=== PATIENT | female | born 1940 | race Caucasian/White ===

== ENCOUNTER 2016-03-07 20:10 | Emergency (ER) | payer OTHER, MEDICARE ==
[2016-03-07 20:27] VITALS: TEMP 98.5; BMI 18.1
[2016-03-07] MEDS ORDERED: methylPREDNISolone NA SUCC 125 MG/2 ML VIAL IVPB ONE (20:33)
[2016-03-07] MEDS ORDERED: ALBUTEROL SO4 2.5/IPRATROPIUM 0.5 INH SOL 3 ML VIAL.NEB. NEB ONE ×2 (20:33→21:05)
--- NOTE | 2016-03-07 20:35 | PDOC ---
History of Present Illness - History of Present Illness Initial Comments: 03/07/16 21:26 Patient is a 75 year old female with significant medical hx of HTN, hypothyroidism, anemia, breast CA s/p lumpectomy (remission), lung CA (treated with chemotherapy and radiation), COPD, on O2 at home, who is presenting to the ED for two days of fever. Patient had a fever of 102 and was given 2 Tylenol before coming to the ED; her temperature in the ED was measured at 98.5. The patient also reports some diarrhea and intermittent cough. Patient was sent to the ED by her for concern for fever. Yesterday the patient fell while trying to sit in a chair; she reports that she is generally unsteady. The patient had a recent colonoscopy (01/08/2016, Dr. Reyes) that clipped two bleeding polyps. The patient reports she had significant bleeding afterwards. Denies vomiting. Social Hx: Smoked for 30 years <Madisyn Mejia - Last Filed: 03/08/16 01:57> <Ailyn Vincent - Last Filed: 03/08/16 02:04> - General Chief Complaint: Respiratory Stated Complaint: FEVER Time Seen by Provider: 03/07/16 20:20 Past History <Madisyn Mejia - Last Filed: 03/08/16 01:57> - Past Medical History Anemia: Yes Asthma: No Cancer: Yes (Rt breast CA and lung CA - 2 primaries) Cardiac Disorders: Yes (ASHD S/P STENT) CVA: No COPD: Yes CHF: No Dementia: No Diabetes: No GI Disorders: No Disorders: Yes (uti,renal insuff.) HTN: Yes Hypercholesterolemia: No Liver Disease: No Suicide Attempt (Hx): No Seizures: No Thyroid Disease: Yes (hypothyroidism, MULTIPLE NODULES) - Surgical History Abdominal Surgery: No Appendectomy: No Cardiac Surgery: Yes (STENT) Cholecystectomy: No Lung Surgery: Yes (LUNG BX, LUNG CA) Neurologic Surgery: No Orthopedic Surgery: Yes (CERVICAL, LUMBAR LAMINECTOMIES) - Immunization History Immunization Up to Date: Yes - Psycho/Social/Smoking Cessation Hx Anxiety: No Suicidal Ideation: No Smoking Status: Yes Smoking History: Former smoker Have you smoked in the past 12 months: No Number of Cigarettes Smoked Daily: 0 If you are a former smoker, when did you quit?: 2006 Cigars Per Day: 0 Information on smoking cessation initiated: No 'Breaking Loose' booklet given: 09/29/14 Hx Alcohol Use: No Drug/Substance Use Hx: No Substance Use Type: None Hx Substance Use Treatment: No <Jamie Vincenttl Reyh - Last Filed: 03/08/16 02:04> - Past Medical History Allergies/Adverse Reactions: Allergies Allergy/AdvReac Type Severity Reaction Status Date / Time nalbuphine HCl [From Nubain] Allergy Verified 03/07/16 20:28 Home Medications: Ambulatory Orders Carvedilol [Coreg -] 25 mg PO BID 11/12/15 Citalopram Hydrobromide [Citalopram HBr] 40 mg PO DAILY 11/12/15 Cholecalciferol (Vitamin D3) [Vitamin D -] 1,000 unit PO DAILY 01/07/16 Albuterol 0.083% Nebulizer Heena [Ventolin 0.083% Nebulizer Soln -] 1 amp NEB Q4H PRN #0 amp 01/26/16 Levothyroxine [Synthroid -] 88 mcg PO DAILY@0700 03/07/16 Respiratory Specific PMHX - Complaint Specific PMHX Angina: No Pulmonary Embolus: No <CarltonAilyntl Streeter - Last Filed: 03/08/16 02:04> Review of Systems - Review of Systems Comments:: 03/07/16 21:28 CONSTITUTIONAL: Present: fever Absent: chills, diaphoresis, generalized weakness, malaise, loss of appetite HEENT: Absent: rhinorrhea, nasal congestion, throat pain, throat swelling, difficulty swallowing, mouth swelling, ear pain, eye pain, visual changes CARDIOVASCULAR: Absent: chest pain, syncope, palpitations, irregular heart rate, lightheadedness , peripheral edema RESPIRATORY: Present: cough Absent: shortness of breath, dyspnea with exertion, orthopnea, wheezing, stridor , hemoptysis GASTROINTESTINAL: Present: diarrhea Absent: abdominal pain, abdominal distension, nausea, vomiting, constipation, melena, hematochezia GENITOURINARY: Absent: dysuria, frequency, urgency, hesitancy, hematuria, flank pain, genital pain MUSCULOSKELETAL: Absent: myalgia, arthralgia, joint swelling SKIN: Absent: rash, itching, pallor HEMATOLOGIC/IMMUNOLOGIC: Absent: easy bleeding, easy bruising, lymphadenopathy, frequent infections ENDOCRINE: Absent: unexplained weight gain, unexplained weight loss, heat intolerance, cold intolerance NEUROLOGIC: Absent: headache, focal weakness or paresthesia, dizziness, unsteady gait, seizure, mental status changes, bladder or bowel incontinence. PSYCHIATRIC: Absent: anxiety, depression, suicidal or homicidal ideation, hallucinations <Madisyn Mejia - Last Filed: 03/08/16 01:57> *Physical Exam - Vital Signs Last Vital Signs Temp Pulse Resp BP Pulse Ox 98.5 F 91 H 20 103/60 88 L 03/07/16 20:24 03/07/16 20:24 03/07/16 20:24 03/07/16 20:24 03/07/16 20:24 - Physical Exam Comments: 03/07/16 21:28 GENERAL: Well developed, well nourished. Awake and alert. No acute distress. HEENT: Normocephalic, atraumatic. PERRLA, EOMI. No conjunctival pallor. Sclera are non- icteric. Moist mucous membranes. Oropharynx is clear. NECK: Supple. Full ROM. No JVD. Carotid pulses 2+ and symmetric, without bruits. No thyromegaly. No lymphadenopathy. CARDIOVASCULAR: Regular rate and rhythm. Holosystolic murmur. No rubs or gallops. Distal pulses are 2+ and symmetric. PULMONARY: No evidence of respiratory distress. Rhonchorous breath sounds. No wheezing or rales. ABDOMINAL: Soft. Non-tender. Non-distended. No rebound or guarding. No organomegaly. Normoactive bowel sounds. MUSCULOSKELETAL: Normal range of motion at all joints. No bony deformities or tenderness. No CVA tenderness. EXTREMITIES: No cyanosis. No clubbing. No edema. No calf tenderness. SKIN: Warm and dry. Normal capillary refill. No rashes. No jaundice. NEUROLOGICAL: Alert, awake, appropriate. Cranial nerves 2-12 intact. Normal speech. PSYCHIATRIC: Cooperative. Good eye contact. Appropriate mood and affect. <Madisyn Mejia - Last Filed: 03/08/16 01:57> - Vital Signs Last Vital Signs Temp Pulse Resp BP Pulse Ox 98.5 F 91 H 20 103/60 88 L 03/07/16 20:24 03/07/16 20:24 03/07/16 20:24 03/07/16 20:24 03/07/16 20:24 <Ailyn Vincent - Last Filed: 03/08/16 02:04> Heart Score/ECG Review #1 03/07/16 21:30 Poor data quality, interpretation may be adversely affected Normal sinus rhythm at 91 bpm Normal ECG <RobertoMadisyn - Last Filed: 03/08/16 01:57> ED Treatment Course - LABORATORY CBC & Chemistry Diagram: 03/07/16 20:50 03/07/16 20:50 - ADDITIONAL ORDERS Additional order review: 03/07/16 20:50 RBC 3.37 L MCV 91.6 MCHC 31.2 L RDW 14.7 MPV 7.8 Neutrophils % 83.6 H D Lymphocytes % 10.0 D Monocytes % 5.9 Eosinophils % 0.3 D Basophils % 0.2 - Medications Given in the ED: ED Medications Discontinued Medications Generic Name Dose Route Start Last Admin Trade Name Freq PRN Reason Stop Dose Admin Albuterol/Ipratropium 1 amp 03/07/16 20:33 03/07/16 21:16 Duoneb - NEB 03/07/16 20:34 1 amp ONCE ONE Administration Methylprednisolone Sodium Succinate 125 mg 03/07/16 20:33 03/07/16 21:16 Solu-Medrol - IVPB 03/07/16 20:34 125 mg ONCE ONE Administration - Consult/PCP Time Called: 01:55 Case discussed with personal care physician: John Reyes <RobertoMadisyn - Last Filed: 03/08/16 01:57> - LABORATORY CBC & Chemistry Diagram: 03/07/16 20:50 03/07/16 20:50 - RADIOLOGY Radiology Studies Ordered: Category Date Time Status CHEST X-RAY PORTABLE* [RAD] Stat Radiology 03/07/16 20:33 Ordered <Ailyn Vincent - Last Filed: 03/08/16 02:04> Medical Decision Making - Medical Decision Making 03/07/16 20:36 75-year-old female brought in by ambulance from home because of fever. Also, the paramedics stated that the was concerned because she had a fall yesterday-the pt said she missed a chair she was trying to seat in and fell. Past medical history significant for breast cancer with left lumpectomy and also lung cancer. She is oxygen dependent at home.she was admitted for GI bleed January 21. Past surgical history -coronary stenting, right lumpectomy,, laminectomy, tonsilectomy, TL past surgical-aortic stenosis, CAD lung ca, osteoarthritis, hypothyroidism, osteopenia Patient is alert and oriented 3 on exam,pt is a very thin, alert female with some mild left gait disturbance. She states she has been ambulating like this for some time since receiving chemo.She normally walks w a cane. [facility]mur She has rhonchorous breath sounds bilaterally Her EKG is normal sinus rhythm at 91 bpm Patient might have influenza or pneumonia Plan chest x-ray, influenza culture, CBC, cardiac, EKG, chemistry, supplemental oxygen 03/08/16 00:17 NEGATIVE influenza cxr no infiltrates cbc -shows leukocytosis chemistry cr= 2.6 bun=44 . I reviewed prior labs and this pt has chronic renal insuff ekg NSR @ 91 bpm 03/08/16 01:09 03/08/16 01:12 03/08/16 01:19 03/08/16 01:58 urinalysis is negative Vital signs shows she is afebrile t=97.5 yb=298/64 p=74 She is normotensive Case is discussed w Dr John Reyes and he was covering for Dr. Thompson Plan-followup qi Dr Thompson this week <Ailyn Vincent - Last Filed: 03/08/16 02:04> *DC/Admit/Observation/Transfer - Attestations Scribe Attestion: 03/07/16 21:30 Documentation prepared by Madisyn Mejia, acting as medical billing and coding specialist for Ailyn Vincent MD. <Madisyn Mejia - Last Filed: 03/08/16 01:57> <Ailyn Vincent - Last Filed: 03/08/16 02:04> Diagnosis at time of Disposition: Leukocytosis Qualifiers: Leukocytosis type: unspecified Qualified Code(s): D72.829 - Elevated white blood cell count, unspecified COPD (chronic obstructive pulmonary disease) Qualifiers: COPD type: unspecified COPD Qualified Code(s): J44.9 - Chronic obstructive pulmonary disease, unspecified - Discharge Dispostion Disposition: HOME Condition at time of disposition: Stable - Prescriptions Prescriptions: Hydrocortisone Acetate [Anusol Hc Suppository -] 25 mg RC BID PRN #28 supp.rect PRN Reason: Hemorrhoids Levofloxacin [Levaquin] 500 mg PO DAILY #7 tablet - Referrals Referrals: Isaiah Thompson MD [Primary Care Provider] - - Patient Instructions Printed Discharge Instructions: DI for Chronic Bronchitis Additional Instructions: please follow up with Dr Thompson this week Return for any worsening symptoms
[2016-03-07] MEDS ORDERED: methylPREDNISolone NA SUCC 125 MG/2 ML VIAL ONE (21:05)
[2016-03-07 21:16] LABS: BASOPHIL 0.2 % (0-2.0); EOSINOPHIL 0.3 % (0-4.5); MCH 28.6 pg (25.7-33.7); MCHC 31.2 g/dl (32.0-36.0); MEAN CELL VOLUME 91.6 fl (80-96); MEAN PLT VOLUME 7.8 fl (7.5-11.1); NEUTROPHILS 83.6 % (42.8-82.8); PLATELET COUNT 237 K/MM3 (134-434); RDW 14.7 % (11.6-15.6); WHITE BLOOD COUNT 14.5 K/mm3 (4.0-10.0)
[2016-03-07 21:27] LABS: INR 1.04 (0.82-1.09); PROTHROMBIN TIME (PATIENT) 11.5 SEC (9.98-11.88)
[2016-03-07 21:38] LABS: ALBUMIN 2.8 g/dl (3.4-5.0); BILIRUBIN,TOTAL 0.4 mg/dL (0.2-1.0); CALCIUM 8.5 mg/dL (8.5-10.1); CREATININE 2.6 mg/dL (0.55-1.02)
[2016-03-07 21:49] LABS: TROPONIN I < 0.02 ng/ml (0.00-0.05)
[2016-03-08 01:17] LABS: URINE APPEARANCE CLEAR; URINE BILIRUBIN NEGATIVE (NEGATIVE); URINE BLOOD NEGATIVE (NEGATIVE); URINE COLOR LT. YELLOW; URINE GLUCOSE (UA) NEGATIVE (NEGATIVE); URINE KETONE NEGATIVE (NEGATIVE); URINE LEUK ESTERASE NEGATIVE (NEGATIVE); URINE NITRITE NEGATIVE (NEGATIVE); URINE PROTEIN NEGATIVE (NEGATIVE); URINE UROBILINOGEN 0.2 E.U/dl E.U./dl (0.2-1.0)
[2016-03-08 01:27] VITALS: BP 125/71; PULSE 77
[2016-03-08] MEDS ORDERED: AZITHROMYCIN 250 MG TABLET (FP) PO ONE (02:06)
[2016-03-08] MEDS ORDERED: AZITHROMYCIN 250 MG TABLET (FP) ONE (02:34)
--- NOTE | 2016-03-08 18:08 | EKG ---
Test Reason : Blood Pressure : / mmHG Vent. Rate : 091 BPM Atrial Rate : 091 BPM P-R Int : 156 ms QRS Dur : 084 ms QT Int : 332 ms P-R-T Axes : 090 024 078 degrees QTc Int : 408 ms NORMAL SINUS RHYTHM NORMAL ECG WHEN COMPARED WITH ECG OF 22-JAN-2016 08:42, NO SIGNIFICANT CHANGE WAS FOUND Confirmed by ANTONY CLEMENTE MD ([id number]) on 03/08/2016 6:08:20 PM Referred By: Confirmed By:ANTONY CLEMENTE MD
== END 2016-03-08 03:31 | disposition home or self-care (01) ==
LOC: JER 20:10
PROC: 3E0F7GC Introduction of Other Therapeutic Substance into Respiratory Tract, Via Natural or Artificial Opening (ICD-10-PCS; principal; 2016-03-07)
PROC: 3E0333Z Introduction of Anti-inflammatory into Peripheral Vein, Percutaneous Approach (ICD-10-PCS; 2016-03-07)
DX: D72.829 Elevated white blood cell count, unspecified (principal); J44.9 Chronic obstructive pulmonary disease, unspecified; I10 Essential (primary) hypertension; E03.9 Hypothyroidism, unspecified; Z85.3 Personal history of malignant neoplasm of breast; Z85.118 Personal history of other malignant neoplasm of bronchus and lung
CPT/HCPCS: 36415; 71010-TC; 80053; 81003; 82550; 84484; 85025; 85610; 87040; 87086; 87804; 93005; 93010; 99283-25

== ENCOUNTER 2016-03-28 15:37 | Inpatient (IN) | payer OTHER, MEDICARE ==
[2016-03-28] MEDS ORDERED: SODIUM CHLORIDE 1,000 ML IV STA (16:14)
[2016-03-28 16:36] LABS: BASOPHIL 0.6 % (0-2.0); EOSINOPHIL 0.1 % (0-4.5); MCH 29.5 pg (25.7-33.7); MCHC 32.6 g/dl (32.0-36.0); MEAN CELL VOLUME 90.5 fl (80-96); MEAN PLT VOLUME 8.2 fl (7.5-11.1); NEUTROPHILS 84.5 % (42.8-82.8); PLATELET COUNT 281 K/MM3 (134-434); RDW 15.3 % (11.6-15.6)
--- NOTE | 2016-03-28 16:52 | PDOC ---
History of Present Illness <Ailyn Vincent - Last Filed: 03/28/16 19:23> - History of Present Illness Initial Comments: 03/28/16 18:33 Patient is a 76 year old female with significant medical hx of breast CA s/p lumpectomy (11 years ago, treated with chemo and radiation), CAD s/p stent, hypothyroidism, COPD (on 3 liters of O2 at home), lung CA (last chemo 2 years ago), anemia, and GI bleed who is has been sent to the ED by PCP for fall and hypotension. Patient reports shes fallen x 3 in the last five days; shes presenting with an abrasion to her left elbow that she bandaged. The patient reports shes been very weak and having difficulty ambulating. Today while being seen at her PMDs office, she was found hypotensive at 60/40, and sent to the ED for further evaluation. The patient is 77% on room air without O2, but is 98% with three liters. No fever, chills, nausea, or vomiting. <Madisyn Mejia - Last Filed: 03/28/16 22:33> - General Chief Complaint: Blood Pressure Problem Stated Complaint: PCP SENT, DIZZINESS Past History - Past Medical History Anemia: Yes Asthma: No Cancer: Yes (Rt breast CA and lung CA - 2 primaries) Cardiac Disorders: Yes (ASHD S/P STENT) CVA: No COPD: Yes CHF: No Dementia: No Diabetes: No GI Disorders: No Disorders: Yes (uti,renal insuff.) HTN: Yes Hypercholesterolemia: No Liver Disease: No Suicide Attempt (Hx): No Seizures: No Thyroid Disease: Yes (hypothyroidism, MULTIPLE NODULES) - Surgical History Abdominal Surgery: No Appendectomy: No Cardiac Surgery: Yes (STENT) Cholecystectomy: No Lung Surgery: Yes (LUNG BX, LUNG CA) Neurologic Surgery: No Orthopedic Surgery: Yes (CERVICAL, LUMBAR LAMINECTOMIES) - Immunization History Immunization Up to Date: Yes - Psycho/Social/Smoking Cessation Hx Anxiety: No Suicidal Ideation: No Smoking Status: Yes Smoking History: Former smoker Have you smoked in the past 12 months: No Number of Cigarettes Smoked Daily: 0 If you are a former smoker, when did you quit?: 2005 Cigars Per Day: 0 Information on smoking cessation initiated: No 'Breaking Loose' booklet given: 09/29/14 Hx Alcohol Use: No Drug/Substance Use Hx: No Substance Use Type: None Hx Substance Use Treatment: No <Ailyn Vincent - Last Filed: 03/28/16 19:23> <Madisyn Mejia - Last Filed: 03/28/16 22:33> - Past Medical History Allergies/Adverse Reactions: Allergies Allergy/AdvReac Type Severity Reaction Status Date / Time nalbuphine HCl [From Nubain] Allergy Verified 03/28/16 15:51 Home Medications: Ambulatory Orders Carvedilol [Coreg -] 25 mg PO BID 11/12/15 Citalopram Hydrobromide [Citalopram HBr] 40 mg PO DAILY 11/12/15 Cholecalciferol (Vitamin D3) [Vitamin D -] 1,000 unit PO DAILY 01/07/16 Albuterol 0.083% Nebulizer Heena [Ventolin 0.083% Nebulizer Soln -] 1 amp NEB Q4H PRN #0 amp 01/26/16 Levothyroxine [Synthroid -] 88 mcg PO DAILY@0700 03/07/16 Azithromycin [Zithromax -] 250 mg PO UTDICT #6 tab 03/08/16 Review of Systems - Review of Systems Comments:: 03/28/16 18:34 CONSTITUTIONAL: Present: generalized weakness Absent: fever, chills, diaphoresis, malaise, loss of appetite HEENT: Absent: rhinorrhea, nasal congestion, throat pain, throat swelling, difficulty swallowing, mouth swelling, ear pain, eye pain, visual changes CARDIOVASCULAR: Present: hypotension Absent: chest pain, syncope, palpitations, irregular heart rate, lightheadedness , peripheral edema RESPIRATORY: Absent: cough, shortness of breath, dyspnea with exertion, orthopnea, wheezing, stridor, hemoptysis GASTROINTESTINAL: Absent: abdominal pain, abdominal distension, nausea, vomiting, diarrhea, constipation, melena, hematochezia GENITOURINARY: Absent: dysuria, frequency, urgency, hesitancy, hematuria, flank pain, genital pain MUSCULOSKELETAL: Absent: myalgia, arthralgia, joint swelling SKIN: Present: abrasion to left elbow Absent: rash, itching, pallor HEMATOLOGIC/IMMUNOLOGIC: Absent: easy bleeding, easy bruising, lymphadenopathy, frequent infections ENDOCRINE: Absent: unexplained weight gain, unexplained weight loss, heat intolerance, cold intolerance NEUROLOGIC: Present: difficulty ambulating, frequent falls Absent: headache, focal weakness or paresthesia, dizziness, seizure, mental status changes, bladder or bowel incontinence. PSYCHIATRIC: Absent: anxiety, depression, suicidal or homicidal ideation, hallucinations <Madisyn Mejia - Last Filed: 03/28/16 22:33> *Physical Exam - Vital Signs Last Vital Signs Temp Pulse Resp BP Pulse Ox 95.0 F L 79 18 74/56 98 03/28/16 15:52 03/28/16 16:33 03/28/16 16:33 03/28/16 16:33 03/28/16 16:33 <Ailyn Vincent - Last Filed: 03/28/16 19:23> - Vital Signs Last Vital Signs Temp Pulse Resp BP Pulse Ox 95.0 F L 74 18 109/52 98 03/28/16 15:52 03/28/16 17:31 03/28/16 16:33 03/28/16 17:31 03/28/16 16:33 - Physical Exam Comments: 03/28/16 18:37 GENERAL: Cachectic. Awake and alert. No acute distress. HEENT: Normocephalic, atraumatic. PERRLA, EOMI. No conjunctival pallor. Sclera are non- icteric. Dry mucous membranes. Oropharynx is clear. NECK: Supple. Full ROM. No JVD. Carotid pulses 2+ and symmetric, without bruits. No thyromegaly. No lymphadenopathy. CARDIOVASCULAR: Left anterior chest port. Regular rate and rhythm. No murmurs, rubs, or gallops. Distal pulses are 2+ and symmetric. PULMONARY: No evidence of respiratory distress. Bibasilar rales bilaterally. No wheezing or rhonchi. ABDOMINAL: Flat. Non-tender. Non-distended. No rebound or guarding. No organomegaly. Normoactive bowel sounds. MUSCULOSKELETAL: Normal range of motion at all joints. No bony deformities or tenderness. No CVA tenderness. EXTREMITIES: No cyanosis. No clubbing. No edema. No calf tenderness. SKIN: Warm and dry. Normal capillary refill. No rashes. No jaundice. NEUROLOGICAL: Alert, awake, appropriate. Cranial nerves 2-12 intact. Normal speech. PSYCHIATRIC: Cooperative. Good eye contact. Appropriate mood and affect. RECTAL: Scant stool in the rectal vault. <RobertoMadisyn - Last Filed: 03/28/16 22:33> Heart Score/ECG Review - History History: Slightly suspicious - Electrocardiogram EKG: Non specific repolarization disturbance - Age Age: >/= 65 - Risk Factors Risk Factors Heart Score: Yes Positive family hx of cardiac disease Based on the list above the patient has:: 1-2 risk factors - Troponin Troponin: 1-3x normal limit - Score Heart Score - Total: 5 - ECG Intrepretation Rhythm: Regular Rhythm - P and CT Atrial Enlargement: Left Delta Wave(s) Present: No WPW: No - ST and T Non Specific ST-T Wave changes: Yes - ECG Impressions Torsades sivakumar Pointes: No WPW: No <Ailyn Vincent - Last Filed: 03/28/16 19:23> #1 03/28/16 18:53 Sinus rhythm at 82 bpm with occasional premature ventricular complexes Possible left atrial enlargement Left ventricular hypertrophy Abnormal ECG <RobertoMadisyn - Last Filed: 03/28/16 22:33> ED Treatment Course - LABORATORY CBC & Chemistry Diagram: 03/28/16 16:30 03/28/16 16:30 - ADDITIONAL ORDERS Additional order review: 03/28/16 16:30 RBC 3.59 L MCV 90.5 MCHC 32.6 RDW 15.3 MPV 8.2 Neutrophils % 84.5 H Lymphocytes % 8.6 Monocytes % 6.2 Eosinophils % 0.1 Basophils % 0.6 <Ailyn Vincent - Last Filed: 03/28/16 19:23> - LABORATORY CBC & Chemistry Diagram: 03/28/16 16:30 03/28/16 16:30 - ADDITIONAL ORDERS Additional order review: Laboratory Results 03/28/16 03/28/16 03/28/16 17:10 16:30 16:30 INR Sodium 136 Potassium 3.9 Chloride 99 Carbon Dioxide 27 Anion Gap 10 BUN 51 H Creatinine 2.8 H Creat Clearance w eGFR 16.43 Random Glucose 95 Calcium 8.9 Total Bilirubin 0.4 AST 22 D ALT 18 D Alkaline Phosphatase 70 Creatine Kinase 225 H D CK-MB (CK-2) 2.383 Troponin I 0.52 H Total Protein 7.1 Albumin 2.7 L Stool Occult Blood Negative Blood Type B POSITIVE Antibody Screen Negative 03/28/16 16:30 INR 1.08 Sodium Potassium Chloride Carbon Dioxide Anion Gap BUN Creatinine Creat Clearance w eGFR Random Glucose Calcium Total Bilirubin AST ALT Alkaline Phosphatase Creatine Kinase CK-MB (CK-2) Troponin I Total Protein Albumin Stool Occult Blood Blood Type Antibody Screen 03/28/16 16:30 RBC 3.59 L MCV 90.5 MCHC 32.6 RDW 15.3 MPV 8.2 Neutrophils % 84.5 H Lymphocytes % 8.6 Monocytes % 6.2 Eosinophils % 0.1 Basophils % 0.6 - RADIOLOGY Radiograph Interpretation: 03/28/16 18:52 Chest X-Ray Impression: Bilateral increased interstitial markings with interval subsegmental atelectasis versus infiltrates in the left lung base and minimal left pleural effusion. Reported By: Mary Haddad MD 03/28/16 22:[address] Impression: Moderate atrophy and mild chronic microvascular ischemic changes without evidence of acute intracranial pathology. Left side sphenoid chronic sinusitis. Reported By: Mary Haddad MD - Medications Given in the ED: ED Medications Discontinued Medications Generic Name Dose Route Start Last Admin Trade Name Freq PRN Reason Stop Dose Admin Sodium Chloride 1,000 mls @ 1,000 mls/hr 03/28/16 16:14 03/28/16 16:30 Normal Saline - IV 03/28/16 17:13 1,000 mls/hr ASDIR STA Administration <Madisyn Mejia - Last Filed: 03/28/16 22:33> *DC/Admit/Observation/Transfer - Discharge Dispostion Admit: Yes <Ailyn Vincent - Last Filed: 03/28/16 19:23> - Attestations Scribe Attestion: 03/28/16 18:41 Documentation prepared by Madisyn Mejia, acting as medical librarian for Ailyn Vincent MD. <Madisyn Mejia - Last Filed: 03/28/16 22:33> Diagnosis at time of Disposition: Status post fall, Hypoxia, Elevated troponin, Renal insufficiency, Weakness Pneumonia Qualifiers: Pneumonia type: due to unspecified organism Laterality: left Lung location: lower lobe of lung Qualified Code(s): J18.9 - Pneumonia, unspecified organism - Referrals
[2016-03-28 17:00] LABS: INR 1.08 (0.82-1.09); PROTHROMBIN TIME (PATIENT) 11.9 SEC (9.98-11.88)
[2016-03-28 17:07] LABS: ALBUMIN 2.7 g/dl (3.4-5.0); BILIRUBIN,TOTAL 0.4 mg/dL (0.2-1.0); CALCIUM 8.9 mg/dL (8.5-10.1); CREATININE 2.8 mg/dL (0.55-1.02); TOT PROT 7.1 g/dl (6.4-8.2)
[2016-03-28 17:19] LABS: STOOL FOR OCCULT BLOOD NEGATIVE (NEGATIVE)
[2016-03-28 17:33] LABS: TROPONIN I 0.52 ng/ml (0.00-0.05)
[2016-03-28] MEDS ORDERED: ALBUTEROL SO4 2.5/IPRATROPIUM 0.5 INH SOL 3 ML VIAL.NEB. NEB PRN (18:16)
[2016-03-28] MEDS ORDERED: LEVOFLOXACIN 500 MG IVPB 100 ML IVPB ONE ×2 (19:20→23:25)
[2016-03-28] MEDS ORDERED: RANITIDINE HCL 150 MG TABLET (FP) ONE (23:25)
[2016-03-28] MEDS: RANITIDINE HCL 150 MG TABLET (FP) PO SCH (23:36)
[2016-03-29 02:13] VITALS: BMI 17.8
[2016-03-29] MEDS: LEVOTHYROXINE NA 88 MCG TABLET (FP) PO SCH (06:41)
--- NOTE | 2016-03-29 07:55 | HP ---
Admitting History and Physical - Admission History of Present Illness: 76 year old female with significant medical hx of breast CA s/p lumpectomy (11 years ago, treated with chemo and radiation), CAD s/p stent, hypothyroidism, COPD (on 3 liters of O2 at home), lung CA (last chemo 2 years ago), anemia, and GI bleed who is has been sent to the ED for fall and hypotension. Patient reports shes fallen x 3 in the last five days; shes presenting with an abrasion to her left elbow that she bandaged. The patient reports shes been very weak and having difficulty ambulating. Today while being seen at her PMDs office, she was found hypotensive at 60/40, and sent to the ED for further evaluation. The patient is 77% on room air without O2, but is 98% with three liters. No fever, chills, nausea, or vomiting. - Past Medical History Cardiovascular: Yes: Aortic Stenosis, CAD (with coronary stenting), HTN, Hyperlipdemia, Mitral Insufficiency, Pulmonary Hypertension Pulmonary: Yes: Cancer (Chemothrerapy for small cell carcinoma- Dr Simpson), COPD Gastrointestinal: Yes: Diverticulosis, Other (Breast lumpectomy) Renal/: Yes: Renal Failure, Renal Inusuff Heme/Onc: Yes: Cancer Psych: Yes: Anxiety Musculoskeletal: Yes: Chronic low back pain, Osteoarthritis Endocrine: Yes: Hypothyroidism, Osteopenia - Past Surgical History Past Surgical History: Yes: Laminectomy (cervical '99, lumbar '97), Tonsillectomy, Tubal Ligation - Smoking History Smoking history: Former smoker Have you smoked in the past 12 months: No Aproximately how many cigarettes per day: 0 If you are a former smoker, when did you quit?: 2004 - Alcohol/Substance Use Hx Alcohol Use: No Date of Last Use: 02/27/81 - Social History ADL: Independent 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 History of Recent Travel: No Home Medications - Allergies Allergies/Adverse Reactions: Allergies Allergy/AdvReac Type Severity Reaction Status Date / Time nalbuphine HCl [From Nubain] Allergy Verified 03/28/16 15:51 - Home Medications Home Medications: Ambulatory Orders RX: Carvedilol [Coreg -] 25 mg PO BID 11/12/15 RX: Citalopram Hydrobromide [Citalopram HBr] 40 mg PO DAILY 11/12/15 RX: Cholecalciferol (Vitamin D3) [Vitamin D -] 1,000 unit PO DAILY 01/07/16 RX: Albuterol 0.083% Nebulizer Heena [Ventolin 0.083% Nebulizer Soln -] 1 amp NEB Q4H PRN #0 amp 01/26/16 RX: Levothyroxine [Synthroid -] 88 mcg PO DAILY@0700 03/07/16 Azithromycin [Zithromax -] 250 mg PO UTDICT #6 tab 03/08/16 Family Disease History - Family Disease History Family Disease History: CA: Father (diffuse unknown primary), Sister ( of lung cancer), Other: Mother ( after hip fracture) Review of Systems - Review of Systems Constitutional: reports: Weakness Cardiovascular: reports: Shortness of Breath. denies: Chest Pain Respiratory: reports: SOB, SOB on Exertion Gastrointestinal: reports: No Symptoms Genitourinary: reports: No Symptoms Neurological: reports: Tremors, Unsteady Gait, Weakness Physical Examination Vital Signs: Vital Signs Temperature 98.5 F 03/29/16 06:00 Pulse Rate 96 H 03/29/16 06:00 Respiratory Rate 18 03/29/16 06:00 Blood Pressure 122/75 03/29/16 06:00 O2 Sat by Pulse Oximetry (%) 98 03/29/16 02:41 Cardiovascular: Yes: Regular Rate and Rhythm Respiratory: Yes: Diminished, On Nasal O2 Gastrointestinal: Yes: Normal Bowel Sounds, Soft Edema: No Imaging - Results Chest X-ray: Report Reviewed Problem List - Problems (1) Elevated troponin Assessment/Plan: MONITOR CARDIO Code(s): R79.89 - OTHER SPECIFIED ABNORMAL FINDINGS OF BLOOD CHEMISTRY (2) Hypoxia Assessment/Plan: O2 NEBS PULM Code(s): R09.02 - HYPOXEMIA (3) Status post fall Assessment/Plan: PT NEURO Code(s): Z91.89 - OTH PERSONAL RISK FACTORS, NOT ELSEWHERE CLASSIFIED (4) COPD (chronic obstructive pulmonary disease) Assessment/Plan: NEBS SHAJI BX Code(s): J44.9 - CHRONIC OBSTRUCTIVE PULMONARY DISEASE, UNSPECIFIED Qualifiers : COPD type: unspecified COPD Qualified Code(s): J44.9 - Chronic obstructive pulmonary disease, unspecified (5) Myoclonus Assessment/Plan: NEURO Code(s): G25.3 - MYOCLONUS
[2016-03-29 08:36] LABS: CHOLESTEROL 156 mg/dL (50-200)
[2016-03-29 09:36] LABS: LDL CHOLESTEROL (ONLY SJRH) 78 mg/dL (5-100)
[2016-03-29] MEDS ORDERED: methylPREDNISolone NA SUCC 125 MG/2 ML VIAL ONE (10:17)
[2016-03-29] MEDS: RANITIDINE HCL 150 MG TABLET (FP) PO SCH (10:21)
[2016-03-29] MEDS: CITALOPRAM HYDROBROMIDE 20 MG TABLET (FP) PO SCH (10:21)
[2016-03-29] MEDS: methylPREDNISolone NA SUCC 40 MG/1 ML VIAL IVPB SCH ×2 (10:21→18:19)
[2016-03-29] MEDS: CARVEDILOL 3.125 MG TABLET (FP) PO SCH ×2 (10:22→20:59)
[2016-03-29] MEDS: ACETAMINOPHEN 325 MG TABLET (FP) PO PRN (11:15)
--- NOTE | 2016-03-29 11:21 | CON.CARD ---
Consult Consult Specialty:: Cardiology Referred by:: Dr. Thompson Reason for Consultation:: Cardiac evaluation - History of Present Illness Chief Complaint: Dizziness and fall History of Present Illness: Patient is a 76 year old female well known to our service as she was seen multiple times in the hospital, known history of CAD S/P PCI/stent, angina pectoris, diastolic left ventricular dysfunction with class 1 NYHA classification LV failure, aortic valve disease (moderate ), hypercholesterolemia, pulmonary hypertension, HTN/HCVD, lung CA post chemotherapy, breast CA post chemotherapy, COPD, CKD and diverticular disease. She was last seen in December 2015 for rectal bleed. Currently she is admitted with dizziness, unsteady gait and fall. She denies chest pain, shortness of breath or palpitations. Troponin was elevated above 0.5. She denies paroxysmal nocturnal dyspnea or orthopnea. She denies fever or chills. Denies headache, nausea or vomiting. Denies cough or expectoration. Cardiology consultation was called for further evaluation. - History Source History Provided By: Patient, Medical Record Limitations to Obtaining History: No Limitations - Past Medical History Cardio/Vascular: Yes: Aortic Stenosis, CAD (with coronary stenting), HTN, Hyperlipdemia, Mitral Insufficiency, Pulmonary Hypertension Pulmonary: Yes: Cancer (Chemothrerapy for small cell carcinoma- Dr Simpson), COPD Gastrointestinal: Yes: Diverticulosis, Other (Breast lumpectomy) Renal/: Yes: Renal Failure, Renal Inusuff Psych: Yes: Anxiety Musculoskeletal: Yes: Chronic low back pain, Osteoarthritis Endocrine: Yes: Hypothyroidism, Osteopenia - Past Surgical History Past Surgical History: Yes: Laminectomy (cervical ', lumbar '), Stent, Tonsillectomy, Tubal Ligation - Alcohol/Substance Use Hx Alcohol Use: No Date of Last Use: 02/27/81 - Smoking History Smoking history: Former smoker Have you smoked in the past 12 months: No Aproximately how many cigarettes per day: 0 If you are a former smoker, when did you quit?: 2004 - Social History Usual Living Arrangement: With Spouse ADL: Independent 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 History of Recent Travel: No Home Medications - Allergies Allergies/Adverse Reactions: Allergies Allergy/AdvReac Type Severity Reaction Status Date / Time nalbuphine HCl [From Nubain] Allergy Verified 03/28/16 15:51 - Home Medications Home Medications: Ambulatory Orders Carvedilol [Coreg -] 25 mg PO BID 11/12/15 Citalopram Hydrobromide [Citalopram HBr] 40 mg PO DAILY 11/12/15 Cholecalciferol (Vitamin D3) [Vitamin D -] 1,000 unit PO DAILY 01/07/16 Albuterol 0.083% Nebulizer Heena [Ventolin 0.083% Nebulizer Soln -] 1 amp NEB Q4H PRN #0 amp 01/26/16 Levothyroxine [Synthroid -] 88 mcg PO DAILY@0700 03/07/16 Azithromycin [Zithromax -] 250 mg PO UTDICT #6 tab 03/08/16 Family Disease History - Family Disease History Family Disease History: CA: Father (diffuse unknown primary), Sister ( of lung cancer), Other: Mother ( after hip fracture) Review of Systems - Review of Systems Constitutional: reports: Weakness. denies: Chills, Fever Cardiovascular: denies: Chest Pain, Palpitations, Shortness of Breath Respiratory: denies: Cough, Hemoptysis, Orthopnea, PND, SOB, SOB on Exertion Gastrointestinal: denies: Abdominal Pain, Constipation, Diarrhea, Melena, Nausea , Rectal Bleeding, Vomiting Genitourinary: denies: Dysuria Neurological: reports: Dizziness, Unsteady Gait, Weakness. denies: Headache, Seizure, Syncope Vital Signs: Vital Signs Temperature 98.5 F 03/29/16 06:00 Pulse Rate 96 H 03/29/16 06:00 Respiratory Rate 18 03/29/16 06:00 Blood Pressure 122/75 03/29/16 06:00 O2 Sat by Pulse Oximetry (%) 98 03/29/16 02:41 Neck: Yes: Supple Respiratory: Yes: Diminished Gastrointestinal: Yes: Normal Bowel Sounds, Soft. No: Tenderness Cardiovascular: Yes: Regular Rate and Rhythm JVD: No Carotid Bruit: No PMI: Non-Displaced Heart Sounds: Yes: S1, S2 Murmur: Yes: Systolic Murmur ([place]), Grade 2 Edema: No - Other Data Labs, Other Data: INR, PTT INR 1.08 (0.82-1.09) 03/28/16 16:30 Laboratory Results - last 24 hr 03/28/16 03/28/16 03/28/16 16:30 16:30 16:30 WBC 19.0 H D RBC 3.59 L Hgb 10.6 L D Hct 32.5 MCV 90.5 MCHC 32.6 RDW 15.3 Plt Count 281 MPV 8.2 Neutrophils % 84.5 H Lymphocytes % 8.6 Monocytes % 6.2 Eosinophils % 0.1 Basophils % 0.6 INR 1.08 Sodium 136 Potassium 3.9 Chloride 99 Carbon Dioxide 27 Anion Gap 10 BUN 51 H Creatinine 2.8 H Creat Clearance w eGFR 16.43 Random Glucose 95 Lactic Acid Calcium 8.9 Total Bilirubin 0.4 AST 22 D ALT 18 D Alkaline Phosphatase 70 Creatine Kinase 225 H D CK-MB (CK-2) 2.383 Troponin I 0.52 H Total Protein 7.1 Albumin 2.7 L Triglycerides Cholesterol Total LDL Cholesterol HDL Cholesterol Stool Occult Blood Blood Type Antibody Screen 03/29/16 07:25 WBC RBC Hgb Hct MCV MCHC RDW Plt Count MPV Neutrophils % Lymphocytes % Monocytes % Eosinophils % Basophils % INR Sodium Potassium Chloride Carbon Dioxide Anion Gap BUN Creatinine Creat Clearance w eGFR Random Glucose Lactic Acid Calcium Total Bilirubin AST ALT Alkaline Phosphatase Creatine Kinase CK-MB (CK-2) Troponin I Total Protein Albumin Triglycerides 129 D Cholesterol 156 Total LDL Cholesterol 78 HDL Cholesterol 63 H Stool Occult Blood Blood Type Antibody Screen Sinus rhythm with PVCs, no ST T abnormality Echo: Report Reviewed (Normal LV sytolic function, moderate ,) Imaging - Results Chest X-ray: Report Reviewed (Atelectasis vs infiltrates) Cat Scan: Report Reviewed (Head CT noted) EKG: Report Reviewed Problem List - Problems (1) Elevated troponin Code(s): R79.89 - OTHER SPECIFIED ABNORMAL FINDINGS OF BLOOD CHEMISTRY (2) Status post fall Code(s): Z91.89 - OTH PERSONAL RISK FACTORS, NOT ELSEWHERE CLASSIFIED (3) Weakness Code(s): R53.1 - WEAKNESS (4) ASHD (arteriosclerotic heart disease) Code(s): I25.10 - ATHSCL HEART DISEASE OF [place] CORONARY ARTERY W/O ANG PCTRS (5) Anemia Code(s): D64.9 - ANEMIA, UNSPECIFIED Qualifiers: Anemia type: due to other cause Other causes of anemia: chronic disease , kidney (6) Aortic stenosis Code(s): I35.0 - NONRHEUMATIC AORTIC (VALVE) STENOSIS Qualifiers: Cardiac valve disease etiology: nonrheumatic Qualified Code(s): I35.0 - Nonrheumatic aortic (valve) stenosis (7) COPD (chronic obstructive pulmonary disease) Code(s): J44.9 - CHRONIC OBSTRUCTIVE PULMONARY DISEASE, UNSPECIFIED Qualifiers : COPD type: unspecified COPD Qualified Code(s): J44.9 - Chronic obstructive pulmonary disease, unspecified (8) Dizziness Code(s): R42 - DIZZINESS AND GIDDINESS (9) HTN (hypertension) Code(s): I10 - ESSENTIAL (PRIMARY) HYPERTENSION Qualifiers: Hypertension type: essential hypertension Qualified Code(s): I10 - Essential (primary) hypertension (10) Hypothyroid Code(s): E03.9 - HYPOTHYROIDISM, UNSPECIFIED Qualifiers: Hypothyroidism type: unspecified Qualified Code(s): E03.9 - Hypothyroidism, unspecified (11) Lung cancer Code(s): C34.90 - MALIGNANT NEOPLASM OF UNSP PART OF UNSP BRONCHUS OR LUNG Qualifiers: Lung location: unspecified part of lung (12) S/P coronary artery stent placement Code(s): Z95.5 - PRESENCE OF CORONARY ANGIOPLASTY IMPLANT AND GRAFT Assessment/Plan 1. Dizziness and fall with unsteady gait, no LOC 2. Elevated troponin with underlying history of CAD s/p PCI/stent, angina pectoris - demand ischemia 3. HTN/HCVD 4. Hypercholesterolemia 5. Diastolic left ventricular dysfunction with class 1 NYHA classification LV failure 6. Aortic valve disease - moderate aortic valve stenosis 7. Hypothyroidism 8. History of lung CA post chemotherapy 9. History of breast CA post lumpectomy, chemotherapy 10. CKD 11. Anemia and history of GI bleed PLAN: 1. Continue Carvedilol as tolerated (BP permitting). ACEI or ARB if BP permits 2. Repeat echocardiography to reassess aortic valve disease 3. Trend troponins. Consider further cardiac work up including nuclear myocardial perfusion imaging when troponins are down vs. coronary angiography 4. Currently not on ASA 5. Neuro input to follow 6. Further evaluation for unsteady gait Further plans are to follow Michael Steward MD
--- NOTE | 2016-03-29 14:43 | CONSULT ---
Consult Consult Specialty:: PULM/CCM Referred by:: PMD Reason for Consultation:: SOB / abnormal CXR - History of Present Illness Chief Complaint: Hypotension / SOB History of Present Illness: 76 F, well known to me. History of O2 dependent COPD (on 2 to 3 L NC at home), Breast CA s/p lumpectomy (11 years ago, treated with chemo and radiation), CAD, PCI, Hypothyroidism, Anemia and GI bleed. Admitted via the ER due to hypotension during an office visit to her PMD. Patient reports URI symptoms, including congested cough and generalized malaise for a few days. No travel history or sick contacts. No documented fever or chills. No hemoptysis. Patient apparently was found to be hypoxic to 77% on RA. - History Source History Provided By: Patient Limitations to Obtaining History: No Limitations - Past Medical History Cardio/Vascular: Yes: Aortic Stenosis, CAD (with coronary stenting), HTN, Hyperlipdemia, Mitral Insufficiency, Pulmonary Hypertension Pulmonary: Yes: Cancer (Chemothrerapy for small cell carcinoma- Dr Simpson), COPD Gastrointestinal: Yes: Diverticulosis, Other (Breast lumpectomy) Renal/: Yes: Renal Failure, Renal Inusuff Psych: Yes: Anxiety Musculoskeletal: Yes: Chronic low back pain, Osteoarthritis Endocrine: Yes: Hypothyroidism, Osteopenia - Past Surgical History Past Surgical History: Yes: Laminectomy (cervical ', lumbar '), Stent, Tonsillectomy, Tubal Ligation - Alcohol/Substance Use Hx Alcohol Use: No Date of Last Use: 02/27/81 - Smoking History Smoking history: Former smoker Have you smoked in the past 12 months: No Aproximately how many cigarettes per day: 0 If you are a former smoker, when did you quit?: 2004 - Social History Usual Living Arrangement: With Spouse ADL: Independent 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 History of Recent Travel: No Home Medications - Allergies Allergies/Adverse Reactions: Allergies Allergy/AdvReac Type Severity Reaction Status Date / Time nalbuphine HCl [From Nubain] Allergy Verified 03/28/16 15:51 - Home Medications Home Medications: Ambulatory Orders Carvedilol [Coreg -] 25 mg PO BID 11/12/15 Citalopram Hydrobromide [Citalopram HBr] 40 mg PO DAILY 11/12/15 Cholecalciferol (Vitamin D3) [Vitamin D -] 1,000 unit PO DAILY 01/07/16 Albuterol 0.083% Nebulizer Heena [Ventolin 0.083% Nebulizer Soln -] 1 amp NEB Q4H PRN #0 amp 01/26/16 Levothyroxine [Synthroid -] 88 mcg PO DAILY@0700 03/07/16 Azithromycin [Zithromax -] 250 mg PO UTDICT #6 tab 03/08/16 Family Disease History - Family Disease History Family Disease History: CA: Father (diffuse unknown primary), Sister ( of lung cancer), Other: Mother ( after hip fracture) Review of Systems - Review of Systems Constitutional: reports: Malaise, Weakness. denies: Chills, Fever, Night Sweats , Unintentional Wgt. Loss Eyes: reports: No Symptoms HENT: reports: Nasal Congestion. denies: Difficult Swallowing, Ear Pain, Epistaxis, Throat Pain Neck: reports: No Symptoms Cardiovascular: reports: Shortness of Breath. denies: Chest Pain, Edema, Palpitations Respiratory: reports: Cough, SOB, SOB on Exertion, Wheezing. denies: Hemoptysis , Snoring Gastrointestinal: reports: No Symptoms Genitourinary: reports: No Symptoms Breasts: reports: No Symptoms Reported Musculoskeletal: reports: No Symptoms Integumentary: reports: No Symptoms Neurological: reports: No Symptoms Endocrine: reports: No Symptoms Hematology/Lymphatic: reports: No Symptoms Psychiatric: reports: No Symptoms Physical Exam Vital Signs: Vital Signs Temperature 98.5 F 03/29/16 06:00 Pulse Rate 96 H 03/29/16 06:00 Respiratory Rate 18 03/29/16 06:00 Blood Pressure 122/75 03/29/16 06:00 O2 Sat by Pulse Oximetry (%) 98 03/29/16 02:41 Constitutional: Yes: No Distress, Thin Eyes: Yes: Conjunctiva Clear, EOM Intact HENT: Yes: Atraumatic, Normocephalic Neck: Yes: Supple, Trachea Midline Cardiovascular: Yes: Regular Rate and Rhythm Respiratory: Yes: Cough, On Nasal O2, Rhonchi, Wheezes. No: Accessory Muscle Use, Rales, Stridor, Tachypnea Gastrointestinal: Yes: Normal Bowel Sounds, Soft ...Rectal Exam: Yes: Deferred Renal/: Yes: WNL Musculoskeletal: Yes: WNL Extremities: Yes: WNL Edema: No Peripheral Pulses WNL: Yes Integumentary: Yes: WNL Neurological: Yes: Alert, Oriented ...Motor Strength: WNL Psychiatric: Yes: Alert, Oriented Imaging - Results Chest X-ray: Report Reviewed, Image Reviewed (Possible LLL infiltrate/effusion) Problem List - Problems (1) Dizziness Code(s): R42 - DIZZINESS AND GIDDINESS (2) Hypoxia Code(s): R09.02 - HYPOXEMIA (3) Pneumonia Code(s): J18.9 - PNEUMONIA, UNSPECIFIED ORGANISM Qualifiers: Pneumonia type: due to unspecified organism Laterality: left Lung location: lower lobe of lung Qualified Code(s): J18.9 - Pneumonia, unspecified organism (4) Renal insufficiency Code(s): N28.9 - DISORDER OF KIDNEY AND URETER, UNSPECIFIED (5) Status post fall Code(s): Z91.89 - OT PERSONAL RISK FACTORS, NOT ELSEWHERE CLASSIFIED (6) Weakness Code(s): R53.1 - WEAKNESS (7) ASHD (arteriosclerotic heart disease) Code(s): I25.10 - ATHSCL HEART DISEASE OF [place] CORONARY ARTERY W/O ANG PCTRS (8) Anemia Code(s): D64.9 - ANEMIA, UNSPECIFIED Qualifiers: Anemia type: due to other cause Other causes of anemia: chronic disease , kidney (9) Aortic stenosis Code(s): I35.0 - NONRHEUMATIC AORTIC (VALVE) STENOSIS Qualifiers: Cardiac valve disease etiology: nonrheumatic Qualified Code(s): I35.0 - Nonrheumatic aortic (valve) stenosis (10) Breast CA Code(s): C50.919 - MALIGNANT NEOPLASM OF UNSP SITE OF UNSPECIFIED FEMALE BREAST (11) CAD (coronary artery disease) Code(s): I25.10 - ATHSCL HEART DISEASE OF [place] CORONARY ARTERY W/O ANG PCTRS Qualifiers: Coronary Disease-Associated Artery/Lesion type: [place] artery [place] vs. transplanted heart: [place] heart Associated angina: without angina Qualified Code(s): I25.10 - Atherosclerotic heart disease of [place] coronary artery without angina pectoris (12) COPD (chronic obstructive pulmonary disease) Code(s): J44.9 - CHRONIC OBSTRUCTIVE PULMONARY DISEASE, UNSPECIFIED Qualifiers : COPD type: unspecified COPD Qualified Code(s): J44.9 - Chronic obstructive pulmonary disease, unspecified (13) Cough Code(s): R05 - COUGH (14) HTN (hypertension) Code(s): I10 - ESSENTIAL (PRIMARY) HYPERTENSION Qualifiers: Hypertension type: essential hypertension Qualified Code(s): I10 - Essential (primary) hypertension (15) S/P coronary artery stent placement Code(s): Z95.5 - PRESENCE OF CORONARY ANGIOPLASTY IMPLANT AND GRAFT Assessment/Plan PLAN: Levaquin IVPB ordered adjusted to CrCL Medrol BD TX standing and PRN O2 as needed to maintain saturation Check urine antigen Check sputum culture VTE prophylaxis IVF Will follow Thank you. Dr Henriquez
--- NOTE | 2016-03-29 14:55 | CONS ---
DATE OF CONSULTATION: 03/29/2016 HISTORY OF PRESENT ILLNESS: The patient is a 76-year-old woman with an extensive past medical history including breast cancer status post lumpectomy 11 years ago, treated with chemotherapy and radiation, as well as lung cancer, last chemotherapy 2 years ago, underlying COPD, coronary artery disease, status post stent, who was admitted after multiple falls with weakness. Patient as found to be hypotensive in her primary care physician's office with 60/40 blood pressure. Patient, on admission, had elevation in WBCs, 19.0, hemoglobin 10.6, platelet count 281. She had elevation in BUN, 51, creatinine 2.8. Although she has chronic renal insufficiency, this may have been above her baseline back in December, she had a BUN 25, creatinine 1.9. Patient feels much better. She underwent a CT of the head, which was negative, is currently undergoing echocardiogram and was also noted to have pulse oximetry of 77% on room air, which improved to 98% on 3 L. Patient was evaluated by therapy, able to ambulate 30 feet with a rolling walker, contact guard of 20, and assist for transfers. She does note loss of balance, although she is unsure of the reason. She does not that she has a peripheral neuropathy. No current lightheadedness, dizziness. No current chest pain, shortness of breath. Again, she has some numbness, tingling in the lower extremities but no severe pain. Review of past medical and surgical history as above. Also a history of aortic stenosis, hypertension, hyperlipidemia, mitral insufficiency, pulmonary hypertension, diverticulosis, chronic kidney disease, chronic low back pain, diffuse osteoarthritis, history of cervical and lumbar laminectomies in the late 90s. SOCIAL HISTORY: Lives with spouse but she has a lot of stairs, a whole flight to enter. Premorbidly she was independent. She stated she had an episode similar to this recently but then seemed to get better. She is a former tobacco user, quit in 2004. REVIEW OF SYSTEMS: No headache, no blurry vision or double vision. No nausea, vomiting, difficulty swallowing, difficulty chewing. No chest pain. Again, she does get dyspneic with exertion. No shortness of breath currently at rest. No fever or chills. No bowel or bladder incontinence. She has numbness mainly in the lower extremities. No numbness tingling in the upper extremities. She felt diffusely weak but currently does not feel weak. PHYSICAL EXAMINATION: General: On examination, thin elderly woman seen lying in bed, in no acute distress. She is awake, alert, fully cooperative. HEENT: She is normocephalic, atraumatic. Extraocular muscles appear intact. Neck: Supple, with slightly diminished range of motion. Musculoskeletal: She has arthritic change in the hands, but no edema in the lower extremities. No calf tenderness. Neuromuscular: She is awake, alert, oriented x3. Good insight into her medical conditions. Cranial nerves 2-12 appear grossly intact. Good strength and range in the upper extremities despite arthritic changes which are moderate in her hands. No gross arthritic change in the lower extremities. She has 4/5 strength in the proximal and 5/5 distal strength but hypersensitive to pinprick distally in the lower extremities with depressed reflexes, downgoing toes, unable to stand or ambulate. Currently no assistive device. OVERALL IMPRESSION: 1. Deficits in mobility, activities of daily living. 2. Multiple falls. 3. Status post hypotension. 4. Hypoxia. 5. Underlying chronic obstructive pulmonary disease. 6. Acute on chronic kidney disease. 7. History of lung cancer, status post chemotherapy, last 2 years ago. 8. History of breast cancer, status post chemotherapy. 9. History of cervical and lumbar laminectomies. 10. Coronary artery disease, status post stent. 11. Leukocytosis. 12. Elevated risk for deep vein thrombosis. PLAN, SUGGESTION 1. Continue physical therapy at the bedside. Balance, transfers, gait training, strengthening, reconditioning. 2. Out of bed to chair. 3. Elevated WBCs may be due to Solu-Medrol and/or pain. 4. Consider subcutaneous heparin for DVT prophylaxis. History of cancer and immobility puts her at elevated risk. 5. Avoid heel and sacral pressure. 6. Monitor for constipation. 7. Cardiology workup. 8. May benefit from short-term rehab but not sure she will be agreeable. Thank you very much for this referral. LILY JONES M.D. PATI/[id number]
--- NOTE | 2016-03-29 17:54 | PN ---
Progress Note (short form) - Note Progress Note: Nephrology Pt is followed by Dr Eric Mendoza, I have called him and he is aware of pt. Dr Schilling
--- NOTE | 2016-03-29 22:02 | CONSULT ---
Consult - text type - Consultation Consultation Note: NEUROLOGY CONSULTATION is greatly appreciated: This 76 yo RH woman with h/o HTN in the past, Former smoker with COPD, ASHD s/p stent is known to me in the distant past related to spinal complaints culminating in LS laminectomy in 1996 and cervical laminectomy in 1998. Breast CA s/p lumpectomy, ChemoRx and RT in 2004. Small cell lung Ca treated with chemoRx in 2013. H/O anemia in past. S/p Chemo prtal L chest. Pt describes 6-8 mos of slowly progressing gait dysfunction with imbalance. Falling since December. Hospitalized at that time after fainting. Attributed to hypotension. Now readmitted after multiple falls. Patient attributes to hypotension but typical presyncopal prodrome was not clearly present. CT of head (reviewed): Moderate atrophy and scattered microvascular changes. CHANTEL: Well-healed cervical and LS laminectomies. No bruits. Cor reg. No evidence of head trauma. Multiple bruises and abrasions over the shins. NEURO: Mild OMS. Speech fluent. CN II-XII normal without nystagmus Motor: No drift or tremor. Minimal cogwheel rigidity (L>R) with reinforcement. Normal strength. Slightly decreased ZECHARIAH's. Brisk reflexes except AJ's. Downgoing toes./ Coord: No FTN dystaxia Sensory: Sl decreased vib in feet. Gait: Shuffling, stiff-legged with mild left circumduction. Unsteady. Retropulsive. IMP: Mild B/L cerebral dysfunction with multifactorial gait dysfunction. Contributing factors likely include THREAD REELER microvascular disease, cervical myelopathy and mild extrapyramidal features. Cannot exclude Presyncope from BP fluctuations but patient remains ataxia with high fall risk and stable BP's since admission. SUGGEST: Check B12 levels. Repeat WBC (was 19K) and r/o infection if still elevated. Check orthostatic BP's. MRI of Brain and cervical spine (both C-). PT for gait training with walker. Neuro f/u as out patient. Thank you very much, Kranthi Henriquez MD
[2016-03-29] MEDS: ALBUTEROL SO4 0.083% IH SOL 2.5 MG/3 ML VIAL.NEB. NEB SCH (22:14)
--- NOTE | 2016-03-29 23:24 | EKG ---
Test Reason : Blood Pressure : / mmHG Vent. Rate : 082 BPM Atrial Rate : 082 BPM P-R Int : 160 ms QRS Dur : 092 ms QT Int : 374 ms P-R-T Axes : 082 039 072 degrees QTc Int : 436 ms SINUS RHYTHM WITH OCCASIONAL PREMATURE VENTRICULAR COMPLEXES POSSIBLE LEFT ATRIAL ENLARGEMENT LEFT VENTRICULAR HYPERTROPHY ABNORMAL ECG WHEN COMPARED WITH ECG OF 07-MAR-2016 20:26, PREMATURE VENTRICULAR COMPLEXES ARE NOW PRESENT T WAVE VARIATION Confirmed by CHYNA LOPES, ANTONY ([id number]) on 03/29/2016 11:23:57 PM Referred By: Confirmed By:ANTONY CLEMENTE MD
[2016-03-30] MEDS: methylPREDNISolone NA SUCC 40 MG/1 ML VIAL IVPB SCH ×3 (01:17→21:06)
[2016-03-30] MEDS: LEVOTHYROXINE NA 88 MCG TABLET (FP) PO SCH (06:08)
[2016-03-30] MEDS: ALBUTEROL SO4 0.083% IH SOL 2.5 MG/3 ML VIAL.NEB. NEB SCH ×3 (06:20→22:15)
--- NOTE | 2016-03-30 09:33 | PN ---
Progress Note, Physician History of Present Illness: Dizziness and gait disturbance improved. - Current Medication List Current Medications: Active Medications Acetaminophen (Tylenol -) 650 mg PO Q6H PRN PRN Reason: FEVER OR PAIN Last Admin: 03/29/16 11:15 Dose: 650 mg Albuterol Sulfate (Ventolin 0.083% Nebulizer Soln -) 1 amp NEB TID [facility] Last Admin: 03/30/16 06:20 Dose: Not Given Albuterol/Ipratropium (Duoneb -) 1 amp NEB Q6H PRN PRN Reason: SHORTNESS OF BREATH Carvedilol (Coreg -) 3.125 mg PO BID [facility] Last Admin: 03/29/16 20:59 Dose: 3.125 mg Citalopram Hydrobromide (Celexa -) 40 mg PO DAILY [facility] Last Admin: 03/29/16 10:21 Dose: 40 mg Levofloxacin (Levaquin 250 Mg Premixed Ivpb -) 50 mls @ 100 mls/hr IVPB Q2D@ 1000 [facility] Stop: 04/03/16 10:29 Levothyroxine Sodium (Synthroid -) 88 mcg PO DAILY@0700 [facility] Last Admin: 03/30/16 06:08 Dose: 88 mcg Methylprednisolone Sodium Succinate (Solu-Medrol -) 40 mg IVPB Q8H-IV [facility] Last Admin: 03/30/16 01:17 Dose: 40 mg Ranitidine HCl (Zantac -) 150 mg PO DAILY [facility] Last Admin: 03/29/16 10:21 Dose: 150 mg - Objective Vital Signs: Vital Signs Temperature 98.3 F 03/30/16 06:00 Pulse Rate 88 03/30/16 06:00 Respiratory Rate 18 03/30/16 06:00 Blood Pressure 147/94 03/30/16 06:00 O2 Sat by Pulse Oximetry (%) 97 03/29/16 21:00 Constitutional: Yes: No Distress, Calm, Thin Neck: Yes: Supple Cardiovascular: Yes: Regular Rate and Rhythm Respiratory: Yes: Regular, Diminished, On Nasal O2 Gastrointestinal: Yes: Normal Bowel Sounds, Soft Edema: No Labs: INR, PTT INR 1.08 (0.82-1.09) 03/28/16 16:30 - ....Imaging EKG: Report Reviewed (NSR, PVC no pauses) Problem List - Problems (1) Dizziness Code(s): R42 - DIZZINESS AND GIDDINESS (2) Elevated troponin Code(s): R79.89 - OTHER SPECIFIED ABNORMAL FINDINGS OF BLOOD CHEMISTRY (3) Pneumonia Code(s): J18.9 - PNEUMONIA, UNSPECIFIED ORGANISM Qualifiers: Pneumonia type: due to unspecified organism Laterality: left Lung location: lower lobe of lung Qualified Code(s): J18.9 - Pneumonia, unspecified organism (4) ASHD (arteriosclerotic heart disease) Code(s): I25.10 - ATHSCL HEART DISEASE OF [place] CORONARY ARTERY W/O ANG PCTRS (5) Acute on chronic renal failure Code(s): N17.9 - ACUTE KIDNEY FAILURE, UNSPECIFIED N18.9 - CHRONIC KIDNEY DISEASE, UNSPECIFIED (6) HTN (hypertension) Code(s): I10 - ESSENTIAL (PRIMARY) HYPERTENSION Qualifiers: Hypertension type: essential hypertension Qualified Code(s): I10 - Essential (primary) hypertension (7) Hypothyroid Code(s): E03.9 - HYPOTHYROIDISM, UNSPECIFIED Qualifiers: Hypothyroidism type: unspecified Qualified Code(s): E03.9 - Hypothyroidism, unspecified (8) S/P coronary artery stent placement Code(s): Z95.5 - PRESENCE OF CORONARY ANGIOPLASTY IMPLANT AND GRAFT (9) Demand ischemia Code(s): I24.8 - OTHER FORMS OF ACUTE ISCHEMIC HEART DISEASE (10) Diastolic dysfunction Code(s): I51.9 - HEART DISEASE, UNSPECIFIED Assessment/Plan 1. Gait dysfunction, no LOC 2. Elevated troponin with underlying history of CAD s/p PCI/stent, angina pectoris - demand ischemia 3. HTN/HCVD 4. Hypercholesterolemia 5. Diastolic left ventricular dysfunction with class 1 NYHA classification LV failure 6. Aortic valve disease - moderate aortic valve stenosis 7. Hypothyroidism 8. History of lung CA post chemotherapy 9. History of breast CA post lumpectomy, chemotherapy 10. Acute on CKD 11. Anemia and history of post-polypectomy bleed PLAN: 1. Continue Carvedilol as tolerated (BP permitting). ACEI or ARB if BP permits once renal fxn recovers 2. Repeat echocardiography to reassess aortic valve disease 3. Trend troponins to document peak. Consider further cardiac work up including nuclear myocardial perfusion imaging when troponins are down vs. coronary angiography 4. Resume ASA 81 qd 5. Further evaluation for unsteady gait with MRI brain and c-spine, PT for gait training 6. Empiric abx for PNA
[2016-03-30 09:34] LABS: BASOPHIL 0.1 % (0-2.0); MCH 29.7 pg (25.7-33.7); MCHC 32.8 g/dl (32.0-36.0); MEAN CELL VOLUME 90.4 fl (80-96); PLATELET COUNT 269 K/MM3 (134-434); RDW 14.6 % (11.6-15.6); WHITE BLOOD COUNT 8.1 K/mm3 (4.0-10.0)
--- NOTE | 2016-03-30 09:40 | PN ---
Progress Note, Physician History of Present Illness: feels better - Current Medication List Current Medications: Active Medications Acetaminophen (Tylenol -) 650 mg PO Q6H PRN PRN Reason: FEVER OR PAIN Last Admin: 03/29/16 11:15 Dose: 650 mg Albuterol Sulfate (Ventolin 0.083% Nebulizer Soln -) 1 amp NEB TID [facility] Last Admin: 03/30/16 06:20 Dose: Not Given Albuterol/Ipratropium (Duoneb -) 1 amp NEB Q6H PRN PRN Reason: SHORTNESS OF BREATH Carvedilol (Coreg -) 3.125 mg PO BID [facility] Last Admin: 03/29/16 20:59 Dose: 3.125 mg Citalopram Hydrobromide (Celexa -) 40 mg PO DAILY [facility] Last Admin: 03/29/16 10:21 Dose: 40 mg Levofloxacin (Levaquin 250 Mg Premixed Ivpb -) 50 mls @ 100 mls/hr IVPB Q2D@ 1000 [facility] Stop: 04/03/16 10:29 Levothyroxine Sodium (Synthroid -) 88 mcg PO DAILY@0700 [facility] Last Admin: 03/30/16 06:08 Dose: 88 mcg Methylprednisolone Sodium Succinate (Solu-Medrol -) 40 mg IVPB Q8H-IV [facility] Last Admin: 03/30/16 01:17 Dose: 40 mg Ranitidine HCl (Zantac -) 150 mg PO DAILY [facility] Last Admin: 03/29/16 10:21 Dose: 150 mg - Objective Vital Signs: Vital Signs Temperature 98.3 F 03/30/16 06:00 Pulse Rate 88 03/30/16 06:00 Respiratory Rate 18 03/30/16 06:00 Blood Pressure 147/94 03/30/16 06:00 O2 Sat by Pulse Oximetry (%) 97 03/29/16 21:00 Cardiovascular: Yes: Murmur, S1, S2 Respiratory: Yes: Rales (at the bases) Gastrointestinal: Yes: Normal Bowel Sounds, Soft Labs: INR, PTT INR 1.08 (0.82-1.09) 03/28/16 16:30 Problem List - Problems (1) Elevated troponin Assessment/Plan: MONITOR CARDIO echo nl - Code(s): R79.89 - OTHER SPECIFIED ABNORMAL FINDINGS OF BLOOD CHEMISTRY (2) Hypoxia Assessment/Plan: O2 NEBS PULM Code(s): R09.02 - HYPOXEMIA (3) Status post fall Assessment/Plan: PT NEURO Code(s): Z91.89 - OTH PERSONAL RISK FACTORS, NOT ELSEWHERE CLASSIFIED (4) COPD (chronic obstructive pulmonary disease) Assessment/Plan: NEBS IV abx iv steroids Code(s): J44.9 - CHRONIC OBSTRUCTIVE PULMONARY DISEASE, UNSPECIFIED Qualifiers : COPD type: unspecified COPD Qualified Code(s): J44.9 - Chronic obstructive pulmonary disease, unspecified (5) Myoclonus Assessment/Plan: NEURO Code(s): G25.3 - MYOCLONUS
[2016-03-30] MEDS: CITALOPRAM HYDROBROMIDE 20 MG TABLET (FP) PO SCH (09:50)
[2016-03-30] MEDS: CARVEDILOL 3.125 MG TABLET (FP) PO SCH (09:50)
[2016-03-30] MEDS: RANITIDINE HCL 150 MG TABLET (FP) PO SCH (09:50)
[2016-03-30] MEDS: LEVOFLOXACIN 250 MG IVPB 50 ML IVPB SCH (09:50)
[2016-03-30] MEDS: CARVEDILOL 6.25 MG TABLET (FP) PO SCH ×2 (10:00→21:06)
[2016-03-30 10:03] LABS: ALBUMIN 2.5 g/dl (3.4-5.0); BILIRUBIN,TOTAL 0.2 mg/dL (0.2-1.0); CALCIUM 8.4 mg/dL (8.5-10.1); CREATININE 2.1 mg/dL (0.55-1.02)
[2016-03-30 10:05] LABS: TROPONIN I 0.13 ng/ml (0.00-0.05)
[2016-03-30] MEDS ORDERED: HEPARIN NA (PORCINE) 5,000 UNITS/ML 1ML VIAL ONE (10:10)
[2016-03-30] MEDS: ASPIRIN COATED 81 MG TABLET.EC PO SCH (10:26)
[2016-03-30] MEDS: HEPARIN NA (PORCINE) 5,000 UNITS/ML 1ML VIAL SQ SCH ×2 (10:29→21:06)
--- NOTE | 2016-03-30 11:09 | CONSULT ---
Consult - text type - Consultation Consultation Note: Renal Consult for FRANK on CKD Stage 4 This is a 76 year old woman with PMhx of CKD Stage 4 w/o significant proteinuria , Hypertension, CHF, Breast Ca s/p Lumpectomy and chemo, COPD on home O2, Anemia , Hx of GIB presented with hypotension and fall and found to have FRANK with BUN/ Cr of 51/2.8. Pt states that she had been feeling unwell for the last 4-5 days. BP has been up and down. Has had decreased oral intake. No change in urine output or color. No NSAID use. No flank pain, dysuria. Denies any rash. No ARCOS, chest pain, fever, chills, Abd pain, N/V/D. + PERKINS (baseline). PMhx: as above Allergies: NKDA Family hx: NC Social Hx: Former smoker, No ETOH ROS: as per HPI, all other perteinent ros negative Home Meds: Medication Instructions Recorded Carvedilol [Coreg -] 25 mg PO BID 11/12/15 Citalopram Hydrobromide 40 mg PO DAILY 11/12/15 [Citalopram HBr] Cholecalciferol (Vitamin D3) 1,000 unit PO DAILY 01/07/16 [Vitamin D -] Albuterol 0.083% Nebulizer Heena 1 amp NEB Q4H PRN #0 amp 01/26/16 [Ventolin 0.083% Nebulizer Soln -] Levothyroxine [Synthroid -] 88 mcg PO DAILY@0700 03/07/16 Azithromycin [Zithromax -] 250 mg PO UTDICT #6 tab 03/08/16 Vital Signs Temperature 98.3 F 03/30/16 06:00 Pulse Rate 88 03/30/16 06:00 Respiratory Rate 18 03/30/16 06:00 Blood Pressure 147/94 03/30/16 06:00 O2 Sat by Pulse Oximetry (%) 97 03/29/16 21:00 Intake & Output 03/27/16 03/28/16 03/29/16 03/30/16 23:59 23:59 23:59 23:59 Intake Total 700 320 Balance 700 320 Weight 104 lb 110 lb 6.4 oz Gen: NAD, awake and alert HEENT: NC/AT, No JVD, Neck Supple CVS: RRR, No M/R Lungs: + rales at left lung base, no wheeze Abd: soft NT/ND Ext: no edema, clubbing or cyanosis : no bladder distension Neuro: AAOx3, no focal defects CBC, BMP 03/30/16 09:05 03/30/16 09:05 Current Medications Acetaminophen (Tylenol -) 650 mg PO Q6H PRN PRN Reason: FEVER OR PAIN Last Admin: 03/29/16 11:15 Dose: 650 mg Albuterol Sulfate (Ventolin 0.083% Nebulizer Soln -) 1 amp NEB TID [facility] Last Admin: 03/30/16 06:20 Dose: Not Given Albuterol/Ipratropium (Duoneb -) 1 amp NEB Q6H PRN PRN Reason: SHORTNESS OF BREATH Aspirin (Ecotrin -) 81 mg PO DAILY [facility] Last Admin: 03/30/16 10:26 Dose: 81 mg Carvedilol (Coreg -) 6.25 mg PO BID [facility] Citalopram Hydrobromide (Celexa -) 40 mg PO DAILY [facility] Last Admin: 03/30/16 09:50 Dose: 40 mg Heparin Sodium (Porcine) (Heparin -) 5,000 unit SQ BID [facility] Last Admin: 03/30/16 10:29 Dose: 5,000 unit Levofloxacin (Levaquin 250 Mg Premixed Ivpb -) 50 mls @ 100 mls/hr IVPB Q2D@ 1000 [facility] Stop: 04/03/16 10:29 Last Admin: 03/30/16 09:50 Dose: 100 mls/hr Levothyroxine Sodium (Synthroid -) 88 mcg PO DAILY@0700 [facility] Last Admin: 03/30/16 06:08 Dose: 88 mcg Methylprednisolone Sodium Succinate (Solu-Medrol -) 40 mg IVPB Q8H-IV [facility] Last Admin: 03/30/16 09:50 Dose: 40 mg Ranitidine HCl (Zantac -) 150 mg PO DAILY [facility] Last Admin: 03/30/16 09:50 Dose: 150 mg A/p 76 year old woman with PMhx of CKD Stage 4 w/o significant proteinuria, Hypertension, CHF, Breast Ca s/p Lumpectomy and chemo, COPD on home O2, Anemia, Hx of GIB presented with hypotension and fall and found to have FRANK with BUN/Cr of 51/2.8 #Acute on Chronic Renal Insuffiency likely secondary to renal hypoperfusion in setting of hypotension and hypovolemia Baseline Cr is 1.8 to 2.2. 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 medication induced vs. hypovolemia) BP improved today Continue coreg as per cardiology Trend BP hold off addition of PREETI or ARB for now #hx of CHF no evidence of decompensation at this time #COPD/PERKINS/PNA Continue IV steroids and Abx as per primary Thank you Will follow Eric Mendoza DO .
--- NOTE | 2016-03-30 12:20 | PN ---
Progress Note, Physician History of Present Illness: pulmonary alert,oob-chair, feeling better,less dyspneic - Current Medication List Current Medications: Active Medications Acetaminophen (Tylenol -) 650 mg PO Q6H PRN PRN Reason: FEVER OR PAIN Last Admin: 03/29/16 11:15 Dose: 650 mg Albuterol Sulfate (Ventolin 0.083% Nebulizer Soln -) 1 amp NEB TID [facility] Last Admin: 03/30/16 06:20 Dose: Not Given Albuterol/Ipratropium (Duoneb -) 1 amp NEB Q6H PRN PRN Reason: SHORTNESS OF BREATH Aspirin (Ecotrin -) 81 mg PO DAILY [facility] Last Admin: 03/30/16 10:26 Dose: 81 mg Carvedilol (Coreg -) 6.25 mg PO BID [facility] Citalopram Hydrobromide (Celexa -) 40 mg PO DAILY [facility] Last Admin: 03/30/16 09:50 Dose: 40 mg Heparin Sodium (Porcine) (Heparin -) 5,000 unit SQ BID [facility] Last Admin: 03/30/16 10:29 Dose: 5,000 unit Levofloxacin (Levaquin 250 Mg Premixed Ivpb -) 50 mls @ 100 mls/hr IVPB Q2D@ 1000 [facility] Stop: 04/03/16 10:29 Last Admin: 03/30/16 09:50 Dose: 100 mls/hr Sodium Chloride (Normal Saline -) 1,000 mls @ 83 mls/hr IV ASDIR [facility] Stop: 03/31/16 05:14 Levothyroxine Sodium (Synthroid -) 88 mcg PO DAILY@0700 [facility] Last Admin: 03/30/16 06:08 Dose: 88 mcg Methylprednisolone Sodium Succinate (Solu-Medrol -) 40 mg IVPB Q8H-IV [facility] Last Admin: 03/30/16 09:50 Dose: 40 mg Ranitidine HCl (Zantac -) 150 mg PO DAILY [facility] Last Admin: 03/30/16 09:50 Dose: 150 mg - Objective Vital Signs: Vital Signs Temperature 98.3 F 03/30/16 06:00 Pulse Rate 88 03/30/16 06:00 Respiratory Rate 18 03/30/16 06:00 Blood Pressure 147/94 03/30/16 06:00 O2 Sat by Pulse Oximetry (%) 97 03/29/16 21:00 Constitutional: Yes: Well Nourished, Calm Eyes: Yes: WNL HENT: Yes: WNL Neck: Yes: WNL Cardiovascular: Yes: Regular Rate and Rhythm, S1, S2 Respiratory: Yes: Diminished (bibasilar crackles), Rales Gastrointestinal: Yes: Normal Bowel Sounds Extremities: Yes: WNL Edema: No Labs: CBC, BMP 03/30/16 09:05 03/30/16 09:05 INR, PTT INR 1.08 (0.82-1.09) 03/28/16 16:30 Assessment/Plan Problems (1) Dizziness Code(s): R42 - DIZZINESS AND GIDDINESS (2) Hypoxia Code(s): R09.02 - HYPOXEMIA (3) Pneumonia Code(s): J18.9 - PNEUMONIA, UNSPECIFIED ORGANISM Qualifiers: Pneumonia type: due to unspecified organism Laterality: left Lung location: lower lobe of lung Qualified Code(s): J18.9 - Pneumonia, unspecified organism (4) Renal insufficiency Code(s): N28.9 - DISORDER OF KIDNEY AND URETER, UNSPECIFIED (5) Status post fall Code(s): Z91.89 - OT PERSONAL RISK FACTORS, NOT ELSEWHERE CLASSIFIED (6) Weakness Code(s): R53.1 - WEAKNESS (7) ASHD (arteriosclerotic heart disease) Code(s): I25.10 - ATHSCL HEART DISEASE OF [place] CORONARY ARTERY W/O ANG PCTRS (8) Anemia Code(s): D64.9 - ANEMIA, UNSPECIFIED Qualifiers: Anemia type: due to other cause Other causes of anemia: chronic disease , kidney (9) Aortic stenosis Code(s): I35.0 - NONRHEUMATIC AORTIC (VALVE) STENOSIS Qualifiers: Cardiac valve disease etiology: nonrheumatic Qualified Code(s): I35.0 - Nonrheumatic aortic (valve) stenosis (10) Breast CA Code(s): C50.919 - MALIGNANT NEOPLASM OF UNSP SITE OF UNSPECIFIED FEMALE BREAST (11) CAD (coronary artery disease) Code(s): I25.10 - ATHSCL HEART DISEASE OF [place] CORONARY ARTERY W/O ANG PCTRS Qualifiers: Coronary Disease-Associated Artery/Lesion type: [place] artery [place] vs. transplanted heart: [place] heart Associated angina: without angina Qualified Code(s): I25.10 - Atherosclerotic heart disease of [place] coronary artery without angina pectoris (12) COPD (chronic obstructive pulmonary disease) Code(s): J44.9 - CHRONIC OBSTRUCTIVE PULMONARY DISEASE, UNSPECIFIED Qualifiers : COPD type: unspecified COPD Qualified Code(s): J44.9 - Chronic obstructive pulmonary disease, unspecified (13) Cough Code(s): R05 - COUGH (14) HTN (hypertension) Code(s): I10 - ESSENTIAL (PRIMARY) HYPERTENSION Qualifiers: Hypertension type: essential hypertension Qualified Code(s): I10 - Essential (primary) hypertension (15) S/P coronary artery stent placement Code(s): Z95.5 - PRESENCE OF CORONARY ANGIOPLASTY IMPLANT AND GRAFT Assessment/Plan PLAN: Levaquin Medrol taper BD TX standing and PRN O2 as needed to maintain saturation monitor lyes,renal function IVF DR ALVAREZ
[2016-03-30] MEDS: SODIUM CHLORIDE 1,000 ML IV SCH (16:47)
[2016-03-31] MEDS: SODIUM CHLORIDE 1,000 ML IV SCH (03:53)
[2016-03-31] MEDS: ALBUTEROL SO4 0.083% IH SOL 2.5 MG/3 ML VIAL.NEB. NEB SCH ×4 (06:05→21:50)
[2016-03-31] MEDS: LEVOTHYROXINE NA 88 MCG TABLET (FP) PO SCH (06:05)
--- NOTE | 2016-03-31 07:36 | PN ---
Progress Note, Physician Chief Complaint: CALM FEELS BETTER WANTS TO GO HOME - Current Medication List Current Medications: Active Medications Acetaminophen (Tylenol -) 650 mg PO Q6H PRN PRN Reason: FEVER OR PAIN Last Admin: 03/29/16 11:15 Dose: 650 mg Albuterol Sulfate (Ventolin 0.083% Nebulizer Soln -) 1 amp NEB TID [facility] Last Admin: 03/31/16 06:05 Dose: Not Given Albuterol/Ipratropium (Duoneb -) 1 amp NEB Q6H PRN PRN Reason: SHORTNESS OF BREATH Aspirin (Ecotrin -) 81 mg PO DAILY [facility] Last Admin: 03/30/16 10:26 Dose: 81 mg Carvedilol (Coreg -) 6.25 mg PO BID [facility] Last Admin: 03/30/16 21:06 Dose: 6.25 mg Citalopram Hydrobromide (Celexa -) 40 mg PO DAILY [facility] Last Admin: 03/30/16 09:50 Dose: 40 mg Heparin Sodium (Porcine) (Heparin -) 5,000 unit SQ BID [facility] Last Admin: 03/30/16 21:06 Dose: 5,000 unit Levofloxacin (Levaquin 250 Mg Premixed Ivpb -) 50 mls @ 100 mls/hr IVPB Q2D@ 1000 [facility] Stop: 04/03/16 10:29 Last Admin: 03/30/16 09:50 Dose: 100 mls/hr Levothyroxine Sodium (Synthroid -) 88 mcg PO DAILY@0700 [facility] Last Admin: 03/31/16 06:05 Dose: 88 mcg Methylprednisolone Sodium Succinate (Solu-Medrol -) 40 mg IVPB BID [facility] Last Admin: 03/30/16 21:06 Dose: 40 mg Ranitidine HCl (Zantac -) 150 mg PO DAILY [facility] Last Admin: 03/30/16 09:50 Dose: 150 mg - Objective Vital Signs: Vital Signs Temperature 97.5 F L 03/31/16 07:26 Pulse Rate 72 03/31/16 07:26 Respiratory Rate 20 03/31/16 07:26 Blood Pressure 179/86 03/31/16 07:26 O2 Sat by Pulse Oximetry (%) 96 03/30/16 21:00 Constitutional: Yes: Calm Cardiovascular: Yes: Regular Rate and Rhythm, S1, S2 Respiratory: Yes: CTA Bilaterally Gastrointestinal: Yes: Normal Bowel Sounds, Soft Edema: No Labs: CBC, BMP 03/30/16 09:05 03/30/16 09:05 INR, PTT INR 1.08 (0.82-1.09) 03/28/16 16:30 Problem List - Problems (1) COPD (chronic obstructive pulmonary disease) Code(s): J44.9 - CHRONIC OBSTRUCTIVE PULMONARY DISEASE, UNSPECIFIED Qualifiers : COPD type: unspecified COPD Qualified Code(s): J44.9 - Chronic obstructive pulmonary disease, unspecified (2) Elevated troponin Code(s): R79.89 - OTHER SPECIFIED ABNORMAL FINDINGS OF BLOOD CHEMISTRY (3) Hypoxia Code(s): R09.02 - HYPOXEMIA (4) Myoclonus Code(s): G25.3 - MYOCLONUS (5) Status post fall Code(s): Z91.89 - OT PERSONAL RISK FACTORS, NOT ELSEWHERE CLASSIFIED Assessment/Plan (1) Elevated troponin Assessment/Plan: TRENDING DOWN MONITOR BP Cr AT BASELINE -> ADD ACEi CARDIO ON CASE echo nl - Code(s): R79.89 - OTHER SPECIFIED ABNORMAL FINDINGS OF BLOOD CHEMISTRY (2) Hypoxia Assessment/Plan: O2 NEBS PULM ON CASE Code(s): R09.02 - HYPOXEMIA (3) Status post fall Assessment/Plan: PT NEURO ON CASE F/U W/U Code(s): Z91.89 - OT PERSONAL RISK FACTORS, NOT ELSEWHERE CLASSIFIED (4) COPD (chronic obstructive pulmonary disease) Assessment/Plan: NEBS PULM ON CASE IV abx iv steroids Code(s): J44.9 - CHRONIC OBSTRUCTIVE PULMONARY DISEASE, UNSPECIFIED Qualifiers : COPD type: unspecified COPD Qualified Code(s): J44.9 - Chronic obstructive pulmonary disease, unspecified (5) Myoclonus Assessment/Plan: NEURO ON CASE Code(s): G25.3 - MYOCLONUS [facility]
[2016-03-31 08:21] LABS: BASOPHIL 0.1 % (0-2.0); MCH 29.4 pg (25.7-33.7); MCHC 32.6 g/dl (32.0-36.0); MEAN CELL VOLUME 90.1 fl (80-96); MEAN PLT VOLUME 7.9 fl (7.5-11.1); NEUTROPHILS 88.7 % (42.8-82.8); PLATELET COUNT 345 K/MM3 (134-434); RDW 14.4 % (11.6-15.6); WHITE BLOOD COUNT 12.6 K/mm3 (4.0-10.0)
[2016-03-31 08:48] LABS: ALBUMIN 2.5 g/dl (3.4-5.0); CALCIUM 8.7 mg/dL (8.5-10.1); MAGNESIUM 2.4 mg/dL (1.8-2.4)
[2016-03-31 08:51] LABS: BILIRUBIN,TOTAL 0.2 mg/dL (0.2-1.0); CREATININE 1.8 mg/dL (0.55-1.02); PHOSPHOROUS 3.6 mg/dL (2.5-4.9)
[2016-03-31] MEDS: LISINOPRIL 10 MG TABLET (FP) PO SCH (09:30)
[2016-03-31] MEDS: CARVEDILOL 6.25 MG TABLET (FP) PO SCH ×2 (09:31→22:18)
[2016-03-31] MEDS: CITALOPRAM HYDROBROMIDE 20 MG TABLET (FP) PO SCH (09:31)
[2016-03-31] MEDS: ASPIRIN COATED 81 MG TABLET.EC PO SCH (09:31)
[2016-03-31] MEDS: RANITIDINE HCL 150 MG TABLET (FP) PO SCH (09:31)
[2016-03-31] MEDS: methylPREDNISolone NA SUCC 40 MG/1 ML VIAL IVPB SCH (09:32)
[2016-03-31] MEDS: HEPARIN NA (PORCINE) 5,000 UNITS/ML 1ML VIAL SQ SCH ×2 (09:32→22:18)
--- NOTE | 2016-03-31 09:36 | PN ---
Progress Note, Physician Chief Complaint: Not in distress History of Present Illness: Patient was seen and examined. Awake and alert. Chart was reviewed Denies chest pain, SOB or palpitations - Current Medication List Current Medications: Active Medications Acetaminophen (Tylenol -) 650 mg PO Q6H PRN PRN Reason: FEVER OR PAIN Last Admin: 03/29/16 11:15 Dose: 650 mg Albuterol Sulfate (Ventolin 0.083% Nebulizer Soln -) 1 amp NEB TID [facility] Last Admin: 03/31/16 06:05 Dose: Not Given Albuterol/Ipratropium (Duoneb -) 1 amp NEB Q6H PRN PRN Reason: SHORTNESS OF BREATH Aspirin (Ecotrin -) 81 mg PO DAILY [facility] Last Admin: 03/30/16 10:26 Dose: 81 mg Carvedilol (Coreg -) 6.25 mg PO BID [facility] Last Admin: 03/30/16 21:06 Dose: 6.25 mg Citalopram Hydrobromide (Celexa -) 40 mg PO DAILY [facility] Last Admin: 03/30/16 09:50 Dose: 40 mg Heparin Sodium (Porcine) (Heparin -) 5,000 unit SQ BID [facility] Last Admin: 03/30/16 21:06 Dose: 5,000 unit Levofloxacin (Levaquin 250 Mg Premixed Ivpb -) 50 mls @ 100 mls/hr IVPB Q2D@ 1000 [facility] Stop: 04/03/16 10:29 Last Admin: 03/30/16 09:50 Dose: 100 mls/hr Levothyroxine Sodium (Synthroid -) 88 mcg PO DAILY@0700 [facility] Last Admin: 03/31/16 06:05 Dose: 88 mcg Lisinopril (Prinivil) 10 mg PO DAILY [facility] Methylprednisolone Sodium Succinate (Solu-Medrol -) 40 mg IVPB BID [facility] Last Admin: 03/30/16 21:06 Dose: 40 mg Ranitidine HCl (Zantac -) 150 mg PO DAILY [facility] Last Admin: 03/30/16 09:50 Dose: 150 mg - Objective Vital Signs: Vital Signs Temperature 97.5 F L 03/31/16 07:26 Pulse Rate 72 03/31/16 07:26 Respiratory Rate 20 03/31/16 07:26 Blood Pressure 179/86 03/31/16 07:26 O2 Sat by Pulse Oximetry (%) 96 02/01/17 21:00 Neck: Yes: Supple Cardiovascular: Yes: Regular Rate and Rhythm, S1, S2 Respiratory: Yes: Diminished Gastrointestinal: Yes: Normal Bowel Sounds, Soft. No: Tenderness Edema: No Additional Findings/Remarks: - Review of Systems Constitutional: reports: Weakness. denies: Chills, Fever Cardiovascular: denies: Chest Pain, Palpitations, Shortness of Breath Respiratory: denies: Cough, Hemoptysis, Orthopnea, PND, SOB, SOB on Exertion Gastrointestinal: denies: Abdominal Pain, Constipation, Diarrhea, Melena, Nausea , Rectal Bleeding, Vomiting Genitourinary: denies: Dysuria Neurological: reports: Dizziness, Unsteady Gait, Weakness. denies: Headache, Seizure, Syncope Labs: CBC, BMP 03/31/16 07:45 03/31/16 07:45 Problem List - Problems (1) Elevated troponin Code(s): R79.89 - OTHER SPECIFIED ABNORMAL FINDINGS OF BLOOD CHEMISTRY (2) Status post fall Code(s): Z91.89 - OTH PERSONAL RISK FACTORS, NOT ELSEWHERE CLASSIFIED (3) Weakness Code(s): R53.1 - WEAKNESS (4) ASHD (arteriosclerotic heart disease) Code(s): I25.10 - ATHSCL HEART DISEASE OF [place] CORONARY ARTERY W/O ANG PCTRS (5) Anemia Code(s): D64.9 - ANEMIA, UNSPECIFIED Qualifiers: Anemia type: due to other cause Other causes of anemia: chronic disease , kidney (6) Aortic stenosis Code(s): I35.0 - NONRHEUMATIC AORTIC (VALVE) STENOSIS Qualifiers: Cardiac valve disease etiology: nonrheumatic Qualified Code(s): I35.0 - Nonrheumatic aortic (valve) stenosis (7) COPD (chronic obstructive pulmonary disease) Code(s): J44.9 - CHRONIC OBSTRUCTIVE PULMONARY DISEASE, UNSPECIFIED Qualifiers : COPD type: unspecified COPD Qualified Code(s): J44.9 - Chronic obstructive pulmonary disease, unspecified (8) Dizziness Code(s): R42 - DIZZINESS AND GIDDINESS (9) HTN (hypertension) Code(s): I10 - ESSENTIAL (PRIMARY) HYPERTENSION Qualifiers: Hypertension type: essential hypertension Qualified Code(s): I10 - Essential (primary) hypertension (10) Hypothyroid Code(s): E03.9 - HYPOTHYROIDISM, UNSPECIFIED Qualifiers: Hypothyroidism type: unspecified Qualified Code(s): E03.9 - Hypothyroidism, unspecified (11) Lung cancer Code(s): C34.90 - MALIGNANT NEOPLASM OF UNSP PART OF UNSP BRONCHUS OR LUNG Qualifiers: Lung location: unspecified part of lung (12) S/P coronary artery stent placement Code(s): Z95.5 - PRESENCE OF CORONARY ANGIOPLASTY IMPLANT AND GRAFT Assessment/Plan 1. Dizziness and fall with unsteady gait, no LOC 2. Elevated troponin with underlying history of CAD s/p PCI/stent, angina pectoris - demand ischemia 3. HTN/HCVD 4. Hypercholesterolemia 5. Diastolic left ventricular dysfunction with class 1 NYHA classification LV failure 6. Aortic valve disease - moderate aortic valve stenosis 7. Hypothyroidism 8. History of lung CA post chemotherapy 9. History of breast CA post lumpectomy, chemotherapy 10. CKD 11. Anemia and history of GI bleed PLAN: 1. Continue Carvedilol as tolerated (BP permitting). Continue Lisinopril 2. Transthoracic echocardiography reveals at least moderate or moderate to severe aortic valve stenosis with ERNESTO 0.8 cm 2 and mean gradient of 24 mmHg 3. Trend troponins, currently trending down to 0.13. Consider further cardiac work up including nuclear myocardial perfusion imaging vs. coronary angiography 4. Continue ASA 5. Neuro input noted Further plans are to follow Michael Steward MD
[2016-03-31] MEDS ORDERED: WATER IVPB ONE (10:15)
[2016-03-31] MEDS ORDERED: DEXTROSE 5% IVPB ONE (10:15)
[2016-03-31] MEDS ORDERED: DIPYRIDAMOLE STRESS TEST IVPB ONE (10:15)
--- NOTE | 2016-03-31 11:02 | PN ---
Progress Note (short form) - Note Progress Note: Renal Follow up for FRANK on CKD Pt seen and examined at the bedside no acute complaints cough is improved no chest pain or sob off IVF Vital Signs Temperature 97.5 F L 03/31/16 07:26 Pulse Rate 72 03/31/16 07:26 Respiratory Rate 20 03/31/16 07:26 Blood Pressure 179/86 03/31/16 07:26 O2 Sat by Pulse Oximetry (%) 96 03/30/16 21:00 Intake & Output 03/28/16 03/29/16 03/30/16 03/31/16 23:59 23:59 23:59 23:59 Intake Total 700 920 581 Output Total 200 Balance 700 720 581 Weight 104 lb 110 lb 6.4 oz Gen: NAD, awake and alert CVS: RRR, No M/R Lungs: + rales at left lung base Abd: soft NT/ND Ext: no edema, clubbing or cyanosis CBC, BMP 03/31/16 07:45 03/31/16 07:45 Current Medications Acetaminophen (Tylenol -) 650 mg PO Q6H PRN PRN Reason: FEVER OR PAIN Last Admin: 03/29/16 11:15 Dose: 650 mg Albuterol Sulfate (Ventolin 0.083% Nebulizer Soln -) 1 amp NEB TID [facility] Last Admin: 03/31/16 06:05 Dose: Not Given Albuterol/Ipratropium (Duoneb -) 1 amp NEB Q6H PRN PRN Reason: SHORTNESS OF BREATH Aspirin (Ecotrin -) 81 mg PO DAILY [facility] Last Admin: 03/31/16 09:31 Dose: 81 mg Carvedilol (Coreg -) 6.25 mg PO BID [facility] Last Admin: 03/31/16 09:31 Dose: 6.25 mg Citalopram Hydrobromide (Celexa -) 40 mg PO DAILY [facility] Last Admin: 03/31/16 09:31 Dose: 40 mg Heparin Sodium (Porcine) (Heparin -) 5,000 unit SQ BID [facility] Last Admin: 03/31/16 09:32 Dose: 5,000 unit Levofloxacin (Levaquin 250 Mg Premixed Ivpb -) 50 mls @ 100 mls/hr IVPB Q2D@ 1000 [facility] Stop: 04/03/16 10:29 Last Admin: 03/30/16 09:50 Dose: 100 mls/hr Levothyroxine Sodium (Synthroid -) 88 mcg PO DAILY@0700 [facility] Last Admin: 03/31/16 06:05 Dose: 88 mcg Lisinopril (Prinivil) 10 mg PO DAILY [facility] Last Admin: 03/31/16 09:30 Dose: 10 mg Methylprednisolone Sodium Succinate (Solu-Medrol -) 40 mg IVPB BID [facility] Last Admin: 03/31/16 09:32 Dose: 40 mg Ranitidine HCl (Zantac -) 150 mg PO DAILY [facility] Last Admin: 03/31/16 09:31 Dose: 150 mg A/p 76 year old woman with PMhx of CKD Stage 4 w/o significant proteinuria, Hypertension, CHF, Breast Ca s/p Lumpectomy and chemo, COPD on home O2, Anemia, Hx of GIB presented with hypotension and fall and found to have FRANK with BUN/Cr of 51/2.8 #Acute on Chronic Renal Insuffiency likely secondary to renal hypoperfusion in setting of hypotension and hypovolemia Renal function now improved to baseline can maintain off IVF at this time UPCR shows subnephrotic proteinuria SPEP and [place]/Lamda ratio is pending Dose all meds for Cr Cl less then 30 Started on ACEi as per cardiology, trend BUN/Cr and K #Hypotension (? medication induced vs. hypovolemia) BP elevated today restarted Lisinopril in addition to coreg today Goal BP < 140/90 #hx of CHF no evidence of decompensation at this time #COPD/PERKINS/PNA Continue IV steroids and Abx as per primary Eric Mendoza DO .
--- NOTE | 2016-03-31 12:17 | PN ---
Progress Note (short form) - Note Progress Note: Overall breathing feels better. Noted redness of the face -> (?) attributed to IV Medrol. It does not itch or burn. CXR: No significant change on LLL infiltrate Intake & Output 03/28/16 03/29/16 03/30/16 03/31/16 23:59 23:59 23:59 23:59 Intake Total 700 920 581 Output Total 200 Balance 700 720 581 Weight 104 lb 110 lb 6.4 oz Last Vital Signs Temp Pulse Resp BP Pulse Ox 97.5 F L 77 20 161/82 96 03/31/16 10:00 03/31/16 10:00 03/31/16 10:00 03/31/16 10:00 03/30/16 21:00 Active Medications Acetaminophen (Tylenol -) 650 mg PO Q6H PRN PRN Reason: FEVER OR PAIN Last Admin: 03/29/16 11:15 Dose: 650 mg Albuterol Sulfate (Ventolin 0.083% Nebulizer Soln -) 1 amp NEB TID [facility] Last Admin: 03/31/16 06:05 Dose: Not Given Albuterol/Ipratropium (Duoneb -) 1 amp NEB Q6H PRN PRN Reason: SHORTNESS OF BREATH Aspirin (Ecotrin -) 81 mg PO DAILY [facility] Last Admin: 03/31/16 09:31 Dose: 81 mg Carvedilol (Coreg -) 6.25 mg PO BID [facility] Last Admin: 03/31/16 09:31 Dose: 6.25 mg Citalopram Hydrobromide (Celexa -) 40 mg PO DAILY [facility] Last Admin: 03/31/16 09:31 Dose: 40 mg Heparin Sodium (Porcine) (Heparin -) 5,000 unit SQ BID [facility] Last Admin: 03/31/16 09:32 Dose: 5,000 unit Levofloxacin (Levaquin 250 Mg Premixed Ivpb -) 50 mls @ 100 mls/hr IVPB Q2D@ 1000 [facility] Stop: 04/03/16 10:29 Last Admin: 03/30/16 09:50 Dose: 100 mls/hr Levothyroxine Sodium (Synthroid -) 88 mcg PO DAILY@0700 [facility] Last Admin: 03/31/16 06:05 Dose: 88 mcg Lisinopril (Prinivil) 10 mg PO DAILY [facility] Last Admin: 03/31/16 09:30 Dose: 10 mg Methylprednisolone Sodium Succinate (Solu-Medrol -) 40 mg IVPB BID [facility] Last Admin: 03/31/16 09:32 Dose: 40 mg Ranitidine HCl (Zantac -) 150 mg PO DAILY [facility] Last Admin: 03/31/16 09:31 Dose: 150 mg Constitutional: Yes: No Distress, Thin Eyes: Yes: Conjunctiva Clear, EOM Intact HENT: Yes: (+) facial redness Neck: Yes: Supple, Trachea Midline Cardiovascular: Yes: Regular Rate and Rhythm Respiratory: Yes: Cough, On Nasal O2, Rhonchi No: Accessory Muscle Use, Rales, Stridor, Wheeze Gastrointestinal: Yes: Normal Bowel Sounds, Soft ...Rectal Exam: Yes: Deferred Renal/: Yes: WNL Musculoskeletal: Yes: WNL Extremities: Yes: WNL Edema: No Peripheral Pulses WNL: Yes Integumentary: Yes: WNL Neurological: Yes: Alert, Oriented ...Motor Strength: WNL Psychiatric: Yes: Alert, Oriented Laboratory Results - last 24 hr 03/30/16 03/30/16 03/31/16 19:00 19:00 07:45 WBC RBC Hgb Hct MCV MCHC RDW Plt Count MPV Neutrophils % Lymphocytes % Monocytes % Eosinophils % Basophils % Sodium 143 Potassium 4.1 Chloride 109 H Carbon Dioxide 22 Anion Gap 12 BUN 57 H Creatinine 1.8 H Creat Clearance w eGFR 27.36 Random Glucose 117 H D Calcium 8.7 Phosphorus 3.6 D Magnesium 2.4 Total Bilirubin 0.2 AST 18 ALT 23 D Alkaline Phosphatase 70 Total Protein 7.0 Albumin 2.5 L U Random Total Protein 56 H Urine Creatinine 68.9 03/31/16 07:45 WBC 12.6 H D RBC 3.70 Hgb 10.9 Hct 33.3 MCV 90.1 MCHC 32.6 RDW 14.4 Plt Count 345 D MPV 7.9 Neutrophils % 88.7 H Lymphocytes % 8.6 Monocytes % 2.6 L D Eosinophils % 0.0 Basophils % 0.1 Sodium Potassium Chloride Carbon Dioxide Anion Gap BUN Creatinine Creat Clearance w eGFR Random Glucose Calcium Phosphorus Magnesium Total Bilirubin AST ALT Alkaline Phosphatase Total Protein Albumin U Random Total Protein Urine Creatinine Problem List - Problems (1) Dizziness Code(s): R42 - DIZZINESS AND GIDDINESS (2) Hypoxia Code(s): R09.02 - HYPOXEMIA (3) Pneumonia Code(s): J18.9 - PNEUMONIA, UNSPECIFIED ORGANISM Qualifiers: Pneumonia type: due to unspecified organism Laterality: left Lung location: lower lobe of lung Qualified Code(s): J18.9 - Pneumonia, unspecified organism (4) Renal insufficiency Code(s): N28.9 - DISORDER OF KIDNEY AND URETER, UNSPECIFIED (5) Status post fall Code(s): Z91.89 - OT PERSONAL RISK FACTORS, NOT ELSEWHERE CLASSIFIED (6) Weakness Code(s): R53.1 - WEAKNESS (7) ASHD (arteriosclerotic heart disease) Code(s): I25.10 - ATHSCL HEART DISEASE OF [place] CORONARY ARTERY W/O ANG PCTRS (8) Anemia Code(s): D64.9 - ANEMIA, UNSPECIFIED Qualifiers: Anemia type: due to other cause Other causes of anemia: chronic disease , kidney (9) Aortic stenosis Code(s): I35.0 - NONRHEUMATIC AORTIC (VALVE) STENOSIS Qualifiers: Cardiac valve disease etiology: nonrheumatic Qualified Code(s): I35.0 - Nonrheumatic aortic (valve) stenosis (10) Breast CA Code(s): C50.919 - MALIGNANT NEOPLASM OF UNSP SITE OF UNSPECIFIED FEMALE BREAST (11) CAD (coronary artery disease) Code(s): I25.10 - ATHSCL HEART DISEASE OF [place] CORONARY ARTERY W/O ANG PCTRS Qualifiers: Coronary Disease-Associated Artery/Lesion type: [place] artery [place] vs. transplanted heart: [place] heart Associated angina: without angina Qualified Code(s): I25.10 - Atherosclerotic heart disease of [place] coronary artery without angina pectoris (12) COPD (chronic obstructive pulmonary disease) Code(s): J44.9 - CHRONIC OBSTRUCTIVE PULMONARY DISEASE, UNSPECIFIED Qualifiers : COPD type: unspecified COPD Qualified Code(s): J44.9 - Chronic obstructive pulmonary disease, unspecified (13) Cough Code(s): R05 - COUGH (14) HTN (hypertension) Code(s): I10 - ESSENTIAL (PRIMARY) HYPERTENSION Qualifiers: Hypertension type: essential hypertension Qualified Code(s): I10 - Essential (primary) hypertension (15) S/P coronary artery stent placement Code(s): Z95.5 - PRESENCE OF CORONARY ANGIOPLASTY IMPLANT AND GRAFT Assessment/Plan Levaquin Change Medrol to prednisone BD TX standing and PRN O2 as needed to maintain saturation VTE prophylaxis Dr Henriquez Problem List - Problems (1) Dizziness Code(s): R42 - DIZZINESS AND GIDDINESS (2) Hypoxia Code(s): R09.02 - HYPOXEMIA (3) Pneumonia Code(s): J18.9 - PNEUMONIA, UNSPECIFIED ORGANISM Qualifiers: Pneumonia type: due to unspecified organism Laterality: left Lung location: lower lobe of lung Qualified Code(s): J18.9 - Pneumonia, unspecified organism (4) Renal insufficiency Code(s): N28.9 - DISORDER OF KIDNEY AND URETER, UNSPECIFIED (5) Status post fall Code(s): Z91.89 - OT PERSONAL RISK FACTORS, NOT ELSEWHERE CLASSIFIED (6) Weakness Code(s): R53.1 - WEAKNESS (7) ASHD (arteriosclerotic heart disease) Code(s): I25.10 - ATHSCL HEART DISEASE OF [place] CORONARY ARTERY W/O ANG PCTRS (8) Anemia Code(s): D64.9 - ANEMIA, UNSPECIFIED Qualifiers: Anemia type: due to other cause Other causes of anemia: chronic disease , kidney (9) Aortic stenosis Code(s): I35.0 - NONRHEUMATIC AORTIC (VALVE) STENOSIS Qualifiers: Cardiac valve disease etiology: nonrheumatic Qualified Code(s): I35.0 - Nonrheumatic aortic (valve) stenosis (10) Breast CA Code(s): C50.919 - MALIGNANT NEOPLASM OF UNSP SITE OF UNSPECIFIED FEMALE BREAST (11) CAD (coronary artery disease) Code(s): I25.10 - ATHSCL HEART DISEASE OF [place] CORONARY ARTERY W/O ANG PCTRS Qualifiers: Coronary Disease-Associated Artery/Lesion type: [place] artery [place] vs. transplanted heart: [place] heart Associated angina: without angina Qualified Code(s): I25.10 - Atherosclerotic heart disease of [place] coronary artery without angina pectoris (12) COPD (chronic obstructive pulmonary disease) Code(s): J44.9 - CHRONIC OBSTRUCTIVE PULMONARY DISEASE, UNSPECIFIED Qualifiers : COPD type: unspecified COPD Qualified Code(s): J44.9 - Chronic obstructive pulmonary disease, unspecified (13) Cough Code(s): R05 - COUGH (14) HTN (hypertension) Code(s): I10 - ESSENTIAL (PRIMARY) HYPERTENSION Qualifiers: Hypertension type: essential hypertension Qualified Code(s): I10 - Essential (primary) hypertension (15) S/P coronary artery stent placement Code(s): Z95.5 - PRESENCE OF CORONARY ANGIOPLASTY IMPLANT AND GRAFT
[2016-03-31] MEDS: ACETAMINOPHEN 325 MG TABLET (FP) PO PRN (17:13)
[2016-04-01] MEDS ORDERED: LISINOPRIL 10 MG TABLET (FP) PO ONE (04:15)
[2016-04-01] MEDS: ACETAMINOPHEN 325 MG TABLET (FP) PO PRN (04:22)
[2016-04-01] MEDS: LEVOTHYROXINE NA 88 MCG TABLET (FP) PO SCH (06:18)
[2016-04-01] MEDS: ALBUTEROL SO4 0.083% IH SOL 2.5 MG/3 ML VIAL.NEB. NEB SCH ×2 (06:20→14:22)
[2016-04-01] MEDS ORDERED: CARVEDILOL 6.25 MG TABLET (FP) PO SCH (06:46)
--- NOTE | 2016-04-01 06:46 | PN ---
Progress Note, Physician Chief Complaint: FOR STRESS TEST TODAY - Current Medication List Current Medications: Active Medications Acetaminophen (Tylenol -) 650 mg PO Q6H PRN PRN Reason: FEVER OR PAIN Last Admin: 04/01/16 04:22 Dose: 650 mg Albuterol Sulfate (Ventolin 0.083% Nebulizer Soln -) 1 amp NEB TID [facility] Last Admin: 03/31/16 21:50 Dose: Not Given Albuterol/Ipratropium (Duoneb -) 1 amp NEB Q6H PRN PRN Reason: SHORTNESS OF BREATH Aspirin (Ecotrin -) 81 mg PO DAILY [facility] Last Admin: 03/31/16 09:31 Dose: 81 mg Carvedilol (Coreg -) 6.25 mg PO BID [facility] Last Admin: 03/31/16 22:18 Dose: 6.25 mg Citalopram Hydrobromide (Celexa -) 40 mg PO DAILY [facility] Last Admin: 03/31/16 09:31 Dose: 40 mg Heparin Sodium (Porcine) (Heparin -) 5,000 unit SQ BID [facility] Last Admin: 03/31/16 22:18 Dose: 5,000 unit Levofloxacin (Levaquin 250 Mg Premixed Ivpb -) 50 mls @ 100 mls/hr IVPB Q2D@ 1000 [facility] Stop: 04/03/16 10:29 Last Admin: 03/30/16 09:50 Dose: 100 mls/hr Levothyroxine Sodium (Synthroid -) 88 mcg PO DAILY@0700 [facility] Last Admin: 04/01/16 06:18 Dose: 88 mcg Lisinopril (Prinivil) 10 mg PO DAILY [facility] Last Admin: 03/31/16 09:30 Dose: 10 mg Prednisone (Deltasone -) 40 mg PO DAILY [facility] Ranitidine HCl (Zantac -) 150 mg PO DAILY [facility] Last Admin: 03/31/16 09:31 Dose: 150 mg - Objective Vital Signs: Vital Signs Temperature 97.2 F L 03/31/16 21:00 Pulse Rate 70 03/31/16 21:00 Respiratory Rate 16 03/31/16 21:00 Blood Pressure 188/110 04/01/16 04:20 O2 Sat by Pulse Oximetry (%) 93 L 03/31/16 21:00 Cardiovascular: Yes: Regular Rate and Rhythm, S1, S2 Respiratory: Yes: CTA Bilaterally Gastrointestinal: Yes: Normal Bowel Sounds, Soft Edema: No Labs: CBC, BMP 03/31/16 07:45 03/31/16 07:45 INR, PTT INR 1.08 (0.82-1.09) 03/28/16 16:30 Problem List - Problems (1) COPD (chronic obstructive pulmonary disease) Code(s): J44.9 - CHRONIC OBSTRUCTIVE PULMONARY DISEASE, UNSPECIFIED Qualifiers : COPD type: unspecified COPD Qualified Code(s): J44.9 - Chronic obstructive pulmonary disease, unspecified (2) Elevated troponin Code(s): R79.89 - OTHER SPECIFIED ABNORMAL FINDINGS OF BLOOD CHEMISTRY (3) Hypoxia Code(s): R09.02 - HYPOXEMIA (4) Myoclonus Code(s): G25.3 - MYOCLONUS (5) Status post fall Code(s): Z91.89 - OT PERSONAL RISK FACTORS, NOT ELSEWHERE CLASSIFIED Assessment/Plan (1) Elevated troponin Assessment/Plan: Cr AT BASELINE -> ADDED ACEi CARDIO ON CASE echo nl BP REMAINS HIGH -> BB INCed Code(s): R79.89 - OTHER SPECIFIED ABNORMAL FINDINGS OF BLOOD CHEMISTRY (2) Hypoxia Assessment/Plan: O2 NEBS PULM ON CASE Code(s): R09.02 - HYPOXEMIA (3) Status post fall Assessment/Plan: PT NEURO ON CASE F/U W/U Code(s): Z91.89 - OT PERSONAL RISK FACTORS, NOT ELSEWHERE CLASSIFIED (4) COPD (chronic obstructive pulmonary disease) Assessment/Plan: NEBS PULM ON CASE IV abx po steroids Code(s): J44.9 - CHRONIC OBSTRUCTIVE PULMONARY DISEASE, UNSPECIFIED Qualifiers : COPD type: unspecified COPD Qualified Code(s): J44.9 - Chronic obstructive pulmonary disease, unspecified (5) Myoclonus Assessment/Plan: NEURO ON CASE Code(s): G25.3 - MYOCLONUS [employer]
[2016-04-01 08:44] LABS: BASOPHIL 0.5 % (0-2.0); MEAN CELL VOLUME 90.4 fl (80-96); MEAN PLT VOLUME 7.5 fl (7.5-11.1); NEUTROPHILS 78.2 % (42.8-82.8); PLATELET COUNT 353 K/MM3 (134-434); RDW 14.7 % (11.6-15.6); WHITE BLOOD COUNT 13.6 K/mm3 (4.0-10.0)
[2016-04-01 09:06] LABS: ALBUMIN 2.5 g/dl (3.4-5.0); BILIRUBIN,TOTAL 0.3 mg/dL (0.2-1.0); CALCIUM 8.9 mg/dL (8.5-10.1); CREATININE 1.7 mg/dL (0.55-1.02)
[2016-04-01 09:09] LABS: TROPONIN I 0.08 ng/ml (0.00-0.05)
[2016-04-01 09:11] LABS: MAGNESIUM 2.3 mg/dL (1.8-2.4)
[2016-04-01] MEDS ORDERED: DIPYRIDAMOLE 50 MG/10 ML VIAL IVPB ONE (09:46)
[2016-04-01] MEDS ORDERED: predniSONE 20 MG TABLET (UD) PO SCH (10:00)
--- NOTE | 2016-04-01 10:11 | PN ---
Progress Note (short form) - Note Progress Note: S: Active Medications Generic Name Dose Route Start Last Admin Trade Name Freq PRN Reason Stop Dose Admin Acetaminophen 650 mg 03/28/16 18:16 04/01/16 04:22 Tylenol - PO 650 mg Q6H PRN Administration FEVER OR PAIN Albuterol Sulfate 1 amp 03/29/16 22:00 04/01/16 06:20 Ventolin 0.083% Nebulizer Soln - NEB 1 amp TID [facility] Administration Albuterol/Ipratropium 1 amp 03/28/16 18:16 Duoneb - NEB Q6H PRN SHORTNESS OF BREATH Aspirin 81 mg 03/30/16 10:30 03/31/16 09:31 Ecotrin - PO 81 mg DAILY [facility]UR[facility] Administration Carvedilol 12.5 mg 04/01/16 06:46 Coreg - PO BID NURIS Citalopram Hydrobromide 40 mg 03/29/16 10:00 03/31/16 09:31 Celexa - PO 40 mg DAILY [facility] Administration Heparin Sodium (Porcine) 5,000 unit 03/30/16 10:15 03/31/16 22:18 Heparin - SQ 5,000 unit BID [facility] Administration Levofloxacin 50 mls @ 100 mls/hr 03/30/16 10:00 03/30/16 09:50 Levaquin 250 Mg Premixed Ivpb - IVPB 04/03/16 10:29 100 mls/hr Q2D@1000 [facility] Administration Levothyroxine Sodium 88 mcg 03/29/16 07:00 04/01/16 06:18 Synthroid - PO 88 mcg DAILY@0700 [facility] Administration Lisinopril 10 mg 03/31/16 10:00 03/31/16 09:30 Prinivil PO 10 mg DAILY [facility] Administration Prednisone 40 mg 04/01/16 10:00 Deltasone - PO DAILY [facility] Ranitidine HCl 150 mg 03/28/16 18:30 03/31/16 09:31 Zantac - PO 150 mg DAILY [facility] Administration O: 76 year old female was in no acute distress, no pallor, cyanosis, clubbing, or jaundice. Last Vital Signs Temp Pulse Resp BP Pulse Ox 98.4 F 82 20 160/90 93 L 04/01/16 06:55 04/01/16 06:55 04/01/16 06:55 04/01/16 09:40 03/31/16 21:00 Neck: Supple, no JVD, negative HJR, carotids were equal and upstrokes were normal, no thyromegaly appreciated. Heart: PMI was in the 5th intercostal space, no heaves or thrills, S1 and S2 were normal. No murmurs or gallops were appreciated. Lungs: Clear on auscultation bilaterally. Abdomen: Soft, nontender, no hepatosplenomegaly appreciated, and no palpable masses were felt. Extremities: No calf tenderness or dependent edema. Pulses are normal. CBC, BMP 04/01/16 08:15 04/01/16 08:15 Laboratory Results - last 24 hr 04/01/16 04/01/16 08:15 08:15 WBC 13.6 H RBC 4.27 Hgb 12.4 D Hct 38.6 D MCV 90.4 MCHC 32.0 RDW 14.7 Plt Count 353 MPV 7.5 Neutrophils % 78.2 Lymphocytes % 13.6 D Monocytes % 7.7 D Eosinophils % 0.0 Basophils % 0.5 D Sodium 142 Potassium 4.7 Chloride 109 H Carbon Dioxide 23 Anion Gap 10 BUN 56 H Creatinine 1.7 H Creat Clearance w eGFR 29.22 Random Glucose 83 D Calcium 8.9 Magnesium 2.3 Total Bilirubin 0.3 D AST 35 D ALT 32 D Alkaline Phosphatase 68 Creatine Kinase 63 Troponin I 0.08 H Total Protein 7.0 Albumin 2.5 L Impression: (1) Elevated troponin Code(s): R79.89 - OTHER SPECIFIED ABNORMAL FINDINGS OF BLOOD CHEMISTRY (2) Status post fall Code(s): Z91.89 - OTH PERSONAL RISK FACTORS, NOT ELSEWHERE CLASSIFIED (3) Weakness Code(s): R53.1 - WEAKNESS (4) ASHD (arteriosclerotic heart disease) Code(s): I25.10 - ATHSCL HEART DISEASE OF [place] CORONARY ARTERY W/O ANG PCTRS (5) Anemia Code(s): D64.9 - ANEMIA, UNSPECIFIED Qualifiers: Anemia type: due to other cause Other causes of anemia: chronic disease , kidney (6) Aortic stenosis Code(s): I35.0 - NONRHEUMATIC AORTIC (VALVE) STENOSIS Qualifiers: Cardiac valve disease etiology: nonrheumatic Qualified Code(s): I35.0 - Nonrheumatic aortic (valve) stenosis (7) COPD (chronic obstructive pulmonary disease) Code(s): J44.9 - CHRONIC OBSTRUCTIVE PULMONARY DISEASE, UNSPECIFIED Qualifiers : COPD type: unspecified COPD Qualified Code(s): J44.9 - Chronic obstructive pulmonary disease, unspecified (8) Dizziness Code(s): R42 - DIZZINESS AND GIDDINESS (9) HTN (hypertension) Code(s): I10 - ESSENTIAL (PRIMARY) HYPERTENSION Qualifiers: Hypertension type: essential hypertension Qualified Code(s): I10 - Essential (primary) hypertension (10) Hypothyroid Code(s): E03.9 - HYPOTHYROIDISM, UNSPECIFIED Qualifiers: Hypothyroidism type: unspecified Qualified Code(s): E03.9 - Hypothyroidism, unspecified (11) Lung cancer Code(s): C34.90 - MALIGNANT NEOPLASM OF UNSP PART OF UNSP BRONCHUS OR LUNG Qualifiers: Lung location: unspecified part of lung (12) S/P coronary artery stent placement Code(s): Z95.5 - PRESENCE OF CORONARY ANGIOPLASTY IMPLANT AND GRAFT Recommendations: Prognosis: Attestation: Documentation prepared by Carloz Mike, acting as medical editor for Jerson Coronel MD.
[2016-04-01] MEDS ORDERED: DEXTROSE 5% IVPB ONE (10:30)
[2016-04-01] MEDS ORDERED: WATER IVPB ONE (10:30)
[2016-04-01] MEDS ORDERED: DIPYRIDAMOLE STRESS TEST IVPB ONE (10:30)
[2016-04-01] MEDS: LISINOPRIL 10 MG TABLET (FP) PO SCH (11:30)
[2016-04-01] MEDS: HEPARIN NA (PORCINE) 5,000 UNITS/ML 1ML VIAL SQ SCH (12:40)
[2016-04-01] MEDS: ASPIRIN COATED 81 MG TABLET.EC PO SCH (12:40)
[2016-04-01] MEDS: CITALOPRAM HYDROBROMIDE 20 MG TABLET (FP) PO SCH (12:41)
[2016-04-01] MEDS: LEVOFLOXACIN 250 MG IVPB 50 ML IVPB SCH (12:41)
[2016-04-01] MEDS: RANITIDINE HCL 150 MG TABLET (FP) PO SCH (12:41)
--- NOTE | 2016-04-01 13:15 | PN ---
Progress Note, Physician History of Present Illness: Dizziness and gait disturbance improved, denies chest pain or dyspnea. Declined stress testing today. - Current Medication List Current Medications: Active Medications Acetaminophen (Tylenol -) 650 mg PO Q6H PRN PRN Reason: FEVER OR PAIN Last Admin: 04/01/16 04:22 Dose: 650 mg Albuterol Sulfate (Ventolin 0.083% Nebulizer Soln -) 1 amp NEB TID [facility] Last Admin: 04/01/16 06:20 Dose: 1 amp Albuterol/Ipratropium (Duoneb -) 1 amp NEB Q6H PRN PRN Reason: SHORTNESS OF BREATH Aspirin (Ecotrin -) 81 mg PO DAILY [facility] Last Admin: 04/01/16 12:40 Dose: 81 mg Carvedilol (Coreg -) 12.5 mg PO BID [facility] Last Admin: 04/01/16 12:39 Dose: 12.5 mg Citalopram Hydrobromide (Celexa -) 40 mg PO DAILY [facility] Last Admin: 04/01/16 12:41 Dose: 40 mg Heparin Sodium (Porcine) (Heparin -) 5,000 unit SQ BID [facility] Last Admin: 04/01/16 12:40 Dose: 5,000 unit Levofloxacin (Levaquin 250 Mg Premixed Ivpb -) 50 mls @ 100 mls/hr IVPB Q2D@ 1000 [facility] Stop: 04/03/16 10:29 Last Admin: 04/01/16 12:41 Dose: 100 mls/hr Levothyroxine Sodium (Synthroid -) 88 mcg PO DAILY@0700 [facility] Last Admin: 04/01/16 06:18 Dose: 88 mcg Lisinopril (Prinivil) 10 mg PO DAILY [facility] Last Admin: 04/01/16 11:30 Dose: 10 mg Prednisone (Deltasone -) 40 mg PO DAILY [facility] Last Admin: 04/01/16 12:40 Dose: 40 mg Ranitidine HCl (Zantac -) 150 mg PO DAILY [facility] Last Admin: 04/01/16 12:41 Dose: 150 mg - Objective Vital Signs: Vital Signs Temperature 98.4 F 04/01/16 06:55 Pulse Rate 82 04/01/16 06:55 Respiratory Rate 20 04/01/16 06:55 Blood Pressure 165/94 04/01/16 11:30 O2 Sat by Pulse Oximetry (%) 93 L 02/02/17 21:00 Constitutional: Yes: No Distress, Calm, Thin Neck: Yes: Supple Cardiovascular: Yes: Regular Rate and Rhythm, Murmur (2/6 SM) Respiratory: Yes: Regular, Diminished Gastrointestinal: Yes: Normal Bowel Sounds, Soft Edema: No Labs: CBC, BMP 04/01/16 08:15 04/01/16 08:15 INR, PTT INR 1.08 (0.82-1.09) 03/28/16 16:30 Problem List - Problems (1) Dizziness Code(s): R42 - DIZZINESS AND GIDDINESS (2) Elevated troponin Code(s): R79.89 - OTHER SPECIFIED ABNORMAL FINDINGS OF BLOOD CHEMISTRY (3) Pneumonia Code(s): J18.9 - PNEUMONIA, UNSPECIFIED ORGANISM Qualifiers: Pneumonia type: due to unspecified organism Laterality: left Lung location: lower lobe of lung Qualified Code(s): J18.9 - Pneumonia, unspecified organism (4) ASHD (arteriosclerotic heart disease) Code(s): I25.10 - ATHSCL HEART DISEASE OF [place] CORONARY ARTERY W/O ANG PCTRS (5) Acute on chronic renal failure Code(s): N17.9 - ACUTE KIDNEY FAILURE, UNSPECIFIED N18.9 - CHRONIC KIDNEY DISEASE, UNSPECIFIED (6) HTN (hypertension) Code(s): I10 - ESSENTIAL (PRIMARY) HYPERTENSION Qualifiers: Hypertension type: essential hypertension Qualified Code(s): I10 - Essential (primary) hypertension (7) Hypothyroid Code(s): E03.9 - HYPOTHYROIDISM, UNSPECIFIED Qualifiers: Hypothyroidism type: unspecified Qualified Code(s): E03.9 - Hypothyroidism, unspecified (8) S/P coronary artery stent placement Code(s): Z95.5 - PRESENCE OF CORONARY ANGIOPLASTY IMPLANT AND GRAFT (9) Demand ischemia Code(s): I24.8 - OTHER FORMS OF ACUTE ISCHEMIC HEART DISEASE (10) Diastolic dysfunction Code(s): I51.9 - HEART DISEASE, UNSPECIFIED Assessment/Plan Transthoracic echocardiography reveals at least moderate or moderate to severe aortic valve stenosis with ERNESTO 0.8 cm 2 and mean gradient of 24 mmHg 1. Gait dysfunction, no LOC 2. Elevated troponin with underlying history of CAD s/p PCI/stent, angina pectoris - demand ischemia 3. HTN/HCVD 4. Hypercholesterolemia 5. Diastolic left ventricular dysfunction with class 1 NYHA classification LV failure 6. Aortic valve disease - moderate aortic valve stenosis 7. Hypothyroidism 8. History of lung CA post chemotherapy 9. History of breast CA post lumpectomy, chemotherapy 10. Acute on CKD resolved 11. Anemia and history of post-polypectomy bleed 12. COPD PLAN: 1. Continue Carvedilol 12.5 bit, lisinopril 10 qd, ASA 81 qd 2. Complete abx course, BD, steroid taper 3. DVT and GI prophylaxis, PT for gait training, d/c planning
[2016-04-01 13:18] VITALS: TEMP 97.5
--- NOTE | 2016-04-01 14:04 | PN ---
Progress Note, Physician History of Present Illness: pulmonary alert,comfortable,nad,sob improving - Current Medication List Current Medications: Active Medications Acetaminophen (Tylenol -) 650 mg PO Q6H PRN PRN Reason: FEVER OR PAIN Last Admin: 04/01/16 04:22 Dose: 650 mg Albuterol Sulfate (Ventolin 0.083% Nebulizer Soln -) 1 amp NEB TID [facility] Last Admin: 04/01/16 06:20 Dose: 1 amp Albuterol/Ipratropium (Duoneb -) 1 amp NEB Q6H PRN PRN Reason: SHORTNESS OF BREATH Aspirin (Ecotrin -) 81 mg PO DAILY [facility] Last Admin: 04/01/16 12:40 Dose: 81 mg Carvedilol (Coreg -) 12.5 mg PO BID [facility] Last Admin: 04/01/16 12:39 Dose: 12.5 mg Citalopram Hydrobromide (Celexa -) 40 mg PO DAILY [facility] Last Admin: 04/01/16 12:41 Dose: 40 mg Heparin Sodium (Porcine) (Heparin -) 5,000 unit SQ BID [facility] Last Admin: 04/01/16 12:40 Dose: 5,000 unit Levofloxacin (Levaquin 250 Mg Premixed Ivpb -) 50 mls @ 100 mls/hr IVPB Q2D@ 1000 [facility] Stop: 04/03/16 10:29 Last Admin: 04/01/16 12:41 Dose: 100 mls/hr Levothyroxine Sodium (Synthroid -) 88 mcg PO DAILY@0700 [facility] Last Admin: 04/01/16 06:18 Dose: 88 mcg Lisinopril (Prinivil) 10 mg PO DAILY [facility] Last Admin: 04/01/16 11:30 Dose: 10 mg Prednisone (Deltasone -) 40 mg PO DAILY [facility] Last Admin: 04/01/16 12:40 Dose: 40 mg Ranitidine HCl (Zantac -) 150 mg PO DAILY [facility] Last Admin: 04/01/16 12:41 Dose: 150 mg - Objective Vital Signs: Vital Signs Temperature 97.5 F L 04/01/16 09:00 Pulse Rate 98 H 04/01/16 09:00 Respiratory Rate 20 04/01/16 09:00 Blood Pressure 165/94 04/01/16 11:30 O2 Sat by Pulse Oximetry (%) 93 L 03/31/16 21:00 Constitutional: Yes: Well Nourished, Calm Eyes: Yes: WNL HENT: Yes: WNL Neck: Yes: WNL Cardiovascular: Yes: Regular Rate and Rhythm, S1, S2 Respiratory: Yes: Diminished Gastrointestinal: Yes: Normal Bowel Sounds, Soft Extremities: Yes: WNL Edema: No Labs: CBC, BMP 04/01/16 08:15 04/01/16 08:15 INR, PTT INR 1.08 (0.82-1.09) 03/28/16 16:30 Assessment/Plan Problems (1) Dizziness Code(s): R42 - DIZZINESS AND GIDDINESS (2) Hypoxia Code(s): R09.02 - HYPOXEMIA (3) Pneumonia Code(s): J18.9 - PNEUMONIA, UNSPECIFIED ORGANISM Qualifiers: Pneumonia type: due to unspecified organism Laterality: left Lung location: lower lobe of lung Qualified Code(s): J18.9 - Pneumonia, unspecified organism (4) Renal insufficiency Code(s): N28.9 - DISORDER OF KIDNEY AND URETER, UNSPECIFIED (5) Status post fall Code(s): Z91.89 - [facility] PERSONAL RISK FACTORS, NOT ELSEWHERE CLASSIFIED (6) Weakness Code(s): R53.1 - WEAKNESS (7) ASHD (arteriosclerotic heart disease) Code(s): I25.10 - ATHSCL HEART DISEASE OF [place] CORONARY ARTERY W/O ANG PCTRS (8) Anemia Code(s): D64.9 - ANEMIA, UNSPECIFIED Qualifiers: Anemia type: due to other cause Other causes of anemia: chronic disease , kidney (9) Aortic stenosis Code(s): I35.0 - NONRHEUMATIC AORTIC (VALVE) STENOSIS Qualifiers: Cardiac valve disease etiology: nonrheumatic Qualified Code(s): I35.0 - Nonrheumatic aortic (valve) stenosis (10) Breast CA Code(s): C50.919 - MALIGNANT NEOPLASM OF UNSP SITE OF UNSPECIFIED FEMALE BREAST (11) CAD (coronary artery disease) Code(s): I25.10 - ATHSCL HEART DISEASE OF [place] CORONARY ARTERY W/O ANG PCTRS Qualifiers: Coronary Disease-Associated Artery/Lesion type: [place] artery [place] vs. transplanted heart: [place] heart Associated angina: without angina Qualified Code(s): I25.10 - Atherosclerotic heart disease of [place] coronary artery without angina pectoris (12) COPD (chronic obstructive pulmonary disease) Code(s): J44.9 - CHRONIC OBSTRUCTIVE PULMONARY DISEASE, UNSPECIFIED Qualifiers : COPD type: unspecified COPD Qualified Code(s): J44.9 - Chronic obstructive pulmonary disease, unspecified (13) Cough Code(s): R05 - COUGH (14) HTN (hypertension) Code(s): I10 - ESSENTIAL (PRIMARY) HYPERTENSION Qualifiers: Hypertension type: essential hypertension Qualified Code(s): I10 - Essential (primary) hypertension (15) S/P coronary artery stent placement Code(s): Z95.5 - PRESENCE OF CORONARY ANGIOPLASTY IMPLANT AND GRAFT Assessment/Plan PLAN: Levaquin Prednisone BD TX standing and PRN O2 as needed to maintain saturation monitor lyes,renal function IVF DR ALVAREZ
[2016-04-01 14:57] VITALS: BP 144/85; PULSE 75
--- NOTE | 2016-04-01 15:27 | PN ---
Progress Note (short form) - Note Progress Note: Renal Follow up for FRANK on CKD Pt seen and examined at the bedside no complaints Vital Signs Temperature 97.5 F L 04/01/16 14:00 Pulse Rate 75 04/01/16 14:00 Respiratory Rate 20 04/01/16 14:00 Blood Pressure 144/85 04/01/16 14:00 O2 Sat by Pulse Oximetry (%) 93 L 03/31/16 21:00 Intake & Output 03/29/16 03/30/16 03/31/16 04/01/16 23:59 23:59 23:59 23:59 Intake Total 700 920 821 60 Output Total 200 Balance 700 720 821 60 Weight 110 lb 6.4 oz Gen: NAD, awake and alert CVS: RRR, No M/R Lungs: + rales at left lung base Abd: soft NT/ND Ext: no edema, clubbing or cyanosis CBC, BMP 04/01/16 08:15 04/01/16 08:15 Current Medications Acetaminophen (Tylenol -) 650 mg PO Q6H PRN PRN Reason: FEVER OR PAIN Last Admin: 04/01/16 04:22 Dose: 650 mg Albuterol Sulfate (Ventolin 0.083% Nebulizer Soln -) 1 amp NEB TID [facility] Last Admin: 04/01/16 14:22 Dose: Not Given Albuterol/Ipratropium (Duoneb -) 1 amp NEB Q6H PRN PRN Reason: SHORTNESS OF BREATH Aspirin (Ecotrin -) 81 mg PO DAILY [facility] Last Admin: 04/01/16 12:40 Dose: 81 mg Carvedilol (Coreg -) 12.5 mg PO BID [facility] Last Admin: 04/01/16 12:39 Dose: 12.5 mg Citalopram Hydrobromide (Celexa -) 40 mg PO DAILY [facility] Last Admin: 04/01/16 12:41 Dose: 40 mg Heparin Sodium (Porcine) (Heparin -) 5,000 unit SQ BID [facility] Last Admin: 04/01/16 12:40 Dose: 5,000 unit Levofloxacin (Levaquin 250 Mg Premixed Ivpb -) 50 mls @ 100 mls/hr IVPB Q2D@ 1000 [facility] Stop: 04/03/16 10:29 Last Admin: 04/01/16 12:41 Dose: 100 mls/hr Levothyroxine Sodium (Synthroid -) 88 mcg PO DAILY@0700 [facility] Last Admin: 04/01/16 06:18 Dose: 88 mcg Lisinopril (Prinivil) 10 mg PO DAILY [facility] Last Admin: 04/01/16 11:30 Dose: 10 mg Prednisone (Deltasone -) 40 mg PO DAILY [facility] Last Admin: 04/01/16 12:40 Dose: 40 mg Ranitidine HCl (Zantac -) 150 mg PO DAILY [facility] Last Admin: 04/01/16 12:41 Dose: 150 mg A/p 76 year old woman with PMhx of CKD Stage 4 w/o significant proteinuria, Hypertension, CHF, Breast Ca s/p Lumpectomy and chemo, COPD on home O2, Anemia, Hx of GIB presented with hypotension and fall and found to have FRANK with BUN/Cr of 51/2.8 #Acute on Chronic Renal Insufficiency likely secondary to renal hypoperfusion in setting of hypotension and hypovolemia Renal Function improved and stable UPCR shows subnephrotic proteinuria SPEP and [place] ratio is pending Continue ACEi continue to trend BUN/cr #Hypotension (? medication induced vs. hypovolemia) BP improved on Lisiniopril and Coreg #hx of CHF no evidence of decompensation at this time #COPD/PERKINS/PNA Tapered to oral steroids Eric Mendoza DO .
[2016-04-02 00:07] LABS: A/G RATIO 0.7 (0.7-1.7); ALBUMIN 2.7 g/dL (2.9-4.4); GLOBULIN, TOTAL 3.9 g/dL (2.2-3.9); TOTAL PROTEIN 6.6 g/dL (6.0-8.5)
[2016-04-05 00:07] LABS: KAPPA LAMBDA RATIO URIN 5.92 (2.04-10.37)
== END 2016-04-01 18:24 | disposition home or self-care (01) | DRG 682 ==
LOC: JER 15:37 → JERBED 17:56 → J4S 03-29 01:31
PROVIDERS: ADMIT Family Medicine; ATTEND Family Medicine
DX: N17.9 Acute kidney failure, unspecified (principal); J18.9 Pneumonia, unspecified organism; I13.0 Hypertensive heart and chronic kidney disease with heart failure and stage 1 through stage 4 chronic kidney disease, or unspecified chronic kidney disease; I50.30 Unspecified diastolic (congestive) heart failure; I25.10 Atherosclerotic heart disease of native coronary artery without angina pectoris; J44.9 Chronic obstructive pulmonary disease, unspecified; E03.9 Hypothyroidism, unspecified; E04.2 Nontoxic multinodular goiter; K57.90 Diverticulosis of intestine, part unspecified, without perforation or abscess without bleeding; M54.5 Low back pain; I27.2 Other secondary pulmonary hypertension; M85.88 Other specified disorders of bone density and structure, other site; R09.02 Hypoxemia; R79.89 Other specified abnormal findings of blood chemistry; E78.5 Hyperlipidemia, unspecified; R26.89 Other abnormalities of gait and mobility; G25.3 Myoclonus; N18.4 Chronic kidney disease, stage 4 (severe); Z85.3 Personal history of malignant neoplasm of breast; Z85.118 Personal history of other malignant neoplasm of bronchus and lung; Z95.5 Presence of coronary angioplasty implant and graft; Z87.891 Personal history of nicotine dependence
CPT/HCPCS: 36415; 70450-TC; 71010-TC; 80048; 80053; 80061; 81003; 82272; 82550; 82553; 82570; 82607; 83605; 83721; 83735; 83883; 84100; 84155; 84156; 84165; 84484; 85025; 85610; 86850; 86900; 86901; 87086; 93005; 93010; 93306-TC; 94640; 97116-GP; 97162-PG; 99283-25; A9502; J1644

== ENCOUNTER 2016-07-09 14:30 | Inpatient (IN) | payer OTHER, MEDICARE ==
[2016-07-09 14:36] VITALS: BMI 17.1
--- NOTE | 2016-07-09 15:09 | PDOC ---
History of Present Illness - General Chief Complaint: Revisit, Lab Variance Stated Complaint: PCP SENT/ potassium HIGH Time Seen by Provider: 07/09/16 14:38 History Source: Patient Exam Limitations: No Limitations - History of Present Illness Initial Comments: 07/09/16 15:10 This patient is a 76 yo F h/o Aortic stenosis, CAD s/p PCI and stent, HTN, HLD, Pulmonary HTN, Small cell carcinoma dx 4-5 years ago, h/o renal insufficiency who presents to the ER with a complaint of elevated potassium Pt was seen by her PMD yesterday, labs were checked (he has been closely monitoring her potassium) They received a call today that her potassium was elevated Pt denies chest pain, shortness of breath, nausea, vomiting or diarrhea She has been eating at her baseline No other complaints Pt has been minimizing her ingestion of potassium rich foods She is drinking at her baseline Has good urine output PMH: as above, diverticulosis, breast cancer, anxiety, chronic back pain, hypothyroidism PSH: laminectomy, tonsillectomy, tubal ligation Meds: please see mar ALL: NKDA Social: denies alcohol, drug or cigarette use GENERAL/CONSTITUTIONAL: Yes: loss of appetite No: fever, chills, weakness HEAD, EYES, EARS, NOSE AND THROAT: No: change in vision, ear pain, CARDIOVASCULAR: No: chest pain, lightheadedness RESPIRATORY: No: cough, shortness of breath, GASTROINTESTINAL: No: nausea, vomiting, diarrhea, abdominal pain GENITOURINARY: No: dysuria, hematuria MUSCULOSKELETAL: No: back pain, neck pain, joint pain SKIN: No: lesions NEUROLOGIC: No: headache, vertigo, paresthesias, weakness GENERAL: The patient is in no acute distress, (+) cachectic. HEAD: Normal with no signs of trauma. EYES: PERRLA, EOMI, sclera anicteric, conjunctiva clear. ENT: Moist mucous membranes. NECK: Normal range of motion, supple LUNGS: Breath sounds equal, clear to auscultation bilaterally HEART:Regular rate and rhythm, normal S1 and S2 without murmur, rub or gallop. ABDOMEN: Soft, nontender, normoactive bowel sounds. No guarding, no rebound. EXTREMITIES: Normal range of motion, no edema. NEUROLOGICAL: Cranial nerves II through XII grossly intact. Normal speech. No focal neurological deficits. MUSCULOSKELETAL: Back non-tender to palpation SKIN: No erythema overlying mediport Past History - Past Medical History Allergies/Adverse Reactions: Allergies Allergy/AdvReac Type Severity Reaction Status Date / Time No Known Allergies Allergy Verified 07/09/16 14:32 Home Medications: Ambulatory Orders Citalopram Hydrobromide [Citalopram HBr] 40 mg PO DAILY 11/12/15 Cholecalciferol (Vitamin D3) [Vitamin D -] 1,000 unit PO DAILY 01/07/16 Albuterol 0.083% Nebulizer Heena [Ventolin 0.083% Nebulizer Soln -] 1 amp NEB Q4H PRN #0 amp 01/26/16 Levothyroxine [Synthroid -] 88 mcg PO DAILY@0700 03/07/16 Aspirin Coated [Ecotrin -] 81 mg PO DAILY tablet.ec 04/01/16 Carvedilol [Coreg -] 12.5 mg PO BID #30 tablet 04/01/16 Anemia: Yes Asthma: No Cancer: Yes (Rt breast CA and lung CA - 2 primaries) Cardiac Disorders: Yes (ASHD S/P STENT) CVA: No COPD: Yes (O2 3L NC PRN.) CHF: No Dementia: No Diabetes: No GI Disorders: No Disorders: Yes (uti,renal insuff.) HTN: Yes Hypercholesterolemia: No Liver Disease: No Suicide Attempt (Hx): No Seizures: No Thyroid Disease: Yes (hypothyroidism, MULTIPLE NODULES) - Surgical History Abdominal Surgery: No Appendectomy: No Cardiac Surgery: Yes (STENT) Cholecystectomy: No Lung Surgery: Yes (LUNG BX, LUNG CA) Neurologic Surgery: No Orthopedic Surgery: Yes (CERVICAL, LUMBAR LAMINECTOMIES) - Immunization History Immunization Up to Date: Yes - Psycho/Social/Smoking Cessation Hx Anxiety: No Suicidal Ideation: No Smoking Status: Yes Smoking History: Former smoker Have you smoked in the past 12 months: No Number of Cigarettes Smoked Daily: 0 If you are a former smoker, when did you quit?: 2004 Cigars Per Day: 0 Information on smoking cessation initiated: No 'Breaking Loose' booklet given: 09/29/14 Hx Alcohol Use: No Drug/Substance Use Hx: No Substance Use Type: None Hx Substance Use Treatment: No *Physical Exam - Vital Signs Last Vital Signs Temp Pulse Resp BP Pulse Ox 97.5 F L 104 H 18 148/93 95 07/09/16 14:31 07/09/16 14:31 07/09/16 14:31 07/09/16 14:31 07/09/16 14:31 ED Treatment Course - LABORATORY CBC & Chemistry Diagram: 07/11/16 05:35 07/11/16 05:35 Medical Decision Making - Medical Decision Making 07/09/16 15:18 Will repeat labs 07/09/16 17:00 07/09/16 17:01 Laboratory Tests 07/09/16 07/09/16 14:42 14:42 WBC 15.8 H Hgb 9.7 L D Hct 30.0 L D Plt Count 460 H D Neutrophils % 74.4 Lymphocytes % 14.4 Sodium 139 Potassium 6.2 H* D Chloride 107 Carbon Dioxide 23 BUN 50 H Creatinine 2.5 H D Random Glucose 76 Pt initially hesitant to stay in the hospital We have had a long conversation about her lab results She is willing to stay Will treat her hyperkalemia and renal insufficiency Will place on [address] Reyes Clinical impression: renal insufficiency, hyperkalemia 07/11/16 07:51 *DC/Admit/Observation/Transfer Diagnosis at time of Disposition: Renal insufficiency, Hyperkalemia - Discharge Dispostion Condition at time of disposition: Stable Admit: Yes
[2016-07-09 15:55] LABS: BASOPHIL 0.8 % (0-2.0); EOSINOPHIL 3.3 % (0-4.5); MCH 29.7 pg (25.7-33.7); MCHC 32.5 g/dl (32.0-36.0); MEAN CELL VOLUME 91.5 fl (80-96); MEAN PLT VOLUME 7.3 fl (7.5-11.1); NEUTROPHILS 74.4 % (42.8-82.8); PLATELET COUNT 460 K/MM3 (134-434); RDW 17.8 % (11.6-15.6); WHITE BLOOD COUNT 15.8 K/mm3 (4.0-10.0)
[2016-07-09 16:18] LABS: BILIRUBIN,TOTAL 0.2 mg/dL (0.2-1.0); CALCIUM 9.7 mg/dL (8.5-10.1); COCKROFT - GAULT 14.11; CREATININE 2.5 mg/dL (0.55-1.02)
[2016-07-09] MEDS ORDERED: DEXTROSE 50%-WATER 50 ML VIAL IVPUSH ONE (16:59)
[2016-07-09] MEDS ORDERED: INSULIN REGULAR HUMAN 100 UNITS/ML *VIAL IVPUSH ONE (16:59)
[2016-07-09] MEDS ORDERED: CALCIUM GLUCONATE 10% - 1,000 MG/10 ML VIAL IVPB ONE (16:59)
[2016-07-09] MEDS ORDERED: SODIUM CHLORIDE 1,000 ML IV STA (16:59)
[2016-07-09] MEDS ORDERED: INSULIN REGULAR HUMAN 100 UNITS/ML *VIAL ONE (17:13)
[2016-07-09] MEDS ORDERED: CALCIUM GLUCONATE 10% - 1,000 MG/10 ML VIAL ONE (17:27)
[2016-07-09] MEDS ORDERED: ACETAMINOPHEN 325 MG TABLET (FP) PO PRN (18:36)
[2016-07-09 20:53] LABS: URINE APPEARANCE CLEAR; URINE BILIRUBIN NEGATIVE (NEGATIVE); URINE BLOOD NEGATIVE (NEGATIVE); URINE COLOR STRAW; URINE GLUCOSE (UA) NEGATIVE (NEGATIVE); URINE KETONE NEGATIVE (NEGATIVE); URINE LEUK ESTERASE NEGATIVE (NEGATIVE); URINE NITRITE NEGATIVE (NEGATIVE); URINE PROTEIN NEGATIVE (NEGATIVE); URINE UROBILINOGEN NEGATIVE E.U./dl (0.2-1.0)
[2016-07-09 20:58] LABS: CALCIUM 9.2 mg/dL (8.5-10.1); COCKROFT - GAULT 15.3; CREATININE 2.3 mg/dL (0.55-1.02)
[2016-07-09] MEDS: CARVEDILOL 12.5 MG TABLET (FP) PO SCH (21:52)
[2016-07-10] MEDS: LEVOTHYROXINE NA 88 MCG TABLET (FP) PO SCH (06:08)
[2016-07-10 08:28] LABS: MCHC 32.5 g/dl (32.0-36.0); MEAN CELL VOLUME 92.3 fl (80-96); MEAN PLT VOLUME 7.7 fl (7.5-11.1); PLATELET COUNT 428 K/MM3 (134-434); RDW 17.5 % (11.6-15.6); WHITE BLOOD COUNT 14.9 K/mm3 (4.0-10.0)
[2016-07-10 09:00] LABS: ALBUMIN 2.8 g/dl (3.4-5.0); CALCIUM 9.1 mg/dL (8.5-10.1)
[2016-07-10] MEDS: predniSONE 20 MG TABLET (UD) PO SCH ×2 (09:04→09:09)
[2016-07-10] MEDS: CARVEDILOL 12.5 MG TABLET (FP) PO SCH ×2 (09:05→21:43)
[2016-07-10] MEDS: ASPIRIN COATED 81 MG TABLET.EC PO SCH (09:05)
[2016-07-10 09:09] LABS: BILIRUBIN,TOTAL 0.7 mg/dL (0.2-1.0); COCKROFT - GAULT 15.98; CREATININE 2.2 mg/dL (0.55-1.02); TOT PROT 6.7 g/dl (6.4-8.2)
--- NOTE | 2016-07-10 09:15 | CON.NEP ---
Consult Consult Specialty:: Nephrology Referred by:: Dr Reyes Reason for Consultation:: CKD with hyperkalemia - History of Present Illness Chief Complaint: No complaints- Pt referred to hospital for abnormal labs History of Present Illness: This patient is a 76 yo F h/o Aortic stenosis, CAD s/p PCI and stent, HTN, HLD, Hypothyroidism, Pulmonary HTN, Small cell carcinoma dx 4-5 years ago, Right Breast CA and h/o renal insufficiency that she attributed to prior chemotherapy which she last received 4 years ago. 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 Smoker No recent ETOH abuse- AA - History Source History Provided By: Patient, Medical Record - Past Medical History Cardio/Vascular: Yes: Aortic Stenosis, CAD (with coronary stenting), HTN, Hyperlipdemia, Mitral Insufficiency, Pulmonary Hypertension Pulmonary: Yes: Cancer (Chemothrerapy for small cell carcinoma- Dr Simpson), COPD Gastrointestinal: Yes: Diverticulosis, Other (Breast lumpectomy) Renal/: Yes: Renal Failure, Renal Inusuff ...: No Psych: Yes: Anxiety Musculoskeletal: Yes: Chronic low back pain, Osteoarthritis Endocrine: Yes: Hypothyroidism, Osteopenia - Past Surgical History Past Surgical History: Yes: Laminectomy (cervical ', lumbar '), Stent, Tonsillectomy, Tubal Ligation - Alcohol/Substance Use Hx Alcohol Use: Yes Date of Last Use: 02/27/81 - Smoking History Smoking history: Former smoker Have you smoked in the past 12 months: No Aproximately how many cigarettes per day: 0 If you are a former smoker, when did you quit?: 2004 - Social History Usual Living Arrangement: With Spouse ADL: Independent 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 History of Recent Travel: No Home Medications - Allergies Allergies/Adverse Reactions: Allergies Allergy/AdvReac Type Severity Reaction Status Date / Time No Known Allergies Allergy Verified 07/09/16 14:32 - Home Medications Home Medications: Ambulatory Orders Citalopram Hydrobromide [Citalopram HBr] 40 mg PO DAILY 11/12/15 Cholecalciferol (Vitamin D3) [Vitamin D -] 1,000 unit PO DAILY 01/07/16 Albuterol 0.083% Nebulizer Heena [Ventolin 0.083% Nebulizer Soln -] 1 amp NEB Q4H PRN #0 amp 01/26/16 Levothyroxine [Synthroid -] 88 mcg PO DAILY@0700 03/07/16 Aspirin Coated [Ecotrin -] 81 mg PO DAILY tablet.ec 04/01/16 Carvedilol [Coreg -] 12.5 mg PO BID #30 tablet 04/01/16 Family Disease History - Family Disease History Family Disease History: CA: Father (diffuse unknown primary), Sister ( of lung cancer), Other: Mother ( after hip fracture) Review of Systems - Review of Systems Constitutional: reports: No Symptoms Gastrointestinal: denies: Abdominal Pain Genitourinary: denies: Burning, Dysuria, Flank Pain Nephrology Consult - Height Height: 5 ft 5 in - Weight Weight: 103 lb - BMI Body Mass Index (BMI): 17.1 - Lab Results CBC,BMP: CBC, BMP 07/10/16 05:55 Laboratory Tests 03/31/16 04/01/16 07/09/16 07:45 08:15 14:42 Potassium 6.2 H* D Creatinine 1.8 H 1.7 H 2.5 H D 07/09/16 20:20 Potassium 5.7 H Creatinine 2.3 H Laboratory Tests 07/09/16 07/09/16 14:42 20:20 Sodium 138 Potassium 5.7 H Chloride 108 H Carbon Dioxide 23 Anion Gap 7 L BUN 51 H Creatinine 2.3 H Random Glucose 81 AST 14 L D ALT 16 D Alkaline Phosphatase 80 Total Protein 7.0 Albumin 3.0 L U/A: Laboratory Tests 07/09/16 20:40 Urine Color Straw Urine Appearance Clear Urine pH 5.0 Ur Specific [place] 1.010 Urine Protein Negative Urine Glucose (UA) Negative Urine Ketones Negative Urine Blood Negative Urine Nitrite Negative Urine Bilirubin Negative Urine Urobilinogen Negative Ur Leukocyte Esterase Negative Anion Gap: Anion Gap Anion Gap 7 (8-16) L 07/09/16 20:20 - Imaging Chest X-ray: Report Reviewed EKG: Other (NSR with PVC Ant infarct and slight peaking of the T waves) - Physical Examination Vital Signs: Vital Signs Temperature 98.3 F 07/10/16 07:56 Pulse Rate 96 H 07/10/16 07:56 Respiratory Rate 18 07/10/16 07:59 Blood Pressure 154/82 07/10/16 07:56 O2 Sat by Pulse Oximetry (%) 96 07/10/16 07:59 Constitutional: Yes: No Distress HENT: Yes: Other (Left q port) Cardiovascular: Yes: S1, S2. No: JVD Respiratory: Yes: CTA Bilaterally Gastrointestinal: Yes: Soft. No: Tenderness, Rebound Renal/: No: Bladder Distention Edema: No Assessment/Plan Impression CKD with hyperkalemia- Etiology of the CKD as per pt was from her Chemotherapy- ? from pt having been off steroids which she was previously on. HTN CAD with stents Hyperlipidemia Hypothyroidism H/O Breast and Lung Ca Anemia Plan Await official renal and U Bladder US report and today's labs Restrict K in the diet IVF as ordered Urine for Pro/Cr ratio Since pt is back on Prednisone will not obtain a Cortisol level to R/O adrenal insuff at this time May need to add a diuretic for the Hyperkalemia and the HTN Avoid NSAIDs, ACEi/Arbs and other agents that may contribute to the hyperkalemia Thank You Will Follow Dr Walker
[2016-07-10] MEDS ORDERED: SODIUM POLYSTYRENE SULFONATE 15 GM/60 ML BOTTLE PO ONE (10:00)
--- NOTE | 2016-07-10 10:38 | PN ---
Progress Note (short form) - Note Progress Note: ID Consult dictated Leukocytosis Hyperkalemia CKD Hx COPD Hx lung and breast ca No clear infectious focus; pt not toxic appearing Will obtain cultures Observe off antibiotics
--- NOTE | 2016-07-10 11:07 | CONS ---
DATE OF CONSULTATION: DATE OF DICTATION: 07/10/2016 A 76-year-old female with a past history of breast cancer, lung cancer, and COPD evaluated for leukocytosis. The patient was admitted to the hospital after she was asked to present because of an abnormal laboratory value. She was found to have a serum potassium as an outpatient of 6.2. The patient was admitted to the hospital, where she was noted to have an elevated white blood cell count. She denies any recent febrile illness. She has a history of COPD and intermittently takes prednisone; however, states she has not taken prednisone for 2 weeks. She also has a history of breast and lung cancer. She last received chemotherapy approximately 4 years ago. She denies any high-grade fever, shaking chills. She has an occasional cough productive of yellowish sputum. She denies any hemoptysis. No complaints of chest pain or dyspnea. She denies any dysuria or hematuria. No vomiting or diarrhea. PAST MEDICAL HISTORY: Positive for aortic stenosis, coronary artery disease, status post coronary artery stent, hypertension, hyperlipidemia, pulmonary hypertension, chronic kidney disease, diverticulosis, chronic low back pain, hypothyroidism, history of small cell CA of the lung. No known allergies. MEDICATIONS: Ventolin, Synthroid, Ecotrin, Coreg. PAST SURGICAL HISTORY: Status post laminectomy, tonsillectomy, and tubal ligation. SOCIAL HISTORY: She lives at home with family members. She is a former smoker. SYSTEMS REVIEW: Neurologic: No loss of consciousness, seizure activity, focal weakness. Cardiac: Negative chest pain or palpitations. Respiratory: Negative cough or sputum production. Gastrointestinal: Negative vomiting or diarrhea. Genitourinary: Negative for urinary tract infection. LABORATORY DATA: White count 15.8 with 74 neutrophils, 14 lymphocytes, 7 monocytes, hematocrit 30, platelet count 460. BUN 51, creatinine 2.3, potassium 5.7. Urinalysis negative. Chest x-ray negative for acute infiltrate. PHYSICAL EXAMINATION: General: She is awake and alert. She is chronically ill-appearing, in no acute respiratory distress. Vital Signs: Temperature 98.3, blood pressure 158/87, pule 106 and regular, respirations 18 per minute. HEENT: Sclerae anicteric. Dry mucous membranes. Skin: Port site with no erythema or tenderness. Cardiac: Heart sounds S1, S2. Lungs: Crepitations at the bases bilaterally. Abdomen: Soft. No tenderness elicited. No mass, rebound, rigidity. Extremities: Negative for edema. IMPRESSION: 1. Leukocytosis, unclear source. 2. Hyperkalemia. 3. Chronic kidney disease. 4. History of lung and breast carcinoma. 5. Chronic obstructive pulmonary disease. Source of leukocytosis not clear. No obvious infectious focus. Patient is nontoxic-appearing. Will obtain cultures and observe off antibiotic therapy. Will start empiric antibiotic coverage should she have fever or change in her clinical condition. Will follow. Thank you for the kind referral. RICARDO MASTERSON M.D. [id number]
--- NOTE | 2016-07-10 20:57 | HP ---
Admitting History and Physical - Primary Care Physician PCP: John Reyes - Admission Chief Complaint: HYPERKALEMIA ACUTE RENAL FAILURE History of Present Illness: This patient is a 76 yo F h/o Aortic stenosis, CAD s/p PCI and stent, HTN, HLD, Pulmonary HTN, Small cell carcinoma dx 4-5 years ago, h/o renal insufficiency who presents to the ER with a complaint of elevated potassium Pt was seen by her PMD yesterday, labs were checked (he has been closely monitoring her potassium) They received a call today that her potassium was elevated Pt denies chest pain, shortness of breath, nausea, vomiting or diarrhea She has been eating at her baseline No other complaints History Source: Patient - Past Medical History Cardiovascular: Yes: Aortic Stenosis, CAD (with coronary stenting), HTN, Hyperlipdemia, Mitral Insufficiency, Pulmonary Hypertension Pulmonary: Yes: Cancer (Chemothrerapy for small cell carcinoma- Dr Simpson), COPD Gastrointestinal: Yes: Diverticulosis, Other (Breast lumpectomy) Renal/: Yes: Renal Failure, Renal Inusuff ...: No Heme/Onc: Yes: Cancer Psych: Yes: Anxiety Musculoskeletal: Yes: Chronic low back pain, Osteoarthritis Endocrine: Yes: Hypothyroidism, Osteopenia - Past Surgical History Past Surgical History: Yes: Laminectomy (cervical ', lumbar '), Stent, Tonsillectomy, Tubal Ligation - Smoking History Smoking history: Former smoker Have you smoked in the past 12 months: No Aproximately how many cigarettes per day: 0 If you are a former smoker, when did you quit?: 2004 - Alcohol/Substance Use Hx Alcohol Use: Yes Date of Last Use: 02/27/81 - Social History ADL: Independent 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 History of Recent Travel: No Home Medications - Allergies Allergies/Adverse Reactions: Allergies Allergy/AdvReac Type Severity Reaction Status Date / Time No Known Allergies Allergy Verified 07/09/16 14:32 - Home Medications Home Medications: Ambulatory Orders Citalopram Hydrobromide [Citalopram HBr] 40 mg PO DAILY 11/12/15 Cholecalciferol (Vitamin D3) [Vitamin D -] 1,000 unit PO DAILY 01/07/16 Albuterol 0.083% Nebulizer Heena [Ventolin 0.083% Nebulizer Soln -] 1 amp NEB Q4H PRN #0 amp 11/29/16 Levothyroxine [Synthroid -] 88 mcg PO DAILY@0700 03/07/16 Aspirin Coated [Ecotrin -] 81 mg PO DAILY tablet.ec 04/01/16 Carvedilol [Coreg -] 12.5 mg PO BID #30 tablet 04/01/16 Family Disease History - Family Disease History Family Disease History: CA: Father (diffuse unknown primary), Sister ( of lung cancer), Other: Mother ( after hip fracture) Review of Systems - Review of Systems Constitutional: reports: No Symptoms Eyes: reports: No Symptoms HENT: reports: No Symptoms Neck: reports: No Symptoms Cardiovascular: reports: No Symptoms Respiratory: reports: No Symptoms Gastrointestinal: reports: No Symptoms Genitourinary: reports: No Symptoms Musculoskeletal: reports: No Symptoms Integumentary: reports: No Symptoms Neurological: reports: No Symptoms Endocrine: reports: No Symptoms Hematology/Lymphatic: reports: No Symptoms Psychiatric: reports: No Symptoms Physical Examination Vital Signs: Vital Signs Temperature 98.8 F 07/10/16 17:00 Pulse Rate 95 H 07/10/16 17:00 Respiratory Rate 18 07/10/16 17:00 Blood Pressure 140/81 07/10/16 17:00 O2 Sat by Pulse Oximetry (%) 96 07/10/16 07:59 Constitutional: Yes: No Distress Eyes: Yes: WNL HENT: Yes: WNL Neck: Yes: WNL Cardiovascular: Yes: WNL Respiratory: Yes: WNL Gastrointestinal: Yes: WNL ...Rectal Exam: Yes: WNL Renal/: Yes: WNL Musculoskeletal: Yes: WNL Extremities: Yes: WNL Edema: No Peripheral Pulses WNL: Yes Integumentary: Yes: WNL Wound/Incision: Yes: Clean/Dry Neurological: Yes: WNL ...Motor Strength: WNL Psychiatric: Yes: WNL Labs: CBC, BMP 07/10/16 05:55 07/10/16 05:55 Problem List - Problems (1) Hyperkalemia Code(s): E87.5 - HYPERKALEMIA (2) Renal insufficiency Code(s): N28.9 - DISORDER OF KIDNEY AND URETER, UNSPECIFIED (3) ASHD (arteriosclerotic heart disease) Code(s): I25.10 - ATHSCL HEART DISEASE OF [place] CORONARY ARTERY W/O ANG PCTRS (4) Acute kidney failure Code(s): N17.9 - ACUTE KIDNEY FAILURE, UNSPECIFIED Qualifiers: Acute renal failure type: with other specified pathological lesion Qualified Code(s): N17.8 - Other acute kidney failure (5) Acute on chronic renal failure Code(s): N17.9 - ACUTE KIDNEY FAILURE, UNSPECIFIED N18.9 - CHRONIC KIDNEY DISEASE, UNSPECIFIED (6) Anemia Code(s): D64.9 - ANEMIA, UNSPECIFIED Qualifiers: Anemia type: due to other cause Other causes of anemia: chronic disease , kidney (7) Aortic stenosis Code(s): I35.0 - NONRHEUMATIC AORTIC (VALVE) STENOSIS Qualifiers: Cardiac valve disease etiology: nonrheumatic Qualified Code(s): I35.0 - Nonrheumatic aortic (valve) stenosis (8) Arrhythmia Code(s): I49.9 - CARDIAC ARRHYTHMIA, UNSPECIFIED (9) Breast CA Code(s): C50.919 - MALIGNANT NEOPLASM OF UNSP SITE OF UNSPECIFIED FEMALE BREAST Assessment/Plan TELEMETRY MONITORING CHECK K+ LEVELS IMRPOVING WILL NEED DIURETIC LIKELY LASIX DAILY NEPHROLOGY EVAL APPRECIATED IVF
[2016-07-10 22:51] LABS: URINE CREATININE 60.6 mg/dL (20-320)
[2016-07-11] MEDS: LEVOTHYROXINE NA 88 MCG TABLET (FP) PO SCH (06:28)
[2016-07-11 07:00] LABS: BASOPHIL 0.8 % (0-2.0); EOSINOPHIL 3.8 % (0-4.5); MCH 29.3 pg (25.7-33.7); MCHC 32.2 g/dl (32.0-36.0); MEAN CELL VOLUME 91.1 fl (80-96); MEAN PLT VOLUME 7.2 fl (7.5-11.1); NEUTROPHILS 68.4 % (42.8-82.8); PLATELET COUNT 378 K/MM3 (134-434); RDW 17.2 % (11.6-15.6); WHITE BLOOD COUNT 12.2 K/mm3 (4.0-10.0)
[2016-07-11 07:21] LABS: CALCIUM 8.6 mg/dL (8.5-10.1); COCKROFT - GAULT 18.53; CREATININE 1.9 mg/dL (0.55-1.02)
--- NOTE | 2016-07-11 08:05 | PN ---
Progress Note, Physician - Current Medication List Current Medications: Active Medications Acetaminophen (Tylenol -) 650 mg PO Q6H PRN PRN Reason: FEVER OR PAIN Aspirin (Ecotrin -) 81 mg PO DAILY [facility] Last Admin: 07/10/16 09:05 Dose: 81 mg Carvedilol (Coreg -) 12.5 mg PO BID [facility] Last Admin: 07/10/16 21:43 Dose: 12.5 mg Levothyroxine Sodium (Synthroid -) 88 mcg PO DAILY@0700 [facility] Last Admin: 07/11/16 06:28 Dose: 88 mcg Prednisone (Deltasone -) 20 mg PO DAILY [facility] Last Admin: 07/10/16 09:09 Dose: Not Given - Objective Vital Signs: Vital Signs Temperature 98.8 F 07/11/16 06:00 Pulse Rate 93 H 07/11/16 06:00 Respiratory Rate 17 07/11/16 06:00 Blood Pressure 153/89 07/11/16 06:00 O2 Sat by Pulse Oximetry (%) 95 07/11/16 06:00 Labs: CBC, BMP 07/11/16 05:35 07/11/16 05:35
--- NOTE | 2016-07-11 08:19 | DS ---
Physical Examination Vital Signs: Vital Signs Temperature 98.1 F 07/11/16 08:08 Pulse Rate 63 07/11/16 08:08 Respiratory Rate 20 07/11/16 08:08 Blood Pressure 148/105 07/11/16 08:08 O2 Sat by Pulse Oximetry (%) 95 07/11/16 06:00 Findings/Remarks: no complaints feels well no cp or sob Cardiovascular: Yes: Regular Rate and Rhythm Respiratory: Yes: Regular, CTA Bilaterally Gastrointestinal: Yes: Normal Bowel Sounds, Soft. No: Tenderness Edema: No Labs: CBC, BMP 07/11/16 05:35 07/11/16 05:35 Discharge Summary Reason For Visit: RENALINSUFFICIENCY HYPERKALEMIA Current Active Problems Hyperkalemia (Acute) Renal insufficiency (Acute) Hospital Course: This patient is a 76 yo F h/o Aortic stenosis, CAD s/p PCI and stent, HTN, HLD, Pulmonary HTN, Small cell carcinoma dx 4-5 years ago, h/o renal insufficiency who presents to the ER with a complaint of elevated potassium Pt was seen by her PMD yesterday, labs were checked (he has been closely monitoring her potassium) They received a call today that her potassium was elevated Pt denies chest pain, shortness of breath, nausea, vomiting or diarrhea She has been eating at her baseline No other complaints History Source: Patient - Past Medical History Cardiovascular: Yes: Aortic Stenosis, CAD (with coronary stenting), HTN, Hyperlipdemia, Mitral Insufficiency, Pulmonary Hypertension Pulmonary: Yes: Cancer (Chemothrerapy for small cell carcinoma- Dr Simpson), COPD Gastrointestinal: Yes: Diverticulosis, Other (Breast lumpectomy) Renal/: Yes: Renal Failure, Renal Inusuff ...: No Heme/Onc: Yes: Cancer Psych: Yes: Anxiety Musculoskeletal: Yes: Chronic low back pain, Osteoarthritis Endocrine: Yes: Hypothyroidism, Osteopenia - Past Surgical History Past Surgical History: Yes: Laminectomy (cervical ', lumbar '), Stent, Tonsillectomy, Tubal Ligation - Smoking History Smoking history: Former smoker - Problems (1) Hyperkalemia resolved k 4.7 Code(s): E87.5 - HYPERKALEMIA (2) Renal insufficiency improved at baseline Code(s): N28.9 - DISORDER OF KIDNEY AND URETER, UNSPECIFIED (3) ASHD (arteriosclerotic heart disease) no cp Code(s): I25.10 - ATHSCL HEART DISEASE OF [place] CORONARY ARTERY W/O ANG PCTRS (4) Acute kidney failure improved monitor Code(s): N17.9 - ACUTE KIDNEY FAILURE, UNSPECIFIED Qualifiers: Acute renal failure type: with other specified pathological lesion Qualified Code(s): N17.8 - Other acute kidney failure (5) Acute on chronic renal failure improved monitor Code(s): N17.9 - ACUTE KIDNEY FAILURE, UNSPECIFIED N18.9 - CHRONIC KIDNEY DISEASE, UNSPECIFIED (6) Anemia due to ckd Code(s): D64.9 - ANEMIA, UNSPECIFIED Qualifiers: Anemia type: due to other cause Other causes of anemia: chronic disease , kidney (7) Aortic stenosis monitor Code(s): I35.0 - NONRHEUMATIC AORTIC (VALVE) STENOSIS Qualifiers: Cardiac valve disease etiology: nonrheumatic Qualified Code(s): I35.0 - Nonrheumatic aortic (valve) stenosis (8) htn increase coreg 12.5 tid add amlodipine 2.5 (9) Breast CA Code(s): C50.919 - MALIGNANT NEOPLASM OF UNSP SITE OF UNSPECIFIED FEMALE BREAST Condition: Stable - Instructions Referrals: Isaiah Thompson MD [Primary Care Provider] - - Home Medications Comprehensive Discharge Medication List: Ambulatory Orders Citalopram Hydrobromide [Citalopram HBr] 40 mg PO DAILY 11/12/15 Cholecalciferol (Vitamin D3) [Vitamin D -] 1,000 unit PO DAILY 01/07/16 Albuterol 0.083% Nebulizer Heena [Ventolin 0.083% Nebulizer Soln -] 1 amp NEB Q4H PRN #0 amp 01/26/16 Levothyroxine [Synthroid -] 88 mcg PO DAILY@0700 03/07/16 Aspirin Coated [Ecotrin -] 81 mg PO DAILY tablet.ec 04/01/16 Carvedilol [Coreg -] 12.5 mg PO BID #30 tablet 04/01/16
[2016-07-11] MEDS ORDERED: CARVEDILOL 12.5 MG TABLET (FP) PO ONE (09:15)
[2016-07-11] MEDS: predniSONE 20 MG TABLET (UD) PO SCH (09:28)
[2016-07-11] MEDS: ASPIRIN COATED 81 MG TABLET.EC PO SCH (09:29)
[2016-07-11] MEDS ORDERED: amLODIPine BESYLATE 2.5 MG TABLET (FP) PO SCH (10:00)
--- NOTE | 2016-07-11 10:42 | EKG ---
Test Reason : Blood Pressure : / mmHG Vent. Rate : 099 BPM Atrial Rate : 099 BPM P-R Int : 142 ms QRS Dur : 082 ms QT Int : 310 ms P-R-T Axes : -13 009 042 degrees QTc Int : 397 ms SINUS RHYTHM WITH OCCASIONAL PREMATURE VENTRICULAR COMPLEXES ANTERIOR INFARCT , AGE UNDETERMINED ABNORMAL ECG WHEN COMPARED WITH ECG OF 28-MAR-2016 16:19, NO SIGNIFICANT CHANGE WAS FOUND Confirmed by CHYNA LOPES, ANTONY ([id number]) on 07/11/2016 10:42:33 AM Referred By: Confirmed By:ANTONY CLEMENTE MD
[2016-07-11] MEDS: CARVEDILOL 12.5 MG TABLET (FP) PO SCH ×2 (14:17→21:26)
--- NOTE | 2016-07-11 16:08 | PN ---
Progress Note, Physician History of Present Illness: Pt seen and examined at bedside. She is awake and alert. She denies shortness of breath. She denies palpitations. She is eager to go home. - Current Medication List Current Medications: Active Medications Acetaminophen (Tylenol -) 650 mg PO Q6H PRN PRN Reason: FEVER OR PAIN Amlodipine Besylate (Norvasc -) 2.5 mg PO DAILY [facility] Last Admin: 07/11/16 09:29 Dose: 2.5 mg Aspirin (Ecotrin -) 81 mg PO DAILY [facility] Last Admin: 07/11/16 09:29 Dose: 81 mg Carvedilol (Coreg -) 12.5 mg PO TID [facility] Last Admin: 07/11/16 14:17 Dose: 12.5 mg Levothyroxine Sodium (Synthroid -) 88 mcg PO DAILY@0700 [facility] Last Admin: 07/11/16 06:28 Dose: 88 mcg Prednisone (Deltasone -) 20 mg PO DAILY [facility] Last Admin: 07/11/16 09:28 Dose: 20 mg - Objective Vital Signs: Vital Signs Temperature 98.1 F 07/11/16 13:11 Pulse Rate 90 07/11/16 13:11 Respiratory Rate 20 07/11/16 13:11 Blood Pressure 137/80 07/11/16 13:11 O2 Sat by Pulse Oximetry (%) 92 L 07/11/16 08:00 Constitutional: Yes: Calm Eyes: Yes: Conjunctiva Clear HENT: Yes: Atraumatic Neck: Yes: Supple Cardiovascular: Yes: S1, S2 Respiratory: Yes: On Nasal O2, Wheezes Gastrointestinal: Yes: Soft Genitourinary: Yes: WNL Edema: No Neurological: Yes: Oriented Psychiatric: Yes: Oriented Labs: CBC, BMP 07/11/16 05:35 07/11/16 05:35 Problem List - Problems (1) Hyperkalemia Code(s): E87.5 - HYPERKALEMIA (2) Renal insufficiency Code(s): N28.9 - DISORDER OF KIDNEY AND URETER, UNSPECIFIED (3) Acute kidney failure Code(s): N17.9 - ACUTE KIDNEY FAILURE, UNSPECIFIED Qualifiers: Acute renal failure type: with other specified pathological lesion Qualified Code(s): N17.8 - Other acute kidney failure (4) Acute on chronic renal failure Code(s): N17.9 - ACUTE KIDNEY FAILURE, UNSPECIFIED N18.9 - CHRONIC KIDNEY DISEASE, UNSPECIFIED Assessment/Plan Current Medications Generic Name Dose Route Start Last Admin Trade Name Freani PRN Reason Stop Dose Admin Acetaminophen 650 mg 07/09/16 18:36 Tylenol - PO Q6H PRN FEVER OR PAIN Amlodipine Besylate 2.5 mg 07/11/16 10:00 07/11/16 09:29 Norvasc - PO 2.5 mg DAILY NURIS Administration Aspirin 81 mg 07/10/16 10:00 07/11/16 09:29 Ecotrin - PO 81 mg DAILY NURIS Administration Carvedilol 12.5 mg 07/11/16 14:00 07/11/16 14:17 Coreg - PO 12.5 mg TID NURIS Administration Levothyroxine Sodium 88 mcg 07/10/16 07:00 07/11/16 06:28 Synthroid - PO 88 mcg DAILY@0700 NURIS Administration Prednisone 20 mg 07/10/16 10:00 07/11/16 09:28 Deltasone - PO 20 mg DAILY NURIS Administration Impression 1. CKD 2. FRANK 3. hyperkalemia 4. CAD with cardiac stents 5. HTN 6. Hyperlipidemia 7. Hypothyroidism 8. H/O Breast 9. Lung Ca 10. Anemia Plan - renal function is improving - potassium is improved - discussed low potassium diet - pt will follow with her assistant corporation counsel in the community - pt will need further outpt follow up and monitoring. I recommend that she follows with nephrology this week to evaluate renal function and potassium level. Dr Schilling
[2016-07-12] MEDS: CARVEDILOL 12.5 MG TABLET (FP) PO SCH (05:33)
[2016-07-12] MEDS: LEVOTHYROXINE NA 88 MCG TABLET (FP) PO SCH (06:10)
--- NOTE | 2016-07-12 08:05 | DS ---
Physical Examination Vital Signs: Vital Signs Temperature 98.4 F 07/12/16 06:00 Pulse Rate 112 H 07/12/16 06:00 Respiratory Rate 20 07/12/16 06:00 Blood Pressure 155/96 07/12/16 06:00 O2 Sat by Pulse Oximetry (%) 94 L 07/11/16 22:00 Findings/Remarks: no complaints Cardiovascular: Yes: S1, S2 Respiratory: Yes: Regular, CTA Bilaterally Gastrointestinal: Yes: Normal Bowel Sounds, Soft Labs: CBC, BMP 07/11/16 05:35 07/11/16 05:35 Discharge Summary Reason For Visit: RENALINSUFFICIENCY HYPERKALEMIA Current Active Problems Hyperkalemia (Acute) Renal insufficiency (Acute) Hospital Course: This patient is a 76 yo F h/o Aortic stenosis, CAD s/p PCI and stent, HTN, HLD, Pulmonary HTN, Small cell carcinoma dx 4-5 years ago, h/o renal insufficiency who presents to the ER with a complaint of elevated potassium Pt was seen by her PMD yesterday, labs were checked (he has been closely monitoring her potassium) They received a call today that her potassium was elevated Pt denies chest pain, shortness of breath, nausea, vomiting or diarrhea She has been eating at her baseline No other complaints History Source: Patient - Past Medical History Cardiovascular: Yes: Aortic Stenosis, CAD (with coronary stenting), HTN, Hyperlipdemia, Mitral Insufficiency, Pulmonary Hypertension Pulmonary: Yes: Cancer (Chemothrerapy for small cell carcinoma- Dr Simpson), COPD Gastrointestinal: Yes: Diverticulosis, Other (Breast lumpectomy) Renal/: Yes: Renal Failure, Renal Inusuff ...: No Heme/Onc: Yes: Cancer Psych: Yes: Anxiety Musculoskeletal: Yes: Chronic low back pain, Osteoarthritis Endocrine: Yes: Hypothyroidism, Osteopenia - Past Surgical History Past Surgical History: Yes: Laminectomy (cervical ', lumbar '), Stent, Tonsillectomy, Tubal Ligation - Smoking History Smoking history: Former smoker - Problems (1) Hyperkalemia resolved k 4.7 Code(s): E87.5 - HYPERKALEMIA (2) Renal insufficiency improved at baseline Code(s): N28.9 - DISORDER OF KIDNEY AND URETER, UNSPECIFIED (3) ASHD (arteriosclerotic heart disease) no cp Code(s): I25.10 - ATHSCL HEART DISEASE OF [place] CORONARY ARTERY W/O ANG PCTRS (4) Acute kidney failure improved monitor Code(s): N17.9 - ACUTE KIDNEY FAILURE, UNSPECIFIED Qualifiers: Acute renal failure type: with other specified pathological lesion Qualified Code(s): N17.8 - Other acute kidney failure (5) Acute on chronic renal failure improved monitor Code(s): N17.9 - ACUTE KIDNEY FAILURE, UNSPECIFIED N18.9 - CHRONIC KIDNEY DISEASE, UNSPECIFIED (6) Anemia due to ckd Code(s): D64.9 - ANEMIA, UNSPECIFIED Qualifiers: Anemia type: due to other cause Other causes of anemia: chronic disease , kidney (7) Aortic stenosis monitor Code(s): I35.0 - NONRHEUMATIC AORTIC (VALVE) STENOSIS Qualifiers: Cardiac valve disease etiology: nonrheumatic Qualified Code(s): I35.0 - Nonrheumatic aortic (valve) stenosis (8) htn increase coreg 25 bid add amlodipine 5 (9) Breast CA Code(s): C50.919 - MALIGNANT NEOPLASM OF UNSP SITE OF UNSPECIFIED FEMALE BREAST Condition: Stable - Instructions Referrals: Isaiah Thompson MD [Primary Care Provider] - - Home Medications Comprehensive Discharge Medication List: Ambulatory Orders Citalopram Hydrobromide [Citalopram HBr] 40 mg PO DAILY 11/12/15 Cholecalciferol (Vitamin D3) [Vitamin D -] 1,000 unit PO DAILY 01/07/16 Albuterol 0.083% Nebulizer Heena [Ventolin 0.083% Nebulizer Soln -] 1 amp NEB Q4H PRN #0 amp 01/26/16 Levothyroxine [Synthroid -] 88 mcg PO DAILY@0700 03/07/16 Aspirin Coated [Ecotrin -] 81 mg PO DAILY tablet.ec 04/01/16 Carvedilol [Coreg -] 12.5 mg PO BID #30 tablet 04/01/16
[2016-07-12 08:15] VITALS: TEMP 98.1
[2016-07-12] MEDS: predniSONE 20 MG TABLET (UD) PO SCH (09:03)
[2016-07-12] MEDS: ASPIRIN COATED 81 MG TABLET.EC PO SCH (09:03)
[2016-07-12] MEDS ORDERED: CARVEDILOL 25 MG TABLET (FP) PO SCH (10:00)
[2016-07-12] MEDS ORDERED: amLODIPine BESYLATE 5 MG TABLET (FP) PO SCH (10:00)
[2016-07-12 11:34] VITALS: BP 150/85; PULSE 83
--- NOTE | 2016-07-12 15:18 | PN ---
Progress Note, Physician History of Present Illness: Pt seen and examined at bedside. She was not discharged yesterday as her blood pressure was labile. She feels well today. She is eager to go home. - Objective Vital Signs: Vital Signs Temperature 98.1 F 07/12/16 08:15 Pulse Rate 83 07/12/16 11:34 Respiratory Rate 20 07/12/16 11:34 Blood Pressure 150/85 07/12/16 11:34 O2 Sat by Pulse Oximetry (%) 94 L 07/12/16 08:00 Constitutional: Yes: Calm Neck: Yes: Supple Cardiovascular: Yes: S1, S2 Respiratory: Yes: CTA Bilaterally Gastrointestinal: Yes: Soft Genitourinary: Yes: WNL Musculoskeletal: Yes: WNL Edema: No Neurological: Yes: Oriented Psychiatric: Yes: Oriented Labs: CBC, BMP 07/11/16 05:35 07/11/16 05:35 Problem List - Problems (1) Hyperkalemia Code(s): E87.5 - HYPERKALEMIA (2) Renal insufficiency Code(s): N28.9 - DISORDER OF KIDNEY AND URETER, UNSPECIFIED (3) Acute kidney failure Code(s): N17.9 - ACUTE KIDNEY FAILURE, UNSPECIFIED Qualifiers: Acute renal failure type: with other specified pathological lesion Qualified Code(s): N17.8 - Other acute kidney failure (4) Acute on chronic renal failure Code(s): N17.9 - ACUTE KIDNEY FAILURE, UNSPECIFIED N18.9 - CHRONIC KIDNEY DISEASE, UNSPECIFIED Assessment/Plan Impression 1. CKD 2. FRANK 3. hyperkalemia 4. CAD with cardiac stents 5. HTN 6. Hyperlipidemia 7. Hypothyroidism 8. H/O Breast 9. Lung Ca 10. 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
== END 2016-07-12 13:25 | disposition home health service (06) | DRG 641 ==
LOC: JER 14:30 → SUPCPDRO 14:30 → JERBED 17:03 → UNDOADMIN 17:11 → JERBED 21:13 → J4W 21:13
PROVIDERS: ADMIT Family Medicine; ATTEND Family Medicine
DX: E87.5 Hyperkalemia (principal); N17.9 Acute kidney failure, unspecified; I25.10 Atherosclerotic heart disease of native coronary artery without angina pectoris; J44.9 Chronic obstructive pulmonary disease, unspecified; I35.0 Nonrheumatic aortic (valve) stenosis; E78.5 Hyperlipidemia, unspecified; I27.2 Other secondary pulmonary hypertension; E03.9 Hypothyroidism, unspecified; M54.5 Low back pain; K57.90 Diverticulosis of intestine, part unspecified, without perforation or abscess without bleeding; I49.9 Cardiac arrhythmia, unspecified; D64.9 Anemia, unspecified; I12.9 Hypertensive chronic kidney disease with stage 1 through stage 4 chronic kidney disease, or unspecified chronic kidney disease; N18.9 Chronic kidney disease, unspecified; F41.9 Anxiety disorder, unspecified; Z85.118 Personal history of other malignant neoplasm of bronchus and lung; Z85.3 Personal history of malignant neoplasm of breast; Z95.5 Presence of coronary angioplasty implant and graft; Z87.891 Personal history of nicotine dependence
CPT/HCPCS: 36415; 71010-TC; 76775-TC; 76856-TC; 80048; 80053; 81003; 82570; 84156; 85025; 85027; 87040; 87086; 93005; 93010; 99282-25

== ENCOUNTER 2016-07-26 17:45 | Inpatient (IN) | payer OTHER, MEDICARE ==
[2016-07-26] MEDS ORDERED: BACITRACIN 0.9 GM PACKET ONE (18:16)
--- NOTE | 2016-07-26 18:41 | PDOC ---
History of Present Illness - History of Present Illness Initial Comments: 07/26/16 23:21 Patient is a 76 year old female with significant medical hx of aortic stenosis, CAD s/p stent and PCI, HTN, HLD, mitral insufficiency, pulmonary HTN, COPD, small cell carcinoma treated with chemotherapy, lung CA O2 dependent, renal failure, chronic lower back pain, and hypothyroidism who is presenting to the ED via EMS s/p fall. The patient states shes been having weakness and multiple falls over the past week. Today she fell down onto her left side after trying to stand up, sustaining a 10cm avulsive laceration to her left forearm. The patient denies any head trauma, chest pain, shortness of breath, dizziness, or LOC. Recently discharged from admission on 07/12/16 for hyperkalemia. Surgical Hx: Laminectomy, stent, tonsillectomy, tubal ligation PCP: John Reyes MD <Madisyn Mejia - Last Filed: 07/27/16 02:10> <Nanette Jefferson - Last Filed: 07/27/16 04:02> <Ailyn Vincent - Last Filed: 07/27/16 04:37> - General Chief Complaint: Injury Stated Complaint: FALL/INJURY Time Seen by Provider: 07/26/16 18:06 Past History <Madisyn Mejia - Last Filed: 07/27/16 02:10> <Nanette Jefferson - Last Filed: 07/27/16 04:02> - Past Medical History Anemia: Yes Asthma: No Cancer: Yes (Rt breast CA and lung CA - 2 primaries) Cardiac Disorders: Yes (ASHD S/P STENT) CVA: No COPD: Yes (O2 3L NC PRN.) CHF: No Dementia: No Diabetes: No GI Disorders: No Disorders: Yes (uti,renal insuff.) HTN: Yes Hypercholesterolemia: No Liver Disease: No Suicide Attempt (Hx): No Seizures: No Thyroid Disease: Yes (hypothyroidism, MULTIPLE NODULES) - Surgical History Abdominal Surgery: No Appendectomy: No Cardiac Surgery: Yes (STENT) Cholecystectomy: No Lung Surgery: Yes (LUNG BX, LUNG CA) Neurologic Surgery: No Orthopedic Surgery: Yes (CERVICAL, LUMBAR LAMINECTOMIES) - Immunization History Immunization Up to Date: Yes - Psycho/Social/Smoking Cessation Hx Anxiety: No Suicidal Ideation: No Smoking Status: Yes Smoking History: Former smoker Have you smoked in the past 12 months: No Number of Cigarettes Smoked Daily: 0 If you are a former smoker, when did you quit?: 2004 Cigars Per Day: 0 Information on smoking cessation initiated: No 'Breaking Loose' booklet given: 09/29/14 Hx Alcohol Use: No Drug/Substance Use Hx: No Substance Use Type: None Hx Substance Use Treatment: No <Ailyn Vincent - Last Filed: 07/27/16 04:37> - Past Medical History Allergies/Adverse Reactions: Allergies Allergy/AdvReac Type Severity Reaction Status Date / Time No Known Allergies Allergy Verified 07/26/16 17:51 Home Medications: Ambulatory Orders Citalopram Hydrobromide [Citalopram HBr] 40 mg PO DAILY 11/12/15 Cholecalciferol (Vitamin D3) [Vitamin D -] 1,000 unit PO DAILY 01/07/16 Levothyroxine [Synthroid -] 0.5 tab PO DAILY@0700 03/07/16 Aspirin Coated [Ecotrin -] 81 mg PO DAILY tablet.ec 04/01/16 Carvedilol [Coreg -] 25 mg PO BID #60 tablet 07/12/16 Budesonide/Formeterol Fumarate [SYMBICORT 160/4.5mcg -] 1 inh PO BID 07/26/16 Furosemide [Lasix] 40 mg PO DAILY 07/26/16 Prednisone 20 mg PO DAILY 07/26/16 Review of Systems - Review of Systems Comments:: 07/26/16 23:24 CONSTITUTIONAL: Absent: fever, chills, diaphoresis, generalized weakness, malaise, loss of appetite HEENT: Absent: rhinorrhea, nasal congestion, throat pain, throat swelling, difficulty swallowing, mouth swelling, ear pain, eye pain, visual changes CARDIOVASCULAR: Absent: chest pain, syncope, palpitations, irregular heart rate, lightheadedness , peripheral edema RESPIRATORY: Absent: cough, shortness of breath, dyspnea with exertion, orthopnea, wheezing, stridor, hemoptysis GASTROINTESTINAL: Absent: abdominal pain, abdominal distension, nausea, vomiting, diarrhea, constipation, melena, hematochezia GENITOURINARY: Absent: dysuria, frequency, urgency, hesitancy, hematuria, flank pain, genital pain MUSCULOSKELETAL: Absent: myalgia, arthralgia, joint swelling SKIN: Present: laceration left forearm Absent: rash, itching, pallor HEMATOLOGIC/IMMUNOLOGIC: Absent: easy bleeding, easy bruising, lymphadenopathy, frequent infections ENDOCRINE: Absent: unexplained weight gain, unexplained weight loss, heat intolerance, cold intolerance NEUROLOGIC: Absent: headache, focal weakness or paresthesia, dizziness, unsteady gait, seizure, mental status changes, bladder or bowel incontinence. PSYCHIATRIC: Absent: anxiety, depression, suicidal or homicidal ideation, hallucinations <Madisyn Mejia - Last Filed: 07/27/16 02:10> *Physical Exam - Vital Signs Last Vital Signs Temp Pulse Resp BP Pulse Ox 98.8 F 100 H 20 120/70 96 07/26/16 20:11 07/26/16 21:30 07/26/16 21:30 07/26/16 21:30 07/26/16 21:30 - Physical Exam Comments: 07/26/16 23:24 GENERAL: Cachectic. Awake and alert. No acute distress. HEENT: Normocephalic, atraumatic. PERRLA, EOMI. No conjunctival pallor. Sclera are non- icteric. Moist mucous membranes. Oropharynx is clear. NECK: Supple. Full ROM. No JVD. Carotid pulses 2+ and symmetric, without bruits. No thyromegaly. No lymphadenopathy. CARDIOVASCULAR: Tachycardic. Aortic stenosis. Murmur. No rubs or gallops. Distal pulses are 2+ and symmetric. PULMONARY: Decreased breath sounds. No evidence of respiratory distress No wheezing, rales or rhonchi. ABDOMINAL: Flat. Soft. Non-tender. Non-distended. No rebound or guarding. No organomegaly. Normoactive bowel sounds. MUSCULOSKELETAL: Normal range of motion at all joints. No bony deformities or tenderness. No CVA tenderness. EXTREMITIES: No cyanosis. No clubbing. No edema. No calf tenderness. SKIN: 10 cm avulsive wound laceration that is macerated with a superficial skin flap. Warm and dry. Normal capillary refill. No rashes. No jaundice. NEUROLOGICAL: Alert, awake, appropriate. Moving all extremities. Can move extremities against gravity. Cranial nerves 2-12 intact. Normal speech. Gait is normal without ataxia. PSYCHIATRIC: Cooperative. Good eye contact. Appropriate mood and affect. <Madisyn Mejia - Last Filed: 07/27/16 02:10> - Vital Signs Last Vital Signs Temp Pulse Resp BP Pulse Ox 98.8 F 100 H 20 120/70 96 07/26/16 20:11 07/26/16 21:30 07/26/16 21:30 07/26/16 21:30 07/26/16 21:30 <Nanette Jefferson - Last Filed: 07/27/16 04:02> - Vital Signs Last Vital Signs Temp Pulse Resp BP Pulse Ox 97.4 F L 110 H 18 125/78 85 L 07/26/16 17:48 07/26/16 17:48 07/26/16 17:48 07/26/16 17:48 07/26/16 17:48 <Ailyn Vincent - Last Filed: 07/27/16 04:37> ED Treatment Course - LABORATORY CBC & Chemistry Diagram: 07/26/16 19:00 07/26/16 19:00 - ADDITIONAL ORDERS Additional order review: Laboratory Results 07/26/16 07/26/16 20:18 19:00 Sodium 135 L Potassium 5.2 H Chloride 102 Carbon Dioxide 27 D Anion Gap 6 L BUN 100 H D Creatinine 3.5 H D Creat Clearance w eGFR 12.70 Random Glucose 99 Calcium 9.3 Total Bilirubin 0.4 D AST 12 L ALT 14 Alkaline Phosphatase 73 Total Protein 6.6 Albumin 2.5 L Urine Color Ltyellow Urine Appearance Clear Urine pH 5.0 Ur Specific [place] <= 1.005 Urine Protein Negative Urine Glucose (UA) Negative Urine Ketones Negative Urine Blood Negative Urine Nitrite Negative Urine Bilirubin Negative Urine Urobilinogen Negative Ur Leukocyte Esterase Negative 07/26/16 19:00 RBC 3.23 L MCV 90.9 MCHC 31.4 L RDW 15.5 MPV 6.8 L Neutrophils % 94.0 H D Lymphocytes % 3.0 L D Monocytes % 3.0 L Eosinophils % 0.0 D - RADIOLOGY Radiograph Interpretation: 07/27/16 02:10 Weld Fitter: (jeramie) Report Date: 07/26/2016 23:59:00 Report Status: Preliminary Begin of Report Content Referring Physician: Ailyn Vincent Patient Name: Eda Jansen THIS IS A PRELIMINARY REPORT FROM [facility] IMAGES: 5 EXAM DATE AND TIME: 2016-07-26 23:59:11.0 EXAM: X-RAY LEFT WRIST No definite acute fracture. Chronic fractures ulnar styloid and distal raial metaphysis. Degenerative changes wrist. THIS DOCUMENT HAS BEEN ELECTRONICALLY SIGNED Kinza Vega M.D. 07/27/2016 02:07 NITIN Carrillo Please call [facility] [phone]) with questions. End of Report Content <Madisyn Mejia - Last Filed: 07/27/16 02:10> - LABORATORY CBC & Chemistry Diagram: 07/27/16 02:30 07/26/16 19:00 - ADDITIONAL ORDERS Additional order review: Laboratory Results 07/26/16 07/26/16 20:18 19:00 Sodium 135 L Potassium 5.2 H Chloride 102 Carbon Dioxide 27 D Anion Gap 6 L BUN 100 H D Creatinine 3.5 H D Creat Clearance w eGFR 12.70 Random Glucose 99 Calcium 9.3 Total Bilirubin 0.4 D AST 12 L ALT 14 Alkaline Phosphatase 73 Total Protein 6.6 Albumin 2.5 L Urine Color Ltyellow Urine Appearance Clear Urine pH 5.0 Ur Specific [place] <= 1.005 Urine Protein Negative Urine Glucose (UA) Negative Urine Ketones Negative Urine Blood Negative Urine Nitrite Negative Urine Bilirubin Negative Urine Urobilinogen Negative Ur Leukocyte Esterase Negative 07/27/16 07/26/16 02:30 19:00 RBC 3.34 L 3.23 L MCV 90.2 90.9 MCHC 31.6 L 31.4 L RDW 15.4 15.5 MPV 6.9 L 6.8 L Neutrophils % Y 94.0 H D Lymphocytes % Y 3.0 L D Monocytes % 3.0 L Eosinophils % 0.0 D - Medications Given in the ED: ED Medications Discontinued Medications Generic Name Dose Route Start Last Admin Trade Name Freq PRN Reason Stop Dose Admin Piperacillin Sod/Tazobactam 50 mls @ 100 mls/hr 07/27/16 02:58 07/27/16 03:03 Sod 3.375 gm/ Dextrose IVPB 07/27/16 03:27 100 mls/hr ONCE ONE Administration Protocol <Nanette Jefferson - Last Filed: 07/27/16 04:02> - LABORATORY CBC & Chemistry Diagram: 07/27/16 02:30 07/26/16 19:00 <Ailyn Vincent - Last Filed: 07/27/16 04:37> Medical Decision Making - Medical Decision Making 07/27/16 03:[address] Isaiah Thompson covering for Dr. John Reyes (via answering service) at 3 :49 Awaiting call back 07/27/16 04:03 Second call placed to Dr. Thompson (via answering service) at 4:03 Awaiting call back <Nanette Jefferson - Last Filed: 07/27/16 04:02> *DC/Admit/Observation/Transfer - Attestations Scribe Attestion: 07/26/16 23:27 Documentation prepared by Madisyn Mejia, acting as medical lab tech instructor for Ailyn Vincent MD. <Madisyn Mejia - Last Filed: 07/27/16 02:10> <Nanette Jefferson - Last Filed: 07/27/16 04:02> - Discharge Dispostion Admit: Yes <Ailyn Vincent - Last Filed: 07/27/16 04:37> Diagnosis at time of Disposition: Hypoxia, COPD (chronic obstructive pulmonary disease), Status post fall, Hyperkalemia, Weakness Leukocytosis Qualifiers: Leukocytosis type: other Qualified Code(s): D72.828 - Other elevated white blood cell count Pneumonia Qualifiers: Pneumonia type: due to unspecified organism Laterality: right Lung location: lower lobe of lung Qualified Code(s): J18.1 - Lobar pneumonia, unspecified organism Acute on chronic renal failure Qualifiers: Acute renal failure type: unspecified Chronic kidney disease stage: unspecified stage Qualified Code(s): N17.9 - Acute kidney failure, unspecified - Referrals
[2016-07-26 19:31] LABS: MCH 28.5 pg (25.7-33.7); MCHC 31.4 g/dl (32.0-36.0); MEAN CELL VOLUME 90.9 fl (80-96); MEAN PLT VOLUME 6.8 fl (7.5-11.1); PLATELET COUNT 380 K/MM3 (134-434); RDW 15.5 % (11.6-15.6)
[2016-07-26 19:48] LABS: ALBUMIN 2.5 g/dl (3.4-5.0); BILIRUBIN,TOTAL 0.4 mg/dL (0.2-1.0); CALCIUM 9.3 mg/dL (8.5-10.1); COCKROFT - GAULT 9.8855; CREATININE 3.5 mg/dL (0.55-1.02); TOT PROT 6.6 g/dl (6.4-8.2)
[2016-07-26 19:53] LABS: WHITE BLOOD COUNT 35.1 K/mm3 (4.0-10.0)
[2016-07-26 20:55] LABS: URINE APPEARANCE CLEAR; URINE BILIRUBIN NEGATIVE (NEGATIVE); URINE BLOOD NEGATIVE (NEGATIVE); URINE COLOR LTYELLOW; URINE GLUCOSE (UA) NEGATIVE (NEGATIVE); URINE KETONE NEGATIVE (NEGATIVE); URINE LEUK ESTERASE NEGATIVE (NEGATIVE); URINE NITRITE NEGATIVE (NEGATIVE); URINE PROTEIN NEGATIVE (NEGATIVE); URINE UROBILINOGEN NEGATIVE E.U./dl (0.2-1.0)
[2016-07-27 02:42] LABS: MCH 28.5 pg (25.7-33.7); MCHC 31.6 g/dl (32.0-36.0); MEAN CELL VOLUME 90.2 fl (80-96); MEAN PLT VOLUME 6.9 fl (7.5-11.1); PLATELET COUNT 410 K/MM3 (134-434); RDW 15.4 % (11.6-15.6)
[2016-07-27 02:50] LABS: WHITE BLOOD COUNT 38.4 K/mm3 (4.0-10.0)
[2016-07-27] MEDS ORDERED: PIPERACILLIN/TAZOB 3.375 GM 3.375 GM in DEXTROSE 5%-WATER - 50 ML IVPB ONE (02:58)
[2016-07-27] MEDS ORDERED: PIPERACILLIN/TAZOB 3.375 GM 50 ML IVPB ONE (03:05)
[2016-07-27 05:15] LABS: PLATELET ESTIMATE ADEQUATE (NORMAL)
[2016-07-27 05:53] LABS: TROPONIN I < 0.02 ng/ml (0.00-0.05)
[2016-07-27 06:30] LABS: ALBUMIN 2.5 g/dl (3.4-5.0); BILIRUBIN,TOTAL 0.3 mg/dL (0.2-1.0); COCKROFT - GAULT 9.6135; CREATININE 3.6 mg/dL (0.55-1.02); TOT PROT 6.8 g/dl (6.4-8.2)
[2016-07-27] MEDS ORDERED: oxyCODONE HCL 5 MG TABLET PO PRN (09:14)
[2016-07-27] MEDS ORDERED: LEVOFLOXACIN 500 MG IVPB 100 ML IVPB ONE ×2 (09:20→10:09)
--- NOTE | 2016-07-27 09:20 | HP ---
Admitting History and Physical - Admission History of Present Illness: 76 year old female with significant medical hx of aortic stenosis, CAD s/p stent and PCI, HTN, HLD, mitral insufficiency, pulmonary HTN, COPD, small cell carcinoma treated with chemotherapy, lung CA O2 dependent, renal failure, chronic lower back pain, and hypothyroidism who is presenting to the ED via EMS s/p fall. The patient states shes been having weakness and multiple falls over the past week. Today she fell down onto her left side after trying to stand up, sustaining a 10cm avulsive laceration to her left forearm. The patient denies any head trauma, chest pain, shortness of breath, dizziness, or LOC. Recently discharged from admission on 07/12/16 for hyperkalemia. - Past Medical History Cardiovascular: Yes: Aortic Stenosis, CAD (with coronary stenting), HTN, Hyperlipdemia, Mitral Insufficiency, Pulmonary Hypertension Pulmonary: Yes: Cancer (Chemothrerapy for small cell carcinoma- Dr Simpson), COPD Gastrointestinal: Yes: Diverticulosis, Other (Breast lumpectomy) Renal/: Yes: Renal Failure, Renal Inusuff Heme/Onc: Yes: Cancer Psych: Yes: Anxiety Musculoskeletal: Yes: Chronic low back pain, Osteoarthritis Endocrine: Yes: Hypothyroidism, Osteopenia - Past Surgical History Past Surgical History: Yes: Laminectomy (cervical ', lumbar '), Stent, Tonsillectomy, Tubal Ligation - Smoking History Smoking history: Former smoker Have you smoked in the past 12 months: No Aproximately how many cigarettes per day: 0 If you are a former smoker, when did you quit?: 2004 - Alcohol/Substance Use Hx Alcohol Use: No Date of Last Use: 02/27/81 - Social History ADL: Independent 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 History of Recent Travel: No Home Medications - Allergies Allergies/Adverse Reactions: Allergies Allergy/AdvReac Type Severity Reaction Status Date / Time No Known Allergies Allergy Verified 07/26/16 17:51 - Home Medications Home Medications: Ambulatory Orders Citalopram Hydrobromide [Citalopram HBr] 40 mg PO DAILY 11/12/15 Cholecalciferol (Vitamin D3) [Vitamin D -] 1,000 unit PO DAILY 01/07/16 Levothyroxine [Synthroid -] 0.5 tab PO DAILY@0700 03/07/16 Aspirin Coated [Ecotrin -] 81 mg PO DAILY tablet.ec 04/01/16 Carvedilol [Coreg -] 25 mg PO BID #60 tablet 07/12/16 Budesonide/Formeterol Fumarate [SYMBICORT 160/4.5mcg -] 1 inh PO BID 07/26/16 Furosemide [Lasix] 40 mg PO DAILY 07/26/16 Prednisone 20 mg PO DAILY 07/26/16 Family Disease History - Family Disease History Family Disease History: CA: Father (diffuse unknown primary), Sister ( of lung cancer), Other: Mother ( after hip fracture) Review of Systems - Review of Systems Cardiovascular: reports: Shortness of Breath. denies: Chest Pain, Palpitations Respiratory: reports: Cough, SOB, SOB on Exertion, Wheezing Gastrointestinal: denies: Abdominal Pain Genitourinary: reports: No Symptoms Musculoskeletal: reports: No Symptoms Physical Examination Vital Signs: Vital Signs Temperature 97.7 F 07/27/16 05:17 Pulse Rate 99 H 07/27/16 05:17 Respiratory Rate 20 07/27/16 05:17 Blood Pressure 134/72 07/27/16 05:17 O2 Sat by Pulse Oximetry (%) 96 07/27/16 05:29 Cardiovascular: Yes: Murmur, S1, S2 Respiratory: Yes: Diminished, Rhonchi, Wheezes Gastrointestinal: Yes: Normal Bowel Sounds, Soft Edema: No Labs: CBC, BMP 07/27/16 05:17 Imaging - Results X-ray: Report Reviewed Problem List - Problems (1) Acute on chronic renal failure Assessment/Plan: IVF MONITOR RENAL FUNCTION Code(s): N17.9 - ACUTE KIDNEY FAILURE, UNSPECIFIED N18.9 - CHRONIC KIDNEY DISEASE, UNSPECIFIED Qualifiers: Acute renal failure type: unspecified Chronic kidney disease stage: unspecified stage Qualified Code(s): N17.9 - Acute kidney failure, unspecified; N18.9 - Chronic kidney disease, unspecified (2) COPD (chronic obstructive pulmonary disease) Assessment/Plan: NEBS STEROIDS PULM Code(s): J44.9 - CHRONIC OBSTRUCTIVE PULMONARY DISEASE, UNSPECIFIED Qualifiers : COPD type: unspecified COPD Qualified Code(s): J44.9 - Chronic obstructive pulmonary disease, unspecified (3) Leukocytosis Assessment/Plan: STEROIDS AND PNEUMONIA Code(s): D72.829 - ELEVATED WHITE BLOOD CELL COUNT, UNSPECIFIED Qualifiers: Leukocytosis type: other Qualified Code(s): D72.828 - Other elevated white blood cell count (4) Pneumonia Assessment/Plan: IV ABX CULTURES CXR Code(s): J18.9 - PNEUMONIA, UNSPECIFIED ORGANISM Qualifiers: Pneumonia type: due to unspecified organism Laterality: right Lung location: lower lobe of lung Qualified Code(s): J18.1 - Lobar pneumonia, unspecified organism (5) CHF (congestive heart failure) Assessment/Plan: NO EVIDENCE OF FAILURE IVF HOLD LASIX Code(s): I50.9 - HEART FAILURE, UNSPECIFIED (6) Lung cancer Code(s): C34.90 - MALIGNANT NEOPLASM OF UNSP PART OF UNSP BRONCHUS OR LUNG Qualifiers: Lung location: unspecified part of lung
[2016-07-27] MEDS ORDERED: CARVEDILOL 25 MG TABLET (FP) PO SCH (10:00)
[2016-07-27] MEDS: DEXTROSE 5%-0.45% SALINE 1,000 ML IV SCH (10:10)
[2016-07-27 10:20] LABS: MCH 29.5 pg (25.7-33.7); MCHC 32.8 g/dl (32.0-36.0); MEAN PLT VOLUME 6.8 fl (7.5-11.1); PLATELET COUNT 398 K/MM3 (134-434); RDW 15.8 % (11.6-15.6)
[2016-07-27] MEDS ORDERED: HEPARIN NA (PORCINE) 5,000 UNITS/ML 1ML VIAL ONE (10:34)
[2016-07-27] MEDS ORDERED: CARVEDILOL 12.5 MG TABLET (FP) ONE (10:34)
[2016-07-27] MEDS ORDERED: ASPIRIN COATED 81 MG TABLET.EC ONE (10:34)
[2016-07-27 10:35] LABS: WHITE BLOOD COUNT 39.6 K/mm3 (4.0-10.0)
[2016-07-27] MEDS: ASPIRIN COATED 81 MG TABLET.EC PO SCH (10:40)
[2016-07-27] MEDS: CHOLECALCIFEROL (VITAMIN D3) 1,000 UNIT TABLET (FP) PO SCH (10:40)
[2016-07-27] MEDS: PANTOPRAZOLE 40 MG TABLET (FP) PO SCH (10:40)
[2016-07-27] MEDS: CITALOPRAM HYDROBROMIDE 20 MG TABLET (FP) PO SCH (10:40)
[2016-07-27] MEDS: HEPARIN NA (PORCINE) 5,000 UNITS/ML 1ML VIAL SQ SCH ×2 (10:40→22:07)
[2016-07-27 10:44] LABS: ANION GAP 11 (8-16); CALCIUM 9.3 mg/dL (8.5-10.1); CO2 24 mmol/L (21-32); GLUCOSE,RANDOM 89 mg/dL (74-106)
[2016-07-27 10:49] LABS: COCKROFT - GAULT 9.6135; CREATININE 3.6 mg/dL (0.55-1.02)
[2016-07-27 10:52] LABS: TROPONIN I < 0.02 ng/ml (0.00-0.05)
[2016-07-27 10:55] LABS: MAGNESIUM 3.4 mg/dL (1.8-2.4)
[2016-07-27] MEDS: BUDESONIDE/FORMETEROL FUMARATE 160/4.5 mcg INHALER IH SCH ×2 (11:21→22:09)
[2016-07-27] MEDS: ALBUTEROL SO4 2.5/IPRATROPIUM 0.5 INH SOL 3 ML VIAL.NEB. NEB SCH ×2 (12:00→18:51)
[2016-07-27] MEDS ORDERED: VANCOMYCIN 1,000 MG in DEXTROSE 5%-WATER - 250 ML IVPB ONE (12:04)
--- NOTE | 2016-07-27 12:15 | PN ---
Progress Note (short form) - Note Progress Note: ID consult dictated imp/reccd 76 year old female with COPD, CKD admitted s/p fall at home found to have elevated WBC . creatinine of 3.6 reports worsening cough, eating poorly no fevers or chills Leukocytosis ?pneumonia- will get chest ct check cultures, blood, urine, sputum, urinary antigens zosyn vancomycin one dose ct scan with acute left spenoid sinusitis will screen for cdiff as well given leukocytosis she reports having completed steroids several days ago FRANK- renal consult Problem List - Problems (1) Leukocytosis Code(s): D72.829 - ELEVATED WHITE BLOOD CELL COUNT, UNSPECIFIED Qualifiers: Leukocytosis type: other Qualified Code(s): D72.828 - Other elevated white blood cell count (2) Pneumonia Code(s): J18.9 - PNEUMONIA, UNSPECIFIED ORGANISM Qualifiers: Pneumonia type: due to unspecified organism Laterality: right Lung location: lower lobe of lung Qualified Code(s): J18.1 - Lobar pneumonia, unspecified organism (3) Acute kidney failure Code(s): N17.9 - ACUTE KIDNEY FAILURE, UNSPECIFIED Qualifiers: Acute renal failure type: with other specified pathological lesion Qualified Code(s): N17.8 - Other acute kidney failure (4) COPD (chronic obstructive pulmonary disease) Code(s): J44.9 - CHRONIC OBSTRUCTIVE PULMONARY DISEASE, UNSPECIFIED Qualifiers : COPD type: unspecified COPD Qualified Code(s): J44.9 - Chronic obstructive pulmonary disease, unspecified
[2016-07-27] MEDS ORDERED: VANCOMYCIN 750 MG in DEXTROSE 5%-WATER - 250 ML IVPB ONE (12:22)
[2016-07-27 12:30] LABS: PLATELET ESTIMATE ADEQUATE (NORMAL)
--- NOTE | 2016-07-27 12:48 | CONS ---
DATE OF CONSULTATION: 07/27/2016 REQUESTED BY: Isaiah Thompson MD This is a 76-year-old woman, extensive past medical history including prior malignancy, breast and lung cancer. She has COPD and is on home oxygen. She was recently in this hospital earlier this month, when she was admitted with hyperkalemia. She was here from the 09 of July until the . Her hyperkalemia resolved during that admission. She had some renal insufficiency that resolved with hydration. She was discharged on a prednisone taper, which she completed. She was discharged on the . She presented to the emergency room on the , after she fell at home. She did not lose consciousness. She uses a walker. She states she falls frequently, and she was brought in for further evaluation. She denies any head trauma or chest pain. She has chronic shortness of breath, which she reports is worse. She reports cough that was productive at home but is no longer productive. She denies any fevers or chills. She reports frequent falls. She has had no nausea or vomiting. She has a very poor appetite and has been eating poorly at home. She reports having completed her prednisone. Per the prior discharge summary and prior admission, she was not on any antibiotics during that admission. When asked if she has diarrhea, she reports that she did have diarrhea at home but it has subsequently stopped. She last received some Levaquin in March. This last admission for 72 hours, she did not receive any antibiotics. In the emergency room, she was noted on routine labs to have an elevated white count of 35,000. She was noted to be in acute renal failure as well, with a creatinine of 3.6. Her cultures were sent. She was given a dose of Levaquin and Zosyn, and I am asked to see her for further evaluation. She is resting comfortably. She has a moist cough. Her past medical history is notable for aortic stenosis; coronary artery disease, she has been stented in the past; hypertension; hyperlipidemia; mitral insufficiency; pulmonary hypertension; and COPD. She is on home oxygen. She has had cancer in the past and had chemotherapy. She still has a left-sided port. She apparently has a history of breast cancer as well in the past. She has a history of renal insufficiency with a baseline creatinine of about 1.9 to 2. Surgical history is notable for laminectomy, cervical, in 1998; lumbar in 1996. She has had a tonsillectomy and a tubal ligation, and she has a left-sided port. She has no known drug allergies. Her discharge medications include Tylenol; albuterol nebulizer; Norvasc; aspirin; Coreg; prednisone taper, which she had completed; vitamin D3; Celexa; and Synthroid. Family history is noncontributory. SOCIAL HISTORY: She is . She lives at home with her , who she reports is in good health. She uses a walker to ambulate. REVIEW OF SYSTEMS: As per HPI. PHYSICAL EXAMINATION: Vital Signs: Her temperature is 97.7. Pulse of 98. Blood pressure 125/66. She is saturating 96% on 4 L. HEENT: She is normocephalic. Her eyes are anicteric. She has no thrush. General: She is a very thin woman. Neck: Supple. Lungs: Scattered rhonchi. Heart: Regular rate and rhythm. She has a harsh 2/6 systolic murmur. Abdomen: Scaphoid and soft, nontender. Extremities: Without edema. Skin: She has some evidence of ecchymoses on her legs from prior fall. She has no rash. Her labs are notable for a white count of 39.6, hemoglobin 9.4, platelets 398, INR is 1, BUN 102, creatinine 3.6. Urinalysis is negative. Urine and blood cultures are pending. Chest x-ray reveals increased markings with I suspect throughout when compared to her most recent films, with I think perhaps evidence of a right lower lobe infiltrate. In summary, this is a 76-year-old woman recently admitted for 3 days, now re-admitted with profound leukocytosis, status post fall with generalized weakness, and acute kidney injury, with demonstrated poor oral intake. Concerns would be for sepsis in this setting. Would agree with cultures. The only complaint she has is a cough, and her chest x-ray to me appears to be worsening. I will speak with Pulmonary, who I suspect knows her well, and consider CAT scan of her chest at this time. I would treat her for pneumonia. Would give her a dose of vancomycin as well, given her recent admission, the profound white count, also given her poor history but possible diarrhea at home and the high white count, would send off a stool C. difficile as well. Would send a Legionella urinary antigen and a sputum culture for completeness. Would continue her on Zosyn. Would try to adjust for her renal failure. She received a dose of Levaquin this morning. Would add 1 dose of vancomycin. Further recommendations to follow based on her clinical course. FAITH MEDEROS M.D. [id number]
[2016-07-27] MEDS: PIPERACILLIN/TAZOB 2.25 GM 50 ML IVPB SCH ×2 (13:19→18:15)
--- NOTE | 2016-07-27 15:03 | CON.CARD ---
Consult Consult Specialty:: Cardiology Referred by:: Isaiah Thompson MD Reason for Consultation:: Near syncope - History of Present Illness Chief Complaint: Near syncope, fall History of Present Illness: Patient is a 76 year old female with history of CAD S/P PCI/stent, angina pectoris, diastolic left ventricular dysfunction with class 1 NYHA classification LV failure, aortic valve disease (moderate ), hypercholesterolemia, pulmonary hypertension, HTN/HCVD, lung CA post chemotherapy, breast CA post chemotherapy, COPD, CKD and diverticular disease. She is admitted with dizziness, anorexia, unsteady gait, weakness and multiple falls without true syncope. She denies chest pain, shortness of breath or palpitations, paroxysmal nocturnal dyspnea or orthopnea or LE edema, reports dry cough, elevated WBC. - History Source History Provided By: Patient Limitations to Obtaining History: No Limitations - Past Medical History Cardio/Vascular: Yes: Aortic Stenosis, CAD (with coronary stenting), HTN, Hyperlipdemia, Mitral Insufficiency, Pulmonary Hypertension Pulmonary: Yes: Cancer (Chemothrerapy for small cell carcinoma- Dr Simpson), COPD Gastrointestinal: Yes: Diverticulosis, Other (Breast lumpectomy) Renal/: Yes: Renal Failure, Renal Inusuff Psych: Yes: Anxiety Musculoskeletal: Yes: Chronic low back pain, Osteoarthritis Endocrine: Yes: Hypothyroidism, Osteopenia - Past Surgical History Past Surgical History: Yes: Laminectomy (cervical ', lumbar '), Stent, Tonsillectomy, Tubal Ligation - Alcohol/Substance Use Hx Alcohol Use: No Date of Last Use: 02/27/81 - Smoking History Smoking history: Former smoker Have you smoked in the past 12 months: No Aproximately how many cigarettes per day: 0 If you are a former smoker, when did you quit?: 2004 - Social History Usual Living Arrangement: With Spouse ADL: Independent 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 History of Recent Travel: No Home Medications - Allergies Allergies/Adverse Reactions: Allergies Allergy/AdvReac Type Severity Reaction Status Date / Time No Known Allergies Allergy Verified 07/26/16 17:51 - Home Medications Home Medications: Ambulatory Orders Citalopram Hydrobromide [Citalopram HBr] 40 mg PO DAILY 11/12/15 Cholecalciferol (Vitamin D3) [Vitamin D -] 1,000 unit PO DAILY 01/07/16 Levothyroxine [Synthroid -] 0.5 tab PO DAILY@0700 03/07/16 Aspirin Coated [Ecotrin -] 81 mg PO DAILY tablet.ec 04/01/16 Carvedilol [Coreg -] 25 mg PO BID #60 tablet 07/12/16 Budesonide/Formeterol Fumarate [SYMBICORT 160/4.5mcg -] 1 inh PO BID 07/26/16 Furosemide [Lasix] 40 mg PO DAILY 07/26/16 Prednisone 20 mg PO DAILY 07/26/16 Family Disease History - Family Disease History Family Disease History: CA: Father (diffuse unknown primary), Sister ( of lung cancer), Other: Mother ( after hip fracture) Review of Systems - Review of Systems Respiratory: reports: Cough Neurological: reports: Dizziness Vital Signs: Vital Signs Temperature 97.8 F 07/27/16 12:20 Pulse Rate 100 H 07/27/16 12:20 Respiratory Rate 20 07/27/16 12:20 Blood Pressure 140/71 07/27/16 12:20 O2 Sat by Pulse Oximetry (%) 96 07/27/16 12:20 Constitutional: Yes: No Distress, Calm, Thin Respiratory: Yes: Regular, Diminished Gastrointestinal: Yes: Normal Bowel Sounds, Soft Cardiovascular: Yes: Regular Rate and Rhythm JVD: No Carotid Bruit: No Heart Sounds: Yes: S1, S2 Murmur: Yes: Systolic Murmur, Grade 2 Edema: No - Other Data Labs, Other Data: CBC, BMP 07/27/16 10:00 07/27/16 10:00 Troponin, BNP 07/27/16 07/27/16 07/27/16: 10:00 10:00 Troponin I < 0.02 < 0.02 Cancelled Troponin, BNP 07/27/16 07/27/16 07/27/16: 10:00 10:00 Troponin I < 0.02 < 0.[address] @ 103 min criteria LVH Imaging - Results Cat Scan: Report Reviewed (Chest CT: Mod-severe COPD, RLL PNA) Problem List - Problems (1) Acute on chronic renal failure Code(s): N17.9 - ACUTE KIDNEY FAILURE, UNSPECIFIED N18.9 - CHRONIC KIDNEY DISEASE, UNSPECIFIED Qualifiers: Acute renal failure type: unspecified Chronic kidney disease stage: unspecified stage Qualified Code(s): N17.9 - Acute kidney failure, unspecified; N18.9 - Chronic kidney disease, unspecified (2) COPD (chronic obstructive pulmonary disease) Code(s): J44.9 - CHRONIC OBSTRUCTIVE PULMONARY DISEASE, UNSPECIFIED Qualifiers : COPD type: unspecified COPD Qualified Code(s): J44.9 - Chronic obstructive pulmonary disease, unspecified (3) Chronic hypoxemic respiratory failure Code(s): J96.11 - CHRONIC RESPIRATORY FAILURE WITH HYPOXIA (4) Leukocytosis Code(s): D72.829 - ELEVATED WHITE BLOOD CELL COUNT, UNSPECIFIED Qualifiers: Leukocytosis type: other Qualified Code(s): D72.828 - Other elevated white blood cell count (5) Pneumonia Code(s): J18.9 - PNEUMONIA, UNSPECIFIED ORGANISM Qualifiers: Pneumonia type: due to unspecified organism Laterality: right Lung location: lower lobe of lung Qualified Code(s): J18.1 - Lobar pneumonia, unspecified organism (6) Status post fall Code(s): Z91.89 - OT PERSONAL RISK FACTORS, NOT ELSEWHERE CLASSIFIED (7) Weakness Code(s): R53.1 - WEAKNESS (8) ASHD (arteriosclerotic heart disease) Code(s): I25.10 - ATHSCL HEART DISEASE OF [place] CORONARY ARTERY W/O ANG PCTRS (9) Anemia Code(s): D64.9 - ANEMIA, UNSPECIFIED Qualifiers: Anemia type: due to other cause Other causes of anemia: chronic disease , kidney (10) Aortic stenosis Code(s): I35.0 - NONRHEUMATIC AORTIC (VALVE) STENOSIS Qualifiers: Cardiac valve disease etiology: nonrheumatic Qualified Code(s): I35.0 - Nonrheumatic aortic (valve) stenosis (11) CAD (coronary artery disease) Code(s): I25.10 - ATHSCL HEART DISEASE OF [place] CORONARY ARTERY W/O ANG PCTRS Qualifiers: Coronary Disease-Associated Artery/Lesion type: [place] artery [place] vs. transplanted heart: [place] heart Associated angina: without angina Qualified Code(s): I25.10 - Atherosclerotic heart disease of [place] coronary artery without angina pectoris (12) Dizziness Code(s): R42 - DIZZINESS AND GIDDINESS (13) HTN (hypertension) Code(s): I10 - ESSENTIAL (PRIMARY) HYPERTENSION Qualifiers: Hypertension type: essential hypertension Qualified Code(s): I10 - Essential (primary) hypertension (14) Hypothyroid Code(s): E03.9 - HYPOTHYROIDISM, UNSPECIFIED Qualifiers: Hypothyroidism type: unspecified Qualified Code(s): E03.9 - Hypothyroidism, unspecified (15) Orthostatic dizziness Code(s): R42 - DIZZINESS AND GIDDINESS (16) S/P coronary artery stent placement Code(s): Z95.5 - PRESENCE OF CORONARY ANGIOPLASTY IMPLANT AND GRAFT Assessment/Plan Transthoracic echocardiography reveals at least moderate or moderate to severe aortic valve stenosis with ERNESTO 0.8 cm 2 and mean gradient of 24 mmHg 1. RLL Pneumonia with leukocytosis 2. Gait dysfunction, no LOC, near syncope due to postural hypotension 3. CAD s/p PCI/stent, angina pectoris 4. HTN/HCVD 5. Hypercholesterolemia 6. Diastolic left ventricular dysfunction with class 1 NYHA classification LV failure, pulm HTN 7. Aortic valve disease - moderate aortic valve stenosis 8. Hypothyroidism 9. History of lung CA post chemotherapy 10. History of breast CA post lumpectomy, chemotherapy 11. Acute on CKD due to sepsis 12. Anemia and history of post-polypectomy bleed 13. COPD with chronic hypoxemic respiratory failure PLAN: 1. Antibiotic course f/u C&S, O2, BD, f/u CXR 2. Hydration with monitor bobby recovery, hold lisinopril and diuretics in meantime 3. Continue Carvedilol 12.5 bid and ASA 81 qd 4. DVT and GI prophylaxis, 5. Thank you for consultative opportunity
[2016-07-27] MEDS: methylPREDNISolone NA SUCC 40 MG/1 ML VIAL IVPB SCH ×2 (15:43→22:05)
--- NOTE | 2016-07-27 15:53 | PN ---
Progress Note (short form) - Note Progress Note: PULMONARY CONSULTATION DICTATED 07/27/16 IMP RLL PNEUMONIA CHRONIC HYPOXEMIA RESPIRATORY FAILURE ON O2 ADVANCED COPD H/O LUNG CA SMALL CELL S/P CHEMO H/O BREAST CA S/P LUMPECTOMY PULMONARY HTN ASHD S/P STENTS AORTIC STENOSIS ACUTE ON CHRONIC RENAL FAILURE PLAN IV ANTIBIOTICS NASAL O2 INHALED BRONCHODILATORS SPUTUM C+S F/U CHEST X-RAYS DVT PROPHYLAXIS MONITOR RENAL FUNCTION DR ALVAREZ Problem List - Problems (1) Acute on chronic renal failure Code(s): N17.9 - ACUTE KIDNEY FAILURE, UNSPECIFIED N18.9 - CHRONIC KIDNEY DISEASE, UNSPECIFIED Qualifiers: Acute renal failure type: unspecified Chronic kidney disease stage: unspecified stage Qualified Code(s): N17.9 - Acute kidney failure, unspecified; N18.9 - Chronic kidney disease, unspecified (2) COPD (chronic obstructive pulmonary disease) Code(s): J44.9 - CHRONIC OBSTRUCTIVE PULMONARY DISEASE, UNSPECIFIED Qualifiers : COPD type: unspecified COPD Qualified Code(s): J44.9 - Chronic obstructive pulmonary disease, unspecified (3) Hypoxia Code(s): R09.02 - HYPOXEMIA (4) Pneumonia Code(s): J18.9 - PNEUMONIA, UNSPECIFIED ORGANISM Qualifiers: Pneumonia type: due to unspecified organism Laterality: right Lung location: lower lobe of lung Qualified Code(s): J18.1 - Lobar pneumonia, unspecified organism (5) Status post fall Code(s): Z91.89 - OTH PERSONAL RISK FACTORS, NOT ELSEWHERE CLASSIFIED (6) ASHD (arteriosclerotic heart disease) Code(s): I25.10 - ATHSCL HEART DISEASE OF [place] CORONARY ARTERY W/O ANG PCTRS (7) Aortic stenosis Code(s): I35.0 - NONRHEUMATIC AORTIC (VALVE) STENOSIS Qualifiers: Cardiac valve disease etiology: nonrheumatic Qualified Code(s): I35.0 - Nonrheumatic aortic (valve) stenosis (8) Breast CA Code(s): C50.919 - MALIGNANT NEOPLASM OF UNSP SITE OF UNSPECIFIED FEMALE BREAST (9) CAD (coronary artery disease) Code(s): I25.10 - ATHSCL HEART DISEASE OF [place] CORONARY ARTERY W/O ANG PCTRS Qualifiers: Coronary Disease-Associated Artery/Lesion type: [place] artery [place] vs. transplanted heart: [place] heart Associated angina: without angina Qualified Code(s): I25.10 - Atherosclerotic heart disease of [place] coronary artery without angina pectoris (10) Lung cancer Code(s): C34.90 - MALIGNANT NEOPLASM OF UNSP PART OF UNSP BRONCHUS OR LUNG Qualifiers: Lung location: unspecified part of lung (11) S/P coronary artery stent placement Code(s): Z95.5 - PRESENCE OF CORONARY ANGIOPLASTY IMPLANT AND GRAFT (12) Chronic hypoxemic respiratory failure Code(s): J96.11 - CHRONIC RESPIRATORY FAILURE WITH HYPOXIA
--- NOTE | 2016-07-27 17:40 | CONSULT ---
Consult Consult Specialty:: Nephrology Reason for Consultation:: FRANK on CKD - History of Present Illness Chief Complaint: presented to ED s/p fall History of Present Illness: Pt is a 76 year old female with pmxh of CAD, HTN, Chol, pulmonary HTN, COPD, small cell cancer, ckd. and hypothyroidism who presents to the ER s.p fall. She was found to have worsening renal failure and I was called to evaluate her. She has had shortness of breath and cough. She had decrease PO intake prior to hospital admission. She was recently discharged a few weeks ago after an episode of hyperkalemia. Pt was also found to be septic likely from PNA and admitted for treatment. She does complain of shortness of breath. She denies dysuria. She is accompanied by her . - History Source History Provided By: Patient, Family Member, Medical Record - Past Medical History Cardio/Vascular: Yes: Aortic Stenosis, CAD (with coronary stenting), HTN, Hyperlipdemia, Mitral Insufficiency, Pulmonary Hypertension Pulmonary: Yes: Cancer (Chemothrerapy for small cell carcinoma- Dr Simpson), COPD Gastrointestinal: Yes: Diverticulosis, Other (Breast lumpectomy) Renal/: Yes: Renal Failure, Renal Inusuff Psych: Yes: Anxiety Musculoskeletal: Yes: Chronic low back pain, Osteoarthritis Endocrine: Yes: Hypothyroidism, Osteopenia - Past Surgical History Past Surgical History: Yes: Laminectomy (cervical ', lumbar '), Stent, Tonsillectomy, Tubal Ligation - Alcohol/Substance Use Hx Alcohol Use: No Date of Last Use: 02/27/81 - Smoking History Smoking history: Former smoker Have you smoked in the past 12 months: No Aproximately how many cigarettes per day: 0 If you are a former smoker, when did you quit?: 2004 - Social History Usual Living Arrangement: With Spouse ADL: Independent 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 History of Recent Travel: No Home Medications - Allergies Allergies/Adverse Reactions: Allergies Allergy/AdvReac Type Severity Reaction Status Date / Time No Known Allergies Allergy Verified 07/26/16 17:51 - Home Medications Home Medications: Ambulatory Orders Citalopram Hydrobromide [Citalopram HBr] 40 mg PO DAILY 11/12/15 Cholecalciferol (Vitamin D3) [Vitamin D -] 1,000 unit PO DAILY 01/07/16 Levothyroxine [Synthroid -] 0.5 tab PO DAILY@0700 03/07/16 Aspirin Coated [Ecotrin -] 81 mg PO DAILY tablet.ec 04/01/16 Carvedilol [Coreg -] 25 mg PO BID #60 tablet 07/12/16 Budesonide/Formeterol Fumarate [SYMBICORT 160/4.5mcg -] 1 inh PO BID 07/26/16 Furosemide [Lasix] 40 mg PO DAILY 07/26/16 Prednisone 20 mg PO DAILY 07/26/16 Family Disease History - Family Disease History Family Disease History: CA: Father (diffuse unknown primary), Sister ( of lung cancer), Other: Mother ( after hip fracture) Review of Systems - Review of Systems Constitutional: reports: Malaise Eyes: reports: No Symptoms HENT: reports: No Symptoms Neck: reports: No Symptoms Cardiovascular: reports: Shortness of Breath Respiratory: reports: Cough, SOB, SOB on Exertion Integumentary: reports: No Symptoms Neurological: reports: No Symptoms Endocrine: reports: No Symptoms Hematology/Lymphatic: reports: No Symptoms Psychiatric: reports: No Symptoms Physical Exam Vital Signs: Vital Signs Temperature 97.9 F 07/27/16 16:54 Pulse Rate 84 07/27/16 16:54 Respiratory Rate 20 07/27/16 16:54 Blood Pressure 106/77 07/27/16 16:54 O2 Sat by Pulse Oximetry (%) 96 07/27/16 12:20 Constitutional: Yes: Calm Eyes: Yes: Conjunctiva Clear HENT: Yes: Atraumatic Neck: Yes: Supple Cardiovascular: Yes: S1, S2 Respiratory: Yes: On Nasal O2, Tachypnea Gastrointestinal: Yes: Soft Renal/: Yes: WNL Musculoskeletal: Yes: Muscle Weakness Edema: No Neurological: Yes: Oriented Psychiatric: Yes: Oriented Labs: CBC, BMP 07/27/16 10:00 07/27/16 10:00 Laboratory Tests 07/11/16 07/26/16 07/26/16 05:35 19:00 19:00 WBC 35.1 H* D Hgb Sodium Potassium Chloride Carbon Dioxide Anion Gap BUN 40 H 100 H D Creatinine 1.9 H 3.5 H D Creatine Kinase Urine Color Urine Appearance Urine pH Ur Specific [place] Urine Protein Urine Glucose (UA) Urine Ketones Urine Blood Urine Nitrite Urine Bilirubin Urine Urobilinogen Ur Leukocyte Esterase 07/26/16 07/27/16 07/27/16 20:18 02:30 05:17 WBC 38.4 H* Hgb Sodium 134 L Potassium 5.3 H Chloride 102 Carbon Dioxide 26 Anion Gap 6 L BUN 111 H* Creatinine 3.6 H Creatine Kinase Urine Color Ltyellow Urine Appearance Clear Urine pH 5.0 Ur Specific [place] <= 1.005 Urine Protein Negative Urine Glucose (UA) Negative Urine Ketones Negative Urine Blood Negative Urine Nitrite Negative Urine Bilirubin Negative Urine Urobilinogen Negative Ur Leukocyte Esterase Negative 07/27/16 07/27/16 10:00 10:00 WBC 39.6 H* Hgb 9.4 L Sodium 135 L Potassium 5.1 Chloride 100 Carbon Dioxide 24 Anion Gap 11 BUN 102 H Creatinine 3.6 H Creatine Kinase 42 Urine Color Urine Appearance Urine pH Ur Specific [place] Urine Protein Urine Glucose (UA) Urine Ketones Urine Blood Urine Nitrite Urine Bilirubin Urine Urobilinogen Ur Leukocyte Esterase Imaging - Results Chest X-ray: Report Reviewed Cat Scan: Report Reviewed Problem List - Problems (1) Acute on chronic renal failure Code(s): N17.9 - ACUTE KIDNEY FAILURE, UNSPECIFIED N18.9 - CHRONIC KIDNEY DISEASE, UNSPECIFIED Qualifiers: Acute renal failure type: unspecified Chronic kidney disease stage: unspecified stage Qualified Code(s): N17.9 - Acute kidney failure, unspecified; N18.9 - Chronic kidney disease, unspecified (2) COPD (chronic obstructive pulmonary disease) Code(s): J44.9 - CHRONIC OBSTRUCTIVE PULMONARY DISEASE, UNSPECIFIED Qualifiers : COPD type: unspecified COPD Qualified Code(s): J44.9 - Chronic obstructive pulmonary disease, unspecified (3) Chronic hypoxemic respiratory failure Code(s): J96.11 - CHRONIC RESPIRATORY FAILURE WITH HYPOXIA (4) Hyperkalemia Code(s): E87.5 - HYPERKALEMIA (5) Hypoxia Code(s): R09.02 - HYPOXEMIA (6) Leukocytosis Code(s): D72.829 - ELEVATED WHITE BLOOD CELL COUNT, UNSPECIFIED Qualifiers: Leukocytosis type: other Qualified Code(s): D72.828 - Other elevated white blood cell count (7) Pneumonia Code(s): J18.9 - PNEUMONIA, UNSPECIFIED ORGANISM Qualifiers: Pneumonia type: due to unspecified organism Laterality: right Lung location: lower lobe of lung Qualified Code(s): J18.1 - Lobar pneumonia, unspecified organism (8) Breast CA Code(s): C50.919 - MALIG[place]NT NEOPLASM OF UNSP SITE OF UNSPECIFIED FEMALE BREAST (9) CAD (coronary artery disease) Code(s): I25.10 - ATHSCL HEART DISEASE OF [place] CORONARY ARTERY W/O ANG PCTRS Qualifiers: Coronary Disease-Associated Artery/Lesion type: [place] artery [place] vs. transplanted heart: [place] heart Associated angina: without angina Qualified Code(s): I25.10 - Atherosclerotic heart disease of [place] coronary artery without angina pectoris Assessment/Plan Current Medications Generic Name Dose Route Start Last Admin Trade Name Freq PRN Reason Stop Dose Admin Acetaminophen 650 mg 07/27/16 09:14 Tylenol - PO Q4H PRN FEVER OR PAIN Albuterol/Ipratropium 1 amp 07/27/16 12:00 07/27/16 12:00 Duoneb - NEB 1 amp QIDR NURIS Administration Aspirin 81 mg 07/27/16 10:00 07/27/16 10:40 Ecotrin - PO 81 mg DAILY NURIS Administration Budesonide/Formoterol Fumarate 2 puff 07/27/16 10:00 07/27/16 11:21 Symbicort 160/4.5mcg - IH Not Given BID NURIS Carvedilol 12.5 mg 07/27/16 22:00 Coreg - PO BID NURIS Cholecalciferol 1,000 unit 07/27/16 10:00 07/27/16 10:40 Vitamin D3 - PO 1,000 unit DAILY NURIS Administration Citalopram Hydrobromide 40 mg 07/27/16 10:00 07/27/16 10:40 Celexa - PO 40 mg DAILY NURIS Administration Heparin Sodium (Porcine) 5,000 unit 07/27/16 10:00 07/27/16 10:40 Heparin - SQ 5,000 unit BID NURIS Administration Dextrose/Sodium Chloride 1,000 mls @ 75 mls/hr 07/27/16 09:15 07/27/16 10:10 D5-1/2ns - IV 75 mls/hr ASDIR NURIS Administration Piperacillin Sod/Tazobactam Sod 50 mls @ 100 mls/hr 07/27/16 12:00 07/27/16 13: 19 Zosyn 2.25gm Ivpb (Pre-Docked) IVPB 100 mls/hr Q8H-IV NURIS Administration Protocol Levothyroxine Sodium 88 mcg 07/28/16 07:00 Synthroid - PO DAILY@0700 NURIS Methylprednisolone Sodium Succinate 40 mg 07/27/16 15:00 07/27/16 15:43 Solu-Medrol - IVPB 40 mg Q6H-IV NURIS Administration Oxycodone HCl 5 mg 07/27/16 09:14 Roxicodone - PO Q6H PRN PAIN Pantoprazole Sodium 40 mg 07/27/16 10:00 07/27/16 10:40 Protonix - PO 40 mg DAILY NURIS Administration Impression 1. CKD 2. FRANK 3. hyperkalemia 4. CAD with cardiac stents 5. HTN 6. Hyperlipidemia 7. Hypothyroidism 8. H/O Breast 9. Lung Ca 10. Anemia 11. sepsis 12. PNA Plan - agree with hydration - will check kidney and bladder ultrasound to r/o obstruction - check ua and lytes - repeat labs in am - cont abx, ID input appreciated - discussed case with pts - follow cultures - will follow pt Dr Schilling
[2016-07-27] MEDS ORDERED: PIPERACILLIN/TAZOB 3.375 GM/50 ML PRE-DOCKED IVPB SCH (18:00)
--- NOTE | 2016-07-27 18:42 | CONS ---
PULMONARY CONSULTATION DATE OF CONSULTATION: 07/27/2016 REFERRING PHYSICIAN: Isaiah Thompson MD DICTATED BY: Fe Alvarez MD HISTORY OF PRESENT ILLNESS: The patient is a 76-year-old white female know to me on previous hospitalizations as well as office followup. 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 intake and multiple falls. Patient states she fell on the day of admission on the left side and having difficulty trying to stand up. Apparently, she was seen in the emergency room for the above. On admission, she denied any complaints of chest pain, nausea, vomiting, diaphoresis. Did complain of some shortness of breath with minimal exertion. She also complains of cough, which is minimally productive. She denies hemoptysis. Of note, the patient was recently hospitalized on July 12 secondary to hyperkalemia. PAST MEDICAL HISTORY: Again includes aortic stenosis, ASHD status post stent, hypertension, hyperlipidemia, mitral insufficiency, pulmonary hypertension, COPD on home O2, osteoarthritis, history of breast CA status post right lumpectomy status post chemotherapy, small-cell CA of the lung status post chemotherapy, chronic kidney disease, hypothyroidism, osteopenia. REVIEW OF SYSTEMS: Positive cough, positive shortness of breath, positive occasional chills, intermittent temps, positive occasional night sweats, positive weight loss. No hemoptysis, no chest pain, no palpitations, no abdominal pain. SOCIAL HISTORY: History of tobacco use, approximately 1 pack per day for many years, quit a few years ago. No history of occupational exposures. CURRENT MEDICATIONS: Include: 1. Symbicort. 2. Solu-Medrol. 3. Tylenol. 4. Piperacillin. 5. Heparin. 6. Celexa. 7. DuoNeb. 8. Coreg. 9. IV fluids. 10. Ecotrin. 11. Roxicodone. 12. Protonix. 13. Synthroid. 14. Vitamin D3. PHYSICAL EXAMINATION: General: The patient is an elderly white female as stated above, awake alert, in no acute distress. Vital signs: She is currently afebrile. Blood pressure is 140/71. Respiratory rate is 20. O2 saturation is 94% on 4 L. HEENT exam: Normocephalic/atraumatic. Neck is supple. Heart: Heart is irregular, S1, S2. Lungs: Chest bilateral crackles, a few scattered rhonchi. Abdomen: Soft. Bowel sounds are positive. Extremities: No cyanosis or edema. LABORATORIES: WBC is 39.6, hemoglobin 9.4, hematocrit 28.6 with platelet count of 398,000, 90 polys, 7 lymphs and 3 monos. BUN is 102, creatinine 3.6. Chest CT reveals no masses. There is a right lower lobe consolidation as well as a small area of consolidated atelectasis in the left lung base. IMPRESSION: 1. Likely pneumonia, right lower lobe. Will treat as hospital-acquired in view of recent hospitalization. 2. Advanced chronic obstructive pulmonary disease, on home O2. 3. History of lung cancer status post chemotherapy. 4. History of breast cancer status post lumpectomy. 5. Atherosclerotic heart disease status post stent. 6. Pulmonary hypertension. 7. Aortic stenosis. PLAN: 1. IVs 2. Inhaled bronchodilators. 3. Supplemental O2. 4. Broad-spectrum antibiotics. 5. Monitor CBC. 6. Obtain followup chest x-rays. 7. Sputum for culture and sensitivity. 8. DVT prophylaxis. FE ALVAREZ M.D. ERYN/[id number]
[2016-07-27 19:15] LABS: URINE APPEARANCE CLEAR; URINE BILIRUBIN NEGATIVE (NEGATIVE); URINE BLOOD NEGATIVE (NEGATIVE); URINE COLOR LTYELLOW; URINE GLUCOSE (UA) NEGATIVE (NEGATIVE); URINE KETONE NEGATIVE (NEGATIVE); URINE LEUK ESTERASE NEGATIVE (NEGATIVE); URINE NITRITE NEGATIVE (NEGATIVE); URINE PROTEIN NEGATIVE (NEGATIVE); URINE UROBILINOGEN NEGATIVE E.U./dl (0.2-1.0)
[2016-07-27] MEDS: CARVEDILOL 12.5 MG TABLET (FP) PO SCH (22:06)
[2016-07-28] MEDS: ALBUTEROL SO4 2.5/IPRATROPIUM 0.5 INH SOL 3 ML VIAL.NEB. NEB SCH ×5 (00:05→23:17)
[2016-07-28] MEDS: methylPREDNISolone NA SUCC 40 MG/1 ML VIAL IVPB SCH ×4 (02:04→21:54)
[2016-07-28] MEDS: PIPERACILLIN/TAZOB 2.25 GM 50 ML IVPB SCH ×3 (02:04→18:22)
[2016-07-28] MEDS: LEVOTHYROXINE NA 88 MCG TABLET (FP) PO SCH (06:17)
[2016-07-28] MEDS ORDERED: PT OWN MED DRAWER 7, Y5N ONE (07:02)
[2016-07-28 07:49] LABS: BASOPHIL 0.1 % (0-2.0); MCH 29.9 pg (25.7-33.7); MCHC 32.9 g/dl (32.0-36.0); MEAN CELL VOLUME 90.9 fl (80-96); MEAN PLT VOLUME 7.2 fl (7.5-11.1); NEUTROPHILS 94.8 % (42.8-82.8); PLATELET COUNT 370 K/MM3 (134-434); RDW 15.7 % (11.6-15.6); WHITE BLOOD COUNT 18.5 K/mm3 (4.0-10.0)
[2016-07-28 08:58] LABS: CALCIUM 8.9 mg/dL (8.5-10.1); COCKROFT - GAULT 7.65; CREATININE 3.5 mg/dL (0.55-1.02)
[2016-07-28 09:01] LABS: ALBUMIN 2.4 g/dl (3.4-5.0); BILIRUBIN,TOTAL 0.3 mg/dL (0.2-1.0)
[2016-07-28] MEDS: ASPIRIN COATED 81 MG TABLET.EC PO SCH (10:57)
[2016-07-28] MEDS: CARVEDILOL 12.5 MG TABLET (FP) PO SCH ×2 (10:57→21:54)
[2016-07-28] MEDS: PANTOPRAZOLE 40 MG TABLET (FP) PO SCH (10:57)
[2016-07-28] MEDS: CITALOPRAM HYDROBROMIDE 20 MG TABLET (FP) PO SCH (10:57)
[2016-07-28] MEDS: CHOLECALCIFEROL (VITAMIN D3) 1,000 UNIT TABLET (FP) PO SCH (10:58)
[2016-07-28] MEDS: HEPARIN NA (PORCINE) 5,000 UNITS/ML 1ML VIAL SQ SCH ×2 (10:59→21:54)
[2016-07-28] MEDS: BUDESONIDE/FORMETEROL FUMARATE 160/4.5 mcg INHALER IH SCH ×2 (10:59→21:54)
--- NOTE | 2016-07-28 11:08 | PN ---
Progress Note (short form) - Note Progress Note: Laying in bed in NAD on NC O2. Feels weak. Some dry cough. No CP. Intake & Output 07/25/16 07/26/16 07/27/16 07/28/16 23:59 23:59 23:59 23:59 Intake Total 1250 1060 Output Total 100 Balance 1150 1060 Weight 101 lb 91 lb 11.2 oz 86 lb 3.2 oz Last Vital Signs Temp Pulse Resp BP Pulse Ox 97.8 F 89 18 144/77 96 07/28/16 06:58 07/28/16 06:58 07/28/16 06:58 07/28/16 06:58 07/27/16 21:00 Active Medications Acetaminophen (Tylenol -) 650 mg PO Q4H PRN PRN Reason: FEVER OR PAIN Albuterol/Ipratropium (Duoneb -) 1 amp NEB QIDR [facility] Last Admin: 07/28/16 07:11 Dose: 1 amp Aspirin (Ecotrin -) 81 mg PO DAILY [facility] Last Admin: 07/28/16 10:57 Dose: 81 mg Budesonide/Formoterol Fumarate (Symbicort 160/4.5mcg -) 2 puff IH BID [facility] Last Admin: 07/28/16 10:59 Dose: 2 puff Carvedilol (Coreg -) 12.5 mg PO BID [facility] Last Admin: 07/28/16 10:57 Dose: 12.5 mg Cholecalciferol (Vitamin D3 -) 1,000 unit PO DAILY [facility] Last Admin: 07/28/16 10:58 Dose: 1,000 unit Citalopram Hydrobromide (Celexa -) 40 mg PO DAILY [facility] Last Admin: 07/28/16 10:57 Dose: 40 mg Heparin Sodium (Porcine) (Heparin -) 5,000 unit SQ BID [facility] Last Admin: 07/28/16 10:59 Dose: 5,000 unit Dextrose/Sodium Chloride (D5-1/2ns -) 1,000 mls @ 75 mls/hr IV ASDIR [facility] Last Admin: 07/27/16 10:10 Dose: 75 mls/hr Piperacillin Sod/Tazobactam Sod (Zosyn 2.25gm Ivpb (Pre-Docked)) 50 mls @ 100 mls/hr IVPB Q8H-IV [facility] PRN Reason: Protocol Last Admin: 07/28/16 11:00 Dose: 100 mls/hr Levothyroxine Sodium (Synthroid -) 88 mcg PO DAILY@0700 [facility] Last Admin: 07/28/16 06:17 Dose: 88 mcg Methylprednisolone Sodium Succinate (Solu-Medrol -) 40 mg IVPB Q6H-IV [facility] Last Admin: 07/28/16 08:56 Dose: 40 mg Oxycodone HCl (Roxicodone -) 5 mg PO Q6H PRN PRN Reason: PAIN Pantoprazole Sodium (Protonix -) 40 mg PO DAILY [facility] Last Admin: 07/28/16 10:57 Dose: 40 mg General: weak appearing, NAD Cardiovascular: Yes: Murmur, S1, S2 Respiratory: Yes: Diminished at the bases , Scattered bilateral Rhonchi / Wheezes Gastrointestinal: Yes: Normal Bowel Sounds, Soft Edema: No Labs: Laboratory Results - last 24 hr 07/27/16 07/27/16 07/27/16 10:00 10:00 10:00 WBC RBC Hgb Hct MCV MCHC RDW Plt Count MPV Neutrophils % 90.0 H Lymphocytes % 7.0 L Monocytes % 3.0 L Eosinophils % Basophils % Differential Comment Manual diff done Platelet Estimate Adequate Sodium Potassium Chloride Carbon Dioxide Anion Gap BUN Creatinine Creat Clearance w eGFR Random Glucose Calcium Total Bilirubin AST ALT Alkaline Phosphatase Creatine Kinase 42 Cancelled Troponin I Cancelled Total Protein Albumin Urine Color Urine Appearance Urine pH Ur Specific [place] Urine Protein Urine Glucose (UA) Urine Ketones Urine Blood Urine Nitrite Urine Bilirubin Urine Urobilinogen Ur Leukocyte Esterase Ur Random Sodium Ur Random Potassium Ur Random Chloride Urine Creatinine Random Vancomycin 07/27/16 07/27/16 07/27/16 18:15 18:15 18:15 WBC RBC Hgb Hct MCV MCHC RDW Plt Count MPV Neutrophils % Lymphocytes % Monocytes % Eosinophils % Basophils % Differential Comment Platelet Estimate Sodium Potassium Chloride Carbon Dioxide Anion Gap BUN Creatinine Creat Clearance w eGFR Random Glucose Calcium Total Bilirubin AST ALT Alkaline Phosphatase Creatine Kinase Troponin I Total Protein Albumin Urine Color Ltyellow Urine Appearance Clear Urine pH 5.0 Ur Specific [place] <= 1.005 Urine Protein Negative Urine Glucose (UA) Negative Urine Ketones Negative Urine Blood Negative Urine Nitrite Negative Urine Bilirubin Negative Urine Urobilinogen Negative Ur Leukocyte Esterase Negative Ur Random Sodium 14 Ur Random Potassium 29.3 Ur Random Chloride 17 Urine Creatinine 59.6 Random Vancomycin 07/28/16 07/28/16 07/28/16 06:05 06:05 06:05 WBC 18.5 H D RBC 3.20 L Hgb 9.6 L Hct 29.1 L MCV 90.9 MCHC 32.9 RDW 15.7 H Plt Count 370 MPV 7.2 L Neutrophils % 94.8 H Lymphocytes % 4.8 L D Monocytes % 0.3 L D Eosinophils % 0.0 Basophils % 0.1 Differential Comment Platelet Estimate Sodium 135 L Cancelled Potassium 5.0 Cancelled Chloride 101 Cancelled Carbon Dioxide 24 Cancelled Anion Gap 9 Cancelled BUN 106 H* Cancelled Creatinine 3.5 H Cancelled Creat Clearance w eGFR 12.70 Random Glucose 147 H D Cancelled Calcium 8.9 Cancelled Total Bilirubin 0.3 AST 13 L ALT 14 Alkaline Phosphatase 74 Creatine Kinase Troponin I Total Protein 7.0 Albumin 2.4 L Urine Color Urine Appearance Urine pH Ur Specific [place] Urine Protein Urine Glucose (UA) Urine Ketones Urine Blood Urine Nitrite Urine Bilirubin Urine Urobilinogen Ur Leukocyte Esterase Ur Random Sodium Ur Random Potassium Ur Random Chloride Urine Creatinine Random Vancomycin 10.949 Problem List - Problems (1) Acute on chronic renal failure Assessment/Plan: IVF MONITOR RENAL FUNCTION Code(s): N17.9 - ACUTE KIDNEY FAILURE, UNSPECIFIED N18.9 - CHRONIC KIDNEY DISEASE, UNSPECIFIED Qualifiers: Acute renal failure type: unspecified Chronic kidney disease stage: unspecified stage Qualified Code(s): N17.9 - Acute kidney failure, unspecified; N18.9 - Chronic kidney disease, unspecified (2) COPD (chronic obstructive pulmonary disease) Assessment/Plan: NEBS STEROIDS PULM Code(s): J44.9 - CHRONIC OBSTRUCTIVE PULMONARY DISEASE, UNSPECIFIED Qualifiers : COPD type: unspecified COPD Qualified Code(s): J44.9 - Chronic obstructive pulmonary disease, unspecified (3) Leukocytosis Assessment/Plan: STEROIDS AND PNEUMONIA Code(s): D72.829 - ELEVATED WHITE BLOOD CELL COUNT, UNSPECIFIED Qualifiers: Leukocytosis type: other Qualified Code(s): D72.828 - Other elevated white blood cell count (4) Pneumonia Assessment/Plan: IV ABX CULTURES CXR Code(s): J18.9 - PNEUMONIA, UNSPECIFIED ORGANISM Qualifiers: Pneumonia type: due to unspecified organism Laterality: right Lung location: lower lobe of lung Qualified Code(s): J18.1 - Lobar pneumonia, unspecified organism (5) CHF (congestive heart failure) Assessment/Plan: NO EVIDENCE OF FAILURE IVF HOLD LASIX Code(s): I50.9 - HEART FAILURE, UNSPECIFIED (6) Lung cancer Code(s): C34.90 - MALIGNANT NEOPLASM OF UNSP PART OF UNSP BRONCHUS OR LUNG Qualifiers: Lung location: unspecified part of lung PLAN: ABX Medrol BD TX O2 as needed VTE prophylaxis Renal workup ongoing Dr Henriquez
--- NOTE | 2016-07-28 11:35 | PN ---
Progress Note, Physician Chief Complaint: Weakness and fatigue SOB Atypical chest pain History of Present Illness: Patient came in the hospital for PNE, Pleural effusion, dehydration and leukocytosis. Patient lying in bed comfortably, Feels better. - Current Medication List Current Medications: Active Medications Acetaminophen (Tylenol -) 650 mg PO Q4H PRN PRN Reason: FEVER OR PAIN Albuterol/Ipratropium (Duoneb -) 1 amp NEB QIDR [facility] Last Admin: 07/28/16 07:11 Dose: 1 amp Aspirin (Ecotrin -) 81 mg PO DAILY [facility] Last Admin: 07/28/16 10:57 Dose: 81 mg Budesonide/Formoterol Fumarate (Symbicort 160/4.5mcg -) 2 puff IH BID [facility] Last Admin: 07/28/16 10:59 Dose: 2 puff Carvedilol (Coreg -) 12.5 mg PO BID [facility] Last Admin: 07/28/16 10:57 Dose: 12.5 mg Cholecalciferol (Vitamin D3 -) 1,000 unit PO DAILY [facility] Last Admin: 07/28/16 10:58 Dose: 1,000 unit Citalopram Hydrobromide (Celexa -) 40 mg PO DAILY [facility] Last Admin: 07/28/16 10:57 Dose: 40 mg Heparin Sodium (Porcine) (Heparin -) 5,000 unit SQ BID [facility] Last Admin: 07/28/16 10:59 Dose: 5,000 unit Dextrose/Sodium Chloride (D5-1/2ns -) 1,000 mls @ 75 mls/hr IV ASDIR [facility] Last Admin: 07/27/16 10:10 Dose: 75 mls/hr Piperacillin Sod/Tazobactam Sod (Zosyn 2.25gm Ivpb (Pre-Docked)) 50 mls @ 100 mls/hr IVPB Q8H-IV [facility] PRN Reason: Protocol Last Admin: 07/28/16 11:00 Dose: 100 mls/hr Levothyroxine Sodium (Synthroid -) 88 mcg PO DAILY@0700 [facility] Last Admin: 07/28/16 06:17 Dose: 88 mcg Methylprednisolone Sodium Succinate (Solu-Medrol -) 40 mg IVPB Q6H-IV [facility] Last Admin: 07/28/16 08:56 Dose: 40 mg Oxycodone HCl (Roxicodone -) 5 mg PO Q6H PRN PRN Reason: PAIN Pantoprazole Sodium (Protonix -) 40 mg PO DAILY [facility] Last Admin: 07/28/16 10:57 Dose: 40 mg - Objective Vital Signs: Vital Signs Temperature 97.8 F 07/28/16 06:58 Pulse Rate 89 07/28/16 06:58 Respiratory Rate 18 07/28/16 06:58 Blood Pressure 144/77 07/28/16 06:58 O2 Sat by Pulse Oximetry (%) 96 07/27/16 21:00 Constitutional: Yes: Well Nourished, No Distress, Calm Cardiovascular: Yes: Regular Rate and Rhythm Respiratory: Yes: Regular, Rales (BLLL) Gastrointestinal: Yes: Normal Bowel Sounds Musculoskeletal: Yes: Muscle Weakness Edema: No Peripheral Pulses WNL: Yes Neurological: Yes: Alert, Oriented ...Motor Strength: WNL (Generalized weakness) Psychiatric: Yes: Alert, Oriented Labs: CBC, BMP 07/28/16 06:05 07/28/16 06:05 Problem List - Problems (1) Acute on chronic renal failure Assessment/Plan: Renal on the case, renal status stable, IVF Code(s): N17.9 - ACUTE KIDNEY FAILURE, UNSPECIFIED N18.9 - CHRONIC KIDNEY DISEASE, UNSPECIFIED Qualifiers: Acute renal failure type: unspecified Chronic kidney disease stage: unspecified stage Qualified Code(s): N17.9 - Acute kidney failure, unspecified; N18.9 - Chronic kidney disease, unspecified (2) COPD (chronic obstructive pulmonary disease) Assessment/Plan: PULMONARY CONSULTS NEBULIZER TX O2 THERAPY Code(s): J44.9 - CHRONIC OBSTRUCTIVE PULMONARY DISEASE, UNSPECIFIED Qualifiers : COPD type: unspecified COPD Qualified Code(s): J44.9 - Chronic obstructive pulmonary disease, unspecified (3) Hypoxia Assessment/Plan: STABLE ON O2 TX Code(s): R09.02 - HYPOXEMIA (4) Leukocytosis Assessment/Plan: SECONDARY TO STEROIDS AND PNE Code(s): D72.829 - ELEVATED WHITE BLOOD CELL COUNT, UNSPECIFIED Qualifiers: Leukocytosis type: other Qualified Code(s): D72.828 - Other elevated white blood cell count (5) Pneumonia Assessment/Plan: IV ABX, ID CONSULT, GRADUALLY IMPROVING. Code(s): J18.9 - PNEUMONIA, UNSPECIFIED ORGANISM Qualifiers: Pneumonia type: due to unspecified organism Laterality: right Lung location: lower lobe of lung Qualified Code(s): J18.1 - Lobar pneumonia, unspecified organism (6) Weakness Assessment/Plan: WILL ORDER PHYSICAL THERAPY Code(s): R53.1 - WEAKNESS Assessment/Plan CONTINUE CURRENT REGIMEN PHYSICAL THERAPY MONITOR LABS AND RENAL FUNCTION.
--- NOTE | 2016-07-28 12:34 | PN ---
Progress Note, Physician History of Present Illness: Pt seen and examined at bedside. She is more awake and alert than she was yesterday. She still complains of cough. - Current Medication List Current Medications: Active Medications Acetaminophen (Tylenol -) 650 mg PO Q4H PRN PRN Reason: FEVER OR PAIN Albuterol/Ipratropium (Duoneb -) 1 amp NEB QIDR [facility] Last Admin: 07/28/16 11:40 Dose: 1 amp Aspirin (Ecotrin -) 81 mg PO DAILY [facility] Last Admin: 07/28/16 10:57 Dose: 81 mg Budesonide/Formoterol Fumarate (Symbicort 160/4.5mcg -) 2 puff IH BID [facility] Last Admin: 07/28/16 10:59 Dose: 2 puff Carvedilol (Coreg -) 12.5 mg PO BID [facility] Last Admin: 07/28/16 10:57 Dose: 12.5 mg Cholecalciferol (Vitamin D3 -) 1,000 unit PO DAILY [facility] Last Admin: 07/28/16 10:58 Dose: 1,000 unit Citalopram Hydrobromide (Celexa -) 40 mg PO DAILY [facility] Last Admin: 07/28/16 10:57 Dose: 40 mg Heparin Sodium (Porcine) (Heparin -) 5,000 unit SQ BID [facility] Last Admin: 07/28/16 10:59 Dose: 5,000 unit Dextrose/Sodium Chloride (D5-1/2ns -) 1,000 mls @ 75 mls/hr IV ASDIR [facility] Last Admin: 07/27/16 10:10 Dose: 75 mls/hr Piperacillin Sod/Tazobactam Sod (Zosyn 2.25gm Ivpb (Pre-Docked)) 50 mls @ 100 mls/hr IVPB Q8H-IV [facility] PRN Reason: Protocol Last Admin: 07/28/16 11:00 Dose: 100 mls/hr Levothyroxine Sodium (Synthroid -) 88 mcg PO DAILY@0700 [facility] Last Admin: 07/28/16 06:17 Dose: 88 mcg Methylprednisolone Sodium Succinate (Solu-Medrol -) 40 mg IVPB Q6H-IV [facility] Last Admin: 07/28/16 08:56 Dose: 40 mg Oxycodone HCl (Roxicodone -) 5 mg PO Q6H PRN PRN Reason: PAIN Pantoprazole Sodium (Protonix -) 40 mg PO DAILY [facility] Last Admin: 07/28/16 10:57 Dose: 40 mg - Objective Vital Signs: Vital Signs Temperature 97.8 F 07/28/16 06:58 Pulse Rate 89 07/28/16 06:58 Respiratory Rate 18 07/28/16 06:58 Blood Pressure 144/77 07/28/16 06:58 O2 Sat by Pulse Oximetry (%) 96 07/27/16 21:00 Constitutional: Yes: Calm Eyes: Yes: Conjunctiva Clear HENT: Yes: Atraumatic Neck: Yes: Supple Cardiovascular: Yes: S1, S2 Respiratory: Yes: On Nasal O2 Gastrointestinal: Yes: Soft Genitourinary: Yes: WNL Edema: No Neurological: Yes: Oriented Psychiatric: Yes: Oriented Labs: CBC, BMP 07/28/16 06:05 07/28/16 06:05 Problem List - Problems (1) Acute on chronic renal failure Code(s): N17.9 - ACUTE KIDNEY FAILURE, UNSPECIFIED N18.9 - CHRONIC KIDNEY DISEASE, UNSPECIFIED Qualifiers: Acute renal failure type: unspecified Chronic kidney disease stage: unspecified stage Qualified Code(s): N17.9 - Acute kidney failure, unspecified; N18.9 - Chronic kidney disease, unspecified (2) COPD (chronic obstructive pulmonary disease) Code(s): J44.9 - CHRONIC OBSTRUCTIVE PULMONARY DISEASE, UNSPECIFIED Qualifiers : COPD type: unspecified COPD Qualified Code(s): J44.9 - Chronic obstructive pulmonary disease, unspecified (3) Chronic hypoxemic respiratory failure Code(s): J96.11 - CHRONIC RESPIRATORY FAILURE WITH HYPOXIA (4) Hyperkalemia Code(s): E87.5 - HYPERKALEMIA (5) Hypoxia Code(s): R09.02 - HYPOXEMIA (6) Leukocytosis Code(s): D72.829 - ELEVATED WHITE BLOOD CELL COUNT, UNSPECIFIED Qualifiers: Leukocytosis type: other Qualified Code(s): D72.828 - Other elevated white blood cell count (7) Pneumonia Code(s): J18.9 - PNEUMONIA, UNSPECIFIED ORGANISM Qualifiers: Pneumonia type: due to unspecified organism Laterality: right Lung location: lower lobe of lung Qualified Code(s): J18.1 - Lobar pneumonia, unspecified organism (8) Breast CA Code(s): C50.919 - MALIGNANT NEOPLASM OF UNSP SITE OF UNSPECIFIED FEMALE BREAST (9) CAD (coronary artery disease) Code(s): I25.10 - ATHSCL HEART DISEASE OF [place] CORONARY ARTERY W/O ANG PCTRS Qualifiers: Coronary Disease-Associated Artery/Lesion type: [place] artery [place] vs. transplanted heart: [place] heart Associated angina: without angina Qualified Code(s): I25.10 - Atherosclerotic heart disease of [place] coronary artery without angina pectoris Assessment/Plan Current Medications Generic Name Dose Route Start Last Admin Trade Name Freq PRN Reason Stop Dose Admin Acetaminophen 650 mg 07/27/16 09:14 Tylenol - PO Q4H PRN FEVER OR PAIN Albuterol/Ipratropium 1 amp 07/27/16 12:00 07/28/16 11:40 Duoneb - NEB 1 amp QIDR [facility] Administration Aspirin 81 mg 07/27/16 10:00 07/28/16 10:57 Ecotrin - PO 81 mg DAILY [facility] Administration Budesonide/Formoterol Fumarate 2 puff 07/27/16 10:00 07/28/16 10:59 Symbicort 160/4.5mcg - IH 2 puff BID [facility] Administration Carvedilol 12.5 mg 07/27/16 22:00 07/28/16 10:57 Coreg - PO 12.5 mg BID [facility] Administration Cholecalciferol 1,000 unit 07/27/16 10:00 07/28/16 10:58 Vitamin D3 - PO 1,000 unit DAILY [facility] Administration Citalopram Hydrobromide 40 mg 07/27/16 10:00 07/28/16 10:57 Celexa - PO 40 mg DAILY [facility] Administration Heparin Sodium (Porcine) 5,000 unit 07/27/16 10:00 07/28/16 10:59 Heparin - SQ 5,000 unit BID [facility] Administration Dextrose/Sodium Chloride 1,000 mls @ 75 mls/hr 07/27/16 09:15 07/27/16 10:10 D5-1/2ns - IV 75 mls/hr ASDIR [facility] Administration Piperacillin Sod/Tazobactam Sod 50 mls @ 100 mls/hr 07/27/16 12:00 07/28/16 11: 00 Zosyn 2.25gm Ivpb (Pre-Docked) IVPB 100 mls/hr Q8H-IV [facility] Administration Protocol Levothyroxine Sodium 88 mcg 07/28/16 07:00 07/28/16 06:17 Synthroid - PO 88 mcg DAILY@0700 [facility] Administration Methylprednisolone Sodium Succinate 40 mg 07/27/16 15:00 07/28/16 08:56 Solu-Medrol - IVPB 40 mg Q6H-IV [facility] Administration Oxycodone HCl 5 mg 07/27/16 09:14 Roxicodone - PO Q6H PRN PAIN Pantoprazole Sodium 40 mg 07/27/16 10:00 07/28/16 10:57 Protonix - PO 40 mg DAILY [facility] Administration Impression 1. CKD 2. FRANK 3. hyperkalemia 4. CAD with cardiac stents 5. HTN 6. Hyperlipidemia 7. Hypothyroidism 8. H/O Breast 9. Lung Ca 10. Anemia 11. sepsis 12. PNA Plan - cont current fluids - repeat labs in am - renal ultrasound reviewed, neg hydro - wbc is starting to improve - cont with abx - follow cultures - will follow pt Dr Schilling
--- NOTE | 2016-07-28 14:48 | PN ---
Progress Note (short form) - Note Progress Note: overall feels better less cough no diarrhea Vital Signs Period Temp Pulse Resp BP Sys/Kennedy Pulse Ox Last 24 Hr 97.8 F-97.9 F 81-89 18-20 106-144/61-77 96 cor-rrr lungs scattered rhonchi abd soft,nt ext no edema CBC, BMP 07/28/16 06:05 07/28/16 06:05 Microbiology 07/27/16 18:15 Urine For Antigen Detection Legionella Antigen - Final 07/27/16 18:15 Urine For Antigen Detection Streptococcus pneumoniae Antigen (M - Final 07/26/16 20:18 Urine - Urine - Catheterized Urine Culture - Final NO GROWTH OBTAINED 07/27/16 10:00 Blood - Peripheral Venous Blood Culture - Preliminary NO GROWTH OBTAINED AFTER 24 HOURS, INCUBATION TO CONTINUE FOR 4 DAYS. 07/27/16 10:00 Blood - Peripheral Venous Blood Culture - Preliminary NO GROWTH OBTAINED AFTER 24 HOURS, INCUBATION TO CONTINUE FOR [address]- RLL infiltrate a/p pneumonia- continue zosyn check cultures, blood, urine, sputum, urinary antigens leukocytosis improved ct scan with acute left spenoid sinusitis continue ivf for FRANK copd- home oxygen Problem List - Problems (1) Leukocytosis Code(s): D72.829 - ELEVATED WHITE BLOOD CELL COUNT, UNSPECIFIED Qualifiers: Leukocytosis type: other Qualified Code(s): D72.828 - Other elevated white blood cell count (2) Pneumonia Code(s): J18.9 - PNEUMONIA, UNSPECIFIED ORGANISM Qualifiers: Pneumonia type: due to unspecified organism Laterality: right Lung location: lower lobe of lung Qualified Code(s): J18.1 - Lobar pneumonia, unspecified organism (3) Acute kidney failure Code(s): N17.9 - ACUTE KIDNEY FAILURE, UNSPECIFIED Qualifiers: Acute renal failure type: with other specified pathological lesion Qualified Code(s): N17.8 - Other acute kidney failure (4) COPD (chronic obstructive pulmonary disease) Code(s): J44.9 - CHRONIC OBSTRUCTIVE PULMONARY DISEASE, UNSPECIFIED Qualifiers : COPD type: unspecified COPD Qualified Code(s): J44.9 - Chronic obstructive pulmonary disease, unspecified
[2016-07-28] MEDS: DEXTROSE 5%-0.45% SALINE 1,000 ML IV SCH (16:07)
--- NOTE | 2016-07-28 16:33 | EKG ---
Test Reason : Blood Pressure : / mmHG Vent. Rate : 103 BPM Atrial Rate : 103 BPM P-R Int : 168 ms QRS Dur : 088 ms QT Int : 316 ms P-R-T Axes : 085 053 088 degrees QTc Int : 413 ms POOR DATA QUALITY, INTERPRETATION MAY BE ADVERSELY AFFECTED SINUS TACHYCARDIA WITH PREMATURE ATRIAL COMPLEXES MINIMAL VOLTAGE CRITERIA FOR LVH, MAY BE NORMAL VARIANT BORDERLINE ECG WHEN COMPARED WITH ECG OF 09-JUL-2016 19:27, PREMATURE VENTRICULAR COMPLEXES ARE NO LONGER PRESENT PREMATURE ATRIAL COMPLEXES ARE NOW PRESENT NONSPECIFIC T WAVE ABNORMALITY NOW EVIDENT IN LATERAL LEADS Confirmed by SILVINO HOLT MD ([id number]) on 07/28/2016 4:33:19 PM Referred By: Confirmed By:SILVINO HOLT MD
--- NOTE | 2016-07-28 23:18 | CONSULT ---
Consult - text type - Consultation Consultation Note: Pt is a 76 year old female with pmxh of CAD, HTN, Chol, pulmonary HTN, COPD, small cell cancer, ckd. and hypothyroidism who presents to the ER s.p fall. She was found to have worsening renal failure and I was called to evaluate her. She has had shortness of breath and cough. She had decrease PO intake prior to hospital admission. She was recently discharged a few weeks ago after an episode of hyperkalemia. Pt was also found to be septic likely from PNA and admitted for treatment. She does complain of shortness of breath. She denies dysuria. She is accompanied by her . - History Source History Provided By: Patient, Family Member, Medical Record - Past Medical History Cardio/Vascular: Yes: Aortic Stenosis, CAD (with coronary stenting), HTN, Hyperlipdemia, Mitral Insufficiency, Pulmonary Hypertension Pulmonary: Yes: Cancer (Chemothrerapy for small cell carcinoma- Dr Simpson), COPD Gastrointestinal: Yes: Diverticulosis, Other (Breast lumpectomy) Renal/: Yes: Renal Failure, Renal Inusuff Psych: Yes: Anxiety Musculoskeletal: Yes: Chronic low back pain, Osteoarthritis Endocrine: Yes: Hypothyroidism, Osteopenia - Past Surgical History Past Surgical History: Yes: Laminectomy (cervical ', lumbar '), Stent, Tonsillectomy, Tubal Ligation - Smoking History Smoking history: Former smoker - Allergies Allergies/Adverse Reactions: Allergies Allergy/AdvReac Type Severity Reaction Status Date / Time No Known Allergies Allergy Verified 07/26/16 17:51 - Home Medications Home Medications: Ambulatory Orders Citalopram Hydrobromide [Citalopram HBr] 40 mg PO DAILY 11/12/15 Cholecalciferol (Vitamin D3) [Vitamin D -] 1,000 unit PO DAILY 01/07/16 Levothyroxine [Synthroid -] 0.5 tab PO DAILY@0700 03/07/16 Aspirin Coated [Ecotrin -] 81 mg PO DAILY tablet.ec 04/01/16 Carvedilol [Coreg -] 25 mg PO BID #60 tablet 07/12/16 Budesonide/Formeterol Fumarate [SYMBICORT 160/4.5mcg -] 1 inh PO BID 07/26/16 Furosemide [Lasix] 40 mg PO DAILY 07/26/16 Prednisone 20 mg PO DAILY 07/26/16 Family Disease History - Family Disease History Family Disease History: CA: Father (diffuse unknown primary), Sister ( of lung cancer), Other: Mother ( after hip fracture) Physical Exam Vital Signs: Last Vital Signs Temp Pulse Resp BP Pulse Ox 98.5 F 83 17 129/78 95 07/29/16 06:00 07/29/16 06:00 07/29/16 06:00 07/29/16 06:00 07/28/16 21:00 cachectic Constitutional: Yes: Calm Eyes: Yes: Conjunctiva Clear HENT: Yes: Atraumatic Neck: Yes: Supple Cardiovascular: Yes: S1, S2 Respiratory: Yes: On Nasal O2, distant breath sounds Gastrointestinal: Yes: Soft Renal/: Yes: WNL Musculoskeletal: Yes: Muscle Weakness Labs: Impression 1. CKD 2. FRANK 3. hyperkalemia 4. CAD with cardiac stents/diastolic failure/ 5. HTN 6. Hyperlipidemia 7. Hypothyroidism 8. H/O [place] 9. Lung Ca 10. Anemia 11. sepsis 12. PNA 76 y/o patient with h/o breast Cancer --treated by --originally 8 yrs. ago s/p lumpectomy/RT/tamoxifen x 5yrs. ?? recurrence vs lung primary ---?? mediastinum --s/p chemo /RT in 2013 was on [place] /cis for 8 cycles then switched to gemzaar Has cisplatin induced neuropathy/CKD Now with pneumonia. CT scans--RLL peumonia/spheoid sinusitis/COPD will check bone scan give wt. loss, vague back pains will follow
[2016-07-29] MEDS: PIPERACILLIN/TAZOB 2.25 GM 50 ML IVPB SCH ×3 (02:33→18:16)
[2016-07-29] MEDS: methylPREDNISolone NA SUCC 40 MG/1 ML VIAL IVPB SCH ×4 (02:34→21:41)
[2016-07-29] MEDS: ACETAMINOPHEN 325 MG TABLET (FP) PO PRN (02:42)
[2016-07-29] MEDS: ALBUTEROL SO4 2.5/IPRATROPIUM 0.5 INH SOL 3 ML VIAL.NEB. NEB SCH ×3 (06:06→18:12)
[2016-07-29] MEDS: LEVOTHYROXINE NA 88 MCG TABLET (FP) PO SCH (06:20)
[2016-07-29] MEDS: DEXTROSE 5%-0.45% SALINE 1,000 ML IV SCH ×3 (06:21→22:32)
--- NOTE | 2016-07-29 10:24 | PN ---
Progress Note, Physician Chief Complaint: Weakness and fatigue SOB Atypical chest pain History of Present Illness: Patient came in the hospital for PNE, Pleural effusion, dehydration and leukocytosis. Patient lying in bed comfortably, Feels better. - Current Medication List Current Medications: Active Medications Acetaminophen (Tylenol -) 650 mg PO Q4H PRN PRN Reason: FEVER OR PAIN Last Admin: 07/29/16 02:42 Dose: 650 mg Albuterol/Ipratropium (Duoneb -) 1 amp NEB QIDR [facility] Last Admin: 07/29/16 06:06 Dose: 1 amp Aspirin (Ecotrin -) 81 mg PO DAILY [facility] Last Admin: 07/28/16 10:57 Dose: 81 mg Budesonide/Formoterol Fumarate (Symbicort 160/4.5mcg -) 2 puff IH BID [facility] Last Admin: 07/28/16 21:54 Dose: 2 puff Carvedilol (Coreg -) 12.5 mg PO BID [facility] Last Admin: 07/28/16 21:54 Dose: 12.5 mg Cholecalciferol (Vitamin D3 -) 1,000 unit PO DAILY [facility] Last Admin: 07/28/16 10:58 Dose: 1,000 unit Citalopram Hydrobromide (Celexa -) 40 mg PO DAILY [facility] Last Admin: 07/28/16 10:57 Dose: 40 mg Heparin Sodium (Porcine) (Heparin -) 5,000 unit SQ BID [facility] Last Admin: 07/28/16 21:54 Dose: 5,000 unit Dextrose/Sodium Chloride (D5-1/2ns -) 1,000 mls @ 75 mls/hr IV ASDIR [facility] Last Admin: 07/29/16 06:21 Dose: 75 mls/hr Piperacillin Sod/Tazobactam Sod (Zosyn 2.25gm Ivpb (Pre-Docked)) 50 mls @ 100 mls/hr IVPB Q8H-IV [facility] PRN Reason: Protocol Last Admin: 07/29/16 02:33 Dose: 100 mls/hr Levothyroxine Sodium (Synthroid -) 88 mcg PO DAILY@0700 [facility] Last Admin: 07/29/16 06:20 Dose: 88 mcg Methylprednisolone Sodium Succinate (Solu-Medrol -) 40 mg IVPB Q6H-IV [facility] Last Admin: 07/29/16 02:34 Dose: 40 mg Oxycodone HCl (Roxicodone -) 5 mg PO Q6H PRN PRN Reason: PAIN Pantoprazole Sodium (Protonix -) 40 mg PO DAILY [facility] Last Admin: 07/28/16 10:57 Dose: 40 mg - Objective Vital Signs: Vital Signs Temperature 98.5 F 07/29/16 06:00 Pulse Rate 83 07/29/16 06:00 Respiratory Rate 17 07/29/16 06:00 Blood Pressure 129/78 07/29/16 06:00 O2 Sat by Pulse Oximetry (%) 95 07/28/16 21:00 Constitutional: Yes: Well Nourished, No Distress, Calm Cardiovascular: Yes: Regular Rate and Rhythm Respiratory: Yes: Regular, Rales (BLLL) Gastrointestinal: Yes: Normal Bowel Sounds Musculoskeletal: Yes: WNL Extremities: Yes: WNL Edema: No Peripheral Pulses WNL: Yes ...Motor Strength: WNL (GENERALIZED WEAKNESS) Labs: CBC, BMP 07/28/16 06:05 07/28/16 06:05 Problem List - Problems (1) Acute on chronic renal failure Assessment/Plan: Renal on the case, renal status stable, IVF Code(s): N17.9 - ACUTE KIDNEY FAILURE, UNSPECIFIED N18.9 - CHRONIC KIDNEY DISEASE, UNSPECIFIED Qualifiers: Acute renal failure type: unspecified Chronic kidney disease stage: unspecified stage Qualified Code(s): N17.9 - Acute kidney failure, unspecified; N18.9 - Chronic kidney disease, unspecified (2) COPD (chronic obstructive pulmonary disease) Assessment/Plan: PULMONARY CONSULTS NEBULIZER TX O2 THERAPY NO CHANGES IN CXR Code(s): J44.9 - CHRONIC OBSTRUCTIVE PULMONARY DISEASE, UNSPECIFIED Qualifiers : COPD type: unspecified COPD Qualified Code(s): J44.9 - Chronic obstructive pulmonary disease, unspecified (3) Hypoxia Assessment/Plan: STABLE ON O2 TX Code(s): R09.02 - HYPOXEMIA (4) Leukocytosis Assessment/Plan: SECONDARY TO STEROIDS AND PNE. REPEAT LABS TODAY. Code(s): D72.829 - ELEVATED WHITE BLOOD CELL COUNT, UNSPECIFIED Qualifiers: Leukocytosis type: other Qualified Code(s): D72.828 - Other elevated white blood cell count (5) Pneumonia Assessment/Plan: IV ABX, ID CONSULT, GRADUALLY IMPROVING. Code(s): J18.9 - PNEUMONIA, UNSPECIFIED ORGANISM Qualifiers: Pneumonia type: due to unspecified organism Laterality: right Lung location: lower lobe of lung Qualified Code(s): J18.1 - Lobar pneumonia, unspecified organism (6) Weakness Assessment/Plan: ORDERED PHYSICAL THERAPY. NURSING TO ENFORCE EARLY AMBULATION TOLERATED. Code(s): R53.1 - WEAKNESS Assessment/Plan CONTINUE CURRENT REGIMEN PHYSICAL THERAPY MONITOR LABS AND RENAL FUNCTION.
[2016-07-29] MEDS: HEPARIN NA (PORCINE) 5,000 UNITS/ML 1ML VIAL SQ SCH ×2 (10:40→21:41)
[2016-07-29] MEDS: CARVEDILOL 12.5 MG TABLET (FP) PO SCH ×2 (10:41→21:42)
[2016-07-29] MEDS: ASPIRIN COATED 81 MG TABLET.EC PO SCH (10:41)
[2016-07-29] MEDS: PANTOPRAZOLE 40 MG TABLET (FP) PO SCH (10:41)
[2016-07-29] MEDS: CITALOPRAM HYDROBROMIDE 20 MG TABLET (FP) PO SCH (10:41)
[2016-07-29] MEDS: CHOLECALCIFEROL (VITAMIN D3) 1,000 UNIT TABLET (FP) PO SCH (10:42)
[2016-07-29] MEDS: BUDESONIDE/FORMETEROL FUMARATE 160/4.5 mcg INHALER IH SCH ×2 (10:42→21:41)
[2016-07-29 11:33] LABS: BASOPHIL 0.1 % (0-2.0); MCH 29.4 pg (25.7-33.7); MCHC 32.8 g/dl (32.0-36.0); MEAN CELL VOLUME 89.7 fl (80-96); MEAN PLT VOLUME 6.7 fl (7.5-11.1); NEUTROPHILS 95.3 % (42.8-82.8); PLATELET COUNT 355 K/MM3 (134-434); RDW 15.2 % (11.6-15.6); WHITE BLOOD COUNT 18.3 K/mm3 (4.0-10.0)
[2016-07-29 12:01] LABS: ALBUMIN 2.1 g/dl (3.4-5.0); BILIRUBIN,TOTAL 0.2 mg/dL (0.2-1.0); CALCIUM 8.1 mg/dL (8.5-10.1); COCKROFT - GAULT 10.421; CREATININE 3.1 mg/dL (0.55-1.02); TOT PROT 6.2 g/dl (6.4-8.2)
--- NOTE | 2016-07-29 13:17 | PN ---
Progress Note (short form) - Note Progress Note: PULMONARY AWAKE/ALERT VSS/AFEBRILE ANICTERIC BIBASILAR RHONCHI RIGHT GREATER THAN LEFT S1S2 BS+ NO EDEMA LABS/MEDS/IMAGING/NOTES/MICRO REVIEWED WBC TRENDING DOWN IMP RLL PNEUMONIA CHRONIC HYPOXEMIA RESPIRATORY FAILURE ON O2 ADVANCED COPD H/O LUNG CA SMALL CELL S/P CHEMO H/O BREAST CA S/P LUMPECTOMY PULMONARY HTN ASHD S/P STENTS AORTIC STENOSIS ACUTE ON CHRONIC RENAL FAILURE PLAN IV ANTIBIOTICS/STEROIDS NASAL O2 INHALED BRONCHODILATORS URINE AGS NEGATIVE DVT PROPHYLAXIS MONITOR RENAL FUNCTION Francois ROBERTS MD
--- NOTE | 2016-07-29 15:48 | PN ---
Progress Note, Physician History of Present Illness: Awake, responsive Breathing non-labored Afebrile WBC improved Sputum presumptive Pseudomonas - Current Medication List Current Medications: Active Medications Acetaminophen (Tylenol -) 650 mg PO Q4H PRN PRN Reason: FEVER OR PAIN Last Admin: 07/29/16 02:42 Dose: 650 mg Albuterol/Ipratropium (Duoneb -) 1 amp NEB QIDR [facility] Last Admin: 07/29/16 11:59 Dose: Not Given Aspirin (Ecotrin -) 81 mg PO DAILY [facility] Last Admin: 07/29/16 10:41 Dose: 81 mg Budesonide/Formoterol Fumarate (Symbicort 160/4.5mcg -) 2 puff IH BID [facility] Last Admin: 07/29/16 10:42 Dose: 2 puff Carvedilol (Coreg -) 12.5 mg PO BID [facility] Last Admin: 07/29/16 10:41 Dose: 12.5 mg Cholecalciferol (Vitamin D3 -) 1,000 unit PO DAILY [facility] Last Admin: 07/29/16 10:42 Dose: 1,000 unit Citalopram Hydrobromide (Celexa -) 40 mg PO DAILY [facility] Last Admin: 07/29/16 10:41 Dose: 40 mg Heparin Sodium (Porcine) (Heparin -) 5,000 unit SQ BID [facility] Last Admin: 07/29/16 10:40 Dose: 5,000 unit Dextrose/Sodium Chloride (D5-1/2ns -) 1,000 mls @ 75 mls/hr IV ASDIR [facility] Last Admin: 07/29/16 06:21 Dose: 75 mls/hr Piperacillin Sod/Tazobactam Sod (Zosyn 2.25gm Ivpb (Pre-Docked)) 50 mls @ 100 mls/hr IVPB Q8H-IV [facility] PRN Reason: Protocol Last Admin: 07/29/16 10:41 Dose: 100 mls/hr Levothyroxine Sodium (Synthroid -) 88 mcg PO DAILY@0700 [facility] Last Admin: 07/29/16 06:20 Dose: 88 mcg Methylprednisolone Sodium Succinate (Solu-Medrol -) 40 mg IVPB Q6H-IV [facility] Last Admin: 07/29/16 09:55 Dose: 40 mg Oxycodone HCl (Roxicodone -) 5 mg PO Q6H PRN PRN Reason: PAIN Pantoprazole Sodium (Protonix -) 40 mg PO DAILY [facility] Last Admin: 07/29/16 10:41 Dose: 40 mg - Objective Vital Signs: Vital Signs Temperature 98.5 F 07/29/16 06:00 Pulse Rate 83 07/29/16 06:00 Respiratory Rate 17 07/29/16 06:00 Blood Pressure 129/78 07/29/16 06:00 O2 Sat by Pulse Oximetry (%) 95 07/28/16 21:00 Constitutional: Yes: No Distress Eyes: Yes: Conjunctiva Clear Cardiovascular: Yes: Regular Rate and Rhythm, S1, S2 Respiratory: Yes: Diminished Gastrointestinal: Yes: Normal Bowel Sounds, Soft. No: Tenderness Labs: CBC, BMP 07/29/16 11:08 07/29/16 11:08 Assessment/Plan RLL pneumonia Exacerbation COPD Small cell ca lung Renal failure Leukocytosis-improved Await c/s Continue zosyn
--- NOTE | 2016-07-29 15:53 | PN ---
Progress Note, Physician History of Present Illness: Pt seen and examined at bedside. She is awake and appears more comfortable today. - Current Medication List Current Medications: Active Medications Acetaminophen (Tylenol -) 650 mg PO Q4H PRN PRN Reason: FEVER OR PAIN Last Admin: 07/29/16 02:42 Dose: 650 mg Albuterol/Ipratropium (Duoneb -) 1 amp NEB QIDR [facility] Last Admin: 07/29/16 11:59 Dose: Not Given Aspirin (Ecotrin -) 81 mg PO DAILY [facility] Last Admin: 07/29/16 10:41 Dose: 81 mg Budesonide/Formoterol Fumarate (Symbicort 160/4.5mcg -) 2 puff IH BID [facility] Last Admin: 07/29/16 10:42 Dose: 2 puff Carvedilol (Coreg -) 12.5 mg PO BID [facility] Last Admin: 07/29/16 10:41 Dose: 12.5 mg Cholecalciferol (Vitamin D3 -) 1,000 unit PO DAILY [facility] Last Admin: 07/29/16 10:42 Dose: 1,000 unit Citalopram Hydrobromide (Celexa -) 40 mg PO DAILY [facility] Last Admin: 07/29/16 10:41 Dose: 40 mg Heparin Sodium (Porcine) (Heparin -) 5,000 unit SQ BID [facility] Last Admin: 07/29/16 10:40 Dose: 5,000 unit Dextrose/Sodium Chloride (D5-1/2ns -) 1,000 mls @ 75 mls/hr IV ASDIR [facility] Last Admin: 07/29/16 06:21 Dose: 75 mls/hr Piperacillin Sod/Tazobactam Sod (Zosyn 2.25gm Ivpb (Pre-Docked)) 50 mls @ 100 mls/hr IVPB Q8H-IV [facility] PRN Reason: Protocol Last Admin: 07/29/16 10:41 Dose: 100 mls/hr Levothyroxine Sodium (Synthroid -) 88 mcg PO DAILY@0700 [facility] Last Admin: 07/29/16 06:20 Dose: 88 mcg Methylprednisolone Sodium Succinate (Solu-Medrol -) 40 mg IVPB Q6H-IV [facility] Last Admin: 07/29/16 09:55 Dose: 40 mg Oxycodone HCl (Roxicodone -) 5 mg PO Q6H PRN PRN Reason: PAIN Pantoprazole Sodium (Protonix -) 40 mg PO DAILY [facility] Last Admin: 07/29/16 10:41 Dose: 40 mg - Objective Vital Signs: Vital Signs Temperature 98.5 F 07/29/16 06:00 Pulse Rate 83 07/29/16 06:00 Respiratory Rate 17 07/29/16 06:00 Blood Pressure 129/78 07/29/16 06:00 O2 Sat by Pulse Oximetry (%) 95 07/28/16 21:00 Constitutional: Yes: Calm Eyes: Yes: Conjunctiva Clear HENT: Yes: Atraumatic Neck: Yes: Supple Cardiovascular: Yes: S1, S2 Respiratory: Yes: On Nasal O2, Wheezes Gastrointestinal: Yes: Soft Genitourinary: Yes: WNL Musculoskeletal: Yes: WNL Edema: No Neurological: Yes: Oriented Psychiatric: Yes: Oriented Labs: CBC, BMP 07/29/16 11:08 07/29/16 11:08 Problem List - Problems (1) Acute on chronic renal failure Code(s): N17.9 - ACUTE KIDNEY FAILURE, UNSPECIFIED N18.9 - CHRONIC KIDNEY DISEASE, UNSPECIFIED Qualifiers: Acute renal failure type: unspecified Chronic kidney disease stage: unspecified stage Qualified Code(s): N17.9 - Acute kidney failure, unspecified; N18.9 - Chronic kidney disease, unspecified (2) COPD (chronic obstructive pulmonary disease) Code(s): J44.9 - CHRONIC OBSTRUCTIVE PULMONARY DISEASE, UNSPECIFIED Qualifiers : COPD type: unspecified COPD Qualified Code(s): J44.9 - Chronic obstructive pulmonary disease, unspecified (3) Chronic hypoxemic respiratory failure Code(s): J96.11 - CHRONIC RESPIRATORY FAILURE WITH HYPOXIA (4) Hyperkalemia Code(s): E87.5 - HYPERKALEMIA (5) Hypoxia Code(s): R09.02 - HYPOXEMIA (6) Leukocytosis Code(s): D72.829 - ELEVATED WHITE BLOOD CELL COUNT, UNSPECIFIED Qualifiers: Leukocytosis type: other Qualified Code(s): D72.828 - Other elevated white blood cell count (7) Pneumonia Code(s): J18.9 - PNEUMONIA, UNSPECIFIED ORGANISM Qualifiers: Pneumonia type: due to unspecified organism Laterality: right Lung location: lower lobe of lung Qualified Code(s): J18.1 - Lobar pneumonia, unspecified organism (8) Breast CA Code(s): C50.919 - MALIGNANT NEOPLASM OF UNSP SITE OF UNSPECIFIED FEMALE BREAST (9) CAD (coronary artery disease) Code(s): I25.10 - ATHSCL HEART DISEASE OF [place] CORONARY ARTERY W/O ANG PCTRS Qualifiers: Coronary Disease-Associated Artery/Lesion type: [place] artery [place] vs. transplanted heart: [place] heart Associated angina: without angina Qualified Code(s): I25.10 - Atherosclerotic heart disease of [place] coronary artery without angina pectoris Assessment/Plan Current Medications Generic Name Dose Route Start Last Admin Trade Name Freq PRN Reason Stop Dose Admin Acetaminophen 650 mg 07/27/16 09:14 07/29/16 02:42 Tylenol - PO 650 mg Q4H PRN Administration FEVER OR PAIN Albuterol/Ipratropium 1 amp 07/27/16 12:00 07/29/16 11:59 Duoneb - NEB Not Given QIDR [facility] Aspirin 81 mg 07/27/16 10:00 07/29/16 10:41 Ecotrin - PO 81 mg DAILY [facility] Administration Budesonide/Formoterol Fumarate 2 puff 07/27/16 10:00 07/29/16 10:42 Symbicort 160/4.5mcg - IH 2 puff BID [facility] Administration Carvedilol 12.5 mg 07/27/16 22:00 07/29/16 10:41 Coreg - PO 12.5 mg BID [facility] Administration Cholecalciferol 1,000 unit 07/27/16 10:00 07/29/16 10:42 Vitamin D3 - PO 1,000 unit DAILY [facility] Administration Citalopram Hydrobromide 40 mg 07/27/16 10:00 07/29/16 10:41 Celexa - PO 40 mg DAILY [facility] Administration Heparin Sodium (Porcine) 5,000 unit 07/27/16 10:00 07/29/16 10:40 Heparin - SQ 5,000 unit BID [facility] Administration Dextrose/Sodium Chloride 1,000 mls @ 75 mls/hr 07/27/16 09:15 07/29/16 06:21 D5-1/2ns - IV 75 mls/hr ASDIR [facility] Administration Piperacillin Sod/Tazobactam Sod 50 mls @ 100 mls/hr 07/27/16 12:00 07/29/16 10: 41 Zosyn 2.25gm Ivpb (Pre-Docked) IVPB 100 mls/hr Q8H-IV [facility] Administration Protocol Levothyroxine Sodium 88 mcg 07/28/16 07:00 07/29/16 06:20 Synthroid - PO 88 mcg DAILY@0700 [facility] Administration Methylprednisolone Sodium Succinate 40 mg 07/27/16 15:00 07/29/16 09:55 Solu-Medrol - IVPB 40 mg Q6H-IV [facility] Administration Oxycodone HCl 5 mg 07/27/16 09:14 Roxicodone - PO Q6H PRN PAIN Pantoprazole Sodium 40 mg 07/27/16 10:00 07/29/16 10:41 Protonix - PO 40 mg DAILY [facility] Administration Impression 1. CKD 2. FRANK 3. hyperkalemia 4. CAD with cardiac stents 5. HTN 6. Hyperlipidemia 7. Hypothyroidism 8. H/O Breast 9. Lung Ca 10. Anemia 11. sepsis 12. PNA Plan - renal function is starting to improve - repeat labs in am to check creatinine - cont with fluids - cont with abx - follow cultures - will follow pt Dr Schilling
[2016-07-29] MEDS ORDERED: PT OWN MED DRAWER 7, Y5N ONE ×2 (18:29→21:34)
[2016-07-30] MEDS: ALBUTEROL SO4 2.5/IPRATROPIUM 0.5 INH SOL 3 ML VIAL.NEB. NEB SCH ×4 (00:10→18:50)
[2016-07-30] MEDS: PIPERACILLIN/TAZOB 2.25 GM 50 ML IVPB SCH ×3 (01:58→18:06)
[2016-07-30] MEDS: methylPREDNISolone NA SUCC 40 MG/1 ML VIAL IVPB SCH ×2 (02:01→10:01)
[2016-07-30] MEDS: LEVOTHYROXINE NA 88 MCG TABLET (FP) PO SCH (06:04)
[2016-07-30] MEDS ORDERED: PT OWN MED DRAWER 7, Y5N ONE ×2 (06:24→12:35)
[2016-07-30 08:19] LABS: CALCIUM 8.1 mg/dL (8.5-10.1); COCKROFT - GAULT 11.696; CREATININE 2.8 mg/dL (0.55-1.02)
[2016-07-30] MEDS: HEPARIN NA (PORCINE) 5,000 UNITS/ML 1ML VIAL SQ SCH ×2 (10:01→21:18)
[2016-07-30] MEDS: CITALOPRAM HYDROBROMIDE 20 MG TABLET (FP) PO SCH (10:03)
[2016-07-30] MEDS: CHOLECALCIFEROL (VITAMIN D3) 1,000 UNIT TABLET (FP) PO SCH (10:03)
[2016-07-30] MEDS: ASPIRIN COATED 81 MG TABLET.EC PO SCH (10:05)
[2016-07-30] MEDS: CARVEDILOL 12.5 MG TABLET (FP) PO SCH ×2 (10:05→21:18)
[2016-07-30] MEDS: PANTOPRAZOLE 40 MG TABLET (FP) PO SCH (10:05)
--- NOTE | 2016-07-30 10:57 | PN ---
Progress Note, Physician History of Present Illness: Awake, alert Slightly dyspneic on nasal cannula O2 C/O cough No complaints of chest pain, F/C Afebrile WBC improved Sputum c/s pending - Current Medication List Current Medications: Active Medications Acetaminophen (Tylenol -) 650 mg PO Q4H PRN PRN Reason: FEVER OR PAIN Last Admin: 07/29/16 02:42 Dose: 650 mg Albuterol/Ipratropium (Duoneb -) 1 amp NEB QIDR [facility] Last Admin: 07/30/16 06:06 Dose: Not Given Aspirin (Ecotrin -) 81 mg PO DAILY [facility] Last Admin: 07/30/16 10:05 Dose: 81 mg Budesonide/Formoterol Fumarate (Symbicort 160/4.5mcg -) 2 puff IH BID [facility] Last Admin: 07/29/16 21:41 Dose: 2 puff Carvedilol (Coreg -) 12.5 mg PO BID [facility] Last Admin: 07/30/16 10:05 Dose: 12.5 mg Cholecalciferol (Vitamin D3 -) 1,000 unit PO DAILY [facility] Last Admin: 07/30/16 10:03 Dose: 1,000 unit Citalopram Hydrobromide (Celexa -) 40 mg PO DAILY [facility] Last Admin: 07/30/16 10:03 Dose: 40 mg Heparin Sodium (Porcine) (Heparin -) 5,000 unit SQ BID [facility] Last Admin: 07/30/16 10:01 Dose: 5,000 unit Dextrose/Sodium Chloride (D5-1/2ns -) 1,000 mls @ 75 mls/hr IV ASDIR [facility] Last Admin: 07/29/16 22:32 Dose: 75 mls/hr Piperacillin Sod/Tazobactam Sod (Zosyn 2.25gm Ivpb (Pre-Docked)) 50 mls @ 100 mls/hr IVPB Q8H-IV [facility] PRN Reason: Protocol Last Admin: 07/30/16 01:58 Dose: 100 mls/hr Levothyroxine Sodium (Synthroid -) 88 mcg PO DAILY@0700 [facility] Last Admin: 07/30/16 06:04 Dose: 88 mcg Methylprednisolone Sodium Succinate (Solu-Medrol -) 40 mg IVPB Q6H-IV [facility] Last Admin: 07/30/16 10:01 Dose: 40 mg Pantoprazole Sodium (Protonix -) 40 mg PO DAILY [facility] Last Admin: 07/30/16 10:05 Dose: 40 mg - Objective Vital Signs: Vital Signs Temperature 98.8 F 07/30/16 06:00 Pulse Rate 83 07/30/16 06:00 Respiratory Rate 18 07/30/16 06:00 Blood Pressure 150/71 07/30/16 06:00 O2 Sat by Pulse Oximetry (%) 95 07/29/16 21:00 Constitutional: Yes: No Distress, Cachectic Eyes: Yes: Conjunctiva Clear Cardiovascular: Yes: Regular Rate and Rhythm, S1, S2 Respiratory: Yes: Other (+ rales L base > R) Gastrointestinal: Yes: Normal Bowel Sounds, Soft. No: Tenderness Edema: No Labs: CBC, BMP 07/29/16 11:08 07/30/16 06:30 Assessment/Plan RLL pneumonia Exacerbation COPD Small cell ca lung Renal failure Leukocytosis-improved Await sputum c/s Continue zosyn
--- NOTE | 2016-07-30 11:09 | PN ---
Progress Note, Physician History of Present Illness: WEAKNESS LESS SOB - Current Medication List Current Medications: Active Medications Acetaminophen (Tylenol -) 650 mg PO Q4H PRN PRN Reason: FEVER OR PAIN Last Admin: 07/29/16 02:42 Dose: 650 mg Albuterol/Ipratropium (Duoneb -) 1 amp NEB QIDR [facility] Last Admin: 07/30/16 06:06 Dose: Not Given Aspirin (Ecotrin -) 81 mg PO DAILY [facility] Last Admin: 07/30/16 10:05 Dose: 81 mg Budesonide/Formoterol Fumarate (Symbicort 160/4.5mcg -) 2 puff IH BID [facility] Last Admin: 07/29/16 21:41 Dose: 2 puff Carvedilol (Coreg -) 12.5 mg PO BID [facility] Last Admin: 07/30/16 10:05 Dose: 12.5 mg Cholecalciferol (Vitamin D3 -) 1,000 unit PO DAILY [facility] Last Admin: 07/30/16 10:03 Dose: 1,000 unit Citalopram Hydrobromide (Celexa -) 40 mg PO DAILY [facility] Last Admin: 07/30/16 10:03 Dose: 40 mg Heparin Sodium (Porcine) (Heparin -) 5,000 unit SQ BID [facility] Last Admin: 07/30/16 10:01 Dose: 5,000 unit Dextrose/Sodium Chloride (D5-1/2ns -) 1,000 mls @ 75 mls/hr IV ASDIR [facility] Last Admin: 07/29/16 22:32 Dose: 75 mls/hr Piperacillin Sod/Tazobactam Sod (Zosyn 2.25gm Ivpb (Pre-Docked)) 50 mls @ 100 mls/hr IVPB Q8H-IV [facility] PRN Reason: Protocol Last Admin: 07/30/16 01:58 Dose: 100 mls/hr Levothyroxine Sodium (Synthroid -) 88 mcg PO DAILY@0700 [facility] Last Admin: 07/30/16 06:04 Dose: 88 mcg Methylprednisolone Sodium Succinate (Solu-Medrol -) 40 mg IVPB Q6H-IV [facility] Last Admin: 07/30/16 10:01 Dose: 40 mg Pantoprazole Sodium (Protonix -) 40 mg PO DAILY [facility] Last Admin: 07/30/16 10:05 Dose: 40 mg - Objective Vital Signs: Vital Signs Temperature 98.8 F 07/30/16 06:00 Pulse Rate 83 07/30/16 06:00 Respiratory Rate 18 07/30/16 06:00 Blood Pressure 150/71 07/30/16 06:00 O2 Sat by Pulse Oximetry (%) 95 07/29/16 21:00 Cardiovascular: Yes: S1, S2 Respiratory: Yes: Regular, CTA Bilaterally Gastrointestinal: Yes: Normal Bowel Sounds, Soft Labs: CBC, BMP 07/29/16 11:08 07/30/16 06:30 Problem List - Problems (1) Acute on chronic renal failure Assessment/Plan: IVF MONITOR RENAL FUNCTION Laboratory Tests 07/29/16 07/30/16 11:08 06:30 Creatinine 3.1 H 2.8 H Code(s): N17.9 - ACUTE KIDNEY FAILURE, UNSPECIFIED N18.9 - CHRONIC KIDNEY DISEASE, UNSPECIFIED Qualifiers: Acute renal failure type: unspecified Chronic kidney disease stage: unspecified stage Qualified Code(s): N17.9 - Acute kidney failure, unspecified; N18.9 - Chronic kidney disease, unspecified (2) COPD (chronic obstructive pulmonary disease) Assessment/Plan: NEBS STEROIDS IV TAPER PULM Code(s): J44.9 - CHRONIC OBSTRUCTIVE PULMONARY DISEASE, UNSPECIFIED Qualifiers : COPD type: unspecified COPD Qualified Code(s): J44.9 - Chronic obstructive pulmonary disease, unspecified (3) Leukocytosis Assessment/Plan: STEROIDS AND PNEUMONIA Code(s): D72.829 - ELEVATED WHITE BLOOD CELL COUNT, UNSPECIFIED Qualifiers: Leukocytosis type: other Qualified Code(s): D72.828 - Other elevated white blood cell count (4) Pneumonia Assessment/Plan: IV ABX CULTURES Microbiology 07/27/16 16:30 Gram Stain - Final Sputum - Expectorated Sputum Culture - Final Pseudomonas Aeruginosa Yeast Like Organism 07/30/16 09:00 Clostridium difficile Antigen (SAE) - Final Stool Clostridium difficile Toxin Assay - Final 07/27/16 10:00 Blood Culture - Preliminary Blood - Peripheral Venous NO GROWTH OBTAINED AFTER 72 HOURS, INCUBATION TO CONTINUE FOR 2 DAYS. 07/27/16 10:00 Blood Culture - Preliminary Blood - Peripheral Venous NO GROWTH OBTAINED AFTER 72 HOURS, INCUBATION TO CONTINUE FOR 2 DAYS. CXR Code(s): J18.9 - PNEUMONIA, UNSPECIFIED ORGANISM Qualifiers: Pneumonia type: due to unspecified organism Laterality: right Lung location: lower lobe of lung Qualified Code(s): J18.1 - Lobar pneumonia, unspecified organism (5) CHF (congestive heart failure) Code(s): I50.9 - HEART FAILURE, UNSPECIFIED (6) Lung cancer Code(s): C34.90 - MALIGNANT NEOPLASM OF UNSP PART OF UNSP BRONCHUS OR LUNG Qualifiers: Lung location: unspecified part of lung
--- NOTE | 2016-07-30 11:12 | PN ---
Progress Note, Physician History of Present Illness: Renal f/u Pt in no distress On Zosyn for RLL pneumonia Azotemia better Sputum + for Pseudomonas BC negative - Current Medication List Current Medications: Active Medications Acetaminophen (Tylenol -) 650 mg PO Q4H PRN PRN Reason: FEVER OR PAIN Last Admin: 07/29/16 02:42 Dose: 650 mg Albuterol/Ipratropium (Duoneb -) 1 amp NEB QIDR [facility] Last Admin: 07/30/16 06:06 Dose: Not Given Aspirin (Ecotrin -) 81 mg PO DAILY [facility] Last Admin: 07/30/16 10:05 Dose: 81 mg Budesonide/Formoterol Fumarate (Symbicort 160/4.5mcg -) 2 puff IH BID [facility] Last Admin: 07/29/16 21:41 Dose: 2 puff Carvedilol (Coreg -) 12.5 mg PO BID [facility] Last Admin: 07/30/16 10:05 Dose: 12.5 mg Cholecalciferol (Vitamin D3 -) 1,000 unit PO DAILY [facility] Last Admin: 07/30/16 10:03 Dose: 1,000 unit Citalopram Hydrobromide (Celexa -) 40 mg PO DAILY [facility] Last Admin: 07/30/16 10:03 Dose: 40 mg Heparin Sodium (Porcine) (Heparin -) 5,000 unit SQ BID [facility] Last Admin: 07/30/16 10:01 Dose: 5,000 unit Dextrose/Sodium Chloride (D5-1/2ns -) 1,000 mls @ 75 mls/hr IV ASDIR [facility] Last Admin: 07/29/16 22:32 Dose: 75 mls/hr Piperacillin Sod/Tazobactam Sod (Zosyn 2.25gm Ivpb (Pre-Docked)) 50 mls @ 100 mls/hr IVPB Q8H-IV [facility] PRN Reason: Protocol Last Admin: 07/30/16 01:58 Dose: 100 mls/hr Levothyroxine Sodium (Synthroid -) 88 mcg PO DAILY@0700 [facility] Last Admin: 07/30/16 06:04 Dose: 88 mcg Methylprednisolone Sodium Succinate (Solu-Medrol -) 40 mg IVPB Q6H-IV [facility] Last Admin: 07/30/16 10:01 Dose: 40 mg Pantoprazole Sodium (Protonix -) 40 mg PO DAILY [facility] Last Admin: 07/30/16 10:05 Dose: 40 mg - Objective Vital Signs: Vital Signs Temperature 98.8 F 07/30/16 06:00 Pulse Rate 83 07/30/16 06:00 Respiratory Rate 18 07/30/16 06:00 Blood Pressure 150/71 07/30/16 06:00 O2 Sat by Pulse Oximetry (%) 95 07/29/16 21:00 Cardiovascular: Yes: S1, S2 Respiratory: Yes: Rhonchi, Other Gastrointestinal: Yes: Soft. No: Tenderness, Rebound Edema: No Labs: CBC, BMP 07/29/16 11:08 07/30/16 06:30 Assessment/Plan Impression 1. Acute on CKD improving 2. PNA with sepsis 3. S/P hyperkalemia 4. CAD with cardiac stents 5. HTN 6. Hyperlipidemia 7. Hypothyroidism 8. H/O Breast 9. Lung Ca 10. Anemia Plan - Rpt labs in am - cIVF as ordered - Abx as per ID Dr Walker
[2016-07-30] MEDS: BUDESONIDE/FORMETEROL FUMARATE 160/4.5 mcg INHALER IH SCH ×2 (12:38→21:19)
--- NOTE | 2016-07-30 14:16 | PN ---
Progress Note (short form) - Note Progress Note: PULMONARY AWAKE/ALERT VSS/AFEBRILE ANICTERIC BIBASILAR RHONCHI RIGHT GREATER THAN LEFT S1S2 BS+ NO EDEMA LABS/MEDS/IMAGING/NOTES/MICRO REVIEWED WBC TRENDING DOWN IMP RLL PNEUMONIA CHRONIC HYPOXEMIA RESPIRATORY FAILURE ON O2 ADVANCED COPD H/O LUNG CA SMALL CELL S/P CHEMO H/O BREAST CA S/P LUMPECTOMY PULMONARY HTN ASHD S/P STENTS AORTIC STENOSIS ACUTE ON CHRONIC RENAL FAILURE PLAN IV ANTIBIOTICS/STEROIDS TO BE TAPERED NASAL O2 INHALED BRONCHODILATORS URINE AGS NEGATIVE DVT PROPHYLAXIS MONITOR RENAL FUNCTION Francois ROBERTS MD
[2016-07-30] MEDS: DEXTROSE 5%-0.45% SALINE 1,000 ML IV SCH (15:38)
--- NOTE | 2016-07-30 20:41 | PN ---
Progress Note, Physician Chief Complaint: Events noted Not in distress Intermittent dyspnea but less Generalized weakness History of Present Illness: Patient was seen and examined. Awake and alert. Chart was reviewed Denies chest pain or palpitations. Less SOB Denies dizziness - Current Medication List Current Medications: Active Medications Acetaminophen (Tylenol -) 650 mg PO Q4H PRN PRN Reason: FEVER OR PAIN Last Admin: 07/29/16 02:42 Dose: 650 mg Albuterol/Ipratropium (Duoneb -) 1 amp NEB QIDR [facility] Last Admin: 07/30/16 18:50 Dose: Not Given Aspirin (Ecotrin -) 81 mg PO DAILY [facility] Last Admin: 07/30/16 10:05 Dose: 81 mg Budesonide/Formoterol Fumarate (Symbicort 160/4.5mcg -) 2 puff IH BID [facility] Last Admin: 07/30/16 12:38 Dose: 2 puff Carvedilol (Coreg -) 12.5 mg PO BID [facility] Last Admin: 07/30/16 10:05 Dose: 12.5 mg Cholecalciferol (Vitamin D3 -) 1,000 unit PO DAILY [facility] Last Admin: 07/30/16 10:03 Dose: 1,000 unit Citalopram Hydrobromide (Celexa -) 40 mg PO DAILY [facility] Last Admin: 07/30/16 10:03 Dose: 40 mg Heparin Sodium (Porcine) (Heparin -) 5,000 unit SQ BID [facility] Last Admin: 07/30/16 10:01 Dose: 5,000 unit Dextrose/Sodium Chloride (D5-1/2ns -) 1,000 mls @ 75 mls/hr IV ASDIR [facility] Last Admin: 07/30/16 15:38 Dose: 75 mls/hr Piperacillin Sod/Tazobactam Sod (Zosyn 2.25gm Ivpb (Pre-Docked)) 50 mls @ 100 mls/hr IVPB Q8H-IV [facility] PRN Reason: Protocol Last Admin: 07/30/16 18:06 Dose: 100 mls/hr Levothyroxine Sodium (Synthroid -) 88 mcg PO DAILY@0700 [facility] Last Admin: 07/30/16 06:04 Dose: 88 mcg Methylprednisolone Sodium Succinate (Solu-Medrol -) 40 mg IVPB DAILY [facility] Pantoprazole Sodium (Protonix -) 40 mg PO DAILY [facility] Last Admin: 07/30/16 10:05 Dose: 40 mg - Objective Vital Signs: Vital Signs Temperature 98.1 F 07/30/16 18:00 Pulse Rate 92 H 07/30/16 18:00 Respiratory Rate 18 07/30/16 18:00 Blood Pressure 150/84 07/30/16 18:00 O2 Sat by Pulse Oximetry (%) 93 L 07/30/16 11:50 Neck: Yes: Supple Cardiovascular: Yes: Regular Rate and Rhythm, Murmur (2/6 [place]), S1, S2 Respiratory: Yes: Diminished Gastrointestinal: Yes: Normal Bowel Sounds, Soft. No: Tenderness Edema: No Labs: CBC, BMP 07/29/16 11:08 07/30/16 06:30 Problem List - Problems (1) Acute on chronic renal failure Code(s): N17.9 - ACUTE KIDNEY FAILURE, UNSPECIFIED N18.9 - CHRONIC KIDNEY DISEASE, UNSPECIFIED Qualifiers: Acute renal failure type: unspecified Chronic kidney disease stage: unspecified stage Qualified Code(s): N17.9 - Acute kidney failure, unspecified; N18.9 - Chronic kidney disease, unspecified (2) COPD (chronic obstructive pulmonary disease) Code(s): J44.9 - CHRONIC OBSTRUCTIVE PULMONARY DISEASE, UNSPECIFIED Qualifiers : COPD type: unspecified COPD Qualified Code(s): J44.9 - Chronic obstructive pulmonary disease, unspecified (3) Pneumonia Code(s): J18.9 - PNEUMONIA, UNSPECIFIED ORGANISM Qualifiers: Pneumonia type: due to unspecified organism Laterality: right Lung location: lower lobe of lung Qualified Code(s): J18.1 - Lobar pneumonia, unspecified organism (4) Status post fall Code(s): Z91.89 - [facility] PERSONAL RISK FACTORS, NOT ELSEWHERE CLASSIFIED (5) ASHD (arteriosclerotic heart disease) Code(s): I25.10 - ATHSCL HEART DISEASE OF [place] CORONARY ARTERY W/O ANG PCTRS (6) Anemia Code(s): D64.9 - ANEMIA, UNSPECIFIED Qualifiers: Anemia type: due to other cause Other causes of anemia: chronic disease , kidney (7) Aortic stenosis Code(s): I35.0 - NONRHEUMATIC AORTIC (VALVE) STENOSIS Qualifiers: Cardiac valve disease etiology: nonrheumatic Qualified Code(s): I35.0 - Nonrheumatic aortic (valve) stenosis (8) Breast CA Code(s): C50.919 - MALIGNANT NEOPLASM OF UNSP SITE OF UNSPECIFIED FEMALE BREAST (9) CAD (coronary artery disease) Code(s): I25.10 - ATHSCL HEART DISEASE OF [place] CORONARY ARTERY W/O ANG PCTRS Qualifiers: Coronary Disease-Associated Artery/Lesion type: [place] artery [place] vs. transplanted heart: [place] heart Associated angina: without angina Qualified Code(s): I25.10 - Atherosclerotic heart disease of [place] coronary artery without angina pectoris (10) CHF (congestive heart failure) Code(s): I50.9 - HEART FAILURE, UNSPECIFIED Qualifiers: Congestive heart failure type: diastolic Congestive heart failure chronicity: acute on chronic Qualified Code(s): I50.33 - Acute on chronic diastolic (congestive) heart failure (11) Demand ischemia Code(s): I24.8 - OTHER FORMS OF ACUTE ISCHEMIC HEART DISEASE (12) Diastolic dysfunction Code(s): I51.9 - HEART DISEASE, UNSPECIFIED (13) Lung cancer Code(s): C34.90 - MALIGNANT NEOPLASM OF UNSP PART OF UNSP BRONCHUS OR LUNG Qualifiers: Lung location: unspecified part of lung (14) S/P coronary artery stent placement Code(s): Z95.5 - PRESENCE OF CORONARY ANGIOPLASTY IMPLANT AND GRAFT Assessment/Plan 1. RLL Pneumonia with leukocytosis 2. Gait dysfunction, no LOC, near syncope due to postural hypotension 3. CAD s/p PCI/stent, angina pectoris 4. HTN/HCVD 5. Hypercholesterolemia 6. Diastolic left ventricular dysfunction with class 1 NYHA classification LV failure and pulmonary HTN 7. Aortic valve disease - moderate aortic valve stenosis 8. Hypothyroidism 9. History of lung CA post chemotherapy 10. History of breast CA post lumpectomy and chemotherapy 11. Acute on CKD due to sepsis 12. Anemia and history of post-polypectomy bleed 13. COPD with chronic hypoxemic respiratory failure PLAN: 1. Antibiotic course 2. Continue hydration with caution. Lisinopril and diuretics held 3. Continue Carvedilol 12.5 mg bid and ASA 81 mg qd 4. DVT and GI prophylaxis 5. Steroid taper and inhaler Further plans are to follow Michael Steward MD
[2016-07-31] MEDS: ALBUTEROL SO4 2.5/IPRATROPIUM 0.5 INH SOL 3 ML VIAL.NEB. NEB SCH ×5 (00:04→23:34)
[2016-07-31] MEDS: PIPERACILLIN/TAZOB 2.25 GM 50 ML IVPB SCH ×3 (01:27→18:09)
[2016-07-31] MEDS: ACETAMINOPHEN 325 MG TABLET (FP) PO PRN ×2 (04:50→19:19)
[2016-07-31] MEDS ORDERED: PANTOPRAZOLE SODIUM 80 MG in SODIUM CHLORIDE 100 ML IVPB SCH (05:30)
--- NOTE | 2016-07-31 05:46 | HOSP ---
Subjective - Review of Symptoms Events since last encounter: 76 year old female with significant medical hx of aortic stenosis, CAD s/p stent and PCI, HTN, HLD, mitral insufficiency, pulmonary HTN, COPD, small cell carcinoma treated with chemotherapy, lung CA O2 dependent, renal failure, chronic lower back pain, and hypothyroidism who is presenting to the ED via EMS s/p fall. I was called by nurse for patient sudden onset of CP, SOB, tachypnea , tachycardia, one episode of Hematemesis 1/2 cup full, several episodes of melena. patient felt some improvement in her breathing with with oxygen and Briochiodilators. Physical Examination Vital Signs: Vital Signs Temperature 98.1 F Pulse Rate 136 H Respiratory Rate 24 Blood Pressure 130/87 O2 Sat by Pulse Oximetry (%) 98 L on 3 L Constitutional: Yes: Anxious, Cachectic, Moderate Distress Eyes: Yes: WNL, Conjunctiva Clear HENT: Yes: WNL, Atraumatic, Normocephalic Neck: Yes: WNL, Supple, Trachea Midline Cardiovascular: Yes: Regular Rate and Rhythm, Tachycardia, S1, S2 Respiratory: Yes: On Nasal O2, Tachypnea Gastrointestinal: Yes: Normal Bowel Sounds, Soft, Hematemesis, Melena, Tenderness (tenderness epigastric area), Vomiting Labs: CBC, BMP 07/29/16 11:08 07/30/16 06:30 Hospitalist Encounter Assessment: 76 year old female with significant medical hx of aortic stenosis, CAD s/p stent and PCI, HTN, HLD, mitral insufficiency, pulmonary HTN, COPD, small cell carcinoma treated with chemotherapy, lung CA O2 dependent, renal failure, chronic lower back pain, and hypothyroidism who is presenting to the ED via EMS s/p fall. I was called by nurse for patient sudden onset of CP, SOB, tachypnea , tachycardia, one episode of Hematemesis 1/2 cup full, several episodes of melena. patient felt some improvement in her breathing with with oxygen and Briochiodilators. r/o ACS, EKG tachycardic @132bpm, no st changes when compared with previous EKG , peaked T waves no change from perivous EKG, Troponins Pending r/o Upper GI bleed, CBC CMP stool occult pending troponin PT/INR type and screen EKG CXR- NGT placement, r/o aspiration, NG tube Protonix drip GI Consult low thrush hold for transfusion held asa and heparin SOB saturating well on 3 L, r/o aspiration, CXR pending BD Visit type - Emergency Visit Emergency Visit: Yes ED Registration Date: 07/27/16 Care time: The patient presented to the Emergency Department on the above date and was hospitalized for further evaluation of their emergent condition. - New Patient This patient is new to me today: No - Critical Care Critical Care patient: No
[2016-07-31 06:17] LABS: MCH 28.3 pg (25.7-33.7); MCHC 31.1 g/dl (32.0-36.0); MEAN CELL VOLUME 91.1 fl (80-96); MEAN PLT VOLUME 7.1 fl (7.5-11.1); PLATELET COUNT 515 K/MM3 (134-434); WHITE BLOOD COUNT 27.2 K/mm3 (4.0-10.0)
[2016-07-31 06:32] LABS: INR 1.07 (0.82-1.09); PROTHROMBIN TIME (PATIENT) 11.8 SEC (9.98-11.88)
[2016-07-31 06:34] LABS: ALBUMIN 1.9 g/dl (3.4-5.0); BILIRUBIN,TOTAL 0.2 mg/dL (0.2-1.0); CALCIUM 7.9 mg/dL (8.5-10.1); COCKROFT - GAULT 12.597; CREATININE 2.6 mg/dL (0.55-1.02); TOT PROT 5.3 g/dl (6.4-8.2)
[2016-07-31] MEDS: LEVOTHYROXINE NA 88 MCG TABLET (FP) PO SCH (07:01)
[2016-07-31] MEDS: SODIUM CHLORIDE 1,000 ML IV SCH ×2 (08:15→21:54)
--- NOTE | 2016-07-31 08:23 | PN ---
Progress Note, Physician History of Present Illness: pt had an episode of hematemesis and melena this am with drop of hgb to 6 pt had cp at the same time cp has resolved no further vomiting - Current Medication List Current Medications: Active Medications Acetaminophen (Tylenol -) 650 mg PO Q4H PRN PRN Reason: FEVER OR PAIN Last Admin: 07/31/16 04:50 Dose: 650 mg Albuterol/Ipratropium (Duoneb -) 1 amp NEB QIDR [facility] Last Admin: 07/31/16 05:24 Dose: 1 amp Budesonide/Formoterol Fumarate (Symbicort 160/4.5mcg -) 2 puff IH BID [facility] Last Admin: 07/30/16 21:19 Dose: 2 puff Carvedilol (Coreg -) 12.5 mg PO BID [facility] Last Admin: 07/30/16 21:18 Dose: 12.5 mg Cholecalciferol (Vitamin D3 -) 1,000 unit PO DAILY [facility] Last Admin: 07/30/16 10:03 Dose: 1,000 unit Citalopram Hydrobromide (Celexa -) 40 mg PO DAILY [facility] Last Admin: 07/30/16 10:03 Dose: 40 mg Dextrose/Sodium Chloride (D5-1/2ns -) 1,000 mls @ 75 mls/hr IV ASDIR [facility] Last Admin: 07/30/16 15:38 Dose: 75 mls/hr Piperacillin Sod/Tazobactam Sod (Zosyn 2.25gm Ivpb (Pre-Docked)) 50 mls @ 100 mls/hr IVPB Q8H-IV [facility] PRN Reason: Protocol Last Admin: 07/31/16 01:27 Dose: 100 mls/hr Pantoprazole Sodium 80 mg/ (Sodium Chloride) 100 mls @ 10 mls/hr IVPB Q10H [facility] PRN Reason: 8 MG/HR Last Admin: 07/31/16 05:30 Dose: 10 mls/hr Levothyroxine Sodium (Synthroid -) 88 mcg PO DAILY@0700 [facility] Last Admin: 07/31/16 07:01 Dose: Not Given Methylprednisolone Sodium Succinate (Solu-Medrol -) 40 mg IVPB DAILY [facility] - Objective Vital Signs: Vital Signs Temperature 97.7 F 07/31/16 06:00 Pulse Rate 136 H 07/31/16 06:00 Respiratory Rate 24 07/31/16 06:00 Blood Pressure 130/87 07/31/16 06:00 O2 Sat by Pulse Oximetry (%) 94 L 07/30/16 20:41 Cardiovascular: Yes: S1, S2 Respiratory: Yes: Regular, CTA Bilaterally Gastrointestinal: Yes: Normal Bowel Sounds, Soft. No: Tenderness Neurological: Yes: Alert, Oriented Labs: CBC, BMP 07/31/16 05:50 07/31/16 05:50 INR, PTT INR 1.07 (0.82-1.09) 07/31/16 05:50 Problem List - Problems (1) GI bleed Assessment/Plan: transfuse ppi drip gi consult ngt if pt agrees monitor labs icu monitoring Code(s): K92.2 - GASTROINTESTINAL HEMORRHAGE, UNSPECIFIED Qualifiers: GI bleed type/associated pathology: unspecified gastrointestinal hemorrhage type Qualified Code(s): K92.2 - Gastrointestinal hemorrhage, unspecified (2) Anemia Code(s): D64.9 - ANEMIA, UNSPECIFIED Qualifiers: Anemia type: due to other cause Other causes of anemia: chronic disease , kidney (3) Acute on chronic renal failure Assessment/Plan: IVF MONITOR RENAL FUNCTION Laboratory Tests 07/29/16 07/30/16 11:08 06:30 Creatinine 3.1 H 2.8 H Code(s): N17.9 - ACUTE KIDNEY FAILURE, UNSPECIFIED N18.9 - CHRONIC KIDNEY DISEASE, UNSPECIFIED Qualifiers: Acute renal failure type: unspecified Chronic kidney disease stage: unspecified stage Qualified Code(s): N17.9 - Acute kidney failure, unspecified; N18.9 - Chronic kidney disease, unspecified (4) COPD (chronic obstructive pulmonary disease) Assessment/Plan: NEBS STEROIDS IV TAPER PULM Code(s): J44.9 - CHRONIC OBSTRUCTIVE PULMONARY DISEASE, UNSPECIFIED Qualifiers : COPD type: unspecified COPD Qualified Code(s): J44.9 - Chronic obstructive pulmonary disease, unspecified (5) Leukocytosis Code(s): D72.829 - ELEVATED WHITE BLOOD CELL COUNT, UNSPECIFIED Qualifiers: Leukocytosis type: other Qualified Code(s): D72.828 - Other elevated white blood cell count (6) Pneumonia Assessment/Plan: IV ABX CULTURES Microbiology 07/27/16 16:30 Gram Stain - Final Sputum - Expectorated Sputum Culture - Final Pseudomonas Aeruginosa Yeast Like Organism 07/30/16 09:00 Clostridium difficile Antigen (SAE) - Final Stool Clostridium difficile Toxin Assay - Final 07/27/16 10:00 Blood Culture - Preliminary Blood - Peripheral Venous NO GROWTH OBTAINED AFTER 72 HOURS, INCUBATION TO CONTINUE FOR 2 DAYS. 07/27/16 10:00 Blood Culture - Preliminary Blood - Peripheral Venous NO GROWTH OBTAINED AFTER 72 HOURS, INCUBATION TO CONTINUE FOR 2 DAYS. CXR Code(s): J18.9 - PNEUMONIA, UNSPECIFIED ORGANISM Qualifiers: Pneumonia type: due to unspecified organism Laterality: right Lung location: lower lobe of lung Qualified Code(s): J18.1 - Lobar pneumonia, unspecified organism (7) CHF (congestive heart failure) Assessment/Plan: NO EVIDENCE OF FAILURE IVF HOLD LASIX Code(s): I50.9 - HEART FAILURE, UNSPECIFIED Qualifiers: Congestive heart failure type: diastolic Congestive heart failure chronicity: acute on chronic Qualified Code(s): I50.33 - Acute on chronic diastolic (congestive) heart failure (8) Lung cancer Code(s): C34.90 - MALIGNANT NEOPLASM OF UNSP PART OF UNSP BRONCHUS OR LUNG Qualifiers: Lung location: unspecified part of lung
[2016-07-31] MEDS ORDERED: PT OWN MED DRAWER 7, Y5N ONE (09:13)
[2016-07-31] MEDS ORDERED: methylPREDNISolone NA SUCC 40 MG/1 ML VIAL IVPB SCH (10:00)
--- NOTE | 2016-07-31 10:06 | PN ---
Progress Note, Physician History of Present Illness: Renal f/u Pt now in the ICU after an episode of hematemesis Pt receiving her first unit of PRBCs now She denies any abdominal pain at present Azotemia better today Sputum + for Pseudomonas BC negative - Current Medication List Current Medications: Active Medications Acetaminophen (Tylenol -) 650 mg PO Q4H PRN PRN Reason: FEVER OR PAIN Albuterol/Ipratropium (Duoneb -) 1 amp NEB QIDR [facility] Budesonide/Formoterol Fumarate (Symbicort 160/4.5mcg -) 2 puff IH BID [facility] Carvedilol (Coreg -) 12.5 mg PO BID [facility] Cholecalciferol (Vitamin D3 -) 1,000 unit PO DAILY [facility] Citalopram Hydrobromide (Celexa -) 40 mg PO DAILY [facility] Sodium Chloride (Normal Saline -) 1,000 mls @ 75 mls/hr IV Q13H [facility] Last Admin: 07/31/16 08:15 Dose: 75 mls/hr Pantoprazole Sodium 80 mg/ (Sodium Chloride) 100 mls @ 10 mls/hr IVPB Q10H [facility] PRN Reason: 8 MG/HR Piperacillin Sod/Tazobactam Sod (Zosyn 2.25gm Ivpb (Pre-Docked)) 50 mls @ 100 mls/hr IVPB Q8H-IV [facility] PRN Reason: Protocol Levothyroxine Sodium (Synthroid -) 88 mcg PO DAILY@0700 [facility] Methylprednisolone Sodium Succinate (Solu-Medrol -) 40 mg IVPB DAILY [facility] - Objective Vital Signs: Vital Signs Temperature 98.6 F 07/31/16 09:00 Pulse Rate 124 H 07/31/16 09:00 Respiratory Rate 20 07/31/16 09:00 Blood Pressure 116/68 07/31/16 09:00 O2 Sat by Pulse Oximetry (%) 94 L 07/30/16 20:41 Constitutional: Yes: No Distress Cardiovascular: Yes: Murmur, S1, S2 Respiratory: Yes: Other (Rare rhonchus) Labs: CBC, BMP 07/31/16 05:50 07/31/16 05:50 INR, PTT INR 1.07 (0.82-1.09) 07/31/16 05:50 Assessment/Plan Impression 1. Acute on CKD improving 2. PNA with sepsis 3. S/P hyperkalemia 4. CAD with cardiac stents 5. HTN 6. Hyperlipidemia 7. Hypothyroidism 8. H/O Breast 9. Lung Ca 10. Acute worsening og the anemia with UGIB Plan - PRBCs and hold IVF during the administration of blood products - Monitor Hgb - PPI - GI evaluation - Rpt labs in am - IVF as ordered - Abx as per ID Dr Walker
[2016-07-31] MEDS: CHOLECALCIFEROL (VITAMIN D3) 1,000 UNIT TABLET (FP) PO SCH (10:49)
[2016-07-31] MEDS: CARVEDILOL 12.5 MG TABLET (FP) PO SCH ×2 (10:49→21:55)
[2016-07-31] MEDS: CITALOPRAM HYDROBROMIDE 20 MG TABLET (FP) PO SCH (10:50)
[2016-07-31] MEDS: methylPREDNISolone NA SUCC 40 MG/1 ML VIAL IVPB SCH (10:50)
[2016-07-31] MEDS: BUDESONIDE/FORMETEROL FUMARATE 160/4.5 mcg INHALER IH SCH ×2 (11:20→22:00)
--- NOTE | 2016-07-31 11:47 | PN ---
Progress Note, Physician History of Present Illness: Transferred to ICU after episode of hematemesis/ melena Awake, alert No complaints at present No c/o abdominal pain No c/o chest pain/ dyspnea/ cough Afebrile WBC increased 27K - Current Medication List Current Medications: Active Medications Acetaminophen (Tylenol -) 650 mg PO Q4H PRN PRN Reason: FEVER OR PAIN Albuterol/Ipratropium (Duoneb -) 1 amp NEB QIDR [facility] Last Admin: 07/31/16 11:36 Dose: 1 amp Budesonide/Formoterol Fumarate (Symbicort 160/4.5mcg -) 2 puff IH BID [facility] Carvedilol (Coreg -) 12.5 mg PO BID [facility] Last Admin: 07/31/16 10:49 Dose: 12.5 mg Cholecalciferol (Vitamin D3 -) 1,000 unit PO DAILY [facility] Last Admin: 07/31/16 10:49 Dose: 1,000 unit Citalopram Hydrobromide (Celexa -) 40 mg PO DAILY [facility] Last Admin: 07/31/16 10:50 Dose: 40 mg Sodium Chloride (Normal Saline -) 1,000 mls @ 75 mls/hr IV Q13H [facility] Last Admin: 07/31/16 08:15 Dose: 75 mls/hr Pantoprazole Sodium 80 mg/ (Sodium Chloride) 100 mls @ 10 mls/hr IVPB Q10H [facility] PRN Reason: 8 MG/HR Piperacillin Sod/Tazobactam Sod (Zosyn 2.25gm Ivpb (Pre-Docked)) 50 mls @ 100 mls/hr IVPB Q8H-IV [facility] PRN Reason: Protocol Last Admin: 07/31/16 10:49 Dose: 100 mls/hr Levothyroxine Sodium (Synthroid -) 88 mcg PO DAILY@0700 [facility] Methylprednisolone Sodium Succinate (Solu-Medrol -) 40 mg IVPB DAILY [facility] Last Admin: 07/31/16 10:50 Dose: 40 mg - Objective Vital Signs: Vital Signs Temperature 97.8 F 07/31/16 10:00 Pulse Rate 118 H 07/31/16 10:35 Respiratory Rate 20 07/31/16 10:00 Blood Pressure 127/68 07/31/16 10:00 O2 Sat by Pulse Oximetry (%) 99 07/31/16 10:35 Constitutional: Yes: No Distress Eyes: Yes: Conjunctiva Clear Cardiovascular: Yes: Regular Rate and Rhythm, S1, S2 Respiratory: Yes: CTA Bilaterally Gastrointestinal: Yes: Normal Bowel Sounds, Soft. No: Tenderness Edema: No Labs: CBC, BMP 07/31/16 05:50 07/31/16 05:50 INR, PTT INR 1.07 (0.82-1.09) 07/31/16 05:50 Assessment/Plan RLL pneumonia + sputum c/s Pseudomonas Exacerbation COPD GI bleed Small cell ca lung Renal failure Leukocytosis Continue zosyn GI evaluation
[2016-07-31 12:21] LABS: PLATELET ESTIMATE INCREASED (NORMAL)
[2016-07-31] MEDS ORDERED: PHENYLEPHRINE HCL 10 MG/1 ML SINGLE DOSE VIAL ONE (14:02)
[2016-07-31] MEDS ORDERED: PROPOFOL 20 ML ONE (14:02)
--- NOTE | 2016-07-31 14:35 | CONSULT ---
Consult Consult Specialty:: PULM / CCM Referred by:: Dr. Isaiah Thompson Reason for Consultation:: UGIB - History of Present Illness Chief Complaint: Hematemesis/Melena History of Present Illness: Mrs. Jansen is a 76 y/o woman w/ a PMHx/o CAD, HTN, HL, p-HTN, COPD, small cell cancer, CKD and hypothyroid who presents to the ED on 07/26 s/p fall. The pt was admitted to the floor for PNA & worsening renal failure. Of note, the pt was recently discharged from here (a few weeks ago) for hyperkalemia. On the floor, the pt was convalescing on abx & steroids when she suddenly presented w/ hematemesis (~1/2 cup FRB) & several episodes of melena. Hgb dropped from the 9' s --> 6's & so the pt was admitted to the ICU for GIB. - History Source History Provided By: Family Member, Medical Record Limitations to Obtaining History: Clinical Condition - Past Medical History Cardio/Vascular: Yes: Aortic Stenosis, CAD (with coronary stenting), HTN, Hyperlipdemia, Mitral Insufficiency, Pulmonary Hypertension Pulmonary: Yes: Cancer (Chemothrerapy for small cell carcinoma- Dr Simpson), COPD Gastrointestinal: Yes: Diverticulosis, Other (Breast lumpectomy) Renal/: Yes: Renal Failure, Renal Inusuff Psych: Yes: Anxiety Musculoskeletal: Yes: Chronic low back pain, Osteoarthritis Endocrine: Yes: Hypothyroidism, Osteopenia - Past Surgical History Past Surgical History: Yes: Laminectomy (cervical ', lumbar '), Stent, Tonsillectomy, Tubal Ligation - Alcohol/Substance Use Hx Alcohol Use: No Date of Last Use: 02/27/81 - Smoking History Smoking history: Former smoker Have you smoked in the past 12 months: No Aproximately how many cigarettes per day: 0 If you are a former smoker, when did you quit?: 2004 - Social History Usual Living Arrangement: With Spouse ADL: Independent 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 History of Recent Travel: No Home Medications - Allergies Allergies/Adverse Reactions: Allergies Allergy/AdvReac Type Severity Reaction Status Date / Time No Known Allergies Allergy Verified 07/26/16 17:51 - Home Medications Home Medications: Ambulatory Orders Citalopram Hydrobromide [Citalopram HBr] 40 mg PO DAILY 11/12/15 Cholecalciferol (Vitamin D3) [Vitamin D -] 1,000 unit PO DAILY 01/07/16 Levothyroxine [Synthroid -] 0.5 tab PO DAILY@0700 03/07/16 Aspirin Coated [Ecotrin -] 81 mg PO DAILY tablet.ec 04/01/16 Carvedilol [Coreg -] 25 mg PO BID #60 tablet 07/12/16 Budesonide/Formeterol Fumarate [SYMBICORT 160/4.5mcg -] 1 inh PO BID 07/26/16 Furosemide [Lasix] 40 mg PO DAILY 07/26/16 Prednisone 20 mg PO DAILY 07/26/16 Family Disease History - Family Disease History Family History: Unremarkable Family Disease History: CA: Father (diffuse unknown primary), Sister ( of lung cancer), Other: Mother ( after hip fracture) Review of Systems - Review of Systems Constitutional: reports: No Symptoms Eyes: reports: No Symptoms HENT: reports: No Symptoms Neck: reports: No Symptoms Cardiovascular: reports: No Symptoms Respiratory: reports: SOB Gastrointestinal: reports: Abdominal Pain, Melena, Vomiting, Vomiting Blood Genitourinary: reports: No Symptoms Breasts: reports: No Symptoms Reported Musculoskeletal: reports: No Symptoms Integumentary: reports: No Symptoms Neurological: reports: No Symptoms Endocrine: reports: No Symptoms Hematology/Lymphatic: reports: No Symptoms Psychiatric: reports: No Symptoms Pain Intensity: 0 Physical Exam Vital Signs: Vital Signs Temperature 97.8 F 07/31/16 10:00 Pulse Rate 117 H 07/31/16 12:00 Respiratory Rate 20 07/31/16 13:15 Blood Pressure 140/78 07/31/16 12:00 O2 Sat by Pulse Oximetry (%) 99 07/31/16 13:15 Constitutional: Yes: Calm, Cachectic, Pallor Eyes: Yes: WNL, Conjunctiva Clear, EOM Intact HENT: Yes: WNL, Atraumatic, Normocephalic Neck: Yes: WNL, Supple, Trachea Midline Cardiovascular: Yes: WNL, Regular Rate and Rhythm Respiratory: Yes: WNL, Regular, CTA Bilaterally Gastrointestinal: Yes: WNL, Normal Bowel Sounds, Soft ...Rectal Exam: Yes: Deferred Renal/: Yes: WNL Breast(s): Yes: WNL Musculoskeletal: Yes: WNL Extremities: Yes: WNL Edema: No Peripheral Pulses WNL: Yes Neurological: Yes: WNL, Alert, Oriented ...Motor Strength: WNL Psychiatric: Yes: WNL, Alert, Oriented Labs: CBC, BMP 07/31/16 05:50 07/31/16 05:50 Microbiology 07/27/16 10:00 Blood - Peripheral Venous Blood Culture - Preliminary NO GROWTH OBTAINED AFTER 96 HOURS, INCUBATION TO CONTINUE FOR 1 DAYS. 07/27/16 10:00 Blood - Peripheral Venous Blood Culture - Preliminary NO GROWTH OBTAINED AFTER 96 HOURS, INCUBATION TO CONTINUE FOR 1 DAYS. 07/27/16 16:30 Sputum - Expectorated Gram Stain - Final 07/27/16 16:30 Sputum - Expectorated Sputum Culture - Final Pseudomonas Aeruginosa Yeast Like Organism 07/30/16 09:00 Stool Clostridium difficile Antigen (SAE) - Final 07/30/16 09:00 Stool Clostridium difficile Toxin Assay - Final 07/27/16 18:15 Urine For Antigen Detection Legionella Antigen - Final 07/27/16 18:15 Urine For Antigen Detection Streptococcus pneumoniae Antigen (M - Final 07/26/16 20:18 Urine - Urine - Catheterized Urine Culture - Final NO GROWTH OBTAINED Imaging - Results X-ray: Image Reviewed (07/31: L ACW medi-port in good position, RLL PNA, (My Read) .) EKG: Image Reviewed (07/27: RSR @ 100 w/o ectopy, LVH, ST elevations in V2, V3, & V4, QTc = 413ms, (-) change from EKGs on record from earlier in June, no acut processes (My Read).) Problem List - Problems (1) GI bleed Code(s): K92.2 - GASTROINTESTINAL HEMORRHAGE, UNSPECIFIED Qualifiers: GI bleed type/associated pathology: unspecified gastrointestinal hemorrhage type Qualified Code(s): K92.2 - Gastrointestinal hemorrhage, unspecified (2) COPD (chronic obstructive pulmonary disease) Code(s): J44.9 - CHRONIC OBSTRUCTIVE PULMONARY DISEASE, UNSPECIFIED Qualifiers : COPD type: unspecified COPD Qualified Code(s): J44.9 - Chronic obstructive pulmonary disease, unspecified (3) Pneumonia Code(s): J18.9 - PNEUMONIA, UNSPECIFIED ORGANISM Qualifiers: Pneumonia type: due to unspecified organism Laterality: right Lung location: lower lobe of lung Qualified Code(s): J18.1 - Lobar pneumonia, unspecified organism (4) Acute on chronic renal failure Code(s): N17.9 - ACUTE KIDNEY FAILURE, UNSPECIFIED N18.9 - CHRONIC KIDNEY DISEASE, UNSPECIFIED Qualifiers: Acute renal failure type: unspecified Chronic kidney disease stage: unspecified stage Qualified Code(s): N17.9 - Acute kidney failure, unspecified; N18.9 - Chronic kidney disease, unspecified Assessment/Plan ASSSESS: -GIB (m/l duodenal oozing +/- esophageal lashawn) -PSA PNA -COPD -Small cell lung CA -Renal fail -Hypothyroid PLAN: -NPO (GIB) -HOB > 30 -Supp FiO2 for an SpO2 > 92% (COPD) -Nebs (COPD) -Cont Symbicort (COPD) -Wean steroids (COPD) -Cont Zo (PSA PNA) -Fire up fluc for esophageal lashawn -D/c all anti-HTN meds (GIB) -Active T &S (GIB) -Large bore IV access X 2 (GIB) -Transfuse PRBCs X 2U (GIB) -Serial CBCs -Gentle IVFs -F/u w/ Dr. Nick Meier RE EGD for today -PPI gtt -Hold off on any AC while pt is GIB -Cont Synthroid -Cant cont MVI -S/p EGD w/ intervention, if Hgb stable, pt can return to the floor DISPO: Full Code Thank you for this interesting consult Naseem Chun, ACNP-BC [id number] [facility] ICU PULM / CCM
--- NOTE | 2016-07-31 15:14 | PN ---
Progress Note (short form) - Note Progress Note: GI CONSULTATION: PLEASE SEE FULL DICTATED CONSULTATION PLEASE SEE COMPLETE TYPED ENDOSCOPY REPORT IN THE CHART THANK YOU, MD CASE
[2016-07-31] MEDS: PANTOPRAZOLE SODIUM 80 MG in SODIUM CHLORIDE 100 ML IVPB SCH (16:20)
--- NOTE | 2016-07-31 16:25 | EKG ---
Test Reason : Blood Pressure : / mmHG Vent. Rate : 131 BPM Atrial Rate : 131 BPM P-R Int : 126 ms QRS Dur : 088 ms QT Int : 296 ms P-R-T Axes : 086 062 061 degrees QTc Int : 437 ms POOR DATA QUALITY, INTERPRETATION MAY BE ADVERSELY AFFECTED SINUS TACHYCARDIA MODERATE VOLTAGE CRITERIA FOR LVH, MAY BE NORMAL VARIANT NONSPECIFIC ST ABNORMALITY ABNORMAL ECG WHEN COMPARED WITH ECG OF 27-JUL-2016 04:22, PREMATURE ATRIAL COMPLEXES ARE NO LONGER PRESENT ST NOW DEPRESSED IN INFERIOR LEADS Confirmed by BETH VOGEL MD ([id number]) on 07/31/2016 4:25:40 PM Referred By: Confirmed By:BETH VOGEL MD
--- NOTE | 2016-07-31 17:27 | PN ---
Progress Note, Physician Chief Complaint: Events noted Transferred to ICU after GI bleed Transfusion in the morning Generalized weakness History of Present Illness: Patient was seen and examined. Awake and alert. Chart was reviewed Transfusion PRBC. GI consultation to follow No chest pain or SOB - Current Medication List Current Medications: Active Medications Acetaminophen (Tylenol -) 650 mg PO Q4H PRN PRN Reason: FEVER OR PAIN Albuterol/Ipratropium (Duoneb -) 1 amp NEB QIDR [facility] Last Admin: 07/31/16 11:36 Dose: 1 amp Budesonide/Formoterol Fumarate (Symbicort 160/4.5mcg -) 2 puff IH BID [facility] Carvedilol (Coreg -) 12.5 mg PO BID [facility] Last Admin: 07/31/16 10:49 Dose: 12.5 mg Cholecalciferol (Vitamin D3 -) 1,000 unit PO DAILY [facility] Last Admin: 07/31/16 10:49 Dose: 1,000 unit Citalopram Hydrobromide (Celexa -) 40 mg PO DAILY [facility] Last Admin: 07/31/16 10:50 Dose: 40 mg Sodium Chloride (Normal Saline -) 1,000 mls @ 75 mls/hr IV Q13H [facility] Last Admin: 07/31/16 08:15 Dose: 75 mls/hr Pantoprazole Sodium 80 mg/ (Sodium Chloride) 100 mls @ 10 mls/hr IVPB Q10H [facility] PRN Reason: 8 MG/HR Piperacillin Sod/Tazobactam Sod (Zosyn 2.25gm Ivpb (Pre-Docked)) 50 mls @ 100 mls/hr IVPB Q8H-IV NURIS PRN Reason: Protocol Last Admin: 07/31/16 10:49 Dose: 100 mls/hr Levothyroxine Sodium (Synthroid -) 88 mcg PO DAILY@0700 [facility] Methylprednisolone Sodium Succinate (Solu-Medrol -) 40 mg IVPB DAILY [facility] Last Admin: 07/31/16 10:50 Dose: 40 mg - Objective Vital Signs: Vital Signs Temperature 98 F 07/31/16 15:39 Pulse Rate 99 H 07/31/16 15:39 Respiratory Rate 20 07/31/16 15:39 Blood Pressure 159/79 07/31/16 15:39 O2 Sat by Pulse Oximetry (%) 99 07/31/16 13:15 Neck: Yes: Supple Cardiovascular: Yes: Regular Rate and Rhythm, Murmur (2/6 [place]), S1, S2 Respiratory: Yes: Diminished Gastrointestinal: Yes: Soft. No: Tenderness Edema: No Labs: CBC, BMP 07/31/16 05:50 07/31/16 05:50 INR, PTT INR 1.07 (0.82-1.09) 07/31/16 05:50 Problem List - Problems (1) Acute on chronic renal failure Code(s): N17.9 - ACUTE KIDNEY FAILURE, UNSPECIFIED N18.9 - CHRONIC KIDNEY DISEASE, UNSPECIFIED Qualifiers: Acute renal failure type: unspecified Chronic kidney disease stage: unspecified stage Qualified Code(s): N17.9 - Acute kidney failure, unspecified; N18.9 - Chronic kidney disease, unspecified (2) COPD (chronic obstructive pulmonary disease) Code(s): J44.9 - CHRONIC OBSTRUCTIVE PULMONARY DISEASE, UNSPECIFIED Qualifiers : COPD type: unspecified COPD Qualified Code(s): J44.9 - Chronic obstructive pulmonary disease, unspecified (3) Pneumonia Code(s): J18.9 - PNEUMONIA, UNSPECIFIED ORGANISM Qualifiers: Pneumonia type: due to unspecified organism Laterality: right Lung location: lower lobe of lung Qualified Code(s): J18.1 - Lobar pneumonia, unspecified organism (4) Status post fall Code(s): Z91.89 - [facility] PERSONAL RISK FACTORS, NOT ELSEWHERE CLASSIFIED (5) ASHD (arteriosclerotic heart disease) Code(s): I25.10 - ATHSCL HEART DISEASE OF [place] CORONARY ARTERY W/O [facility] PCTRS (6) Anemia Code(s): D64.9 - ANEMIA, UNSPECIFIED Qualifiers: Anemia type: due to other cause Other causes of anemia: chronic disease , kidney (7) Aortic stenosis Code(s): I35.0 - NONRHEUMATIC AORTIC (VALVE) STENOSIS Qualifiers: Cardiac valve disease etiology: nonrheumatic Qualified Code(s): I35.0 - Nonrheumatic aortic (valve) stenosis (8) Breast CA Code(s): C50.919 - MALIGNANT NEOPLASM OF UNSP SITE OF UNSPECIFIED FEMALE BREAST (9) CAD (coronary artery disease) Code(s): I25.10 - ATHSCL HEART DISEASE OF [place] CORONARY ARTERY W/O ANG PCTRS Qualifiers: Coronary Disease-Associated Artery/Lesion type: [place] artery [place] vs. transplanted heart: [place] heart Associated angina: without angina Qualified Code(s): I25.10 - Atherosclerotic heart disease of [place] coronary artery without angina pectoris (10) CHF (congestive heart failure) Code(s): I50.9 - HEART FAILURE, UNSPECIFIED Qualifiers: Congestive heart failure type: diastolic Congestive heart failure chronicity: acute on chronic Qualified Code(s): I50.33 - Acute on chronic diastolic (congestive) heart failure (11) Demand ischemia Code(s): I24.8 - OTHER FORMS OF ACUTE ISCHEMIC HEART DISEASE (12) Diastolic dysfunction Code(s): I51.9 - HEART DISEASE, UNSPECIFIED (13) Lung cancer Code(s): C34.90 - MALIGNANT NEOPLASM OF UNSP PART OF UNSP BRONCHUS OR LUNG Qualifiers: Lung location: unspecified part of lung (14) S/P coronary artery stent placement Code(s): Z95.5 - PRESENCE OF CORONARY ANGIOPLASTY IMPLANT AND GRAFT Assessment/Plan 1. GI bleed 2. RLL Pneumonia with leukocytosis 3. Gait dysfunction, no LOC, near syncope due to postural hypotension 5. CAD s/p PCI/stent, angina pectoris 5. HTN/HCVD 6. Hypercholesterolemia 7. Diastolic left ventricular dysfunction with class 1 NYHA classification LV failure and pulmonary HTN 8. Aortic valve disease - moderate aortic valve stenosis 9. Hypothyroidism 10. History of lung CA post chemotherapy 11. History of breast CA post lumpectomy and chemotherapy 12. Acute on CKD due to sepsis 13. Anemia and history of post-polypectomy bleed 14. COPD with chronic hypoxemic respiratory failure PLAN: 1. ICU management and GI input to follow 2. Transfuse PRBC and follow CBC 3. Continue antibiotic course 4. Continue hydration with caution. Lisinopril and diuretics held 5. Continue Carvedilol 12.5 mg bid and ASA 81 mg qd 6. GI prophylaxis 7. Steroid taper and inhaler Further plans are to follow/ guarded Michael Steward MD
--- NOTE | 2016-07-31 17:55 | CONS ---
DATE OF CONSULTATION: 07/31/2016 I was asked by Dr. Thomposn to evaluate this patient for acute GI bleeding. The patient is a 76-year-old female who is a little weak at the present time and unable to elicit all of her history. The majority of the history comes from the patient's chart and her at the bedside. She has a past medical history of atherosclerotic coronary artery disease, hypertension, hyperlipidemia, pulmonary hypertension, COPD. She has a history of breast cancer and small-cell cancer of the lung. She has chronic kidney disease and hypothyroidism. Apparently she came to the emergency room at [facility] on July 28 after a fall. She had worsening renal failure, and she was admitted. She was short of breath. She was not eating. She had been discharged from this hospital a few weeks ago after an episode of hyperkalemia. The patient also had sepsis due to pneumonia and was treated for that as well. The patient, according to the , has had numerous hospitalizations within the past year and a half at [facility]. She has had multiple medical problems. She has aortic stenosis, heart disease with coronary stenting, hyperlipidemia, mitral insufficiency, and pulmonary hypertension. Her oncologist is Dr. Simpson. She has had chemotherapy for small-cell carcinoma. She has known lumpectomy for breast cancer, and she also has osteoarthritis and chronic low back pain. She is status post a cervical and lumbar laminectomy in the , and she has had tonsillectomy and tubal ligation. She is an ex-smoker. She is . She currently does not smoke or drink. She has no known drug allergies. Her medications at home include citalopram, vitamin D, Synthroid, Ecotrin, Coreg, Symbicort, Lasix, and prednisone. FAMILY HISTORY: Her father had metastatic cancer of unclear primary, and a sister of lung cancer. Her mother after a hip fracture. When the patient was admitted, her vital signs were completely stable, and she was thought to have had COPD as well as a right lower lobe pneumonia and was treated for such. The patient was doing well and was nearing discharge; however, last evening she vomited and had hematemesis. She had another episode this morning; however, she did not have any chest pain, shortness of breath, dizziness, or diaphoresis. She was not passing any walter blood per rectum. She had not been having any abdominal complaints. She has not been gaining weight. Her appetite has been poor. She has not had significant dysphagia or early satiety. GI-burnette, she sees Dr. Reyes and saw him approximately 6 months ago for colonoscopy. She was noted to have diverticulosis of the left colon, hemorrhoids, and had 7 polyps removed, all of which were either hyperplastic or tubular adenomas, and a 1-year followup was advised. It does not appear that she has had an upper endoscopy recently or possibly ever, according to the patient. At the present time, she is not in any pain, she is getting transfused packed red blood cells, she is on a proton pump inhibitor drip, and she is in the intensive care unit. Her current medications are Tylenol, Zosyn, Celexa, DuoNeb, Coreg, IV fluid, Protonix, Synthroid, and vitamin D3. On physical exam, she is weak, pale in appearance, cachectic in appearance, but in no acute distress. She is breathing comfortably. She is wearing oxygen nasal cannula. Her sternum is thin, wasted, and she has a chemotherapy port in the right upper sternal region. Her abdomen is not distended. It is flat. Bowel sounds are heard. There is no significant scarring. There are no masses, rebound, or guarding. There is no tenderness to deep palpation. Rectal exam revealed stool that is black, tarry, and consistent with melena. Her laboratory data is notable in that her BUN has gone up to 108, creatinine 2.6, otherwise her SMA-7 is normal. Her glucose is 151 with a calcium of 7.9. Her liver enzymes are normal. Her albumin is 1.9. Her coagulation studies today are normal with an INR of 1, and her hemoglobin and hematocrit had dropped, from hemoglobin 9.5 down to hemoglobin 6.2. This happened over approximately 3 days, and her platelets are 515,000, her white count is 27,000, but it had been as high as 40,000 due to her underlying malignancy. The patient has had no GI radiographic imaging of recent. It is my impression that the patient is a 76-year-old white female with numerous medical problems, as mentioned, who has had significant oncologic disease, had been on prednisone and aspirin, came in to the hospital 3 days ago after a fall, had hematemesis and is clearly having an episode of acute upper GI bleeding. She has been on a PPI IV, she has been n.p.o. and getting blood. I have recommended we do an upper endoscopy for possible therapeutic implications. If we see a bleeding ulcer, we will try to either cauterize it or place clipping to stop the bleeding, and based on that, further recommendations will follow. I have discussed the procedure in detail with the patient and , and have explained that we will give anesthesia to keep her comfortable, and she is granted an informed consent. As noted, based on the endoscopic findings, further recommendations will follow. ELSI WILLOUGHBY M.D. [id number]
[2016-08-01 01:08] LABS: MCH 28.5 pg (25.7-33.7); MCHC 32.3 g/dl (32.0-36.0); MEAN CELL VOLUME 88.3 fl (80-96); MEAN PLT VOLUME 6.9 fl (7.5-11.1); PLATELET COUNT 265 K/MM3 (134-434); RDW 16.4 % (11.6-15.6); WHITE BLOOD COUNT 17.6 K/mm3 (4.0-10.0)
[2016-08-01] MEDS: PIPERACILLIN/TAZOB 2.25 GM 50 ML IVPB SCH ×3 (02:00→17:41)
[2016-08-01] MEDS: PANTOPRAZOLE SODIUM 80 MG in SODIUM CHLORIDE 100 ML IVPB SCH ×3 (03:00→21:39)
[2016-08-01] MEDS ORDERED: PT OWN MED DRAWER 7, Y5N ONE ×3 (03:23→13:53)
[2016-08-01 06:16] LABS: BASOPHIL 0.2 % (0-2.0); MCH 28.7 pg (25.7-33.7); MCHC 32.9 g/dl (32.0-36.0); MEAN PLT VOLUME 6.9 fl (7.5-11.1); NEUTROPHILS 92.6 % (42.8-82.8); PLATELET COUNT 292 K/MM3 (134-434); WHITE BLOOD COUNT 16.8 K/mm3 (4.0-10.0)
[2016-08-01] MEDS: ALBUTEROL SO4 2.5/IPRATROPIUM 0.5 INH SOL 3 ML VIAL.NEB. NEB SCH ×3 (06:36→17:22)
[2016-08-01 06:39] LABS: CALCIUM 8.5 mg/dL (8.5-10.1); COCKROFT - GAULT 14.2375; CREATININE 2.3 mg/dL (0.55-1.02)
[2016-08-01] MEDS: LEVOTHYROXINE NA 88 MCG TABLET (FP) PO SCH (07:28)
[2016-08-01] MEDS: CARVEDILOL 12.5 MG TABLET (FP) PO SCH ×2 (09:06→21:39)
[2016-08-01] MEDS: CITALOPRAM HYDROBROMIDE 20 MG TABLET (FP) PO SCH (09:07)
[2016-08-01] MEDS: ACETAMINOPHEN 325 MG TABLET (FP) PO PRN ×2 (09:07→20:18)
[2016-08-01] MEDS: CHOLECALCIFEROL (VITAMIN D3) 1,000 UNIT TABLET (FP) PO SCH (09:08)
[2016-08-01] MEDS: methylPREDNISolone NA SUCC 40 MG/1 ML VIAL IVPB SCH (09:09)
--- NOTE | 2016-08-01 09:36 | PN ---
Progress Note, Physician History of Present Illness: pt had an episode of hematemesis and melena with drop of hgb to 6 ---had egd with avm bleeding pt had cp at the same time cp has resolved no further vomiting - Current Medication List Current Medications: Active Medications Acetaminophen (Tylenol -) 650 mg PO Q4H PRN PRN Reason: FEVER OR PAIN Last Admin: 08/01/16 09:07 Dose: 650 mg Albuterol/Ipratropium (Duoneb -) 1 amp NEB QIDR [facility] Last Admin: 08/01/16 06:36 Dose: 1 amp Budesonide/Formoterol Fumarate (Symbicort 160/4.5mcg -) 2 puff IH BID [facility] Carvedilol (Coreg -) 12.5 mg PO BID [facility] Last Admin: 08/01/16 09:06 Dose: 12.5 mg Cholecalciferol (Vitamin D3 -) 1,000 unit PO DAILY [facility] Last Admin: 08/01/16 09:08 Dose: 1,000 unit Citalopram Hydrobromide (Celexa -) 40 mg PO DAILY [facility] Last Admin: 08/01/16 09:07 Dose: 40 mg Sodium Chloride (Normal Saline -) 1,000 mls @ 75 mls/hr IV Q13H [facility] Last Admin: 07/31/16 21:54 Dose: Not Given Pantoprazole Sodium 80 mg/ (Sodium Chloride) 100 mls @ 10 mls/hr IVPB Q10H NURIS PRN Reason: 8 MG/HR Last Admin: 08/01/16 03:00 Dose: 10 mls/hr Piperacillin Sod/Tazobactam Sod (Zosyn 2.25gm Ivpb (Pre-Docked)) 50 mls @ 100 mls/hr IVPB Q8H-IV NURIS PRN Reason: Protocol Last Admin: 08/01/16 09:06 Dose: 100 mls/hr Levothyroxine Sodium (Synthroid -) 88 mcg PO DAILY@0700 [facility] Last Admin: 08/01/16 07:28 Dose: Not Given Methylprednisolone Sodium Succinate (Solu-Medrol -) 40 mg IVPB DAILY [facility] Last Admin: 08/01/16 09:09 Dose: 40 mg - Objective Vital Signs: Vital Signs Temperature 97.2 F L 08/01/16 02:00 Pulse Rate 100 H 08/01/16 08:00 Respiratory Rate 18 08/01/16 08:00 Blood Pressure 166/83 08/01/16 08:00 O2 Sat by Pulse Oximetry (%) 98 07/31/16 20:47 Cardiovascular: Yes: Regular Rate and Rhythm Respiratory: Yes: Regular, CTA Bilaterally Gastrointestinal: Yes: Normal Bowel Sounds, Soft Labs: CBC, BMP 08/01/16 05:20 08/01/16 05:20 INR, PTT INR 1.07 (0.82-1.09) 07/31/16 05:50 Problem List - Problems (1) GI bleed Assessment/Plan: ts/p ransfusion prbc ppi drip gi consult noted egd =done clear liquids monitor labs icu monitoring Code(s): K92.2 - GASTROINTESTINAL HEMORRHAGE, UNSPECIFIED Qualifiers: GI bleed type/associated pathology: unspecified gastrointestinal hemorrhage type Qualified Code(s): K92.2 - Gastrointestinal hemorrhage, unspecified (2) Anemia Assessment/Plan: hgb--9 Code(s): D64.9 - ANEMIA, UNSPECIFIED Qualifiers: Anemia type: due to other cause Other causes of anemia: chronic disease , kidney (3) Acute on chronic renal failure Assessment/Plan: IVF MONITOR RENAL FUNCTION Laboratory Tests 07/29/16 07/30/16 11:08 06:30 Creatinine 3.1 H 2.8 H Code(s): N17.9 - ACUTE KIDNEY FAILURE, UNSPECIFIED N18.9 - CHRONIC KIDNEY DISEASE, UNSPECIFIED Qualifiers: Acute renal failure type: unspecified Chronic kidney disease stage: unspecified stage Qualified Code(s): N17.9 - Acute kidney failure, unspecified; N18.9 - Chronic kidney disease, unspecified (4) COPD (chronic obstructive pulmonary disease) Code(s): J44.9 - CHRONIC OBSTRUCTIVE PULMONARY DISEASE, UNSPECIFIED Qualifiers : COPD type: unspecified COPD Qualified Code(s): J44.9 - Chronic obstructive pulmonary disease, unspecified (5) Leukocytosis Code(s): D72.829 - ELEVATED WHITE BLOOD CELL COUNT, UNSPECIFIED Qualifiers: Leukocytosis type: other Qualified Code(s): D72.828 - Other elevated white blood cell count (6) Pneumonia Code(s): J18.9 - PNEUMONIA, UNSPECIFIED ORGANISM Qualifiers: Pneumonia type: due to unspecified organism Laterality: right Lung location: lower lobe of lung Qualified Code(s): J18.1 - Lobar pneumonia, unspecified organism (7) CHF (congestive heart failure) Code(s): I50.9 - HEART FAILURE, UNSPECIFIED Qualifiers: Congestive heart failure type: diastolic Congestive heart failure chronicity: acute on chronic Qualified Code(s): I50.33 - Acute on chronic diastolic (congestive) heart failure (8) Lung cancer Code(s): C34.90 - MALIGNANT NEOPLASM OF UNSP PART OF UNSP BRONCHUS OR LUNG Qualifiers: Lung location: unspecified part of lung
--- NOTE | 2016-08-01 11:03 | PN ---
Progress Note, Physician History of Present Illness: Transferred to ICU for hematemesis, melena Hgb 9->6->9 post trnasfusion, EGD shows duodenal AVMs post cautery. - Current Medication List Current Medications: Active Medications Acetaminophen (Tylenol -) 650 mg PO Q4H PRN PRN Reason: FEVER OR PAIN Last Admin: 08/01/16 09:07 Dose: 650 mg Albuterol/Ipratropium (Duoneb -) 1 amp NEB QIDR [facility] Last Admin: 08/01/16 06:36 Dose: 1 amp Budesonide/Formoterol Fumarate (Symbicort 160/4.5mcg -) 2 puff IH BID [facility] Carvedilol (Coreg -) 12.5 mg PO BID [facility] Last Admin: 08/01/16 09:06 Dose: 12.5 mg Cholecalciferol (Vitamin D3 -) 1,000 unit PO DAILY [facility] Last Admin: 08/01/16 09:08 Dose: 1,000 unit Citalopram Hydrobromide (Celexa -) 40 mg PO DAILY [facility] Last Admin: 08/01/16 09:07 Dose: 40 mg Sodium Chloride (Normal Saline -) 1,000 mls @ 75 mls/hr IV Q13H [facility] Last Admin: 07/31/16 21:54 Dose: Not Given Pantoprazole Sodium 80 mg/ (Sodium Chloride) 100 mls @ 10 mls/hr IVPB Q10H [facility] PRN Reason: 8 MG/HR Last Admin: 08/01/16 03:00 Dose: 10 mls/hr Piperacillin Sod/Tazobactam Sod (Zosyn 2.25gm Ivpb (Pre-Docked)) 50 mls @ 100 mls/hr IVPB Q8H-IV NURIS PRN Reason: Protocol Last Admin: 08/01/16 09:06 Dose: 100 mls/hr Levothyroxine Sodium (Synthroid -) 88 mcg PO DAILY@0700 [facility] Last Admin: 08/01/16 07:28 Dose: Not Given Methylprednisolone Sodium Succinate (Solu-Medrol -) 40 mg IVPB DAILY [facility] Last Admin: 08/01/16 09:09 Dose: 40 mg - Objective Vital Signs: Vital Signs Temperature 97.2 F L 08/01/16 02:00 Pulse Rate 100 H 08/01/16 08:00 Respiratory Rate 18 08/01/16 08:00 Blood Pressure 166/83 08/01/16 08:00 O2 Sat by Pulse Oximetry (%) 98 07/31/16 20:47 Constitutional: Yes: No Distress, Calm Neck: Yes: Supple Cardiovascular: Yes: Regular Rate and Rhythm Respiratory: Yes: Regular, Diminished, On Nasal O2 Gastrointestinal: Yes: Normal Bowel Sounds, Soft Edema: No Labs: CBC, BMP 08/01/16 05:20 08/01/16 05:20 INR, PTT INR 1.07 (0.82-1.09) 07/31/16 05:50 Problem List - Problems (1) Acute on chronic renal failure Code(s): N17.9 - ACUTE KIDNEY FAILURE, UNSPECIFIED N18.9 - CHRONIC KIDNEY DISEASE, UNSPECIFIED Qualifiers: Acute renal failure type: unspecified Chronic kidney disease stage: unspecified stage Qualified Code(s): N17.9 - Acute kidney failure, unspecified; N18.9 - Chronic kidney disease, unspecified (2) COPD (chronic obstructive pulmonary disease) Code(s): J44.9 - CHRONIC OBSTRUCTIVE PULMONARY DISEASE, UNSPECIFIED Qualifiers : COPD type: unspecified COPD Qualified Code(s): J44.9 - Chronic obstructive pulmonary disease, unspecified (3) Chronic hypoxemic respiratory failure Code(s): J96.11 - CHRONIC RESPIRATORY FAILURE WITH HYPOXIA (4) Leukocytosis Code(s): D72.829 - ELEVATED WHITE BLOOD CELL COUNT, UNSPECIFIED Qualifiers: Leukocytosis type: other Qualified Code(s): D72.828 - Other elevated white blood cell count (5) Pneumonia Code(s): J18.9 - PNEUMONIA, UNSPECIFIED ORGANISM Qualifiers: Pneumonia type: due to unspecified organism Laterality: right Lung location: lower lobe of lung Qualified Code(s): J18.1 - Lobar pneumonia, unspecified organism (6) Status post fall Code(s): Z91.89 - OTH PERSONAL RISK FACTORS, NOT ELSEWHERE CLASSIFIED (7) Weakness Code(s): R53.1 - WEAKNESS (8) ASHD (arteriosclerotic heart disease) Code(s): I25.10 - ATHSCL HEART DISEASE OF [place] CORONARY ARTERY W/O ANG PCTRS (9) Anemia Code(s): D64.9 - ANEMIA, UNSPECIFIED Qualifiers: Anemia type: due to other cause Other causes of anemia: chronic disease , kidney (10) Aortic stenosis Code(s): I35.0 - NONRHEUMATIC AORTIC (VALVE) STENOSIS Qualifiers: Cardiac valve disease etiology: nonrheumatic Qualified Code(s): I35.0 - Nonrheumatic aortic (valve) stenosis (11) CAD (coronary artery disease) Code(s): I25.10 - ATHSCL HEART DISEASE OF [place] CORONARY ARTERY W/O ANG PCTRS Qualifiers: Coronary Disease-Associated Artery/Lesion type: [place] artery [place] vs. transplanted heart: [place] heart Associated angina: without angina Qualified Code(s): I25.10 - Atherosclerotic heart disease of [place] coronary artery without angina pectoris (12) Dizziness Code(s): R42 - DIZZINESS AND GIDDINESS (13) HTN (hypertension) Code(s): I10 - ESSENTIAL (PRIMARY) HYPERTENSION Qualifiers: Hypertension type: essential hypertension Qualified Code(s): I10 - Essential (primary) hypertension (14) Hypothyroid Code(s): E03.9 - HYPOTHYROIDISM, UNSPECIFIED Qualifiers: Hypothyroidism type: unspecified Qualified Code(s): E03.9 - Hypothyroidism, unspecified (15) Orthostatic dizziness Code(s): R42 - DIZZINESS AND GIDDINESS (16) S/P coronary artery stent placement Code(s): Z95.5 - PRESENCE OF CORONARY ANGIOPLASTY IMPLANT AND GRAFT Assessment/Plan Transthoracic echocardiography reveals at least moderate or moderate to severe aortic valve stenosis with ERNESTO 0.8 cm 2 and mean gradient of 24 mmHg 1. GI bleed 2. RLL Pneumonia with leukocytosis 3. Gait dysfunction, no LOC, near syncope due to postural hypotension 4. CAD s/p PCI/stent, angina pectoris 5. HTN/HCVD 6. Hypercholesterolemia 7. Diastolic left ventricular dysfunction with class 1 NYHA classification LV failure and pulmonary HTN 8. Aortic valve disease - moderate aortic valve stenosis 9. Hypothyroidism 10. History of lung CA post chemotherapy 11. History of breast CA post lumpectomy and chemotherapy 12. Acute on CKD due to sepsis 13. Anemia and history of post-polypectomy bleed 14. COPD with chronic hypoxemic respiratory failure PLAN: 1. Monitor Hgb post transfusion PRBC 2. Complete antibiotic course 3. Continue hydration with caution. Lisinopril and diuretics held pending renal fxn stabilization 4. Continue Carvedilol 12.5 mg bid, ASA d/ana 5. Protonix gtt, steroids d/ana and inhaler as needed
--- NOTE | 2016-08-01 12:01 | PN ---
GI Progress Note Subjective: GI NOte: Stool are still dark but Hb is stable. Discussed need to repeat EGD given retained food with Eda and her once stabilized. - Objective Vital Signs: Vital Signs Temperature 98 F 08/01/16 10:00 Pulse Rate 102 H 08/01/16 10:00 Respiratory Rate 18 08/01/16 10:00 Blood Pressure 121/70 08/01/16 10:00 O2 Sat by Pulse Oximetry (%) 98 07/31/16 20:47 CBC,CMP WBC 16.8 K/mm3 (4.0-10.0) H 08/01/16 05:20 RBC 3.33 M/mm3 (3.60-5.2) L 08/01/16 05:20 Hgb 9.5 GM/dL (10.7-15.3) L 08/01/16 05:20 Hct 29.0 % (32.4-45.2) L 08/01/16 05:20 MCV 87.0 fl (80-96) 08/01/16 05:20 MCHC 32.9 g/dl (32.0-36.0) 08/01/16 05:20 RDW 16.0 % (11.6-15.6) H 08/01/16 05:20 Plt Count 292 K/MM3 (134-434) 08/01/16 05:20 MPV 6.9 fl (7.5-11.1) L 08/01/16 05:20 Neutrophils % 92.6 % (42.8-82.8) H 08/01/16 05:20 Lymphocytes % 4.3 % (8-40) L 08/01/16 05:20 Monocytes % 2.9 % (3.8-10.2) L 08/01/16 05:20 Eosinophils % 0.0 % (0-4.5) 08/01/16 05:20 Basophils % 0.2 % (0-2.0) 08/01/16 05:20 Band Neutrophils 0.0 % (0-10) D 07/26/16 19:00 Differential Comment Manual diff done 07/31/16 05:50 Platelet Estimate Increased (NORMAL) 07/31/16 05:50 Sodium 147 mmol/L (136-145) H 08/01/16 05:20 Potassium 4.0 mmol/L (3.5-5.1) 08/01/16 05:20 Chloride 114 mmol/L (98-107) H 08/01/16 05:20 Carbon Dioxide 21 mmol/L (21-32) 08/01/16 05:20 Anion Gap 12 (8-16) 08/01/16 05:20 BUN 99 mg/dL (7-18) H 08/01/16 05:20 Creatinine 2.3 mg/dL (0.55-1.02) H 08/01/16 05:20 Creat Clearance w eGFR 17.90 (>60) 07/31/16 05:50 POC Glucometer 183 UNITS (()) 07/31/16 06:59 Random Glucose 134 mg/dL (74-106) H 08/01/16 05:20 Calcium 8.5 mg/dL (8.5-10.1) 08/01/16 05:20 Magnesium 3.4 mg/dL (1.8-2.4) H D 07/27/16 10:00 Iron 44 ug/dL (27-139) 07/29/16 11:08 TIBC 223 ug/dL (250-450) L 07/29/16 11:08 Iron Saturation 20 % (15-55) 07/29/16 11:08 Ferritin 238.047 ng/ml (6.9-282.5) 07/29/16 11:08 Total Bilirubin 0.2 mg/dL (0.2-1.0) 07/31/16 05:50 AST 14 U/L (15-37) L 07/31/16 05:50 ALT 30 U/L (12-78) D 07/31/16 05:50 Alkaline Phosphatase 53 U/L (45-117) 07/31/16 05:50 Creatine Kinase 42 IU/L (26-192) 07/27/16 10:00 Troponin I 0.04 ng/ml (0.00-0.05) 07/31/16 05:50 Total Protein 5.3 g/dl (6.4-8.2) L 07/31/16 05:50 Albumin 1.9 g/dl (3.4-5.0) L 07/31/16 05:50 Carcinoembryonic Ag 3.6 ng/mL (0.0-4.7) 07/29/16 11:08 Constitutional: No Distress ...Auscultate: Yes: Normoactive Bowel Sounds ...Palpate: Yes: Soft, Other (nontender) Labs: CBC, BMP 08/01/16 05:20 08/01/16 05:20 INR, PTT INR 1.07 (0.82-1.09) 07/31/16 05:50 Assessment/Plan S/P EGD with cauterization of bleeding foci but with much of the stomach obscured by food. Will start clear liquids. Will repeat EGD before dsicharge.
--- NOTE | 2016-08-01 12:20 | PN ---
Teaching Attending Note Name of Resident: Rachell Chu ATTENDING PHYSICIAN STATEMENT I saw and evaluated the patient. I reviewed the resident's note and discussed the case with the resident. I agree with the resident's findings and plan as documented. SUBJECTIVE: Laying in bed in NAD on NC O2. Feels weak. Some dry cough. Still passing dark stool but H&H stable. No CP. Intake & Output 07/29/16 07/30/16 07/31/16 08/01/16 23:59 23:59 23:59 23:59 Intake Total 1725 3085 3345 100 Output Total 1 Balance 1725 3085 3344 100 Weight 94 lb 4.8 oz 95 lb 9.6 oz Last Vital Signs Temp Pulse Resp BP Pulse Ox 98 F 108 H 18 121/70 97 08/01/16 10:00 08/01/16 12:00 08/01/16 10:00 08/01/16 10:00 08/01/16 12:00 Active Medications Acetaminophen (Tylenol -) 650 mg PO Q4H PRN PRN Reason: FEVER OR PAIN Last Admin: 08/01/16 09:07 Dose: 650 mg Albuterol/Ipratropium (Duoneb -) 1 amp NEB QIDR [facility] Last Admin: 08/01/16 11:57 Dose: 1 amp Budesonide/Formoterol Fumarate (Symbicort 160/4.5mcg -) 2 puff IH BID [facility] Carvedilol (Coreg -) 12.5 mg PO BID [facility] Last Admin: 08/01/16 09:06 Dose: 12.5 mg Cholecalciferol (Vitamin D3 -) 1,000 unit PO DAILY [facility] Last Admin: 08/01/16 09:08 Dose: 1,000 unit Citalopram Hydrobromide (Celexa -) 40 mg PO DAILY [facility] Last Admin: 08/01/16 09:07 Dose: 40 mg Sodium Chloride (Normal Saline -) 1,000 mls @ 75 mls/hr IV Q13H NURIS Last Admin: 07/31/16 21:54 Dose: Not Given Pantoprazole Sodium 80 mg/ (Sodium Chloride) 100 mls @ 10 mls/hr IVPB Q10H NURIS PRN Reason: 8 MG/HR Last Admin: 08/01/16 03:00 Dose: 10 mls/hr Piperacillin Sod/Tazobactam Sod (Zosyn 2.25gm Ivpb (Pre-Docked)) 50 mls @ 100 mls/hr IVPB Q8H-IV NURIS PRN Reason: Protocol Last Admin: 08/01/16 09:06 Dose: 100 mls/hr Levothyroxine Sodium (Synthroid -) 88 mcg PO DAILY@0700 [facility] Last Admin: 08/01/16 07:28 Dose: Not Given Methylprednisolone Sodium Succinate (Solu-Medrol -) 40 mg IVPB DAILY [facility] Last Admin: 08/01/16 09:09 Dose: 40 mg General: weak appearing, NAD Cardiovascular: Yes: Murmur, S1, S2 Respiratory: Yes: Diminished at the bases , Scattered bilateral Rhonchi / Wheezes Gastrointestinal: Yes: Normal Bowel Sounds, Soft Edema: No Labs: Laboratory Results - last 24 hr 07/31/16 07/31/16 08/01/16 05:50 05:50 01:00 WBC 17.6 H D RBC 3.45 L D Hgb 9.8 L D Hct 30.4 L D MCV 88.3 MCHC 32.3 RDW 16.4 H Plt Count 265 D MPV 6.9 L Neutrophils % 90.0 H Lymphocytes % 5.0 L D Monocytes % 5.0 D Eosinophils % Basophils % Differential Comment Manual diff done Platelet Estimate Increased Sodium Potassium Chloride Carbon Dioxide Anion Gap BUN Creatinine Random Glucose Calcium Blood Type B POSITIVE Antibody Screen Negative Crossmatch See Detail 08/01/16 08/01/16 05:20 05:20 WBC 16.8 H RBC 3.33 L Hgb 9.5 L Hct 29.0 L MCV 87.0 MCHC 32.9 RDW 16.0 H Plt Count 292 MPV 6.9 L Neutrophils % 92.6 H Lymphocytes % 4.3 L Monocytes % 2.9 L Eosinophils % 0.0 Basophils % 0.2 Differential Comment Platelet Estimate Sodium 147 H Potassium 4.0 Chloride 114 H Carbon Dioxide 21 Anion Gap 12 BUN 99 H Creatinine 2.3 H Random Glucose 134 H Calcium 8.5 Blood Type Antibody Screen Crossmatch Problem List - Problems (1) Acute on chronic renal failure Assessment/Plan: Code(s): N17.9 - ACUTE KIDNEY FAILURE, UNSPECIFIED N18.9 - CHRONIC KIDNEY DISEASE, UNSPECIFIED Qualifiers: Acute renal failure type: unspecified Chronic kidney disease stage: unspecified stage Qualified Code(s): N17.9 - Acute kidney failure, unspecified; N18.9 - Chronic kidney disease, unspecified (2) COPD (chronic obstructive pulmonary disease) Assessment/Plan: Code(s): J44.9 - CHRONIC OBSTRUCTIVE PULMONARY DISEASE, UNSPECIFIED Qualifiers : COPD type: unspecified COPD Qualified Code(s): J44.9 - Chronic obstructive pulmonary disease, unspecified (3) Leukocytosis Assessment/Plan: Code(s): D72.829 - ELEVATED WHITE BLOOD CELL COUNT, UNSPECIFIED Qualifiers: Leukocytosis type: other Qualified Code(s): D72.828 - Other elevated white blood cell count (4) Pneumonia Assessment/Plan: Code(s): J18.9 - PNEUMONIA, UNSPECIFIED ORGANISM Qualifiers: Pneumonia type: due to unspecified organism Laterality: right Lung location: lower lobe of lung Qualified Code(s): J18.1 - Lobar pneumonia, unspecified organism (5) CHF (congestive heart failure) Assessment/Plan: Code(s): I50.9 - HEART FAILURE, UNSPECIFIED (6) Lung cancer Code(s): C34.90 - MALIGNANT NEOPLASM OF UNSP PART OF UNSP BRONCHUS OR LUNG Qualifiers: Lung location: unspecified part of lung PLAN: ABX Medrol daily BD TX O2 as needed Normal transfusion thresholds VTE prophylaxis PO when OK with GI Dr Henriquez critical care time spent in reviewing chart, evaluating patient and formulating plan 35 min
--- NOTE | 2016-08-01 12:31 | PN ---
Progress Note (short form) - Note Progress Note: GI Addendum: I returned to get Eda's informed consent to repeat her EGd tomorrow with Dr France. I informed her of the potential for such adverse effects as perforation and hemorrhage leading to the potential need for transfusions and surgery.
--- NOTE | 2016-08-01 14:18 | PN ---
Progress Note, Physician History of Present Illness: Pt seen and examined at bedside. She is now in the ICU. She is going for an EGD tomorrow. - Current Medication List Current Medications: Active Medications Acetaminophen (Tylenol -) 650 mg PO Q4H PRN PRN Reason: FEVER OR PAIN Last Admin: 08/01/16 09:07 Dose: 650 mg Albuterol/Ipratropium (Duoneb -) 1 amp NEB QIDR [facility] Last Admin: 08/01/16 11:57 Dose: 1 amp Budesonide/Formoterol Fumarate (Symbicort 160/4.5mcg -) 2 puff IH BID [facility] Carvedilol (Coreg -) 12.5 mg PO BID [facility] Last Admin: 08/01/16 09:06 Dose: 12.5 mg Cholecalciferol (Vitamin D3 -) 1,000 unit PO DAILY [facility] Last Admin: 08/01/16 09:08 Dose: 1,000 unit Citalopram Hydrobromide (Celexa -) 40 mg PO DAILY [facility] Last Admin: 08/01/16 09:07 Dose: 40 mg Sodium Chloride (Normal Saline -) 1,000 mls @ 75 mls/hr IV Q13H [facility] Last Admin: 07/31/16 21:54 Dose: Not Given Pantoprazole Sodium 80 mg/ (Sodium Chloride) 100 mls @ 10 mls/hr IVPB Q10H NURIS PRN Reason: 8 MG/HR Last Admin: 08/01/16 03:00 Dose: 10 mls/hr Piperacillin Sod/Tazobactam Sod (Zosyn 2.25gm Ivpb (Pre-Docked)) 50 mls @ 100 mls/hr IVPB Q8H-IV NURIS PRN Reason: Protocol Last Admin: 08/01/16 09:06 Dose: 100 mls/hr Levothyroxine Sodium (Synthroid -) 88 mcg PO DAILY@0700 [facility] Last Admin: 08/01/16 07:28 Dose: Not Given Methylprednisolone Sodium Succinate (Solu-Medrol -) 40 mg IVPB DAILY [facility] Last Admin: 08/01/16 09:09 Dose: 40 mg - Objective Vital Signs: Vital Signs Temperature 98 F 08/01/16 10:00 Pulse Rate 102 H 08/01/16 12:00 Respiratory Rate 18 08/01/16 12:00 Blood Pressure 140/90 08/01/16 12:00 O2 Sat by Pulse Oximetry (%) 97 08/01/16 12:00 Constitutional: Yes: Calm Eyes: Yes: Conjunctiva Clear HENT: Yes: Atraumatic Neck: Yes: Supple Cardiovascular: Yes: S1, S2 Respiratory: Yes: Diminished, On Nasal O2 Gastrointestinal: Yes: Soft Genitourinary: Yes: WNL Musculoskeletal: Yes: Muscle Weakness Edema: No Neurological: Yes: Oriented Psychiatric: Yes: Oriented Labs: CBC, BMP 08/01/16 05:20 08/01/16 05:20 INR, PTT INR 1.07 (0.82-1.09) 07/31/16 05:50 Problem List - Problems (1) Acute on chronic renal failure Code(s): N17.9 - ACUTE KIDNEY FAILURE, UNSPECIFIED N18.9 - CHRONIC KIDNEY DISEASE, UNSPECIFIED Qualifiers: Acute renal failure type: unspecified Chronic kidney disease stage: unspecified stage Qualified Code(s): N17.9 - Acute kidney failure, unspecified; N18.9 - Chronic kidney disease, unspecified (2) COPD (chronic obstructive pulmonary disease) Code(s): J44.9 - CHRONIC OBSTRUCTIVE PULMONARY DISEASE, UNSPECIFIED Qualifiers : COPD type: unspecified COPD Qualified Code(s): J44.9 - Chronic obstructive pulmonary disease, unspecified (3) Chronic hypoxemic respiratory failure Code(s): J96.11 - CHRONIC RESPIRATORY FAILURE WITH HYPOXIA (4) Hyperkalemia Code(s): E87.5 - HYPERKALEMIA (5) Hypoxia Code(s): R09.02 - HYPOXEMIA (6) Leukocytosis Code(s): D72.829 - ELEVATED WHITE BLOOD CELL COUNT, UNSPECIFIED Qualifiers: Leukocytosis type: other Qualified Code(s): D72.828 - Other elevated white blood cell count (7) Pneumonia Code(s): J18.9 - PNEUMONIA, UNSPECIFIED ORGANISM Qualifiers: Pneumonia type: due to unspecified organism Laterality: right Lung location: lower lobe of lung Qualified Code(s): J18.1 - Lobar pneumonia, unspecified organism (8) Breast CA Code(s): C50.919 - MALIGNANT NEOPLASM OF UNSP SITE OF UNSPECIFIED FEMALE BREAST (9) CAD (coronary artery disease) Code(s): I25.10 - ATHSCL HEART DISEASE OF [place] CORONARY ARTERY W/O ANG PCTRS Qualifiers: Coronary Disease-Associated Artery/Lesion type: [place] artery [place] vs. transplanted heart: [place] heart Associated angina: without angina Qualified Code(s): I25.10 - Atherosclerotic heart disease of [place] coronary artery without angina pectoris Assessment/Plan Current Medications Generic Name Dose Route Start Last Admin Trade Name Freq PRN Reason Stop Dose Admin Acetaminophen 650 mg 07/31/16 09:42 08/01/16 09:07 Tylenol - PO 650 mg Q4H PRN Administration FEVER OR PAIN Albuterol/Ipratropium 1 amp 07/31/16 12:00 08/01/16 11:57 Duoneb - NEB 1 amp QIDR NURIS Administration Budesonide/Formoterol Fumarate 2 puff 07/31/16 10:00 Symbicort 160/4.5mcg - IH BID NURIS Carvedilol 12.5 mg 07/31/16 10:00 08/01/16 09:06 Coreg - PO 12.5 mg BID NURIS Administration Cholecalciferol 1,000 unit 07/31/16 10:00 08/01/16 09:08 Vitamin D3 - PO 1,000 unit DAILY NURIS Administration Citalopram Hydrobromide 40 mg 07/31/16 10:00 08/01/16 09:07 Celexa - PO 40 mg DAILY NURIS Administration Sodium Chloride 1,000 mls @ 75 mls/hr 07/31/16 08:45 07/31/16 21:54 Normal Saline - IV Not Given Q13H NURIS Pantoprazole Sodium 80 mg/ 100 mls @ 10 mls/hr 07/31/16 15:30 08/01/16 03:00 Sodium Chloride IVPB 10 mls/hr Q10H NURIS Administration 8 MG/HR Piperacillin Sod/Tazobactam Sod 50 mls @ 100 mls/hr 07/31/16 10:00 08/01/16 09: 06 Zosyn 2.25gm Ivpb (Pre-Docked) IVPB 100 mls/hr Q8H-IV NURIS Administration Protocol Levothyroxine Sodium 88 mcg 08/01/16 07:00 08/01/16 07:28 Synthroid - PO Not Given DAILY@0700 NURIS Methylprednisolone Sodium Succinate 40 mg 07/31/16 10:00 08/01/16 09:09 Solu-Medrol - IVPB 40 mg DAILY NURIS Administration Impression 1. CKD 2. FRANK 3. hyperkalemia 4. CAD with cardiac stents 5. HTN 6. Hyperlipidemia 7. Hypothyroidism 8. H/O Breast 9. Lung Ca 10. Anemia 11. sepsis 12. PNA 13. hypernatremia Plan - change fluids from ns to d5 as blood pressure is elevated and pt is hypernatremic - GI input appreciated - repeat labs in am - monitor Hg - cont with abx - renal function is improving - monitor pulse ox - will follow pt Dr Schilling
[2016-08-01] MEDS ORDERED: DEXTROSE 5%-WATER - 1,000 ML IV SCH (14:30)
[2016-08-01] MEDS ORDERED: oxyCODONE HCL 5 MG TABLET PO ONE (14:33)
[2016-08-01] MEDS: BUDESONIDE/FORMETEROL FUMARATE 160/4.5 mcg INHALER IH SCH ×3 (14:50→22:00)
[2016-08-01] MEDS: SODIUM CHLORIDE 1,000 ML IV SCH (14:52)
--- NOTE | 2016-08-01 15:52 | PN ---
Physical Exam: SUBJECTIVE: Patient seen and examined. She is feeling better today. She denies SOB, cough, fever, chills, more episodes of bleeding. No overnight events. OBJECTIVE: Vital Signs Period Temp Pulse Resp BP Sys/Kennedy Pulse Ox Last 24 Hr 97.2 F-98 F 98-108 18-25 121-176/70-90 97-98 GENERAL: The patient is awake, alert, and fully oriented, in no acute distress. HEAD: Normal with no signs of trauma. EYES: extraocular movements intact, sclera anicteric, conjunctiva clear. ENT: oropharynx clear without exudates, moist mucous membranes. NECK: Trachea midline, full range of motion, supple. LUNGS: Breath sounds equal, crackles and rhonchi bilaterally, no wheezes, no crackles, no accessory muscle use. HEART: Regular rate and rhythm, S1, S2 without murmur, rub or gallop. ABDOMEN: Soft, nontender, nondistended, normoactive bowel sounds, no guarding, no rebound, no hepatosplenomegaly, no masses. EXTREMITIES: no edema. NEUROLOGICAL: No facial asymmetry. Normal speech, gait not observed. PSYCH: Normal mood, normal affect. SKIN: Warm, dry, normal turgor. Laboratory Results - last 24 hr 08/01/16 08/01/16 08/01/16 01:00 05:20 05:20 WBC 17.6 H D 16.8 H RBC 3.45 L D 3.33 L Hgb 9.8 L D 9.5 L Hct 30.4 L D 29.0 L MCV 88.3 87.0 MCHC 32.3 32.9 RDW 16.4 H 16.0 H Plt Count 265 D 292 MPV 6.9 L 6.9 L Neutrophils % 92.6 H Lymphocytes % 4.3 L Monocytes % 2.9 L Eosinophils % 0.0 Basophils % 0.2 Sodium 147 H Potassium 4.0 Chloride 114 H Carbon Dioxide 21 Anion Gap 12 BUN 99 H Creatinine 2.3 H Random Glucose 134 H Calcium 8.5 Active Medications Generic Name Dose Route Start Last Admin Trade Name Freq PRN Reason Stop Dose Admin Acetaminophen 650 mg 07/31/16 09:42 08/01/16 09:07 Tylenol - PO 650 mg Q4H PRN Administration FEVER OR PAIN Albuterol/Ipratropium 1 amp 07/31/16 12:00 08/01/16 11:57 Duoneb - NEB 1 amp QIDR NURIS Administration Budesonide/Formoterol Fumarate 2 puff 07/31/16 10:00 08/01/16 14:52 Symbicort 160/4.5mcg - IH 2 puff BID NURIS Administration Carvedilol 12.5 mg 07/31/16 10:00 08/01/16 09:06 Coreg - PO 12.5 mg BID NURIS Administration Cholecalciferol 1,000 unit 07/31/16 10:00 08/01/16 09:08 Vitamin D3 - PO 1,000 unit DAILY NURIS Administration Citalopram Hydrobromide 40 mg 07/31/16 10:00 08/01/16 09:07 Celexa - PO 40 mg DAILY NUIRS Administration Pantoprazole Sodium 80 mg/ 100 mls @ 10 mls/hr 07/31/16 15:30 08/01/16 14:52 Sodium Chloride IVPB 10 mls/hr Q10H NURIS Administration 8 MG/HR Piperacillin Sod/Tazobactam Sod 50 mls @ 100 mls/hr 07/31/16 10:00 08/01/16 09: 06 Zosyn 2.25gm Ivpb (Pre-Docked) IVPB 100 mls/hr Q8H-IV NURIS Administration Protocol Dextrose 1,000 mls @ 42 mls/hr 08/01/16 14:30 D5w - IV .[id number] NURIS Levothyroxine Sodium 88 mcg 08/01/16 07:00 08/01/16 07:28 Synthroid - PO Not Given DAILY@0700 NURIS Methylprednisolone Sodium Succinate 40 mg 07/31/16 10:00 08/01/16 09:09 Solu-Medrol - IVPB 40 mg DAILY NURIS Administration ASSESSMENT/PLAN: Patient is a 76 year old female with history of CAD S/P PCI/stent, angina pectoris, diastolic LV failure, moderate , hypercholesterolemia, pulmonary hypertension, HTN/HCVD, lung CA post chemotherapy, breast CA post chemotherapy, COPD, CKD and diverticular disease. She presented complaining of dizziness, anorexia, unsteady gait, weakness and multiple falls without true syncope. She was admitted for RLL pneumonia and later was found to have upper GI bleeding. RLL Pneumonia with leukocytosis -today WBC is 16.8 -continue Zosyn, -ID consulted -f/u CXR -Tylenol for Fever -Solu-medrol 40 mg qd upper GI bleeding: -s/p endoscopy 06/02/16, f/u recommendation. She is scheduled for another EGFD tomorrow. -NPO after midnight Microcytic anemia: -Hgb today is 9.5 -f/u CBC tomorrow FRANK -Cr 2.3, BUN elevated -avoid nephrotoxic substances -cont D5W -f/u Nephrology consultation near syncope due to postural hypotension -fall risk precautions -cont IVF-D5W COPD -cont Symbicort and Solu-medrol, Duoneb CAD s/p PCI/stent, angina pectoris HTN -cont Coreg Hypercholesterolemia Hypothyroidism -cont Synthroid 88 mcg History of lung CA post chemotherapy History of breast CA post lumpectomy, chemotherapy F/E/N: D5W/No abnormalities/Clear liquid for now and NPO after midnight DVD PPX: scds Disposition: can transfer to telemetry Problem List - Problems (1) Acute on chronic renal failure Code(s): N17.9 - ACUTE KIDNEY FAILURE, UNSPECIFIED N18.9 - CHRONIC KIDNEY DISEASE, UNSPECIFIED Qualifiers: Acute renal failure type: unspecified Chronic kidney disease stage: unspecified stage Qualified Code(s): N17.9 - Acute kidney failure, unspecified; N18.9 - Chronic kidney disease, unspecified (2) COPD (chronic obstructive pulmonary disease) Code(s): J44.9 - CHRONIC OBSTRUCTIVE PULMONARY DISEASE, UNSPECIFIED Qualifiers : COPD type: unspecified COPD Qualified Code(s): J44.9 - Chronic obstructive pulmonary disease, unspecified (3) Hyperkalemia Code(s): E87.5 - HYPERKALEMIA (4) Leukocytosis Code(s): D72.829 - ELEVATED WHITE BLOOD CELL COUNT, UNSPECIFIED Qualifiers: Leukocytosis type: other Qualified Code(s): D72.828 - Other elevated white blood cell count (5) Pneumonia Code(s): J18.9 - PNEUMONIA, UNSPECIFIED ORGANISM Qualifiers: Pneumonia type: due to unspecified organism Laterality: right Lung location: lower lobe of lung Qualified Code(s): J18.1 - Lobar pneumonia, unspecified organism (6) Acute kidney failure Code(s): N17.9 - ACUTE KIDNEY FAILURE, UNSPECIFIED Qualifiers: Acute renal failure type: with other specified pathological lesion Qualified Code(s): N17.8 - Other acute kidney failure (7) Aortic stenosis Code(s): I35.0 - NONRHEUMATIC AORTIC (VALVE) STENOSIS Qualifiers: Cardiac valve disease etiology: nonrheumatic Qualified Code(s): I35.0 - Nonrheumatic aortic (valve) stenosis (8) Breast CA Code(s): C50.919 - MALIGNANT NEOPLASM OF UNSP SITE OF UNSPECIFIED FEMALE BREAST (9) CAD (coronary artery disease) Code(s): I25.10 - ATHSCL HEART DISEASE OF [place] CORONARY ARTERY W/O ANG PCTRS Qualifiers: Coronary Disease-Associated Artery/Lesion type: [place] artery [place] vs. transplanted heart: [place] heart Associated angina: without angina Qualified Code(s): I25.10 - Atherosclerotic heart disease of [place] coronary artery without angina pectoris (10) CHF (congestive heart failure) Code(s): I50.9 - HEART FAILURE, UNSPECIFIED Qualifiers: Congestive heart failure type: diastolic Congestive heart failure chronicity: acute on chronic Qualified Code(s): I50.33 - Acute on chronic diastolic (congestive) heart failure (11) HTN (hypertension) Code(s): I10 - ESSENTIAL (PRIMARY) HYPERTENSION Qualifiers: Hypertension type: essential hypertension Qualified Code(s): I10 - Essential (primary) hypertension (12) Hypothyroid Code(s): E03.9 - HYPOTHYROIDISM, UNSPECIFIED Qualifiers: Hypothyroidism type: unspecified Qualified Code(s): E03.9 - Hypothyroidism, unspecified Visit type - Emergency Visit Emergency Visit: Yes ED Registration Date: 07/27/16 Care time: The patient presented to the Emergency Department on the above date and was hospitalized for further evaluation of their emergent condition. - New Patient This patient is new to me today: Yes Date on this admission: 08/01/16 - Critical Care Critical Care patient: Yes Total Critical Care Time (in minutes): 45 Critical Care Statement: The care of this patient involved high complexity decision making to prevent further life threatening deterioration of the patient 's condition and/or to evalute & treat vital organ system(s) failure or risk of failure.
--- NOTE | 2016-08-01 16:33 | PN ---
Progress Note (short form) - Note Progress Note: overall feels better transferred to ICU for hemetemesis s/p EGD, for repeat EGD yesterday less cough Vital Signs Period Temp Pulse Resp BP Sys/Kennedy Pulse Ox Last 24 Hr 97.2 F-98 F 98-108 18-25 121-176/70-90 97-98 cor-rrr lungs decreased bs at bases abd soft,nt ext no edema CBC, BMP 08/01/16 05:20 08/01/16 05:20 Microbiology 07/27/16 10:00 Blood - Peripheral Venous Blood Culture - Final NO GROWTH AFTER 5 DAYS INCUBATION 07/27/16 10:00 Blood - Peripheral Venous Blood Culture - Final NO GROWTH AFTER 5 DAYS INCUBATION 07/27/16 16:30 Sputum - Expectorated Gram Stain - Final 07/27/16 16:30 Sputum - Expectorated Sputum Culture - Final Pseudomonas Aeruginosa Yeast Like Organism 07/30/16 09:00 Stool Clostridium difficile Antigen (SAE) - Final 07/30/16 09:00 Stool Clostridium difficile Toxin Assay - Final 07/27/16 18:15 Urine For Antigen Detection Legionella Antigen - Final 07/27/16 18:15 Urine For Antigen Detection Streptococcus pneumoniae Antigen (M - Final 07/26/16 20:18 Urine - Urine - Catheterized Urine Culture - Final NO GROWTH OBTAINED chest ct- RLL infiltrate a/p pneumonia- continue zosyn day #5 check cultures, blood, urine, sputum, urinary antigens leukocytosis improved ct scan with acute left spenoid sinusitis continue ivf for FRANK copd- home oxygen s/p UGI bleed for egd in am Problem List - Problems (1) Leukocytosis Code(s): D72.829 - ELEVATED WHITE BLOOD CELL COUNT, UNSPECIFIED Qualifiers: Leukocytosis type: other Qualified Code(s): D72.828 - Other elevated white blood cell count (2) Pneumonia Code(s): J18.9 - PNEUMONIA, UNSPECIFIED ORGANISM Qualifiers: Pneumonia type: due to unspecified organism Laterality: right Lung location: lower lobe of lung Qualified Code(s): J18.1 - Lobar pneumonia, unspecified organism (3) Acute kidney failure Code(s): N17.9 - ACUTE KIDNEY FAILURE, UNSPECIFIED Qualifiers: Acute renal failure type: with other specified pathological lesion Qualified Code(s): N17.8 - Other acute kidney failure (4) COPD (chronic obstructive pulmonary disease) Code(s): J44.9 - CHRONIC OBSTRUCTIVE PULMONARY DISEASE, UNSPECIFIED Qualifiers : COPD type: unspecified COPD Qualified Code(s): J44.9 - Chronic obstructive pulmonary disease, unspecified
[2016-08-01] MEDS: FLUCONAZOLE 100 MG TABLET (UD) PO SCH (17:42)
[2016-08-01] MEDS: oxyCODONE HCL 5 MG TABLET PO PRN (20:18)
[2016-08-02] MEDS: ALBUTEROL SO4 2.5/IPRATROPIUM 0.5 INH SOL 3 ML VIAL.NEB. NEB SCH ×4 (00:06→17:08)
[2016-08-02] MEDS: PIPERACILLIN/TAZOB 2.25 GM 50 ML IVPB SCH ×3 (03:00→18:04)
--- NOTE | 2016-08-02 06:52 | PN ---
Progress Note (short form) - Note Progress Note: Chief Complaint: Events noted, notes reviewed, no further bleed noted, denies any chest pain or dyspnea History of Present Illness: Seen and examined in the ICU. Events noted, notes reviewed, no further bleed noted, denies any chest pain or dyspnea Sinus rhythm noted Medications: Current Medications Acetaminophen (Tylenol -) 650 mg PO Q4H PRN PRN Reason: FEVER OR PAIN Last Admin: 08/01/16 20:18 Dose: 650 mg Albuterol/Ipratropium (Duoneb -) 1 amp NEB QIDR [facility] Last Admin: 08/02/16 00:06 Dose: 1 amp Budesonide/Formoterol Fumarate (Symbicort 160/4.5mcg -) 2 puff IH BID [facility] Last Admin: 08/01/16 22:00 Dose: 2 puff Carvedilol (Coreg -) 12.5 mg PO BID [facility] Last Admin: 08/01/16 21:39 Dose: 12.5 mg Cholecalciferol (Vitamin D3 -) 1,000 unit PO DAILY [facility] Last Admin: 08/01/16 09:08 Dose: 1,000 unit Citalopram Hydrobromide (Celexa -) 40 mg PO DAILY [facility] Last Admin: 08/01/16 09:07 Dose: 40 mg Fluconazole (Diflucan -) 100 mg PO DAILY [facility] Last Admin: 08/01/16 17:42 Dose: 100 mg Pantoprazole Sodium 80 mg/ (Sodium Chloride) 100 mls @ 10 mls/hr IVPB Q10H [facility] PRN Reason: 8 MG/HR Last Admin: 08/01/16 21:39 Dose: Not Given Piperacillin Sod/Tazobactam Sod (Zosyn 2.25gm Ivpb (Pre-Docked)) 50 mls @ 100 mls/hr IVPB Q8H-IV NURIS PRN Reason: Protocol Last Admin: 08/02/16 03:00 Dose: 100 mls/hr Dextrose (D5w -) 1,000 mls @ 42 mls/hr IV .[id number] [facility] Levothyroxine Sodium (Synthroid -) 88 mcg PO DAILY@0700 [facility] Last Admin: 08/01/16 07:28 Dose: Not Given Methylprednisolone Sodium Succinate (Solu-Medrol -) 40 mg IVPB DAILY [facility] Last Admin: 08/01/16 09:09 Dose: 40 mg Oxycodone HCl (Roxicodone -) 5 mg PO Q6H PRN PRN Reason: PAIN Last Admin: 08/01/16 20:18 Dose: 5 mg Review of Systems Cardiovascular: As noted above Respiratory: denies: Cough or Sputum Production Gastrointestinal: denies: Nausea, Vomiting, Diarrhea, Constipation or Abdominal Discomfort Musculoskeletal: Chronic Low Back Pain Syndrome Endocrine: No Symptoms Reported *Physical Exam - Vital Signs Last Vital Signs Temp Pulse Resp BP Pulse Ox 97.9 F 81 21 152/77 100 08/01/16 23:00 08/02/16 03:00 08/02/16 03:00 08/02/16 03:00 08/01/16 20:27 Neck: Supple Negative JVD No Bruit Chest: Clear to A&P bilaterally Cardiovascular: S1 S2 Regular Rate Rhythm Abdomen: Soft Benign Normal Bowel Sounds Ext: No edema Intact Distal Pulses LABS: CBC, BMP 08/01/16 05:20 08/01/16 05:20 Hepatic Panel Total Bilirubin 0.2 mg/dL (0.2-1.0) 07/31/16 05:50 AST 14 U/L (15-37) L 07/31/16 05:50 ALT 30 U/L (12-78) D 07/31/16 05:50 Alkaline Phosphatase 53 U/L (45-117) 07/31/16 05:50 Albumin 1.9 g/dl (3.4-5.0) L 07/31/16 05:50 INR, PTT INR 1.07 (0.82-1.09) 07/31/16 05:50 ASSESSMENT/PLAN: ASSESSMENT: 1. Upper gastro-intestinal bleed, resolved 2. Right lower lobe Pneumonia, resolving 3. Gait dysfunction and near syncope due to postural hypotension 4. CAD post PCI/stent, angina pectoris 5. Diastolic left ventricular dysfunction with class 0-I NYHA classification LV failure and pulmonary HTN 6. Aortic valve disease, moderate aortic valve stenosis 7. HTN/HCVD 8. Hypercholesterolemia 9. Hypothyroidism 10. COPD with chronic hypoxemic respiratory failure 11. History of lung carcinoma post chemotherapy 12. History of breast carcinoma post lumpectomy and chemotherapy 13. Acute on CKD due to sepsis 14. Anemia 15. Hypernatremia PLAN: 1. Monitor Hgb and maintain equal or > 8.0 2. Continue Coreg 3. Continue to hold ASA 4. Antibiotic course as per the primary team 5. Continue to hold Lisinopril and diuretics pending renal function stabilization 6. Continue hydration with caution, correction of hyponatremia Julieta Arboleda MD
[2016-08-02] MEDS: LEVOTHYROXINE NA 88 MCG TABLET (FP) PO SCH (07:05)
--- NOTE | 2016-08-02 08:22 | PN ---
Progress Note, Physician History of Present Illness: pt had an episode of hematemesis and melena with drop of hgb to 6 ---had egd with avm bleeding pt had cp at the same time cp has resolved no further vomiting - Current Medication List Current Medications: Active Medications Acetaminophen (Tylenol -) 650 mg PO Q4H PRN PRN Reason: FEVER OR PAIN Last Admin: 08/01/16 20:18 Dose: 650 mg Albuterol/Ipratropium (Duoneb -) 1 amp NEB QIDR [facility] Last Admin: 08/02/16 06:59 Dose: Not Given Budesonide/Formoterol Fumarate (Symbicort 160/4.5mcg -) 2 puff IH BID [facility] Last Admin: 08/01/16 22:00 Dose: 2 puff Carvedilol (Coreg -) 12.5 mg PO BID [facility] Last Admin: 08/01/16 21:39 Dose: 12.5 mg Cholecalciferol (Vitamin D3 -) 1,000 unit PO DAILY [facility] Last Admin: 08/01/16 09:08 Dose: 1,000 unit Citalopram Hydrobromide (Celexa -) 40 mg PO DAILY [facility] Last Admin: 08/01/16 09:07 Dose: 40 mg Fluconazole (Diflucan -) 100 mg PO DAILY [facility] Last Admin: 08/01/16 17:42 Dose: 100 mg Pantoprazole Sodium 80 mg/ (Sodium Chloride) 100 mls @ 10 mls/hr IVPB Q10H [facility] PRN Reason: 8 MG/HR Last Admin: 08/01/16 21:39 Dose: Not Given Piperacillin Sod/Tazobactam Sod (Zosyn 2.25gm Ivpb (Pre-Docked)) 50 mls @ 100 mls/hr IVPB Q8H-IV NURIS PRN Reason: Protocol Last Admin: 08/02/16 03:00 Dose: 100 mls/hr Dextrose (D5w -) 1,000 mls @ 42 mls/hr IV .[id number] [facility] Levothyroxine Sodium (Synthroid -) 88 mcg PO DAILY@0700 [facility] Last Admin: 08/02/16 07:05 Dose: Not Given Methylprednisolone Sodium Succinate (Solu-Medrol -) 40 mg IVPB DAILY [facility] Last Admin: 08/01/16 09:09 Dose: 40 mg Oxycodone HCl (Roxicodone -) 5 mg PO Q6H PRN PRN Reason: PAIN Last Admin: 08/01/16 20:18 Dose: 5 mg - Objective Vital Signs: Vital Signs Temperature 97.9 F 08/01/16 23:00 Pulse Rate 88 08/02/16 05:00 Respiratory Rate 22 08/02/16 05:00 Blood Pressure 162/89 08/02/16 05:00 O2 Sat by Pulse Oximetry (%) 100 08/01/16 20:27 Cardiovascular: Yes: Regular Rate and Rhythm Respiratory: Yes: Regular, CTA Bilaterally Gastrointestinal: Yes: Normal Bowel Sounds, Soft. No: Tenderness Labs: CBC, BMP 08/01/16 05:20 08/01/16 05:20 INR, PTT INR 1.07 (0.82-1.09) 07/31/16 05:50 Problem List - Problems (1) GI bleed Assessment/Plan: ts/p ransfusion prbc ppi drip gi consult noted egd =done--REPEAT EGD--TODAY clear liquids monitor labs icu monitoring Code(s): K92.2 - GASTROINTESTINAL HEMORRHAGE, UNSPECIFIED Qualifiers: GI bleed type/associated pathology: unspecified gastrointestinal hemorrhage type Qualified Code(s): K92.2 - Gastrointestinal hemorrhage, unspecified (2) Anemia Assessment/Plan: hgb--9 Code(s): D64.9 - ANEMIA, UNSPECIFIED Qualifiers: Anemia type: due to other cause Other causes of anemia: chronic disease , kidney (3) Acute on chronic renal failure Assessment/Plan: IVF MONITOR RENAL FUNCTION Laboratory Tests 07/29/16 07/30/16 11:08 06:30 Creatinine 3.1 H 2.8 H Code(s): N17.9 - ACUTE KIDNEY FAILURE, UNSPECIFIED N18.9 - CHRONIC KIDNEY DISEASE, UNSPECIFIED Qualifiers: Acute renal failure type: unspecified Chronic kidney disease stage: unspecified stage Qualified Code(s): N17.9 - Acute kidney failure, unspecified; N18.9 - Chronic kidney disease, unspecified (4) COPD (chronic obstructive pulmonary disease) Assessment/Plan: NEBS STEROIDS IV TAPER PULM Code(s): J44.9 - CHRONIC OBSTRUCTIVE PULMONARY DISEASE, UNSPECIFIED Qualifiers : COPD type: unspecified COPD Qualified Code(s): J44.9 - Chronic obstructive pulmonary disease, unspecified (5) Leukocytosis Assessment/Plan: STEROIDS AND PNEUMONIA Code(s): D72.829 - ELEVATED WHITE BLOOD CELL COUNT, UNSPECIFIED Qualifiers: Leukocytosis type: other Qualified Code(s): D72.828 - Other elevated white blood cell count (6) Pneumonia Assessment/Plan: IV ABX CULTURES Microbiology 07/27/16 16:30 Gram Stain - Final Sputum - Expectorated Sputum Culture - Final Pseudomonas Aeruginosa Yeast Like Organism 07/30/16 09:00 Clostridium difficile Antigen (SAE) - Final Stool Clostridium difficile Toxin Assay - Final 07/27/16 10:00 Blood Culture - Preliminary Blood - Peripheral Venous NO GROWTH OBTAINED AFTER 72 HOURS, INCUBATION TO CONTINUE FOR 2 DAYS. 07/27/16 10:00 Blood Culture - Preliminary Blood - Peripheral Venous NO GROWTH OBTAINED AFTER 72 HOURS, INCUBATION TO CONTINUE FOR 2 DAYS. CXR Code(s): J18.9 - PNEUMONIA, UNSPECIFIED ORGANISM Qualifiers: Pneumonia type: due to unspecified organism Laterality: right Lung location: lower lobe of lung Qualified Code(s): J18.1 - Lobar pneumonia, unspecified organism (7) CHF (congestive heart failure) Assessment/Plan: NO EVIDENCE OF FAILURE IVF HOLD LASIX Code(s): I50.9 - HEART FAILURE, UNSPECIFIED Qualifiers: Congestive heart failure type: diastolic Congestive heart failure chronicity: acute on chronic Qualified Code(s): I50.33 - Acute on chronic diastolic (congestive) heart failure (8) Lung cancer Code(s): C34.90 - MALIGNANT NEOPLASM OF UNSP PART OF UNSP BRONCHUS OR LUNG Qualifiers: Lung location: unspecified part of lung
[2016-08-02] MEDS: CHOLECALCIFEROL (VITAMIN D3) 1,000 UNIT TABLET (FP) PO SCH (09:01)
[2016-08-02] MEDS: CITALOPRAM HYDROBROMIDE 20 MG TABLET (FP) PO SCH (09:01)
[2016-08-02] MEDS: methylPREDNISolone NA SUCC 40 MG/1 ML VIAL IVPB SCH (09:01)
[2016-08-02] MEDS: FLUCONAZOLE 100 MG TABLET (UD) PO SCH (09:01)
[2016-08-02] MEDS: CARVEDILOL 12.5 MG TABLET (FP) PO SCH ×2 (09:01→23:20)
[2016-08-02] MEDS: oxyCODONE HCL 5 MG TABLET PO PRN ×2 (09:02→18:04)
[2016-08-02] MEDS: BUDESONIDE/FORMETEROL FUMARATE 160/4.5 mcg INHALER IH SCH ×2 (09:11→23:20)
[2016-08-02] MEDS: PANTOPRAZOLE SODIUM 80 MG in SODIUM CHLORIDE 100 ML IVPB SCH (09:11)
[2016-08-02 09:17] LABS: ALBUMIN 2.2 g/dl (3.4-5.0); BILIRUBIN,TOTAL 0.4 mg/dL (0.2-1.0); CALCIUM 8.5 mg/dL (8.5-10.1); COCKROFT - GAULT 17.85; CREATININE 1.9 mg/dL (0.55-1.02); TOT PROT 5.1 g/dl (6.4-8.2)
[2016-08-02 09:18] LABS: MCH 29.2 pg (25.7-33.7); MEAN CELL VOLUME 88.5 fl (80-96); MEAN PLT VOLUME 6.8 fl (7.5-11.1); PLATELET COUNT 338 K/MM3 (134-434); RDW 15.7 % (11.6-15.6); WHITE BLOOD COUNT 25.9 K/mm3 (4.0-10.0)
--- NOTE | 2016-08-02 10:40 | PN ---
Progress Note (short form) - Note Progress Note: overall feels better several BMS overnight, no blood noted no abdominal pain less cough Vital Signs Period Temp Pulse Resp BP Sys/Kennedy Pulse Ox Last 24 Hr 97.2 F-98 F 60-108 18-22 126-162/50-90 96-100 cor-rrr lungs decreased bs at bases abd soft,nt ext no edema CBC, BMP 08/02/16 09:00 08/02/16 08:11 Microbiology 07/27/16 10:00 Blood - Peripheral Venous Blood Culture - Final NO GROWTH AFTER 5 DAYS INCUBATION 07/27/16 10:00 Blood - Peripheral Venous Blood Culture - Final NO GROWTH AFTER 5 DAYS INCUBATION 07/27/16 16:30 Sputum - Expectorated Gram Stain - Final 07/27/16 16:30 Sputum - Expectorated Sputum Culture - Final Pseudomonas Aeruginosa Yeast Like Organism 07/30/16 09:00 Stool Clostridium difficile Antigen (SAE) - Final 07/30/16 09:00 Stool Clostridium difficile Toxin Assay - Final 07/27/16 18:15 Urine For Antigen Detection Legionella Antigen - Final 07/27/16 18:15 Urine For Antigen Detection Streptococcus pneumoniae Antigen (M - Final 07/26/16 20:18 Urine - Urine - Catheterized Urine Culture - Final NO GROWTH OBTAINED chest ct- RLL infiltrate a/p pneumonia- continue zosyn day #6 check cultures, blood, urine, sputum, urinary antigens leukocytosis improved ct scan with acute left spenoid sinusitis continue ivf for FRANK copd- home oxygen s/p UGI bleed for egd today anemia Problem List - Problems (1) Leukocytosis Code(s): D72.829 - ELEVATED WHITE BLOOD CELL COUNT, UNSPECIFIED Qualifiers: Leukocytosis type: other Qualified Code(s): D72.828 - Other elevated white blood cell count (2) Pneumonia Code(s): J18.9 - PNEUMONIA, UNSPECIFIED ORGANISM Qualifiers: Pneumonia type: due to unspecified organism Laterality: right Lung location: lower lobe of lung Qualified Code(s): J18.1 - Lobar pneumonia, unspecified organism (3) Acute kidney failure Code(s): N17.9 - ACUTE KIDNEY FAILURE, UNSPECIFIED Qualifiers: Acute renal failure type: with other specified pathological lesion Qualified Code(s): N17.8 - Other acute kidney failure (4) COPD (chronic obstructive pulmonary disease) Code(s): J44.9 - CHRONIC OBSTRUCTIVE PULMONARY DISEASE, UNSPECIFIED Qualifiers : COPD type: unspecified COPD Qualified Code(s): J44.9 - Chronic obstructive pulmonary disease, unspecified
[2016-08-02 11:23] LABS: PLATELET ESTIMATE ADEQUATE (NORMAL)
--- NOTE | 2016-08-02 12:30 | PN ---
Teaching Attending Note Name of Resident: Rachell Chu ATTENDING PHYSICIAN STATEMENT I saw and evaluated the patient. I reviewed the resident's note and discussed the case with the resident. I agree with the resident's findings and plan as documented. SUBJECTIVE: Patient seen and examined in the ICU. Awake and alert. No occult bleeding noted overnight. Some dry cough. No CP. Intake & Output 07/30/16 07/31/16 08/01/16 08/02/16 23:59 23:59 23:59 23:59 Intake Total 3085 3345 2094 874 Output Total 1 Balance 3085 3344 2094 874 Weight 95 lb 9.6 oz 101 lb 13.657 oz Last Vital Signs Temp Pulse Resp BP Pulse Ox 97.7 F 96 H 18 129/69 94 L 08/02/16 10:00 08/02/16 12:00 08/02/16 12:00 08/02/16 12:00 08/02/16 11:16 Active Medications Acetaminophen (Tylenol -) 650 mg PO Q4H PRN PRN Reason: FEVER OR PAIN Last Admin: 08/01/16 20:18 Dose: 650 mg Albuterol/Ipratropium (Duoneb -) 1 amp NEB QIDR [facility] Last Admin: 08/02/16 11:38 Dose: Not Given Budesonide/Formoterol Fumarate (Symbicort 160/4.5mcg -) 2 puff IH BID [facility] Last Admin: 08/02/16 09:11 Dose: 2 puff Carvedilol (Coreg -) 12.5 mg PO BID [facility] Last Admin: 08/02/16 09:01 Dose: 12.5 mg Cholecalciferol (Vitamin D3 -) 1,000 unit PO DAILY [facility] Last Admin: 08/02/16 09:01 Dose: 1,000 unit Citalopram Hydrobromide (Celexa -) 40 mg PO DAILY [facility] Last Admin: 08/02/16 09:01 Dose: 40 mg Fluconazole (Diflucan -) 100 mg PO DAILY [facility] Last Admin: 08/02/16 09:01 Dose: 100 mg Pantoprazole Sodium 80 mg/ (Sodium Chloride) 100 mls @ 10 mls/hr IVPB Q10H NURIS PRN Reason: 8 MG/HR Last Admin: 08/02/16 09:11 Dose: 10 mls/hr Piperacillin Sod/Tazobactam Sod (Zosyn 2.25gm Ivpb (Pre-Docked)) 50 mls @ 100 mls/hr IVPB Q8H-IV NURIS PRN Reason: Protocol Last Admin: 08/02/16 09:01 Dose: 100 mls/hr Dextrose (D5w -) 1,000 mls @ 42 mls/hr IV .[id number] [facility] Levothyroxine Sodium (Synthroid -) 88 mcg PO DAILY@0700 [facility] Last Admin: 08/02/16 07:05 Dose: Not Given Methylprednisolone Sodium Succinate (Solu-Medrol -) 40 mg IVPB DAILY [facility] Last Admin: 08/02/16 09:01 Dose: 40 mg Oxycodone HCl (Roxicodone -) 5 mg PO Q6H PRN PRN Reason: PAIN Last Admin: 08/02/16 09:02 Dose: 5 mg General: weak appearing, NAD Cardiovascular: Yes: Murmur, S1, S2 Respiratory: Yes: Diminished at the bases , Scattered bilateral Rhonchi / Wheezes Gastrointestinal: Yes: Normal Bowel Sounds, Soft Edema: No Labs: Laboratory Results - last 24 hr 08/02/16 08/02/16 08/02/16 07:28 08:11 09:00 WBC 25.9 H D RBC 2.72 L Hgb 7.9 L D Hct 24.1 L D MCV 88.5 MCHC 33.0 RDW 15.7 H Plt Count 338 MPV 6.8 L Neutrophils % 90.0 H Lymphocytes % 7.0 L D Monocytes % 3.0 L Differential Comment Manual diff done Platelet Estimate Adequate Sodium 144 Potassium 4.0 Chloride 112 H Carbon Dioxide 21 Anion Gap 11 BUN 84 H Creatinine 1.9 H Creat Clearance w eGFR 25.70 POC Glucometer 151.64034 Random Glucose 89 D Calcium 8.5 Total Bilirubin 0.4 D AST 19 D ALT 27 Alkaline Phosphatase 43 L Total Protein 5.1 L Albumin 2.2 L Problem List - Problems (1) Acute on chronic renal failure Assessment/Plan: Code(s): N17.9 - ACUTE KIDNEY FAILURE, UNSPECIFIED N18.9 - CHRONIC KIDNEY DISEASE, UNSPECIFIED Qualifiers: Acute renal failure type: unspecified Chronic kidney disease stage: unspecified stage Qualified Code(s): N17.9 - Acute kidney failure, unspecified; N18.9 - Chronic kidney disease, unspecified (2) COPD (chronic obstructive pulmonary disease) Assessment/Plan: Code(s): J44.9 - CHRONIC OBSTRUCTIVE PULMONARY DISEASE, UNSPECIFIED Qualifiers : COPD type: unspecified COPD Qualified Code(s): J44.9 - Chronic obstructive pulmonary disease, unspecified (3) Leukocytosis Assessment/Plan: Code(s): D72.829 - ELEVATED WHITE BLOOD CELL COUNT, UNSPECIFIED Qualifiers: Leukocytosis type: other Qualified Code(s): D72.828 - Other elevated white blood cell count (4) Pneumonia Assessment/Plan: Code(s): J18.9 - PNEUMONIA, UNSPECIFIED ORGANISM Qualifiers: Pneumonia type: due to unspecified organism Laterality: right Lung location: lower lobe of lung Qualified Code(s): J18.1 - Lobar pneumonia, unspecified organism (5) CHF (congestive heart failure) Assessment/Plan: Code(s): I50.9 - HEART FAILURE, UNSPECIFIED (6) Lung cancer Code(s): C34.90 - MALIGNANT NEOPLASM OF UNSP PART OF UNSP BRONCHUS OR LUNG Qualifiers: Lung location: unspecified part of lung PLAN: ABX Medrol daily BD TX O2 as needed Normal transfusion thresholds VTE prophylaxis For endoscopic evaluation Dr Henriquez critical care time spent in reviewing chart, evaluating patient and formulating plan 35 min
--- NOTE | 2016-08-02 13:25 | PN ---
Physical Exam: SUBJECTIVE: Patient seen and examined. She is feeling good. She denies SOB, chest pain, palpitations. No overnight events. She was NPO after midnight for EGD today. OBJECTIVE: Vital Signs Period Temp Pulse Resp BP Sys/Kennedy Pulse Ox Last 24 Hr 97.2 F-98 F 60-102 18-22 126-162/50-90 94-100 GENERAL: The patient is awake, alert, and fully oriented, in no acute distress. HEAD: Normal with no signs of trauma. EYES: extraocular movements intact, sclera anicteric, conjunctiva clear. ENT: oropharynx clear without exudates, moist mucous membranes. NECK: Trachea midline, full range of motion, supple. LUNGS: Breath sounds equal, crackles and rhonchi bilaterally, no wheezes, no crackles, no accessory muscle use. HEART: Regular rate and rhythm, S1, S2 without murmur, rub or gallop. ABDOMEN: Soft, nontender, nondistended, normoactive bowel sounds, no guarding, no rebound, no hepatosplenomegaly, no masses. EXTREMITIES: no edema. NEUROLOGICAL: No facial asymmetry. Normal speech, gait not observed. PSYCH: Normal mood, normal affect. SKIN: Warm, dry, normal turgor. Laboratory Results - last 24 hr 08/02/16 08/02/16 08/02/16 07:28 08:11 09:00 WBC 25.9 H D RBC 2.72 L Hgb 7.9 L D Hct 24.1 L D MCV 88.5 MCHC 33.0 RDW 15.7 H Plt Count 338 MPV 6.8 L Neutrophils % 90.0 H Lymphocytes % 7.0 L D Monocytes % 3.0 L Differential Comment Manual diff done Platelet Estimate Adequate Sodium 144 Potassium 4.0 Chloride 112 H Carbon Dioxide 21 Anion Gap 11 BUN 84 H Creatinine 1.9 H Creat Clearance w eGFR 25.70 POC Glucometer 151.04539 Random Glucose 89 D Calcium 8.5 Total Bilirubin 0.4 D AST 19 D ALT 27 Alkaline Phosphatase 43 L Total Protein 5.1 L Albumin 2.2 L Active Medications Generic Name Dose Route Start Last Admin Trade Name Freq PRN Reason Stop Dose Admin Acetaminophen 650 mg 07/31/16 09:42 08/01/16 20:18 Tylenol - PO 650 mg Q4H PRN Administration FEVER OR PAIN Albuterol/Ipratropium 1 amp 07/31/16 12:00 08/02/16 11:38 Duoneb - NEB Not Given QIDR NURIS Budesonide/Formoterol Fumarate 2 puff 07/31/16 10:00 08/02/16 09:11 Symbicort 160/4.5mcg - IH 2 puff BID NURIS Administration Carvedilol 12.5 mg 07/31/16 10:00 08/02/16 09:01 Coreg - PO 12.5 mg BID NURIS Administration Cholecalciferol 1,000 unit 07/31/16 10:00 08/02/16 09:01 Vitamin D3 - PO 1,000 unit DAILY NURIS Administration Citalopram Hydrobromide 40 mg 07/31/16 10:00 08/02/16 09:01 Celexa - PO 40 mg DAILY NURIS Administration Fluconazole 100 mg 08/01/16 16:15 08/02/16 09:01 Diflucan - PO 100 mg DAILY NURIS Administration Pantoprazole Sodium 80 mg/ 100 mls @ 10 mls/hr 07/31/16 15:30 08/02/16 09:11 Sodium Chloride IVPB 10 mls/hr Q10H NURIS Administration 8 MG/HR Piperacillin Sod/Tazobactam Sod 50 mls @ 100 mls/hr 07/31/16 10:00 08/02/16 09: 01 Zosyn 2.25gm Ivpb (Pre-Docked) IVPB 100 mls/hr Q8H-IV NURIS Administration Protocol Dextrose 1,000 mls @ 42 mls/hr 08/01/16 14:30 D5w - IV .[id number] [facility] Levothyroxine Sodium 88 mcg 08/01/16 07:00 08/02/16 07:05 Synthroid - PO Not Given DAILY@0700 NURIS Methylprednisolone Sodium Succinate 40 mg 07/31/16 10:00 08/02/16 09:01 Solu-Medrol - IVPB 40 mg DAILY NURIS Administration Oxycodone HCl 5 mg 08/01/16 16:21 08/02/16 09:02 Roxicodone - PO 5 mg Q6H PRN Administration PAIN ASSESSMENT/PLAN: Patient is a 76 year old female with history of CAD S/P PCI/stent, angina pectoris, diastolic LV failure, moderate , hypercholesterolemia, pulmonary hypertension, HTN/HCVD, lung CA post chemotherapy, breast CA post chemotherapy, COPD, CKD and diverticular disease. She presented complaining of dizziness, anorexia, unsteady gait, weakness and multiple falls without true syncope. She was admitted for RLL pneumonia and later was found to have upper GI bleeding. RLL Pneumonia with leukocytosis -today WBC is 25.9, increased -continue Zosyn, -ID consulted -f/u CXR -Tylenol for Fever -Solu-medrol 40 mg qd upper GI bleeding: -s/p endoscopy 06/02/16, another EGD scheduled today -NPO after midnight Microcytic anemia: -Hgb today is 7.9 -f/u CBC tomorrow FRANK -Cr 1.9, improved -avoid nephrotoxic substances -cont D5W -f/u Nephrology consultation near syncope due to postural hypotension -fall risk precautions -cont IVF-D5W COPD -cont Symbicort and Solu-medrol, Duoneb CAD s/p PCI/stent, angina pectoris HTN -cont Coreg Hypercholesterolemia Hypothyroidism -cont Synthroid 88 mcg History of lung CA post chemotherapy History of breast CA post lumpectomy, chemotherapy F/E/N: D5W/No abnormalities/Clear liquid for now and NPO after midnight DVD PPX: scds Disposition: can transfer to telemetry Problem List - Problems (1) Acute on chronic renal failure Code(s): N17.9 - ACUTE KIDNEY FAILURE, UNSPECIFIED N18.9 - CHRONIC KIDNEY DISEASE, UNSPECIFIED Qualifiers: Acute renal failure type: unspecified Chronic kidney disease stage: unspecified stage Qualified Code(s): N17.9 - Acute kidney failure, unspecified; N18.9 - Chronic kidney disease, unspecified (2) COPD (chronic obstructive pulmonary disease) Code(s): J44.9 - CHRONIC OBSTRUCTIVE PULMONARY DISEASE, UNSPECIFIED Qualifiers : COPD type: unspecified COPD Qualified Code(s): J44.9 - Chronic obstructive pulmonary disease, unspecified (3) Hyperkalemia Code(s): E87.5 - HYPERKALEMIA (4) Leukocytosis Code(s): D72.829 - ELEVATED WHITE BLOOD CELL COUNT, UNSPECIFIED Qualifiers: Leukocytosis type: other Qualified Code(s): D72.828 - Other elevated white blood cell count (5) Pneumonia Code(s): J18.9 - PNEUMONIA, UNSPECIFIED ORGANISM Qualifiers: Pneumonia type: due to unspecified organism Laterality: right Lung location: lower lobe of lung Qualified Code(s): J18.1 - Lobar pneumonia, unspecified organism (6) Acute kidney failure Code(s): N17.9 - ACUTE KIDNEY FAILURE, UNSPECIFIED Qualifiers: Acute renal failure type: with other specified pathological lesion Qualified Code(s): N17.8 - Other acute kidney failure (7) Aortic stenosis Code(s): I35.0 - NONRHEUMATIC AORTIC (VALVE) STENOSIS Qualifiers: Cardiac valve disease etiology: nonrheumatic Qualified Code(s): I35.0 - Nonrheumatic aortic (valve) stenosis (8) Breast CA Code(s): C50.919 - MALIGNANT NEOPLASM OF UNSP SITE OF UNSPECIFIED FEMALE BREAST (9) CAD (coronary artery disease) Code(s): I25.10 - ATHSCL HEART DISEASE OF [place] CORONARY ARTERY W/O ANG PCTRS Qualifiers: Coronary Disease-Associated Artery/Lesion type: [place] artery [place] vs. transplanted heart: [place] heart Associated angina: without angina Qualified Code(s): I25.10 - Atherosclerotic heart disease of [place] coronary artery without angina pectoris (10) CHF (congestive heart failure) Code(s): I50.9 - HEART FAILURE, UNSPECIFIED Qualifiers: Congestive heart failure type: diastolic Congestive heart failure chronicity: acute on chronic Qualified Code(s): I50.33 - Acute on chronic diastolic (congestive) heart failure (11) HTN (hypertension) Code(s): I10 - ESSENTIAL (PRIMARY) HYPERTENSION Qualifiers: Hypertension type: essential hypertension Qualified Code(s): I10 - Essential (primary) hypertension (12) Hypothyroid Code(s): E03.9 - HYPOTHYROIDISM, UNSPECIFIED Qualifiers: Hypothyroidism type: unspecified Qualified Code(s): E03.9 - Hypothyroidism, unspecified Visit type - Emergency Visit Emergency Visit: Yes ED Registration Date: 07/27/16 Care time: The patient presented to the Emergency Department on the above date and was hospitalized for further evaluation of their emergent condition. - New Patient This patient is new to me today: No - Critical Care Critical Care patient: Yes Total Critical Care Time (in minutes): 35 Critical Care Statement: The care of this patient involved high complexity decision making to prevent further life threatening deterioration of the patient 's condition and/or to evalute & treat vital organ system(s) failure or risk of failure.
[2016-08-02] MEDS ORDERED: DEXTROSE 5%-WATER - 1,000 ML IV SCH (13:44)
--- NOTE | 2016-08-02 14:42 | PN ---
Progress Note (short form) - Note Progress Note: EGD complete. Report left in procedural section of physical chart and to be scanned into [employer] No overt upper GI bleeding Advance diet protonix 40mg once daily for 8 weeks avoid NSAIDs
--- NOTE | 2016-08-02 14:55 | PN ---
Progress Note, Physician History of Present Illness: Pt seen and examined at bedside. She feels better today. She denies blood in the stool. She is scheduled for EGD today. - Current Medication List Current Medications: Active Medications Acetaminophen (Tylenol -) 650 mg PO Q4H PRN PRN Reason: FEVER OR PAIN Albuterol/Ipratropium (Duoneb -) 1 amp NEB QIDR NUR[facility] Budesonide/Formoterol Fumarate (Symbicort 160/4.5mcg -) 2 puff IH BID NURIS Carvedilol (Coreg -) 12.5 mg PO BID NURIS Cholecalciferol (Vitamin D3 -) 1,000 unit PO DAILY NURIS Citalopram Hydrobromide (Celexa -) 40 mg PO DAILY N[facility] Fluconazole (Diflucan -) 100 mg PO DAILY NURIS Dextrose (D5w -) 1,000 mls @ 42 mls/hr IV Q23H NURIS Pantoprazole Sodium 80 mg/ (Sodium Chloride) 100 mls @ 10 mls/hr IVPB Q10H NURIS PRN Reason: 8 MG/HR Piperacillin Sod/Tazobactam Sod (Zosyn 2.25gm Ivpb (Pre-Docked)) 50 mls @ 100 mls/hr IVPB Q8H-IV NURIS PRN Reason: Protocol Levothyroxine Sodium (Synthroid -) 88 mcg PO DAILY@0700 NURIS Methylprednisolone Sodium Succinate (Solu-Medrol -) 40 mg IVPB DAILY NURIS Oxycodone HCl (Roxicodone -) 5 mg PO Q6H PRN PRN Reason: PAIN - Objective Vital Signs: Vital Signs Temperature 97.7 F 08/02/16 10:00 Pulse Rate 92 H 08/02/16 14:00 Respiratory Rate 18 08/02/16 14:00 Blood Pressure 128/72 08/02/16 14:00 O2 Sat by Pulse Oximetry (%) 94 L 08/02/16 11:16 Constitutional: Yes: Calm Eyes: Yes: Conjunctiva Clear HENT: Yes: Atraumatic Neck: Yes: Supple Cardiovascular: Yes: S1, S2 Respiratory: Yes: On Nasal O2 Gastrointestinal: Yes: Soft Genitourinary: Yes: WNL Musculoskeletal: Yes: WNL Extremities: Yes: WNL Edema: No Neurological: Yes: Oriented Psychiatric: Yes: Oriented Labs: CBC, BMP 08/02/16 09:00 08/02/16 08:11 INR, PTT INR 1.07 (0.82-1.09) 07/31/16 05:50 - ....Imaging Chest X-ray: Report Reviewed Problem List - Problems (1) Acute on chronic renal failure Code(s): N17.9 - ACUTE KIDNEY FAILURE, UNSPECIFIED N18.9 - CHRONIC KIDNEY DISEASE, UNSPECIFIED Qualifiers: Acute renal failure type: unspecified Chronic kidney disease stage: unspecified stage Qualified Code(s): N17.9 - Acute kidney failure, unspecified; N18.9 - Chronic kidney disease, unspecified (2) COPD (chronic obstructive pulmonary disease) Code(s): J44.9 - CHRONIC OBSTRUCTIVE PULMONARY DISEASE, UNSPECIFIED Qualifiers : COPD type: unspecified COPD Qualified Code(s): J44.9 - Chronic obstructive pulmonary disease, unspecified (3) Chronic hypoxemic respiratory failure Code(s): J96.11 - CHRONIC RESPIRATORY FAILURE WITH HYPOXIA (4) Hyperkalemia Code(s): E87.5 - HYPERKALEMIA (5) Hypoxia Code(s): R09.02 - HYPOXEMIA (6) Leukocytosis Code(s): D72.829 - ELEVATED WHITE BLOOD CELL COUNT, UNSPECIFIED Qualifiers: Leukocytosis type: other Qualified Code(s): D72.828 - Other elevated white blood cell count (7) Pneumonia Code(s): J18.9 - PNEUMONIA, UNSPECIFIED ORGANISM Qualifiers: Pneumonia type: due to unspecified organism Laterality: right Lung location: lower lobe of lung Qualified Code(s): J18.1 - Lobar pneumonia, unspecified organism (8) Breast CA Code(s): C50.919 - MALIGNANT NEOPLASM OF UNSP SITE OF UNSPECIFIED FEMALE BREAST (9) CAD (coronary artery disease) Code(s): I25.10 - ATHSCL HEART DISEASE OF [place] CORONARY ARTERY W/O ANG PCTRS Qualifiers: Coronary Disease-Associated Artery/Lesion type: [place] artery [place] vs. transplanted heart: [place] heart Associated angina: without angina Qualified Code(s): I25.10 - Atherosclerotic heart disease of [place] coronary artery without angina pectoris Assessment/Plan Current Medications Generic Name Dose Route Start Last Admin Trade Name Freq PRN Reason Stop Dose Admin Acetaminophen 650 mg 08/02/16 13:44 Tylenol - PO Q4H PRN FEVER OR PAIN Albuterol/Ipratropium 1 amp 08/02/16 18:00 Duoneb - NEB QIDR [facility] Budesonide/Formoterol Fumarate 2 puff 08/02/16 22:00 Symbicort 160/4.5mcg - IH BID [facility] Carvedilol 12.5 mg 08/02/16 22:00 Coreg - PO BID [facility] Cholecalciferol 1,000 unit 08/03/16 10:00 Vitamin D3 - PO DAILY [facility] Citalopram Hydrobromide 40 mg 08/03/16 10:00 Celexa - PO DAILY NURIS Fluconazole 100 mg 08/03/16 10:00 Diflucan - PO DAILY [facility] Dextrose 1,000 mls @ 42 mls/hr 08/02/16 13:44 D5w - IV Q23H [facility] Pantoprazole Sodium 80 mg/ 100 mls @ 10 mls/hr 08/02/16 17:30 Sodium Chloride IVPB Q10H NURIS 8 MG/HR Piperacillin Sod/Tazobactam Sod 50 mls @ 100 mls/hr 08/02/16 18:00 Zosyn 2.25gm Ivpb (Pre-Docked) IVPB Q8H-IV [facility] Protocol Levothyroxine Sodium 88 mcg 08/03/16 07:00 Synthroid - PO DAILY@0700 [facility] Methylprednisolone Sodium Succinate 40 mg 08/03/16 10:00 Solu-Medrol - IVPB DAILY [facility] Oxycodone HCl 5 mg 08/02/16 13:44 Roxicodone - PO Q6H PRN PAIN Impression 1. CKD 2. FRANK 3. hyperkalemia 4. CAD with cardiac stents 5. HTN 6. Hyperlipidemia 7. Hypothyroidism 8. H/O Breast 9. Lung Ca 10. Anemia 11. sepsis 12. PNA 13. hypernatremia Plan - cont with d5w - sodium is improved - renal function is improving - repeat labs in am - monitor Hg - monitor pulse ox - will follow pt Dr Schilling
--- NOTE | 2016-08-02 17:02 | PN ---
Progress Note (short form) - Note Progress Note: Patient seen and examined S/P EGD without active bleeding site described (discussed with Dr. Mendoza) Fall in Hct from 30% to 24% Last Vital Signs Temp Pulse Resp BP Pulse Ox 98 F 70 18 117/74 94 L 08/02/16 15:06 08/02/16 15:06 08/02/16 15:06 08/02/16 15:06 08/02/16 11:16 HEENT: GIOV[place], EOM Intact Oropharynx: No thrush, No mucositis, edentulous Cor: RSR, No murmurs, No gallops Lungsdiminished breath sounds bilaterally Abd: Soft, Normal bowel sounds, No organomegaly Ext:No significant edema Skin: No rashes, Integument intact CBC, BMP 08/02/16 09:00 08/02/16 08:11 INR, PTT INR 1.07 (0.82-1.09) 07/31/16 05:50 Current Medications Generic Name Dose Route Start Last Admin Trade Name Freq PRN Reason Stop Dose Admin Acetaminophen 650 mg 08/02/16 13:44 Tylenol - PO Q4H PRN FEVER OR PAIN Albuterol/Ipratropium 1 amp 08/02/16 18:00 Duoneb - NEB QIDR [facility] Budesonide/Formoterol Fumarate 2 puff 08/02/16 22:00 Symbicort 160/4.5mcg - IH BID NUR[facility] Carvedilol 12.5 mg 08/02/16 22:00 Coreg - PO BID N[facility] Cholecalciferol 1,000 unit 08/03/16 10:00 Vitamin D3 - PO DAILY NUR[facility] Citalopram Hydrobromide 40 mg 08/03/16 10:00 Celexa - PO DAILY NURIS Fluconazole 100 mg 08/03/16 10:00 Diflucan - PO DAILY NURIS Dextrose 1,000 mls @ 42 mls/hr 08/02/16 13:44 D5w - IV Q23H NURIS Piperacillin Sod/Tazobactam Sod 50 mls @ 100 mls/hr 08/02/16 18:00 Zosyn 2.25gm Ivpb (Pre-Docked) IVPB Q8H-IV [facility]URIS Protocol Levothyroxine Sodium 88 mcg 08/03/16 07:00 Synthroid - PO DAILY@0700 NURIS Methylprednisolone Sodium Succinate 40 mg 08/03/16 10:00 Solu-Medrol - IVPB DAILY NURIS Oxycodone HCl 5 mg 08/02/16 13:44 Roxicodone - PO Q6H PRN PAIN Pantoprazole Sodium 40 mg 08/03/16 10:00 Protonix - PO DAILY [facility] Impression: Pneumonia- leucocytosis which has increased S/P treatment for breast ca Lung ca vs metastatic breast ca Anemia GI bleeding S/P chemotherapy Renal Insufficiency No obvious site for bleeding source to date Screen for hemolysis on Gem[facility] Treatment per critical care team.
[2016-08-02] MEDS ORDERED: PANTOPRAZOLE SODIUM 80 MG in SODIUM CHLORIDE 100 ML IVPB SCH (17:30)
[2016-08-02] MEDS ORDERED: NYSTATIN 500,000 UNITS/5 ML SUSPENSION PO SCH (18:00)
[2016-08-03] MEDS: ALBUTEROL SO4 2.5/IPRATROPIUM 0.5 INH SOL 3 ML VIAL.NEB. NEB SCH ×4 (00:05→17:02)
[2016-08-03] MEDS: PIPERACILLIN/TAZOB 2.25 GM 50 ML IVPB SCH ×3 (01:05→18:18)
[2016-08-03] MEDS: LEVOTHYROXINE NA 88 MCG TABLET (FP) PO SCH (06:01)
[2016-08-03 07:30] LABS: MCHC 32.6 g/dl (32.0-36.0); MEAN CELL VOLUME 88.9 fl (80-96); MEAN PLT VOLUME 7.2 fl (7.5-11.1); PLATELET COUNT 299 K/MM3 (134-434); RDW 16.2 % (11.6-15.6); WHITE BLOOD COUNT 19.7 K/mm3 (4.0-10.0)
[2016-08-03 07:33] LABS: ALBUMIN 1.9 g/dl (3.4-5.0); CALCIUM 7.9 mg/dL (8.5-10.1)
[2016-08-03 07:37] LABS: BILIRUBIN,TOTAL 0.5 mg/dL (0.2-1.0); COCKROFT - GAULT 19.3885; CREATININE 1.7 mg/dL (0.55-1.02); TOT PROT 4.5 g/dl (6.4-8.2)
[2016-08-03 09:04] LABS: METAMYELOCYTE 3 % (0-2); PLATELET ESTIMATE ADEQUATE (NORMAL)
[2016-08-03] MEDS ORDERED: PT OWN MED DRAWER 7, Y5N ONE (09:47)
--- NOTE | 2016-08-03 09:47 | PN ---
Progress Note, Physician History of Present Illness: No further hematemesis, but with continued melena now Hgb 6.8 post transfusion, repeat EGD yesterday unremarkable for bleeding source, denies chest pain, dyspnea, abd pain. - Current Medication List Current Medications: Active Medications Acetaminophen (Tylenol -) 650 mg PO Q4H PRN PRN Reason: FEVER OR PAIN Albuterol/Ipratropium (Duoneb -) 1 amp NEB QIDR [facility] Last Admin: 08/03/16 06:30 Dose: 1 amp Budesonide/Formoterol Fumarate (Symbicort 160/4.5mcg -) 2 puff IH BID [facility] Last Admin: 08/02/16 23:20 Dose: 2 puff Carvedilol (Coreg -) 12.5 mg PO BID [facility] Last Admin: 08/02/16 23:20 Dose: 12.5 mg Cholecalciferol (Vitamin D3 -) 1,000 unit PO DAILY [facility] Citalopram Hydrobromide (Celexa -) 40 mg PO DAILY [facility] Fluconazole (Diflucan -) 100 mg PO DAILY [facility] Dextrose (D5w -) 1,000 mls @ 42 mls/hr IV Q23H [facility] Last Admin: 08/02/16 18:05 Dose: 42 mls/hr Piperacillin Sod/Tazobactam Sod (Zosyn 2.25gm Ivpb (Pre-Docked)) 50 mls @ 100 mls/hr IVPB Q8H-IV NURIS PRN Reason: Protocol Last Admin: 08/03/16 01:05 Dose: 100 mls/hr Levothyroxine Sodium (Synthroid -) 88 mcg PO DAILY@0700 [facility] Last Admin: 08/03/16 06:01 Dose: 88 mcg Methylprednisolone Sodium Succinate (Solu-Medrol -) 40 mg IVPB DAILY [facility] Oxycodone HCl (Roxicodone -) 5 mg PO Q6H PRN PRN Reason: PAIN Last Admin: 08/03/16 00:00 Dose: 5 mg Pantoprazole Sodium (Protonix -) 40 mg PO DAILY [facility] - Objective Vital Signs: Vital Signs Temperature 98.7 F 08/03/16 08:13 Pulse Rate 64 08/03/16 08:13 Respiratory Rate 20 08/03/16 08:13 Blood Pressure 155/68 08/03/16 08:13 O2 Sat by Pulse Oximetry (%) 96 08/03/16 08:13 Constitutional: Yes: No Distress, Calm, Thin Neck: Yes: Supple Cardiovascular: Yes: Regular Rate and Rhythm Respiratory: Yes: Regular, CTA Bilaterally Gastrointestinal: Yes: Soft, Hypoactive Bowel Sounds Edema: No Labs: CBC, BMP 08/03/16 05:35 08/03/16 05:35 INR, PTT INR 1.07 (0.82-1.09) 07/31/16 05:50 Problem List - Problems (1) Acute on chronic renal failure Code(s): N17.9 - ACUTE KIDNEY FAILURE, UNSPECIFIED N18.9 - CHRONIC KIDNEY DISEASE, UNSPECIFIED Qualifiers: Acute renal failure type: unspecified Chronic kidney disease stage: unspecified stage Qualified Code(s): N17.9 - Acute kidney failure, unspecified; N18.9 - Chronic kidney disease, unspecified (2) COPD (chronic obstructive pulmonary disease) Code(s): J44.9 - CHRONIC OBSTRUCTIVE PULMONARY DISEASE, UNSPECIFIED Qualifiers : COPD type: unspecified COPD Qualified Code(s): J44.9 - Chronic obstructive pulmonary disease, unspecified (3) Chronic hypoxemic respiratory failure Code(s): J96.11 - CHRONIC RESPIRATORY FAILURE WITH HYPOXIA (4) Leukocytosis Code(s): D72.829 - ELEVATED WHITE BLOOD CELL COUNT, UNSPECIFIED Qualifiers: Leukocytosis type: other Qualified Code(s): D72.828 - Other elevated white blood cell count (5) Pneumonia Code(s): J18.9 - PNEUMONIA, UNSPECIFIED ORGANISM Qualifiers: Pneumonia type: due to unspecified organism Laterality: right Lung location: lower lobe of lung Qualified Code(s): J18.1 - Lobar pneumonia, unspecified organism (6) Status post fall Code(s): Z91.89 - OTH PERSONAL RISK FACTORS, NOT ELSEWHERE CLASSIFIED (7) Weakness Code(s): R53.1 - WEAKNESS (8) ASHD (arteriosclerotic heart disease) Code(s): I25.10 - ATHSCL HEART DISEASE OF [place] CORONARY ARTERY W/O ANG PCTRS (9) Anemia Code(s): D64.9 - ANEMIA, UNSPECIFIED Qualifiers: Anemia type: due to other cause Other causes of anemia: chronic disease , kidney (10) Aortic stenosis Code(s): I35.0 - NONRHEUMATIC AORTIC (VALVE) STENOSIS Qualifiers: Cardiac valve disease etiology: nonrheumatic Qualified Code(s): I35.0 - Nonrheumatic aortic (valve) stenosis (11) CAD (coronary artery disease) Code(s): I25.10 - ATHSCL HEART DISEASE OF [place] CORONARY ARTERY W/O ANG PCTRS Qualifiers: Coronary Disease-Associated Artery/Lesion type: [place] artery [place] vs. transplanted heart: [place] heart Associated angina: without angina Qualified Code(s): I25.10 - Atherosclerotic heart disease of [place] coronary artery without angina pectoris (12) Dizziness Code(s): R42 - DIZZINESS AND GIDDINESS (13) HTN (hypertension) Code(s): I10 - ESSENTIAL (PRIMARY) HYPERTENSION Qualifiers: Hypertension type: essential hypertension Qualified Code(s): I10 - Essential (primary) hypertension (14) Hypothyroid Code(s): E03.9 - HYPOTHYROIDISM, UNSPECIFIED Qualifiers: Hypothyroidism type: unspecified Qualified Code(s): E03.9 - Hypothyroidism, unspecified (15) Orthostatic dizziness Code(s): R42 - DIZZINESS AND GIDDINESS (16) S/P coronary artery stent placement Code(s): Z95.5 - PRESENCE OF CORONARY ANGIOPLASTY IMPLANT AND GRAFT (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 Upper gastro-intestinal bleed referable to duodenal AVMs post cautery with possible recurrence 2. Right lower lobe Pneumonia, resolving 3. Gait dysfunction and near syncope due to postural hypotension 4. CAD post PCI/stent, angina pectoris 5. Diastolic left ventricular dysfunction with class 0-I NYHA classification LV failure and pulmonary HTN 6. Aortic valve disease, moderate aortic valve stenosis 7. HTN/HCVD 8. Hypercholesterolemia 9. Hypothyroidism 10. COPD with chronic hypoxemic respiratory failure 11. History of lung carcinoma post chemotherapy 12. History of breast carcinoma post lumpectomy and chemotherapy 13. Acute on CKD due to sepsis 14. Anemia PLAN: 1. Monitor Hgb and transfuse to maintain equal or > 8.0 2. Continue Coreg 12.5 bid 3. Continue to hold ASA, recall GI for possible need for repeat EGD 4. Complete antibiotic course as per the primary team 5. Continue to hold Lisinopril and diuretics pending renal function stabilization
[2016-08-03] MEDS: oxyCODONE HCL 5 MG TABLET PO PRN ×4 (09:51→21:07)
[2016-08-03] MEDS: FLUCONAZOLE 100 MG TABLET (UD) PO SCH (09:52)
[2016-08-03] MEDS: CARVEDILOL 12.5 MG TABLET (FP) PO SCH ×2 (09:52→21:08)
[2016-08-03] MEDS: CITALOPRAM HYDROBROMIDE 20 MG TABLET (FP) PO SCH (09:52)
[2016-08-03] MEDS: CHOLECALCIFEROL (VITAMIN D3) 1,000 UNIT TABLET (FP) PO SCH (09:52)
[2016-08-03] MEDS: BUDESONIDE/FORMETEROL FUMARATE 160/4.5 mcg INHALER IH SCH (09:53)
[2016-08-03] MEDS: methylPREDNISolone NA SUCC 40 MG/1 ML VIAL IVPB SCH (09:53)
[2016-08-03] MEDS ORDERED: PANTOPRAZOLE 40 MG TABLET (FP) PO SCH (10:00)
--- NOTE | 2016-08-03 11:15 | PN ---
Progress Note (short form) - Note Progress Note: overall feels better no abdominal pain one black bm last night, no bm today Vital Signs Period Temp Pulse Resp BP Sys/Kennedy Pulse Ox Last 24 Hr 98 F-98.7 F 67-104 18-20 100-156/48-85 94-98 cor-rrr lungs-decreased bs at bases abd soft,nt ext no edema CBC, BMP 08/03/16 05:35 08/03/16 05:[address]- RLL infiltrate Microbiology 07/27/16 10:00 Blood - Peripheral Venous Blood Culture - Final NO GROWTH AFTER 5 DAYS INCUBATION 07/27/16 10:00 Blood - Peripheral Venous Blood Culture - Final NO GROWTH AFTER 5 DAYS INCUBATION 07/27/16 16:30 Sputum - Expectorated Gram Stain - Final 07/27/16 16:30 Sputum - Expectorated Sputum Culture - Final Pseudomonas Aeruginosa Yeast Like Organism 07/30/16 09:00 Stool Clostridium difficile Antigen (SAE) - Final 07/30/16 09:00 Stool Clostridium difficile Toxin Assay - Final 07/27/16 18:15 Urine For Antigen Detection Legionella Antigen - Final 07/27/16 18:15 Urine For Antigen Detection Streptococcus pneumoniae Antigen (M - Final 07/26/16 20:18 Urine - Urine - Catheterized Urine Culture - Final NO GROWTH OBTAINED a/p pneumonia- pseudomonas continue zosyn day #7 leukocytosis improved sinusitis FRANK- improved copd- home oxygen anemia- w/u in progress Problem List - Problems (1) Leukocytosis Code(s): D72.829 - ELEVATED WHITE BLOOD CELL COUNT, UNSPECIFIED Qualifiers: Leukocytosis type: other Qualified Code(s): D72.828 - Other elevated white blood cell count (2) Pneumonia Code(s): J18.9 - PNEUMONIA, UNSPECIFIED ORGANISM Qualifiers: Pneumonia type: due to unspecified organism Laterality: right Lung location: lower lobe of lung Qualified Code(s): J18.1 - Lobar pneumonia, unspecified organism (3) Acute kidney failure Code(s): N17.9 - ACUTE KIDNEY FAILURE, UNSPECIFIED Qualifiers: Acute renal failure type: with other specified pathological lesion Qualified Code(s): N17.8 - Other acute kidney failure (4) COPD (chronic obstructive pulmonary disease) Code(s): J44.9 - CHRONIC OBSTRUCTIVE PULMONARY DISEASE, UNSPECIFIED Qualifiers : COPD type: unspecified COPD Qualified Code(s): J44.9 - Chronic obstructive pulmonary disease, unspecified
--- NOTE | 2016-08-03 11:28 | PN ---
Progress Note, Physician History of Present Illness: pulmonary alert,nad,-sob,-cp. pt s/p EGD findings noted. - Current Medication List Current Medications: Active Medications Acetaminophen (Tylenol -) 650 mg PO Q4H PRN PRN Reason: FEVER OR PAIN Albuterol/Ipratropium (Duoneb -) 1 amp NEB QIDR [facility] Last Admin: 08/03/16 06:30 Dose: 1 amp Budesonide/Formoterol Fumarate (Symbicort 160/4.5mcg -) 2 puff IH BID [facility] Last Admin: 08/03/16 09:53 Dose: 2 puff Carvedilol (Coreg -) 12.5 mg PO BID [facility] Last Admin: 08/03/16 09:52 Dose: 12.5 mg Cholecalciferol (Vitamin D3 -) 1,000 unit PO DAILY [facility] Last Admin: 08/03/16 09:52 Dose: 1,000 unit Citalopram Hydrobromide (Celexa -) 40 mg PO DAILY [facility] Last Admin: 08/03/16 09:52 Dose: 40 mg Fluconazole (Diflucan -) 100 mg PO DAILY [facility] Last Admin: 08/03/16 09:52 Dose: 100 mg Dextrose (D5w -) 1,000 mls @ 42 mls/hr IV Q23H [facility] Last Admin: 08/02/16 18:05 Dose: 42 mls/hr Piperacillin Sod/Tazobactam Sod (Zosyn 2.25gm Ivpb (Pre-Docked)) 50 mls @ 100 mls/hr IVPB Q8H-IV NURIS PRN Reason: Protocol Last Admin: 08/03/16 09:53 Dose: 100 mls/hr Levothyroxine Sodium (Synthroid -) 88 mcg PO DAILY@0700 [facility] Last Admin: 08/03/16 06:01 Dose: 88 mcg Methylprednisolone Sodium Succinate (Solu-Medrol -) 40 mg IVPB DAILY [facility] Last Admin: 08/03/16 09:53 Dose: 40 mg Oxycodone HCl (Roxicodone -) 5 mg PO Q6H PRN PRN Reason: PAIN Last Admin: 08/03/16 09:51 Dose: 5 mg Pantoprazole Sodium (Protonix -) 40 mg PO DAILY [facility] Last Admin: 08/03/16 09:52 Dose: 40 mg - Objective Vital Signs: Vital Signs Temperature 98.7 F 08/03/16 08:13 Pulse Rate 100 H 08/03/16 08:13 Respiratory Rate 20 08/03/16 08:13 Blood Pressure 100/48 08/03/16 08:13 O2 Sat by Pulse Oximetry (%) 96 08/03/16 08:13 Constitutional: Yes: Well Nourished, Calm Eyes: Yes: WNL HENT: Yes: WNL Neck: Yes: WNL, Supple Cardiovascular: Yes: Regular Rate and Rhythm, S1, S2 Gastrointestinal: Yes: Normal Bowel Sounds, Soft Extremities: Yes: WNL Edema: No Labs: CBC, BMP 08/03/16 05:35 08/03/16 05:35 INR, PTT INR 1.07 (0.82-1.09) 07/31/16 05:50 Problem List - Problems (1) Acute on chronic renal failure Code(s): N17.9 - ACUTE KIDNEY FAILURE, UNSPECIFIED N18.9 - CHRONIC KIDNEY DISEASE, UNSPECIFIED Qualifiers: Acute renal failure type: unspecified Chronic kidney disease stage: unspecified stage Qualified Code(s): N17.9 - Acute kidney failure, unspecified; N18.9 - Chronic kidney disease, unspecified (2) COPD (chronic obstructive pulmonary disease) Code(s): J44.9 - CHRONIC OBSTRUCTIVE PULMONARY DISEASE, UNSPECIFIED Qualifiers : COPD type: unspecified COPD Qualified Code(s): J44.9 - Chronic obstructive pulmonary disease, unspecified (3) Hypoxia Code(s): R09.02 - HYPOXEMIA (4) Pneumonia Code(s): J18.9 - PNEUMONIA, UNSPECIFIED ORGANISM Qualifiers: Pneumonia type: due to unspecified organism Laterality: right Lung location: lower lobe of lung Qualified Code(s): J18.1 - Lobar pneumonia, unspecified organism (5) Status post fall Code(s): Z91.89 - OTH PERSONAL RISK FACTORS, NOT ELSEWHERE CLASSIFIED (6) ASHD (arteriosclerotic heart disease) Code(s): I25.10 - ATHSCL HEART DISEASE OF [place] CORONARY ARTERY W/O ANG PCTRS (7) Aortic stenosis Code(s): I35.0 - NONRHEUMATIC AORTIC (VALVE) STENOSIS Qualifiers: Cardiac valve disease etiology: nonrheumatic Qualified Code(s): I35.0 - Nonrheumatic aortic (valve) stenosis (8) Breast CA Code(s): C50.919 - MALIGNANT NEOPLASM OF UNSP SITE OF UNSPECIFIED FEMALE BREAST (9) CAD (coronary artery disease) Code(s): I25.10 - ATHSCL HEART DISEASE OF [place] CORONARY ARTERY W/O ANG PCTRS Qualifiers: Coronary Disease-Associated Artery/Lesion type: [place] artery [place] vs. transplanted heart: [place] heart Associated angina: without angina Qualified Code(s): I25.10 - Atherosclerotic heart disease of [place] coronary artery without angina pectoris (10) Lung cancer Code(s): C34.90 - [place] NEOPLASM OF [place]SP PART OF [place] BRONCHUS OR LUNG Qualifiers: Lung location: unspecified part of lung (11) S/P coronary artery stent placement Code(s): Z95.5 - PRESENCE OF CORONARY ANGIOPLASTY IMPLANT AND GRAFT (12) Chronic hypoxemic respiratory failure Code(s): J96.11 - CHRONIC RESPIRATORY FAILURE WITH HYPOXIA (13) Anemia Code(s): D64.9 - ANEMIA, UNSPECIFIED Qualifiers: Anemia type: due to other cause Other causes of anemia: chronic disease , kidney (14) GI bleed Code(s): K92.2 - GASTROINTESTINAL HEMORRHAGE, UNSPECIFIED Qualifiers: GI bleed type/associated pathology: unspecified gastrointestinal hemorrhage type Qualified Code(s): K92.2 - Gastrointestinal hemorrhage, unspecified Assessment/Plan Problem List - Problems (1) Acute on chronic renal failure Assessment/Plan: Code(s): N17.9 - ACUTE KIDNEY FAILURE, UNSPECIFIED N18.9 - CHRONIC KIDNEY DISEASE, UNSPECIFIED Qualifiers: Acute renal failure type: unspecified Chronic kidney disease stage: unspecified stage Qualified Code(s): N17.9 - Acute kidney failure, unspecified; N18.9 - Chronic kidney disease, unspecified (2) COPD (chronic obstructive pulmonary disease) Assessment/Plan: Code(s): J44.9 - CHRONIC OBSTRUCTIVE PULMONARY DISEASE, UNSPECIFIED Qualifiers : COPD type: unspecified COPD Qualified Code(s): J44.9 - Chronic obstructive pulmonary disease, unspecified (3) Leukocytosis Assessment/Plan: Code(s): D72.829 - ELEVATED WHITE BLOOD CELL COUNT, UNSPECIFIED Qualifiers: Leukocytosis type: other Qualified Code(s): D72.828 - Other elevated white blood cell count (4) Pneumonia Assessment/Plan: Code(s): J18.9 - PNEUMONIA, UNSPECIFIED ORGANISM Qualifiers: Pneumonia type: due to unspecified organism Laterality: right Lung location: lower lobe of lung Qualified Code(s): J18.1 - Lobar pneumonia, unspecified organism (5) CHF (congestive heart failure) Assessment/Plan: Code(s): I50.9 - HEART FAILURE, UNSPECIFIED (6) Lung cancer Code(s): C34.90 - [place] NEOPLASM OF UNSP PART OF UNSP BRONCHUS OR LUNG Qualifiers: Lung location: unspecified part of lung 7 GI BLEED PLAN: ABX Medrol daily BD TX O2 as needed transfuse an needed VTE prophylaxis monitor h+h,renal function DR ALVAREZ
--- NOTE | 2016-08-03 11:36 | PN ---
Progress Note, Physician History of Present Illness: Pt seen and examined at bedside. She is now in the [facility]. She denies shortness of breath. She denies dysuria. - Current Medication List Current Medications: Active Medications Acetaminophen (Tylenol -) 650 mg PO Q4H PRN PRN Reason: FEVER OR PAIN Albuterol/Ipratropium (Duoneb -) 1 amp NEB QIDR [facility] Last Admin: 08/03/16 06:30 Dose: 1 amp Budesonide/Formoterol Fumarate (Symbicort 160/4.5mcg -) 2 puff IH BID [facility] Last Admin: 08/03/16 09:53 Dose: 2 puff Carvedilol (Coreg -) 12.5 mg PO BID [facility] Last Admin: 08/03/16 09:52 Dose: 12.5 mg Cholecalciferol (Vitamin D3 -) 1,000 unit PO DAILY [facility] Last Admin: 08/03/16 09:52 Dose: 1,000 unit Citalopram Hydrobromide (Celexa -) 40 mg PO DAILY [facility] Last Admin: 08/03/16 09:52 Dose: 40 mg Fluconazole (Diflucan -) 100 mg PO DAILY [facility] Last Admin: 08/03/16 09:52 Dose: 100 mg Dextrose (D5w -) 1,000 mls @ 42 mls/hr IV Q23H [facility] Last Admin: 08/02/16 18:05 Dose: 42 mls/hr Piperacillin Sod/Tazobactam Sod (Zosyn 2.25gm Ivpb (Pre-Docked)) 50 mls @ 100 mls/hr IVPB Q8H-IV NURIS PRN Reason: Protocol Last Admin: 08/03/16 09:53 Dose: 100 mls/hr Levothyroxine Sodium (Synthroid -) 88 mcg PO DAILY@0700 [facility] Last Admin: 08/03/16 06:01 Dose: 88 mcg Methylprednisolone Sodium Succinate (Solu-Medrol -) 40 mg IVPB DAILY [facility] Last Admin: 08/03/16 09:53 Dose: 40 mg Oxycodone HCl (Roxicodone -) 5 mg PO Q6H PRN PRN Reason: PAIN Last Admin: 08/03/16 09:51 Dose: 5 mg Pantoprazole Sodium (Protonix -) 40 mg PO DAILY [facility] Last Admin: 08/03/16 09:52 Dose: 40 mg - Objective Vital Signs: Vital Signs Temperature 98.7 F 08/03/16 08:13 Pulse Rate 100 H 08/03/16 08:13 Respiratory Rate 20 08/03/16 08:13 Blood Pressure 100/48 08/03/16 08:13 O2 Sat by Pulse Oximetry (%) 96 08/03/16 08:13 Constitutional: Yes: Calm Eyes: Yes: Conjunctiva Clear HENT: Yes: Atraumatic Neck: Yes: Supple Cardiovascular: Yes: S1, S2 Respiratory: Yes: On Nasal O2, Rhonchi Gastrointestinal: Yes: Soft Genitourinary: Yes: WNL Musculoskeletal: Yes: WNL Edema: No Neurological: Yes: Oriented Psychiatric: Yes: Oriented Labs: CBC, BMP 08/03/16 05:35 08/03/16 05:35 INR, PTT INR 1.07 (0.82-1.09) 07/31/16 05:50 Problem List - Problems (1) Acute on chronic renal failure Code(s): N17.9 - ACUTE KIDNEY FAILURE, UNSPECIFIED N18.9 - CHRONIC KIDNEY DISEASE, UNSPECIFIED Qualifiers: Acute renal failure type: unspecified Chronic kidney disease stage: unspecified stage Qualified Code(s): N17.9 - Acute kidney failure, unspecified; N18.9 - Chronic kidney disease, unspecified (2) COPD (chronic obstructive pulmonary disease) Code(s): J44.9 - CHRONIC OBSTRUCTIVE PULMONARY DISEASE, UNSPECIFIED Qualifiers : COPD type: unspecified COPD Qualified Code(s): J44.9 - Chronic obstructive pulmonary disease, unspecified (3) Chronic hypoxemic respiratory failure Code(s): J96.11 - CHRONIC RESPIRATORY FAILURE WITH HYPOXIA (4) Hyperkalemia Code(s): E87.5 - HYPERKALEMIA (5) Hypoxia Code(s): R09.02 - HYPOXEMIA (6) Leukocytosis Code(s): D72.829 - ELEVATED WHITE BLOOD CELL COUNT, UNSPECIFIED Qualifiers: Leukocytosis type: other Qualified Code(s): D72.828 - Other elevated white blood cell count (7) Pneumonia Code(s): J18.9 - PNEUMONIA, UNSPECIFIED ORGANISM Qualifiers: Pneumonia type: due to unspecified organism Laterality: right Lung location: lower lobe of lung Qualified Code(s): J18.1 - Lobar pneumonia, unspecified organism (8) Breast CA Code(s): C50.919 - MALIGNANT NEOPLASM OF [place]SP SITE OF UNSPECIFIED FEMALE BREAST (9) CAD (coronary artery disease) Code(s): I25.10 - ATHSCL HEART DISEASE OF [place] CORONARY ARTERY W/O ANG PCTRS Qualifiers: Coronary Disease-Associated Artery/Lesion type: [place] artery [place] vs. transplanted heart: [place] heart Associated angina: without angina Qualified Code(s): I25.10 - Atherosclerotic heart disease of [place] coronary artery without angina pectoris Assessment/Plan Current Medications Generic Name Dose Route Start Last Admin Trade Name Freq PRN Reason Stop Dose Admin Acetaminophen 650 mg 08/02/16 13:44 Tylenol - PO Q4H PRN FEVER OR PAIN Albuterol/Ipratropium 1 amp 08/02/16 18:00 08/03/16 06:30 Duoneb - NEB 1 amp QIDR NURIS Administration Budesonide/Formoterol Fumarate 2 puff 08/02/16 22:00 08/03/16 09:53 Symbicort 160/4.5mcg - IH 2 puff BID NURIS Administration Carvedilol 12.5 mg 08/02/16 22:00 08/03/16 09:52 Coreg - PO 12.5 mg BID NURIS Administration Cholecalciferol 1,000 unit 08/03/16 10:00 08/03/16 09:52 Vitamin D3 - PO 1,000 unit DAILY NURIS Administration Citalopram Hydrobromide 40 mg 08/03/16 10:00 08/03/16 09:52 Celexa - PO 40 mg DAILY NURIS Administration Fluconazole 100 mg 08/03/16 10:00 08/03/16 09:52 Diflucan - PO 100 mg DAILY NURIS Administration Dextrose 1,000 mls @ 42 mls/hr 08/02/16 13:44 08/02/16 18:05 D5w - IV 42 mls/hr Q23H NURIS Administration Piperacillin Sod/Tazobactam Sod 50 mls @ 100 mls/hr 08/02/16 18:00 08/03/16 09: 53 Zosyn 2.25gm Ivpb (Pre-Docked) IVPB 100 mls/hr Q8H-IV NURIS Administration Protocol Levothyroxine Sodium 88 mcg 08/03/16 07:00 08/03/16 06:01 Synthroid - PO 88 mcg DAILY@0700 NURIS Administration Methylprednisolone Sodium Succinate 40 mg 08/03/16 10:00 08/03/16 09:53 Solu-Medrol - IVPB 40 mg DAILY NURIS Administration Oxycodone HCl 5 mg 08/02/16 13:44 08/03/16 09:51 Roxicodone - PO 5 mg Q6H PRN Administration PAIN Pantoprazole Sodium 40 mg 08/03/16 10:00 08/03/16 09:52 Protonix - PO 40 mg DAILY NURIS Administration Impression 1. CKD 2. FRANK 3. hyperkalemia 4. CAD with cardiac stents 5. HTN 6. Hyperlipidemia 7. Hypothyroidism 8. H/O Breast 9. Lung Ca 10. Anemia 11. sepsis 12. PNA 13. hypernatremia Plan - will further decrease the rate of fluids - repeat labs in am - hg is dropping - sodium is stabilized - renal function is stabilizing - monitor pulse ox - will follow pt Dr Schilling
[2016-08-03] MEDS ORDERED: DEXTROSE 5%-WATER - 1,000 ML IV SCH (11:38)
--- NOTE | 2016-08-03 16:16 | PN ---
Progress Note, Physician Chief Complaint: Weakness and fatigue SOB Atypical chest pain History of Present Illness: Patient came in the hospital for PNE, Pleural effusion, dehydration and leukocytosis. Patient lying in bed comfortably, Feels better. H/H dropped, guaiac positive but EGD negative for obvious bleeding. 1 unit PRBC ordered. Repeat CBC at 2200 and 0600. Pantoprazole changed to IV for time being. Repeat iron studies. - Current Medication List Current Medications: Active Medications Acetaminophen (Tylenol -) 650 mg PO Q4H PRN PRN Reason: FEVER OR PAIN Albuterol/Ipratropium (Duoneb -) 1 amp NEB QIDR [facility] Last Admin: 08/03/16 11:05 Dose: 1 amp Budesonide/Formoterol Fumarate (Symbicort 160/4.5mcg -) 2 puff IH BID [facility] Last Admin: 08/03/16 09:53 Dose: 2 puff Carvedilol (Coreg -) 12.5 mg PO BID [facility] Last Admin: 08/03/16 09:52 Dose: 12.5 mg Cholecalciferol (Vitamin D3 -) 1,000 unit PO DAILY [facility] Last Admin: 08/03/16 09:52 Dose: 1,000 unit Citalopram Hydrobromide (Celexa -) 40 mg PO DAILY [facility] Last Admin: 08/03/16 09:52 Dose: 40 mg Fluconazole (Diflucan -) 100 mg PO DAILY [facility] Last Admin: 08/03/16 09:52 Dose: 100 mg Piperacillin Sod/Tazobactam Sod (Zosyn 2.25gm Ivpb (Pre-Docked)) 50 mls @ 100 mls/hr IVPB Q8H-IV NURIS PRN Reason: Protocol Last Admin: 08/03/16 09:53 Dose: 100 mls/hr Dextrose (D5w -) 1,000 mls @ 35 mls/hr IV ASDIR [facility] Last Admin: 08/03/16 12:36 Dose: 35 mls/hr Levothyroxine Sodium (Synthroid -) 88 mcg PO DAILY@0700 [facility] Last Admin: 08/03/16 06:01 Dose: 88 mcg Methylprednisolone Sodium Succinate (Solu-Medrol -) 40 mg IVPB DAILY [facility] Last Admin: 08/03/16 09:53 Dose: 40 mg Oxycodone HCl (Roxicodone -) 5 mg PO Q6H PRN PRN Reason: PAIN Last Admin: 08/03/16 09:51 Dose: 5 mg Pantoprazole Sodium (Protonix -) 40 mg PO DAILY [facility] Last Admin: 08/03/16 09:52 Dose: 40 mg - Objective Vital Signs: Vital Signs Temperature 97.9 F 08/03/16 14:10 Pulse Rate 82 08/03/16 14:10 Respiratory Rate 18 08/03/16 14:10 Blood Pressure 89/52 08/03/16 14:10 O2 Sat by Pulse Oximetry (%) 97 08/03/16 10:50 Constitutional: Yes: Well Nourished, No Distress, Calm Cardiovascular: Yes: Regular Rate and Rhythm Respiratory: Yes: Regular Gastrointestinal: Yes: Normal Bowel Sounds Extremities: Yes: WNL Edema: No Peripheral Pulses WNL: Yes Neurological: Yes: Alert, Oriented Labs: CBC, BMP 08/03/16 05:35 08/03/16 05:35 INR, PTT INR 1.07 (0.82-1.09) 07/31/16 05:50 Problem List - Problems (1) Acute on chronic renal failure Code(s): N17.9 - ACUTE KIDNEY FAILURE, UNSPECIFIED N18.9 - CHRONIC KIDNEY DISEASE, UNSPECIFIED Qualifiers: Acute renal failure type: unspecified Chronic kidney disease stage: unspecified stage Qualified Code(s): N17.9 - Acute kidney failure, unspecified; N18.9 - Chronic kidney disease, unspecified (2) COPD (chronic obstructive pulmonary disease) Code(s): J44.9 - CHRONIC OBSTRUCTIVE PULMONARY DISEASE, UNSPECIFIED Qualifiers : COPD type: unspecified COPD Qualified Code(s): J44.9 - Chronic obstructive pulmonary disease, unspecified (3) Hypoxia Code(s): R09.02 - HYPOXEMIA (4) Leukocytosis Code(s): D72.829 - ELEVATED WHITE BLOOD CELL COUNT, UNSPECIFIED Qualifiers: Leukocytosis type: other Qualified Code(s): D72.828 - Other elevated white blood cell count (5) Pneumonia Code(s): J18.9 - PNEUMONIA, UNSPECIFIED ORGANISM Qualifiers: Pneumonia type: due to unspecified organism Laterality: right Lung location: lower lobe of lung Qualified Code(s): J18.1 - Lobar pneumonia, unspecified organism (6) Weakness Code(s): R53.1 - WEAKNESS (7) Anemia Assessment/Plan: SOURCE-GI, MONITOR H/H Code(s): D64.9 - ANEMIA, UNSPECIFIED Qualifiers: Anemia type: due to other cause Other causes of anemia: chronic disease , kidney Assessment/Plan MONITOR H/H TRANSFUSE PRBC PROTONIX IV
[2016-08-03] MEDS ORDERED: PANTOPRAZOLE SODIUM 80 MG in SODIUM CHLORIDE 100 ML IVPB SCH (16:30)
--- NOTE | 2016-08-03 19:03 | PN ---
GI Progress Note Subjective: H/H decreased No BM / melena today EGD yesterday failed to reveal overt bleeding source - Objective Vital Signs: Vital Signs Temperature 97.9 F 08/03/16 14:10 Pulse Rate 82 08/03/16 14:10 Respiratory Rate 18 08/03/16 14:10 Blood Pressure 89/52 08/03/16 14:10 O2 Sat by Pulse Oximetry (%) 97 08/03/16 10:50 Constitutional: Calm Cardiovascular: Yes: Regular Rate and Rhythm Gastrointestinal Inspection: No: Distention ...Auscultate: Yes: Normoactive Bowel Sounds ...Palpate: No: Tenderness ...Rectal Exam: Yes: Other (No melena, guaiac + scarnt dark brown stool) Edema: No Labs: CBC, BMP 08/03/16 05:35 08/03/16 05:35 INR, PTT INR 1.07 (0.82-1.09) 07/31/16 05:50 Problem List - Problems (1) Anemia Assessment/Plan: Continued heme w/u If no evidence of hemolysis and H/H continues to dwindle discussed possible colonoscopy with Ms. Jansen Code(s): D64.9 - ANEMIA, UNSPECIFIED Qualifiers: Anemia type: due to other cause Other causes of anemia: chronic disease , kidney
--- NOTE | 2016-08-03 21:43 | PN ---
Progress Note (short form) - Note Progress Note: PAtient seen and examined DEnies any complaints Was transfused PRBcs for Hgb 6.8 Last Vital Signs Temp Pulse Resp BP Pulse Ox 98 F 96 H 20 120/68 97 08/03/16 20:55 08/03/16 20:55 08/03/16 20:55 08/03/16 20:55 08/03/16 20:55 Cor: RSR, No murmurs, No gallops Lungs: Clear to P&A Abd: Soft, Normal bowel sounds, No organomegaly Ext:No significant edema Skin: No rashes, Integument intact Abnormal Lab Results 07/31/16 08/03/16 08/03/16 05:50 05:35 05:35 WBC 19.7 H RBC 2.35 L Hgb 6.8 L* D Hct 20.9 L RDW 16.2 H MPV 7.2 L Neutrophils % 86.0 H Lymphocytes % 2.0 L D Metamyelocytes 3 H Retic Count 3.63 H D Chloride BUN Creatinine Calcium Total Protein Albumin Crossmatch See Detail 08/03/16 08/03/16 05:35 11:41 WBC RBC Hgb Hct RDW MPV Neutrophils % Lymphocytes % Metamyelocytes Retic Count Chloride 110 H BUN 58 H D Creatinine 1.7 H Calcium 7.9 L Total Protein 4.5 L Albumin 1.9 L Crossmatch See Detail Home Medication List Medication Instructions Recorded Confirmed Type Citalopram Hydrobromide 40 mg PO DAILY 11/12/15 07/26/16 History [Citalopram HBr] Cholecalciferol (Vitamin D3) 1,000 unit PO DAILY 01/07/16 07/26/16 History [Vitamin D -] Levothyroxine [Synthroid -] 0.5 tab PO DAILY@0700 03/07/16 07/26/16 History Budesonide/Formeterol Fumarate 1 inh PO BID 07/26/16 07/26/16 History [SYMBICORT 160/4.5mcg -] Furosemide [Lasix] 40 mg PO DAILY 07/26/16 07/26/16 History Prednisone 20 mg PO DAILY 07/26/16 07/26/16 History Active Medications Generic Name Dose Route Start Last Admin Trade Name Freq PRN Reason Stop Dose Admin Acetaminophen 650 mg 08/02/16 13:44 Tylenol - PO Q4H PRN FEVER OR PAIN Albuterol/Ipratropium 1 amp 08/02/16 18:00 08/03/16 17:02 Duoneb - NEB Not Given QIDR NURIS Budesonide/Formoterol Fumarate 2 puff 08/02/16 22:00 08/03/16 09:53 Symbicort 160/4.5mcg - IH 2 puff BID NURIS Administration Carvedilol 12.5 mg 08/02/16 22:00 08/03/16 21:08 Coreg - PO 12.5 mg BID NURIS Administration Cholecalciferol 1,000 unit 08/03/16 10:00 08/03/16 09:52 Vitamin D3 - PO 1,000 unit DAILY NURIS Administration Citalopram Hydrobromide 40 mg 08/03/16 10:00 08/03/16 09:52 Celexa - PO 40 mg DAILY NURIS Administration Docusate Sodium 100 mg 08/03/16 22:00 Colace - PO TID NURIS Fluconazole 100 mg 08/03/16 10:00 08/03/16 09:52 Diflucan - PO 100 mg DAILY [facility] Administration Piperacillin Sod/Tazobactam Sod 50 mls @ 100 mls/hr 08/02/16 18:00 08/03/16 18: 18 Zosyn 2.25gm Ivpb (Pre-Docked) IVPB 100 mls/hr Q8H-IV NURIS Administration Protocol Dextrose 1,000 mls @ 35 mls/hr 08/03/16 11:38 08/03/16 12:36 D5w - IV 35 mls/hr ASDIR NURIS Administration Levothyroxine Sodium 88 mcg 08/03/16 07:00 08/03/16 06:01 Synthroid - PO 88 mcg DAILY@0700 [facility] Administration Methylprednisolone Sodium Succinate 40 mg 08/03/16 10:00 08/03/16 09:53 Solu-Medrol - IVPB 40 mg DAILY [facility] Administration Oxycodone HCl 5 mg 08/03/16 16:44 08/03/16 21:07 Roxicodone - PO 5 mg Q4H PRN Administration PAIN Pantoprazole Sodium 40 mg 08/04/16 10:00 Protonix - PO DAILY [facility] A/P 76 y/o patient with h/o breast Cancer --treated by --originally 8 yrs. ago s/p lumpectomy/RT/tamoxifen x 5yrs. ?? recurrence vs lung primary ---?? mediastinum --s/p chemo /RT in 2013 was on Nicholas /cis for 8 cycles then switched to gemzaar --bolton s been off therapy Has cisplatin induced neuropathy/CKD Bone scan this admission showed no e/o disease Now with pneumonia. CT scans--RLL peumonia/spheoid sinusitis/COPD Also gi bleed? On protonix for colonoscopy LDH --nl. , unlikely hemolysis
[2016-08-03 22:02] LABS: MCH 29.3 pg (25.7-33.7); MCHC 32.7 g/dl (32.0-36.0); MEAN CELL VOLUME 89.7 fl (80-96); MEAN PLT VOLUME 7.2 fl (7.5-11.1); PLATELET COUNT 314 K/MM3 (134-434); RDW 15.2 % (11.6-15.6)
[2016-08-04] MEDS: ALBUTEROL SO4 2.5/IPRATROPIUM 0.5 INH SOL 3 ML VIAL.NEB. NEB SCH ×5 (00:22→23:20)
[2016-08-04] MEDS: DOCUSATE SODIUM 100 MG CAPSULE (FP) PO SCH ×4 (01:54→22:09)
[2016-08-04] MEDS: PIPERACILLIN/TAZOB 2.25 GM 50 ML IVPB SCH ×3 (02:01→10:45)
[2016-08-04] MEDS: LEVOTHYROXINE NA 88 MCG TABLET (FP) PO SCH (06:34)
[2016-08-04 07:10] LABS: BASOPHIL 0.1 % (0-2.0); MCH 30.3 pg (25.7-33.7); MEAN CELL VOLUME 89.1 fl (80-96); MEAN PLT VOLUME 7.1 fl (7.5-11.1); NEUTROPHILS 86.6 % (42.8-82.8); PLATELET COUNT 322 K/MM3 (134-434); RDW 15.5 % (11.6-15.6); WHITE BLOOD COUNT 18.2 K/mm3 (4.0-10.0)
[2016-08-04] MEDS ORDERED: FUROSEMIDE 40 MG/4 ML INJECTABLE VIAL IVPUSH ONE ×2 (07:39→10:39)
[2016-08-04] MEDS ORDERED: PT OWN MED DRAWER 7, Y5N ONE (09:47)
[2016-08-04] MEDS: BUDESONIDE/FORMETEROL FUMARATE 160/4.5 mcg INHALER IH SCH ×2 (09:49→22:11)
[2016-08-04] MEDS: CITALOPRAM HYDROBROMIDE 20 MG TABLET (FP) PO SCH (09:50)
[2016-08-04] MEDS: CARVEDILOL 12.5 MG TABLET (FP) PO SCH ×2 (09:50→22:09)
[2016-08-04] MEDS: FLUCONAZOLE 100 MG TABLET (UD) PO SCH (09:50)
[2016-08-04] MEDS: PANTOPRAZOLE 40 MG TABLET (FP) PO SCH (09:50)
[2016-08-04] MEDS: methylPREDNISolone NA SUCC 40 MG/1 ML VIAL IVPB SCH ×2 (09:50→13:39)
[2016-08-04] MEDS: CHOLECALCIFEROL (VITAMIN D3) 1,000 UNIT TABLET (FP) PO SCH (09:51)
--- NOTE | 2016-08-04 10:34 | PN ---
Progress Note, Physician Chief Complaint: Events noted Generalized weakness Sinus tachycardia with ambulation H/H has diminished at 8.1/23.7 and elevated WBC History of Present Illness: Patient was seen and examined. Awake and alert. Chart was reviewed EGD without clear source of bleed. GI input noted No chest pain or SOB - Current Medication List Current Medications: Active Medications Acetaminophen (Tylenol -) 650 mg PO Q4H PRN PRN Reason: FEVER OR PAIN Albuterol/Ipratropium (Duoneb -) 1 amp NEB QIDR [facility] Last Admin: 08/04/16 06:50 Dose: Not Given Budesonide/Formoterol Fumarate (Symbicort 160/4.5mcg -) 2 puff IH BID [facility] Last Admin: 08/04/16 09:49 Dose: 2 puff Carvedilol (Coreg -) 12.5 mg PO BID [facility] Last Admin: 08/04/16 09:50 Dose: 12.5 mg Cholecalciferol (Vitamin D3 -) 1,000 unit PO DAILY [facility] Last Admin: 08/04/16 09:51 Dose: 1,000 unit Citalopram Hydrobromide (Celexa -) 40 mg PO DAILY [facility] Last Admin: 08/04/16 09:50 Dose: 40 mg Docusate Sodium (Colace -) 100 mg PO TID [facility] Last Admin: 08/04/16 06:34 Dose: Not Given Fluconazole (Diflucan -) 100 mg PO DAILY [facility] Last Admin: 08/04/16 09:50 Dose: 100 mg Piperacillin Sod/Tazobactam Sod (Zosyn 2.25gm Ivpb (Pre-Docked)) 50 mls @ 100 mls/hr IVPB Q8H-IV NURIS PRN Reason: Protocol Last Admin: 08/04/16 09:51 Dose: 100 mls/hr Dextrose (D5w -) 1,000 mls @ 35 mls/hr IV ASDIR [facility] Last Admin: 08/03/16 12:36 Dose: 35 mls/hr Levothyroxine Sodium (Synthroid -) 88 mcg PO DAILY@0700 [facility] Last Admin: 08/04/16 06:34 Dose: 88 mcg Methylprednisolone Sodium Succinate (Solu-Medrol -) 40 mg IVPB DAILY [facility] Last Admin: 08/04/16 09:50 Dose: 40 mg Oxycodone HCl (Roxicodone -) 5 mg PO Q4H PRN PRN Reason: PAIN Last Admin: 08/03/16 21:07 Dose: 5 mg Pantoprazole Sodium (Protonix -) 40 mg PO DAILY [facility] Last Admin: 08/04/16 09:50 Dose: 40 mg - Objective Vital Signs: Vital Signs Temperature 98 F 08/04/16 05:43 Pulse Rate 86 08/04/16 05:43 Respiratory Rate 20 08/04/16 05:43 Blood Pressure 148/82 08/04/16 05:43 O2 Sat by Pulse Oximetry (%) 97 08/03/16 20:55 Neck: Yes: Supple Cardiovascular: Yes: Regular Rate and Rhythm, S1, S2 Respiratory: Yes: Diminished Gastrointestinal: Yes: Normal Bowel Sounds, Soft. No: Tenderness Edema: No Additional Findings/Remarks: Review of Systems Cardiovascular: As noted above Respiratory: denies: Cough or Sputum Production Gastrointestinal: denies: Nausea, Vomiting, Diarrhea, Constipation or Abdominal Discomfort Musculoskeletal: Chronic Low Back Pain Syndrome Endocrine: No Symptoms Reported Labs: CBC, BMP 08/04/16 05:35 08/03/16 05:35 Problem List - Problems (1) Acute on chronic renal failure Code(s): N17.9 - ACUTE KIDNEY FAILURE, UNSPECIFIED N18.9 - CHRONIC KIDNEY DISEASE, UNSPECIFIED Qualifiers: Acute renal failure type: unspecified Chronic kidney disease stage: unspecified stage Qualified Code(s): N17.9 - Acute kidney failure, unspecified; N18.9 - Chronic kidney disease, unspecified (2) COPD (chronic obstructive pulmonary disease) Code(s): J44.9 - CHRONIC OBSTRUCTIVE PULMONARY DISEASE, UNSPECIFIED Qualifiers : COPD type: unspecified COPD Qualified Code(s): J44.9 - Chronic obstructive pulmonary disease, unspecified (3) Pneumonia Code(s): J18.9 - PNEUMONIA, UNSPECIFIED ORGANISM Qualifiers: Pneumonia type: due to unspecified organism Laterality: right Lung location: lower lobe of lung Qualified Code(s): J18.1 - Lobar pneumonia, unspecified organism (4) Status post fall Code(s): Z91.89 - OTH PERSONAL RISK FACTORS, NOT ELSEWHERE CLASSIFIED (5) Anemia Code(s): D64.9 - ANEMIA, UNSPECIFIED Qualifiers: Anemia type: due to other cause Other causes of anemia: chronic disease , kidney (6) Aortic stenosis Code(s): I35.0 - NONRHEUMATIC AORTIC (VALVE) STENOSIS Qualifiers: Cardiac valve disease etiology: nonrheumatic Qualified Code(s): I35.0 - Nonrheumatic aortic (valve) stenosis (7) Breast CA Code(s): C50.919 - MALIGNANT NEOPLASM OF UNSP SITE OF UNSPECIFIED FEMALE BREAST (8) CAD (coronary artery disease) Code(s): I25.10 - ATHSCL HEART DISEASE OF [place] CORONARY ARTERY W/O ANG PCTRS Qualifiers: Coronary Disease-Associated Artery/Lesion type: [place] artery [place] vs. transplanted heart: [place] heart Associated angina: without angina Qualified Code(s): I25.10 - Atherosclerotic heart disease of [place] coronary artery without angina pectoris (9) CHF (congestive heart failure) Code(s): I50.9 - HEART FAILURE, UNSPECIFIED Qualifiers: Congestive heart failure type: diastolic Congestive heart failure chronicity: acute on chronic Qualified Code(s): I50.33 - Acute on chronic diastolic (congestive) heart failure (10) Demand ischemia Code(s): I24.8 - OTHER FORMS OF ACUTE ISCHEMIC HEART DISEASE (11) Diastolic dysfunction Code(s): I51.9 - HEART DISEASE, UNSPECIFIED (12) Lung cancer Code(s): C34.90 - MALIGNANT NEOPLASM OF UNSP PART OF UNSP BRONCHUS OR LUNG Qualifiers: Lung location: unspecified part of lung (13) S/P coronary artery stent placement Code(s): Z95.5 - PRESENCE OF CORONARY ANGIOPLASTY IMPLANT AND GRAFT Assessment/Plan 1. 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 Right lower lobe Pneumonia, resolving 3. Gait dysfunction and near syncope due to postural hypotension 4. CAD post PCI/stent, angina pectoris 5. Diastolic left ventricular dysfunction with class 0-I NYHA classification LV failure and pulmonary HTN 6. Aortic valve disease, moderate aortic valve stenosis 7. HTN/HCVD 8. Hypercholesterolemia 9. Hypothyroidism 10. COPD with chronic hypoxemic respiratory failure 11. History of lung carcinoma post chemotherapy 12. History of breast carcinoma post lumpectomy and chemotherapy 13. Acute on CKD due to sepsis 14. Anemia PLAN: 1. Monitor Hgb/hct and transfuse PRBC this am with Lasix diane 2. Continue Coreg 12.5 mg bid 3. Continue to hold ASA. GI follow up to decide whether she would need colonoscopy. 4. Complete antibiotic course 5. Continue to hold Lisinopril and diuretics pending renal function stabilization Further plans are to follow Michael Steward MD
[2016-08-04] MEDS: oxyCODONE HCL 5 MG TABLET PO PRN ×3 (10:44→23:04)
[2016-08-04] MEDS: ACETAMINOPHEN 325 MG TABLET (FP) PO PRN ×3 (10:44→23:05)
--- NOTE | 2016-08-04 11:36 | PATH ---
Surgical Pathology Report Patient Name: BRITTA HUTTON [facility]. Rec. #: [id number] /Age/Gender: 1940 (Age: 76) / F Account: [id number] Location: 4 TELEMETRY U Taken: 08/02/2016 Received: 08/03/2016 Reported: 08/04/2016 Physicians: Kei Dawkins M.D. Specimen(s) Received A: BX DUODENAL POLYP B: BX GASTRIC EROSIONS Clinical History GI bleeding Gastritis, duodenitis Final Diagnosis A. DUODENUM, POLYP, BIOPSY: TUBULAR ADENOMA. NO HIGH GRADE DYSPLASIA IDENTIFIED. B. STOMACH, GASTRIC EROSION, BIOPSY: GASTRIC FUNDIC MUCOSA WITH FOCAL MILD CHRONIC GASTRITIS. IMMUNOSTAIN FOR H. PYLORI IS NEGATIVE. Electronically Signed Primo June M.D. Gross Description A. Received in formalin, labeled "biopsy duodenal polyp" are 2 cornelius, irregular portions of soft tissue averaging 0.2 cm. in greatest dimension. The specimens are submitted in toto in one cassette. B. Received in formalin, labeled "biopsy gastric erosion" is a cornelius, irregular portion of soft tissue measuring 0.6 cm. in greatest dimension. The specimen is submitted in toto in one cassette. 08/03/201608/03/2016
--- NOTE | 2016-08-04 12:03 | PN ---
Progress Note, Physician Chief Complaint: ID Offers no complaints Zosyn day 8 Rx - Current Medication List Current Medications: Active Medications Acetaminophen (Tylenol -) 650 mg PO Q4H PRN PRN Reason: FEVER OR PAIN Last Admin: 08/04/16 10:44 Dose: 650 mg Albuterol/Ipratropium (Duoneb -) 1 amp NEB QIDR [facility] Last Admin: 08/04/16 11:14 Dose: 1 amp Budesonide/Formoterol Fumarate (Symbicort 160/4.5mcg -) 2 puff IH BID [facility] Last Admin: 08/04/16 09:49 Dose: 2 puff Carvedilol (Coreg -) 12.5 mg PO BID [facility] Last Admin: 08/04/16 09:50 Dose: 12.5 mg Cholecalciferol (Vitamin D3 -) 1,000 unit PO DAILY [facility] Last Admin: 08/04/16 09:51 Dose: 1,000 unit Citalopram Hydrobromide (Celexa -) 40 mg PO DAILY [facility] Last Admin: 08/04/16 09:50 Dose: 40 mg Docusate Sodium (Colace -) 100 mg PO TID [facility] Last Admin: 08/04/16 06:34 Dose: Not Given Fluconazole (Diflucan -) 100 mg PO DAILY [facility] Last Admin: 08/04/16 09:50 Dose: 100 mg Piperacillin Sod/Tazobactam Sod (Zosyn 2.25gm Ivpb (Pre-Docked)) 50 mls @ 100 mls/hr IVPB Q8H-IV NURIS PRN Reason: Protocol Last Admin: 08/04/16 09:51 Dose: 100 mls/hr Levothyroxine Sodium (Synthroid -) 88 mcg PO DAILY@0700 [facility] Last Admin: 08/04/16 06:34 Dose: 88 mcg Methylprednisolone Sodium Succinate (Solu-Medrol -) 40 mg IVPB DAILY [facility] Last Admin: 08/04/16 09:50 Dose: 40 mg Oxycodone HCl (Roxicodone -) 5 mg PO Q4H PRN PRN Reason: PAIN Last Admin: 08/04/16 10:44 Dose: 5 mg Pantoprazole Sodium (Protonix -) 40 mg PO DAILY [facility] Last Admin: 08/04/16 09:50 Dose: 40 mg - Objective Vital Signs: Vital Signs Temperature 98 F 08/04/16 05:43 Pulse Rate 87 08/04/16 11:13 Respiratory Rate 20 08/04/16 05:43 Blood Pressure 148/82 08/04/16 05:43 O2 Sat by Pulse Oximetry (%) 90 L 08/04/16 11:13 Constitutional: Yes: No Distress, Thin Neck: Yes: WNL, Supple Cardiovascular: Yes: S1, S2 Respiratory: Yes: WNL, Regular, CTA Bilaterally, Rales, Rhonchi, SOB on Exertion Gastrointestinal: Yes: Normal Bowel Sounds, Soft. No: Tenderness, Tenderness, Epigastrium Edema: No Labs: CBC, BMP 08/04/16 05:35 08/03/16 05:35 INR, PTT INR 1.07 (0.82-1.09) 07/31/16 05:50 Assessment/Plan Microbiology 07/30/16 09:00 Stool Clostridium difficile Antigen (SAE) - Final 07/30/16 09:00 Stool Clostridium difficile Toxin Assay - Final 07/27/16 18:15 Urine For Antigen Detection Legionella Antigen - Final 07/27/16 18:15 Urine For Antigen Detection Streptococcus pneumoniae Antigen (M - Final 07/27/16 16:30 Sputum - Expectorated Gram Stain - Final 07/27/16 16:30 Sputum - Expectorated Sputum Culture - Final Pseudomonas Aeruginosa Yeast Like Organism 07/27/16 10:00 Blood - Peripheral Venous Blood Culture - Final NO GROWTH AFTER 5 DAYS INCUBATION 07/27/16 10:00 Blood - Peripheral Venous Blood Culture - Final NO GROWTH AFTER 5 DAYS INCUBATION 07/26/16 20:18 Urine - Urine - Catheterized Urine Culture - Final NO GROWTH OBTAINED Laboratory Tests 08/03/16 08/04/16 05:35 05:35 WBC 18.2 H Hgb 8.1 L Hct 23.7 L Plt Count 322 BUN 58 H D Creatinine 1.7 H Assessment PNA pseudomonas isolated Plan Stop Zosyn substitiute levofloxacin 250mg daily 3 days [facility] LOPES
[2016-08-04] MEDS ORDERED: LEVOFLOXACIN 250 MG TABLET (FP) PO SCH (12:30)
--- NOTE | 2016-08-04 13:53 | PN ---
Progress Note (short form) - Note Progress Note: PULMONARY States breathing is improving. No cough or wheezing. Denies chest pain. Last Vital Signs Temp Pulse Resp BP Pulse Ox 98 F 87 20 148/82 90 L 08/04/16 05:43 08/04/16 11:13 08/04/16 05:43 08/04/16 05:43 08/04/16 11:13 Gen: NAD at rest Heart: RRR Lung: decreased breath sounds at the bases Abd: soft, nontender Ext: no edema CBC, BMP 08/04/16 05:35 08/03/16 05:35 Active Medications Acetaminophen (Tylenol -) 650 mg PO Q4H PRN PRN Reason: FEVER OR PAIN Last Admin: 08/04/16 10:44 Dose: 650 mg Albuterol/Ipratropium (Duoneb -) 1 amp NEB QIDR [facility] Last Admin: 08/04/16 11:14 Dose: 1 amp Budesonide/Formoterol Fumarate (Symbicort 160/4.5mcg -) 2 puff IH BID [facility] Last Admin: 08/04/16 09:49 Dose: 2 puff Carvedilol (Coreg -) 12.5 mg PO BID [facility] Last Admin: 08/04/16 09:50 Dose: 12.5 mg Cholecalciferol (Vitamin D3 -) 1,000 unit PO DAILY [facility] Last Admin: 08/04/16 09:51 Dose: 1,000 unit Citalopram Hydrobromide (Celexa -) 40 mg PO DAILY [facility] Last Admin: 08/04/16 09:50 Dose: 40 mg Docusate Sodium (Colace -) 100 mg PO TID [facility] Last Admin: 08/04/16 06:34 Dose: Not Given Fluconazole (Diflucan -) 100 mg PO DAILY [facility] Last Admin: 08/04/16 09:50 Dose: 100 mg Levofloxacin (Levaquin -) 250 mg PO Q2D@0600 [facility] Last Admin: 08/04/16 12:46 Dose: 250 mg Levothyroxine Sodium (Synthroid -) 88 mcg PO DAILY@0700 [facility] Last Admin: 08/04/16 06:34 Dose: 88 mcg Methylprednisolone Sodium Succinate (Solu-Medrol -) 40 mg IVPB DAILY [facility] Last Admin: 08/04/16 13:39 Dose: Not Given Oxycodone HCl (Roxicodone -) 5 mg PO Q4H PRN PRN Reason: PAIN Last Admin: 08/04/16 10:44 Dose: 5 mg Pantoprazole Sodium (Protonix -) 40 mg PO DAILY [facility] Last Admin: 08/04/16 09:50 Dose: 40 mg A/P GI Bleed Anemia Pneumonia COPD Chronic Hypoxic Respiratory Failure CAD Aortic Stenosis HTN Hypercholesterolemia Acute on Chronic Renal Failure improving - complete antibiotics per ID - inhaled bronchodilators - will change steroids to PO - O2 to keep SPo2 >90% - monitor H/H - DVT prophylaxis
--- NOTE | 2016-08-04 15:41 | PN ---
Progress Note, Physician History of Present Illness: Pt seen and examined at bedside. She is awake and alert. She says she feels better today. - Current Medication List Current Medications: Active Medications Acetaminophen (Tylenol -) 650 mg PO Q4H PRN PRN Reason: FEVER OR PAIN Last Admin: 08/04/16 10:44 Dose: 650 mg Albuterol/Ipratropium (Duoneb -) 1 amp NEB QIDR [facility] Last Admin: 08/04/16 11:14 Dose: 1 amp Budesonide/Formoterol Fumarate (Symbicort 160/4.5mcg -) 2 puff IH BID [facility] Last Admin: 08/04/16 09:49 Dose: 2 puff Carvedilol (Coreg -) 12.5 mg PO BID [facility] Last Admin: 08/04/16 09:50 Dose: 12.5 mg Cholecalciferol (Vitamin D3 -) 1,000 unit PO DAILY [facility] Last Admin: 08/04/16 09:51 Dose: 1,000 unit Citalopram Hydrobromide (Celexa -) 40 mg PO DAILY [facility] Last Admin: 08/04/16 09:50 Dose: 40 mg Docusate Sodium (Colace -) 100 mg PO TID [facility] Last Admin: 08/04/16 06:34 Dose: Not Given Fluconazole (Diflucan -) 100 mg PO DAILY [facility] Last Admin: 08/04/16 09:50 Dose: 100 mg Levofloxacin (Levaquin -) 250 mg PO Q2D@0600 [facility] Last Admin: 08/04/16 12:46 Dose: 250 mg Levothyroxine Sodium (Synthroid -) 88 mcg PO DAILY@0700 [facility] Last Admin: 08/04/16 06:34 Dose: 88 mcg Oxycodone HCl (Roxicodone -) 5 mg PO Q4H PRN PRN Reason: PAIN Last Admin: 08/04/16 10:44 Dose: 5 mg Pantoprazole Sodium (Protonix -) 40 mg PO DAILY [facility] Last Admin: 08/04/16 09:50 Dose: 40 mg Prednisone (Deltasone -) 40 mg PO DAILY [facility] - Objective Vital Signs: Vital Signs Temperature 98.9 F 08/04/16 14:01 Pulse Rate 89 08/04/16 14:01 Respiratory Rate 18 08/04/16 14:01 Blood Pressure 116/64 08/04/16 14:01 O2 Sat by Pulse Oximetry (%) 90 L 08/04/16 11:13 Constitutional: Yes: Calm Eyes: Yes: Conjunctiva Clear HENT: Yes: Atraumatic Neck: Yes: Supple Cardiovascular: Yes: S1, S2 Respiratory: Yes: On Nasal O2 Gastrointestinal: Yes: Normal Bowel Sounds, Soft Genitourinary: Yes: WNL Musculoskeletal: Yes: WNL Edema: No Neurological: Yes: Oriented Psychiatric: Yes: Oriented Labs: CBC, BMP 08/04/16 05:35 08/03/16 05:35 INR, PTT INR 1.07 (0.82-1.09) 07/31/16 05:50 Problem List - Problems (1) Acute on chronic renal failure Code(s): N17.9 - ACUTE KIDNEY FAILURE, UNSPECIFIED N18.9 - CHRONIC KIDNEY DISEASE, UNSPECIFIED Qualifiers: Acute renal failure type: unspecified Chronic kidney disease stage: unspecified stage Qualified Code(s): N17.9 - Acute kidney failure, unspecified; N18.9 - Chronic kidney disease, unspecified (2) COPD (chronic obstructive pulmonary disease) Code(s): J44.9 - CHRONIC OBSTRUCTIVE PULMONARY DISEASE, UNSPECIFIED Qualifiers : COPD type: unspecified COPD Qualified Code(s): J44.9 - Chronic obstructive pulmonary disease, unspecified (3) Chronic hypoxemic respiratory failure Code(s): J96.11 - CHRONIC RESPIRATORY FAILURE WITH HYPOXIA (4) Hyperkalemia Code(s): E87.5 - HYPERKALEMIA (5) Hypoxia Code(s): R09.02 - HYPOXEMIA (6) Leukocytosis Code(s): D72.829 - ELEVATED WHITE BLOOD CELL COUNT, UNSPECIFIED Qualifiers: Leukocytosis type: other Qualified Code(s): D72.828 - Other elevated white blood cell count (7) Pneumonia Code(s): J18.9 - PNEUMONIA, UNSPECIFIED ORGANISM Qualifiers: Pneumonia type: due to unspecified organism Laterality: right Lung location: lower lobe of lung Qualified Code(s): J18.1 - Lobar pneumonia, unspecified organism (8) Breast CA Code(s): C50.919 - MALIGNANT NEOPLASM OF UNSP SITE OF UNSPECIFIED FEMALE BREAST (9) CAD (coronary artery disease) Code(s): I25.10 - ATHSCL HEART DISEASE OF [place] CORONARY ARTERY W/O ANG PCTRS Qualifiers: Coronary Disease-Associated Artery/Lesion type: [place] artery [place] vs. transplanted heart: [place] heart Associated angina: without angina Qualified Code(s): I25.10 - Atherosclerotic heart disease of [place] coronary artery without angina pectoris Assessment/Plan Current Medications Generic Name Dose Route Start Last Admin Trade Name Freq PRN Reason Stop Dose Admin Acetaminophen 650 mg 08/02/16 13:44 08/04/16 10:44 Tylenol - PO 650 mg Q4H PRN Administration FEVER OR PAIN Albuterol/Ipratropium 1 amp 08/02/16 18:00 08/04/16 11:14 Duoneb - NEB 1 amp QIDR NURIS Administration Budesonide/Formoterol Fumarate 2 puff 08/02/16 22:00 08/04/16 09:49 Symbicort 160/4.5mcg - IH 2 puff BID NURIS Administration Carvedilol 12.5 mg 08/02/16 22:00 08/04/16 09:50 Coreg - PO 12.5 mg BID NURIS Administration Cholecalciferol 1,000 unit 08/03/16 10:00 08/04/16 09:51 Vitamin D3 - PO 1,000 unit DAILY NURIS Administration Citalopram Hydrobromide 40 mg 08/03/16 10:00 08/04/16 09:50 Celexa - PO 40 mg DAILY NURIS Administration Docusate Sodium 100 mg 08/03/16 22:00 08/04/16 06:34 Colace - PO Not Given TID NURIS Fluconazole 100 mg 08/03/16 10:00 08/04/16 09:50 Diflucan - PO 100 mg DAILY NURIS Administration Levofloxacin 250 mg 08/04/16 12:30 08/04/16 12:46 Levaquin - PO 250 mg Q2D@0600 NURIS Administration Levothyroxine Sodium 88 mcg 08/03/16 07:00 08/04/16 06:34 Synthroid - PO 88 mcg DAILY@0700 NURIS Administration Oxycodone HCl 5 mg 08/03/16 16:44 08/04/16 10:44 Roxicodone - PO 5 mg Q4H PRN Administration PAIN Pantoprazole Sodium 40 mg 08/04/16 10:00 08/04/16 09:50 Protonix - PO 40 mg DAILY NURIS Administration Prednisone 40 mg 08/05/16 10:00 Deltasone - PO DAILY NURIS Impression 1. CKD 2. FRANK 3. hyperkalemia 4. CAD with cardiac stents 5. HTN 6. Hyperlipidemia 7. Hypothyroidism 8. H/O Breast 9. Lung Ca 10. Anemia 11. sepsis 12. PNA 13. hypernatremia Plan - renal function is improving - monitor bmp - pt will follow with her outside head coach after discharge - sodium is stabilized - monitor pulse ox - will follow pt Dr Schilling
[2016-08-04 16:10] LABS: MCH 29.1 pg (25.7-33.7); MCHC 32.2 g/dl (32.0-36.0); MEAN CELL VOLUME 90.4 fl (80-96); MEAN PLT VOLUME 7.6 fl (7.5-11.1); PLATELET COUNT 348 K/MM3 (134-434); RDW 15.8 % (11.6-15.6); WHITE BLOOD COUNT 18.7 K/mm3 (4.0-10.0)
--- NOTE | 2016-08-04 18:16 | PN ---
Progress Note, Physician Chief Complaint: Weakness and fatigue SOB Atypical chest pain History of Present Illness: Patient came in the hospital for PNE, Pleural effusion, dehydration and leukocytosis. Patient lying in bed comfortably, Feels better. H/H dropped, guaiac positive but EGD negative for obvious bleeding. 1 unit PRBC ordered. Repeat CBC at 2200 and 0600. Pantoprazole changed to IV for time being. Repeat iron studies. - Current Medication List Current Medications: Active Medications Acetaminophen (Tylenol -) 650 mg PO Q4H PRN PRN Reason: FEVER OR PAIN Last Admin: 08/04/16 17:33 Dose: 650 mg Albuterol/Ipratropium (Duoneb -) 1 amp NEB QIDR [facility] Last Admin: 08/04/16 17:23 Dose: Not Given Budesonide/Formoterol Fumarate (Symbicort 160/4.5mcg -) 2 puff IH BID [facility] Last Admin: 08/04/16 09:49 Dose: 2 puff Carvedilol (Coreg -) 12.5 mg PO BID [facility] Last Admin: 08/04/16 09:50 Dose: 12.5 mg Cholecalciferol (Vitamin D3 -) 1,000 unit PO DAILY [facility] Last Admin: 08/04/16 09:51 Dose: 1,000 unit Citalopram Hydrobromide (Celexa -) 40 mg PO DAILY [facility] Last Admin: 08/04/16 09:50 Dose: 40 mg Docusate Sodium (Colace -) 100 mg PO TID [facility] Last Admin: 08/04/16 16:09 Dose: Not Given Fluconazole (Diflucan -) 100 mg PO DAILY [facility] Last Admin: 08/04/16 09:50 Dose: 100 mg Levofloxacin (Levaquin -) 250 mg PO Q2D@0600 [facility] Last Admin: 08/04/16 12:46 Dose: 250 mg Levothyroxine Sodium (Synthroid -) 88 mcg PO DAILY@0700 [facility] Last Admin: 08/04/16 06:34 Dose: 88 mcg Oxycodone HCl (Roxicodone -) 5 mg PO Q4H PRN PRN Reason: PAIN Last Admin: 08/04/16 17:32 Dose: 5 mg Pantoprazole Sodium (Protonix -) 40 mg PO DAILY [facility] Last Admin: 08/04/16 09:50 Dose: 40 mg Prednisone (Deltasone -) 40 mg PO DAILY NURIS - Objective Vital Signs: Vital Signs Temperature 98.9 F 08/04/16 14:01 Pulse Rate 89 08/04/16 14:01 Respiratory Rate 18 08/04/16 14:01 Blood Pressure 116/64 08/04/16 14:01 O2 Sat by Pulse Oximetry (%) 90 L 08/04/16 11:13 Constitutional: Yes: Well Nourished, No Distress, Calm Cardiovascular: Yes: Regular Rate and Rhythm Respiratory: Yes: Regular Gastrointestinal: Yes: Normal Bowel Sounds Edema: No Neurological: Yes: Alert, Oriented Labs: CBC, BMP 08/04/16 14:50 08/03/16 05:35 INR, PTT INR 1.07 (0.82-1.09) 07/31/16 05:50 Problem List - Problems (1) Acute on chronic renal failure Assessment/Plan: Renal on the case, renal status stable, IVF Code(s): N17.9 - ACUTE KIDNEY FAILURE, UNSPECIFIED N18.9 - CHRONIC KIDNEY DISEASE, UNSPECIFIED Qualifiers: Acute renal failure type: unspecified Chronic kidney disease stage: unspecified stage Qualified Code(s): N17.9 - Acute kidney failure, unspecified; N18.9 - Chronic kidney disease, unspecified (2) COPD (chronic obstructive pulmonary disease) Assessment/Plan: PULMONARY CONSULTS NEBULIZER TX O2 THERAPY NO CHANGES IN CXR Code(s): J44.9 - CHRONIC OBSTRUCTIVE PULMONARY DISEASE, UNSPECIFIED Qualifiers : COPD type: unspecified COPD Qualified Code(s): J44.9 - Chronic obstructive pulmonary disease, unspecified (3) Leukocytosis Assessment/Plan: SECONDARY TO STEROIDS. STABLE Code(s): D72.829 - ELEVATED WHITE BLOOD CELL COUNT, UNSPECIFIED Qualifiers: Leukocytosis type: other Qualified Code(s): D72.828 - Other elevated white blood cell count (4) Pneumonia Assessment/Plan: RESOLVED Code(s): J18.9 - PNEUMONIA, UNSPECIFIED ORGANISM Qualifiers: Pneumonia type: due to unspecified organism Laterality: right Lung location: lower lobe of lung Qualified Code(s): J18.1 - Lobar pneumonia, unspecified organism (5) Weakness Assessment/Plan: ORDERED PHYSICAL THERAPY. NURSING TO ENFORCE EARLY AMBULATION TOLERATED. Code(s): R53.1 - WEAKNESS (6) Anemia Assessment/Plan: SOURCE-LIKELY GI, MONITOR H/H, RECEIVED 2 UNITS OF PRBC, WILL GET 3RD TODAY, SPOKE TO PATIENT ABOUT COLONOSCOPY, HAD A BLEED POST LAST COLONOSCOPY LAST YEAR WITH 9 POLYPS. SHE AGREES TO PROCEDURE IF NEEDED. HAPTOGLOBIN HIGH- SECONDARY TO INFLAMMATION/INFECTION? Code(s): D64.9 - ANEMIA, UNSPECIFIED Qualifiers: Anemia type: due to other cause Other causes of anemia: chronic disease , kidney Assessment/Plan Colonoscopy? PRBC MONITOR H/H OFF TELE.
--- NOTE | 2016-08-04 19:42 | PN ---
Progress Note (short form) - Note Progress Note: Continued drop in H/H Continued heme eval I did discuss colonoscopy with Ms. Jansen again for tomorrow. She is amenable to the proceure Problem List - Problems (1) Anemia Code(s): D64.9 - ANEMIA, UNSPECIFIED Qualifiers: Anemia type: due to other cause Other causes of anemia: chronic disease , kidney
[2016-08-04] MEDS ORDERED: PEG3350/SOD SULF,BICARB,CL/KCL 4,000 ML SOLN.RECON PO STA (19:44)
[2016-08-04 22:03] LABS: BASOPHIL 0.3 % (0-2.0); EOSINOPHIL 1.7 % (0-4.5); MCH 29.3 pg (25.7-33.7); MCHC 32.5 g/dl (32.0-36.0); MEAN CELL VOLUME 90.1 fl (80-96); MEAN PLT VOLUME 7.3 fl (7.5-11.1); PLATELET COUNT 312 K/MM3 (134-434); RDW 15.5 % (11.6-15.6)
--- NOTE | 2016-08-04 22:16 | PN ---
Progress Note (short form) - Note Progress Note: PAtient seen and examined DEnies any complaints AFVSS Cor: RSR, No murmurs, No gallops Lungs: Clear to P&A Abd: Soft, Normal bowel sounds, No organomegaly Ext:No significant edema Labs/meds reviewed A/P 76 y/o patient with h/o breast Cancer --treated by --originally 8 yrs. ago s/p lumpectomy/RT/tamoxifen x 5yrs. ?? recurrence vs lung primary ---?? mediastinum --s/p chemo /RT in 2013 was on [place] /cis for 8 cycles then switched to gemzaar --bolton s been off therapy Has cisplatin induced neuropathy/CKD Bone scan this admission showed no e/o disease Now with pneumonia. CT scans--RLL peumonia/spheoid sinusitis/COPD Also gi bleed? On protonix for colonoscopy LDH --nl. ,haptoglobin --nl , hence hemolysis unlikely awaiting iron studies to consider IV iron
[2016-08-05] MEDS ORDERED: FUROSEMIDE 40 MG/4 ML INJECTABLE VIAL ONE (04:25)
[2016-08-05 06:07] LABS: HEMATOCRIT 23.7 % (34.0-46.6)
[2016-08-05] MEDS: DOCUSATE SODIUM 100 MG CAPSULE (FP) PO SCH ×2 (06:31→13:25)
[2016-08-05] MEDS: LEVOTHYROXINE NA 88 MCG TABLET (FP) PO SCH (06:32)
[2016-08-05] MEDS: oxyCODONE HCL 5 MG TABLET PO PRN ×2 (06:35→13:29)
[2016-08-05] MEDS: ACETAMINOPHEN 325 MG TABLET (FP) PO PRN (06:39)
[2016-08-05] MEDS: ALBUTEROL SO4 2.5/IPRATROPIUM 0.5 INH SOL 3 ML VIAL.NEB. NEB SCH ×2 (06:50→12:36)
[2016-08-05 07:37] LABS: BASOPHIL 0.2 % (0-2.0); EOSINOPHIL 2.9 % (0-4.5); MCH 30.8 pg (25.7-33.7); MCHC 34.4 g/dl (32.0-36.0); MEAN CELL VOLUME 89.5 fl (80-96); MEAN PLT VOLUME 7.2 fl (7.5-11.1); NEUTROPHILS 84.5 % (42.8-82.8); PLATELET COUNT 319 K/MM3 (134-434); WHITE BLOOD COUNT 19.5 K/mm3 (4.0-10.0)
[2016-08-05 08:00] LABS: ALBUMIN 2.2 g/dl (3.4-5.0); CALCIUM 8.2 mg/dL (8.5-10.1)
[2016-08-05 08:02] LABS: BILIRUBIN,TOTAL 0.8 mg/dL (0.2-1.0); COCKROFT - GAULT 17.51; CREATININE 1.8 mg/dL (0.55-1.02); TOT PROT 5.3 g/dl (6.4-8.2)
[2016-08-05] MEDS: BUDESONIDE/FORMETEROL FUMARATE 160/4.5 mcg INHALER IH SCH ×2 (09:01→09:44)
[2016-08-05] MEDS: CHOLECALCIFEROL (VITAMIN D3) 1,000 UNIT TABLET (FP) PO SCH (09:43)
[2016-08-05] MEDS: CITALOPRAM HYDROBROMIDE 20 MG TABLET (FP) PO SCH (09:43)
[2016-08-05] MEDS: PANTOPRAZOLE 40 MG TABLET (FP) PO SCH (09:43)
[2016-08-05] MEDS: CARVEDILOL 12.5 MG TABLET (FP) PO SCH (09:43)
[2016-08-05] MEDS: FLUCONAZOLE 100 MG TABLET (UD) PO SCH (09:44)
[2016-08-05] MEDS ORDERED: predniSONE 20 MG TABLET (UD) PO SCH (10:00)
--- NOTE | 2016-08-05 10:44 | PN ---
Progress Note, Physician Chief Complaint: Weakness and fatigue SOB Atypical chest pain History of Present Illness: Patient came in the hospital for PNE, Pleural effusion, dehydration and leukocytosis. Patient lying in bed comfortably, Feels better. H/H dropped, guaiac positive but EGD negative for obvious bleeding. 1 unit PRBC ordered. Repeat CBC at 2200 and 0600. Pantoprazole changed to IV for time being. Repeat iron studies. - Current Medication List Current Medications: Active Medications Acetaminophen (Tylenol -) 650 mg PO Q4H PRN PRN Reason: FEVER OR PAIN Last Admin: 08/05/16 06:39 Dose: 650 mg Albuterol/Ipratropium (Duoneb -) 1 amp NEB QIDR [facility] Last Admin: 08/05/16 06:50 Dose: 1 amp Budesonide/Formoterol Fumarate (Symbicort 160/4.5mcg -) 2 puff IH BID [facility] Last Admin: 08/05/16 09:44 Dose: 2 puff Carvedilol (Coreg -) 12.5 mg PO BID [facility] Last Admin: 08/05/16 09:43 Dose: 12.5 mg Cholecalciferol (Vitamin D3 -) 1,000 unit PO DAILY [facility] Last Admin: 08/05/16 09:43 Dose: 1,000 unit Citalopram Hydrobromide (Celexa -) 40 mg PO DAILY [facility] Last Admin: 08/05/16 09:43 Dose: 40 mg Docusate Sodium (Colace -) 100 mg PO TID [facility] Last Admin: 08/05/16 06:31 Dose: Not Given Fluconazole (Diflucan -) 100 mg PO DAILY [facility] Last Admin: 08/05/16 09:44 Dose: 100 mg Iron Sucrose 200 mg/ Sodium (Chloride) 250 mls @ 250 mls/hr IVPB ONCE ONE Stop: 08/05/16 10:52 Levofloxacin (Levaquin -) 250 mg PO Q2D@0600 [facility] Last Admin: 08/04/16 12:46 Dose: 250 mg Levothyroxine Sodium (Synthroid -) 88 mcg PO DAILY@0700 [facility] Last Admin: 08/05/16 06:32 Dose: 88 mcg Oxycodone HCl (Roxicodone -) 5 mg PO Q4H PRN PRN Reason: PAIN Last Admin: 08/05/16 06:35 Dose: 5 mg Pantoprazole Sodium (Protonix -) 40 mg PO DAILY [facility] Last Admin: 08/05/16 09:43 Dose: 40 mg Prednisone (Deltasone -) 40 mg PO DAILY [facility] Last Admin: 08/05/16 09:43 Dose: 40 mg - Objective Vital Signs: Vital Signs Temperature 98 F 08/05/16 09:05 Pulse Rate 74 08/05/16 09:05 Respiratory Rate 20 08/05/16 09:05 Blood Pressure 147/82 08/05/16 09:05 O2 Sat by Pulse Oximetry (%) 95 08/05/16 09:05 Constitutional: Yes: Well Nourished, No Distress, Calm Cardiovascular: Yes: Regular Rate and Rhythm Gastrointestinal: Yes: Normal Bowel Sounds Musculoskeletal: Yes: Muscle Weakness Edema: No Neurological: Yes: Alert, Oriented Psychiatric: Yes: Alert Labs: CBC, BMP 08/05/16 05:38 08/05/16 05:38 INR, PTT INR 1.07 (0.82-1.09) 07/31/16 05:50 Problem List - Problems (1) Acute on chronic renal failure Assessment/Plan: Renal on the case, renal status stable. Code(s): N17.9 - ACUTE KIDNEY FAILURE, UNSPECIFIED N18.9 - CHRONIC KIDNEY DISEASE, UNSPECIFIED Qualifiers: Acute renal failure type: unspecified Chronic kidney disease stage: unspecified stage Qualified Code(s): N17.9 - Acute kidney failure, unspecified; N18.9 - Chronic kidney disease, unspecified (2) COPD (chronic obstructive pulmonary disease) Assessment/Plan: PULMONARY CONSULTS NEBULIZER TX O2 THERAPY NO CHANGES IN CXR USES O2 AT HOME WELL, NEEDS RE-CERTIFICATION, PRE/POST EXERCISE O2 ORDERED Code(s): J44.9 - CHRONIC OBSTRUCTIVE PULMONARY DISEASE, UNSPECIFIED Qualifiers : COPD type: unspecified COPD Qualified Code(s): J44.9 - Chronic obstructive pulmonary disease, unspecified (3) Leukocytosis Assessment/Plan: SECONDARY TO STEROIDS. STABLE Code(s): D72.829 - ELEVATED WHITE BLOOD CELL COUNT, UNSPECIFIED Qualifiers: Leukocytosis type: other Qualified Code(s): D72.828 - Other elevated white blood cell count (4) Weakness Code(s): R53.1 - WEAKNESS (5) Anemia Assessment/Plan: SOURCE-LIKELY GI, MONITOR H/H, RECEIVED 3 UNITS OF PRBC IN TOTAL, PATIENT WAS UNABLE TO DO THE PREP FOR COLONOSCOPY. WILL DO COLONOSCOPY OUTPATIENT HAPTOGLOBIN HIGH- SECONDARY TO INFLAMMATION/INFECTION? WAS EVALUATED BY HEMATOLOGY WILL GO HOME WITH VNS AND PHYSICAL THERAPY. Code(s): D64.9 - ANEMIA, UNSPECIFIED Qualifiers: Anemia type: due to other cause Other causes of anemia: chronic disease , kidney Assessment/Plan SOURCE-LIKELY GI, MONITOR H/H, RECEIVED 3 UNITS OF PRBC IN TOTAL, PATIENT WAS UNABLE TO DO THE PREP FOR COLONOSCOPY. WILL DO COLONOSCOPY OUTPATIENT HAPTOGLOBIN HIGH- SECONDARY TO INFLAMMATION/INFECTION? WAS EVALUATED BY HEMATOLOGY WILL GO HOME WITH VNS AND PHYSICAL THERAPY.
--- NOTE | 2016-08-05 11:22 | PN ---
Progress Note, Physician History of Present Illness: pulmonary alert,nad,-sob. h+h stable - Current Medication List Current Medications: Active Medications Acetaminophen (Tylenol -) 650 mg PO Q4H PRN PRN Reason: FEVER OR PAIN Last Admin: 08/05/16 06:39 Dose: 650 mg Albuterol/Ipratropium (Duoneb -) 1 amp NEB QIDR [facility] Last Admin: 08/05/16 06:50 Dose: 1 amp Budesonide/Formoterol Fumarate (Symbicort 160/4.5mcg -) 2 puff IH BID [facility] Last Admin: 08/05/16 09:44 Dose: 2 puff Carvedilol (Coreg -) 12.5 mg PO BID [facility] Last Admin: 08/05/16 09:43 Dose: 12.5 mg Cholecalciferol (Vitamin D3 -) 1,000 unit PO DAILY [facility] Last Admin: 08/05/16 09:43 Dose: 1,000 unit Citalopram Hydrobromide (Celexa -) 40 mg PO DAILY [facility] Last Admin: 08/05/16 09:43 Dose: 40 mg Docusate Sodium (Colace -) 100 mg PO TID [facility] Last Admin: 08/05/16 06:31 Dose: Not Given Fluconazole (Diflucan -) 100 mg PO DAILY [facility] Last Admin: 08/05/16 09:44 Dose: 100 mg Iron Sucrose 200 mg/ Sodium (Chloride) 110 mls @ 220 mls/hr IVPB ONCE ONE Stop: 08/05/16 12:29 Levofloxacin (Levaquin -) 250 mg PO Q2D@0600 [facility] Last Admin: 08/04/16 12:46 Dose: 250 mg Levothyroxine Sodium (Synthroid -) 88 mcg PO DAILY@0700 [facility] Last Admin: 08/05/16 06:32 Dose: 88 mcg Oxycodone HCl (Roxicodone -) 5 mg PO Q4H PRN PRN Reason: PAIN Last Admin: 08/05/16 06:35 Dose: 5 mg Pantoprazole Sodium (Protonix -) 40 mg PO DAILY [facility] Last Admin: 08/05/16 09:43 Dose: 40 mg Prednisone (Deltasone -) 40 mg PO DAILY [facility] Last Admin: 08/05/16 09:43 Dose: 40 mg - Objective Vital Signs: Vital Signs Temperature 98 F 08/05/16 09:05 Pulse Rate 74 08/05/16 09:05 Respiratory Rate 20 08/05/16 09:05 Blood Pressure 147/82 08/05/16 09:05 O2 Sat by Pulse Oximetry (%) 95 08/05/16 09:05 Constitutional: Yes: Calm, Thin Eyes: Yes: WNL HENT: Yes: WNL Neck: Yes: WNL Cardiovascular: Yes: Regular Rate and Rhythm, S1, S2 Respiratory: Yes: Diminished Gastrointestinal: Yes: Normal Bowel Sounds, Soft Extremities: Yes: WNL Edema: No Labs: CBC, BMP 08/05/16 05:38 08/05/16 05:38 INR, PTT INR 1.07 (0.82-1.09) 07/31/16 05:50 Problem List - Problems (1) Acute on chronic renal failure Code(s): N17.9 - ACUTE KIDNEY FAILURE, UNSPECIFIED N18.9 - CHRONIC KIDNEY DISEASE, UNSPECIFIED Qualifiers: Acute renal failure type: unspecified Chronic kidney disease stage: unspecified stage Qualified Code(s): N17.9 - Acute kidney failure, unspecified; N18.9 - Chronic kidney disease, unspecified (2) COPD (chronic obstructive pulmonary disease) Code(s): J44.9 - CHRONIC OBSTRUCTIVE PULMONARY DISEASE, UNSPECIFIED Qualifiers : COPD type: unspecified COPD Qualified Code(s): J44.9 - Chronic obstructive pulmonary disease, unspecified (3) Hypoxia Code(s): R09.02 - HYPOXEMIA (4) Pneumonia Code(s): J18.9 - PNEUMONIA, UNSPECIFIED ORGANISM Qualifiers: Pneumonia type: due to unspecified organism Laterality: right Lung location: lower lobe of lung Qualified Code(s): J18.1 - Lobar pneumonia, unspecified organism (5) Status post fall Code(s): Z91.89 - OTH PERSONAL RISK FACTORS, NOT ELSEWHERE CLASSIFIED (6) ASHD (arteriosclerotic heart disease) Code(s): I25.10 - ATHSCL HEART DISEASE OF [place] CORONARY ARTERY W/O ANG PCTRS (7) Aortic stenosis Code(s): I35.0 - NONRHEUMATIC AORTIC (VALVE) STENOSIS Qualifiers: Cardiac valve disease etiology: nonrheumatic Qualified Code(s): I35.0 - Nonrheumatic aortic (valve) stenosis (8) Breast CA Code(s): C50.919 - MALIGNANT NEOPLASM OF UNSP SITE OF UNSPECIFIED FEMALE BREAST (9) CAD (coronary artery disease) Code(s): I25.10 - ATHSCL HEART DISEASE OF [place] CORONARY ARTERY W/O ANG PCTRS Qualifiers: Coronary Disease-Associated Artery/Lesion type: [place] artery [place] vs. transplanted heart: [place] heart Associated angina: without angina Qualified Code(s): I25.10 - Atherosclerotic heart disease of [place] coronary artery without angina pectoris (10) Lung cancer Code(s): C34.90 - MALIGNANT NEOPLASM OF UNSP PART OF UNSP BRONCHUS OR LUNG Qualifiers: Lung location: unspecified part of lung (11) S/P coronary artery stent placement Code(s): Z95.5 - PRESENCE OF CORONARY ANGIOPLASTY IMPLANT AND GRAFT (12) Chronic hypoxemic respiratory failure Code(s): J96.11 - CHRONIC RESPIRATORY FAILURE WITH HYPOXIA (13) Anemia Code(s): D64.9 - ANEMIA, UNSPECIFIED Qualifiers: Anemia type: due to other cause Other causes of anemia: chronic disease , kidney (14) GI bleed Code(s): K92.2 - GASTROINTESTINAL HEMORRHAGE, UNSPECIFIED Qualifiers: GI bleed type/associated pathology: unspecified gastrointestinal hemorrhage type Qualified Code(s): K92.2 - Gastrointestinal hemorrhage, unspecified Assessment/Plan Problem List - Problems (1) Acute on chronic renal failure Assessment/Plan: Code(s): N17.9 - ACUTE KIDNEY FAILURE, UNSPECIFIED N18.9 - CHRONIC KIDNEY DISEASE, UNSPECIFIED Qualifiers: Acute renal failure type: unspecified Chronic kidney disease stage: unspecified stage Qualified Code(s): N17.9 - Acute kidney failure, unspecified; N18.9 - Chronic kidney disease, unspecified (2) COPD (chronic obstructive pulmonary disease) Assessment/Plan: Code(s): J44.9 - CHRONIC OBSTRUCTIVE PULMONARY DISEASE, UNSPECIFIED Qualifiers : COPD type: unspecified COPD Qualified Code(s): J44.9 - Chronic obstructive pulmonary disease, unspecified (3) Leukocytosis Assessment/Plan: Code(s): D72.829 - ELEVATED WHITE BLOOD CELL COUNT, UNSPECIFIED Qualifiers: Leukocytosis type: other Qualified Code(s): D72.828 - Other elevated white blood cell count (4) Pneumonia Assessment/Plan: Code(s): J18.9 - PNEUMONIA, UNSPECIFIED ORGANISM Qualifiers: Pneumonia type: due to unspecified organism Laterality: right Lung location: lower lobe of lung Qualified Code(s): J18.1 - Lobar pneumonia, unspecified organism (5) CHF (congestive heart failure) Assessment/Plan: Code(s): I50.9 - HEART FAILURE, UNSPECIFIED (6) Lung cancer Code(s): C34.90 - MALIGNANT NEOPLASM OF UNSP PART OF UNSP BRONCHUS OR LUNG Qualifiers: Lung location: unspecified part of lung 7 GI BLEED PLAN: PREDNISONE BD TX O2 as needed transfuse an needed VTE prophylaxis monitor h+h,renal function colonoscopy as outpatient DR ALVAREZ
[2016-08-05] MEDS ORDERED: IRON SUCROSE INJECTION 200 MG in SODIUM CHLORIDE 100 ML IVPB ONE (12:00)
[2016-08-05 15:01] VITALS: BP 146/90; PULSE 82; TEMP 97.3
--- NOTE | 2016-08-05 15:10 | DS ---
Physical Examination Vital Signs: Vital Signs Temperature 97.3 F L 08/05/16 14:56 Pulse Rate 82 08/05/16 14:56 Respiratory Rate 20 08/05/16 09:05 Blood Pressure 146/90 08/05/16 14:56 O2 Sat by Pulse Oximetry (%) 95 08/05/16 09:05 Constitutional: Yes: Well Nourished, No Distress, Calm Cardiovascular: Yes: Regular Rate and Rhythm Respiratory: Yes: Regular Gastrointestinal: Yes: Normal Bowel Sounds Musculoskeletal: Yes: Muscle Weakness Edema: No Peripheral Pulses WNL: Yes Neurological: Yes: Alert, Oriented ...Motor Strength: LUE (GENERALIZED WEAKNESS), LLE, RUE, RLE Psychiatric: Yes: Alert, Oriented Labs: CBC, BMP 08/05/16 05:38 08/05/16 05:38 Discharge Summary Reason For Visit: LEUKOCYTOSIS HYPOXIA COPD Current Active Problems Acute on chronic renal failure (Acute) COPD (chronic obstructive pulmonary disease) (Acute) Chronic hypoxemic respiratory failure (Acute) Duodenal arteriovenous malformation (Acute) Hyperkalemia (Acute) Hypoxia (Acute) Leukocytosis (Acute) Pneumonia (Acute) Status post fall (Acute) Weakness (Acute) Procedures: Principal: EGD Hospital Course: Patient originally came in to the hospital for fall secondary to weakness was found to have community acquired PNE. She was treated with IV antibiotics. She is dependent on Oxygen at home due to her history of COPD. She also has a history of aortic stenosis, CAD s/p stent and PCI, HTN, HLD, mitral insufficiency, pulmonary HTN, COPD, small cell carcinoma treated with chemotherapy, lung CA O2 dependent, renal failure, chronic lower back pain, and hypothyroidism. Over the course of her hospitalization, she was seen by Renal, Cardiology, Pulmonary, Oncology/Hematology. She also developed anemia with Guaiac positive, was given 3 units of PRBC. She had EGD x 2 with obvious bleeding from her upper GI. Her last colonoscopy was in [address] Reyes. As per patient, she had 9 polyps that were removed and she also bled post-colonoscopy, which was thought the reason of her acute anemia while in the hospital. She was unable to do the colon prep in the hospital, so it was decided to do colonoscopy as outpatient. Patient refused to go to SNF, wanted to go home with VNS and Physical therapy services. She is aware to follow up with us and GI as outpatient in 1 week. Condition: Stable - Instructions Diet, Activity, Other Instructions: Low sodium diet Call Dr Eric Yepez for follow up within 1 week Follow up with Dr Isaiah Thompson or Jamel Duncan at [phone] Referrals: Isaiah Thompson MD [Primary Care Provider] - - Home Medications Comprehensive Discharge Medication List: Ambulatory Orders Furosemide [Lasix] 40 mg PO DAILY 07/26/16 Acetaminophen [Tylenol .Regular Strength -] 650 mg PO Q4H PRN #0 tablet Albuterol 2.5/Ipratropium 0.5 [Duoneb -] 1 amp NEB QIDR amp 08/05/16 Budesonide/Formeterol Fumarate [SYMBICORT 160/4.5mcg -] 2 puff IH BID #1 inhaler 08/05/16 Carvedilol [Coreg -] 12.5 mg PO BID tablet 08/05/16 Cholecalciferol (Vitamin D3) [Vitamin D3 -] 1,000 unit PO DAILY tab 08/05/16 Citalopram Hydrobromide [Celexa -] 40 mg PO DAILY tablet 08/05/16 Docusate Sodium [Colace -] 100 mg PO TID #90 tab 08/05/16 Levothyroxine [Synthroid -] 88 mcg PO DAILY@0700 tablet 08/05/16 Oxycodone HCl [Roxicodone -] 5 mg PO Q4H PRN #0 tablet MDD 6 08/05/16 Pantoprazole Sodium [Protonix -] 40 mg PO DAILY #30 tab 08/05/16 Prednisone [Deltasone -] 10 mg PO DAILY #30 tablet 08/05/16
--- NOTE | 2016-08-05 15:15 | PN ---
Progress Note, Physician History of Present Illness: Pt seen and examined at bedside. She is awake and alert. She says she feels better and is eager to go home. - Current Medication List Current Medications: Active Medications Acetaminophen (Tylenol -) 650 mg PO Q4H PRN PRN Reason: FEVER OR PAIN Last Admin: 08/05/16 06:39 Dose: 650 mg Albuterol/Ipratropium (Duoneb -) 1 amp NEB QIDR [facility] Last Admin: 08/05/16 12:36 Dose: Not Given Budesonide/Formoterol Fumarate (Symbicort 160/4.5mcg -) 2 puff IH BID [facility] Last Admin: 08/05/16 09:44 Dose: 2 puff Carvedilol (Coreg -) 12.5 mg PO BID [facility] Last Admin: 08/05/16 09:43 Dose: 12.5 mg Cholecalciferol (Vitamin D3 -) 1,000 unit PO DAILY [facility] Last Admin: 08/05/16 09:43 Dose: 1,000 unit Citalopram Hydrobromide (Celexa -) 40 mg PO DAILY [facility] Last Admin: 08/05/16 09:43 Dose: 40 mg Docusate Sodium (Colace -) 100 mg PO TID [facility] Last Admin: 08/05/16 13:25 Dose: Not Given Fluconazole (Diflucan -) 100 mg PO DAILY [facility] Last Admin: 08/05/16 09:44 Dose: 100 mg Levofloxacin (Levaquin -) 250 mg PO Q2D@0600 [facility] Last Admin: 08/04/16 12:46 Dose: 250 mg Levothyroxine Sodium (Synthroid -) 88 mcg PO DAILY@0700 [facility] Last Admin: 08/05/16 06:32 Dose: 88 mcg Oxycodone HCl (Roxicodone -) 5 mg PO Q4H PRN PRN Reason: PAIN Last Admin: 08/05/16 13:29 Dose: 5 mg Pantoprazole Sodium (Protonix -) 40 mg PO DAILY [facility] Last Admin: 08/05/16 09:43 Dose: 40 mg Prednisone (Deltasone -) 40 mg PO DAILY [facility] Last Admin: 08/05/16 09:43 Dose: 40 mg - Objective Vital Signs: Vital Signs Temperature 97.3 F L 08/05/16 14:56 Pulse Rate 82 08/05/16 14:56 Respiratory Rate 20 08/05/16 09:05 Blood Pressure 146/90 08/05/16 14:56 O2 Sat by Pulse Oximetry (%) 95 08/05/16 09:05 Constitutional: Yes: Calm Eyes: Yes: Conjunctiva Clear HENT: Yes: Atraumatic Neck: Yes: Supple Cardiovascular: Yes: S1, S2 Respiratory: Yes: CTA Bilaterally Gastrointestinal: Yes: Normal Bowel Sounds, Soft Genitourinary: Yes: WNL Musculoskeletal: Yes: WNL Edema: No Neurological: Yes: Oriented Psychiatric: Yes: Oriented Labs: CBC, BMP 08/05/16 05:38 08/05/16 05:38 INR, PTT INR 1.07 (0.82-1.09) 07/31/16 05:50 Problem List - Problems (1) Acute on chronic renal failure Code(s): N17.9 - ACUTE KIDNEY FAILURE, UNSPECIFIED N18.9 - CHRONIC KIDNEY DISEASE, UNSPECIFIED Qualifiers: Acute renal failure type: unspecified Chronic kidney disease stage: unspecified stage Qualified Code(s): N17.9 - Acute kidney failure, unspecified; N18.9 - Chronic kidney disease, unspecified (2) COPD (chronic obstructive pulmonary disease) Code(s): J44.9 - CHRONIC OBSTRUCTIVE PULMONARY DISEASE, UNSPECIFIED Qualifiers : COPD type: unspecified COPD Qualified Code(s): J44.9 - Chronic obstructive pulmonary disease, unspecified (3) Chronic hypoxemic respiratory failure Code(s): J96.11 - CHRONIC RESPIRATORY FAILURE WITH HYPOXIA (4) Hyperkalemia Code(s): E87.5 - HYPERKALEMIA (5) Hypoxia Code(s): R09.02 - HYPOXEMIA (6) Leukocytosis Code(s): D72.829 - ELEVATED WHITE BLOOD CELL COUNT, UNSPECIFIED Qualifiers: Leukocytosis type: other Qualified Code(s): D72.828 - Other elevated white blood cell count (7) Pneumonia Code(s): J18.9 - PNEUMONIA, UNSPECIFIED ORGANISM Qualifiers: Pneumonia type: due to unspecified organism Laterality: right Lung location: lower lobe of lung Qualified Code(s): J18.1 - Lobar pneumonia, unspecified organism (8) Breast CA Code(s): C50.919 - MALIGNANT NEOPLASM OF UNSP SITE OF UNSPECIFIED FEMALE BREAST (9) CAD (coronary artery disease) Code(s): I25.10 - ATHSCL HEART DISEASE OF OSAGE CORONARY ARTERY W/O ANG PCTRS Qualifiers: Coronary Disease-Associated Artery/Lesion type: ch[place]kat artery [place] vs. transplanted heart: chilkat heart Associated angina: without angina Qualified Code(s): I25.10 - Atherosclerotic heart disease of [place] coronary artery without angina pectoris Assessment/Plan Current Medications Generic Name Dose Route Start Last Admin Trade Name Freq PRN Reason Stop Dose Admin Acetaminophen 650 mg 08/02/16 13:44 08/05/16 06:39 Tylenol - PO 650 mg Q4H PRN Administration FEVER OR PAIN Albuterol/Ipratropium 1 amp 08/02/16 18:00 08/05/16 12:36 Duoneb - NEB Not Given QIDR NURIS Budesonide/Formoterol Fumarate 2 puff 08/02/16 22:00 08/05/16 09:44 Symbicort 160/4.5mcg - IH 2 puff BID NURIS Administration Carvedilol 12.5 mg 08/02/16 22:00 08/05/16 09:43 Coreg - PO 12.5 mg BID NURIS Administration Cholecalciferol 1,000 unit 08/03/16 10:00 08/05/16 09:43 Vitamin D3 - PO 1,000 unit DAILY NURIS Administration Citalopram Hydrobromide 40 mg 08/03/16 10:00 08/05/16 09:43 Celexa - PO 40 mg DAILY NURIS Administration Docusate Sodium 100 mg 08/03/16 22:00 08/05/16 13:25 Colace - PO Not Given TID NURIS Fluconazole 100 mg 08/03/16 10:00 08/05/16 09:44 Diflucan - PO 100 mg DAILY NURIS Administration Levofloxacin 250 mg 08/04/16 12:30 08/04/16 12:46 Levaquin - PO 250 mg Q2D@0600 NURIS Administration Levothyroxine Sodium 88 mcg 08/03/16 07:00 08/05/16 06:32 Synthroid - PO 88 mcg DAILY@0700 NURIS Administration Oxycodone HCl 5 mg 08/03/16 16:44 08/05/16 13:29 Roxicodone - PO 5 mg Q4H PRN Administration PAIN Pantoprazole Sodium 40 mg 08/04/16 10:00 08/05/16 09:43 Protonix - PO 40 mg DAILY NURIS Administration Prednisone 40 mg 08/05/16 10:00 08/05/16 09:43 Deltasone - PO 40 mg DAILY NURIS Administration Impression 1. CKD 2. FRANK 3. hyperkalemia 4. CAD with cardiac stents 5. HTN 6. Hyperlipidemia 7. Hypothyroidism 8. H/O Breast 9. Lung Ca 10. Anemia 11. sepsis 12. PNA 13. hypernatremia Plan - renal function is at baseline - pt is currently getting iron supplements - pt to follow with her primary forepart rasper after discharge - sodium is stabilized - monitor pulse ox - will follow pt while in hospital Dr Schilling
[2016-08-05 15:41] LABS: MCH 29.7 pg (25.7-33.7); MCHC 32.9 g/dl (32.0-36.0); MEAN CELL VOLUME 90.4 fl (80-96); MEAN PLT VOLUME 7.8 fl (7.5-11.1); RDW 15.3 % (11.6-15.6)
[2016-08-05 18:48] LABS: ANISOCYTOSIS OCC; METAMYELOCYTE 2 % (0-2); PLATELET ESTIMATE ADEQUATE (NORMAL)
== END 2016-08-05 15:59 | disposition home or self-care (01) | DRG 682 ==
LOC: JER 17:45 → JERBED 07-27 03:57 → J5S 07-27 11:03 → JICU 07-31 09:23 → J4W 08-02 23:51 → JSAMEDAYSX 08-05 10:54 → J8W 08-05 10:55
PROVIDERS: ADMIT Family Medicine; ATTEND Family Medicine
PROC: 3E0F7GC Introduction of Other Therapeutic Substance into Respiratory Tract, Via Natural or Artificial Opening (ICD-10-PCS; 2016-07-27)
PROC: 30233N1 Transfusion of Nonautologous Red Blood Cells into Peripheral Vein, Percutaneous Approach (ICD-10-PCS; 2016-07-31)
PROC: 0DB68ZX Excision of Stomach, Via Natural or Artificial Opening Endoscopic, Diagnostic (ICD-10-PCS; 2016-08-02)
PROC: 0DB98ZX Excision of Duodenum, Via Natural or Artificial Opening Endoscopic, Diagnostic (ICD-10-PCS; principal; 2016-08-02 13:30)
DX: N17.9 Acute kidney failure, unspecified (principal); J18.9 Pneumonia, unspecified organism; I50.33 Acute on chronic diastolic (congestive) heart failure; J15.1 Pneumonia due to Pseudomonas; K92.2 Gastrointestinal hemorrhage, unspecified; J96.11 Chronic respiratory failure with hypoxia; C34.90 Malignant neoplasm of unspecified part of unspecified bronchus or lung; I13.0 Hypertensive heart and chronic kidney disease with heart failure and stage 1 through stage 4 chronic kidney disease, or unspecified chronic kidney disease; E87.0 Hyperosmolality and hypernatremia; J44.9 Chronic obstructive pulmonary disease, unspecified; E78.5 Hyperlipidemia, unspecified; Z98.61 Coronary angioplasty status; Z87.891 Personal history of nicotine dependence; D72.829 Elevated white blood cell count, unspecified; R53.1 Weakness; D64.9 Anemia, unspecified; I35.0 Nonrheumatic aortic (valve) stenosis; K29.50 Unspecified chronic gastritis without bleeding; K31.7 Polyp of stomach and duodenum; E86.0 Dehydration; N18.9 Chronic kidney disease, unspecified; I25.119 Atherosclerotic heart disease of native coronary artery with unspecified angina pectoris; Z85.3 Personal history of malignant neoplasm of breast; I27.2 Other secondary pulmonary hypertension; R07.89 Other chest pain; E87.5 Hyperkalemia; J32.9 Chronic sinusitis, unspecified; Z99.81 Dependence on supplemental oxygen; R55 Syncope and collapse; E03.9 Hypothyroidism, unspecified; R26.89 Other abnormalities of gait and mobility; I95.1 Orthostatic hypotension
CPT/HCPCS: 36415; 36430; 70450-TC; 71010-TC; 71250-TC; 73110-TC-LT; 76775-TC; 76856-TC; 78306-TC; 80048; 80053; 81003; 82272; 82378; 82436; 82550; 82570; 82607; 82728; 82747; 83010; 83540; 83550; 83615; 83735; 84133; 84300; 84484; 85014; 85025; 85027; 85044; 85610; 86850; 86900; 86901; 86922; 87040; 87070; 87086; 87186; 87205; 87324; 87449; 87899; 88305-TC; 93005; 93010; 94640; 94761; 97116-GP; 97161-GP; 99285-25; A9503; G0480; J1644; J1756; P9038; P9058

== ENCOUNTER 2016-08-17 12:45 | Inpatient (IN) | payer OTHER, MEDICARE ==
[2016-08-17 12:54] VITALS: BMI 16.6
[2016-08-17 15:26] LABS: BASOPHIL 1.4 % (0-2.0); EOSINOPHIL 7.1 % (0-4.5); MCH 29.6 pg (25.7-33.7); MCHC 32.3 g/dl (32.0-36.0); MEAN CELL VOLUME 91.4 fl (80-96); MEAN PLT VOLUME 7.7 fl (7.5-11.1); NEUTROPHILS 66.7 % (42.8-82.8); PLATELET COUNT 161 K/MM3 (134-434); RDW 15.9 % (11.6-15.6); WHITE BLOOD COUNT 6.2 K/mm3 (4.0-10.0)
--- NOTE | 2016-08-17 15:33 | PDOC ---
History of Present Illness - General History Source: Patient Exam Limitations: No Limitations - History of Present Illness Initial Comments: 08/17/16 15:33 The patient is a 76 year old female, with a significant past medical history of aortic stenosis, CAD s/p stent and PCI, HTN, HLD, mitral insufficiency, pulmonary HTN, COPD, small cell carcinoma s/p chemo, lung CA O2 dependent, renal failure, chronic lower back pain, and hypothyroidism who presents to the emergency department with left thumb pain and discoloration. Patient reports recently being admitted to the hospital for COPD and pneumonia. She reports shortly after her discharge having left thumb pain, erythema and dislocation, now noting her thumb turning black in color. She denies recent fevers, chills, headache or dizziness. She denies recent nausea, vomit, diarrhea or constipation. She denies recent dysuria, frequency, urgency or hematuria. She denies recent chest pain or shortness of breath. Allergies: NKA Past surgical history: See HPI Social history: Nonsmoker. Denies EtOH use and recreational drug use. Primary Care Physician: <Boone Justin - Last Filed: 08/17/16 15:33> <Rahul Marte - Last Filed: 08/22/16 07:20> - General Chief Complaint: Redness To Affected Area Stated Complaint: LEFT THUMB IS BLACK Time Seen by Provider: 08/17/16 13:08 Past History <Boone Justin - Last Filed: 08/17/16 15:33> - Past Medical History Anemia: Yes Asthma: No Cancer: Yes (Rt breast CA and lung CA - 2 primaries) Cardiac Disorders: Yes (ASHD S/P STENT) CVA: No COPD: Yes (O2 3L NC PRN.) CHF: No Dementia: No Diabetes: No GI Disorders: No Disorders: Yes (uti,renal insuff.) HTN: Yes Hypercholesterolemia: No Liver Disease: No Suicide Attempt (Hx): No Seizures: No Thyroid Disease: Yes (hypothyroidism, MULTIPLE NODULES) - Surgical History Abdominal Surgery: No Appendectomy: No Cardiac Surgery: Yes (STENT) Cholecystectomy: No Lung Surgery: Yes (LUNG BX, LUNG CA) Neurologic Surgery: No Orthopedic Surgery: Yes (CERVICAL, LUMBAR LAMINECTOMIES) - Immunization History Immunization Up to Date: Yes - Psycho/Social/Smoking Cessation Hx Anxiety: No Suicidal Ideation: No Smoking Status: Yes Smoking History: Former smoker Have you smoked in the past 12 months: No Number of Cigarettes Smoked Daily: 0 If you are a former smoker, when did you quit?: 13 YRS Cigars Per Day: 0 Information on smoking cessation initiated: No 'Breaking Loose' booklet given: 09/29/14 Hx Alcohol Use: No Drug/Substance Use Hx: No Substance Use Type: None Hx Substance Use Treatment: No <Rahul Marte - Last Filed: 08/22/16 07:20> - Past Medical History Allergies/Adverse Reactions: Allergies Allergy/AdvReac Type Severity Reaction Status Date / Time No Known Allergies Allergy Verified 08/17/16 12:54 Home Medications: Ambulatory Orders Acetaminophen [Tylenol .Regular Strength -] 650 mg PO Q4H PRN #0 tablet Albuterol 2.5/Ipratropium 0.5 [Duoneb -] 1 amp NEB QIDR amp 08/05/16 Budesonide/Formeterol Fumarate [SYMBICORT 160/4.5mcg -] 2 puff IH BID #1 inhaler 08/05/16 Carvedilol [Coreg -] 12.5 mg PO BID tablet 08/05/16 Cholecalciferol (Vitamin D3) [Vitamin D3 -] 1,000 unit PO DAILY tab 08/05/16 Citalopram Hydrobromide [Celexa -] 40 mg PO DAILY tablet 08/05/16 Docusate Sodium [Colace -] 100 mg PO TID #90 tab 08/05/16 Levothyroxine [Synthroid -] 88 mcg PO DAILY@0700 tablet 08/05/16 Oxycodone HCl [Roxicodone -] 5 mg PO Q4H PRN #0 tablet MDD 6 08/05/16 Pantoprazole Sodium [Protonix -] 40 mg PO DAILY #30 tab 08/05/16 Prednisone [Deltasone -] 10 mg PO DAILY #30 tablet 08/05/16 Furosemide [Lasix -] 20 mg PO DAILY #30 tablet 08/20/16 Review of Systems - Review of Systems Able to Perform ROS?: Yes Comments:: 08/17/16 15:34 CONSTITUTIONAL: No reported: Fever, Chills, Diaphoresis, Generalized Weakness, Malaise, Loss of Appetite HEENT: No reported: Rhinorrhea, Nasal Congestion, Throat Pain, Throat Swelling, Difficulty Swallowing, Mouth Swelling, Ear Pain, Eye Pain, Visual Changes CARDIOVASCULAR: No reported: Chest Pain, Syncope, Palpitations, Irregular Heart Rate, Lightheadedness, Peripheral Edema RESPIRATORY: No reported: Cough, Shortness of Breath, SOB with Exertion, Orthopnea, Wheezing , Stridor, Hemoptysis GASTROINTESTINAL: No reported: Abdominal pain, Abdominal Distension, Nausea, Vomiting, Diarrhea, Constipation, Melena, Hematochezia GENITOURINARY: No reported: Dysuria, Frequency, Urgency, Hesitancy, Flank Pain, Genital Pain MUSCULOSKELETAL: +Left thumb pain. No reported: Myalgia, Arthralgia, Joint Swelling, Back pain, Neck Pain SKIN: No reported: Rash, Itching, Pallor HEMATOLOGIC/IMMUNOLOGIC: No reported: Easy Bleeding, Easy Bruising, Lymphadenopathy, Frequent infections ENDOCRINE: No reported: Unexplained Weight Gain, Unexplained Weight Loss, Heat Intolerance , Cold Intolerance NEUROLOGIC: No reported: Headache, Focal Weakness, Paresthesias, Vertigo, Lightheadedness, Unsteady Gait, Seizure, Mental Status Changes, Incontinence PSYCHIATRIC: No reported: Anxiety, Depression <Boone Justin - Last Filed: 08/17/16 15:33> *Physical Exam - Vital Signs Last Vital Signs Temp Pulse Resp BP Pulse Ox 98.2 F 95 H 20 109/66 91 L 08/17/16 12:50 08/17/16 12:50 08/17/16 12:50 08/17/16 12:50 08/17/16 12:50 - Physical Exam Comments: 08/17/16 15:34 GENERAL: The patient is awake, alert, and fully oriented, Nontoxic - in no acute distress. HEAD: Normocephalic, atraumatic. EYES: extraocular movements intact, sclera anicteric, conjunctiva clear. ENT: Normal voice, Moist mucous membranes. NECK: Normal range of motion, supple LUNGS: Breath sounds equal, clear to auscultation bilaterally. No wheezes, no rhonchi, no rales. HEART: Regular rate and rhythm, without murmur, rub or gallop. ABDOMEN: Soft, nontender, normoactive bowel sounds. No guarding, no rebound.No CVA tenderness EXTREMITIES: Dry gangrene of the tip left thumb with proximal erythema. pulses symmetric in radials b/l, otherdigits warm to touch, heeling abrasion/exchar to the dorsal aspect of L wrist NEUROLOGICAL: No facial asymmetry, Normal speech. PSYCH: Normal mood, normal affect. SKIN: Warm, Dry, normal turgor. <Boone Justin - Last Filed: 08/17/16 15:33> - Vital Signs Last Vital Signs Temp Pulse Resp BP Pulse Ox 98.2 F 95 H 20 109/66 91 L 08/17/16 12:50 08/17/16 12:50 08/17/16 12:50 08/17/16 12:50 08/17/16 12:50 <Rahul Marte - Last Filed: 08/22/16 07:20> Heart Score/ECG Review - ECG Impressions Comment:: 08/17/16 17:11 Twelve-lead EKG was performed and reviewed by me. There is normal sinus rhythm with a rate of 106 The axis is normal. The intervals are normal. There are no ST or T wave abnormalities. Impression: sinus tachycardia <Rahul Marte - Last Filed: 08/22/16 07:20> ED Treatment Course - LABORATORY CBC & Chemistry Diagram: 08/17/16 13:19 08/17/16 13:19 <oBone Justin - Last Filed: 08/17/16 15:33> - LABORATORY CBC & Chemistry Diagram: 08/21/16 08:00 08/21/16 08:00 <Rahul Marte - Last Filed: 08/22/16 07:20> Medical Decision Making - Medical Decision Making 08/17/16 17:11 76y F presenting with wosening L thumb pain for a few weeks, appears to be gangrene, pulses symmetric in radials case w dr. dumont - recommend cTA of upper extremity to r/o thrombosis/emoblism pts cr elevated, not candidate for cta will discuss with fiorella 08/17/16 17:35 case dw connie geiger agree with admission for further management stable for med/surg consider possible MRI? vs angio unable obtain CTA due to creatinine Case discussed in detail with admitting physician including history, physical exam and ancillary studies. Admitting physician has assumed care for the patient, will follow all pending diagnostics and will complete the evaluation and treatment. A portion of this note was documented by scribe services under my direction. I have reviewed the details of the note, within reason, and agree with the documentation with the following case summary and management plan written by me <Rahul Marte - Last Filed: 08/22/16 07:20> *DC/Admit/Observation/Transfer - Attestations Scribe Attestion: 08/17/16 15:34 Documentation prepared by Boone Justin, acting as medical technologist hematology for Rahul Marte MD. <Boone Justin - Last Filed: 08/17/16 15:33> - Discharge Dispostion Admit: Yes <Rahul Marte - Last Filed: 08/22/16 07:20> Diagnosis at time of Disposition: Gangrene of thumb, Acute on chronic renal insufficiency - Discharge Dispostion Disposition: AGAINST MEDICAL ADVICE Condition at time of disposition: Improved - Prescriptions - Referrals
[2016-08-17] MEDS ORDERED: OXYCODONE/APAP 5/325MG COMBO TABLET PO ONE (16:46)
[2016-08-17 16:47] LABS: ALBUMIN 2.2 g/dl (3.4-5.0); ALK PHOS 86 U/L (45-117); ANION GAP 6 (8-16); BILIRUBIN,TOTAL 0.2 mg/dL (0.2-1.0); CALCIUM 9.3 mg/dL (8.5-10.1); CO2 27 mmol/L (21-32); CREATININE 2.7 mg/dL (0.55-1.02); GLUCOSE,RANDOM 72 mg/dL (74-106); SGOT/AST 16 U/L (15-37); SGPT/ALT 21 U/L (12-78); TOT PROT 5.9 g/dl (6.4-8.2)
[2016-08-17] MEDS ORDERED: OXYCODONE/APAP 5/325MG COMBO TABLET ONE (16:47)
[2016-08-17] MEDS ORDERED: SODIUM CHLORIDE 500 ML IV STA (16:47)
[2016-08-17] MEDS ORDERED: oxyCODONE HCL 5 MG TABLET PO PRN (17:52)
[2016-08-17] MEDS ORDERED: ACETAMINOPHEN 325 MG TABLET (FP) PO PRN (17:52)
--- NOTE | 2016-08-17 20:23 | HP ---
Admitting History and Physical - Admission History of Present Illness: 76 year old female, with a significant past medical history of aortic stenosis, CAD s/p stent and PCI, HTN, HLD, mitral insufficiency, pulmonary HTN, COPD, small cell carcinoma s/p chemo, lung CA O2 dependent, renal failure, chronic lower back pain, and hypothyroidism who presents to the emergency department with left thumb pain and discoloration. Patient reports recently being admitted to the hospital for COPD and pneumonia. She reports shortly after her discharge having left thumb pain, erythema and dislocation, now noting her thumb turning black in color. She denies recent fevers, chills, headache or dizziness. She denies recent nausea, vomit, diarrhea or constipation. She denies recent dysuria, frequency, urgency or hematuria. She denies recent chest pain or shortness of breath. - Past Medical History Cardiovascular: Yes: Aortic Stenosis, CAD (with coronary stenting), HTN, Hyperlipdemia, Mitral Insufficiency, Pulmonary Hypertension Pulmonary: Yes: Cancer (Chemothrerapy for small cell carcinoma- Dr Simpson), COPD Gastrointestinal: Yes: Diverticulosis, Other (Breast lumpectomy) Renal/: Yes: Renal Failure, Renal Inusuff Heme/Onc: Yes: Cancer Psych: Yes: Anxiety Musculoskeletal: Yes: Chronic low back pain, Osteoarthritis Endocrine: Yes: Hypothyroidism, Osteopenia - Past Surgical History Past Surgical History: Yes: Laminectomy (cervical ', lumbar '), Stent, Tonsillectomy, Tubal Ligation - Smoking History Smoking history: Former smoker Have you smoked in the past 12 months: No Aproximately how many cigarettes per day: 0 If you are a former smoker, when did you quit?: 13 YRS - Alcohol/Substance Use Hx Alcohol Use: No Date of Last Use: 02/27/81 - Social History ADL: Independent 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 History of Recent Travel: No Home Medications - Allergies Allergies/Adverse Reactions: Allergies Allergy/AdvReac Type Severity Reaction Status Date / Time No Known Allergies Allergy Verified 08/17/16 12:54 - Home Medications Home Medications: Ambulatory Orders Furosemide [Lasix] 40 mg PO DAILY 07/26/16 Acetaminophen [Tylenol .Regular Strength -] 650 mg PO Q4H PRN #0 tablet Albuterol 2.5/Ipratropium 0.5 [Duoneb -] 1 amp NEB QIDR amp 08/05/16 Budesonide/Formeterol Fumarate [SYMBICORT 160/4.5mcg -] 2 puff IH BID #1 inhaler 08/05/16 Carvedilol [Coreg -] 12.5 mg PO BID tablet 08/05/16 Cholecalciferol (Vitamin D3) [Vitamin D3 -] 1,000 unit PO DAILY tab 08/05/16 Citalopram Hydrobromide [Celexa -] 40 mg PO DAILY tablet 08/05/16 Docusate Sodium [Colace -] 100 mg PO TID #90 tab 08/05/16 Levothyroxine [Synthroid -] 88 mcg PO DAILY@0700 tablet 08/05/16 Oxycodone HCl [Roxicodone -] 5 mg PO Q4H PRN #0 tablet MDD 6 08/05/16 Pantoprazole Sodium [Protonix -] 40 mg PO DAILY #30 tab 08/05/16 Prednisone [Deltasone -] 10 mg PO DAILY #30 tablet 08/05/16 Family Disease History - Family Disease History Family Disease History: CA: Father (diffuse unknown primary), Sister ( of lung cancer), Other: Mother ( after hip fracture) Review of Systems - Review of Systems Cardiovascular: denies: Chest Pain, Shortness of Breath Respiratory: reports: SOB. denies: Cough Gastrointestinal: denies: Abdominal Pain Integumentary: reports: Change in Color (LEFT THUMB) Physical Examination Vital Signs: Vital Signs Temperature 98.2 F 08/17/16 12:50 Pulse Rate 95 H 08/17/16 12:50 Respiratory Rate 20 08/17/16 12:50 Blood Pressure 109/66 08/17/16 12:50 O2 Sat by Pulse Oximetry (%) 91 L 08/17/16 12:50 Cardiovascular: Yes: Murmur, S1, S2 Respiratory: Yes: Regular, CTA Bilaterally Gastrointestinal: Yes: Normal Bowel Sounds, Soft. No: Tenderness Extremities: Yes: Other (GANGRENE OF LEFT THUMB) Problem List - Problems (1) Acute on chronic renal insufficiency Assessment/Plan: MONITOR RENAL FUNCTION Code(s): N28.9 - DISORDER OF KIDNEY AND URETER, UNSPECIFIED N18.9 - CHRONIC KIDNEY DISEASE, UNSPECIFIED (2) Gangrene of thumb Assessment/Plan: R/O VASCULAR OCCLUSION R.O EMBOLI IV ABX UNABLE TO AC DUE TO DROPPING HGB Code(s): I96 - GANGRENE, NOT ELSEWHERE CLASSIFIED (3) Anemia Assessment/Plan: MONITOR Code(s): D64.9 - ANEMIA, UNSPECIFIED Qualifiers: Anemia type: due to other cause Other causes of anemia: chronic disease , kidney (4) CHF (congestive heart failure) Assessment/Plan: LASIX Code(s): I50.9 - HEART FAILURE, UNSPECIFIED Qualifiers: Congestive heart failure type: diastolic Congestive heart failure chronicity: acute on chronic Qualified Code(s): I50.33 - Acute on chronic diastolic (congestive) heart failure (5) COPD (chronic obstructive pulmonary disease) Assessment/Plan: NEBS STEROIDS Code(s): J44.9 - CHRONIC OBSTRUCTIVE PULMONARY DISEASE, UNSPECIFIED Qualifiers : COPD type: unspecified COPD Qualified Code(s): J44.9 - Chronic obstructive pulmonary disease, unspecified
[2016-08-17] MEDS ORDERED: CEFAZOLIN 1 GM in DEXTROSE 5%-WATER - 50 ML IVPB SCH (22:15)
[2016-08-17] MEDS: CARVEDILOL 12.5 MG TABLET (FP) PO SCH (22:40)
[2016-08-17] MEDS: HEPARIN NA (PORCINE) 5,000 UNITS/ML 1ML VIAL SQ SCH (22:40)
[2016-08-17] MEDS: DOCUSATE SODIUM 100 MG CAPSULE (FP) PO SCH (22:40)
[2016-08-17] MEDS: FUROSEMIDE 40 MG/4 ML INJECTABLE VIAL IVPB SCH (22:40)
[2016-08-17] MEDS ORDERED: FUROSEMIDE 40 MG/4 ML INJECTABLE VIAL ONE (23:56)
[2016-08-17] MEDS ORDERED: CARVEDILOL 12.5 MG TABLET (FP) ONE (23:56)
[2016-08-17] MEDS ORDERED: HEPARIN NA (PORCINE) 5,000 UNITS/ML 1ML VIAL ONE (23:56)
[2016-08-17] MEDS ORDERED: DOCUSATE SODIUM 100 MG CAPSULE (FP) PO ONE (23:56)
[2016-08-18] MEDS ORDERED: CEFAZOLIN (PRE-DOCKED) 50 ML IVPB ONE (00:30)
[2016-08-18] MEDS: BUDESONIDE/FORMETEROL FUMARATE 160/4.5 mcg INHALER IH SCH ×3 (00:43→21:15)
[2016-08-18] MEDS ORDERED: LEVOTHYROXINE NA 25 MCG TABLET (FP) ONE (05:42)
[2016-08-18] MEDS ORDERED: DOCUSATE SODIUM 100 MG CAPSULE (FP) PO ONE (05:42)
[2016-08-18] MEDS: LEVOTHYROXINE NA 88 MCG TABLET (FP) PO SCH (06:20)
[2016-08-18] MEDS: DOCUSATE SODIUM 100 MG CAPSULE (FP) PO SCH ×5 (06:21→23:57)
[2016-08-18] MEDS: CARVEDILOL 12.5 MG TABLET (FP) PO SCH ×2 (09:51→21:13)
[2016-08-18] MEDS: predniSONE 10 MG TABLET (UD) PO SCH (09:51)
[2016-08-18] MEDS: CHOLECALCIFEROL (VITAMIN D3) 1,000 UNIT TABLET (FP) PO SCH (09:51)
[2016-08-18] MEDS: CITALOPRAM HYDROBROMIDE 20 MG TABLET (FP) PO SCH (09:51)
[2016-08-18] MEDS: FUROSEMIDE 40 MG/4 ML INJECTABLE VIAL IVPB SCH (09:51)
[2016-08-18] MEDS: PANTOPRAZOLE 40 MG TABLET (FP) PO SCH (09:51)
[2016-08-18] MEDS: HEPARIN NA (PORCINE) 5,000 UNITS/ML 1ML VIAL SQ SCH ×2 (09:51→21:13)
[2016-08-18] MEDS ORDERED: FUROSEMIDE 40 MG TABLET (FP) PO SCH (10:00)
[2016-08-18] MEDS ORDERED: OXYCODONE/APAP 5/325MG COMBO TABLET PO PRN (11:47)
--- NOTE | 2016-08-18 11:47 | PN ---
Progress Note, Physician Chief Complaint: NECROSIS OF LEFT THUMB History of Present Illness: CAME IN TO THE HOSPITAL FOR NECROSIS OF LEFT THUMB, SEEN BY VASCULAR, UNABLE TO DO MRA AT THIS TIME DUE TO DECREASED RENAL FUNCTION. TO BE SEEN BY RENAL FOR EVALUATION. SHE IS COMFORTABLE , AWAITING MED-SURG BED, IN MILD PAIN. - Current Medication List Current Medications: Active Medications Acetaminophen (Tylenol -) 650 mg PO Q4H PRN PRN Reason: FEVER OR PAIN Budesonide/Formoterol Fumarate (Symbicort 160/4.5mcg -) 2 puff IH BID [facility] Last Admin: 08/18/16 09:51 Dose: 2 puff Carvedilol (Coreg -) 12.5 mg PO BID [facility] Last Admin: 08/18/16 09:51 Dose: 12.5 mg Cholecalciferol (Vitamin D3 -) 1,000 unit PO DAILY [facility] Last Admin: 08/18/16 09:51 Dose: 1,000 unit Citalopram Hydrobromide (Celexa -) 40 mg PO DAILY [facility] Last Admin: 08/18/16 09:51 Dose: 40 mg Docusate Sodium (Colace -) 100 mg PO TID [facility] Last Admin: 08/18/16 06:21 Dose: 100 mg Furosemide (Lasix Injection -) 40 mg IVPB DAILY [facility] Last Admin: 08/18/16 09:51 Dose: 40 mg Heparin Sodium (Porcine) (Heparin -) 5,000 unit SQ BID [facility] Last Admin: 08/18/16 09:51 Dose: 5,000 unit Cefazolin Sodium 1 gm/ (Dextrose) 50 mls @ 100 mls/hr IVPB Q8H-IV [facility] Levothyroxine Sodium (Synthroid -) 88 mcg PO DAILY@0700 [facility] Last Admin: 08/18/16 06:20 Dose: 88 mcg Oxycodone HCl (Roxicodone -) 5 mg PO Q4H PRN PRN Reason: PAIN Pantoprazole Sodium (Protonix -) 40 mg PO DAILY [facility] Last Admin: 08/18/16 09:51 Dose: 40 mg Prednisone (Deltasone -) 10 mg PO DAILY [facility] Last Admin: 08/18/16 09:51 Dose: 10 mg - Objective Vital Signs: Vital Signs Temperature 98.3 F 08/18/16 09:07 Pulse Rate 82 08/18/16 09:07 Respiratory Rate 16 08/18/16 09:07 Blood Pressure 104/59 08/18/16 09:07 O2 Sat by Pulse Oximetry (%) 99 08/18/16 09:00 Constitutional: Yes: Well Nourished, No Distress, Calm Cardiovascular: Yes: Pulse Irregular, Murmur (LSB GRADE III) Respiratory: Yes: Regular Gastrointestinal: Yes: Normal Bowel Sounds Extremities: Yes: Other (NECROSIS OF LEFT THUMB) Edema: No Peripheral Pulses WNL: No Peripheral Pulses: Left Radial: 1+ Neurological: Yes: Alert, Oriented Problem List - Problems (1) Acute on chronic renal insufficiency Code(s): N28.9 - DISORDER OF KIDNEY AND URETER, UNSPECIFIED N18.9 - CHRONIC KIDNEY DISEASE, UNSPECIFIED (2) Gangrene of thumb Assessment/Plan: AWAITNG RENAL CONSULT SEEN BY VASCULAR, NEED MRA, UNABLE TO DO IT AT THE MOMENT BECAUSE OF GFR OF 17.3 PAIN MANAGEMENT Code(s): I96 - GANGRENE, NOT ELSEWHERE CLASSIFIED (3) Anemia Assessment/Plan: MONITOR H/H Code(s): D64.9 - ANEMIA, UNSPECIFIED Qualifiers: Anemia type: due to other cause Other causes of anemia: chronic disease , kidney Assessment/Plan AWAITNG RENAL CONSULT SEEN BY VASCULAR, NEED MRA, UNABLE TO DO IT AT THE MOMENT BECAUSE OF GFR OF 17.3 PAIN MANAGEMENT MONITOR H/H
--- NOTE | 2016-08-18 12:27 | EKG ---
Test Reason : Blood Pressure : / mmHG Vent. Rate : 106 BPM Atrial Rate : 106 BPM P-R Int : 162 ms QRS Dur : 088 ms QT Int : 318 ms P-R-T Axes : 075 031 085 degrees QTc Int : 422 ms SINUS TACHYCARDIA WITH PREMATURE ATRIAL COMPLEXES ANTERIOR INFARCT , AGE UNDETERMINED ABNORMAL ECG WHEN COMPARED WITH ECG OF 31-JUL-2016 05:32, PREMATURE ATRIAL COMPLEXES ARE NOW PRESENT ST NO LONGER DEPRESSED IN INFERIOR LEADS NONSPECIFIC T WAVE ABNORMALITY NOW EVIDENT IN LATERAL LEADS Confirmed by SILVINO HOLT MD ([id number]) on 08/18/2016 12:27:41 PM Referred By: Confirmed By:SILVINO HOLT MD
--- NOTE | 2016-08-18 12:32 | CONSULT ---
Consult - text type - Consultation Consultation Note: Renal consult for FRANK and Contrast Nephropathy risk stratification This is a 76 year old woman with PMhx of CKD Stage 4 (baseline Cr 1.8), Aortic Stenosis, CAD s/p Stent, Hypertension, Pulmonary Hypertension, COPD, Small Cell Lung Ca, Hypothroidism who presented to the ED with complaints of a discolored thumb. Pt state and state that he thumb has been discolored since her last hospital discharge. Denies any pain in the thumb. Was seen in PMD office and had duplex done at that time. Cr is now 2.7, up from 1.8 on discharge. Denies any diuretic, NSAID use or contrast exposure as an outpatient. Reports good oral intake, no flank pain. No change in urine output, color or blood in urine. No N/V/D, chest pain, abd pain. No recent vascular procedures. PMhx: as above Allergies: NKDA Family Hx: NC Social Hx: No T/A/D ROS: As per HPI Home Medications Medication Instructions Recorded Furosemide [Lasix] 40 mg PO DAILY 07/26/16 Acetaminophen [Tylenol .Regular 650 mg PO Q4H PRN #0 tablet 08/05/16 Strength -] Albuterol 2.5/Ipratropium 0.5 1 amp NEB QIDR amp 08/05/16 [Duoneb -] Budesonide/Formeterol Fumarate 2 puff IH BID #1 inhaler 08/05/16 [SYMBICORT 160/4.5mcg -] Carvedilol [Coreg -] 12.5 mg PO BID tablet 08/05/16 Cholecalciferol (Vitamin D3) 1,000 unit PO DAILY tab 08/05/16 [Vitamin D3 -] Citalopram Hydrobromide [Celexa -] 40 mg PO DAILY tablet 08/05/16 Docusate Sodium [Colace -] 100 mg PO TID #90 tab 08/05/16 Levothyroxine [Synthroid -] 88 mcg PO DAILY@0700 tablet 08/05/16 Oxycodone HCl [Roxicodone -] 5 mg PO Q4H PRN #0 tablet MDD 6 08/05/16 Pantoprazole Sodium [Protonix -] 40 mg PO DAILY #30 tab 08/05/16 Prednisone [Deltasone -] 10 mg PO DAILY #30 tablet 08/05/16 Vital Signs Temperature 97.8 F 08/18/16 12:22 Pulse Rate 80 08/18/16 12:22 Respiratory Rate 16 08/18/16 12:22 Blood Pressure 97/56 08/18/16 12:22 O2 Sat by Pulse Oximetry (%) 99 08/18/16 09:00 Intake & Output 08/15/16 08/16/16 08/17/16 08/18/16 23:59 23:59 23:59 23:59 Intake Total 150 Balance 150 Weight 100 lb 100 lb Gen: NAD, on NC, awake and alert HEENT: NC/AT, MMM, no JVD CVS: RRR, no rub Lungs: Dec BS throughout the lung robertson, no rales Abd: soft NT/ND Ext: No edema, clubbing or cyanosis, discoloration of left thumb : No bladder distension Neuro: AAOx3, no focal defects CBC, BMP 08/17/16 13:19 08/17/16 15:52 Current Medications Acetaminophen (Tylenol -) 650 mg PO Q4H PRN PRN Reason: FEVER OR PAIN Budesonide/Formoterol Fumarate (Symbicort 160/4.5mcg -) 2 puff IH BID [facility] Last Admin: 08/18/16 09:51 Dose: 2 puff Carvedilol (Coreg -) 12.5 mg PO BID [facility] Last Admin: 08/18/16 09:51 Dose: 12.5 mg Cholecalciferol (Vitamin D3 -) 1,000 unit PO DAILY [facility] Last Admin: 08/18/16 09:51 Dose: 1,000 unit Citalopram Hydrobromide (Celexa -) 40 mg PO DAILY [facility] Last Admin: 08/18/16 09:51 Dose: 40 mg Docusate Sodium (Colace -) 100 mg PO TID [facility] Last Admin: 08/18/16 06:21 Dose: 100 mg Furosemide (Lasix Injection -) 40 mg IVPB DAILY [facility] Last Admin: 08/18/16 09:51 Dose: 40 mg Heparin Sodium (Porcine) (Heparin -) 5,000 unit SQ BID [facility] Last Admin: 08/18/16 09:51 Dose: 5,000 unit Cefazolin Sodium 1 gm/ (Dextrose) 50 mls @ 100 mls/hr IVPB Q8H-IV [facility] Levothyroxine Sodium (Synthroid -) 88 mcg PO DAILY@0700 [facility] Last Admin: 08/18/16 06:20 Dose: 88 mcg Oxycodone/Acetaminophen (Percocet 5/325 -) 2 combo PO Q6H PRN PRN Reason: PAIN LEVEL 6-10 Pantoprazole Sodium (Protonix -) 40 mg PO DAILY [facility] Last Admin: 08/18/16 09:51 Dose: 40 mg Prednisone (Deltasone -) 10 mg PO DAILY [facility] Last Admin: 08/18/16 09:51 Dose: 10 mg A/P 76 year old woman with PMhx of CKD Stage 4 (baseline Cr 1.8), Aortic Stenosis, CAD s/p Stent, Hypertension, Pulmonary Hypertension, COPD, Small Cell Lung Ca, Hypthroidism who presented to the ED with complaints of a discolored thumb. #Acute on Chronic Renal Insufficiency/Contrast Nephropathy risk stratification Etiology of FRANK unclear but could be intravascular volume depletion vs. embolic kidney disease vs. normotensive ATN On clinical exam no evidence of fluid overload s/p IV lasix on admission, will hold for now Trial of IVF with close monitoring of renal function Check Urine studies including FeUrea, UPCR Risk of IV contrast nephropathy 26% and risk of immediate need for dialysis 1% as calculated by LUDA risk calculator for PCI developed by Payam et al and published in the [place] Journal of Cardiology in 2004. eGFR is < 30 at baseline and therefore high risk for nephrogenic systemic fibrosis with MRI Gadolinium exposure There risks were made clear to the pt and Other interventions for diagnostic imaging including CO2 angiogram discussed with Vascular #Discoloration of thumb etiology likely embolic Vascular to follow and imaging options discussed with them #Anemia Ternd CBC Check iron studies Transfuse as needed per protocol Thank you Will follow Eric Mendoza DO
[2016-08-18] MEDS ORDERED: CEFAZOLIN 0.5 GM in DEXTROSE 5%-WATER - 50 ML IVPB ONE (13:00)
[2016-08-18] MEDS: SODIUM CHLORIDE 1,000 ML IV SCH (13:18)
--- NOTE | 2016-08-18 16:03 | PN ---
Progress Note (short form) - Note Progress Note: ID consult dictated 76 year old female with COPD, CKD, Small cell lung cancer recently hospitalized 07/27 to 08/05 with RLL pneumonia and GI bleed. she received zosyn while in the hospital, EGD was negative she states she had discoloration of her thumb prior to discharge the thumb pain and discoloration worsened after discharge and she went to see Dr Thompson on 08/17 and was advised admission. no fevers or chills no cough self d/ana prednisone at home good appetite no further GI bleeding echo unrevealing imp/reccd dry gangrene of the tip of the thumb-?embolic, no fever, no stigmata of endocarditis seen by vascular (dr Husain) per patient and plan is for angiogram after renal function improves blood cultures have been sent eren/ckd she has a eosinophila- doubt AIN, but will order urine eosinophils will treat with vancomycin and follow levels - to try to avoid beta lactams for now, ?AIN hand surgery and vascular to see d/w at bedside
[2016-08-18] MEDS ORDERED: VANCOMYCIN 750 MG in DEXTROSE 5%-WATER - 250 ML IVPB ONE (16:09)
--- NOTE | 2016-08-18 16:12 | CON.CARD ---
Consult Consult Specialty:: Cardiology Referred by:: Isaiah Thompson MD Reason for Consultation:: Left digit ischemia - History of Present Illness Chief Complaint: Left thumb dry gangrene History of Present Illness: Patient is a 76 year old female with history of CAD S/P PCI/stent, angina pectoris, diastolic left ventricular dysfunction with class 1 NYHA classification LV failure, aortic valve disease (moderate ), hypercholesterolemia, pulmonary hypertension, HTN/HCVD, small cell lung CA post chemotherapy, breast CA post chemotherapy, COPD, CKD and diverticular disease recently hospitalized 07/27 to 08/05 with RLL pneumonia and GI bleed, she received zosyn while in the hospital, EGD was negative, presents for left thumb tip dry gangrene, pain and parasthesias. Denies cardiovascular symptoms of chest pain, palpitations, dyspnea, near or true syncope, orthopnea, PND or LE edema. - History Source History Provided By: Patient Limitations to Obtaining History: No Limitations - Past Medical History Cardio/Vascular: Yes: Aortic Stenosis, CAD (with coronary stenting), HTN, Hyperlipdemia, Mitral Insufficiency, Pulmonary Hypertension Pulmonary: Yes: Cancer (Chemothrerapy for small cell carcinoma- Dr Simpson), COPD Gastrointestinal: Yes: Diverticulosis, Other (Breast lumpectomy) Renal/: Yes: Renal Failure, Renal Inusuff Psych: Yes: Anxiety Musculoskeletal: Yes: Chronic low back pain, Osteoarthritis Endocrine: Yes: Hypothyroidism, Osteopenia - Past Surgical History Past Surgical History: Yes: Laminectomy (cervical '99, lumbar '97), Stent, Tonsillectomy, Tubal Ligation - Alcohol/Substance Use Hx Alcohol Use: No Date of Last Use: 02/27/81 - Smoking History Smoking history: Former smoker Have you smoked in the past 12 months: No Aproximately how many cigarettes per day: 0 If you are a former smoker, when did you quit?: 13 YRS - Social History Usual Living Arrangement: With Spouse ADL: Independent 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 History of Recent Travel: No Home Medications - Allergies Allergies/Adverse Reactions: Allergies Allergy/AdvReac Type Severity Reaction Status Date / Time No Known Allergies Allergy Verified 08/17/16 12:54 - Home Medications Home Medications: Ambulatory Orders Furosemide [Lasix] 40 mg PO DAILY 07/26/16 Acetaminophen [Tylenol .Regular Strength -] 650 mg PO Q4H PRN #0 tablet Albuterol 2.5/Ipratropium 0.5 [Duoneb -] 1 amp NEB QIDR amp 08/05/16 Budesonide/Formeterol Fumarate [SYMBICORT 160/4.5mcg -] 2 puff IH BID #1 inhaler 08/05/16 Carvedilol [Coreg -] 12.5 mg PO BID tablet 08/05/16 Cholecalciferol (Vitamin D3) [Vitamin D3 -] 1,000 unit PO DAILY tab 08/05/16 Citalopram Hydrobromide [Celexa -] 40 mg PO DAILY tablet 08/05/16 Docusate Sodium [Colace -] 100 mg PO TID #90 tab 08/05/16 Levothyroxine [Synthroid -] 88 mcg PO DAILY@0700 tablet 08/05/16 Oxycodone HCl [Roxicodone -] 5 mg PO Q4H PRN #0 tablet MDD 6 08/05/16 Pantoprazole Sodium [Protonix -] 40 mg PO DAILY #30 tab 08/05/16 Prednisone [Deltasone -] 10 mg PO DAILY #30 tablet 08/05/16 Family Disease History - Family Disease History Family Disease History: CA: Father (diffuse unknown primary), Sister ( of lung cancer), Other: Mother ( after hip fracture) Review of Systems - Review of Systems Cardiovascular: reports: No Symptoms Vital Signs: Vital Signs Temperature 98.6 F 08/18/16 14:54 Pulse Rate 77 08/18/16 14:54 Respiratory Rate 16 08/18/16 14:54 Blood Pressure 106/63 08/18/16 14:54 O2 Sat by Pulse Oximetry (%) 99 08/18/16 09:00 Constitutional: Yes: No Distress, Calm Neck: Yes: Supple Respiratory: Yes: Regular, Diminished Gastrointestinal: Yes: Normal Bowel Sounds, Soft Cardiovascular: Yes: Regular Rate and Rhythm JVD: No Carotid Bruit: No Heart Sounds: Yes: S1, S2 Murmur: Yes: Systolic Murmur, Grade 1 Edema: No Integumentary: Yes: Other (Gangrene) - Other Data ST @ 106 Ejection Fraction %: LVEF > or = 40 % Imaging - Results Chest X-ray: Report Reviewed (Mild cogestion) Problem List - Problems (1) Acute on chronic renal insufficiency Code(s): N28.9 - DISORDER OF KIDNEY AND URETER, UNSPECIFIED N18.9 - CHRONIC KIDNEY DISEASE, UNSPECIFIED (2) Gangrene of thumb Code(s): I96 - GANGRENE, NOT ELSEWHERE CLASSIFIED (3) ASHD (arteriosclerotic heart disease) Code(s): I25.10 - ATHSCL HEART DISEASE OF [place] CORONARY ARTERY W/O ANG PCTRS (4) Anemia Code(s): D64.9 - ANEMIA, UNSPECIFIED Qualifiers: Anemia type: due to other cause Other causes of anemia: chronic disease , kidney (5) Aortic stenosis Code(s): I35.0 - NONRHEUMATIC AORTIC (VALVE) STENOSIS Qualifiers: Cardiac valve disease etiology: nonrheumatic Qualified Code(s): I35.0 - Nonrheumatic aortic (valve) stenosis (6) COPD (chronic obstructive pulmonary disease) Code(s): J44.9 - CHRONIC OBSTRUCTIVE PULMONARY DISEASE, UNSPECIFIED Qualifiers : COPD type: unspecified COPD Qualified Code(s): J44.9 - Chronic obstructive pulmonary disease, unspecified (7) Diastolic dysfunction Code(s): I51.9 - HEART DISEASE, UNSPECIFIED (8) HTN (hypertension) Code(s): I10 - ESSENTIAL (PRIMARY) HYPERTENSION Qualifiers: Hypertension type: essential hypertension Qualified Code(s): I10 - Essential (primary) hypertension (9) Hypothyroid Code(s): E03.9 - HYPOTHYROIDISM, UNSPECIFIED Qualifiers: Hypothyroidism type: unspecified Qualified Code(s): E03.9 - Hypothyroidism, unspecified (10) S/P coronary artery stent placement Code(s): Z95.5 - PRESENCE OF CORONARY ANGIOPLASTY IMPLANT AND GRAFT (11) Tachycardia Code(s): R00.0 - TACHYCARDIA, UNSPECIFIED Assessment/Plan 08/18/2016 Normal biventricular size and fxn, mod , mild TR 1. Digital ischemia with dry gangrene of the tip of the left thumb 2. 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 Post recent right lower lobe Pneumonia 4. Gait dysfunction and near syncope due to postural hypotension 5. CAD post PCI/stent, angina pectoris 6. Diastolic left ventricular dysfunction with class 0-I NYHA classification LV failure and pulmonary HTN 7. Aortic valve disease, moderate aortic valve stenosis 8. HTN/HCVD 9. Hypercholesterolemia 10. Hypothyroidism 11. COPD with chronic hypoxemic respiratory failure 12. History of small cell lung carcinoma post chemotherapy 13. History of breast carcinoma post lumpectomy and chemotherapy 14. Acute on CKD consider intravascular volume depletion vs. embolic kidney disease vs. normotensive ATN 15. Anemia PLAN: 1. Check holter to assess for PAF, will consider LESIA to assess cardioembolic source, MRA once renal function stabilizes 2. F/u urine eosinophils, we may be looking at systemic embolization, Lasix held , gentle hydration with monitor renal fxn 2. Continue Coreg 12.5 mg bid 3. Consider heparin gtt with cautious monitor Hgb despite recent GI bleed 4. Empiric antibiotic course per C&S 5. Continue to hold Lisinopril and diuretics pending renal function stabilization 6. Thank you for consultative opportunity
--- NOTE | 2016-08-18 17:24 | CONS ---
DATE OF CONSULTATION: DATE OF DICTATION: 08/18/2016 INFECTIOUS DISEASE CONSULTATION REQUESTING PHYSICIAN: Isaiah Thompson M.D. CONSULTING PHYSICIAN: Faith Mederos M.D. HISTORY OF PRESENT ILLNESS: This is a 76-year-old woman who was recently hospitalized July 27 to August 05. During that admission, she presented after a fall at home. She had a productive cough. She was found to have a white count of 35,000. On that admission ultimately found to have, on CAT scan, evidence of a right lower lobe pneumonia. Sputum grew pseudomonas. She was treated with and tazobactam for 8 days. She did well. During the course of the admission, she developed GI bleeding. She was transferred to the ICU, given blood transfusion, and ultimately had an upper endoscopy that was negative. She was discharged home. The patient reports prior to discharge she developed left thumb pain; after discharge home, the finger worsened, became discolored, and more painful. She reports going to see Dr. Thompson on the , and he noted she had gangrene of her fingertip and sent her to the hospital. She has been seen, she says, but vascular surgery, who wants to do an angiogram of her hand, but she was noted to be in acute renal failure and is currently receiving IV fluids. PAST MEDICAL HISTORY: Notable for history of aortic stenosis, coronary artery disease, with stent, hypertension, hyperlipidemia, mitral insufficiency, pulmonary hypertension, COPD on home oxygen. She has a history of breast and lung cancer in the past. She still has a left sided port. She has a history of renal insufficiency with a baseline creatinine of 1.9 to 2. SURGICAL HISTORY: Notable for cervical laminectomy in 1998, lumbar laminectomy in 1996, tonsillectomy, tubal ligation, and left sided port. ALLERGIES: She has no known drug allergies. FAMILY HISTORY: Noncontributory. SOCIAL HISTORY: She is . She lives at home with her . She has home oxygen, and she uses a walker. REVIEW OF SYSTEMS: Notable for the fact that her cough is vastly improved. During the past admission she had no appetite. She is quite hungry now. She has self discontinued her prednisone during her last admission after she went home as well. She denies any dysuria, she denies any fevers or chills. She has no nausea or vomiting. MEDICATION: Medications at home include Lasix, DuoNeb, Symbicort, Coreg, vitamin D, Celexa, Colace, Synthroid, oxycodone, and Protonix. She was on a prednisone taper, which she stopped at home. PHYSICAL EXAMINATION: General: She is awake and alert . She is resting comfortably. She has had no fever. She reports on admission she was not on prednisone. Vital signs: Temperature 98.6, pulse 77, blood pressure 106/63, respiratory rate 16. She weighs 100 pounds. HEENT: Normocephalic. Eyes are anicteric. She has no conjunctival hemorrhages. Neck: Supple. Lungs: Clear to auscultation. Heart: Regular rate and rhythm. Abdomen: Soft, nontender. Extremities: Notable for the thumb of the right hand had dry gangrene of the fingertip. There is some surrounding erythema. Both hands are warm. LABORATORY: Her white count is 6.2, hemoglobin 8.8, platelets 161. She has 7% eosinophils, her BUN and creatinine are 42 and 2.7. Urinalysis is pending. In summary, this is a 76-year-old woman, dry gangrene of the tip of the thumb. The source is really not clear. She does not have any signs or stigmata of endocarditis to suggest that as a possible source of this. She had an echocardiogram done already that is unrevealing. She is afebrile, and blood cultures are pending. She has been seen by vascular and angiogram when her renal function improves. Blood cultures have been sent. As well, she has acute kidney injury. She has an eosinophilia. I doubt AIN, but will order urine eosinophils. She has been seen by nephrology. We will treat her with vancomycin and follow levels. Will try to avoid beta lactams for now. Given the question of AIN, will discuss with renal, hand surgery, and vascular to follow. Further recommendations to follow. We will follow her vancomycin levels closely. FAITH MEDEROS M.D. [id number]
--- NOTE | 2016-08-18 17:52 | PN ---
Progress Note (short form) - Note Progress Note: Vascular Surgery Pt seen and examined. Renal function does not allow for MRA. On physical exam pt has a palpable axillary, brachial, and ulnar pulse. Radial pulse is faint. Left tip of thumb with dry gangrene. Will do CO2 angiogram [facility] in OR to access flow to hand Please clear from cardiology and medical standpoint. Orlando Husain DO
[2016-08-18] MEDS ORDERED: ACETAMINOPHEN 325 MG TABLET (FP) PO PRN (21:02)
[2016-08-18] MEDS ORDERED: oxyCODONE HCL 5 MG TABLET PO PRN (21:02)
[2016-08-18 21:31] LABS: BASOPHIL 0.3 % (0-2.0); EOSINOPHIL 0.2 % (0-4.5); MCH 29.8 pg (25.7-33.7); MCHC 32.9 g/dl (32.0-36.0); MEAN CELL VOLUME 90.6 fl (80-96); MEAN PLT VOLUME 7.1 fl (7.5-11.1); PLATELET COUNT 237 K/MM3 (134-434); RDW 15.2 % (11.6-15.6); WHITE BLOOD COUNT 6.1 K/mm3 (4.0-10.0)
[2016-08-18 22:03] LABS: ALBUMIN 1.8 g/dl (3.4-5.0); ALK PHOS 83 U/L (45-117); ANION GAP 9 (8-16); BILIRUBIN,TOTAL 0.2 mg/dL (0.2-1.0); CALCIUM 8.1 mg/dL (8.5-10.1); CO2 25 mmol/L (21-32); CREATININE 2.9 mg/dL (0.55-1.02); GLUCOSE,RANDOM 156 mg/dL (74-106); SGOT/AST 12 U/L (15-37); SGPT/ALT 14 U/L (12-78); TOT PROT 5.5 g/dl (6.4-8.2)
[2016-08-19] MEDS: DOCUSATE SODIUM 100 MG CAPSULE (FP) PO SCH ×3 (06:12→21:43)
[2016-08-19] MEDS: LEVOTHYROXINE NA 88 MCG TABLET (FP) PO SCH (06:12)
--- NOTE | 2016-08-19 08:59 | CONSULT ---
Consult - text type - Consultation Consultation Note: FULL CONSULT DICTATED IMP: DRY GANGRENE LEFT THUMB PLAN: AGREE WITH VASCULAR PLAN. I WILL HAVE dR Rao EVALUATE PATIENT WELL
--- NOTE | 2016-08-19 09:48 | CONS ---
DATE OF CONSULTATION: 08/19/2016 ORTHOPEDIC CONSULTATION Patient is a 76-year-old female with coronary artery disease, stenting, with aortic stenosis, hypercholesterolemia, pulmonary hypertension, regular hypertension, small cell lung CA status post chemotherapy, breast CA with chemotherapy, COPD, diverticular disease, who was recently in the hospital for right lower lobe pneumonia and GI bleed, who has now been admitted for gangrene of her left thumb. Patient has been worked up by cardiology and vascular for possible embolic phenomenon causing this gangrene. No history of recent fall or trauma. PHYSICAL EXAMINATION: Patient has dry gangrene of the distal aspect of the distal phalanx of the left thumb extending down close to the IP joint with no motion of the IP joint. Some distal erythema is present, as well. No streaking, no drainage. DIAGNOSTIC DATA: No x-rays have been ordered as of yet. White blood count is 6. IMPRESSION: Dry gangrene, left thumb. I agree with vascular followup. A CO2 angiogram will be performed to assess flow to the hand. Cardiology needs to work up possible embolic phenomenon. IV antibiotics have been administered. I will let Dr. Ward, hand surgeon for the group, evaluate the patient, as well. MEHRAN SHEA M.D. [id number]
[2016-08-19] MEDS: CARVEDILOL 12.5 MG TABLET (FP) PO SCH ×3 (10:23→21:44)
[2016-08-19] MEDS: predniSONE 10 MG TABLET (UD) PO SCH (10:23)
[2016-08-19] MEDS: SODIUM CHLORIDE 1,000 ML IV SCH ×2 (10:23→13:33)
[2016-08-19] MEDS: CITALOPRAM HYDROBROMIDE 20 MG TABLET (FP) PO SCH (10:23)
[2016-08-19] MEDS: FUROSEMIDE 40 MG/4 ML INJECTABLE VIAL IVPB SCH (10:23)
[2016-08-19] MEDS: HEPARIN NA (PORCINE) 5,000 UNITS/ML 1ML VIAL SQ SCH ×2 (10:24→21:49)
[2016-08-19] MEDS: PANTOPRAZOLE 40 MG TABLET (FP) PO SCH (10:24)
[2016-08-19] MEDS: BUDESONIDE/FORMETEROL FUMARATE 160/4.5 mcg INHALER IH SCH ×2 (10:24→21:48)
[2016-08-19] MEDS: CHOLECALCIFEROL (VITAMIN D3) 1,000 UNIT TABLET (FP) PO SCH (10:25)
--- NOTE | 2016-08-19 11:50 | PN ---
Progress Note, Physician Chief Complaint: patient seen and examined NPO awating to go to OR for CO2 angiogram - Current Medication List Current Medications: Active Medications Acetaminophen (Tylenol -) 650 mg PO Q4H PRN PRN Reason: FEVER OR PAIN Last Admin: 08/18/16 21:18 Dose: 650 mg Acetaminophen (Tylenol -) 650 mg PO Q6H PRN PRN Reason: PAIN LEVEL 6-10 Budesonide/Formoterol Fumarate (Symbicort 160/4.5mcg -) 2 puff IH BID [facility] Last Admin: 08/19/16 10:24 Dose: Not Given Carvedilol (Coreg -) 12.5 mg PO BID [facility] Last Admin: 08/19/16 10:23 Dose: Not Given Cholecalciferol (Vitamin D3 -) 1,000 unit PO DAILY [facility] Last Admin: 08/19/16 10:25 Dose: Not Given Citalopram Hydrobromide (Celexa -) 40 mg PO DAILY [facility] Last Admin: 08/19/16 10:23 Dose: Not Given Docusate Sodium (Colace -) 100 mg PO TID [facility] Last Admin: 08/19/16 06:12 Dose: Not Given Furosemide (Lasix Injection -) 40 mg IVPB DAILY [facility] Last Admin: 08/19/16 10:23 Dose: 40 mg Heparin Sodium (Porcine) (Heparin -) 5,000 unit SQ BID [facility] Last Admin: 08/19/16 10:24 Dose: Not Given Sodium Chloride (Normal Saline -) 1,000 mls @ 75 mls/hr IV ASDIR [facility] Last Admin: 08/19/16 10:23 Dose: 75 mls/hr Levothyroxine Sodium (Synthroid -) 88 mcg PO DAILY@0700 [facility] Last Admin: 08/19/16 06:12 Dose: Not Given Oxycodone HCl (Roxicodone -) 10 mg PO Q6H PRN PRN Reason: PAIN LEVEL 6-10 Last Admin: 08/18/16 21:15 Dose: 10 mg Pantoprazole Sodium (Protonix -) 40 mg PO DAILY [facility] Last Admin: 08/19/16 10:24 Dose: Not Given Prednisone (Deltasone -) 10 mg PO DAILY [facility] Last Admin: 08/19/16 10:23 Dose: Not Given - Objective Vital Signs: Vital Signs Temperature 98.6 F 08/19/16 09:00 Pulse Rate 86 08/19/16 09:00 Respiratory Rate 18 08/19/16 09:00 Blood Pressure 122/58 08/19/16 09:00 O2 Sat by Pulse Oximetry (%) 98 08/19/16 10:00 Constitutional: Yes: Calm, Thin Neck: Yes: Trachea Midline Cardiovascular: Yes: Regular Rate and Rhythm, S1, S2 Respiratory: Yes: CTA Bilaterally Gastrointestinal: Yes: Normal Bowel Sounds, Soft Extremities: Yes: Other (left thumb dry gangrene painful to touch) Edema: No Neurological: Yes: Alert, Oriented Labs: CBC, BMP 08/18/16 21:00 08/18/16 21:00 Problem List - Problems (1) Acute on chronic renal insufficiency Assessment/Plan: renal on board to get CO2 angiogram given renal fucntion duretic and ACEI on hold- stop lasix Code(s): N28.9 - DISORDER OF KIDNEY AND URETER, UNSPECIFIED N18.9 - CHRONIC KIDNEY DISEASE, UNSPECIFIED (2) Gangrene of thumb Assessment/Plan: NPO for OR today for C02 angiogram holter monitor to check PAF renal consult noted cannot get LESIA right now given creatinine dvt ppx Code(s): I96 - GANGRENE, NOT ELSEWHERE CLASSIFIED (3) Eosinophilia Assessment/Plan: work up in process on iv abx per ID Microbiology 08/17/16 13:32 Blood - Peripheral Venous Blood Culture - Preliminary NO GROWTH OBTAINED AFTER 24 HOURS, INCUBATION TO CONTINUE FOR 4 DAYS. 08/17/16 13:32 Blood - Peripheral Venous Blood Culture - Preliminary NO GROWTH OBTAINED AFTER 24 HOURS, INCUBATION TO CONTINUE FOR 4 DAYS. so far negative cultures no fever no wbc count Code(s): D72.1 - EOSINOPHILIA (4) COPD (chronic obstructive pulmonary disease) Assessment/Plan: bronchodilatoors Code(s): J44.9 - CHRONIC OBSTRUCTIVE PULMONARY DISEASE, UNSPECIFIED Qualifiers : COPD type: unspecified COPD Qualified Code(s): J44.9 - Chronic obstructive pulmonary disease, unspecified (5) Hypothyroid Assessment/Plan: on synthroid check tsh Code(s): E03.9 - HYPOTHYROIDISM, UNSPECIFIED Qualifiers: Hypothyroidism type: unspecified Qualified Code(s): E03.9 - Hypothyroidism, unspecified (6) CAD (coronary artery disease) Assessment/Plan: on coreg Code(s): I25.10 - ATHSCL HEART DISEASE OF [place] CORONARY ARTERY W/O ANG PCTRS Qualifiers: Coronary Disease-Associated Artery/Lesion type: [place] artery [place] vs. transplanted heart: [place] heart Associated angina: without angina Qualified Code(s): I25.10 - Atherosclerotic heart disease of [place] coronary artery without angina pectoris
--- NOTE | 2016-08-19 12:26 | PN ---
Progress Note (short form) - Note Progress Note: afebrile she is complaining of pain in her thumb Vital Signs Period Temp Pulse Resp BP Sys/Kennedy Pulse Ox Last 24 Hr 97.4 F-98.6 F 77-90 16-18 106-128/58-80 97-98 cor-rrr lungs scattered rhonchi abd soft,nt ext dry gangrene of the distal thumb tip with some mild proximal erythema CBC, BMP 08/18/16 21:00 08/18/16 21:00 Laboratory Tests 08/19/16 06:25 Random Vancomycin 11.227 Microbiology 08/17/16 13:32 Blood - Peripheral Venous Blood Culture - Preliminary NO GROWTH OBTAINED AFTER 24 HOURS, INCUBATION TO CONTINUE FOR 4 DAYS. 08/17/16 13:32 Blood - Peripheral Venous Blood Culture - Preliminary NO GROWTH OBTAINED AFTER 24 HOURS, INCUBATION TO CONTINUE FOR 4 DAYS. a/p gangrene of the distal tip of the thumb vascular/hand evaluation continue vancomycin based on levels cultures negative to date check esr/crp eren/ckd- f/ u urine eos history of lung and breast cancer
[2016-08-19] MEDS ORDERED: morphine CARPU-JECT 2 MG/1 ML DISP.SYRIN IVPUSH ONE (13:52)
[2016-08-19] MEDS ORDERED: VANCOMYCIN 500 MG in DEXTROSE 5%-WATER - 100 ML IVPB ONE (14:00)
--- NOTE | 2016-08-19 15:34 | PN ---
Progress Note, Physician History of Present Illness: Left thumb ischemic sxs, planned for CO2 angiogram. - Current Medication List Current Medications: Active Medications Acetaminophen (Tylenol -) 650 mg PO Q4H PRN PRN Reason: FEVER OR PAIN Last Admin: 08/18/16 21:18 Dose: 650 mg Acetaminophen (Tylenol -) 650 mg PO Q6H PRN PRN Reason: PAIN LEVEL 6-10 Budesonide/Formoterol Fumarate (Symbicort 160/4.5mcg -) 2 puff IH BID [facility] Last Admin: 08/19/16 10:24 Dose: Not Given Carvedilol (Coreg -) 12.5 mg PO BID [facility] Last Admin: 08/19/16 14:04 Dose: 12.5 mg Cholecalciferol (Vitamin D3 -) 1,000 unit PO DAILY [facility] Last Admin: 08/19/16 10:25 Dose: Not Given Citalopram Hydrobromide (Celexa -) 40 mg PO DAILY [facility] Last Admin: 08/19/16 10:23 Dose: Not Given Docusate Sodium (Colace -) 100 mg PO TID [facility] Last Admin: 08/19/16 13:33 Dose: Not Given Heparin Sodium (Porcine) (Heparin -) 5,000 unit SQ BID [facility] Last Admin: 08/19/16 10:24 Dose: Not Given Sodium Chloride (Normal Saline -) 1,000 mls @ 75 mls/hr IV ASDIR [facility] Last Admin: 08/19/16 13:33 Dose: Not Given Levothyroxine Sodium (Synthroid -) 88 mcg PO DAILY@0700 [facility] Last Admin: 08/19/16 06:12 Dose: Not Given Oxycodone HCl (Roxicodone -) 10 mg PO Q6H PRN PRN Reason: PAIN LEVEL 6-10 Last Admin: 08/18/16 21:15 Dose: 10 mg Pantoprazole Sodium (Protonix -) 40 mg PO DAILY [facility] Last Admin: 08/19/16 10:24 Dose: Not Given Prednisone (Deltasone -) 10 mg PO DAILY [facility] Last Admin: 08/19/16 10:23 Dose: Not Given - Objective Vital Signs: Vital Signs Temperature 98.6 F 08/19/16 09:00 Pulse Rate 86 08/19/16 09:00 Respiratory Rate 18 08/19/16 09:00 Blood Pressure 122/58 08/19/16 09:00 O2 Sat by Pulse Oximetry (%) 98 08/19/16 10:00 Constitutional: Yes: No Distress, Calm, Thin Neck: Yes: Supple Cardiovascular: Yes: Regular Rate and Rhythm Respiratory: Yes: Regular, Diminished Gastrointestinal: Yes: Normal Bowel Sounds, Soft Extremities: Yes: Other (Left thumb tip dry gangrene) Edema: No Labs: CBC, BMP 08/18/16 21:00 08/18/16 21:00 Problem List - Problems (1) Acute on chronic renal insufficiency Code(s): N28.9 - DISORDER OF KIDNEY AND URETER, UNSPECIFIED N18.9 - CHRONIC KIDNEY DISEASE, UNSPECIFIED (2) Gangrene of thumb Code(s): I96 - GANGRENE, NOT ELSEWHERE CLASSIFIED (3) ASHD (arteriosclerotic heart disease) Code(s): I25.10 - ATHSCL HEART DISEASE OF [place] CORONARY ARTERY W/O ANG PCTRS (4) Anemia Code(s): D64.9 - ANEMIA, UNSPECIFIED Qualifiers: Anemia type: due to other cause Other causes of anemia: chronic disease , kidney (5) Aortic stenosis Code(s): I35.0 - NONRHEUMATIC AORTIC (VALVE) STENOSIS Qualifiers: Cardiac valve disease etiology: nonrheumatic Qualified Code(s): I35.0 - Nonrheumatic aortic (valve) stenosis (6) COPD (chronic obstructive pulmonary disease) Code(s): J44.9 - CHRONIC OBSTRUCTIVE PULMONARY DISEASE, UNSPECIFIED Qualifiers : COPD type: unspecified COPD Qualified Code(s): J44.9 - Chronic obstructive pulmonary disease, unspecified (7) Diastolic dysfunction Code(s): I51.9 - HEART DISEASE, UNSPECIFIED (8) HTN (hypertension) Code(s): I10 - ESSENTIAL (PRIMARY) HYPERTENSION Qualifiers: Hypertension type: essential hypertension Qualified Code(s): I10 - Essential (primary) hypertension (9) Hypothyroid Code(s): E03.9 - HYPOTHYROIDISM, UNSPECIFIED Qualifiers: Hypothyroidism type: unspecified Qualified Code(s): E03.9 - Hypothyroidism, unspecified (10) S/P coronary artery stent placement Code(s): Z95.5 - PRESENCE OF CORONARY ANGIOPLASTY IMPLANT AND GRAFT (11) Tachycardia Code(s): R00.0 - TACHYCARDIA, UNSPECIFIED Assessment/Plan 08/18/2016 Normal biventricular size and fxn, mod , mild TR 1. Digital ischemia with dry gangrene of the tip of the left thumb 2. 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 Post recent right lower lobe Pneumonia 4. Gait dysfunction and near syncope due to postural hypotension 5. CAD post PCI/stent, angina pectoris 6. Diastolic left ventricular dysfunction with class 0-I NYHA classification LV failure and pulmonary HTN 7. Aortic valve disease, moderate aortic valve stenosis 8. HTN/HCVD 9. Hypercholesterolemia 10. Hypothyroidism 11. COPD with chronic hypoxemic respiratory failure 12. History of small cell lung carcinoma post chemotherapy 13. History of breast carcinoma post lumpectomy and chemotherapy 14. Acute on CKD consider intravascular volume depletion vs. embolic kidney disease vs. normotensive ATN 15. Anemia PLAN: 1. Check holter to assess for PAF, will consider LESIA to assess cardioembolic source, plan for CO2 angiogram, may proceed from CV-standpoint 2. F/u urine eosinophils, we may be looking at systemic embolization, Lasix held , gentle hydration with monitor renal fxn 2. Continue Coreg 12.5 mg bid 3. Consider heparin gtt with cautious monitor Hgb despite recent GI bleed 4. Empiric antibiotic course per C&S 5. Continue to hold Lisinopril and diuretics pending renal function stabilization
--- NOTE | 2016-08-19 15:49 | PN ---
Progress Note (short form) - Note Progress Note: Renal Follow up for FRANK on CKD Pt seen and examined at the bedside awake and alert upset procedure has not been done yet has pain in the finger no sob, chest pain on IVF Vital Signs Temperature 98.6 F 08/19/16 09:00 Pulse Rate 86 08/19/16 09:00 Respiratory Rate 18 08/19/16 09:00 Blood Pressure 122/58 08/19/16 09:00 O2 Sat by Pulse Oximetry (%) 98 08/19/16 10:00 Intake & Output 08/16/16 08/17/16 08/18/16 08/19/16 23:59 23:59 23:59 23:59 Intake Total 520 950 Balance 520 950 Weight 100 lb 100 lb 86 lb 9.6 oz Gen: NAD, on NC, awake and alert CVS: RRR, no rub Lungs: Dec BS throughout the lung robertson, no rales Abd: soft NT/ND Ext: No edema, clubbing or cyanosis, discoloration of left thumb A/P 76 year old woman with PMhx of CKD Stage 4 (baseline Cr 1.8), Aortic Stenosis, CAD s/p Stent, Hypertension, Pulmonary Hypertension, COPD, Small Cell Lung Ca, Hypthroidism who presented to the ED with complaints of a discolored thumb. #Acute on Chronic Renal Insufficiency/Contrast Nephropathy risk stratification Etiology of FRANK unclear but could be intravascular volume depletion vs. embolic kidney disease vs. normotensive ATN Renal function w/o significant change continue IVF got IV lasix this am, would hold any further diuretics check Renal US to r/o wedge appearing lesions that could be indicative of renal infarction urine studies are pending #Discoloration of thumb etiology likely embolic for CO2 angiogram #Anemia Ternd CBC Check iron studies Transfuse as needed per protocol Thank you Will follow Eric Mendoza DO
--- NOTE | 2016-08-19 16:27 | PN ---
Progress Note (short form) - Note Progress Note: The pt is a 76 year old female with a necrotic thumb. I discussed this patient with Dr Thompson's PA earlier in the week. In summary she is a vascular patient, and has a dry, necrotic thumb. She may need debridement or a partial amputation. I recommended consulting a hand vascular surgeon. She is being seen by Dr Husain (Vascular), who ordered a variety of vascular examinations. I would defer to him as I believe this is a vascular issue, not an orthopedic issue. I am signing off on this case but I am available if needed for additional consultation.
[2016-08-19] MEDS ORDERED: MIDAZOLAM HCL 2 MG/2 ML SINGLE DOSE VIAL ONE ×2 (17:22→17:57)
[2016-08-19] MEDS ORDERED: PT OWN MED DRAWER 7, Y5N ONE (17:32)
[2016-08-19] MEDS ORDERED: LIDOCAINE HCL 1%, 10 MG/ML (50 mL VIAL) INF ONE ×2 (17:46)
--- NOTE | 2016-08-19 18:17 | PN ---
Progress Note (short form) - Note Progress Note: Vascular Surgery Pt seen and examined. Left upper ext angiogram performed. Pt's ulnar artery is the main artery that feeds the hand. The radial artery comes to the wrist and then branches off into collaterals. Pt has a incomplete arch in the hand. There was no arterial stenosis to open, nor was there a embolus present. This is just small vessel disease in her hand. Pt currently has dry gangrene of the tip of the thumb. As a vascular surgeon I do not do finger amputations. Hand surgery or plastic surgery should do finger amputation/debridement. cont present care. Orlando Husain DO
[2016-08-19] MEDS ORDERED: ONDANSETRON 4 MG/2 ML VIAL IVPUSH PRN (18:22)
[2016-08-19] MEDS ORDERED: ACETAMINOPHEN 325 MG TABLET (FP) PO PRN ×2 (18:33)
[2016-08-19] MEDS ORDERED: SODIUM CHLORIDE 1,000 ML IV SCH (18:33)
[2016-08-20] MEDS: DOCUSATE SODIUM 100 MG CAPSULE (FP) PO SCH ×3 (06:43→23:03)
[2016-08-20] MEDS: LEVOTHYROXINE NA 88 MCG TABLET (FP) PO SCH (06:43)
[2016-08-20 08:30] LABS: BASOPHIL 0.5 % (0-2.0); EOSINOPHIL 2.6 % (0-4.5); MCH 30.1 pg (25.7-33.7); MCHC 33.1 g/dl (32.0-36.0); MEAN CELL VOLUME 90.8 fl (80-96); NEUTROPHILS 67.3 % (42.8-82.8); PLATELET COUNT 243 K/MM3 (134-434); RDW 15.5 % (11.6-15.6); WHITE BLOOD COUNT 7.6 K/mm3 (4.0-10.0)
[2016-08-20 08:39] LABS: ALBUMIN 1.8 g/dl (3.4-5.0); ANION GAP 7 (8-16); BILIRUBIN,TOTAL 0.2 mg/dL (0.2-1.0); CALCIUM 7.9 mg/dL (8.5-10.1); CO2 27 mmol/L (21-32); CREATININE 2.4 mg/dL (0.55-1.02); GLUCOSE,RANDOM 81 mg/dL (74-106); PHOSPHOROUS 4.3 mg/dL (2.5-4.9); SGOT/AST 15 U/L (15-37); SGPT/ALT 11 U/L (12-78); TOT PROT 5.4 g/dl (6.4-8.2)
[2016-08-20 08:42] LABS: ALK PHOS 74 U/L (45-117)
--- NOTE | 2016-08-20 09:03 | PN ---
Progress Note (short form) - Note Progress Note: Renal Follow up for FRANK on CKD Pt seen and examined at the bedside s/p CO2 angiogram continues to have pain in left thumb denies any sob, chest pain on IVF good urine output Vital Signs Temperature 98 F 08/19/16 22:00 Pulse Rate 85 08/19/16 22:00 Respiratory Rate 19 08/19/16 22:00 Blood Pressure 98/47 08/19/16 22:00 O2 Sat by Pulse Oximetry (%) 97 08/19/16 21:00 Intake & Output 08/17/16 08/18/16 08/19/16 08/20/16 23:59 23:59 23:59 23:59 Intake Total 520 2650 900 Output Total 30 Balance 520 2620 900 Weight 100 lb 100 lb 86 lb 9.6 oz 87 lb 1.6 oz Gen: NAD, on NC, awake and alert CVS: RRR, no rub Lungs: Dec BS throughout the lung rober[place], no rales Abd: soft NT/ND Ext: No edema, clubbing or cyanosis, discoloration of left thumb CBC, BMP 08/20/16 06:00 08/20/16 06:00 Laboratory Tests 08/20/16 06:00 Calcium 7.9 L Phosphorus 4.3 Magnesium 2.0 D Albumin 1.8 L Current Medications Acetaminophen (Tylenol -) 650 mg PO Q4H PRN PRN Reason: FEVER OR PAIN Acetaminophen (Tylenol -) 650 mg PO Q6H PRN PRN Reason: PAIN LEVEL 6-10 Budesonide/Formoterol Fumarate (Symbicort 160/4.5mcg -) 2 puff IH BID [facility] Last Admin: 08/19/16 21:48 Dose: Not Given Carvedilol (Coreg -) 12.5 mg PO BID [facility] Last Admin: 08/19/16 21:44 Dose: Not Given Cholecalciferol (Vitamin D3 -) 1,000 unit PO DAILY [facility] Citalopram Hydrobromide (Celexa -) 40 mg PO DAILY [facility] Docusate Sodium (Colace -) 100 mg PO TID [facility] Last Admin: 08/20/16 06:43 Dose: 100 mg Heparin Sodium (Porcine) (Heparin -) 5,000 unit SQ BID [facility] Last Admin: 08/19/16 21:49 Dose: 5,000 unit Sodium Chloride (Normal Saline -) 1,000 mls @ 75 mls/hr IV ASDIR [facility] Last Admin: 08/19/16 20:02 Dose: 75 mls/hr Levothyroxine Sodium (Synthroid -) 88 mcg PO DAILY@0700 [facility] Last Admin: 08/20/16 06:43 Dose: 88 mcg Oxycodone HCl (Roxicodone -) 10 mg PO Q6H PRN PRN Reason: PAIN LEVEL 6-10 Pantoprazole Sodium (Protonix -) 40 mg PO DAILY [facility] Prednisone (Deltasone -) 10 mg PO DAILY [facility] A/P 76 year old woman with PMhx of CKD Stage 4 (baseline Cr 1.8), Aortic Stenosis, CAD s/p Stent, Hypertension, Pulmonary Hypertension, COPD, Small Cell Lung Ca, Hypthroidism who presented to the ED with complaints of a discolored thumb. 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
--- NOTE | 2016-08-20 09:46 | DS ---
Physical Examination Vital Signs: Vital Signs Temperature 98 F 08/19/16 22:00 Pulse Rate 85 08/19/16 22:00 Respiratory Rate 19 08/19/16 22:00 Blood Pressure 98/47 08/19/16 22:00 O2 Sat by Pulse Oximetry (%) 97 08/19/16 21:00 Findings/Remarks: PATIENT WANTS TO GO HOME I DISCUSSED WITH HER THE NEED FOR SURGICAL INTERVENTION SHE UNDERSTANDS NEED FOR AMPUTATION I EILL DISCUSS WITH ID AND SURGERY REGARDING FURTHER PLAN Cardiovascular: Yes: S1, S2 Respiratory: Yes: Regular, CTA Bilaterally Gastrointestinal: Yes: Normal Bowel Sounds, Soft Extremities: Yes: Other (GANGRENE OF THE THUMB WITH DISCOLARATION TO TNE BASE) Labs: CBC, BMP 08/20/16 06:00 08/20/16 06:00 Discharge Summary Reason For Visit: GANGRENE OF THUMB, ACUTE ON CHRONIC RENAL FAILURE Current Active Problems Acute on chronic renal insufficiency (Acute) Eosinophilia (Acute) Gangrene of thumb (Acute) Hospital Course: History of Present Illness: 76 year old female, with a significant past medical history of aortic stenosis, CAD s/p stent and PCI, HTN, HLD, mitral insufficiency, pulmonary HTN, COPD, small cell carcinoma s/p chemo, lung CA O2 dependent, renal failure, chronic lower back pain, and hypothyroidism who presents to the emergency department with left thumb pain and discoloration. Patient reports recently being admitted to the hospital for COPD and pneumonia. She reports shortly after her discharge having left thumb pain, erythema and dislocation, now noting her thumb turning black in color. She denies recent fevers, chills, headache or dizziness. She denies recent nausea, vomit, diarrhea or constipation. She denies recent dysuria, frequency, urgency or hematuria. She denies recent chest pain or shortness of breath. - Past Medical History Cardiovascular: Yes: Aortic Stenosis, CAD (with coronary stenting), HTN, Hyperlipdemia, Mitral Insufficiency, Pulmonary Hypertension Pulmonary: Yes: Cancer (Chemothrerapy for small cell carcinoma- Dr Simpson), COPD Gastrointestinal: Yes: Diverticulosis, Other (Breast lumpectomy) Renal/: Yes: Renal Failure, Renal Inusuff Heme/Onc: Yes: Cancer Psych: Yes: Anxiety Musculoskeletal: Yes: Chronic low back pain, Osteoarthritis Endocrine: Yes: Hypothyroidism, Osteopenia - Past Surgical History Past Surgical History: Yes: Laminectomy (cervical '99, lumbar '97), Stent, Tonsillectomy, Tubal Ligation - Smoking History Smoking history: Former smoker Have you smoked in the past 12 months: No Aproximately how many cigarettes per day: 0 If you are a former smoker, when did you quit?: 13 YRS - Problems (1) Acute on chronic renal insufficiency Assessment/Plan: renal on board to get CO2 angiogram given renal fucntion duretic and ACEI on hold- stop lasix Code(s): N28.9 - DISORDER OF KIDNEY AND URETER, UNSPECIFIED N18.9 - CHRONIC KIDNEY DISEASE, UNSPECIFIED (2) Gangrene of thumb Assessment/Plan: D/W VASCULAR VASCULAR Left upper ext angiogram performed. Pt's ulnar artery is the main artery that feeds the hand. The radial artery comes to the wrist and then branches off into collaterals. Pt has a incomplete arch in the hand. There was no arterial stenosis to open, nor was there a embolus present. This is just small vessel disease in her hand. Pt currently has dry gangrene of the tip of the thumb. As a vascular surgeon I do not do finger amputations. Hand surgery or plastic surgery should do finger amputation/debridement. cont present care. Orlando Paniaguael WILL AWAIR SURGICAL FOLLOW UP Code(s): I96 - GANGRENE, NOT ELSEWHERE CLASSIFIED (3) Eosinophilia Assessment/Plan: work up in process iv abx per ID Microbiology 08/17/16 13:32 Blood - Peripheral Venous Blood Culture - Preliminary NO GROWTH OBTAINED AFTER 24 HOURS, INCUBATION TO CONTINUE FOR 4 DAYS. 08/17/16 13:32 Blood - Peripheral Venous Blood Culture - Preliminary NO GROWTH OBTAINED AFTER 24 HOURS, INCUBATION TO CONTINUE FOR 4 DAYS. so far negative cultures no fever no wbc count Code(s): D72.1 - EOSINOPHILIA (4) COPD (chronic obstructive pulmonary disease) Assessment/Plan: bronchodilators CHECK PULSE OX Code(s): J44.9 - CHRONIC OBSTRUCTIVE PULMONARY DISEASE, UNSPECIFIED Qualifiers : COPD type: unspecified COPD Qualified Code(s): J44.9 - Chronic obstructive pulmonary disease, unspecified (5) Hypothyroid Assessment/Plan: on synthroid check tsh Code(s): E03.9 - HYPOTHYROIDISM, UNSPECIFIED Qualifiers: Hypothyroidism type: unspecified Qualified Code(s): E03.9 - Hypothyroidism, unspecified (6) CAD (coronary artery disease) Assessment/Plan: on coreg Code(s): I25.10 - ATHSCL HEART DISEASE OF [place] CORONARY ARTERY W/O ANG PCTRS Qualifiers: Coronary Disease-Associated Artery/Lesion type: [place] artery [place] vs. transplanted heart: [place] heart Associated angina: without angina Qualified Code(s): I25.10 - Atherosclerotic heart disease of [place] coronary artery without angina pectoris Condition: Improved - Instructions Referrals: Isaiah Thompson MD [Primary Care Provider] - Disposition: VNS/HOME HEALTH CARE - Home Medications Comprehensive Discharge Medication List: Ambulatory Orders Acetaminophen [Tylenol .Regular Strength -] 650 mg PO Q4H PRN #0 tablet Albuterol 2.5/Ipratropium 0.5 [Duoneb -] 1 amp NEB QIDR amp 08/05/16 Budesonide/Formeterol Fumarate [SYMBICORT 160/4.5mcg -] 2 puff IH BID #1 inhaler 08/05/16 Carvedilol [Coreg -] 12.5 mg PO BID tablet 08/05/16 Cholecalciferol (Vitamin D3) [Vitamin D3 -] 1,000 unit PO DAILY tab 08/05/16 Citalopram Hydrobromide [Celexa -] 40 mg PO DAILY tablet 08/05/16 Docusate Sodium [Colace -] 100 mg PO TID #90 tab 08/05/16 Levothyroxine [Synthroid -] 88 mcg PO DAILY@0700 tablet 08/05/16 Oxycodone HCl [Roxicodone -] 5 mg PO Q4H PRN #0 tablet MDD 6 08/05/16 Pantoprazole Sodium [Protonix -] 40 mg PO DAILY #30 tab 08/05/16 Prednisone [Deltasone -] 10 mg PO DAILY #30 tablet 08/05/16
[2016-08-20] MEDS: HEPARIN NA (PORCINE) 5,000 UNITS/ML 1ML VIAL SQ SCH ×2 (10:55→23:04)
[2016-08-20] MEDS: CHOLECALCIFEROL (VITAMIN D3) 1,000 UNIT TABLET (FP) PO SCH (11:00)
[2016-08-20] MEDS: CITALOPRAM HYDROBROMIDE 20 MG TABLET (FP) PO SCH (11:00)
[2016-08-20] MEDS: predniSONE 10 MG TABLET (UD) PO SCH (11:00)
[2016-08-20] MEDS: PANTOPRAZOLE 40 MG TABLET (FP) PO SCH (11:00)
[2016-08-20] MEDS: CARVEDILOL 12.5 MG TABLET (FP) PO SCH ×3 (11:40→23:03)
[2016-08-20] MEDS: BUDESONIDE/FORMETEROL FUMARATE 160/4.5 mcg INHALER IH SCH ×2 (11:48→23:05)
[2016-08-20] MEDS ORDERED: VANCOMYCIN 500 MG in DEXTROSE 5%-WATER - 100 ML IVPB ONE (12:57)
--- NOTE | 2016-08-20 13:02 | PN ---
Progress Note (short form) - Note Progress Note: afebrile she is complaining of pain in her thumb Vital Signs Period Temp Pulse Resp BP Sys/Kennedy Pulse Ox Last 24 Hr 97.6 F-99.3 F 79-97 17-20 98-127/47-76 93-100 cor-rrr lungs clear abd soft,nt ext +dry gangrene of the tip of the thumb CBC, BMP 08/20/16 06:00 08/20/16 06:00 Microbiology 08/17/16 13:32 Blood - Peripheral Venous Blood Culture - Preliminary NO GROWTH OBTAINED AFTER 48 HOURS, INCUBATION TO CONTINUE FOR 3 DAYS. 08/17/16 13:32 Blood - Peripheral Venous Blood Culture - Preliminary NO GROWTH OBTAINED AFTER 48 HOURS, INCUBATION TO CONTINUE FOR 3 DAYS. a/p gangrene of the distal tip of the thumb some associated cellulitis/discoloration noted todayd/w vanco/zosyn follow vanco levels d/w Dr Thompson- for plastic surgery evaluation eren/ckd-improved history of lung and breast cancer d/w daughters at bedside
[2016-08-20] MEDS: PIPERACILLIN/TAZOB 2.25 GM 50 ML IVPB SCH ×2 (13:12→15:49)
--- NOTE | 2016-08-20 14:42 | PN ---
Progress Note (short form) - Note Progress Note: D/W PTS DAUGHTER AND DR MEDEROS --WILL CONTINUE WITH IV ABX SURGICAL FOLLOW UP Problem List - Problems (1) Acute on chronic renal insufficiency Code(s): N28.9 - DISORDER OF KIDNEY AND URETER, UNSPECIFIED N18.9 - CHRONIC KIDNEY DISEASE, UNSPECIFIED (2) Gangrene of thumb Code(s): I96 - GANGRENE, NOT ELSEWHERE CLASSIFIED (3) Anemia Code(s): D64.9 - ANEMIA, UNSPECIFIED Qualifiers: Anemia type: due to other cause Other causes of anemia: chronic disease , kidney (4) CHF (congestive heart failure) Code(s): I50.9 - HEART FAILURE, UNSPECIFIED Qualifiers: Congestive heart failure type: diastolic Congestive heart failure chronicity: acute on chronic Qualified Code(s): I50.33 - Acute on chronic diastolic (congestive) heart failure (5) COPD (chronic obstructive pulmonary disease) Code(s): J44.9 - CHRONIC OBSTRUCTIVE PULMONARY DISEASE, UNSPECIFIED Qualifiers : COPD type: unspecified COPD Qualified Code(s): J44.9 - Chronic obstructive pulmonary disease, unspecified
--- NOTE | 2016-08-20 14:52 | PN ---
Progress Note (short form) - Note Progress Note: Vascular Surgery Pt seen and examined. Doing well Palpable radial and ulnar pulse. Explained angiogram results to family. They are waiting for plastics to come to evaluate for a finger tip amputation. Orlando Husain DO
[2016-08-20] MEDS ORDERED: MEROPENEM 500 MG VIAL (RESTRICTED TO ID) IVPB SCH (15:45)
--- NOTE | 2016-08-20 16:28 | PN ---
Progress Note, Physician Chief Complaint: Events noted Dry gangrene of left thumb History of Present Illness: Patient was seen and examined. Awake and alert. Chart was reviewed Family by bedside and concerned about the gangrenous thumb Discussed with Vascular surgery - Dr. Husain and Dr. Ortiz who also spoke with Dr. Thompson. Orthopedic input noted. Currently await Plastic surgery evaluation. Discussed with family regarding above plan for Plastic surgical consultation - Current Medication List Current Medications: Active Medications Acetaminophen (Tylenol -) 650 mg PO Q4H PRN PRN Reason: FEVER OR PAIN Acetaminophen (Tylenol -) 650 mg PO Q6H PRN PRN Reason: PAIN LEVEL 6-10 Budesonide/Formoterol Fumarate (Symbicort 160/4.5mcg -) 2 puff IH BID [facility] Last Admin: 08/20/16 11:48 Dose: 2 puff Carvedilol (Coreg -) 12.5 mg PO BID [facility] Last Admin: 08/20/16 11:55 Dose: 12.5 mg Cholecalciferol (Vitamin D3 -) 1,000 unit PO DAILY [facility] Last Admin: 08/20/16 11:00 Dose: 1,000 unit Citalopram Hydrobromide (Celexa -) 40 mg PO DAILY [facility] Last Admin: 08/20/16 11:00 Dose: 40 mg Docusate Sodium (Colace -) 100 mg PO TID [facility] Last Admin: 08/20/16 13:13 Dose: 100 mg Heparin Sodium (Porcine) (Heparin -) 5,000 unit SQ BID [facility] Last Admin: 08/20/16 10:55 Dose: 5,000 unit Meropenem 500 mg/ Dextrose 100 mls @ 200 mls/hr IVPB BID@0500,1700 [facility] Lactobacillus Acidophilus (Bacid -) 1 tab PO DAILY [facility] Levothyroxine Sodium (Synthroid -) 88 mcg PO DAILY@0700 [facility] Last Admin: 08/20/16 06:43 Dose: 88 mcg Oxycodone HCl (Roxicodone -) 10 mg PO Q6H PRN PRN Reason: PAIN LEVEL 6-10 Pantoprazole Sodium (Protonix -) 40 mg PO DAILY [facility] Last Admin: 08/20/16 11:00 Dose: 40 mg Prednisone (Deltasone -) 10 mg PO DAILY [facility] Last Admin: 08/20/16 11:00 Dose: 10 mg - Objective Vital Signs: Vital Signs Temperature 99.3 F 08/20/16 14:06 Pulse Rate 77 08/20/16 14:06 Respiratory Rate 22 08/20/16 14:06 Blood Pressure 95/54 08/20/16 14:06 O2 Sat by Pulse Oximetry (%) 98 08/20/16 09:51 Neck: Yes: Supple Cardiovascular: Yes: Regular Rate and Rhythm, S1, S2 Respiratory: Yes: CTA Bilaterally Gastrointestinal: Yes: Normal Bowel Sounds, Soft. No: Tenderness Extremities: Yes: Other (Dry gangrene left thumb) Edema: No Additional Findings/Remarks: - Review of Systems Constitutional: denies: Chills, Fever Cardiovascular: denies: Shortness of Breath. denies: Chest Pain, Palpitations Respiratory: denies: Cough, SOB, SOB on Exertion. denies: Hemoptysis, Orthopnea , PND, Wheezing Gastrointestinal: denies: Abdominal Pain, Constipation, Diarrhea, Melena, Nausea , Rectal Bleeding, Vomiting Musculoskeletal: denies: Joint Pain Neurological: denies: Dizziness, Headache, Seizure, Syncope Labs: CBC, BMP 08/20/16 06:00 08/20/16 06:00 Problem List - Problems (1) Acute on chronic renal insufficiency Code(s): N28.9 - DISORDER OF KIDNEY AND URETER, UNSPECIFIED N18.9 - CHRONIC KIDNEY DISEASE, UNSPECIFIED (2) Gangrene of thumb Code(s): I96 - GANGRENE, NOT ELSEWHERE CLASSIFIED (3) ASHD (arteriosclerotic heart disease) Code(s): I25.10 - ATHSCL HEART DISEASE OF [place] CORONARY ARTERY W/O [facility] PCTRS (4) Anemia Code(s): D64.9 - ANEMIA, UNSPECIFIED Qualifiers: Anemia type: due to other cause Other causes of anemia: chronic disease , kidney (5) Aortic stenosis Code(s): I35.0 - NONRHEUMATIC AORTIC (VALVE) STENOSIS Qualifiers: Cardiac valve disease etiology: nonrheumatic Qualified Code(s): I35.0 - Nonrheumatic aortic (valve) stenosis (6) Breast CA Code(s): C50.919 - MALIGNANT NEOPLASM OF UNSP SITE OF UNSPECIFIED FEMALE BREAST (7) CAD (coronary artery disease) Code(s): I25.10 - ATHSCL HEART DISEASE OF [place] CORONARY ARTERY W/O ANG PCTRS Qualifiers: Coronary Disease-Associated Artery/Lesion type: [place] artery [place] vs. transplanted heart: [place] heart Associated angina: without angina Qualified Code(s): I25.10 - Atherosclerotic heart disease of [place] coronary artery without angina pectoris (8) CHF (congestive heart failure) Code(s): I50.9 - HEART FAILURE, UNSPECIFIED Qualifiers: Congestive heart failure type: diastolic Congestive heart failure chronicity: acute on chronic Qualified Code(s): I50.33 - Acute on chronic diastolic (congestive) heart failure (9) COPD (chronic obstructive pulmonary disease) Code(s): J44.9 - CHRONIC OBSTRUCTIVE PULMONARY DISEASE, UNSPECIFIED Qualifiers : COPD type: unspecified COPD Qualified Code(s): J44.9 - Chronic obstructive pulmonary disease, unspecified (10) Diastolic dysfunction Code(s): I51.9 - HEART DISEASE, UNSPECIFIED (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 Digital ischemia with dry gangrene of the tip of the left thumb 2. History of upper gastrointestinal bleed referable to duodenal AVMs post cautery 3. Post recent right lower lobe Pneumonia 4. Gait dysfunction and near syncope due to postural hypotension 5. CAD post PCI/stent, angina pectoris 6. Diastolic left ventricular dysfunction with class 0-I NYHA classification LV failure and pulmonary HTN 7. Aortic valve disease with moderate aortic valve stenosis 8. HTN/HCVD 9. Hypercholesterolemia 10. Hypothyroidism 11. COPD with chronic hypoxemic respiratory failure 12. History of small cell lung carcinoma post chemotherapy 13. History of breast carcinoma post lumpectomy and chemotherapy 14. Acute on CKD consider intravascular volume depletion vs. embolic kidney disease vs. normotensive ATN 15. Anemia PLAN: 1. As per Vascular surgical input, will need Plastic surgical input whether she will need thumb amputation. This is probably not an embolic phenomena and doubt LESIA has a role at this time 2. Monitor electrolytes and renal function 2. Continue Coreg 12.5 mg bid 3. Heparin SQ for prophylaxis 4. Empiric antibiotic course 5. Continue to hold Lisinopril and diuretics pending renal function stabilization Further plans are to follow Guarded Michael Steward MD
[2016-08-20] MEDS ORDERED: PT OWN MED DRAWER 7, Y5N ONE ×2 (17:40→22:39)
[2016-08-20] MEDS: LACTOBACILLUS ACIDOPHILUS 1 EACH TAB (FP) PO SCH (17:49)
[2016-08-20] MEDS: MEROPENEM 500 MG in DEXTROSE 5%-WATER - 100 ML IVPB SCH (17:56)
[2016-08-20] MEDS: oxyCODONE HCL 5 MG TABLET PO PRN (23:08)
[2016-08-21] MEDS ORDERED: SODIUM CHLORIDE 1,000 ML IV SCH (00:45)
[2016-08-21 01:53] LABS: URINE APPEARANCE CLEAR; URINE BILIRUBIN NEGATIVE (NEGATIVE); URINE BLOOD NEGATIVE (NEGATIVE); URINE COLOR STRAW; URINE GLUCOSE (UA) NEGATIVE (NEGATIVE); URINE KETONE NEGATIVE (NEGATIVE); URINE LEUK ESTERASE NEGATIVE (NEGATIVE); URINE NITRITE NEGATIVE (NEGATIVE); URINE PROTEIN NEGATIVE (NEGATIVE); URINE UROBILINOGEN NEGATIVE E.U./dl (0.2-1.0)
[2016-08-21 02:03] LABS: URINE CREATININE 31.5 mg/dL (20-320)
[2016-08-21] MEDS: DOCUSATE SODIUM 100 MG CAPSULE (FP) PO SCH (05:44)
[2016-08-21] MEDS: MEROPENEM 500 MG in DEXTROSE 5%-WATER - 100 ML IVPB SCH (05:44)
[2016-08-21] MEDS: oxyCODONE HCL 5 MG TABLET PO PRN (05:57)
[2016-08-21] MEDS: LEVOTHYROXINE NA 88 MCG TABLET (FP) PO SCH (06:25)
[2016-08-21 06:36] LABS: SERUM IRON 24 ug/dL (27-139); TOTAL IRON BINDING CAPACITY 154 ug/dL (250-450); UIBC 130 ug/dL (118-369)
--- NOTE | 2016-08-21 07:22 | PN ---
Progress Note, Physician Chief Complaint: s/p LUE angiogram under MAC anesthesia History of Present Illness: post op day one - Current Medication List Current Medications: Active Medications Acetaminophen (Tylenol -) 650 mg PO Q4H PRN PRN Reason: FEVER OR PAIN Acetaminophen (Tylenol -) 650 mg PO Q6H PRN PRN Reason: PAIN LEVEL 6-10 Budesonide/Formoterol Fumarate (Symbicort 160/4.5mcg -) 2 puff IH BID [facility] Last Admin: 08/20/16 23:05 Dose: 2 puff Carvedilol (Coreg -) 12.5 mg PO BID [facility] Last Admin: 08/20/16 23:03 Dose: 12.5 mg Cholecalciferol (Vitamin D3 -) 1,000 unit PO DAILY [facility] Last Admin: 08/20/16 11:00 Dose: 1,000 unit Citalopram Hydrobromide (Celexa -) 40 mg PO DAILY [facility] Last Admin: 08/20/16 11:00 Dose: 40 mg Docusate Sodium (Colace -) 100 mg PO TID [facility] Last Admin: 08/21/16 05:44 Dose: 100 mg Heparin Sodium (Porcine) (Heparin -) 5,000 unit SQ BID [facility] Last Admin: 08/20/16 23:04 Dose: 5,000 unit Meropenem 500 mg/ Dextrose 100 mls @ 200 mls/hr IVPB BID@0500,1700 [facility] Last Admin: 08/21/16 05:44 Dose: 200 mls/hr Sodium Chloride (Normal Saline -) 1,000 mls @ 83 mls/hr IV ASDIR [facility] Last Admin: 08/21/16 01:39 Dose: 83 mls/hr Lactobacillus Acidophilus (Bacid -) 1 tab PO DAILY [facility] Last Admin: 08/20/16 17:49 Dose: 1 tab Levothyroxine Sodium (Synthroid -) 88 mcg PO DAILY@0700 [facility] Last Admin: 08/21/16 06:25 Dose: 88 mcg Oxycodone HCl (Roxicodone -) 10 mg PO Q6H PRN PRN Reason: PAIN LEVEL 6-10 Last Admin: 08/21/16 05:57 Dose: 10 mg Pantoprazole Sodium (Protonix -) 40 mg PO DAILY [facility] Last Admin: 08/20/16 11:00 Dose: 40 mg Prednisone (Deltasone -) 10 mg PO DAILY [facility] Last Admin: 08/20/16 11:00 Dose: 10 mg - Objective Vital Signs: Vital Signs Temperature 97.9 F 08/21/16 06:00 Pulse Rate 87 08/21/16 06:00 Respiratory Rate 18 08/21/16 06:00 Blood Pressure 137/58 08/21/16 06:00 O2 Sat by Pulse Oximetry (%) 98 08/20/16 21:00 Constitutional: Yes: Well Nourished Cardiovascular: Yes: WNL Respiratory: Yes: WNL Gastrointestinal: Yes: WNL Labs: CBC, BMP 08/20/16 06:00 08/20/16 06:00 Assessment/Plan no adeverse reactions to anesthetic, tolerating PO, no nausea or vomiting. Dept of anesthesia will sign off at this time
[2016-08-21 09:02] LABS: BASOPHIL 0.5 % (0-2.0); EOSINOPHIL 1.9 % (0-4.5); MCH 30.2 pg (25.7-33.7); MCHC 33.5 g/dl (32.0-36.0); MEAN CELL VOLUME 90.1 fl (80-96); MEAN PLT VOLUME 6.6 fl (7.5-11.1); NEUTROPHILS 68.1 % (42.8-82.8); PLATELET COUNT 215 K/MM3 (134-434); RDW 15.6 % (11.6-15.6); WHITE BLOOD COUNT 6.9 K/mm3 (4.0-10.0)
[2016-08-21 09:17] LABS: ALBUMIN 1.7 g/dl (3.4-5.0); ALK PHOS 66 U/L (45-117); ANION GAP 6 (8-16); BILIRUBIN,TOTAL 0.3 mg/dL (0.2-1.0); CALCIUM 7.7 mg/dL (8.5-10.1); CO2 27 mmol/L (21-32); CREATININE 2.2 mg/dL (0.55-1.02); GLUCOSE,RANDOM 80 mg/dL (74-106); MAGNESIUM 1.9 mg/dL (1.8-2.4); SGOT/AST 18 U/L (15-37); SGPT/ALT 12 U/L (12-78)
[2016-08-21] MEDS: LACTOBACILLUS ACIDOPHILUS 1 EACH TAB (FP) PO SCH (09:22)
[2016-08-21] MEDS: CITALOPRAM HYDROBROMIDE 20 MG TABLET (FP) PO SCH (09:26)
[2016-08-21] MEDS: predniSONE 10 MG TABLET (UD) PO SCH (09:26)
[2016-08-21] MEDS: PANTOPRAZOLE 40 MG TABLET (FP) PO SCH (09:27)
[2016-08-21] MEDS: HEPARIN NA (PORCINE) 5,000 UNITS/ML 1ML VIAL SQ SCH (09:27)
[2016-08-21] MEDS: CHOLECALCIFEROL (VITAMIN D3) 1,000 UNIT TABLET (FP) PO SCH (09:28)
[2016-08-21] MEDS ORDERED: PT OWN MED DRAWER 7, Y5N ONE ×2 (09:43→10:10)
[2016-08-21] MEDS: CARVEDILOL 12.5 MG TABLET (FP) PO SCH (09:47)
[2016-08-21] MEDS: BUDESONIDE/FORMETEROL FUMARATE 160/4.5 mcg INHALER IH SCH (09:49)
--- NOTE | 2016-08-21 09:51 | PN ---
Progress Note, Physician History of Present Illness: NO NEW COMPLAINTS PLAN D/W PT TODAY PLAN D/W FAMILY YESTERDAY - Current Medication List Current Medications: Active Medications Acetaminophen (Tylenol -) 650 mg PO Q4H PRN PRN Reason: FEVER OR PAIN Acetaminophen (Tylenol -) 650 mg PO Q6H PRN PRN Reason: PAIN LEVEL 6-10 Budesonide/Formoterol Fumarate (Symbicort 160/4.5mcg -) 2 puff IH BID [facility] Last Admin: 08/21/16 09:49 Dose: 2 puff Carvedilol (Coreg -) 12.5 mg PO BID [facility] Last Admin: 08/21/16 09:47 Dose: Not Given Cholecalciferol (Vitamin D3 -) 1,000 unit PO DAILY [facility] Last Admin: 08/21/16 09:28 Dose: 1,000 unit Citalopram Hydrobromide (Celexa -) 40 mg PO DAILY [facility] Last Admin: 08/21/16 09:26 Dose: 40 mg Docusate Sodium (Colace -) 100 mg PO TID [facility] Last Admin: 08/21/16 05:44 Dose: 100 mg Heparin Sodium (Porcine) (Heparin -) 5,000 unit SQ BID [facility] Last Admin: 08/21/16 09:27 Dose: 5,000 unit Meropenem 500 mg/ Dextrose 100 mls @ 200 mls/hr IVPB BID@0500,1700 [facility] Last Admin: 08/21/16 05:44 Dose: 200 mls/hr Sodium Chloride (Normal Saline -) 1,000 mls @ 83 mls/hr IV ASDIR [facility] Last Admin: 08/21/16 01:39 Dose: 83 mls/hr Lactobacillus Acidophilus (Bacid -) 1 tab PO DAILY [facility] Last Admin: 08/21/16 09:22 Dose: 1 tab Levothyroxine Sodium (Synthroid -) 88 mcg PO DAILY@0700 [facility] Last Admin: 08/21/16 06:25 Dose: 88 mcg Oxycodone HCl (Roxicodone -) 10 mg PO Q6H PRN PRN Reason: PAIN LEVEL 6-10 Last Admin: 08/21/16 05:57 Dose: 10 mg Pantoprazole Sodium (Protonix -) 40 mg PO DAILY [facility] Last Admin: 08/21/16 09:27 Dose: 40 mg Prednisone (Deltasone -) 10 mg PO DAILY [facility] Last Admin: 08/21/16 09:26 Dose: 10 mg - Objective Vital Signs: Vital Signs Temperature 97.9 F 08/21/16 06:00 Pulse Rate 87 08/21/16 06:00 Respiratory Rate 18 08/21/16 06:00 Blood Pressure 137/58 08/21/16 06:00 O2 Sat by Pulse Oximetry (%) 98 08/20/16 21:00 Cardiovascular: Yes: S1, S2 Respiratory: Yes: Regular, CTA Bilaterally Gastrointestinal: Yes: Normal Bowel Sounds, Soft Extremities: Yes: Other (GANGRENE OF THUMB SURROUNDING ERYTHEMA) Labs: CBC, BMP 08/21/16 08:00 08/21/16 08:00 Problem List - Problems (1) Gangrene of thumb Assessment/Plan: R/O VASCULAR OCCLUSION R.O EMBOLI S/P ANGIO--NO OCCLUSION--D/W DR SHARPE D/W DR IZABEL SKINNER ABX UNABLE TO AC DUE TO DROPPING HGB PLASTIC SURGERY CONSULT ORTHO CONSULT NOTED--2ND OPINION CALLED Code(s): I96 - GANGRENE, NOT ELSEWHERE CLASSIFIED (2) Acute on chronic renal insufficiency Assessment/Plan: MONITOR RENAL FUNCTION Code(s): N28.9 - DISORDER OF KIDNEY AND URETER, UNSPECIFIED N18.9 - CHRONIC KIDNEY DISEASE, UNSPECIFIED (3) Anemia Assessment/Plan: MONITOR Code(s): D64.9 - ANEMIA, UNSPECIFIED Qualifiers: Anemia type: due to other cause Other causes of anemia: chronic disease , kidney (4) CHF (congestive heart failure) Assessment/Plan: STABLE Code(s): I50.9 - HEART FAILURE, UNSPECIFIED Qualifiers: Congestive heart failure type: diastolic Congestive heart failure chronicity: acute on chronic Qualified Code(s): I50.33 - Acute on chronic diastolic (congestive) heart failure (5) COPD (chronic obstructive pulmonary disease) Assessment/Plan: NEBS STEROIDS Code(s): J44.9 - CHRONIC OBSTRUCTIVE PULMONARY DISEASE, UNSPECIFIED Qualifiers : COPD type: unspecified COPD Qualified Code(s): J44.9 - Chronic obstructive pulmonary disease, unspecified
--- NOTE | 2016-08-21 10:41 | PN ---
Progress Note (short form) - Note Progress Note: Renal Follow up for FRANK on CKD Pt seen and examined at the bedside feels a little better continues to have pain in the thumb no sob, chest pain Vital Signs Temperature 97.9 F 08/21/16 06:00 Pulse Rate 87 08/21/16 06:00 Respiratory Rate 18 08/21/16 06:00 Blood Pressure 137/58 08/21/16 06:00 O2 Sat by Pulse Oximetry (%) 98 08/20/16 21:00 Intake & Output 08/18/16 08/19/16 08/20/16 08/21/16 23:59 23:59 23:59 23:59 Intake Total 520 2650 2220 813 Output Total 30 Balance 520 2620 2220 813 Weight 100 lb 86 lb 9.6 oz 87 lb 1.6 oz Gen: NAD, on NC, awake and alert CVS: RRR, no rub Lungs: Dec BS throughout the lung robertson, no rales Abd: soft NT/ND Ext: No edema, clubbing or cyanosis, discoloration of left thumb CBC, BMP 08/21/16 08:00 08/21/16 08:00 Current Medications Acetaminophen (Tylenol -) 650 mg PO Q4H PRN PRN Reason: FEVER OR PAIN Acetaminophen (Tylenol -) 650 mg PO Q6H PRN PRN Reason: PAIN LEVEL 6-10 Budesonide/Formoterol Fumarate (Symbicort 160/4.5mcg -) 2 puff IH BID [facility] Last Admin: 08/21/16 09:49 Dose: 2 puff Carvedilol (Coreg -) 12.5 mg PO BID [facility] Last Admin: 08/21/16 09:47 Dose: Not Given Cholecalciferol (Vitamin D3 -) 1,000 unit PO DAILY [facility] Last Admin: 08/21/16 09:28 Dose: 1,000 unit Citalopram Hydrobromide (Celexa -) 40 mg PO DAILY [facility] Last Admin: 08/21/16 09:26 Dose: 40 mg Docusate Sodium (Colace -) 100 mg PO TID [facility] Last Admin: 08/21/16 05:44 Dose: 100 mg Heparin Sodium (Porcine) (Heparin -) 5,000 unit SQ BID [facility] Last Admin: 08/21/16 09:27 Dose: 5,000 unit Meropenem 500 mg/ Dextrose 100 mls @ 200 mls/hr IVPB BID@0500,1700 [facility] Last Admin: 08/21/16 05:44 Dose: 200 mls/hr Sodium Chloride (Normal Saline -) 1,000 mls @ 83 mls/hr IV ASDIR [facility] Last Admin: 08/21/16 01:39 Dose: 83 mls/hr Lactobacillus Acidophilus (Bacid -) 1 tab PO DAILY [facility] Last Admin: 08/21/16 09:22 Dose: 1 tab Levothyroxine Sodium (Synthroid -) 88 mcg PO DAILY@0700 [facility] Last Admin: 08/21/16 06:25 Dose: 88 mcg Oxycodone HCl (Roxicodone -) 10 mg PO Q6H PRN PRN Reason: PAIN LEVEL 6-10 Last Admin: 08/21/16 05:57 Dose: 10 mg Pantoprazole Sodium (Protonix -) 40 mg PO DAILY [facility] Last Admin: 08/21/16 09:27 Dose: 40 mg Prednisone (Deltasone -) 10 mg PO DAILY [facility] Last Admin: 08/21/16 09:26 Dose: 10 mg A/P 76 year old woman with PMhx of CKD Stage 4 (baseline Cr 1.8), Aortic Stenosis, CAD s/p Stent, Hypertension, Pulmonary Hypertension, COPD, Small Cell Lung Ca, Hypothroidism who presented to the ED with complaints of a discolored thumb. #Acute on Chronic Renal Insufficiency/Contrast Nephropathy risk stratification Renal function improving with IVF continue isotonic fluids for additional 24 hours Trend BUN/Cr avoid nephrotoxins no acute indication for RESIDENCE LIFE COORDINATOR #Discoloration of thumb CO2 angiogram w/o evidence of arterial occlusion or emboli Plastic Sx follow up #Anemia iron staturation less then 25% start Oral iron trend CBC, transfuse as needed Eric Mendoza DO
--- NOTE | 2016-08-21 12:45 | PN ---
Progress Note (short form) - Note Progress Note: afebrile she is complaining of pain in her thumb Vital Signs Period Temp Pulse Resp BP Sys/Kennedy Pulse Ox Last 24 Hr 97.9 F-99.3 F 77-87 18-22 95-140/54-82 98-98 cor-rrr lungs clear ab soft,nt ext +dry gangrene of the thumb with some distal erythema/discoloration unchanged CBC, BMP 08/21/16 08:00 08/21/16 08:00 Laboratory Tests 08/19/16 08/21/16 06:25 08:00 Random Vancomycin 11.227 16.108 Microbiology 08/17/16 13:32 Blood - Peripheral Venous Blood Culture - Preliminary NO GROWTH OBTAINED AFTER 72 HOURS, INCUBATION TO CONTINUE FOR 2 DAYS. 08/17/16 13:32 Blood - Peripheral Venous Blood Culture - Preliminary NO GROWTH OBTAINED AFTER 72 HOURS, INCUBATION TO CONTINUE FOR 2 DAYS. a/p gangrene of the distal tip of the thumb some associated cellulitis/discoloration unchanged vanco/meropenem (recent zosyn on last admission) follow vanco levels d/w Dr Thompson- for plastic surgery evaluation eren/ckd-improved history of lung and breast cancer d/w at bedside
--- NOTE | 2016-08-21 14:46 | CONSULT ---
Consult - text type - Consultation Consultation Note: Dr. Mao consulted for evaluation of thumb. Patient was already seen by orthopedic hand surgeon Dr. Ward. Recommend consultation with plastic surgeon. Spoke with Dr. Thompson on phone
[2016-08-21 15:04] VITALS: BP 113/70; PULSE 78; TEMP 98
--- NOTE | 2016-08-21 19:46 | HOL ---
Hook-up date: 2016-08-19 08:58:00 Duration: 24:00:00 Test Indications: R/O PAF Medications: 955887 QRS complexes 54818 Ventricular ectopics which represent 20 % of total QRS comp. 3483 Supraventricular ectopics which represent 2 % of total QRS comp. * Paced QRS complexs which represent % of total QRS comp. * % of Time Classified as Noise VENTRICULAR ECTOPY 45962 Isolated 1371 Bigeminal Cycles 239 Couplets 19 Runs 57 Beats in Runs 3 Beats LONGEST at 117 BPM at 18:55:28 2016-08-19 3 Beats FASTEST at 157 BPM at 19:55:42 2016-08-19 SUPRAVENTRICULAR ECTOPY 3357 Isolated 44 Couplets 8 Runs 38 Beats in Runs 13 Beats LONGEST at 127 BPM at 23:05:39 2016-08-19 3 Beats FASTEST at 150 BPM at 06:23:56 2016-08-20 HEART RATES 53 MIN at 17:59:00 2016-08-19 86 AVG 110 MAX at 03:16:49 2016-08-20 LONGEST RR 1.640 secs at 17:58:29 2016-08-19 SCANNED BY CHARLIE WALLACE 08/19/2016 1. Baseline rhythm sinus rhythm with ectopy. Average heart rate 86 bpm. (Range 53 bpm - 110 bpm) 2. No significant pauses or bradyarrhythmias detected. 3. High burden of ventricular ectopy. Ventricular beats comprised 20% of qrs complexes. Frequent isolated PVC's, couplets, bigeminy. Occasional ventricular triplets. 4. Frequent PAC's. Occasional atrial couplets and 3-4 beat atrial runs. One 13 beat episode of SVT. 5. No VT, VF, afib or aflutter detected. 6. No symptoms noted. Confirmed by JUSTIN PEREZ MD (2016) on 08/21/2016 7:45:29 PM Referred By: Overread By: JUSTIN PEREZ MD
--- NOTE | 2016-08-21 21:14 | OP ---
DATE OF OPERATION: 08/19/2016 PREOPERATIVE DIAGNOSIS: Left thumb gangrene. POSTOPERATIVE DIAGNOSIS: Left thumb gangrene. PROCEDURE: Left upper extremity angiogram. SURGEON: Orlando Sharpe DO ANESTHESIA: Fractional. BLOOD LOSS: 5 mL. The patient is a 76-year-old female who came in to the hospital with a 2-week history of left thumb gangrene. It was decided that she would need an upper extremity angiogram to rule out any aneurysms, to rule out embolus, to rule out any stenosis in her arteries that could bring more blood down to her hand. Patient was consented for the procedure, understanding all risks, benefits, alternatives. The patient was then brought in to the operating room. Once in the operating room, the left upper extremity was prepped and draped in a sterile surgical manner. Under ultrasound guidance, we were able to visualize the brachial artery at the left antecubital fossa. We then went ahead and used our micropuncture needle and punctured the left brachial artery. Micropuncture wire was inserted and our micropuncture sheath was inserted. We then went ahead and inserted our J wire, and then a short 5-Kyrgyz sheath was inserted. We then injected a total of 20 mL of contrast due to her renal insufficiency, which was diluted half and half, we were able to visualize the brachial artery was patent, the radial artery was patent, and ulnar artery was patent. The ulnar artery was the main artery feeding the patient's hand, going all the way and forming an arch. The radial artery stopped at the wrist and then gave off collaterals. The patient has an incomplete palmar arch, which probably signifies why the patient has gangrene of her thumb after whatever insult she suffered. The patient does have a palpable radial and ulnar pulse, however, just that the main conclusion here is that the patient has an incomplete palmar arch. At this point we took out our sheath, pressure was held over the left antecubital space for 5 minutes. After there was no bleeding, the area was wet and dried and Dermabond was placed. The patient tolerated the procedure, no complications. There were no areas in the radial or ulnar artery that had severe stenosis that needed angioplasty. At this point, patient will need plastic surgery or hand surgery to take care of her gangrene in her thumb. The patient was transferred back in stable condition. ORLANDO SHARPE DO CHIEF WHEELAGE CLERK/[id number]
--- NOTE | 2016-08-23 11:31 | PN ---
Progress Note (short form) - Note Progress Note: patient requires a standard wheelchair in order to complete ADL's within the home Problem List - Problems (1) Acute on chronic renal insufficiency Code(s): N28.9 - DISORDER OF KIDNEY AND URETER, UNSPECIFIED N18.9 - CHRONIC KIDNEY DISEASE, UNSPECIFIED (2) Gangrene of thumb Code(s): I96 - GANGRENE, NOT ELSEWHERE CLASSIFIED (3) Eosinophilia Code(s): D72.1 - EOSINOPHILIA (4) COPD (chronic obstructive pulmonary disease) Code(s): J44.9 - CHRONIC OBSTRUCTIVE PULMONARY DISEASE, UNSPECIFIED Qualifiers : COPD type: unspecified COPD Qualified Code(s): J44.9 - Chronic obstructive pulmonary disease, unspecified (5) Hypothyroid Code(s): E03.9 - HYPOTHYROIDISM, UNSPECIFIED Qualifiers: Hypothyroidism type: unspecified Qualified Code(s): E03.9 - Hypothyroidism, unspecified (6) CAD (coronary artery disease) Code(s): I25.10 - ATHSCL HEART DISEASE OF [place] CORONARY ARTERY W/O ANG PCTRS Qualifiers: Coronary Disease-Associated Artery/Lesion type: [place] artery [place] vs. transplanted heart: [place] heart Associated angina: without angina Qualified Code(s): I25.10 - Atherosclerotic heart disease of [place] coronary artery without angina pectoris
== END 2016-08-21 15:31 | disposition left against medical advice (07) | DRG 299 ==
LOC: JER 12:45 → JERBED 17:35 → J5S 08-18 19:02
PROVIDERS: ADMIT Family Medicine; ATTEND Family Medicine
PROC: B30JZZZ Plain Radiography of Left Upper Extremity Arteries (ICD-10-PCS; principal; 2016-08-19 16:00)
DX: I96 Gangrene, not elsewhere classified (principal); I50.33 Acute on chronic diastolic (congestive) heart failure; C34.90 Malignant neoplasm of unspecified part of unspecified bronchus or lung; N17.9 Acute kidney failure, unspecified; I25.110 Atherosclerotic heart disease of native coronary artery with unstable angina pectoris; I13.0 Hypertensive heart and chronic kidney disease with heart failure and stage 1 through stage 4 chronic kidney disease, or unspecified chronic kidney disease; N18.4 Chronic kidney disease, stage 4 (severe); E78.5 Hyperlipidemia, unspecified; I08.0 Rheumatic disorders of both mitral and aortic valves; J44.9 Chronic obstructive pulmonary disease, unspecified; I27.2 Other secondary pulmonary hypertension; E03.9 Hypothyroidism, unspecified; M54.5 Low back pain; R91.8 Other nonspecific abnormal finding of lung field; R00.0 Tachycardia, unspecified; M85.80 Other specified disorders of bone density and structure, unspecified site; F41.9 Anxiety disorder, unspecified; K57.90 Diverticulosis of intestine, part unspecified, without perforation or abscess without bleeding; M19.90 Unspecified osteoarthritis, unspecified site; I99.8 Other disorder of circulatory system; R26.89 Other abnormalities of gait and mobility; D72.1 Eosinophilia; Z99.81 Dependence on supplemental oxygen; Z95.5 Presence of coronary angioplasty implant and graft; Z85.3 Personal history of malignant neoplasm of breast; Z87.891 Personal history of nicotine dependence
CPT/HCPCS: 36415; 71010-TC; 76000-TC; 76775-TC; 80053; 81003; 82570; 82728; 83540; 83550; 83735; 84100; 84156; 84300; 84540; 85025; 87040; 87205; 93005; 93010; 93225; 93226; 93306-TC; 94760; 99285-25; G0480; J1644

== ENCOUNTER 2016-08-28 18:58 | Inpatient (IN) | payer OTHER, MEDICARE ==
--- NOTE | 2016-08-28 19:39 | PDOC ---
History of Present Illness - General History Source: Patient, Old Records Exam Limitations: No Limitations - History of Present Illness Initial Comments: 08/28/16 20:05 The patient is a 76 year old female with history of hypertension, hyperlipidemia , mitral insufficiency, COPD, lung CA on home O2, R breast CA, renal insufficiency, hypothyroidism, recent admission for left thumb gangrene discharged 08/20/16, brought in by EMS complaining of generalized weakness, fever , and generalized malaise, that began around noon today. Her O2 sat was noted to be 90 on PulseOx at home and she was noted to be tachycardic. No chest pain or shortness of breath. No nausea, vomiting, or diarrhea. PCP: Dr. Isaiah Thompson Vascular Surgeon: Dr. Husain <Ara Easton - Last Filed: 08/28/16 23:54> <Leah Lopez - Last Filed: 08/29/16 05:26> - General Chief Complaint: Weakness Stated Complaint: WEAKNESS Time Seen by Provider: 08/28/16 19:14 Past History <Ara Easton - Last Filed: 08/28/16 23:54> - Past Medical History Anemia: Yes Asthma: No Cancer: Yes (Rt breast CA and lung CA - 2 primaries) Cardiac Disorders: Yes (ASHD S/P STENT) CVA: No COPD: Yes (O2 3L NC PRN.) CHF: No Dementia: No Diabetes: No GI Disorders: No Disorders: Yes (uti,renal insuff.) HTN: Yes Hypercholesterolemia: No Liver Disease: No Suicide Attempt (Hx): No Seizures: No Thyroid Disease: Yes (hypothyroidism, MULTIPLE NODULES) - Surgical History Abdominal Surgery: No Appendectomy: No Cardiac Surgery: Yes (STENT) Cholecystectomy: No Lung Surgery: Yes (LUNG BX, LUNG CA) Neurologic Surgery: No Orthopedic Surgery: Yes (CERVICAL, LUMBAR LAMINECTOMIES) - Immunization History Immunization Up to Date: Yes - Psycho/Social/Smoking Cessation Hx Anxiety: No Suicidal Ideation: No Smoking Status: Yes Smoking History: Smoker current status UNK Have you smoked in the past 12 months: No Number of Cigarettes Smoked Daily: 0 If you are a former smoker, when did you quit?: 2015 Cigars Per Day: 0 Information on smoking cessation initiated: No 'Breaking Loose' booklet given: 08/03/15 Hx Alcohol Use: No Drug/Substance Use Hx: No Substance Use Type: None Hx Substance Use Treatment: No <Leah Lopez - Last Filed: 08/29/16 05:26> - Past Medical History Allergies/Adverse Reactions: Allergies Allergy/AdvReac Type Severity Reaction Status Date / Time No Known Allergies Allergy Verified 08/28/16 19:06 Home Medications: Ambulatory Orders Carvedilol [Coreg -] 12.5 mg PO BID tablet 08/05/16 Citalopram Hydrobromide [Celexa -] 40 mg PO DAILY tablet 08/05/16 Review of Systems - Review of Systems Able to Perform ROS?: Yes Comments:: 08/28/16 20:16 GENERAL/CONSTITUTIONAL: +fever, generalized weakness x 1 day. HEAD, EYES, EARS, NOSE AND THROAT: No change in vision. No ear pain or discharge. No sore throat CARDIOVASCULAR: No chest pain or shortness of breath. RESPIRATORY: No cough, wheezing, or hemoptysis. GASTROINTESTINAL: No nausea, vomiting, diarrhea or constipation. GENITOURINARY: No dysuria, frequency, or change in urination. MUSCULOSKELETAL: No joint or muscle swelling or pain. No neck or back pain. SKIN: No rash NEUROLOGIC: No headache, vertigo, loss of consciousness, or change in strength/ sensation. ENDOCRINE: No increased thirst. No abnormal weight change. HEMATOLOGIC/LYMPHATIC: No anemia, easy bleeding, or history of blood clots. ALLERGIC/IMMUNOLOGIC: No hives or skin allergy. <Ara Easton - Last Filed: 08/28/16 23:54> *Physical Exam - Vital Signs Last Vital Signs Temp Pulse Resp BP Pulse Ox 98.9 F 113 H 22 111/59 92 L 08/28/16 19:06 08/28/16 19:06 08/28/16 19:06 08/28/16 19:06 08/28/16 19:06 - Physical Exam Comments: 08/28/16 20:16 GENERAL: Awake, alert, and fully oriented. Thin. Weak appearing. HEAD: No signs of trauma EYES: PERRLA, EOMI, sclera anicteric, conjunctiva clear ENT: Auricles normal inspection, hearing grossly normal, nares patent, oropharynx clear without exudates. Moist mucosa NECK: Normal ROM, supple, no lymphadenopathy, JVD, or masses LUNGS: Breath sounds equal, clear to auscultation bilaterally. No wheezes, and no crackles HEART: Regular rate and rhythm, normal S1 and S2, no murmurs, rubs or gallops ABDOMEN: Soft, nontender, normoactive bowel sounds. No guarding, no rebound. No masses EXTREMITIES: +Gangrenous left thumb, no malodor. Normal range of motion, no edema. No clubbing or cyanosis. NEUROLOGICAL: Cranial nerves II through XII grossly intact. Normal speech, normal gait. LUE 4/5 motor strength, all other extremities 5/5 motor strength. SKIN: Warm, Dry, normal turgor. +Aging abrasions on lower extremities. <Ara Easton - Last Filed: 08/28/16 23:54> - Vital Signs Last Vital Signs Temp Pulse Resp BP Pulse Ox 98.9 F 113 H 22 111/59 92 L 08/28/16 19:06 08/28/16 19:06 08/28/16 19:06 08/28/16 19:06 08/28/16 19:06 <Leah Lopez - Last Filed: 08/29/16 05:26> ED Treatment Course - LABORATORY CBC & Chemistry Diagram: 08/28/16 20:10 08/28/16 20:10 - Additional Consults Time Called: 22:15 (Second call to Jay for admission) Reason/Comments: Case discussed with Dr. Dasilva who agreed to admission <Ara Easton - Last Filed: 08/28/16 23:54> - LABORATORY CBC & Chemistry Diagram: 08/28/16 20:10 08/28/16 20:10 <Leah Lopez - Last Filed: 08/29/16 05:26> Medical Decision Making - Medical Decision Making 08/28/16 23:09 Patient Name: Eda Jansen THIS IS A PRELIMINARY REPORT FROM [facility] IMAGES: 429 EXAM DATE AND TIME: 2016-08-28 20:32:27.0 EXAM: CT CHEST WITHOUT CONTRAST Nodular/patchy densities right greater than left lower lobes, correlate clinically for right lower lobe pneumonia. Presumed underlying bibasilar partial atelectasis and chronic interstitial changes. Additional right lung nodules up to 5 mm. Advise followup. Left thyroid nodules up to 1.1 cm. Right thyroid lobe not seen. Emphysema. Coronary artery disease. Left chest infusion port, catheter tip in lower SVC. Surgical changes lower cervical spine. Chronic compression fractures T4, T5, T8 and T12. THIS DOCUMENT HAS BEEN ELECTRONICALLY SIGNED 08/29/16 05:24 Pt comes with weakness and fever and cough and SOB. She has a markedly elevated WBC count, and a CT chest consistent with pneumonia. Pt also has a left gangrenous thumb from an misplaced IV vs infiltration of meds into her left arm/hand/thumb. Unclear if the gangrene is contributing to her elevated WBC count. Pt appears very weak and dehydrated. She eats at home, and she seems very depressed as she keeps coming down with illness and infection which keep her in the hospital. Pt will be readmitted to her PMD Dr. Thompson. <Leah Lopez - Last Filed: 08/29/16 05:26> *DC/Admit/Observation/Transfer - Attestations Scribe Attestion: 08/28/16 20:19 Documentation prepared by Ara Easton, acting as medical transport specialist for Leah Lopez MD. <Ara Easton - Last Filed: 08/28/16 23:54> - Discharge Dispostion Admit: Yes <Leah Lopez - Last Filed: 08/29/16 05:26> Diagnosis at time of Disposition: Right lower lobe pneumonia - Referrals
[2016-08-28] MEDS ORDERED: SODIUM CHLORIDE 0.9% 1000 ML INFUS.BAG IV ONE (20:02)
[2016-08-28 20:29] LABS: MCH 29.4 pg (25.7-33.7); MCHC 31.9 g/dl (32.0-36.0); MEAN CELL VOLUME 92.1 fl (80-96); MEAN PLT VOLUME 7.1 fl (7.5-11.1); PLATELET COUNT 294 K/MM3 (134-434); RDW 17.1 % (11.6-15.6)
[2016-08-28 20:42] LABS: INR 1.04 (0.82-1.09); PROTHROMBIN TIME (PATIENT) 11.5 SEC (9.98-11.88)
[2016-08-28 20:51] LABS: ALBUMIN 2.2 g/dl (3.4-5.0); ANION GAP 7 (8-16); BILIRUBIN,TOTAL 0.3 mg/dL (0.2-1.0); CALCIUM 8.6 mg/dL (8.5-10.1); CO2 24 mmol/L (21-32); CREATININE 2.4 mg/dL (0.55-1.02); GLUCOSE,RANDOM 106 mg/dL (74-106); SGPT/ALT 16 U/L (12-78)
[2016-08-28 21:06] LABS: ALK PHOS 100 U/L (45-117); TROPONIN I 0.03 ng/ml (0.00-0.05)
[2016-08-28 21:09] LABS: SGOT/AST 26 U/L (15-37)
[2016-08-28 21:21] LABS: PLATELET ESTIMATE ADEQUATE (NORMAL)
[2016-08-28] MEDS ORDERED: PIPERACILLIN/TAZOB 3.375 GM 3.375 GM in DEXTROSE 5%-WATER - 50 ML IVPB ONE (22:19)
[2016-08-28] MEDS ORDERED: PIPERACILLIN/TAZOB 3.375 GM 50 ML IVPB ONE (22:35)
[2016-08-28] MEDS ORDERED: OXYCODONE/APAP 5/325MG COMBO TABLET PO ONE (23:39)
[2016-08-28] MEDS ORDERED: OXYCODONE/APAP 5/325MG COMBO TABLET ONE (23:44)
[2016-08-29 02:28] VITALS: BMI 15.6
[2016-08-29] MEDS ORDERED: ACETAMINOPHEN 325 MG TABLET (FP) PO PRN (08:09)
[2016-08-29 09:39] LABS: TROPONIN I 0.02 ng/ml (0.00-0.05)
[2016-08-29] MEDS: CARVEDILOL 12.5 MG TABLET (FP) PO SCH ×2 (10:16→21:25)
[2016-08-29] MEDS: PANTOPRAZOLE 40 MG TABLET (FP) PO SCH (10:16)
[2016-08-29] MEDS: CITALOPRAM HYDROBROMIDE 20 MG TABLET (FP) PO SCH (10:16)
[2016-08-29] MEDS: HEPARIN NA (PORCINE) 5,000 UNITS/ML 1ML VIAL SQ SCH ×2 (10:16→21:25)
--- NOTE | 2016-08-29 10:31 | HP ---
Admitting History and Physical - Primary Care Physician PCP: Isaiah Thompson - Admission Chief Complaint: sob History of Present Illness: Ms Jansen, a 76 year old female with history of hypertension, hyperlipidemia, mitral insufficiency, COPD, lung CA on home O2, R breast CA, renal insufficiency , hypothyroidism, recent admission for left thumb gangrene discharged 08/20/16, brought in by EMS complaining of generalized weakness, fever, and generalized malaise, that began around noon today. Her O2 sat was noted to be 90 on Pulse Ox at home and she was noted to have tachycardia. No chest pain or shortness of breath. No nausea, vomiting, or diarrhea. History Source: Patient Limitations to Obtaining History: No Limitations - Past Medical History Cardiovascular: Yes: Aortic Stenosis, CAD (with coronary stenting), HTN, Hyperlipdemia, Mitral Insufficiency, Pulmonary Hypertension Pulmonary: Yes: Cancer (Chemothrerapy for small cell carcinoma- Dr Simpson), COPD Gastrointestinal: Yes: Diverticulosis, Other (Breast lumpectomy) Renal/: Yes: Renal Failure, Renal Inusuff Heme/Onc: Yes: Cancer Psych: Yes: Anxiety Musculoskeletal: Yes: Chronic low back pain, Osteoarthritis Endocrine: Yes: Hypothyroidism, Osteopenia - Past Surgical History Past Surgical History: Yes: Laminectomy (cervical , lumbar '), Stent, Tonsillectomy, Tubal Ligation - Smoking History Smoking history: Smoker current status UNK Have you smoked in the past 12 months: No Aproximately how many cigarettes per day: 0 If you are a former smoker, when did you quit?: 2014 - Alcohol/Substance Use Hx Alcohol Use: No Date of Last Use: 02/27/81 - Social History ADL: Independent 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 History of Recent Travel: No Home Medications - Allergies Allergies/Adverse Reactions: Allergies Allergy/AdvReac Type Severity Reaction Status Date / Time No Known Allergies Allergy Verified 08/28/16 19:06 - Home Medications Home Medications: Ambulatory Orders Carvedilol [Coreg -] 12.5 mg PO BID tablet 08/05/16 Citalopram Hydrobromide [Celexa -] 40 mg PO DAILY tablet 08/05/16 Acetaminophen [Tylenol .Regular Strength -] 650 mg PO Q4H PRN #0 tablet Albuterol 2.5/Ipratropium 0.5 [Duoneb -] 1 amp NEB QIDR amp 08/31/16 Levofloxacin [Levaquin -] 250 mg PO DAILY #4 tablet 08/31/16 Oxycodone HCl [Roxicodone -] 5 mg PO Q6H PRN #0 tablet MDD 4 08/31/16 Family Disease History - Family Disease History Family Disease History: CA: Father (diffuse unknown primary), Sister ( of lung cancer), Other: Mother ( after hip fracture) Review of Systems - Review of Systems Constitutional: reports: Malaise, Weakness Eyes: reports: No Symptoms HENT: reports: No Symptoms Neck: reports: No Symptoms Cardiovascular: reports: Shortness of Breath Respiratory: reports: SOB Gastrointestinal: reports: No Symptoms Genitourinary: reports: No Symptoms Breasts: reports: No Symptoms Reported Musculoskeletal: reports: No Symptoms Integumentary: reports: Change in Color (NECROSIS OF LEFT THUMB) Endocrine: reports: No Symptoms Hematology/Lymphatic: reports: No Symptoms Psychiatric: reports: No Symptoms Physical Examination Vital Signs: Vital Signs Temperature 99.3 F 08/29/16 08:09 Pulse Rate 94 H 08/29/16 08:09 Respiratory Rate 18 08/29/16 08:09 Blood Pressure 162/79 08/29/16 08:09 O2 Sat by Pulse Oximetry (%) 96 08/29/16 01:51 Constitutional: Yes: Well Nourished, No Distress, Calm Cardiovascular: Yes: Regular Rate and Rhythm, Murmur (LSB GRADE III) Respiratory: Yes: Regular Gastrointestinal: Yes: Normal Bowel Sounds Musculoskeletal: Yes: WNL Extremities: Yes: Other (NECROSIS OF LEFT THUMB) Edema: No Peripheral Pulses WNL: Yes Peripheral Pulses: Left Radial: 1+ Wound/Incision: Yes: Open to air, Other (ESCHAR, NECROSIS OF LEFT THUMB) Neurological: Yes: Alert, Oriented Psychiatric: Yes: Alert, Oriented Imaging - Results Cat Scan: Pending Problem List - Problems (1) Weakness Code(s): R53.1 - WEAKNESS (2) COPD (chronic obstructive pulmonary disease) Code(s): J44.9 - CHRONIC OBSTRUCTIVE PULMONARY DISEASE, UNSPECIFIED Qualifiers : COPD type: unspecified COPD Qualified Code(s): J44.9 - Chronic obstructive pulmonary disease, unspecified (3) Pneumonia Assessment/Plan: R>L IV ABX PULMONARY AND ID CONSULT NASAL O2 Code(s): J18.9 - PNEUMONIA, UNSPECIFIED ORGANISM Qualifiers: Pneumonia type: due to unspecified organism Laterality: right Lung location: lower lobe of lung Qualified Code(s): J18.1 - Lobar pneumonia, unspecified organism (4) Acute on chronic renal insufficiency Assessment/Plan: -to renal as outpatient Code(s): N28.9 - DISORDER OF KIDNEY AND URETER, UNSPECIFIED N18.9 - CHRONIC KIDNEY DISEASE, UNSPECIFIED (5) Chronic hypoxemic respiratory failure Assessment/Plan: -on home O2 nasal cannula 2 LPM Code(s): J96.11 - CHRONIC RESPIRATORY FAILURE WITH HYPOXIA (6) Severe malnutrition Assessment/Plan: -to be seen by RD -Ensure -encourage po intake Code(s): E43 - UNSPECIFIED SEVERE PROTEIN-CALORIE MALNUTRITION Assessment/Plan IV ABX, CT CHEST REVIEWED PULMONARY AND ID CONSULT NEB TX NASAL O2 SURGICAL CONSULT FOR NECROSIS OF LEFT THUMB
[2016-08-29] MEDS: ALBUTEROL SO4 2.5/IPRATROPIUM 0.5 INH SOL 3 ML VIAL.NEB. NEB SCH ×3 (10:45→23:11)
--- NOTE | 2016-08-29 11:26 | CONSULT ---
Consult Consult Specialty:: Pulmonary Reason for Consultation:: Suspected pneumonia - History of Present Illness Chief Complaint: Fever, malaise, weakness History of Present Illness: Patient is a 76 year old female with underlying history of small cell carcinoma dx 5 years ago, on home O2, breast CA, COPD, renal insufficiency,and recent admission for left thumb gangrene on 08/17/16, for which she left AMA 3 days later. She presented to ED yesterday with malaise, fever (Tmax 99.4), dry cough and weakness that has been going on for a few weeks. She states her cough has stopped after getting admitted. She denies SOB, chest pain, hemoptysis and chills. Admits to being a heavy smoker but quit years ago. - History Source History Provided By: Patient Limitations to Obtaining History: No Limitations - Past Medical History Cardio/Vascular: Yes: Aortic Stenosis, CAD (with coronary stenting), HTN, Hyperlipdemia, Mitral Insufficiency, Pulmonary Hypertension Pulmonary: Yes: Cancer (Chemothrerapy for small cell carcinoma- Dr Simpson), COPD, Other (Emphysema) Gastrointestinal: Yes: Diverticulosis, Other (Breast lumpectomy) Renal/: Yes: Renal Failure, Renal Inusuff Heme/Onc: Yes: Anemia, Cancer Psych: Yes: Anxiety Musculoskeletal: Yes: Chronic low back pain, Osteoarthritis Endocrine: Yes: Hypothyroidism, Osteopenia - Past Surgical History Past Surgical History: Yes: Laminectomy (cervical '99, lumbar '), Stent, Tonsillectomy, Tubal Ligation Additional Surgical History: Left mediport insertion - Alcohol/Substance Use Hx Alcohol Use: No Date of Last Use: 02/27/81 - Smoking History Smoking history: Former smoker Have you smoked in the past 12 months: No Aproximately how many cigarettes per day: 0 If you are a former smoker, when did you quit?: 2014 - Social History Usual Living Arrangement: With Spouse ADL: Independent 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 History of Recent Travel: No Home Medications - Allergies Allergies/Adverse Reactions: Allergies Allergy/AdvReac Type Severity Reaction Status Date / Time No Known Allergies Allergy Verified 08/28/16 19:06 - Home Medications Home Medications: Ambulatory Orders Carvedilol [Coreg -] 12.5 mg PO BID tablet 08/05/16 Citalopram Hydrobromide [Celexa -] 40 mg PO DAILY tablet 08/05/16 Family Disease History - Family Disease History Family Disease History: CA: Father (diffuse unknown primary), Sister ( of lung cancer), Other: Mother ( after hip fracture) Review of Systems - Review of Systems Constitutional: reports: Malaise, Weakness Cardiovascular: reports: No Symptoms Integumentary: reports: Other (Gangrenous left thumb) Physical Exam Vital Signs: Vital Signs Temperature 99.3 F 08/29/16 08:09 Pulse Rate 94 H 08/29/16 08:09 Respiratory Rate 18 08/29/16 08:09 Blood Pressure 162/79 08/29/16 08:09 O2 Sat by Pulse Oximetry (%) 96 08/29/16 01:51 Assessment/Plan 76 yo female with a history of small cell carcinoma and COPD, admitted to the hospital with a chief complaint of malaise, fever, and weakness. 1) Fever, malaise- r/o pneumonia, questionable source Also rule out infectious source- gangrenous left thumb (recommend surgical eval) -Afebrile, leukocytosis of 21 with a left shift, repeat CBC in the AM. -CT done 08/27: COPD with bibasilar infiltrates, right greater than left. - previous blood cultures pending -would recommend sputum culture -would recommend Rocephin 2) COPD- not in exacerbation -continue -recommend duoneb 1amp NEB QID -recommend albuterol prn 3) FEN- - Not on any fluids - Check on creatinine tomorrow -Sodium controlled diet 4) prophylaxis: DVT- Heparin 5000 BID GI- Pantoprazole 40mg daily Thank you for this consultative opportunity. Visit type - Emergency Visit Emergency Visit: Yes ED Registration Date: 08/28/16 Care time: The patient presented to the Emergency Department on the above date and was hospitalized for further evaluation of their emergent condition. - New Patient This patient is new to me today: Yes Date on this admission: 08/29/16 - Critical Care Critical Care patient: No
--- NOTE | 2016-08-29 11:59 | CON.PULM ---
Consult Consult Specialty:: PULMONARY Referred by:: NELSON Reason for Consultation:: COPD - History of Present Illness Chief Complaint: LEFT THUMB PAINFUL/GANGRENOUS History of Present Illness: The patient is a 76 year old female with history of hypertension, hyperlipidemia , mitral insufficiency, COPD, small cell lung CA s/p resection/chemotx, on home O2, R breast CA, renal insufficiency, hypothyroidism, recent admission for left thumb gangrene discharged 08/20/16, brought in by EMS complaining of generalized weakness, fever, and generalized malaise, that began around noon today. Her O2 sat was noted to be 90 on PulseOx at home and she was noted to be tachycardic. No chest pain or shortness of breath. No nausea, vomiting, or diarrhea. Patient states her breathing is the same. - History Source History Provided By: Patient, Medical Record Limitations to Obtaining History: No Limitations - Past Medical History [employer]: No: Alzheimer's Cardio/Vascular: Yes: Aortic Stenosis, CAD (with coronary stenting), HTN, Hyperlipdemia, Mitral Insufficiency, Pulmonary Hypertension. No: AFIB Pulmonary: Yes: Cancer (Chemothrerapy for small cell carcinoma- Dr Simpson), COPD, Other (Emphysema) Gastrointestinal: Yes: Diverticulosis, Other (Breast lumpectomy) Renal/: Yes: Renal Failure, Renal Inusuff Psych: Yes: Anxiety Musculoskeletal: Yes: Chronic low back pain, Osteoarthritis Endocrine: Yes: Hypothyroidism, Osteopenia - Past Surgical History Past Surgical History: Yes: Laminectomy (cervical '99, lumbar '97), Stent, Tonsillectomy, Tubal Ligation - Alcohol/Substance Use Hx Alcohol Use: No Date of Last Use: 02/27/81 - Smoking History Smoking history: Former smoker Have you smoked in the past 12 months: No Aproximately how many cigarettes per day: 0 If you are a former smoker, when did you quit?: 2014 - Social History Usual Living Arrangement: With Spouse ADL: Independent 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 Place of : [facility] History of Recent Travel: No Home Medications - Allergies Allergies/Adverse Reactions: Allergies Allergy/AdvReac Type Severity Reaction Status Date / Time No Known Allergies Allergy Verified 08/28/16 19:06 - Home Medications Home Medications: Ambulatory Orders Carvedilol [Coreg -] 12.5 mg PO BID tablet 08/05/16 Citalopram Hydrobromide [Celexa -] 40 mg PO DAILY tablet 08/05/16 Family Disease History - Family Disease History Family Disease History: CA: Father (diffuse unknown primary), Sister ( of lung cancer), Other: Mother ( after hip fracture) Review of Systems - Review of Systems Constitutional: reports: Lethargy, Loss of Appetite Cardiovascular: denies: Chest Pain Respiratory: reports: SOB on Exertion (chronic) Integumentary: reports: Other (left thumb with dry gangrene) Physical Exam Vital Sings: Vital Signs Temperature 99.3 F 08/29/16 08:09 Pulse Rate 94 H 08/29/16 08:09 Respiratory Rate 18 08/29/16 08:09 Blood Pressure 162/79 08/29/16 08:09 O2 Sat by Pulse Oximetry (%) 96 08/29/16 01:51 Constitutional: Yes: Anxious Eyes: Yes: EOM Intact HENT: Yes: Normocephalic Neck: Yes: Trachea Midline Cardiovascular: Yes: Regular Rate and Rhythm, S1, S2 Respiratory: Yes: Diminished (diffuse bilateral) Gastrointestinal: Yes: Soft Edema: No Labs: reviewed Imaging - Results X-ray: Image Reviewed Cat Scan: Image Reviewed Assessment/Plan gangrenous left thumb requires likely partial amputation copd/chronic hypoxemic resp failure appears stable low index of suspicion for concomitant pneumonia h/o small cell lung ca h/o breast ca o2 supplementation bronchodilators no need for steroids at this point panculture antibiotics to cover soft tissue infection surg consult for evaluation of left thumb Francois ROBERTS MD
[2016-08-29] MEDS ORDERED: ALBUTEROL SO4 0.083% IH SOL 2.5 MG/3 ML VIAL.NEB. NEB SCH (12:00)
[2016-08-29] MEDS ORDERED: IPRATROPIUM BR 0.02% 0.5 MG/2.5 ML VIAL.NEB. NEB SCH (12:00)
--- NOTE | 2016-08-29 12:08 | PN ---
Progress Note (short form) - Note Progress Note: ID consult dictated imp/reccd 76 year old admitted with increased cough and SOB, generalized weakness no fevers at home, no prednisone eating well no diarrhea got anxious at home and came to ED Leukocytosis-?source possible pneumonia gangrene of left thumb FRANK/CKD vancomycin one dose zosyn f/u cultures hand surgery evaluation Problem List - Problems (1) Leukocytosis Code(s): D72.829 - ELEVATED WHITE BLOOD CELL COUNT, UNSPECIFIED Qualifiers: Leukocytosis type: other Qualified Code(s): D72.828 - Other elevated white blood cell count (2) Pneumonia Code(s): J18.9 - PNEUMONIA, UNSPECIFIED ORGANISM Qualifiers: Pneumonia type: due to unspecified organism Laterality: right Lung location: lower lobe of lung Qualified Code(s): J18.1 - Lobar pneumonia, unspecified organism (3) Gangrene of thumb Code(s): I96 - GANGRENE, NOT ELSEWHERE CLASSIFIED
[2016-08-29] MEDS ORDERED: VANCOMYCIN 750 MG in DEXTROSE 5%-WATER - 250 ML IVPB ONE ×2 (13:15→13:30)
[2016-08-29] MEDS: PIPERACILLIN/TAZOB 2.25 GM 50 ML IVPB SCH ×2 (13:35→18:24)
[2016-08-29] MEDS: oxyCODONE HCL 5 MG TABLET PO PRN (21:26)
--- NOTE | 2016-08-30 00:49 | CONS ---
DATE OF CONSULTATION: DATE OF DICTATION: 08/29/2016 INFECTIOUS DISEASE CONSULTATION REQUESTING PHYSICIAN: Isaiah Thompson M.D. CONSULTING PHYSICIAN: Faith Mederos M.D. HISTORY OF PRESENT ILLNESS: The patient is a 76-year-old woman with a history of COPD, breast and lung cancer, pneumonia in the past, who was recently hospitalized last week at [facility]. She presented with left thumb pain and a gangrenous left thumb. She was undergoing an evaluation of her thumb which included arteriogram which was negative for any large-vessel vascular disease as well as she was getting IV antibiotics, and she left AMA. She left on the . She apparently went the next day to see a plastic surgeon at [facility] who looked at her thumb, told her that it would demarcate and to come back weekly for followup and to give him a call if she developed any fever, or redness, or drainage from the thumb. She has been in a home since that time. She developed she reports some cough, shortness of breath, and generalized weakness at home. No fevers, and she felt very anxious and came to the emergency room. She was noted to have a leukocytosis in the emergency room, and she was admitted for further evaluation. She had a CAT scan of her chest done that reveals bibasilar infiltrates, and that was essentially unchanged from June. She has severe COPD as well. She received a dose of piperacillin/tazobactam. I am asked to see her for further recommendations. She is resting comfortably. She is not taking any prednisone at home. PAST MEDICAL HISTORY: Notable for aortic stenosis, coronary artery disease with stenting, hypertension, hyperlipidemia, pulmonary hypertension. She has a history of small cell carcinoma. She is oxygen dependent at home. She has a history of diverticulosis, chronic kidney disease, anxiety, chronic low back pain, hypothyroidism, osteopenia. She has had a cervical and lumbar laminectomy in the past, tonsillectomy and tubal ligation. As well she has had a recent GI bleed as well as a recent pneumonia. She has a history of prior breast cancer as well. MEDICATIONS AT HOME: She is not taking any prednisone. She is not on any antibiotics. Medications at home included Celexa and Coreg. FAMILY HISTORY: Noncontributory. SOCIAL HISTORY: She is . She lives with her . PHYSICAL EXAMINATION: General: She is a thin woman in no acute distress. Vital signs: Temperature 98.5, pulse is 93, blood pressure 108/46, respiratory rate 18. HEENT: Normocephalic. Eyes are anicteric. Neck: Supple. She has no thrush. Lungs: Crackles at the bases. Heart: Regular rate and rhythm. Abdomen: Soft, nontender. Extremities: Notable for a right thumb that the tip has dry gangrene. There is no streaking, erythema. She has some soft tissue changes in the area adjacent to the gangrene, but there is no streaking erythema. It is nontender. There is no foul odor. LABORATORY: Notable for a white count of 21,000, hemoglobin 8.9, platelets of 294. INR is 1. BUN and creatinine are 43 and 2.4. Blood cultures are pending. CT as stated before is unchanged from prior. IMPRESSION: In summary, this is a 76-year-old woman admitted with increased cough and shortness of breath, generalized weakness, no fevers at home, no prednisone, eating well, no diarrhea. She has a leukocytosis of unclear etiology. COPD exacerbation. Possible pneumonia. Gangrene of the left thumb as well may be contributing to her leukocytosis. Acute kidney insufficiency in the setting of chronic kidney disease. Would treat her with vancomycin 1 dose, continue Zosyn adjusted for her chronic kidney disease, follow up blood cultures with hand surgery evaluation. Further recommendations to follow. FAITH MEDEROS M.D. [id number]
[2016-08-30] MEDS: PIPERACILLIN/TAZOB 2.25 GM 50 ML IVPB SCH ×3 (00:59→17:27)
[2016-08-30] MEDS: ALBUTEROL SO4 2.5/IPRATROPIUM 0.5 INH SOL 3 ML VIAL.NEB. NEB SCH ×2 (06:28→18:00)
[2016-08-30 07:30] LABS: BASOPHIL 0.2 % (0-2.0); EOSINOPHIL 1.4 % (0-4.5); MCH 30.2 pg (25.7-33.7); MCHC 33.1 g/dl (32.0-36.0); MEAN CELL VOLUME 91.4 fl (80-96); MEAN PLT VOLUME 7.1 fl (7.5-11.1); NEUTROPHILS 81.7 % (42.8-82.8); PLATELET COUNT 261 K/MM3 (134-434); RDW 17.2 % (11.6-15.6); WHITE BLOOD COUNT 14.8 K/mm3 (4.0-10.0)
[2016-08-30 08:08] LABS: ALBUMIN 1.7 g/dl (3.4-5.0); ALK PHOS 75 U/L (45-117); ANION GAP 7 (8-16); BILIRUBIN,TOTAL 0.5 mg/dL (0.2-1.0); CALCIUM 7.7 mg/dL (8.5-10.1); CO2 25 mmol/L (21-32); CREATININE 2.3 mg/dL (0.55-1.02); GLUCOSE,RANDOM 84 mg/dL (74-106); SGOT/AST 11 U/L (15-37); SGPT/ALT 12 U/L (12-78)
--- NOTE | 2016-08-30 09:29 | PN ---
Progress Note, Physician History of Present Illness: FEELS BETTER STILL WITH SOB NO CP - Current Medication List Current Medications: Active Medications Acetaminophen (Tylenol -) 650 mg PO Q4H PRN PRN Reason: FEVER OR PAIN Albuterol/Ipratropium (Duoneb -) 1 amp NEB QIDR [facility] Last Admin: 08/30/16 06:28 Dose: 1 amp Carvedilol (Coreg -) 12.5 mg PO BID [facility] Last Admin: 08/29/16 21:25 Dose: 12.5 mg Citalopram Hydrobromide (Celexa -) 40 mg PO DAILY [facility] Last Admin: 08/29/16 10:16 Dose: 40 mg Heparin Sodium (Porcine) (Heparin -) 5,000 unit SQ BID [facility] Last Admin: 08/29/16 21:25 Dose: 5,000 unit Piperacillin Sod/Tazobactam Sod (Zosyn 2.25gm Ivpb (Pre-Docked)) 50 mls @ 100 mls/hr IVPB Q8H-IV [facility] PRN Reason: Protocol Last Admin: 08/30/16 00:59 Dose: 100 mls/hr Oxycodone HCl (Roxicodone -) 5 mg PO Q6H PRN PRN Reason: PAIN Last Admin: 08/29/16 21:26 Dose: 5 mg Pantoprazole Sodium (Protonix -) 40 mg PO DAILY [facility] Last Admin: 08/29/16 10:16 Dose: 40 mg - Objective Vital Signs: Vital Signs Temperature 97.8 F 08/30/16 06:00 Pulse Rate 90 08/30/16 06:00 Respiratory Rate 20 08/30/16 06:00 Blood Pressure 124/76 08/30/16 06:00 O2 Sat by Pulse Oximetry (%) 95 08/29/16 21:00 Respiratory: Yes: Diminished, On Nasal O2, Rales (AT THE BASES) Gastrointestinal: Yes: Normal Bowel Sounds, Soft. No: Tenderness Extremities: Yes: Other (GANGRENE OF THUMB) Labs: CBC, BMP 08/30/16 06:00 08/30/16 06:00 INR, PTT INR 1.04 (0.82-1.09) 08/28/16 20:10 Assessment/Plan - Problems (1) Weakness PT Code(s): R53.1 - WEAKNESS (2) COPD (chronic obstructive pulmonary disease) Code(s): J44.9 - CHRONIC OBSTRUCTIVE PULMONARY DISEASE, UNSPECIFIED Qualifiers : Qualified Code(s): J44.9 - Chronic obstructive pulmonary disease, unspecified (3) Pneumonia Assessment/Plan: R>L IV ABX PULMONARY AND ID CONSULT NASAL O2 Code(s): J18.9 - PNEUMONIA, UNSPECIFIED ORGANISM Qualifiers: Qualified Code(s): J18.1 - Lobar pneumonia, unspecified organism (4) Gangerene of Thumb Assessment/Plan: SURGICAL F/U AT [facility]
--- NOTE | 2016-08-30 09:29 | PN ---
Progress Note (short form) - Note Progress Note: feels better today, less SOB good appetite, no diarrhea Vital Signs Period Temp Pulse Resp BP Sys/Kennedy Pulse Ox Last 24 Hr 97.8 F-99.6 F 88-93 18-20 108-124/46-76 95-97 cor-rrr lungs decreased bs at bases abd soft,nt ext thumb unchanged, dry gangrene CBC, BMP 08/30/16 06:00 08/30/16 06:00 Microbiology 08/28/16 20:21 Blood - Peripheral Venous Blood Culture - Preliminary NO GROWTH OBTAINED AFTER 24 HOURS, INCUBATION TO CONTINUE FOR 4 DAYS. 08/28/16 20:21 Blood - Peripheral Venous Blood Culture - Preliminary NO GROWTH OBTAINED AFTER 24 HOURS, INCUBATION TO CONTINUE FOR 4 DAYS. imp/reccd Leukocytosis-?source copd exacerbation possible pneumonia gangrene of left thumb unchanged FRANK/CKD vancomycin one dose zosyn f/u cultures wbc improving suspect switch to po antibiotics in am d/w Dr Thompson
--- NOTE | 2016-08-30 10:04 | PN ---
Progress Note (short form) - Note Progress Note: PULMONARY VSS/AFEBRILE OOB TO CHAIR NO IMPROVEMENT IN SYMPTOMS ANICTERIC DISTANT BREATH SOUNDS S1S2 BS+ LEFT THUMB DISTAL GANGRENOUS CHANGES NOTED LABS/MEDS/NOTES/CT CHEST REVIEWED Assessment/Plan gangrenous left thumb requires likely partial amputation copd/chronic hypoxemic resp failure appears stable low index of suspicion for concomitant pneumonia h/o small cell lung ca h/o breast ca o2 supplementation bronchodilators no need for steroids at this point panculture antibiotics to cover soft tissue infection surg consult for evaluation of left thumb Francois ROBERTS MD
[2016-08-30] MEDS: PANTOPRAZOLE 40 MG TABLET (FP) PO SCH (10:24)
[2016-08-30] MEDS: CITALOPRAM HYDROBROMIDE 20 MG TABLET (FP) PO SCH (10:24)
[2016-08-30] MEDS: HEPARIN NA (PORCINE) 5,000 UNITS/ML 1ML VIAL SQ SCH ×2 (10:24→21:59)
[2016-08-30] MEDS: CARVEDILOL 12.5 MG TABLET (FP) PO SCH ×2 (10:24→21:59)
[2016-08-30] MEDS: oxyCODONE HCL 5 MG TABLET PO PRN ×2 (10:36→21:59)
[2016-08-31] MEDS: PIPERACILLIN/TAZOB 2.25 GM 50 ML IVPB SCH ×2 (01:45→09:22)
[2016-08-31] MEDS: ALBUTEROL SO4 2.5/IPRATROPIUM 0.5 INH SOL 3 ML VIAL.NEB. NEB SCH ×3 (06:50→11:05)
[2016-08-31] MEDS: CARVEDILOL 12.5 MG TABLET (FP) PO SCH (09:22)
[2016-08-31] MEDS: CITALOPRAM HYDROBROMIDE 20 MG TABLET (FP) PO SCH (09:22)
[2016-08-31] MEDS: HEPARIN NA (PORCINE) 5,000 UNITS/ML 1ML VIAL SQ SCH (09:24)
[2016-08-31] MEDS: oxyCODONE HCL 5 MG TABLET PO PRN (09:26)
--- NOTE | 2016-08-31 11:40 | PN ---
Progress Note (short form) - Note Progress Note: PULMONARY VSS/AFEBRILE APPEARS STABLE ANICTERIC DISTANT BREATH SOUNDS S1S2 BS+ LEFT THUMB DISTAL GANGRENOUS CHANGES NOTED LABS/MEDS/NOTES/CT CHEST REVIEWED Assessment/Plan gangrenous left thumb requires likely partial amputation copd/chronic hypoxemic resp failure appears stable low index of suspicion for concomitant pneumonia h/o small cell lung ca h/o breast ca o2 supplementation bronchodilators no need for steroids at this point panculture antibiotics to cover soft tissue infection surg consult for evaluation of left thumb R ARMANDO LOPES
--- NOTE | 2016-08-31 12:31 | PN ---
Progress Note (short form) - Note Progress Note: Pt seen and examined. In summary, she is a 76 year old female pt with a right thumb with dry gangrene. I spoke with Dr Husain, vascular analytics consultant, who agrees that it has a vascular etiology. Today, her PE is unchanged, according to the pt hasn't changed over the past 48 hours. Area of dry gangrene circumferentially over the distal phalanx. + hard tissue, complete NV compromise. She has intact FPL and EPL function, although compromised. Therefore the level of gangrene has declared itself, and the patient is now a candidate for a right thumb partial amputation. She already has an appointment with a surgeon at [facility] tomorrow, so I recommended keeping that appointment.
--- NOTE | 2016-08-31 13:47 | PN ---
Progress Note (short form) - Note Progress Note: feels better today, less SOB less cough Vital Signs Period Temp Pulse Resp BP Sys/Kennedy Pulse Ox Last 24 Hr 98.0 F-99.4 F 72-86 18-20 131-153/60-86 92-98 cor-rrr lungs decreased bs at bases abd soft,nt ext dry gangrene of the thumb no new labs imp/reccd Leukocytosis-?source copd exacerbation possible pneumonia gangrene of left thumb unchanged-has f/u at [facility] FRANK/CKD repeat cbc now day #3 zosyn if improved can switch to po levaquin 250 daily for 4 days Problem List - Problems (1) Leukocytosis Code(s): D72.829 - ELEVATED WHITE BLOOD CELL COUNT, UNSPECIFIED Qualifiers: Leukocytosis type: other Qualified Code(s): D72.828 - Other elevated white blood cell count (2) Pneumonia Code(s): J18.9 - PNEUMONIA, UNSPECIFIED ORGANISM Qualifiers: Pneumonia type: due to unspecified organism Laterality: right Lung location: lower lobe of lung Qualified Code(s): J18.1 - Lobar pneumonia, unspecified organism (3) Gangrene of thumb Code(s): I96 - GANGRENE, NOT ELSEWHERE CLASSIFIED
[2016-08-31 14:26] LABS: MCHC 32.5 g/dl (32.0-36.0); MEAN CELL VOLUME 92.4 fl (80-96); MEAN PLT VOLUME 6.9 fl (7.5-11.1); PLATELET COUNT 353 K/MM3 (134-434); RDW 16.7 % (11.6-15.6); WHITE BLOOD COUNT 8.9 K/mm3 (4.0-10.0)
[2016-08-31] MEDS: PANTOPRAZOLE 40 MG TABLET (FP) PO SCH (14:26)
[2016-08-31 14:34] VITALS: BP 112/70; PULSE 85; TEMP 98.2
--- NOTE | 2016-08-31 15:23 | PN ---
Progress Note, Physician Chief Complaint: SOB PNEUMONIA LEUKOCYTOSIS History of Present Illness: COMFORTABLE IN BED,NAD, WBC IMPROVED, SEEN BY ID,HAND SURGERY AND PULMONARY - Current Medication List Current Medications: Active Medications Acetaminophen (Tylenol -) 650 mg PO Q4H PRN PRN Reason: FEVER OR PAIN Albuterol/Ipratropium (Duoneb -) 1 amp NEB QIDR [facility] Last Admin: 08/31/16 11:05 Dose: 1 amp Carvedilol (Coreg -) 12.5 mg PO BID [facility] Last Admin: 08/31/16 09:22 Dose: 12.5 mg Citalopram Hydrobromide (Celexa -) 40 mg PO DAILY [facility] Last Admin: 08/31/16 09:22 Dose: 40 mg Heparin Sodium (Porcine) (Heparin -) 5,000 unit SQ BID [facility] Last Admin: 08/31/16 09:24 Dose: 5,000 unit Piperacillin Sod/Tazobactam Sod (Zosyn 2.25gm Ivpb (Pre-Docked)) 50 mls @ 100 mls/hr IVPB Q8H-IV [facility] PRN Reason: Protocol Last Admin: 08/31/16 09:22 Dose: 100 mls/hr Oxycodone HCl (Roxicodone -) 5 mg PO Q6H PRN PRN Reason: PAIN Last Admin: 08/31/16 09:26 Dose: 5 mg Pantoprazole Sodium (Protonix -) 40 mg PO DAILY [facility] Last Admin: 08/31/16 14:26 Dose: 40 mg - Objective Vital Signs: Vital Signs Temperature 98.2 F 08/31/16 14:32 Pulse Rate 85 08/31/16 14:32 Respiratory Rate 16 08/31/16 14:32 Blood Pressure 112/70 08/31/16 14:32 O2 Sat by Pulse Oximetry (%) 92 L 08/31/16 10:50 Constitutional: Yes: Well Nourished, No Distress, Calm Cardiovascular: Yes: Regular Rate and Rhythm Respiratory: Yes: Regular Gastrointestinal: Yes: Normal Bowel Sounds Musculoskeletal: Yes: WNL Extremities: Yes: WNL Edema: No Peripheral Pulses WNL: Yes Integumentary: Yes: Other (NECROSIS OF LEFT THUMB) Neurological: Yes: Alert, Oriented Psychiatric: Yes: Alert, Oriented Labs: CBC, BMP 08/31/16 14:15 08/30/16 06:00 INR, PTT INR 1.04 (0.82-1.09) 08/28/16 20:10 Problem List - Problems (1) Weakness Code(s): R53.1 - WEAKNESS (2) COPD (chronic obstructive pulmonary disease) Code(s): J44.9 - CHRONIC OBSTRUCTIVE PULMONARY DISEASE, UNSPECIFIED Qualifiers : COPD type: unspecified COPD Qualified Code(s): J44.9 - Chronic obstructive pulmonary disease, unspecified (3) Pneumonia Assessment/Plan: R>L-QUESTIONABLE HAD SOB, LEUKOCYTOSIS IV ABX PULMONARY AND ID CONSULT NASAL O2 Code(s): J18.9 - PNEUMONIA, UNSPECIFIED ORGANISM Qualifiers: Pneumonia type: due to unspecified organism Laterality: right Lung location: lower lobe of lung Qualified Code(s): J18.1 - Lobar pneumonia, unspecified organism (4) Gangrene of thumb Assessment/Plan: SEEN BY HAND SURGERY TO BE FOLLOWED UP AT [facility]. Code(s): I96 - GANGRENE, NOT ELSEWHERE CLASSIFIED (5) Leukocytosis Assessment/Plan: IMPROVED TODAY Code(s): D72.829 - ELEVATED WHITE BLOOD CELL COUNT, UNSPECIFIED Qualifiers: Leukocytosis type: other Qualified Code(s): D72.828 - Other elevated white blood cell count Assessment/Plan DISCHARGE HOME ON LEVAQUIN 250 MG FOR 4 DAYS FOLLOW UP OUTPATIENT WITH PLASTIC SURGERY AT [facility]
--- NOTE | 2016-09-01 12:32 | DS ---
Physical Examination Vital Signs: Vital Signs Temperature 98.2 F 08/31/16 14:32 Pulse Rate 85 08/31/16 14:32 Respiratory Rate 16 08/31/16 14:32 Blood Pressure 112/70 08/31/16 14:32 O2 Sat by Pulse Oximetry (%) 92 L 08/31/16 10:50 Constitutional: Yes: Well Nourished, No Distress, Calm Cardiovascular: Yes: Regular Rate and Rhythm Respiratory: Yes: Regular Gastrointestinal: Yes: Normal Bowel Sounds Extremities: Yes: Other (left thumb necrosis) Peripheral Pulses WNL: Yes Wound/Incision: Yes: Clean/Dry Neurological: Yes: Alert, Oriented Labs: CBC, BMP 08/31/16 14:15 08/30/16 06:00 Discharge Summary Reason For Visit: RIGHT LOWER LOBE PNEUMONIA COPD Exacerbation SOB Right lower lobe Pneumonia Left thumb necrosis Malnutrition secondary to chronic illness Hospital Course: Ms Jansen, a 76 year old female with history of hypertension, hyperlipidemia, mitral insufficiency, COPD, lung CA on home O2, R breast CA, renal insufficiency , hypothyroidism, recent admission for left thumb gangrene discharged 08/20/16, brought in by EMS complaining of sob,generalized weakness, fever, and generalized malaise, that began around noon today. Her O2 sat was noted to be 90 on Pulse Ox at home and she was noted to have tachycardia. No other symptoms reported During the course of her stay she was seen by Pulmonary and ID and was treated with IV abx. She was also seen by Hand Surgery for the necrosis of her left thumb, which was stable forming a defined border. She will follow up with nephrology, plastic surgery and PCP as out patient. She will be going home on PO antibiotics for another 4 days. Condition: Stable - Instructions Diet, Activity, Other Instructions: -Levaquin 250 mg 1 tab daily for next 4 days. -Follow up with Plastic Surgery at [place]. -Follow up outpatient with PCP-Dr Thompson within next 2 weeks -Follow Low Sodium diet Referrals: Isaiah Thompson MD [Primary Care Provider] - Disposition: HOME - Home Medications Comprehensive Discharge Medication List: Ambulatory Orders Carvedilol [Coreg -] 12.5 mg PO BID tablet 08/05/16 Citalopram Hydrobromide [Celexa -] 40 mg PO DAILY tablet 08/05/16 Acetaminophen [Tylenol .Regular Strength -] 650 mg PO Q4H PRN #0 tablet Albuterol 2.5/Ipratropium 0.5 [Duoneb -] 1 amp NEB QIDR amp 08/31/16 Levofloxacin [Levaquin -] 250 mg PO DAILY #4 tablet 08/31/16 Oxycodone HCl [Roxicodone -] 5 mg PO Q6H PRN #0 tablet MDD 4 08/31/16
== END 2016-08-31 17:17 | disposition home or self-care (01) | DRG 190 ==
LOC: JER 18:58 → JERBED 23:10 → J7W 08-29 01:17
PROVIDERS: ADMIT Family Medicine; ATTEND Family Medicine
DX: J44.0 Chronic obstructive pulmonary disease with (acute) lower respiratory infection (principal); J18.9 Pneumonia, unspecified organism; E43 Unspecified severe protein-calorie malnutrition; Z68.1 Body mass index [BMI] 19.9 or less, adult; N17.9 Acute kidney failure, unspecified; J96.11 Chronic respiratory failure with hypoxia; J44.1 Chronic obstructive pulmonary disease with (acute) exacerbation; E78.5 Hyperlipidemia, unspecified; Z85.3 Personal history of malignant neoplasm of breast; D72.829 Elevated white blood cell count, unspecified; I12.9 Hypertensive chronic kidney disease with stage 1 through stage 4 chronic kidney disease, or unspecified chronic kidney disease; N18.9 Chronic kidney disease, unspecified; Z85.118 Personal history of other malignant neoplasm of bronchus and lung; R53.1 Weakness; Z87.891 Personal history of nicotine dependence; E03.9 Hypothyroidism, unspecified
CPT/HCPCS: 36415; 71250-TC; 80053; 82550; 83605; 83880; 84484; 85025; 85027; 85610; 87040; 87086; 94640; 97116-GP; 97162-GP; 99284-25; G0480; J1644

== ENCOUNTER 2016-12-18 18:21 | Inpatient (IN) | payer OTHER, MEDICARE ==
[2016-12-18] MEDS ORDERED: SODIUM CHLORIDE 0.9% 1000 ML INFUS.BAG IV STA (18:36)
[2016-12-18 18:48] LABS: URINE APPEARANCE CLOUDY; URINE BILIRUBIN NEGATIVE (NEGATIVE); URINE BLOOD 1+ (NEGATIVE); URINE COLOR YELLOW; URINE GLUCOSE (UA) NEGATIVE (NEGATIVE); URINE KETONE NEGATIVE (NEGATIVE); URINE NITRITE NEGATIVE (NEGATIVE); URINE UROBILINOGEN NEGATIVE mg/dL (0.2-1.0)
[2016-12-18 18:59] LABS: BASOPHIL 0.1 % (0-2.0); MCH 28.7 pg (25.7-33.7); MCHC 33.5 g/dl (32.0-36.0); MEAN CELL VOLUME 85.7 fl (80-96); MEAN PLT VOLUME 6.8 fl (7.5-11.1); NEUTROPHILS 87.1 % (42.8-82.8); PLATELET COUNT 361 K/MM3 (134-434); RDW 14.8 % (11.6-15.6)
[2016-12-18 19:02] LABS: URINE PROTEIN 1+ (NEGATIVE)
[2016-12-18 19:03] LABS: URINE BACTERIA RARE /hpf (NONE SEEN); URINE RBC 2 /hpf (0-3); URINE WBC 231 /hpf (3-5); YEAST FEW
[2016-12-18 19:06] LABS: VENOUS PH 7.35 (7.32-7.42)
[2016-12-18 19:07] LABS: INR 1.04 (0.82-1.09); PROTHROMBIN TIME (PATIENT) 11.8 SEC (9.98-11.88)
[2016-12-18 19:07] LABS: VENOUS BLOOD GAS HCO3 21.1 meq/L (19-25)
[2016-12-18 19:10] LABS: ACTIVATED PTT 25.2 SECONDS (26.9-34.4)
[2016-12-18] MEDS ORDERED: ACETAMINOPHEN 1000 MG/100 ML VIAL (NON FORMULARY) IVPB ONE (19:13)
[2016-12-18] MEDS ORDERED: ACETAMINOPHEN INJECTION 100 ML IVPB ONE (19:21)
[2016-12-18 19:32] LABS: ALBUMIN 2.1 g/dl (3.4-5.0); ANION GAP 6 (8-16); CO2 21 mmol/L (21-32); GLUCOSE,RANDOM 102 mg/dL (74-106); SGOT/AST 26 U/L (15-37); SGPT/ALT 24 U/L (12-78)
[2016-12-18 19:35] LABS: ALK PHOS 80 U/L (45-117); BILIRUBIN,TOTAL 0.4 mg/dL (0.2-1.0); CPK 51 IU/L (26-192); TOT PROT 6.8 g/dl (6.4-8.2); TROPONIN I < 0.02 ng/ml (0.00-0.05)
[2016-12-18] MEDS ORDERED: ALBUTEROL SO4 2.5/IPRATROPIUM 0.5 INH SOL 3 ML VIAL.NEB. NEB ONE ×3 (19:42→21:00)
--- NOTE | 2016-12-18 19:42 | PDOC ---
History of Present Illness <Ailyn Vincent - Last Filed: 12/18/16 21:08> - General History Source: Patient, EMS, Spouse () Exam Limitations: No Limitations - History of Present Illness Initial Comments: 12/18/16 20:01 The patient is a 76 year old female with a significant past medical history of HTN, HLD, mitral insufficiency, COPD, lung CA (on home O2), R breast CA, renal insufficiency, hypothyroidism who presents to the ED, via EMS, for 4 days of generalized weakness and cough. As per EMS, the patient reports 4 days of progressively worsening generalized weakness. She states she cannot walk secondary to weakness. Patient also reports 4 days of a productive cough. As per , she has a decreased PO intake for 2 days and developed altered mental status earlier today. Denies fever. Denies chest pain or palpitations. Denies nausea, vomiting, or diarrhea. Denies any other symptoms. <Esdras Ragland - Last Filed: 12/18/16 21:16> - General Chief Complaint: SIRS, Suspected/Possible Stated Complaint: WEAKNESS/SOB Time Seen by Provider: 12/18/16 18:30 Past History - Past Medical History Anemia: Yes Asthma: No Cancer: Yes (Rt breast CA and lung CA - 2 primaries) Cardiac Disorders: Yes (ASHD S/P STENT) CVA: No COPD: Yes (O2 3L NC PRN.) CHF: No Dementia: No Diabetes: No GI Disorders: No Disorders: Yes (uti,renal insuff.) HTN: Yes Hypercholesterolemia: No Liver Disease: No Seizures: No Thyroid Disease: Yes (hypothyroidism, MULTIPLE NODULES) - Surgical History Abdominal Surgery: No Appendectomy: No Cardiac Surgery: Yes (STENT) Cholecystectomy: No Lung Surgery: Yes (LUNG BX, LUNG CA) Neurologic Surgery: No Orthopedic Surgery: Yes (CERVICAL, LUMBAR LAMINECTOMIES) - Immunization History Immunization Up to Date: Yes - Suicide/Smoking/Psychosocial Hx Smoking Status: Yes Smoking History: Smoker current status UNK Have you smoked in the past 12 months: No Number of Cigarettes Smoked Daily: 0 If you are a former smoker, when did you quit?: 2015 Cigars Per Day: 0 'Breaking Loose' booklet given: 09/29/14 Hx Alcohol Use: No Drug/Substance Use Hx: No Substance Use Type: None Hx Substance Use Treatment: No <Ailyn Vincent - Last Filed: 12/18/16 21:08> <Esdras Ragland - Last Filed: 12/18/16 21:16> - Past Medical History Allergies/Adverse Reactions: Allergies Allergy/AdvReac Type Severity Reaction Status Date / Time No Known Allergies Allergy Verified 12/18/16 18:56 Home Medications: Ambulatory Orders Citalopram Hydrobromide [Celexa -] 40 mg PO DAILY tablet 08/05/16 Ascorbate Calcium [Vitamin C] 500 mg PO DAILY 12/18/16 Calcium Carbonate [Calcium] 1,000 mg PO BID 12/18/16 Carvedilol [Coreg -] 6.25 mg PO BID 12/18/16 Cholecalciferol (Vitamin D3) [Vitamin D3] 4,000 unit PO DAILY 12/18/16 Gabapentin 200 mg PO DAILY 12/18/16 Guaifenesin [Mucinex -] 600 mg PO BID PRN 12/18/16 Hydrocodone/Acetaminophen [Hydrocodon-Acetaminophn 10-325] 1 each PO Q4H PRN Iron 65 mg PO DAILY 12/18/16 Levothyroxine [Synthroid -] 44 mcg PO DAILY 12/18/16 Respiratory Specific PMHX - Complaint Specific PMHX Angina: No Pulmonary Embolus: No <Ailyn Vincent - Last Filed: 12/18/16 21:08> Review of Systems - Review of Systems Able to Perform ROS?: Yes Comments:: 12/18/16 20:02 CONSTITUTIONAL: + Generalized weakness, decreased PO intake No reported: Fever, Chills, Diaphoresis, Malaise, Loss of Appetite HEENT: No reported: Rhinorrhea, Nasal Congestion, Throat Pain, Throat Swelling, Difficulty Swallowing, Mouth Swelling, Ear Pain, Eye Pain, Visual Changes CARDIOVASCULAR: No reported: Chest Pain, Syncope, Palpitations, Irregular Heart Rate, Lightheadedness, Peripheral Edema RESPIRATORY: + cough No reported: Shortness of Breath, SOB with Exertion, Orthopnea, Wheezing, Stridor, Hemoptysis GASTROINTESTINAL: No reported: Abdominal pain, Abdominal Distension, Nausea, Vomiting, Diarrhea, Constipation, Melena, Hematochezia GENITOURINARY: No reported: Dysuria, Frequency, Urgency, Hesitancy, Flank Pain, Genital Pain MUSCULOSKELETAL: No reported: Myalgia, Arthralgia, Joint Swelling, Back pain, Neck Pain SKIN: No reported: Rash, Itching, Pallor HEMEATOLOGIC/IMMUNOLOGIC: No reported: Easy Bleeding, Easy Bruising, Lymphadenopathy, Frequent infections ENDOCRINE: No reported: Unexplained Weight Gain, Unexplained Weight Loss, Heat Intolerance , Cold Intolerance NEUROLOGIC: + altered mental status No reported: Headache, Focal Weakness, Paresthesias, Vertigo, Lightheadedness, Unsteady Gait, Seizure,, Incontinence PSYCHIATRIC: No reported: Anxiety, Depression All Other Systems: Reviewed and Negative <Esdras Ragland - Last Filed: 12/18/16 21:16> *Physical Exam - Vital Signs Last Vital Signs Temp Pulse Resp BP Pulse Ox 101.5 F H 109 H 32 H 145/85 95 12/18/16 19:00 12/18/16 19:05 12/18/16 19:00 12/18/16 19:00 12/18/16 19:07 <Ailyn Vincent - Last Filed: 12/18/16 21:08> - Vital Signs Last Vital Signs Temp Pulse Resp BP Pulse Ox 101.5 F H 109 H 32 H 145/85 95 12/18/16 19:00 12/18/16 19:05 12/18/16 19:00 12/18/16 19:00 12/18/16 19:07 - Physical Exam Comments: 12/18/16 20:02 GENERAL: + warm to touch, febrile, thin Awake and alert. No acute distress. HEENT: + dry mucous membranes Normocephalic, atraumatic. PERRLA, EOMI. No conjunctival pallor. Sclera are non- icteric. Oropharynx is clear. NECK: Supple. Full ROM. No JVD. Carotid pulses 2+ and symmetric, without bruits. No thyromegaly. No lymphadenopathy. CARDIOVASCULAR: + tachycardic Regular rhythm. No murmurs, rubs, or gallops. Distal pulses are 2+ and symmetric. PULMONARY: + hypoxic, scattered rhonchi at both bases No wheezing, rales. ABDOMINAL: Soft. Non-tender. Non-distended. No rebound or guarding. No organomegaly. Normoactive bowel sounds. MUSCULOSKELETAL Normal range of motion at all joints. No bony deformities or tenderness. No CVA tenderness. EXTREMITIES: + chronic venous stasis changes bilaterally, chronic hip pain secondary to injuring it several years ago. No erythema. No cellulitis. No cyanosis. No clubbing. No edema. No calf tenderness. SKIN: Warm and dry. Normal capillary refill. No rashes. No jaundice. NEUROLOGICAL:+ can answer simple questions but not anything involved, A&O x 2 Cranial nerves 2-12 intact. No deficits to light touch and temperature in face, upper extremities and lower extremities. No motor deficits in the in face, upper extremities and lower extremities. Normoreflexic in the upper and lower extremities. Normal speech. Toes are down-going bilaterally. PSYCHIATRIC: Cooperative. Good eye contact. Appropriate mood and affect. <Esdras Ragland - Last Filed: 12/18/16 21:16> ED Treatment Course - LABORATORY CBC & Chemistry Diagram: 12/18/16 18:40 12/18/16 18:40 - ADDITIONAL ORDERS Additional order review: Laboratory Results 12/18/16 12/18/16 12/18/16 19:05 18:41 18:40 PT with INR INR PTT (Actin FS) VBG pH 7.35 POC VBG pCO2 39.0 D POC VBG pO2 25.4 L Mixed VBG HCO3 21.1 Sodium Potassium Chloride Carbon Dioxide Anion Gap BUN Creatinine Creat Clearance w eGFR Random Glucose Lactic Acid Calcium Total Bilirubin AST ALT Alkaline Phosphatase Creatine Kinase Troponin I Total Protein Albumin Urine Color Yellow Urine Appearance Cloudy Urine pH 5.0 Urine Protein 1+ H Urine Glucose (UA) Negative Urine Ketones Negative Urine Blood 1+ H Urine Nitrite Negative Urine Bilirubin Negative Urine Urobilinogen Negative Urine RBC 2 Urine WBC 231 Urine Bacteria Rare Urine Yeast Few Blood Type Cancelled Antibody Screen Cancelled Spec Expiration Date Cancelled 12/18/16 12/18/16 12/18/16 18:40 18:40 18:40 PT with INR 11.80 INR 1.04 PTT (Actin FS) 25.2 L VBG pH POC VBG pCO2 POC VBG pO2 Mixed VBG HCO3 Sodium Cancelled Potassium Cancelled Chloride Cancelled Carbon Dioxide Cancelled Anion Gap Cancelled BUN Cancelled Creatinine Cancelled Creat Clearance w eGFR Cancelled Random Glucose Cancelled Lactic Acid 1.0 Calcium Cancelled Total Bilirubin Cancelled AST Cancelled ALT Cancelled Alkaline Phosphatase Cancelled Creatine Kinase Cancelled Troponin I Cancelled Total Protein Cancelled Albumin Cancelled Urine Color Urine Appearance Urine pH Urine Protein Urine Glucose (UA) Urine Ketones Urine Blood Urine Nitrite Urine Bilirubin Urine Urobilinogen Urine RBC Urine WBC Urine Bacteria Urine Yeast Blood Type Antibody Screen Spec Expiration Date 12/18/16 18:30 Influenza Types A,B Antigen (SAE) - Final Nasopharyngeal Swab - Final 12/18/16 18:40 RBC 3.17 L MCV 85.7 MCHC 33.5 RDW 14.8 D MPV 6.8 L Neutrophils % 87.1 H Lymphocytes % 7.7 L D Monocytes % 5.1 Eosinophils % 0.0 D Basophils % 0.1 - RADIOLOGY Radiology Studies Ordered: Category Date Time Status CHEST X-RAY PORTABLE* [RAD] Stat Radiology 12/18/16 18:36 Ordered - Medications Given in the ED: ED Medications Discontinued Medications Generic Name Dose Route Start Last Admin Trade Name Freq PRN Reason Stop Dose Admin Acetaminophen 1,000 mg 12/18/16 19:13 12/18/16 19:25 Ofirmev Injection - IVPB 12/18/16 19:14 1,000 mg ONCE ONE Administration Sodium Chloride 500 ml 12/18/16 18:36 12/18/16 19:04 Normal Saline - IV 12/18/16 18:37 500 ml ONCE STA Administration <Ailyn Vincenth - Last Filed: 12/18/16 21:08> - LABORATORY CBC & Chemistry Diagram: 12/18/16 18:40 12/18/16 18:40 - ADDITIONAL ORDERS Additional order review: Laboratory Results 12/18/16 12/18/16 12/18/16 19:05 18:41 18:40 PT with INR INR PTT (Actin FS) VBG pH 7.35 POC VBG pCO2 39.0 D POC VBG pO2 25.4 L Mixed VBG HCO3 21.1 Sodium Potassium Chloride Carbon Dioxide Anion Gap BUN Creatinine Creat Clearance w eGFR Random Glucose Lactic Acid Calcium Total Bilirubin AST ALT Alkaline Phosphatase Creatine Kinase Troponin I Total Protein Albumin Urine Color Yellow Urine Appearance Cloudy Urine pH 5.0 Urine Protein 1+ H Urine Glucose (UA) Negative Urine Ketones Negative Urine Blood 1+ H Urine Nitrite Negative Urine Bilirubin Negative Urine Urobilinogen Negative Urine RBC 2 Urine WBC 231 Urine Bacteria Rare Urine Yeast Few Blood Type Cancelled Antibody Screen Cancelled Spec Expiration Date Cancelled 12/18/16 12/18/16 12/18/16 18:40 18:40 18:40 PT with INR 11.80 INR 1.04 PTT (Actin FS) 25.2 L VBG pH POC VBG pCO2 POC VBG pO2 Mixed VBG HCO3 Sodium 138 Potassium 4.1 Chloride 111 H Carbon Dioxide 21 Anion Gap 6 L BUN 53 H D Creatinine 2.0 H Creat Clearance w eGFR 24.22 Random Glucose 102 D Lactic Acid 1.0 Calcium 9.0 Total Bilirubin 0.4 AST 26 D ALT 24 D Alkaline Phosphatase 80 Creatine Kinase 51 Troponin I < 0.02 Total Protein 6.8 D Albumin 2.1 L D Urine Color Urine Appearance Urine pH Urine Protein Urine Glucose (UA) Urine Ketones Urine Blood Urine Nitrite Urine Bilirubin Urine Urobilinogen Urine RBC Urine WBC Urine Bacteria Urine Yeast Blood Type Antibody Screen Spec Expiration Date 12/18/16 18:30 Influenza Types A,B Antigen (SAE) - Final Nasopharyngeal Swab - Final 12/18/16 18:40 RBC 3.17 L MCV 85.7 MCHC 33.5 RDW 14.8 D MPV 6.8 L Neutrophils % 87.1 H Lymphocytes % 7.7 L D Monocytes % 5.1 Eosinophils % 0.0 D Basophils % 0.1 - Medications Given in the ED: ED Medications Discontinued Medications Generic Name Dose Route Start Last Admin Trade Name Freq PRN Reason Stop Dose Admin Acetaminophen 1,000 mg 12/18/16 19:13 12/18/16 19:25 Ofirmev Injection - IVPB 12/18/16 19:14 1,000 mg ONCE ONE Administration Sodium Chloride 500 ml 12/18/16 18:36 12/18/16 19:04 Normal Saline - IV 12/18/16 18:37 500 ml ONCE STA Administration <Esdras Ragland - Last Filed: 12/18/16 21:16> Medical Decision Making - Medical Decision Making 12/18/16 21:15 Case discussed with GREGORIO Mccullough, covering for Dr. Thompson, who said to admit the patient for pneumonia under Dr. Thompson's service. <Esdras Ragland - Last Filed: 12/18/16 21:16> *DC/Admit/Observation/Transfer - Discharge Dispostion Admit: Yes <Ailyn Vincent - Last Filed: 12/18/16 21:08> - Attestations Scribe Attestion: 12/18/16 20:36 Documentation prepared by Esdras Ragland, acting as biomedical manager for Ailyn Vincent MD <Esdrsa Ragland - Last Filed: 12/18/16 21:16> Diagnosis at time of Disposition: Renal insufficiency, Fever in adult COPD (chronic obstructive pulmonary disease) Qualifiers: COPD type: COPD with acute exacerbation Qualified Code(s): J44.1 - Chronic obstructive pulmonary disease with (acute) exacerbation Leukocytosis Qualifiers: Leukocytosis type: unspecified Qualified Code(s): D72.829 - Elevated white blood cell count, unspecified Urinary tract infection Qualifiers: Urinary tract infection type: site unspecified Hematuria presence: without hematuria Qualified Code(s): N39.0 - Urinary tract infection, site not specified Pneumonia Qualifiers: Pneumonia type: due to unspecified organism Laterality: right Lung location: lower lobe of lung Qualified Code(s): J18.1 - Lobar pneumonia, unspecified organism Anemia Qualifiers: Anemia type: due to chronic kidney disease Chronic kidney disease stage: unspecified stage Qualified Code(s): N18.9 - Chronic kidney disease, unspecified - Referrals Referrals: Isaiah Thompson MD [Primary Care Provider] -
[2016-12-18] MEDS ORDERED: PIPERACILLIN/TAZOB 3.375 GM 50 ML IVPB ONE ×2 (20:48→20:58)
[2016-12-18] MEDS ORDERED: VANCOMYCIN 1,000 MG in DEXTROSE 5%-WATER - 250 ML IVPB STA (20:58)
[2016-12-18] MEDS ORDERED: VANCOMYCIN 1 GRAM (PRE-DOCKED) 250 ML IVPB ONE (21:17)
[2016-12-18] MEDS ORDERED: [UNRECOGNIZED DRUG - OTHER] PO PRN (22:38)
[2016-12-18] MEDS ORDERED: HYDROCODONE PO PRN (22:38)
[2016-12-18] MEDS ORDERED: ACETAMINOPHEN PO PRN (22:38)
[2016-12-18] MEDS ORDERED: DEXTROSE 5%-NORMAL SALINE 1,000 ML IV SCH (22:45)
[2016-12-18 22:48] LABS: URINE LEUK ESTERASE 3+ (NEGATIVE)
[2016-12-18] MEDS ORDERED: oxyCODONE HCL 5 MG TABLET PO PRN (22:56)
[2016-12-18] MEDS ORDERED: PIPERACILLIN/TAZOB 3.375 GM/50 ML PRE-DOCKED IVPB ONE (23:00)
[2016-12-18] MEDS ORDERED: PIPERACIL/TAZOB 3.375 GM 3.375 GM/50 ML PREMIX IVPB SCH (23:00)
[2016-12-18 23:55] VITALS: BMI 15.8
[2016-12-19] MEDS ORDERED: PIPERACIL/TAZOB 3.375 GM 3.375 GM/50 ML PREMIX IVPB ONE (03:00)
[2016-12-19] MEDS: guaiFENesin 600 MG TABLET.ER (FP) PO PRN ×2 (06:12→21:31)
[2016-12-19] MEDS: LEVOTHYROXINE NA 88 MCG TABLET (FP) PO SCH (06:12)
[2016-12-19 08:07] LABS: BASOPHIL 0.2 % (0-2.0); EOSINOPHIL 0.2 % (0-4.5); MCH 28.3 pg (25.7-33.7); MEAN CELL VOLUME 85.8 fl (80-96); MEAN PLT VOLUME 6.5 fl (7.5-11.1); PLATELET COUNT 324 K/MM3 (134-434); WHITE BLOOD COUNT 14.9 K/mm3 (4.0-10.0)
[2016-12-19 08:33] LABS: ALBUMIN 1.8 g/dl (3.4-5.0); ALK PHOS 68 U/L (45-117); ANION GAP 6 (8-16); BILIRUBIN,TOTAL 0.3 mg/dL (0.2-1.0); CALCIUM 8.3 mg/dL (8.5-10.1); CO2 20 mmol/L (21-32); CREATININE 1.9 mg/dL (0.55-1.02); GLUCOSE,RANDOM 106 mg/dL (74-106); SGOT/AST 22 U/L (15-37); SGPT/ALT 21 U/L (12-78); TOT PROT 5.9 g/dl (6.4-8.2)
--- NOTE | 2016-12-19 08:58 | HP ---
Admitting History and Physical - Past Medical History Cardiovascular: Yes: Aortic Stenosis, CAD (with coronary stenting), HTN, Hyperlipdemia, Mitral Insufficiency, Pulmonary Hypertension Pulmonary: Yes: Cancer (Chemothrerapy for small cell carcinoma- Dr Simpson), COPD Gastrointestinal: Yes: Diverticulosis, Other (Breast lumpectomy) Renal/: Yes: Renal Failure, Renal Inusuff ...: No Heme/Onc: Yes: Cancer Psych: Yes: Anxiety Musculoskeletal: Yes: Chronic low back pain, Osteoarthritis Endocrine: Yes: Hypothyroidism, Osteopenia - Past Surgical History Past Surgical History: Yes: Laminectomy (cervical , lumbar ), Stent, Tonsillectomy, Tubal Ligation - Smoking History Smoking history: Former smoker Have you smoked in the past 12 months: No Aproximately how many cigarettes per day: 0 If you are a former smoker, when did you quit?: 2014 - Alcohol/Substance Use Hx Alcohol Use: No Date of Last Use: 02/27/81 - Social History ADL: Independent 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 History of Recent Travel: No Home Medications - Allergies Allergies/Adverse Reactions: Allergies Allergy/AdvReac Type Severity Reaction Status Date / Time No Known Allergies Allergy Verified 12/18/16 18:56 - Home Medications Home Medications: Ambulatory Orders Citalopram Hydrobromide [Celexa -] 40 mg PO DAILY tablet 08/05/16 Ascorbate Calcium [Vitamin C] 500 mg PO DAILY 12/18/16 Calcium Carbonate [Calcium] 1,000 mg PO BID 12/18/16 Carvedilol [Coreg -] 6.25 mg PO BID 12/18/16 Cholecalciferol (Vitamin D3) [Vitamin D3] 4,000 unit PO DAILY 12/18/16 Gabapentin 200 mg PO DAILY 12/18/16 Guaifenesin [Mucinex -] 600 mg PO BID PRN 12/18/16 Hydrocodone/Acetaminophen [Hydrocodon-Acetaminophn 10-325] 1 each PO Q4H PRN Iron 65 mg PO DAILY 12/18/16 Levothyroxine [Synthroid -] 44 mcg PO DAILY 12/18/16 Family Disease History - Family Disease History Family Disease History: CA: Father (diffuse unknown primary), Sister ( of lung cancer), Other: Mother ( after hip fracture) Physical Examination Vital Signs: Vital Signs Temperature 98.1 F 12/19/16 08:00 Pulse Rate 94 H 12/19/16 08:00 Respiratory Rate 18 12/19/16 08:00 Blood Pressure 126/79 12/19/16 08:00 O2 Sat by Pulse Oximetry (%) 95 12/18/16 22:30 Labs: CBC, BMP 12/19/16 07:35 12/19/16 07:35 Problem List - Problems (1) Pneumonia Assessment/Plan: IV ABX ID AND PULM CONSULT NEBS Code(s): J18.9 - PNEUMONIA, UNSPECIFIED ORGANISM Qualifiers: Pneumonia type: due to unspecified organism Laterality: right Lung location: lower lobe of lung Qualified Code(s): J18.1 - Lobar pneumonia, unspecified organism; J18.1 - Lobar pneumonia, unspecified organism; J18.1 - Lobar pneumonia, unspecified organism (2) COPD (chronic obstructive pulmonary disease) Assessment/Plan: NEBS OXYGEN Code(s): J44.9 - CHRONIC OBSTRUCTIVE PULMONARY DISEASE, UNSPECIFIED Qualifiers : COPD type: COPD with acute lower respiratory infection Qualified Code(s): J44.0 - Chronic obstructive pulmonary disease with acute lower respiratory infection; J44.0 - Chronic obstructive pulmonary disease with acute lower respiratory infection; J44.0 - Chronic obstructive pulmonary disease with acute lower respiratory infection; J44.0 - Chronic obstructive pulmonary disease with acute lower respiratory infection (3) Anemia Assessment/Plan: FOLLOW CBC Code(s): D64.9 - ANEMIA, UNSPECIFIED Qualifiers: Anemia type: due to chronic kidney disease Chronic kidney disease stage : unspecified stage Qualified Code(s): N18.9 - Chronic kidney disease, unspecified; N18.9 - Chronic kidney disease, unspecified; D63.1 - Anemia in chronic kidney disease; D63.1 - Anemia in chronic kidney disease (4) Renal insufficiency Assessment/Plan: MONITOR DC IVF Code(s): N28.9 - DISORDER OF KIDNEY AND URETER, UNSPECIFIED
[2016-12-19] MEDS ORDERED: PIPERACILLIN/TAZOB 3.375 GM/50 ML PRE-DOCKED IVPB SCH (09:15)
--- NOTE | 2016-12-19 09:15 | PN ---
Progress Note (short form) - Note Progress Note: ID consult dictated imp/reccd 76 year old female with COPD- on home oxygen history of dry gangrene of the thumb- followed at [facility] - plastic surgery history of lung cancer- no treatment at present admitted with 4 days of worsening cough and weakness not eating at home no travel no fevers no sick contacts cxray with new Right Base Infiltrate prior sputum culture with pseudomonas imp/reccd RLL pneumonia dry gangrene of the thumb-no signs of soft tissue infection COPD (home oxygen) history of lung cancer history of breast cancer ckd given prior pseudomonas in sputum, would continue zosyn/zithromax f/u cultures- blood and sputum f/u legionella urinary antigen D/W Dr Thompson Problem List - Problems (1) Pneumonia Code(s): J18.9 - PNEUMONIA, UNSPECIFIED ORGANISM Qualifiers: Pneumonia type: due to unspecified organism Laterality: right Lung location: lower lobe of lung Qualified Code(s): J18.1 - Lobar pneumonia, unspecified organism; J18.1 - Lobar pneumonia, unspecified organism; J18.1 - Lobar pneumonia, unspecified organism (2) Gangrene of thumb Code(s): I96 - GANGRENE, NOT ELSEWHERE CLASSIFIED (3) COPD (chronic obstructive pulmonary disease) Code(s): J44.9 - CHRONIC OBSTRUCTIVE PULMONARY DISEASE, UNSPECIFIED Qualifiers : COPD type: COPD with acute lower respiratory infection Qualified Code(s): J44.0 - Chronic obstructive pulmonary disease with acute lower respiratory infection; J44.0 - Chronic obstructive pulmonary disease with acute lower respiratory infection; J44.0 - Chronic obstructive pulmonary disease with acute lower respiratory infection; J44.0 - Chronic obstructive pulmonary disease with acute lower respiratory infection (4) CKD (chronic kidney disease) Code(s): N18.9 - CHRONIC KIDNEY DISEASE, UNSPECIFIED
[2016-12-19 10:00] LABS: MCH 28.2 pg (25.7-33.7); MCHC 33.1 g/dl (32.0-36.0); MEAN CELL VOLUME 85.4 fl (80-96); MEAN PLT VOLUME 6.5 fl (7.5-11.1); PLATELET COUNT 355 K/MM3 (134-434); RDW 14.9 % (11.6-15.6); WHITE BLOOD COUNT 17.1 K/mm3 (4.0-10.0)
[2016-12-19] MEDS ORDERED: AZITHROMYCIN IVPB 500 MG in DEXTROSE 5%-WATER - 250 ML IVPB ONE (10:00)
--- NOTE | 2016-12-19 10:08 | EKG ---
Test Reason : Blood Pressure : / mmHG Vent. Rate : 112 BPM Atrial Rate : 112 BPM P-R Int : 142 ms QRS Dur : 080 ms QT Int : 282 ms P-R-T Axes : 079 055 064 degrees QTc Int : 384 ms SINUS TACHYCARDIA WITH PREMATURE SUPRAVENTRICULAR COMPLEXES AND WITH OCCASIONAL PREMATURE VENTRICULAR COMPLEXES OTHERWISE NORMAL ECG WHEN COMPARED WITH ECG OF 29-AUG-2016 08:56, VENT. RATE HAS INCREASED Confirmed by ANTONY CLEMENTE MD ([id number]) on 12/19/2016 10:07:40 AM Referred By: Confirmed By:ANTONY CLEMENTE MD
[2016-12-19] MEDS ORDERED: PT OWN MED DRAWER 7, Y5N ONE (10:24)
[2016-12-19] MEDS: PIPERACILLIN/TAZOB 2.25 GM 50 ML IVPB SCH ×2 (10:36→17:29)
[2016-12-19] MEDS: HEPARIN NA (PORCINE) 5,000 UNITS/ML 1ML VIAL SQ SCH ×2 (10:37→21:31)
[2016-12-19] MEDS: CITALOPRAM HYDROBROMIDE 20 MG TABLET (FP) PO SCH (10:37)
[2016-12-19] MEDS: CARVEDILOL 6.25 MG TABLET (FP) PO SCH ×2 (10:37→21:31)
[2016-12-19] MEDS: FERROUS SO4 325 MG TABLET (FP) PO SCH (10:37)
[2016-12-19] MEDS: CALCIUM (OYSTER SHELL) 500 MG TABLET (FP) PO SCH ×2 (10:38→21:31)
[2016-12-19] MEDS: ASCORBIC ACID 500 MG TABLET (FP) PO SCH (10:38)
[2016-12-19] MEDS: CHOLECALCIFEROL (VITAMIN D3) 1,000 UNIT TABLET (FP) PO SCH (10:38)
[2016-12-19] MEDS: GABAPENTIN 100 MG CAPSULE (FP) PO SCH (10:38)
[2016-12-19] MEDS: ALBUTEROL SO4 2.5/IPRATROPIUM 0.5 INH SOL 3 ML VIAL.NEB. NEB SCH ×2 (11:02→17:46)
[2016-12-19] MEDS: ACETAMINOPHEN 325 MG TABLET (FP) PO PRN (11:58)
--- NOTE | 2016-12-19 12:06 | CONS ---
DATE OF CONSULTATION: REQUESTING PHYSICIAN: Isaiah Thompson MD HISTORY: This is a 76-year-old woman with a past medical history of COPD on home oxygen, lung cancer off chemotherapy apparently for the last 1-2 years, history of breast cancer and chronic kidney disease, dry gangrene of the left thumb who is admitted with progressive weakness at home yesterday. She was unable to get out of bed. She notes as well she has had an increasing cough over the last 4 days. There has been no hemoptysis. She denies any vomiting. She notes several episodes of diarrhea that have resolved. She denies any fevers. She was evaluated in the emergency room and found to have an elevated white count and a right lower lobe infiltrate. She denies any recent antibiotics. She was last hospitalized at [facility] in August. She has been following up with a plastic surgeon at [facility] for her thumb and reports she was scheduled for surgery for her hand later this week. PAST MEDICAL HISTORY: Notable for aortic stenosis, coronary artery disease with stenting, hypertension, hyperlipidemia, pulmonary hypertension, lung cancer, small cell carcinoma, history of chemotherapy and RT in the past, COPD. She is on home oxygen. She has diverticulosis, chronic kidney disease, anxiety, chronic low back pain, hypothyroidism, and osteopenia. History of GI bleed. She has had pneumonia in the past and has a history of right breast cancer. PAST SURGICAL HISTORY: Notable for cervical and lumbar laminectomy, tonsillectomy, and tubal ligation. FAMILY HISTORY: Noncontributory. SOCIAL HISTORY: She is . She lives with her . She stop smoking in 2014. She is ambulating with a walker at home. She denies any sick contacts. ALLERGIES: No known drug allergies. MEDICATIONS: She denies any recent antibiotic use. She denies any recent steroid use. Medications at home include Celexa, vitamin C, calcium, Coreg, vitamin D, gabapentin, Mucinex, hydrocodone, iron, and levothyroxine. REVIEW OF SYSTEMS: She denies any headaches, difficulty swallowing, abdominal or chest pain. Note she had some diarrhea, which stopped. Note she has chronic cough and extreme weakness. She has been anorexic and not eating for the last several days. There has been no nausea or vomiting. She has no dysuria. PHYSICAL EXAMINATION: Vital Signs: T-max 101.5, current temperature 98.1, pulse 94, blood pressure 126/79, respiratory rate 18, O2 saturation 95% on 2 L. She weighs 95 pounds. HEENT: She is normocephalic. Her eyes are anicteric. She has no thrush. Neck: Supple. Chest Wall: She has a port in her left chest that is not accessed. Heart: Regular rate and rhythm. She has a 2/6 systolic ejection murmur. Lungs: Crackles at the right base. Her left lung is clear. Abdomen: Scaphoid, nontender. Extremities: Without edema. Her left thumb tip has dry gangrene. There is no associated odor. There is no associated erythema or drainage. LABORATORIES: Notable for white count of 17 on admission, hemoglobin 9.1, platelets 361, BUN 51, creatinine 1.9. Liver function tests are normal. Urinalysis has 231 white cells. Blood cultures and urine culture are pending. Chest x-ray reveals a right lower lobe infiltrate with effusion. In summary, this is a 76-year-old woman with right lower lobe pneumonia, dry gangrene of the thumb, no signs of soft tissue infection, severe COPD on home oxygen, history of lung cancer, history of breast cancer, chronic kidney disease with prior sputum cultures positive for pseudomonas. Given this, I would continue Zosyn and Zithromax as ordered. Would follow up her cultures and check a Legionella urinary antigen. Her care was discussed with Dr. Thompson. At this time, there is no sign of any infection of her thumb. FAITH MEDEROS M.D. [id number]
--- NOTE | 2016-12-19 16:07 | PN ---
Progress Note (short form) - Note Progress Note: PULMONARY CONSULTATION DICTATED 12/19/16 IMP RLL PNEUMONIA CHRONIC HYPOXEMIC RESPIRATORY FAILURE ADVANCED COPD LUNG CA SMALL CELL S/P CHEMO H/O BREAST CA PULMONARY HTN ASHD S/P STENT ANEMIA CKD PLAN IV ANTIBIOTICS PER ID INHALED BRONCHODILATORS O2 CULTURES CHEST CT F/U CHEST X-RAYS TO DOCUMENT RESOLUTION OF INFILTRATES MONITOR H+H,RENAL FUNCTION DR ALVAREZ Problem List - Problems (1) Anemia Code(s): D64.9 - ANEMIA, UNSPECIFIED Qualifiers: Anemia type: due to chronic kidney disease Chronic kidney disease stage : unspecified stage Qualified Code(s): N18.9 - Chronic kidney disease, unspecified; N18.9 - Chronic kidney disease, unspecified; D63.1 - Anemia in chronic kidney disease; D63.1 - Anemia in chronic kidney disease (2) CKD (chronic kidney disease) Code(s): N18.9 - CHRONIC KIDNEY DISEASE, UNSPECIFIED (3) COPD (chronic obstructive pulmonary disease) Code(s): J44.9 - CHRONIC OBSTRUCTIVE PULMONARY DISEASE, UNSPECIFIED Qualifiers : COPD type: COPD with acute lower respiratory infection Qualified Code(s): J44.0 - Chronic obstructive pulmonary disease with acute lower respiratory infection; J44.0 - Chronic obstructive pulmonary disease with acute lower respiratory infection; J44.0 - Chronic obstructive pulmonary disease with acute lower respiratory infection; J44.0 - Chronic obstructive pulmonary disease with acute lower respiratory infection (4) Fever in adult Code(s): R50.9 - FEVER, UNSPECIFIED (5) Leukocytosis Code(s): D72.829 - ELEVATED WHITE BLOOD CELL COUNT, UNSPECIFIED Qualifiers: Leukocytosis type: unspecified Qualified Code(s): D72.829 - Elevated white blood cell count, unspecified; D72.829 - Elevated white blood cell count, unspecified (6) Pneumonia Code(s): J18.9 - PNEUMONIA, UNSPECIFIED ORGANISM Qualifiers: Pneumonia type: due to unspecified organism Laterality: right Lung location: lower lobe of lung Qualified Code(s): J18.1 - Lobar pneumonia, unspecified organism; J18.1 - Lobar pneumonia, unspecified organism; J18.1 - Lobar pneumonia, unspecified organism (7) ASHD (arteriosclerotic heart disease) Code(s): I25.10 - ATHSCL HEART DISEASE OF [place] CORONARY ARTERY W/O ANG PCTRS (8) Aortic stenosis Code(s): I35.0 - NONRHEUMATIC AORTIC (VALVE) STENOSIS Qualifiers: Cardiac valve disease etiology: nonrheumatic Qualified Code(s): I35.0 - Nonrheumatic aortic (valve) stenosis; I35.0 - Nonrheumatic aortic (valve ) stenosis (9) Breast CA Code(s): C50.919 - MALIGNANT NEOPLASM OF UNSP SITE OF UNSPECIFIED FEMALE BREAST (10) CAD (coronary artery disease) Code(s): I25.10 - ATHSCL HEART DISEASE OF [place] CORONARY ARTERY W/O ANG PCTRS Qualifiers: Coronary Disease-Associated Artery/Lesion type: [place] artery [place] vs. transplanted heart: [place] heart Associated angina: without angina Qualified Code(s): I25.10 - Atherosclerotic heart disease of [place] coronary artery without angina pectoris; I25.10 - Atherosclerotic heart disease of [place] coronary artery without angina pectoris; I25.10 - Atherosclerotic heart disease of [place] coronary artery without angina pectoris (11) Chronic hypoxemic respiratory failure Code(s): J96.11 - CHRONIC RESPIRATORY FAILURE WITH HYPOXIA (12) Cough Code(s): R05 - COUGH (13) Gangrene of thumb Code(s): I96 - GANGRENE, NOT ELSEWHERE CLASSIFIED (14) Hypothyroid Code(s): E03.9 - HYPOTHYROIDISM, UNSPECIFIED Qualifiers: Hypothyroidism type: unspecified Qualified Code(s): E03.9 - Hypothyroidism, unspecified; E03.9 - Hypothyroidism, unspecified; E03.9 - Hypothyroidism, unspecified (15) Hypoxia Code(s): R09.02 - HYPOXEMIA (16) Lung cancer Code(s): C34.90 - MALIGNANT NEOPLASM OF UNSP PART OF UNSP BRONCHUS OR LUNG Qualifiers: Lung location: unspecified part of lung (17) Right lower lobe pneumonia Code(s): J18.1 - LOBAR PNEUMONIA, UNSPECIFIED ORGANISM (18) Severe malnutrition Code(s): E43 - UNSPECIFIED SEVERE PROTEIN-CALORIE MALNUTRITION
--- NOTE | 2016-12-19 17:49 | CONS ---
DATE OF CONSULTATION: 12/19/2016 PULMONARY CONSULTATION REFERRING PHYSICIAN: Isaiah Thompson MD HISTORY OF PRESENT ILLNESS: This patient is a 76-year-old white female with extensive past medical history which includes advanced COPD on home oxygen therapy; lung carcinoma, small cell, status post chemotherapy, last 1-1/2 years, initially diagnosed 4 years ago; history of breast carcinoma; history of chronic kidney disease; dry gangrene of the left thumb; aortic stenosis; coronary artery disease with stenting; hypertension; hyperlipidemia; pulmonary hypertension admitted to [facility] with complaint of generalized weakness, increasing cough, and sputum production over the past 4 days. Patient denies complaints of chest pain, palpitations, not any nausea or vomiting. Not any fevers. She also denied hemoptysis. She presented to the emergency room with the above. In the ER, she was noted to have chest x-ray with right lower lobe pneumonia. She was admitted to the floor and started on antibiotic therapy. Patient denies any recent travel. There is no history of occupational exposure to chemicals or fumes. She has a history of smoking and quit a few years ago. There is no history of any sick contacts at home. PAST MEDICAL HISTORY: Includes advanced COPD on home oxygen therapy, lung cancer, small cell type, status post chemotherapy; history of breast carcinoma; chronic kidney disease; dry gangrene; aortic stenosis; ASHD, status post stent; hypertension; hyperlipidemia; pulmonary hypertension; osteopenia; and hypothyroidism. REVIEW OF SYSTEMS: Positive weakness. Positive shortness of breath. Positive cough. No chest pain. No palpitation. No nausea. No vomiting. No abdominal pain. MEDICATIONS: Current medications include Zithromax, Zosyn, heparin, Neurontin, Celexa, DuoNeb, Coreg, Mucinex, Feosol, Roxicodone, Os-Ced, Synthroid, vitamin C and vitamin D3. PHYSICAL EXAMINATION: General: Patient is a thin, white female, well, awake, alert, in no acute distress. Vital Signs: She is currently afebrile. Blood pressure is 199/55, respiratory rate is 22, O2 saturation is 93% on 2 L. HEENT: Exam is normocephalic, atraumatic. Neck: Supple. Heart: Regular. S1, S2. Chest: Crackles at the right base. Abdomen: Soft. Bowel sounds are positive. Extremities: No cyanosis or edema. LABORATORY: WBC is 17.1, hemoglobin 8.5, hematocrit 25.8, with a platelet count of 355,000. INR is 1.04. Chemistries: BUN 51, creatinine 1.9. Chest x-ray: There is a pleural fluid and infiltrate at the right base. IMPRESSION: 1. End stage COPD 2. Chronic hypoxemic respiratory failure secondary to COPD 3. Right lower lobe pneumonia. 4. History of lung carcinoma, small cell, status post chemotherapy. 5. History of breast carcinoma. R. Aortic stenosis. 7. Arteriosclerotic heart disease, status post stent. 8. Anemia. 9. History of hypertension. 10. Hyperlipidemia. 11. Pulmonary hypertension. PLAN: IV antibiotics as per Infectious Disease. Inhaled bronchodilators. Supplemental O2. Obtain sputum cultures. Obtain followup chest CT as well as follow up chest x-rays to document resolution of infiltrates. Nutritional support. DVT prophylaxis. Monitor hemoglobin and hematocrit as well as renal function. Lorena [id number] MTDD
[2016-12-19] MEDS: oxyCODONE HCL 5 MG TABLET PO PRN (21:30)
[2016-12-20] MEDS: ALBUTEROL SO4 2.5/IPRATROPIUM 0.5 INH SOL 3 ML VIAL.NEB. NEB SCH ×4 (00:16→18:50)
[2016-12-20] MEDS: PIPERACILLIN/TAZOB 2.25 GM 50 ML IVPB SCH ×3 (02:35→18:21)
[2016-12-20] MEDS: LEVOTHYROXINE NA 88 MCG TABLET (FP) PO SCH (06:02)
[2016-12-20] MEDS: oxyCODONE HCL 5 MG TABLET PO PRN ×3 (06:03→21:27)
[2016-12-20 06:06] LABS: SERUM IRON 8 ug/dL (27-139); TOTAL IRON BINDING CAPACITY 149 ug/dL (250-450); UIBC 141 ug/dL (118-369)
[2016-12-20 06:43] LABS: BASOPHIL 0.3 % (0-2.0); EOSINOPHIL 0.6 % (0-4.5); MCH 28.6 pg (25.7-33.7); MCHC 33.3 g/dl (32.0-36.0); MEAN CELL VOLUME 85.9 fl (80-96); MEAN PLT VOLUME 6.5 fl (7.5-11.1); NEUTROPHILS 82.1 % (42.8-82.8); PLATELET COUNT 335 K/MM3 (134-434); RDW 14.8 % (11.6-15.6)
[2016-12-20 07:08] LABS: ALBUMIN 1.8 g/dl (3.4-5.0); ANION GAP 10 (8-16); CALCIUM 8.9 mg/dL (8.5-10.1); CO2 20 mmol/L (21-32); GLUCOSE,RANDOM 86 mg/dL (74-106)
[2016-12-20 07:13] LABS: ALK PHOS 67 U/L (45-117); BILIRUBIN,TOTAL 0.4 mg/dL (0.2-1.0); CREATININE 1.9 mg/dL (0.55-1.02); SGOT/AST 51 U/L (15-37); SGPT/ALT 42 U/L (12-78)
--- NOTE | 2016-12-20 09:10 | PN ---
Progress Note, Physician History of Present Illness: FEELS BETTER - Current Medication List Current Medications: Active Medications Acetaminophen (Tylenol -) 325 mg PO Q4H PRN PRN Reason: PAIN Stop: 12/21/16 22:55 Last Admin: 12/19/16 11:58 Dose: 325 mg Albuterol/Ipratropium (Duoneb -) 1 amp NEB QIDR [facility] Last Admin: 12/20/16 06:46 Dose: 1 amp Ascorbic Acid (Vitamin C -) 500 mg PO DAILY [facility] Last Admin: 12/19/16 10:38 Dose: 500 mg Calcium Carbonate (Os-Ced 500mg -) 1,000 mg PO BID [facility] Last Admin: 12/19/16 21:31 Dose: 1,000 mg Carvedilol (Coreg -) 6.25 mg PO BID [facility] Last Admin: 12/19/16 21:31 Dose: 6.25 mg Cholecalciferol (Vitamin D3 -) 4,000 unit PO DAILY [facility] Last Admin: 12/19/16 10:38 Dose: 4,000 unit Citalopram Hydrobromide (Celexa -) 40 mg PO DAILY [facility] Last Admin: 12/19/16 10:37 Dose: 40 mg Ferrous Sulfate (Feosol -) 325 mg PO DAILY [facility] Last Admin: 12/19/16 10:37 Dose: 325 mg Furosemide (Lasix Injection -) 40 mg IVPUSH ONCE ONE Stop: 12/20/16 09:08 Gabapentin (Neurontin -) 200 mg PO DAILY [facility] Last Admin: 12/19/16 10:38 Dose: 200 mg Guaifenesin (Mucinex -) 600 mg PO BID PRN PRN Reason: COUGH Last Admin: 12/19/16 21:31 Dose: 600 mg Heparin Sodium (Porcine) (Heparin -) 5,000 unit SQ BID [facility] Last Admin: 12/19/16 21:31 Dose: 5,000 unit Azithromycin 250 mg/ Dextrose 250 mls @ 250 mls/hr IVPB DAILY [facility] Piperacillin/Tazobactam/Dextrose (Zosyn 2.25gm Ivpb (Premix)) 50 mls @ 100 mls/ hr IVPB Q8H-IV [facility] Last Admin: 12/20/16 02:35 Dose: 100 mls/hr Levothyroxine Sodium (Synthroid -) 44 mcg PO DAILY@0700 [facility] Last Admin: 12/20/16 06:02 Dose: 44 mcg Oxycodone HCl (Roxicodone -) 10 mg PO Q4H PRN PRN Reason: PAIN Last Admin: 12/20/16 06:03 Dose: 10 mg - Objective Vital Signs: Vital Signs Temperature 98.3 F 12/20/16 06:48 Pulse Rate 107 H 12/20/16 06:48 Respiratory Rate 19 12/20/16 06:48 Blood Pressure 125/76 12/20/16 06:48 O2 Sat by Pulse Oximetry (%) 94 L 12/19/16 20:45 Cardiovascular: Yes: S1, S2 Respiratory: Yes: On Nasal O2, Rales Gastrointestinal: Yes: Normal Bowel Sounds, Soft Labs: CBC, BMP 12/20/16 05:40 12/20/16 05:40 INR, PTT INR 1.04 (0.82-1.09) 12/18/16 18:40 Problem List - Problems (1) Pneumonia Assessment/Plan: IV ABX ID AND PULM CONSULT NEBS Code(s): J18.9 - PNEUMONIA, UNSPECIFIED ORGANISM Qualifiers: Pneumonia type: due to unspecified organism Laterality: right Lung location: lower lobe of lung Qualified Code(s): J18.1 - Lobar pneumonia, unspecified organism; J18.1 - Lobar pneumonia, unspecified organism; J18.1 - Lobar pneumonia, unspecified organism (2) COPD (chronic obstructive pulmonary disease) Assessment/Plan: NEBS OXYGEN Code(s): J44.9 - CHRONIC OBSTRUCTIVE PULMONARY DISEASE, UNSPECIFIED Qualifiers : COPD type: COPD with acute lower respiratory infection Qualified Code(s): J44.0 - Chronic obstructive pulmonary disease with acute lower respiratory infection; J44.0 - Chronic obstructive pulmonary disease with acute lower respiratory infection; J44.0 - Chronic obstructive pulmonary disease with acute lower respiratory infection; J44.0 - Chronic obstructive pulmonary disease with acute lower respiratory infection (3) Anemia Assessment/Plan: TRANSFUSE PRBC Code(s): D64.9 - ANEMIA, UNSPECIFIED Qualifiers: Anemia type: due to chronic kidney disease Chronic kidney disease stage : unspecified stage Qualified Code(s): N18.9 - Chronic kidney disease, unspecified; N18.9 - Chronic kidney disease, unspecified; D63.1 - Anemia in chronic kidney disease; D63.1 - Anemia in chronic kidney disease (4) Renal insufficiency Assessment/Plan: MONITOR DC IVF Code(s): N28.9 - DISORDER OF KIDNEY AND URETER, UNSPECIFIED
[2016-12-20] MEDS ORDERED: PT OWN MED DRAWER 7, Y5N ONE ×2 (09:53→21:13)
[2016-12-20] MEDS: ASCORBIC ACID 500 MG TABLET (FP) PO SCH (09:59)
[2016-12-20] MEDS: CHOLECALCIFEROL (VITAMIN D3) 1,000 UNIT TABLET (FP) PO SCH (09:59)
[2016-12-20] MEDS: CARVEDILOL 6.25 MG TABLET (FP) PO SCH ×2 (09:59→21:16)
[2016-12-20] MEDS: CALCIUM (OYSTER SHELL) 500 MG TABLET (FP) PO SCH ×2 (09:59→21:16)
[2016-12-20] MEDS: GABAPENTIN 100 MG CAPSULE (FP) PO SCH (09:59)
[2016-12-20] MEDS: CITALOPRAM HYDROBROMIDE 20 MG TABLET (FP) PO SCH (09:59)
[2016-12-20] MEDS: FERROUS SO4 325 MG TABLET (FP) PO SCH (10:00)
[2016-12-20] MEDS: HEPARIN NA (PORCINE) 5,000 UNITS/ML 1ML VIAL SQ SCH ×2 (10:06→21:16)
[2016-12-20] MEDS ORDERED: FUROSEMIDE 40 MG/4 ML INJECTABLE VIAL IVPUSH ONE ×2 (10:15→18:15)
[2016-12-20] MEDS: AZITHROMYCIN IVPB 250 MG in DEXTROSE 5%-WATER - 250 ML IVPB SCH (12:57)
--- NOTE | 2016-12-20 14:15 | PN ---
Progress Note (short form) - Note Progress Note: alert complains of cough Vital Signs Period Temp Pulse Resp BP Sys/Kennedy Pulse Ox Last 24 Hr 98 F-98.7 F 80-107 - 99-125/55-76 94 cor-rrr lungs decreased at right base abd soft,nt ext no edema CBC, BMP 12/20/16 05:40 12/20/16 05:40 Microbiology 12/18/16 18:41 Urine - Urine - Catheterized Urine Culture - Preliminary Lactose Fermenting Neg Bacilli 12/18/16 18:40 Blood - Peripheral Venous Blood Culture - Preliminary NO GROWTH OBTAINED AFTER 24 HOURS, INCUBATION TO CONTINUE FOR 4 DAYS. 12/18/16 18:40 Blood - Peripheral Venous Blood Culture - Preliminary NO GROWTH OBTAINED AFTER 24 HOURS, INCUBATION TO CONTINUE FOR 4 DAYS. 12/18/16 18:30 Nasopharyngeal Swab Influenza Types A,B Antigen (SAE) - Final 12/18/16 18:30 Nasopharyngeal Swab - Final Current Medications Acetaminophen (Tylenol -) 325 mg PO Q4H PRN PRN Reason: PAIN Stop: 12/21/16 22:55 Last Admin: 12/19/16 11:58 Dose: 325 mg Albuterol/Ipratropium (Duoneb -) 1 amp NEB QIDR [facility] Last Admin: 12/20/16 12:00 Dose: 1 amp Ascorbic Acid (Vitamin C -) 500 mg PO DAILY [facility] Last Admin: 12/20/16 09:59 Dose: 500 mg Calcium Carbonate (Os-Ced 500mg -) 1,000 mg PO BID [facility] Last Admin: 12/20/16 09:59 Dose: 1,000 mg Carvedilol (Coreg -) 6.25 mg PO BID [facility] Last Admin: 12/20/16 09:59 Dose: 6.25 mg Cholecalciferol (Vitamin D3 -) 4,000 unit PO DAILY [facility] Last Admin: 12/20/16 09:59 Dose: 4,000 unit Citalopram Hydrobromide (Celexa -) 40 mg PO DAILY [facility] Last Admin: 12/20/16 09:59 Dose: 40 mg Ferrous Sulfate (Feosol -) 325 mg PO DAILY [facility] Last Admin: 12/20/16 10:00 Dose: 325 mg Gabapentin (Neurontin -) 200 mg PO DAILY [facility] Last Admin: 12/20/16 09:59 Dose: 200 mg Guaifenesin (Mucinex -) 600 mg PO BID PRN PRN Reason: COUGH Last Admin: 12/19/16 21:31 Dose: 600 mg Heparin Sodium (Porcine) (Heparin -) 5,000 unit SQ BID [facility] Last Admin: 12/20/16 10:06 Dose: 5,000 unit Azithromycin 250 mg/ Dextrose 250 mls @ 250 mls/hr IVPB DAILY [facility] Last Admin: 12/20/16 12:57 Dose: 250 mls/hr Piperacillin/Tazobactam/Dextrose (Zosyn 2.25gm Ivpb (Premix)) 50 mls @ 100 mls/ hr IVPB Q8H-IV [facility] Last Admin: 12/20/16 09:59 Dose: 100 mls/hr Levothyroxine Sodium (Synthroid -) 44 mcg PO DAILY@0700 [facility] Last Admin: 12/20/16 06:02 Dose: 44 mcg Oxycodone HCl (Roxicodone -) 10 mg PO Q4H PRN PRN Reason: PAIN Last Admin: 12/20/16 06:03 Dose: 10 mg imp/reccd RLL pneumonia dry gangrene of the thumb-no signs of soft tissue infection COPD (home oxygen) history of lung cancer history of breast cancer ckd zosyn and zithromax to continue f/u cultures now afebrile Problem List - Problems (1) Pneumonia Code(s): J18.9 - PNEUMONIA, UNSPECIFIED ORGANISM Qualifiers: Pneumonia type: due to unspecified organism Laterality: right Lung location: lower lobe of lung Qualified Code(s): J18.1 - Lobar pneumonia, unspecified organism; J18.1 - Lobar pneumonia, unspecified organism; J18.1 - Lobar pneumonia, unspecified organism (2) Gangrene of thumb Code(s): I96 - GANGR[place], NOT ELSEWHERE CLASSIFIED (3) COPD (chronic obstructive pulmonary disease) Code(s): J44.9 - CHRONIC OBSTRUCTIVE PULMONARY DISEASE, UNSPECIFIED Qualifiers : COPD type: COPD with acute lower respiratory infection Qualified Code(s): J44.0 - Chronic obstructive pulmonary disease with acute lower respiratory infection; J44.0 - Chronic obstructive pulmonary disease with acute lower respiratory infection; J44.0 - Chronic obstructive pulmonary disease with acute lower respiratory infection; J44.0 - Chronic obstructive pulmonary disease with acute lower respiratory infection (4) CKD (chronic kidney disease) Code(s): N18.9 - CHRONIC KIDNEY DISEASE, UNSPECIFIED
--- NOTE | 2016-12-20 16:28 | PN ---
Progress Note (short form) - Note Progress Note: PULMONARY LOW GRADE TEMPS CHART REVIEWED RESTING COMFORTABLE ANICTERIC DIMINISHED SOUNDS RIGHT BASE S12 BS+ NO EDEMA LABS/MEDS/NOTES/IMAGING REVIEWED RIGHT LOWER LOBE PNEUMONIA SMALL CELL LUNG CA /CAD/PCI STENT/HTN/HPL COPD/PUL HTN RI THYROID DISEASE ANTIBIOTICS/O2/NEBS/ WILL FOLLOW Francois ROBERTS MD
[2016-12-20] MEDS: guaiFENesin 600 MG TABLET.ER (FP) PO PRN (21:28)
[2016-12-20] MEDS: ACETAMINOPHEN 325 MG TABLET (FP) PO PRN (21:28)
[2016-12-21] MEDS: ALBUTEROL SO4 2.5/IPRATROPIUM 0.5 INH SOL 3 ML VIAL.NEB. NEB SCH ×4 (00:04→18:33)
[2016-12-21] MEDS: PIPERACILLIN/TAZOB 2.25 GM 50 ML IVPB SCH ×3 (01:08→17:41)
[2016-12-21] MEDS: LEVOTHYROXINE NA 88 MCG TABLET (FP) PO SCH (06:10)
[2016-12-21] MEDS: oxyCODONE HCL 5 MG TABLET PO PRN ×3 (06:10→20:18)
[2016-12-21] MEDS: ACETAMINOPHEN 325 MG TABLET (FP) PO PRN ×3 (06:10→20:18)
[2016-12-21 07:44] LABS: BASOPHIL 0.5 % (0-2.0); EOSINOPHIL 3.6 % (0-4.5); MCH 28.7 pg (25.7-33.7); MCHC 33.5 g/dl (32.0-36.0); MEAN CELL VOLUME 85.6 fl (80-96); MEAN PLT VOLUME 6.5 fl (7.5-11.1); NEUTROPHILS 78.6 % (42.8-82.8); PLATELET COUNT 358 K/MM3 (134-434); RDW 14.4 % (11.6-15.6); WHITE BLOOD COUNT 14.1 K/mm3 (4.0-10.0)
[2016-12-21 08:12] LABS: ALBUMIN 1.8 g/dl (3.4-5.0); ALK PHOS 72 U/L (45-117); ANION GAP 11 (8-16); BILIRUBIN,TOTAL 0.8 mg/dL (0.2-1.0); CALCIUM 9.3 mg/dL (8.5-10.1); CO2 23 mmol/L (21-32); GLUCOSE,RANDOM 79 mg/dL (74-106); SGOT/AST 63 U/L (15-37); SGPT/ALT 56 U/L (12-78); TOT PROT 6.2 g/dl (6.4-8.2)
--- NOTE | 2016-12-21 09:27 | PN ---
Progress Note, Physician History of Present Illness: FEELS BETTER - Current Medication List Current Medications: Active Medications Acetaminophen (Tylenol -) 325 mg PO Q4H PRN PRN Reason: PAIN Stop: 12/21/16 22:55 Last Admin: 12/21/16 06:10 Dose: 325 mg Albuterol/Ipratropium (Duoneb -) 1 amp NEB QIDR [facility] Last Admin: 12/21/16 06:58 Dose: 1 amp Ascorbic Acid (Vitamin C -) 500 mg PO DAILY [facility] Last Admin: 12/20/16 09:59 Dose: 500 mg Calcium Carbonate (Os-Ced 500mg -) 1,000 mg PO BID [facility] Last Admin: 12/20/16 21:16 Dose: 1,000 mg Carvedilol (Coreg -) 6.25 mg PO BID [facility] Last Admin: 12/20/16 21:16 Dose: 6.25 mg Cholecalciferol (Vitamin D3 -) 4,000 unit PO DAILY [facility] Last Admin: 12/20/16 09:59 Dose: 4,000 unit Citalopram Hydrobromide (Celexa -) 40 mg PO DAILY [facility] Last Admin: 12/20/16 09:59 Dose: 40 mg Ferrous Sulfate (Feosol -) 325 mg PO DAILY [facility] Last Admin: 12/20/16 10:00 Dose: 325 mg Gabapentin (Neurontin -) 200 mg PO DAILY [facility] Last Admin: 12/20/16 09:59 Dose: 200 mg Guaifenesin (Mucinex -) 600 mg PO BID PRN PRN Reason: COUGH Last Admin: 12/20/16 21:28 Dose: 600 mg Heparin Sodium (Porcine) (Heparin -) 5,000 unit SQ BID [facility] Last Admin: 12/20/16 21:16 Dose: 5,000 unit Azithromycin 250 mg/ Dextrose 250 mls @ 250 mls/hr IVPB DAILY [facility] Last Admin: 12/20/16 12:57 Dose: 250 mls/hr Piperacillin/Tazobactam/Dextrose (Zosyn 2.25gm Ivpb (Premix)) 50 mls @ 100 mls/ hr IVPB Q8H-IV [facility] Last Admin: 12/21/16 01:08 Dose: 100 mls/hr Levothyroxine Sodium (Synthroid -) 44 mcg PO DAILY@0700 [facility] Last Admin: 12/21/16 06:10 Dose: 44 mcg Oxycodone HCl (Roxicodone -) 10 mg PO Q4H PRN PRN Reason: PAIN Last Admin: 12/21/16 06:10 Dose: 10 mg - Objective Vital Signs: Vital Signs Temperature 98.1 F 12/21/16 06:00 Pulse Rate 69 12/21/16 06:00 Respiratory Rate 18 12/21/16 06:00 Blood Pressure 122/65 12/21/16 06:00 O2 Sat by Pulse Oximetry (%) 95 12/20/16 21:00 Cardiovascular: Yes: S1, S2 Respiratory: Yes: Rales (at the bases) Gastrointestinal: Yes: Normal Bowel Sounds, Soft Labs: CBC, BMP 12/21/16 06:25 12/21/16 06:25 INR, PTT INR 1.04 (0.82-1.09) 12/18/16 18:40 Problem List - Problems (1) Pneumonia Assessment/Plan: IV ABX ID AND PULM CONSULT [facility] CT scan Code(s): J18.9 - PNEUMONIA, UNSPECIFIED ORGANISM Qualifiers: Pneumonia type: due to unspecified organism Laterality: right Lung location: lower lobe of lung Qualified Code(s): J18.1 - Lobar pneumonia, unspecified organism; J18.1 - Lobar pneumonia, unspecified organism; J18.1 - Lobar pneumonia, unspecified organism (2) COPD (chronic obstructive pulmonary disease) Assessment/Plan: NEBS OXYGEN Code(s): J44.9 - CHRONIC OBSTRUCTIVE PULMONARY DISEASE, UNSPECIFIED Qualifiers : COPD type: COPD with acute lower respiratory infection Qualified Code(s): J44.0 - Chronic obstructive pulmonary disease with acute lower respiratory infection; J44.0 - Chronic obstructive pulmonary disease with acute lower respiratory infection; J44.0 - Chronic obstructive pulmonary disease with acute lower respiratory infection; J44.0 - Chronic obstructive pulmonary disease with acute lower respiratory infection (3) Anemia Assessment/Plan: TRANSFUSE PRBC Code(s): D64.9 - ANEMIA, UNSPECIFIED Qualifiers: Anemia type: due to chronic kidney disease Chronic kidney disease stage : unspecified stage Qualified Code(s): N18.9 - Chronic kidney disease, unspecified; N18.9 - Chronic kidney disease, unspecified; D63.1 - Anemia in chronic kidney disease; D63.1 - Anemia in chronic kidney disease (4) Renal insufficiency Assessment/Plan: MONITOR DC IVF Code(s): N28.9 - DISORDER OF KIDNEY AND URETER, UNSPECIFIED
[2016-12-21] MEDS ORDERED: PT OWN MED DRAWER 7, Y5N ONE ×2 (10:18→21:06)
[2016-12-21] MEDS: CHOLECALCIFEROL (VITAMIN D3) 1,000 UNIT TABLET (FP) PO SCH (10:20)
[2016-12-21] MEDS: HEPARIN NA (PORCINE) 5,000 UNITS/ML 1ML VIAL SQ SCH ×2 (10:20→21:12)
[2016-12-21] MEDS: ASCORBIC ACID 500 MG TABLET (FP) PO SCH (10:20)
[2016-12-21] MEDS: GABAPENTIN 100 MG CAPSULE (FP) PO SCH (10:21)
[2016-12-21] MEDS: CITALOPRAM HYDROBROMIDE 20 MG TABLET (FP) PO SCH (10:21)
[2016-12-21] MEDS: FERROUS SO4 325 MG TABLET (FP) PO SCH (10:21)
[2016-12-21] MEDS: CARVEDILOL 6.25 MG TABLET (FP) PO SCH ×2 (10:21→21:12)
[2016-12-21] MEDS: CALCIUM (OYSTER SHELL) 500 MG TABLET (FP) PO SCH ×2 (10:22→21:12)
[2016-12-21] MEDS: AZITHROMYCIN IVPB 250 MG in DEXTROSE 5%-WATER - 250 ML IVPB SCH (10:30)
--- NOTE | 2016-12-21 13:09 | PN ---
Progress Note (short form) - Note Progress Note: alert oob in chair trying to eat a little lunch Vital Signs Period Temp Pulse Resp BP Sys/Kennedy Pulse Ox Last 24 Hr 98.1 F-99.4 F 69-88 18-20 120-127/65-75 95 no thrush cor-rrr lungs decresed bs at right base abd soft,nt ext no edema CBC, BMP 12/21/16 06:25 12/21/16 06:25 Microbiology 12/19/16 21:44 Sputum - Expectorated Gram Stain - Final 12/19/16 21:44 Sputum - Expectorated Sputum Culture - Preliminary Non Lactose Fermenting Gnb 12/18/16 18:41 Urine - Urine - Catheterized Urine Culture - Final Escherichia Coli 12/18/16 18:40 Blood - Peripheral Venous Blood Culture - Preliminary NO GROWTH OBTAINED AFTER 48 HOURS, INCUBATION TO CONTINUE FOR 3 DAYS. 12/18/16 18:40 Blood - Peripheral Venous Blood Culture - Preliminary NO GROWTH OBTAINED AFTER 48 HOURS, INCUBATION TO CONTINUE FOR 3 DAYS. 12/18/16 18:30 Nasopharyngeal Swab Influenza Types A,B Antigen (SAE) - Final 12/18/16 18:30 Nasopharyngeal Swab - Final Current Medications Acetaminophen (Tylenol -) 325 mg PO Q4H PRN PRN Reason: PAIN Stop: 12/21/16 22:55 Last Admin: 12/21/16 10:30 Dose: 325 mg Albuterol/Ipratropium (Duoneb -) 1 amp NEB QIDR [facility] Last Admin: 12/21/16 06:58 Dose: 1 amp Ascorbic Acid (Vitamin C -) 500 mg PO DAILY [facility] Last Admin: 12/21/16 10:20 Dose: 500 mg Calcium Carbonate (Os-Ced 500mg -) 1,000 mg PO BID [facility] Last Admin: 12/21/16 10:22 Dose: 1,000 mg Carvedilol (Coreg -) 6.25 mg PO BID [facility] Last Admin: 12/21/16 10:21 Dose: 6.25 mg Cholecalciferol (Vitamin D3 -) 4,000 unit PO DAILY [facility] Last Admin: 12/21/16 10:20 Dose: 4,000 unit Citalopram Hydrobromide (Celexa -) 40 mg PO DAILY [facility] Last Admin: 12/21/16 10:21 Dose: 40 mg Ferrous Sulfate (Feosol -) 325 mg PO DAILY [facility] Last Admin: 12/21/16 10:21 Dose: 325 mg Gabapentin (Neurontin -) 200 mg PO DAILY [facility] Last Admin: 12/21/16 10:21 Dose: 200 mg Guaifenesin (Mucinex -) 600 mg PO BID PRN PRN Reason: COUGH Last Admin: 12/20/16 21:28 Dose: 600 mg Heparin Sodium (Porcine) (Heparin -) 5,000 unit SQ BID [facility] Last Admin: 12/21/16 10:20 Dose: 5,000 unit Azithromycin 250 mg/ Dextrose 250 mls @ 250 mls/hr IVPB DAILY [facility] Last Admin: 12/21/16 10:30 Dose: 250 mls/hr Piperacillin/Tazobactam/Dextrose (Zosyn 2.25gm Ivpb (Premix)) 50 mls @ 100 mls/ hr IVPB Q8H-IV [facility] Last Admin: 12/21/16 10:30 Dose: 100 mls/hr Levothyroxine Sodium (Synthroid -) 44 mcg PO DAILY@0700 [facility] Last Admin: 12/21/16 06:10 Dose: 44 mcg Oxycodone HCl (Roxicodone -) 10 mg PO Q4H PRN PRN Reason: PAIN Last Admin: 12/21/16 10:31 Dose: 10 mg imp/reccd RLL pneumonia dry gangrene of the thumb-no signs of soft tissue infection COPD (home oxygen) history of lung cancer history of breast cancer ckd zosyn and zithromax to continue day #3 antibiotics f/u cultures wbc trending down afebrile Problem List - Problems (1) Pneumonia Code(s): J18.9 - PNEUMONIA, UNSPECIFIED ORGANISM Qualifiers: Pneumonia type: due to unspecified organism Laterality: right Lung location: lower lobe of lung Qualified Code(s): J18.1 - Lobar pneumonia, unspecified organism; J18.1 - Lobar pneumonia, unspecified organism; J18.1 - Lobar pneumonia, unspecified organism (2) Gangrene of thumb Code(s): I96 - GANGRENE, NOT ELSEWHERE CLASSIFIED (3) COPD (chronic obstructive pulmonary disease) Code(s): J44.9 - CHRONIC OBSTRUCTIVE PULMONARY DISEASE, UNSPECIFIED Qualifiers : COPD type: COPD with acute lower respiratory infection Qualified Code(s): J44.0 - Chronic obstructive pulmonary disease with acute lower respiratory infection; J44.0 - Chronic obstructive pulmonary disease with acute lower respiratory infection; J44.0 - Chronic obstructive pulmonary disease with acute lower respiratory infection; J44.0 - Chronic obstructive pulmonary disease with acute lower respiratory infection (4) CKD (chronic kidney disease) Code(s): N18.9 - CHRONIC KIDNEY DISEASE, UNSPECIFIED
--- NOTE | 2016-12-21 13:29 | PN ---
Progress Note, Physician History of Present Illness: pulmonary alert,oob-chair, feeling better,less dyspneic.pt s/p transfusion 2 units prbc - Current Medication List Current Medications: Active Medications Acetaminophen (Tylenol -) 325 mg PO Q4H PRN PRN Reason: PAIN Stop: 12/21/16 22:55 Last Admin: 12/21/16 10:30 Dose: 325 mg Albuterol/Ipratropium (Duoneb -) 1 amp NEB QIDR [facility] Last Admin: 12/21/16 06:58 Dose: 1 amp Ascorbic Acid (Vitamin C -) 500 mg PO DAILY [facility] Last Admin: 12/21/16 10:20 Dose: 500 mg Calcium Carbonate (Os-Ced 500mg -) 1,000 mg PO BID [facility] Last Admin: 12/21/16 10:22 Dose: 1,000 mg Carvedilol (Coreg -) 6.25 mg PO BID [facility] Last Admin: 12/21/16 10:21 Dose: 6.25 mg Cholecalciferol (Vitamin D3 -) 4,000 unit PO DAILY [facility] Last Admin: 12/21/16 10:20 Dose: 4,000 unit Citalopram Hydrobromide (Celexa -) 40 mg PO DAILY [facility] Last Admin: 12/21/16 10:21 Dose: 40 mg Ferrous Sulfate (Feosol -) 325 mg PO DAILY [facility] Last Admin: 12/21/16 10:21 Dose: 325 mg Gabapentin (Neurontin -) 200 mg PO DAILY [facility] Last Admin: 12/21/16 10:21 Dose: 200 mg Guaifenesin (Mucinex -) 600 mg PO BID PRN PRN Reason: COUGH Last Admin: 12/20/16 21:28 Dose: 600 mg Heparin Sodium (Porcine) (Heparin -) 5,000 unit SQ BID [facility] Last Admin: 12/21/16 10:20 Dose: 5,000 unit Azithromycin 250 mg/ Dextrose 250 mls @ 250 mls/hr IVPB DAILY [facility] Last Admin: 12/21/16 10:30 Dose: 250 mls/hr Piperacillin/Tazobactam/Dextrose (Zosyn 2.25gm Ivpb (Premix)) 50 mls @ 100 mls/ hr IVPB Q8H-IV [facility] Last Admin: 12/21/16 10:30 Dose: 100 mls/hr Levothyroxine Sodium (Synthroid -) 44 mcg PO DAILY@0700 [facility] Last Admin: 12/21/16 06:10 Dose: 44 mcg Oxycodone HCl (Roxicodone -) 10 mg PO Q4H PRN PRN Reason: PAIN Last Admin: 12/21/16 10:31 Dose: 10 mg - Objective Vital Signs: Vital Signs Temperature 98.1 F 12/21/16 06:00 Pulse Rate 69 12/21/16 06:00 Respiratory Rate 18 12/21/16 06:00 Blood Pressure 122/65 12/21/16 06:00 O2 Sat by Pulse Oximetry (%) 95 12/20/16 21:00 Constitutional: Yes: Calm, Thin Eyes: Yes: WNL HENT: Yes: WNL Neck: Yes: WNL Cardiovascular: Yes: Regular Rate and Rhythm, S1, S2 Respiratory: Yes: Diminished Gastrointestinal: Yes: Normal Bowel Sounds, Soft Extremities: Yes: WNL Edema: No Labs: CBC, BMP 12/21/16 06:25 12/21/16 06:25 INR, PTT INR 1.04 (0.82-1.09) 12/18/16 18:40 Problem List - Problems (1) Anemia Code(s): D64.9 - ANEMIA, UNSPECIFIED Qualifiers: Anemia type: due to chronic kidney disease Chronic kidney disease stage : unspecified stage Qualified Code(s): N18.9 - Chronic kidney disease, unspecified; N18.9 - Chronic kidney disease, unspecified; D63.1 - Anemia in chronic kidney disease; D63.1 - Anemia in chronic kidney disease (2) CKD (chronic kidney disease) Code(s): N18.9 - CHRONIC KIDNEY DISEASE, UNSPECIFIED (3) COPD (chronic obstructive pulmonary disease) Code(s): J44.9 - CHRONIC OBSTRUCTIVE PULMONARY DISEASE, UNSPECIFIED Qualifiers : COPD type: COPD with acute lower respiratory infection Qualified Code(s): J44.0 - Chronic obstructive pulmonary disease with acute lower respiratory infection; J44.0 - Chronic obstructive pulmonary disease with acute lower respiratory infection; J44.0 - Chronic obstructive pulmonary disease with acute lower respiratory infection; J44.0 - Chronic obstructive pulmonary disease with acute lower respiratory infection (4) Fever in adult Code(s): R50.9 - FEVER, UNSPECIFIED (5) Leukocytosis Code(s): D72.829 - ELEVATED WHITE BLOOD CELL COUNT, UNSPECIFIED Qualifiers: Leukocytosis type: unspecified Qualified Code(s): D72.829 - Elevated white blood cell count, unspecified; D72.829 - Elevated white blood cell count, unspecified (6) Pneumonia Code(s): J18.9 - PNEUMONIA, UNSPECIFIED ORGANISM Qualifiers: Pneumonia type: due to unspecified organism Laterality: right Lung location: lower lobe of lung Qualified Code(s): J18.1 - Lobar pneumonia, unspecified organism; J18.1 - Lobar pneumonia, unspecified organism; J18.1 - Lobar pneumonia, unspecified organism (7) ASHD (arteriosclerotic heart disease) Code(s): I25.10 - ATHSCL HEART DISEASE OF [place] CORONARY ARTERY W/O ANG PCTRS (8) Aortic stenosis Code(s): I35.0 - NONRHEUMATIC AORTIC (VALVE) STENOSIS Qualifiers: Cardiac valve disease etiology: nonrheumatic Qualified Code(s): I35.0 - Nonrheumatic aortic (valve) stenosis; I35.0 - Nonrheumatic aortic (valve ) stenosis (9) Breast CA Code(s): C50.919 - MALIGNANT NEOPLASM OF UNSP SITE OF UNSPECIFIED FEMALE BREAST (10) CAD (coronary artery disease) Code(s): I25.10 - ATHSCL HEART DISEASE OF [place] CORONARY ARTERY W/O ANG PCTRS Qualifiers: Coronary Disease-Associated Artery/Lesion type: [place] artery [place] vs. transplanted heart: [place] heart Associated angina: without angina Qualified Code(s): I25.10 - Atherosclerotic heart disease of [place] coronary artery without angina pectoris; I25.10 - Atherosclerotic heart disease of [place] coronary artery without angina pectoris; I25.10 - Atherosclerotic heart disease of [place] coronary artery without angina pectoris (11) Chronic hypoxemic respiratory failure Code(s): J96.11 - CHRONIC RESPIRATORY FAILURE WITH HYPOXIA (12) Cough Code(s): R05 - COUGH (13) Gangrene of thumb Code(s): I96 - GANGRENE, NOT ELSEWHERE CLASSIFIED (14) Hypothyroid Code(s): E03.9 - HYPOTHYROIDISM, UNSPECIFIED Qualifiers: Hypothyroidism type: unspecified Qualified Code(s): E03.9 - Hypothyroidism, unspecified; E03.9 - Hypothyroidism, unspecified; E03.9 - Hypothyroidism, unspecified (15) Hypoxia Code(s): R09.02 - HYPOXEMIA (16) Lung cancer Code(s): C34.90 - MALIGNANT NEOPLASM OF UNSP PART OF UNSP BRONCHUS OR LUNG Qualifiers: Lung location: unspecified part of lung (17) Right lower lobe pneumonia Code(s): J18.1 - LOBAR PNEUMONIA, UNSPECIFIED ORGANISM (18) Severe malnutrition Code(s): E43 - UNSPECIFIED SEVERE PROTEIN-CALORIE MALNUTRITION Assessment/Plan IMP RLL PNEUMONIA CHRONIC HYPOXEMIC RESPIRATORY FAILURE ADVANCED COPD LUNG CA SMALL CELL S/P CHEMO H/O BREAST CA PULMONARY HTN ASHD S/P STENT ANEMIA CKD PLAN IV ANTIBIOTICS PER ID INHALED BRONCHODILATORS O2 F/U CHEST X-RAYS TO DOCUMENT RESOLUTION OF INFILTRATES MONITOR H+H,RENAL FUNCTION DR ALVAREZ Problem List - Problems (1) Anemia Code(s): D64.9 - ANEMIA, UNSPECIFIED Qualifiers: Anemia type: due to chronic kidney disease Chronic kidney disease stage : unspecified stage Qualified Code(s): N18.9 - Chronic kidney disease, unspecified; N18.9 - Chronic kidney disease, unspecified; D63.1 - Anemia in chronic kidney disease; D63.1 - Anemia in chronic kidney disease (2) CKD (chronic kidney disease) Code(s): N18.9 - CHRONIC KIDNEY DISEASE, UNSPECIFIED (3) COPD (chronic obstructive pulmonary disease) Code(s): J44.9 - CHRONIC OBSTRUCTIVE PULMONARY DISEASE, UNSPECIFIED Qualifiers : COPD type: COPD with acute lower respiratory infection Qualified Code(s): J44.0 - Chronic obstructive pulmonary disease with acute lower respiratory infection; J44.0 - Chronic obstructive pulmonary disease with acute lower respiratory infection; J44.0 - Chronic obstructive pulmonary disease with acute lower respiratory infection; J44.0 - Chronic obstructive pulmonary disease with acute lower respiratory infection (4) Fever in adult Code(s): R50.9 - FEVER, UNSPECIFIED (5) Leukocytosis Code(s): D72.829 - ELEVATED WHITE BLOOD CELL COUNT, UNSPECIFIED Qualifiers: Leukocytosis type: unspecified Qualified Code(s): D72.829 - Elevated white blood cell count, unspecified; D72.829 - Elevated white blood cell count, unspecified (6) Pneumonia Code(s): J18.9 - PNEUMONIA, UNSPECIFIED ORGANISM Qualifiers: Pneumonia type: due to unspecified organism Laterality: right Lung location: lower lobe of lung Qualified Code(s): J18.1 - Lobar pneumonia, unspecified organism; J18.1 - Lobar pneumonia, unspecified organism; J18.1 - Lobar pneumonia, unspecified organism (7) ASHD (arteriosclerotic heart disease) Code(s): I25.10 - ATHSCL HEART DISEASE OF [place] CORONARY ARTERY W/O ANG PCTRS (8) Aortic stenosis Code(s): I35.0 - NONRHEUMATIC AORTIC (VALVE) STENOSIS Qualifiers: Cardiac valve disease etiology: nonrheumatic Qualified Code(s): I35.0 - Nonrheumatic aortic (valve) stenosis; I35.0 - Nonrheumatic aortic (valve ) stenosis (9) Breast CA Code(s): C50.919 - MALIGNANT NEOPLASM OF UNSP SITE OF UNSPECIFIED FEMALE BREAST (10) CAD (coronary artery disease) Code(s): I25.10 - ATHSCL HEART DISEASE OF [place] CORONARY ARTERY W/O ANG PCTRS Qualifiers: Coronary Disease-Associated Artery/Lesion type: [place] artery [place] vs. transplanted heart: [place] heart Associated angina: without angina Qualified Code(s): I25.10 - Atherosclerotic heart disease of [place] coronary artery without angina pectoris; I25.10 - Atherosclerotic heart disease of [place] coronary artery without angina pectoris; I25.10 - Atherosclerotic heart disease of [place] coronary artery without angina pectoris (11) Chronic hypoxemic respiratory failure Code(s): J96.11 - CHRONIC RESPIRATORY FAILURE WITH HYPOXIA (12) Cough Code(s): R05 - COUGH (13) Gangrene of thumb Code(s): I96 - GANGRENE, NOT ELSEWHERE CLASSIFIED (14) Hypothyroid Code(s): E03.9 - HYPOTHYROIDISM, UNSPECIFIED Qualifiers: Hypothyroidism type: unspecified Qualified Code(s): E03.9 - Hypothyroidism, unspecified; E03.9 - Hypothyroidism, unspecified; E03.9 - Hypothyroidism, unspecified (15) Hypoxia Code(s): R09.02 - HYPOXEMIA (16) Lung cancer Code(s): C34.90 - MALIGNANT NEOPLASM OF UNSP PART OF UNSP BRONCHUS OR LUNG Qualifiers: Lung location: unspecified part of lung (17) Right lower lobe pneumonia Code(s): J18.1 - LOBAR PNEUMONIA, UNSPECIFIED ORGANISM (18) Severe malnutrition Code(s): E43 - UNSPECIFIED SEVERE PROTEIN-CALORIE MALNUTRITION
[2016-12-21] MEDS: guaiFENesin 600 MG TABLET.ER (FP) PO PRN (21:12)
[2016-12-22] MEDS: ALBUTEROL SO4 2.5/IPRATROPIUM 0.5 INH SOL 3 ML VIAL.NEB. NEB SCH ×4 (00:10→18:44)
[2016-12-22] MEDS: PIPERACILLIN/TAZOB 2.25 GM 50 ML IVPB SCH ×3 (01:15→17:59)
[2016-12-22] MEDS: LEVOTHYROXINE NA 88 MCG TABLET (FP) PO SCH (06:10)
[2016-12-22] MEDS: oxyCODONE HCL 5 MG TABLET PO PRN ×2 (06:14→17:58)
--- NOTE | 2016-12-22 09:59 | PN ---
Progress Note, Physician Chief Complaint: patient seen and examined going for CT chest coughing in bed awake alert - Current Medication List Current Medications: Active Medications Albuterol/Ipratropium (Duoneb -) 1 amp NEB QIDR [facility] Last Admin: 12/22/16 06:20 Dose: 1 amp Ascorbic Acid (Vitamin C -) 500 mg PO DAILY [facility] Last Admin: 12/21/16 10:20 Dose: 500 mg Calcium Carbonate (Os-Ced 500mg -) 1,000 mg PO BID [facility] Last Admin: 12/21/16 21:12 Dose: 1,000 mg Carvedilol (Coreg -) 6.25 mg PO BID [facility] Last Admin: 12/21/16 21:12 Dose: 6.25 mg Cholecalciferol (Vitamin D3 -) 4,000 unit PO DAILY [facility] Last Admin: 12/21/16 10:20 Dose: 4,000 unit Citalopram Hydrobromide (Celexa -) 40 mg PO DAILY [facility] Last Admin: 12/21/16 10:21 Dose: 40 mg Ferrous Sulfate (Feosol -) 325 mg PO DAILY [facility] Last Admin: 12/21/16 10:21 Dose: 325 mg Gabapentin (Neurontin -) 200 mg PO DAILY [facility] Last Admin: 12/21/16 10:21 Dose: 200 mg Guaifenesin (Mucinex -) 600 mg PO BID PRN PRN Reason: COUGH Last Admin: 12/21/16 21:12 Dose: 600 mg Heparin Sodium (Porcine) (Heparin -) 5,000 unit SQ BID [facility] Last Admin: 12/21/16 21:12 Dose: 5,000 unit Azithromycin 250 mg/ Dextrose 250 mls @ 250 mls/hr IVPB DAILY [facility] Last Admin: 12/21/16 10:30 Dose: 250 mls/hr Piperacillin/Tazobactam/Dextrose (Zosyn 2.25gm Ivpb (Premix)) 50 mls @ 100 mls/ hr IVPB Q8H-IV [facility] Last Admin: 12/22/16 01:15 Dose: 100 mls/hr Levothyroxine Sodium (Synthroid -) 44 mcg PO DAILY@0700 [facility] Last Admin: 12/22/16 06:10 Dose: 44 mcg Oxycodone HCl (Roxicodone -) 10 mg PO Q4H PRN PRN Reason: PAIN Last Admin: 12/22/16 06:14 Dose: 10 mg - Objective Vital Signs: Vital Signs Temperature 98.6 F 12/22/16 06:25 Pulse Rate 80 12/22/16 06:25 Respiratory Rate 18 12/22/16 06:25 Blood Pressure 121/67 12/22/16 06:25 O2 Sat by Pulse Oximetry (%) 96 12/21/16 21:00 Constitutional: Yes: Moderate Distress, Thin Cardiovascular: Yes: Regular Rate and Rhythm, S1, S2 Respiratory: Yes: Diminished (on Right side) Gastrointestinal: Yes: Normal Bowel Sounds, Soft Edema: No Neurological: Yes: Alert, Oriented Labs: CBC, BMP 12/21/16 06:25 12/21/16 06:25 INR, PTT INR 1.04 (0.82-1.09) 12/18/16 18:40 Problem List - Problems (1) Anemia Assessment/Plan: got prbc h/h improved iron panel noted low iron saturation-on po iron and vitamin C will get heme on board iv venofer if ok with heme Code(s): D64.9 - ANEMIA, UNSPECIFIED Qualifiers: Anemia type: due to chronic kidney disease Chronic kidney disease stage : unspecified stage Qualified Code(s): N18.9 - Chronic kidney disease, unspecified; N18.9 - Chronic kidney disease, unspecified; D63.1 - Anemia in chronic kidney disease; D63.1 - Anemia in chronic kidney disease (2) CKD (chronic kidney disease) Assessment/Plan: creatinine seems baseline Code(s): N18.9 - CHRONIC KIDNEY DISEASE, UNSPECIFIED (3) Pneumonia Assessment/Plan: on zithromax and zosyn Microbiology 12/19/16 21:44 Sputum - Expectorated Gram Stain - Final 12/19/16 21:44 Sputum - Expectorated Sputum Culture - Final Pseudomonas Aeruginosa to get chest CT today Code(s): J18.9 - PNEUMONIA, UNSPECIFIED ORGANISM Qualifiers: Pneumonia type: due to unspecified organism Laterality: right Lung location: lower lobe of lung Qualified Code(s): J18.1 - Lobar pneumonia, unspecified organism; J18.1 - Lobar pneumonia, unspecified organism; J18.1 - Lobar pneumonia, unspecified organism (4) Urinary tract infection Assessment/Plan: Microbiology 12/18/16 18:41 Urine - Urine - Catheterized Urine Culture - Final Escherichia Coli sensitve to zosyn Code(s): N39.0 - URINARY TRACT INFECTION, SITE NOT SPECIFIED Qualifiers: Urinary tract infection type: site unspecified Hematuria presence: without hematuria Qualified Code(s): N39.0 - Urinary tract infection, site not specified; N39.0 - Urinary tract infection, site not specified; R31.9 - Hematuria, unspecified; R31.9 - Hematuria, unspecified (5) Hypothyroid Assessment/Plan: check tsh and free t4 on synthroid Code(s): E03.9 - HYPOTHYROIDISM, UNSPECIFIED Qualifiers: Hypothyroidism type: unspecified Qualified Code(s): E03.9 - Hypothyroidism, unspecified; E03.9 - Hypothyroidism, unspecified; E03.9 - Hypothyroidism, unspecified
[2016-12-22] MEDS ORDERED: PT OWN MED DRAWER 7, Y5N ONE ×2 (11:01→20:59)
[2016-12-22] MEDS: CALCIUM (OYSTER SHELL) 500 MG TABLET (FP) PO SCH ×2 (11:02→21:03)
[2016-12-22] MEDS: CITALOPRAM HYDROBROMIDE 20 MG TABLET (FP) PO SCH (11:02)
[2016-12-22] MEDS: HEPARIN NA (PORCINE) 5,000 UNITS/ML 1ML VIAL SQ SCH ×2 (11:03→21:03)
[2016-12-22] MEDS: CHOLECALCIFEROL (VITAMIN D3) 1,000 UNIT TABLET (FP) PO SCH (11:03)
[2016-12-22] MEDS: GABAPENTIN 100 MG CAPSULE (FP) PO SCH (11:03)
[2016-12-22] MEDS: FERROUS SO4 325 MG TABLET (FP) PO SCH (11:03)
[2016-12-22] MEDS: ASCORBIC ACID 500 MG TABLET (FP) PO SCH (11:03)
[2016-12-22] MEDS: CARVEDILOL 6.25 MG TABLET (FP) PO SCH ×2 (11:03→21:03)
[2016-12-22] MEDS: AZITHROMYCIN IVPB 250 MG in DEXTROSE 5%-WATER - 250 ML IVPB SCH (11:32)
--- NOTE | 2016-12-22 13:05 | PN ---
Progress Note, Physician History of Present Illness: PULMONARY ALERT,FEELING BETTER,LESS DYSPNEIC - Current Medication List Current Medications: Active Medications Albuterol/Ipratropium (Duoneb -) 1 amp NEB QIDR [facility] Last Admin: 12/22/16 11:19 Dose: 1 amp Ascorbic Acid (Vitamin C -) 500 mg PO DAILY [facility] Last Admin: 12/22/16 11:03 Dose: 500 mg Calcium Carbonate (Os-Ced 500mg -) 1,000 mg PO BID [facility] Last Admin: 12/22/16 11:02 Dose: 1,000 mg Carvedilol (Coreg -) 6.25 mg PO BID [facility] Last Admin: 12/22/16 11:03 Dose: 6.25 mg Cholecalciferol (Vitamin D3 -) 4,000 unit PO DAILY [facility] Last Admin: 12/22/16 11:03 Dose: 4,000 unit Citalopram Hydrobromide (Celexa -) 40 mg PO DAILY [facility] Last Admin: 12/22/16 11:02 Dose: 40 mg Ferrous Sulfate (Feosol -) 325 mg PO DAILY [facility] Last Admin: 12/22/16 11:03 Dose: 325 mg Gabapentin (Neurontin -) 200 mg PO DAILY [facility] Last Admin: 12/22/16 11:03 Dose: 200 mg Guaifenesin (Mucinex -) 600 mg PO BID PRN PRN Reason: COUGH Last Admin: 12/21/16 21:12 Dose: 600 mg Heparin Sodium (Porcine) (Heparin -) 5,000 unit SQ BID [facility] Last Admin: 12/22/16 11:03 Dose: 5,000 unit Azithromycin 250 mg/ Dextrose 250 mls @ 250 mls/hr IVPB DAILY [facility] Last Admin: 12/22/16 11:32 Dose: 250 mls/hr Piperacillin/Tazobactam/Dextrose (Zosyn 2.25gm Ivpb (Premix)) 50 mls @ 100 mls/ hr IVPB Q8H-IV [facility] Last Admin: 12/22/16 11:02 Dose: 100 mls/hr Levothyroxine Sodium (Synthroid -) 44 mcg PO DAILY@0700 [facility] Last Admin: 12/22/16 06:10 Dose: 44 mcg Oxycodone HCl (Roxicodone -) 10 mg PO Q4H PRN PRN Reason: PAIN Last Admin: 12/22/16 06:14 Dose: 10 mg - Objective Vital Signs: Vital Signs Temperature 98.6 F 12/22/16 06:25 Pulse Rate 91 H 12/22/16 10:00 Respiratory Rate 20 12/22/16 10:00 Blood Pressure 119/58 12/22/16 10:00 O2 Sat by Pulse Oximetry (%) 95 12/22/16 09:00 Constitutional: Yes: Calm, Thin Eyes: Yes: WNL HENT: Yes: WNL Neck: Yes: WNL Cardiovascular: Yes: Regular Rate and Rhythm Respiratory: Yes: Diminished Gastrointestinal: Yes: Normal Bowel Sounds, Soft Extremities: Yes: WNL (FEW SCATTERED WHEEZES) Edema: No Labs: CBC, BMP 12/21/16 06:25 12/21/16 06:25 INR, PTT INR 1.04 (0.82-1.09) 12/18/16 18:40 Problem List - Problems (1) Anemia Code(s): D64.9 - ANEMIA, UNSPECIFIED Qualifiers: Anemia type: due to chronic kidney disease Chronic kidney disease stage : unspecified stage Qualified Code(s): N18.9 - Chronic kidney disease, unspecified; N18.9 - Chronic kidney disease, unspecified; D63.1 - Anemia in chronic kidney disease; D63.1 - Anemia in chronic kidney disease (2) CKD (chronic kidney disease) Code(s): N18.9 - CHRONIC KIDNEY DISEASE, UNSPECIFIED (3) COPD (chronic obstructive pulmonary disease) Code(s): J44.9 - CHRONIC OBSTRUCTIVE PULMONARY DISEASE, UNSPECIFIED Qualifiers : COPD type: COPD with acute lower respiratory infection Qualified Code(s): J44.0 - Chronic obstructive pulmonary disease with acute lower respiratory infection; J44.0 - Chronic obstructive pulmonary disease with acute lower respiratory infection; J44.0 - Chronic obstructive pulmonary disease with acute lower respiratory infection; J44.0 - Chronic obstructive pulmonary disease with acute lower respiratory infection (4) Fever in adult Code(s): R50.9 - FEVER, UNSPECIFIED (5) Leukocytosis Code(s): D72.829 - ELEVATED WHITE BLOOD CELL COUNT, UNSPECIFIED Qualifiers: Leukocytosis type: unspecified Qualified Code(s): D72.829 - Elevated white blood cell count, unspecified; D72.829 - Elevated white blood cell count, unspecified (6) Pneumonia Code(s): J18.9 - PNEUMONIA, UNSPECIFIED ORGANISM Qualifiers: Pneumonia type: due to unspecified organism Laterality: right Lung location: lower lobe of lung Qualified Code(s): J18.1 - Lobar pneumonia, unspecified organism; J18.1 - Lobar pneumonia, unspecified organism; J18.1 - Lobar pneumonia, unspecified organism (7) ASHD (arteriosclerotic heart disease) Code(s): I25.10 - ATHSCL HEART DISEASE OF [place] CORONARY ARTERY W/O ANG PCTRS (8) Aortic stenosis Code(s): I35.0 - NONRHEUMATIC AORTIC (VALVE) STENOSIS Qualifiers: Cardiac valve disease etiology: nonrheumatic Qualified Code(s): I35.0 - Nonrheumatic aortic (valve) stenosis; I35.0 - Nonrheumatic aortic (valve ) stenosis (9) Breast CA Code(s): C50.919 - MALIGNANT NEOPLASM OF UNSP SITE OF UNSPECIFIED FEMALE BREAST (10) CAD (coronary artery disease) Code(s): I25.10 - ATHSCL HEART DISEASE OF [place] CORONARY ARTERY W/O ANG PCTRS Qualifiers: Coronary Disease-Associated Artery/Lesion type: [place] artery [place] vs. transplanted heart: [place] heart Associated angina: without angina Qualified Code(s): I25.10 - Atherosclerotic heart disease of [place] coronary artery without angina pectoris; I25.10 - Atherosclerotic heart disease of [place] coronary artery without angina pectoris; I25.10 - Atherosclerotic heart disease of [place] coronary artery without angina pectoris (11) Chronic hypoxemic respiratory failure Code(s): J96.11 - CHRONIC RESPIRATORY FAILURE WITH HYPOXIA (12) Cough Code(s): R05 - COUGH (13) Gangrene of thumb Code(s): I96 - GANGRENE, NOT ELSEWHERE CLASSIFIED (14) Hypothyroid Code(s): E03.9 - HYPOTHYROIDISM, UNSPECIFIED Qualifiers: Hypothyroidism type: unspecified Qualified Code(s): E03.9 - Hypothyroidism, unspecified; E03.9 - Hypothyroidism, unspecified; E03.9 - Hypothyroidism, unspecified (15) Hypoxia Code(s): R09.02 - HYPOXEMIA (16) Lung cancer Code(s): C34.90 - MALIGNANT NEOPLASM OF UNSP PART OF UNSP BRONCHUS OR LUNG Qualifiers: Lung location: unspecified part of lung (17) Right lower lobe pneumonia Code(s): J18.1 - LOBAR PNEUMONIA, UNSPECIFIED ORGANISM (18) Severe malnutrition Code(s): E43 - UNSPECIFIED SEVERE PROTEIN-CALORIE MALNUTRITION Assessment/Plan IMP RLL PNEUMONIA CHRONIC HYPOXEMIC RESPIRATORY FAILURE ADVANCED COPD LUNG CA SMALL CELL S/P CHEMO H/O BREAST CA PULMONARY HTN ASHD S/P STENT ANEMIA CKD PLAN IV ANTIBIOTICS PER ID INHALED BRONCHODILATORS O2 F/U CHEST X-RAYS TO DOCUMENT RESOLUTION OF INFILTRATES MONITOR H+H,RENAL FUNCTION DR ALVAREZ Problem List - Problems (1) Anemia Code(s): D64.9 - ANEMIA, UNSPECIFIED Qualifiers: Anemia type: due to chronic kidney disease Chronic kidney disease stage : unspecified stage Qualified Code(s): N18.9 - Chronic kidney disease, unspecified; N18.9 - Chronic kidney disease, unspecified; D63.1 - Anemia in chronic kidney disease; D63.1 - Anemia in chronic kidney disease (2) CKD (chronic kidney disease) Code(s): N18.9 - CHRONIC KIDNEY DISEASE, UNSPECIFIED (3) COPD (chronic obstructive pulmonary disease) Code(s): J44.9 - CHRONIC OBSTRUCTIVE PULMONARY DISEASE, UNSPECIFIED Qualifiers : COPD type: COPD with acute lower respiratory infection Qualified Code(s): J44.0 - Chronic obstructive pulmonary disease with acute lower respiratory infection; J44.0 - Chronic obstructive pulmonary disease with acute lower respiratory infection; J44.0 - Chronic obstructive pulmonary disease with acute lower respiratory infection; J44.0 - Chronic obstructive pulmonary disease with acute lower respiratory infection (4) Fever in adult Code(s): R50.9 - FEVER, UNSPECIFIED (5) Leukocytosis Code(s): D72.829 - ELEVATED WHITE BLOOD CELL COUNT, UNSPECIFIED Qualifiers: Leukocytosis type: unspecified Qualified Code(s): D72.829 - Elevated white blood cell count, unspecified; D72.829 - Elevated white blood cell count, unspecified (6) Pneumonia Code(s): J18.9 - PNEUMONIA, UNSPECIFIED ORGANISM Qualifiers: Pneumonia type: due to unspecified organism Laterality: right Lung location: lower lobe of lung Qualified Code(s): J18.1 - Lobar pneumonia, unspecified organism; J18.1 - Lobar pneumonia, unspecified organism; J18.1 - Lobar pneumonia, unspecified organism (7) ASHD (arteriosclerotic heart disease) Code(s): I25.10 - ATHSCL HEART DISEASE OF [place] CORONARY ARTERY W/O ANG PCTRS (8) Aortic stenosis Code(s): I35.0 - NONRHEUMATIC AORTIC (VALVE) STENOSIS Qualifiers: Cardiac valve disease etiology: nonrheumatic Qualified Code(s): I35.0 - Nonrheumatic aortic (valve) stenosis; I35.0 - Nonrheumatic aortic (valve ) stenosis (9) Breast CA Code(s): C50.919 - MALIGNANT NEOPLASM OF UNSP SITE OF UNSPECIFIED FEMALE BREAST (10) CAD (coronary artery disease) Code(s): I25.10 - ATHSCL HEART DISEASE OF [place] CORONARY ARTERY W/O ANG PCTRS Qualifiers: Coronary Disease-Associated Artery/Lesion type: [place] artery [place] vs. transplanted heart: [place] heart Associated angina: without angina Qualified Code(s): I25.10 - Atherosclerotic heart disease of [place] coronary artery without angina pectoris; I25.10 - Atherosclerotic heart disease of [place] coronary artery without angina pectoris; I25.10 - Atherosclerotic heart disease of [place] coronary artery without angina pectoris (11) Chronic hypoxemic respiratory failure Code(s): J96.11 - CHRONIC RESPIRATORY FAILURE WITH HYPOXIA (12) Cough Code(s): R05 - COUGH (13) Gangrene of thumb Code(s): I96 - GANGRENE, NOT ELSEWHERE CLASSIFIED (14) Hypothyroid Code(s): E03.9 - HYPOTHYROIDISM, UNSPECIFIED Qualifiers: Hypothyroidism type: unspecified Qualified Code(s): E03.9 - Hypothyroidism, unspecified; E03.9 - Hypothyroidism, unspecified; E03.9 - Hypothyroidism, unspecified (15) Hypoxia Code(s): R09.02 - HYPOXEMIA (16) Lung cancer Code(s): C34.90 - MALIGNANT NEOPLASM OF UNSP PART OF UNSP BRONCHUS OR LUNG Qualifiers: Lung location: unspecified part of lung (17) Right lower lobe pneumonia Code(s): J18.1 - LOBAR PNEUMONIA, UNSPECIFIED ORGANISM (18) Severe malnutrition Code(s): E43 - UNSPECIFIED SEVERE PROTEIN-CALORIE MALNUTRITION
[2016-12-22 14:58] LABS: FREE T4 1.94 ng/dl (0.76-1.46); THYROID STIMULATING HORMONE 1.55 uIU/ml (0.358-3.74)
[2016-12-22] MEDS: guaiFENesin 600 MG TABLET.ER (FP) PO PRN (21:03)
--- NOTE | 2016-12-22 22:40 | CONSULT ---
Consult - text type - Consultation Consultation Note: The patient is a 76 year old female with a significant past medical history of HTN, HLD, mitral insufficiency, COPD, lung CA (on home O2), R breast CA, renal insufficiency, hypothyroidism who presents to the ED, via EMS, for 4 days of generalized weakness and cough. Denies fever. Denies chest pain or palpitations. Denies nausea, vomiting, or diarrhea. Denies any other symptoms. Reports cough and shortness of breath - Past Medical History Anemia: Yes Cancer: Yes (Rt breast CA and lung CA - 2 primaries) Cardiac Disorders: Yes (ASHD S/P STENT) COPD: Yes (O2 3L NC PRN.) Disorders: Yes (uti,renal insuff.) HTN: Yes Thyroid Disease: Yes (hypothyroidism, MULTIPLE NODULES) - Surgical History Cardiac Surgery: Yes (STENT) Lung Surgery: eurologic Surgery: [place] (LUNG BX, LUNG CA) Orthopedic Surgery: Yes (CERVICAL, LUMBAR LAMINECTOMIES) - Suicide/Smoking/Psychosocial Hx Smoking Status: Yes Smoking History: Smoker current status UNK Allergies/Adverse Reactions: Allergies Allergy/AdvReac Type Severity Reaction Status Date / Time No Known Allergies Allergy Verified 12/18/16 18:56 Home Medications: Ambulatory Orders Citalopram Hydrobromide [Celexa -] 40 mg PO DAILY tablet 08/05/16 Ascorbate Calcium [Vitamin C] 500 mg PO DAILY 12/18/16 Calcium Carbonate [Calcium] 1,000 mg PO BID 12/18/16 Carvedilol [Coreg -] 6.25 mg PO BID 12/18/16 Cholecalciferol (Vitamin D3) [Vitamin D3] 4,000 unit PO DAILY 12/18/16 Gabapentin 200 mg PO DAILY 12/18/16 Guaifenesin [Mucinex -] 600 mg PO BID PRN 12/18/16 Hydrocodone/Acetaminophen [Hydrocodon-Acetaminophn 10-325] 1 each PO Q4H PRN Iron 65 mg PO DAILY 12/18/16 Levothyroxine [Synthroid -] 44 mcg PO DAILY 12/18/16 - Vital Signs AFVSS cachectic Cor: RSR, No murmurs, No gallops Lungs: decreased at bases Abd: Soft, Normal bowel sounds, No organomegaly Ext:No significant edema Skin: No rashes, Integument intact A/P 76 y/o patient with h/o breast Cancer --treated by --originally 8 yrs. ago s/p lumpectomy/RT/tamoxifen x 5yrs. ?? recurrence vs lung primary ---?? mediastinum --s/p chemo /RT in 2013 was on [place] /cis for 8 cycles then switched to gemzaar --bolton s been off therapy Has cisplatin induced neuropathy/CKD Bone scan last admission showed no e/o disease Now withLL pneumonia. CT dalia-RLL atelectasis/effusion, LLL PNA/effusion, mild mediastinal adenopathy will need PET-CT outpatient Anemia---mi=ultifactorial gi bleed?--stool occult + EGD 09/12--erosions Iron studies s/o low iron satc/w iron deficiency + high ferriti c/w anemia of chronic dsease/acute inflammation CKD Could consider IV iron replacement given low iron sat ? colonosopy/gi eval ? procrit per renal protocol once iron repleted
[2016-12-23] MEDS: ALBUTEROL SO4 2.5/IPRATROPIUM 0.5 INH SOL 3 ML VIAL.NEB. NEB SCH ×4 (00:31→17:05)
[2016-12-23] MEDS: PIPERACILLIN/TAZOB 2.25 GM 50 ML IVPB SCH ×3 (01:55→17:03)
[2016-12-23] MEDS: LEVOTHYROXINE NA 88 MCG TABLET (FP) PO SCH (06:12)
[2016-12-23] MEDS ORDERED: IRON SUCROSE INJECTION 200 MG in SODIUM CHLORIDE 100 ML IVPB ONE (09:15)
--- NOTE | 2016-12-23 09:30 | PN ---
Progress Note, Physician History of Present Illness: FEELS BETTER - Current Medication List Current Medications: Active Medications Albuterol/Ipratropium (Duoneb -) 1 amp NEB QIDR [facility] Last Admin: 12/23/16 06:15 Dose: 1 amp Ascorbic Acid (Vitamin C -) 500 mg PO DAILY [facility] Last Admin: 12/22/16 11:03 Dose: 500 mg Calcium Carbonate (Os-Ced 500mg -) 1,000 mg PO BID [facility] Last Admin: 12/22/16 21:03 Dose: 1,000 mg Carvedilol (Coreg -) 6.25 mg PO BID [facility] Last Admin: 12/22/16 21:03 Dose: 6.25 mg Cholecalciferol (Vitamin D3 -) 4,000 unit PO DAILY [facility] Last Admin: 12/22/16 11:03 Dose: 4,000 unit Citalopram Hydrobromide (Celexa -) 40 mg PO DAILY [facility] Last Admin: 12/22/16 11:02 Dose: 40 mg Gabapentin (Neurontin -) 200 mg PO DAILY [facility] Last Admin: 12/22/16 11:03 Dose: 200 mg Guaifenesin (Mucinex -) 600 mg PO BID PRN PRN Reason: COUGH Last Admin: 12/22/16 21:03 Dose: 600 mg Heparin Sodium (Porcine) (Heparin -) 5,000 unit SQ BID [facility] Last Admin: 12/22/16 21:03 Dose: 5,000 unit Azithromycin 250 mg/ Dextrose 250 mls @ 250 mls/hr IVPB DAILY [facility] Last Admin: 12/22/16 11:32 Dose: 250 mls/hr Piperacillin/Tazobactam/Dextrose (Zosyn 2.25gm Ivpb (Premix)) 50 mls @ 100 mls/ hr IVPB Q8H-IV [facility] Last Admin: 12/23/16 01:55 Dose: 100 mls/hr [place] Sucrose 200 mg/ Sodium (Chloride) 110 mls @ 220 mls/hr IVPB ONCE ONE Stop: 12/23/16 09:44 Levothyroxine Sodium (Synthroid -) 44 mcg PO DAILY@0700 [facility] Last Admin: 12/23/16 06:12 Dose: 44 mcg Oxycodone HCl (Roxicodone -) 10 mg PO Q4H PRN PRN Reason: PAIN Last Admin: 12/22/16 17:58 Dose: 10 mg - Objective Vital Signs: Vital Signs Temperature 98.1 F 12/23/16 06:00 Pulse Rate 79 12/23/16 06:00 Respiratory Rate 18 12/23/16 06:00 Blood Pressure 144/76 12/23/16 06:00 O2 Sat by Pulse Oximetry (%) 94 L 12/22/16 22:00 Cardiovascular: Yes: Regular Rate and Rhythm Respiratory: Yes: Regular, CTA Bilaterally Gastrointestinal: Yes: Normal Bowel Sounds, Soft Labs: CBC, BMP 12/21/16 06:25 12/21/16 06:25 INR, PTT INR 1.04 (0.82-1.09) 12/18/16 18:40 Problem List - Problems (1) Pneumonia Assessment/Plan: IV ABX ID AND PULM CONSULT NEBS CT scan NOTED--ATELECTASIS Code(s): J18.9 - PNEUMONIA, UNSPECIFIED ORGANISM Qualifiers: Pneumonia type: due to unspecified organism Laterality: right Lung location: lower lobe of lung Qualified Code(s): J18.1 - Lobar pneumonia, unspecified organism; J18.1 - Lobar pneumonia, unspecified organism; J18.1 - Lobar pneumonia, unspecified organism (2) COPD (chronic obstructive pulmonary disease) Assessment/Plan: NEBS OXYGEN Code(s): J44.9 - CHRONIC OBSTRUCTIVE PULMONARY DISEASE, UNSPECIFIED Qualifiers : COPD type: COPD with acute lower respiratory infection Qualified Code(s): J44.0 - Chronic obstructive pulmonary disease with acute lower respiratory infection; J44.0 - Chronic obstructive pulmonary disease with acute lower respiratory infection; J44.0 - Chronic obstructive pulmonary disease with acute lower respiratory infection; J44.0 - Chronic obstructive pulmonary disease with acute lower respiratory infection (3) Anemia Assessment/Plan: TRANSFUSE PRBC Code(s): D64.9 - ANEMIA, UNSPECIFIED Qualifiers: Anemia type: due to chronic kidney disease Chronic kidney disease stage : unspecified stage Qualified Code(s): N18.9 - Chronic kidney disease, unspecified; N18.9 - Chronic kidney disease, unspecified; D63.1 - Anemia in chronic kidney disease; D63.1 - Anemia in chronic kidney disease (4) Renal insufficiency Assessment/Plan: MONITOR DC IVF Code(s): N28.9 - DISORDER OF KIDNEY AND URETER, UNSPECIFIED (5) Sepsis syndrome Assessment/Plan: abx per id cultures Microbiology 12/18/16 18:40 Blood - Peripheral Venous Blood Culture - Final NO GROWTH AFTER 5 DAYS INCUBATION 12/18/16 18:40 Blood - Peripheral Venous Blood Culture - Final NO GROWTH AFTER 5 DAYS INCUBATION 12/19/16 21:44 Sputum - Expectorated Gram Stain - Final 12/19/16 21:44 Sputum - Expectorated Sputum Culture - Final Pseudomonas Aeruginosa 12/18/16 18:41 Urine - Urine - Catheterized Urine Culture - Final Escherichia Coli 12/18/16 18:30 Nasopharyngeal Swab Influenza Types A,B Antigen (SAE) - Final 12/18/16 18:30 Nasopharyngeal Swab - Final Code(s): [id number] -
[2016-12-23] MEDS ORDERED: PT OWN MED DRAWER 7, Y5N ONE ×3 (10:41→21:00)
[2016-12-23] MEDS: ASCORBIC ACID 500 MG TABLET (FP) PO SCH (10:54)
[2016-12-23] MEDS: CALCIUM (OYSTER SHELL) 500 MG TABLET (FP) PO SCH ×2 (10:54→21:48)
[2016-12-23] MEDS: GABAPENTIN 100 MG CAPSULE (FP) PO SCH (10:54)
[2016-12-23] MEDS: CITALOPRAM HYDROBROMIDE 20 MG TABLET (FP) PO SCH (10:55)
[2016-12-23] MEDS: CHOLECALCIFEROL (VITAMIN D3) 1,000 UNIT TABLET (FP) PO SCH (10:55)
[2016-12-23] MEDS: CARVEDILOL 6.25 MG TABLET (FP) PO SCH ×2 (10:55→21:22)
[2016-12-23] MEDS: HEPARIN NA (PORCINE) 5,000 UNITS/ML 1ML VIAL SQ SCH ×2 (10:55→21:22)
[2016-12-23 10:58] LABS: BASOPHIL 0.5 % (0-2.0); EOSINOPHIL 2.1 % (0-4.5); MCHC 33.3 g/dl (32.0-36.0); MEAN CELL VOLUME 87.1 fl (80-96); MEAN PLT VOLUME 6.7 fl (7.5-11.1); NEUTROPHILS 82.7 % (42.8-82.8); PLATELET COUNT 437 K/MM3 (134-434); RDW 14.2 % (11.6-15.6); WHITE BLOOD COUNT 16.8 K/mm3 (4.0-10.0)
--- NOTE | 2016-12-23 11:29 | PN ---
Progress Note (short form) - Note Progress Note: alert still quite fatigued, requiring assistance to get out of bed to wheelchair Vital Signs Period Temp Pulse Resp BP Sys/Kennedy Pulse Ox Last 24 Hr 97.9 F-98.7 F 79-87 18-20 114-145/57-76 92-94 cor-rrr lungs bibasilar crackles abd soft,nt ext no edema CBC, BMP 12/23/16 10:30 Microbiology 12/18/16 18:40 Blood - Peripheral Venous Blood Culture - Preliminary NO GROWTH OBTAINED AFTER 96 HOURS, INCUBATION TO CONTINUE FOR 1 DAYS. 12/18/16 18:40 Blood - Peripheral Venous Blood Culture - Preliminary NO GROWTH OBTAINED AFTER 96 HOURS, INCUBATION TO CONTINUE FOR 1 DAYS. 12/19/16 21:44 Sputum - Expectorated Gram Stain - Final 12/19/16 21:44 Sputum - Expectorated Sputum Culture - Final Pseudomonas Aeruginosa 12/18/16 18:41 Urine - Urine - Catheterized Urine Culture - Final Escherichia Coli 12/18/16 18:30 Nasopharyngeal Swab Influenza Types A,B Antigen (SAE) - Final 12/18/16 18:30 Nasopharyngeal Swab - Final Current Medications Acetaminophen (Tylenol -) 325 mg PO Q4H PRN PRN Reason: PAIN Stop: 12/21/16 22:55 Last Admin: 12/21/16 10:30 Dose: 325 mg Albuterol/Ipratropium (Duoneb -) 1 amp NEB QIDR [facility] Last Admin: 12/21/16 06:58 Dose: 1 amp Ascorbic Acid (Vitamin C -) 500 mg PO DAILY [facility] Last Admin: 12/21/16 10:20 Dose: 500 mg Calcium Carbonate (Os-Ced 500mg -) 1,000 mg PO BID [facility] Last Admin: 12/21/16 10:22 Dose: 1,000 mg Carvedilol (Coreg -) 6.25 mg PO BID [facility] Last Admin: 12/21/16 10:21 Dose: 6.25 mg Cholecalciferol (Vitamin D3 -) 4,000 unit PO DAILY [facility] Last Admin: 12/21/16 10:20 Dose: 4,000 unit Citalopram Hydrobromide (Celexa -) 40 mg PO DAILY [facility] Last Admin: 12/21/16 10:21 Dose: 40 mg Ferrous Sulfate (Feosol -) 325 mg PO DAILY [facility] Last Admin: 12/21/16 10:21 Dose: 325 mg Gabapentin (Neurontin -) 200 mg PO DAILY [facility] Last Admin: 12/21/16 10:21 Dose: 200 mg Guaifenesin (Mucinex -) 600 mg PO BID PRN PRN Reason: COUGH Last Admin: 12/20/16 21:28 Dose: 600 mg Heparin Sodium (Porcine) (Heparin -) 5,000 unit SQ BID [facility] Last Admin: 12/21/16 10:20 Dose: 5,000 unit Azithromycin 250 mg/ Dextrose 250 mls @ 250 mls/hr IVPB DAILY [facility] Last Admin: 12/21/16 10:30 Dose: 250 mls/hr Piperacillin/Tazobactam/Dextrose (Zosyn 2.25gm Ivpb (Premix)) 50 mls @ 100 mls/ hr IVPB Q8H-IV [facility] Last Admin: 12/21/16 10:30 Dose: 100 mls/hr Levothyroxine Sodium (Synthroid -) 44 mcg PO DAILY@0700 [facility] Last Admin: 12/21/16 06:10 Dose: 44 mcg Oxycodone HCl (Roxicodone -) 10 mg PO Q4H PRN PRN Reason: PAIN Last Admin: 12/21/16 10:31 Dose: [address]- patchy infiltrate left base, right effusion with atelectasis imp/reccd RLL pneumonia dry gangrene of the thumb-no signs of soft tissue infection COPD (home oxygen) history of lung cancer history of breast cancer ckd uti zosyn to continue day #5 antibiotics d/c zithromax if wbc improves, can switch to po levaquin in am Problem List - Problems (1) Pneumonia Code(s): J18.9 - PNEUMONIA, UNSPECIFIED ORGANISM Qualifiers: Pneumonia type: due to unspecified organism Laterality: right Lung location: lower lobe of lung Qualified Code(s): J18.1 - Lobar pneumonia, unspecified organism; J18.1 - Lobar pneumonia, unspecified organism; J18.1 - Lobar pneumonia, unspecified organism (2) Gangrene of thumb Code(s): I96 - [place], NOT ELSEWHERE CLASSIFIED (3) COPD (chronic obstructive pulmonary disease) Code(s): J44.9 - CHRONIC OBSTRUCTIVE PULMONARY DISEASE, UNSPECIFIED Qualifiers : COPD type: COPD with acute lower respiratory infection Qualified Code(s): J44.0 - Chronic obstructive pulmonary disease with acute lower respiratory infection; J44.0 - Chronic obstructive pulmonary disease with acute lower respiratory infection; J44.0 - Chronic obstructive pulmonary disease with acute lower respiratory infection; J44.0 - Chronic obstructive pulmonary disease with acute lower respiratory infection (4) CKD (chronic kidney disease) Code(s): N18.9 - CHRONIC KIDNEY DISEASE, UNSPECIFIED
[2016-12-23 11:30] LABS: ALBUMIN 1.8 g/dl (3.4-5.0); ANION GAP 5 (8-16); BILIRUBIN,TOTAL 0.4 mg/dL (0.2-1.0); CALCIUM 11.5 mg/dL (8.5-10.1); CO2 30 mmol/L (21-32); CREATININE 2.1 mg/dL (0.55-1.02); GLUCOSE,RANDOM 107 mg/dL (74-106); SGOT/AST 38 U/L (15-37); SGPT/ALT 56 U/L (12-78); TOT PROT 6.7 g/dl (6.4-8.2)
[2016-12-23 11:31] LABS: ALK PHOS 81 U/L (45-117)
--- NOTE | 2016-12-23 15:12 | PN ---
Progress Note (short form) - Note Progress Note: PULMONARY AFEBRILE CHART REVIEWED RESTING COMFORTABLE ANICTERIC DIMINISHED SOUNDS RIGHT BASE S12 BS+ NO EDEMA LABS/MEDS/NOTES/IMAGING REVIEWED RIGHT LOWER LOBE PNEUMONIA SMALL CELL LUNG CA /CAD/PCI STENT/HTN/HPL COPD/PUL HTN RI THYROID DISEASE ANTIBIOTICS/O2/NEBS/ WILL FOLLOW Francois ROBERTS MD
--- NOTE | 2016-12-23 16:23 | PN ---
Progress Note (short form) - Note Progress Note: Patient seen and examined Denies any complaints Last Vital Signs Temp Pulse Resp BP Pulse Ox 98.2 F 80 18 130/74 91 L 12/23/16 13:44 12/23/16 13:44 12/23/16 13:44 12/23/16 13:44 12/23/16 09:00 Cor: RSR, No murmurs, No gallops Lungs: Clear to P&A Abd: Soft, Normal bowel sounds, No organomegaly Ext:No significant edema Skin: No rashes, Integument intact Abnormal Lab Results 12/20/16 12/23/16 12/23/16 10:00 10:30 10:30 WBC 16.8 H Plt Count 437 H D MPV 6.7 L Anion Gap 5 L BUN 44 H Creatinine 2.1 H Random Glucose 107 H D Calcium 11.5 H D AST 38 H D Albumin 1.8 L Crossmatch See Detail Home Medication List Medication Instructions Recorded Confirmed Type Ascorbate Calcium [Vitamin C] 500 mg PO DAILY 12/18/16 12/18/16 History Calcium Carbonate [Calcium] 1,000 mg PO BID 12/18/16 12/18/16 History Carvedilol [Coreg -] 6.25 mg PO BID 12/18/16 12/18/16 History Cholecalciferol (Vitamin D3) 4,000 unit PO DAILY 12/18/16 12/18/16 History [Vitamin D3] Gabapentin 200 mg PO DAILY 12/18/16 12/18/16 History Guaifenesin [Mucinex -] 600 mg PO BID PRN 12/18/16 12/18/16 History Hydrocodone/Acetaminophen 1 each PO Q4H PRN 12/18/16 12/18/16 History [Hydrocodon-Acetaminophn 10-325] Iron 65 mg PO DAILY 12/18/16 12/18/16 History Levothyroxine [Synthroid -] 44 mcg PO DAILY 12/18/16 12/18/16 History Active Medications Generic Name Dose Route Start Last Admin Trade Name Freq PRN Reason Stop Dose Admin Albuterol/Ipratropium 1 amp 12/19/16 12:00 12/23/16 12:00 Duoneb - NEB 1 amp QIDR NURIS Administration Ascorbic Acid 500 mg 12/19/16 10:00 12/23/16 10:54 Vitamin C - PO 500 mg DAILY NURIS Administration Calcium Carbonate 1,000 mg 12/19/16 10:00 12/23/16 10:54 Os-Ced 500mg - PO 1,000 mg BID NURIS Administration Carvedilol 6.25 mg 12/19/16 10:00 12/23/16 10:55 Coreg - PO 6.25 mg BID NURIS Administration Cholecalciferol 4,000 unit 12/19/16 10:00 12/23/16 10:55 Vitamin D3 - PO 4,000 unit DAILY NURIS Administration Citalopram Hydrobromide 40 mg 12/19/16 10:00 12/23/16 10:55 Celexa - PO 40 mg DAILY NURIS Administration Gabapentin 200 mg 12/19/16 10:00 12/23/16 10:54 Neurontin - PO 200 mg DAILY NURIS Administration Guaifenesin 600 mg 12/18/16 22:38 12/22/16 21:03 Mucinex - PO 600 mg BID PRN Administration COUGH Heparin Sodium (Porcine) 5,000 unit 12/19/16 10:00 12/23/16 10:55 Heparin - SQ 5,000 unit BID NURIS Administration Piperacillin/Tazobactam/Dextrose 50 mls @ 100 mls/hr 12/19/16 10:00 12/23/16 12 :51 Zosyn 2.25gm Ivpb (Premix) IVPB 100 mls/hr Q8H-IV NURIS Administration Levothyroxine Sodium 44 mcg 12/19/16 07:00 12/23/16 06:12 Synthroid - PO 44 mcg DAILY@0700 NURIS Administration Oxycodone HCl 10 mg 12/22/16 17:54 12/22/16 17:58 Roxicodone - PO 10 mg Q4H PRN Administration PAIN A/P 76 y/o patient with h/o breast Cancer --treated by --originally 8 yrs. ago s/p lumpectomy/RT/tamoxifen x 5yrs. ?? recurrence vs lung primary ---?? mediastinum --s/p chemo /RT in 2013 was on [place] /cis for 8 cycles then switched to gemzaar --bolton s been off therapy Has cisplatin induced neuropathy/CKD Bone scan last admission showed no e/o disease Now withLL pneumonia. CT dalia-RLL atelectasis/effusion, LLL PNA/effusion, mild mediastinal adenopathy will need PET-CT outpatient Anemia---multifactorial gi bleed?--stool occult + EGD 09/12--erosions Iron studies s/o low iron satc/w iron deficiency + high ferriti c/w anemia of chronic dsease/acute inflammation CKD IV iron replacement --gave 200mg today--given low iron sat ? colonoscopy/gi eval ? procrit per renal protocol once iron repleted High calcium--due to vit. D? stopped vit D IV fluids bone scan
[2016-12-23] MEDS ORDERED: SODIUM CHLORIDE 1,000 ML IV SCH (16:30)
[2016-12-24] MEDS: ALBUTEROL SO4 2.5/IPRATROPIUM 0.5 INH SOL 3 ML VIAL.NEB. NEB SCH ×3 (00:24→11:06)
[2016-12-24] MEDS: PIPERACILLIN/TAZOB 2.25 GM 50 ML IVPB SCH ×2 (01:37→09:59)
[2016-12-24] MEDS: oxyCODONE HCL 5 MG TABLET PO PRN ×2 (02:03→10:19)
[2016-12-24] MEDS: LEVOTHYROXINE NA 88 MCG TABLET (FP) PO SCH (06:27)
[2016-12-24 08:20] VITALS: BP 141/78; TEMP 98.6
[2016-12-24 08:50] LABS: MCH 29.9 pg (25.7-33.7); MEAN PLT VOLUME 7.1 fl (7.5-11.1); PLATELET COUNT 410 K/MM3 (134-434); RDW 14.6 % (11.6-15.6); WHITE BLOOD COUNT 13.3 K/mm3 (4.0-10.0)
[2016-12-24] MEDS ORDERED: PT OWN MED DRAWER 7, Y5N ONE (09:50)
[2016-12-24] MEDS: CARVEDILOL 6.25 MG TABLET (FP) PO SCH (09:56)
[2016-12-24] MEDS: CITALOPRAM HYDROBROMIDE 20 MG TABLET (FP) PO SCH (09:56)
[2016-12-24] MEDS: GABAPENTIN 100 MG CAPSULE (FP) PO SCH (09:57)
[2016-12-24] MEDS: HEPARIN NA (PORCINE) 5,000 UNITS/ML 1ML VIAL SQ SCH (09:57)
[2016-12-24] MEDS: CALCIUM (OYSTER SHELL) 500 MG TABLET (FP) PO SCH (09:58)
[2016-12-24] MEDS: ASCORBIC ACID 500 MG TABLET (FP) PO SCH (09:59)
--- NOTE | 2016-12-24 10:43 | DS ---
Physical Examination Vital Signs: Vital Signs Temperature 98.6 F 12/24/16 06:00 Pulse Rate 78 12/24/16 06:00 Respiratory Rate 18 12/24/16 06:00 Blood Pressure 141/78 12/24/16 06:00 O2 Sat by Pulse Oximetry (%) 94 L 12/23/16 21:00 Constitutional: Yes: Mild Distress Eyes: Yes: WNL HENT: Yes: WNL Neck: Yes: WNL Cardiovascular: Yes: WNL Respiratory: Yes: On Nasal O2, SOB Gastrointestinal: Yes: WNL Renal/: Yes: WNL Musculoskeletal: Yes: Muscle Weakness Extremities: Yes: WNL Peripheral Pulses WNL: Yes Integumentary: Yes: WNL Wound/Incision: Yes: Clean/Dry Neurological: Yes: Pre-Existing Deficit, Weakness ...Motor Strength: LLE, RLE Psychiatric: Yes: Other Labs: CBC, BMP 12/24/16 07:30 12/23/16 10:30 Discharge Summary Reason For Visit: WEAKNESS/SOB Current Active Problems Anemia (Acute) CKD (chronic kidney disease) (Acute) COPD (chronic obstructive pulmonary disease) (Acute) Fever in adult (Acute) Leukocytosis (Acute) Pneumonia (Acute) Renal insufficiency (Acute) Urinary tract infection (Acute) Procedures: Principal: CHEST CT Hospital Course: ADMITTED PNA/COPD/CKD/WEAKNESS IV ABX, PT, NEBS 02 SUPPORT, IMPROVED WILL NEED RESP THERAPY AND PHYSICAL THERAPY Condition: Fair - Instructions Diet, Activity, Other Instructions: LOW SALT Referrals: Isaiah Thompson MD [Primary Care Provider] - Disposition: [facility] FACILITY - Home Medications Comprehensive Discharge Medication List: Ambulatory Orders Citalopram Hydrobromide [Celexa -] 40 mg PO DAILY tablet 08/05/16 Ascorbate Calcium [Vitamin C] 500 mg PO DAILY 12/18/16 Calcium Carbonate [Calcium] 1,000 mg PO BID 12/18/16 Carvedilol [Coreg -] 6.25 mg PO BID 12/18/16 Cholecalciferol (Vitamin D3) [Vitamin D3] 4,000 unit PO DAILY 12/18/16 Gabapentin 200 mg PO DAILY 12/18/16 Guaifenesin [Mucinex -] 600 mg PO BID PRN 12/18/16 Hydrocodone/Acetaminophen [Hydrocodon-Acetaminophn 10-325] 1 each PO Q4H PRN Iron 65 mg PO DAILY 12/18/16 Levothyroxine [Synthroid -] 44 mcg PO DAILY 12/18/16 Albuterol 2.5/Ipratropium 0.5 [Duoneb -] 1 amp NEB QIDR amp 12/24/16 Heparin - 5,000 unit SQ BID vial 12/24/16 Oxycodone HCl [Roxicodone -] 10 mg PO Q4H PRN #0 tablet MDD 6 12/24/16
[2016-12-24 11:07] VITALS: PULSE 86
--- NOTE | 2016-12-24 11:18 | PN ---
Progress Note (short form) - Note Progress Note: Overall feels better. No acute events overnight. Intake & Output 12/21/16 12/22/16 12/23/16 12/24/16 23:59 23:59 23:59 23:59 Intake Total 750 1050 550 Balance 750 1050 550 Last Vital Signs Temp Pulse Resp BP Pulse Ox 98.6 F 86 18 141/78 96 12/24/16 06:00 12/24/16 11:06 12/24/16 06:00 12/24/16 06:00 12/24/16 11:06 Active Medications Albuterol/Ipratropium (Duoneb -) 1 amp NEB QIDR [facility] Last Admin: 12/24/16 11:06 Dose: 1 amp Ascorbic Acid (Vitamin C -) 500 mg PO DAILY [facility] Last Admin: 12/24/16 09:59 Dose: 500 mg Calcium Carbonate (Os-Ced 500mg -) 1,000 mg PO BID [facility] Last Admin: 12/24/16 09:58 Dose: 1,000 mg Carvedilol (Coreg -) 6.25 mg PO BID [facility] Last Admin: 12/24/16 09:56 Dose: 6.25 mg Citalopram Hydrobromide (Celexa -) 40 mg PO DAILY [facility] Last Admin: 12/24/16 09:56 Dose: 40 mg Gabapentin (Neurontin -) 200 mg PO DAILY [facility] Last Admin: 12/24/16 09:57 Dose: 200 mg Guaifenesin (Mucinex -) 600 mg PO BID PRN PRN Reason: COUGH Last Admin: 12/22/16 21:03 Dose: 600 mg Heparin Sodium (Porcine) (Heparin -) 5,000 unit SQ BID [facility] Last Admin: 12/24/16 09:57 Dose: 5,000 unit Piperacillin/Tazobactam/Dextrose (Zosyn 2.25gm Ivpb (Premix)) 50 mls @ 100 mls/ hr IVPB Q8H-IV [facility] Last Admin: 12/24/16 09:59 Dose: 100 mls/hr Sodium Chloride (Normal Saline -) 1,000 mls @ 50 mls/hr IV ASDIR [facility] Stop: 12/24/16 16:24 Last Admin: 12/23/16 17:03 Dose: 50 mls/hr Levothyroxine Sodium (Synthroid -) 44 mcg PO DAILY@0700 NURIS Last Admin: 12/24/16 06:27 Dose: 44 mcg Oxycodone HCl (Roxicodone -) 10 mg PO Q4H PRN PRN Reason: PAIN Last Admin: 12/24/16 10:19 Dose: 10 mg Constitutional: Yes: Calm, Thin Eyes: Yes: WNL HENT: Yes: WNL Neck: Yes: WNL Cardiovascular: Yes: Regular Rate and Rhythm Respiratory: Yes: Diminished, few scattered rhonchi Gastrointestinal: Yes: Normal Bowel Sounds, Soft Extremities: Yes: WNL Edema: No Labs: Laboratory Results - last 24 hr 12/20/16 12/23/16 12/24/16 10:00 10:30 07:30 WBC 13.3 H RBC 3.48 L Hgb 10.4 L Hct 30.6 L MCV 88.0 MCH 29.9 MCHC 34.0 RDW 14.6 Plt Count 410 MPV 7.1 L Sodium 136 Potassium 4.2 Chloride 101 Carbon Dioxide 30 D Anion Gap 5 L BUN 44 H Creatinine 2.1 H Creat Clearance w eGFR 22.90 Random Glucose 107 H D Calcium 11.5 H D Total Bilirubin 0.4 D AST 38 H D ALT 56 Alkaline Phosphatase 81 Total Protein 6.7 Albumin 1.8 L Blood Type B POSITIVE Antibody Screen Negative Crossmatch See Detail Problem List - Problems (1) Anemia Code(s): D64.9 - ANEMIA, UNSPECIFIED Qualifiers: Anemia type: due to chronic kidney disease Chronic kidney disease stage : unspecified stage Qualified Code(s): N18.9 - Chronic kidney disease, unspecified; N18.9 - Chronic kidney disease, unspecified; D63.1 - Anemia in chronic kidney disease; D63.1 - Anemia in chronic kidney disease (2) CKD (chronic kidney disease) Code(s): N18.9 - CHRONIC KIDNEY DISEASE, UNSPECIFIED (3) COPD (chronic obstructive pulmonary disease) Code(s): J44.9 - CHRONIC OBSTRUCTIVE PULMONARY DISEASE, UNSPECIFIED Qualifiers : COPD type: COPD with acute lower respiratory infection Qualified Code(s): J44.0 - Chronic obstructive pulmonary disease with acute lower respiratory infection; J44.0 - Chronic obstructive pulmonary disease with acute lower respiratory infection; J44.0 - Chronic obstructive pulmonary disease with acute lower respiratory infection; J44.0 - Chronic obstructive pulmonary disease with acute lower respiratory infection (4) Fever in adult Code(s): R50.9 - FEVER, UNSPECIFIED (5) Leukocytosis Code(s): D72.829 - ELEVATED WHITE BLOOD CELL COUNT, UNSPECIFIED Qualifiers: Leukocytosis type: unspecified Qualified Code(s): D72.829 - Elevated white blood cell count, unspecified; D72.829 - Elevated white blood cell count, unspecified (6) Pneumonia Code(s): J18.9 - PNEUMONIA, UNSPECIFIED ORGANISM Qualifiers: Pneumonia type: due to unspecified organism Laterality: right Lung location: lower lobe of lung Qualified Code(s): J18.1 - Lobar pneumonia, unspecified organism; J18.1 - Lobar pneumonia, unspecified organism; J18.1 - Lobar pneumonia, unspecified organism (7) ASHD (arteriosclerotic heart disease) Code(s): I25.10 - ATHSCL HEART DISEASE OF [place] CORONARY ARTERY W/O ANG PCTRS (8) Aortic stenosis Code(s): I35.0 - NONRHEUMATIC AORTIC (VALVE) STENOSIS Qualifiers: Cardiac valve disease etiology: nonrheumatic Qualified Code(s): I35.0 - Nonrheumatic aortic (valve) stenosis; I35.0 - Nonrheumatic aortic (valve ) stenosis (9) Breast CA Code(s): C50.919 - MALIGNANT NEOPLASM OF UNSP SITE OF UNSPECIFIED FEMALE BREAST (10) CAD (coronary artery disease) Code(s): I25.10 - ATHSCL HEART DISEASE OF [place] CORONARY ARTERY W/O ANG PCTRS Qualifiers: Coronary Disease-Associated Artery/Lesion type: [place] artery [place] vs. transplanted heart: [place] heart Associated angina: without angina Qualified Code(s): I25.10 - Atherosclerotic heart disease of [place] coronary artery without angina pectoris; I25.10 - Atherosclerotic heart disease of [place] coronary artery without angina pectoris; I25.10 - Atherosclerotic heart disease of [place] coronary artery without angina pectoris (11) Chronic hypoxemic respiratory failure Code(s): J96.11 - CHRONIC RESPIRATORY FAILURE WITH HYPOXIA (12) Cough Code(s): R05 - COUGH (13) Gangrene of [place] Code(s): I96 - GANGRENE, NOT ELSEWHERE CLASSIFIED (14) Hypothyroid Code(s): E03.9 - HYPOTHYROIDISM, UNSPECIFIED Qualifiers: Hypothyroidism type: unspecified Qualified Code(s): E03.9 - Hypothyroidism, unspecified; E03.9 - Hypothyroidism, unspecified; E03.9 - Hypothyroidism, unspecified (15) Hypoxia Code(s): R09.02 - HYPOXEMIA (16) Lung cancer Code(s): C34.90 - MALIGNANT NEOPLASM OF UNSP PART OF UNSP BRONCHUS OR LUNG Qualifiers: Lung location: unspecified part of lung (17) Right lower lobe pneumonia Code(s): J18.1 - LOBAR PNEUMONIA, UNSPECIFIED ORGANISM (18) Severe malnutrition Code(s): E43 - UNSPECIFIED SEVERE PROTEIN-CALORIE MALNUTRITION Assessment/Plan IMP RLL PNEUMONIA CHRONIC HYPOXEMIC RESPIRATORY FAILURE ADVANCED COPD LUNG CA SMALL CELL S/P CHEMO H/O BREAST CA PULMONARY HTN ASHD S/P STENT ANEMIA CKD PLAN IV ANTIBIOTICS PER ID INHALED BRONCHODILATORS O2 F/U CHEST X-RAYS OUTPATIENT TO DOCUMENT RESOLUTION OF INFILTRATES D/C PLANNING DR JARRELL
--- NOTE | 2016-12-24 12:54 | PN ---
Progress Note (short form) - Note Progress Note: Hematology/Oncology follow-up Note S: Patient does ot have any pain or any complaints today. Last Vital Signs Temp Pulse Resp BP Pulse Ox 98.6 F 86 18 141/78 96 12/24/16 06:00 12/24/16 11:06 12/24/16 09:00 12/24/16 06:00 12/24/16 11:06 Cor: RSR, No murmurs, No gallops Lungs: Clear to P&A Abd: Soft, Normal bowel sounds, No organomegaly Ext:No significant edema Skin: No rashes, Integument intact CBC, BMP 12/24/16 07:30 12/23/16 10:30 Current Medications Generic Name Dose Route Start Last Admin Trade Name Freq PRN Reason Stop Dose Admin Ascorbic Acid 500 mg 12/19/16 10:00 12/24/16 09:59 Vitamin C - PO 500 mg DAILY NURIS Administration Calcium Carbonate 1,000 mg 12/19/16 10:00 12/24/16 09:58 Os-Ced 500mg - PO 1,000 mg BID NURIS Administration Carvedilol 6.25 mg 12/19/16 10:00 12/24/16 09:56 Coreg - PO 6.25 mg BID NURIS Administration Citalopram Hydrobromide 40 mg 12/19/16 10:00 12/24/16 09:56 Celexa - PO 40 mg DAILY NURIS Administration Gabapentin 200 mg 12/19/16 10:00 12/24/16 09:57 Neurontin - PO 200 mg DAILY NURIS Administration Guaifenesin 600 mg 12/18/16 22:38 12/22/16 21:03 Mucinex - PO 600 mg BID PRN Administration COUGH Heparin Sodium (Porcine) 5,000 unit 12/19/16 10:00 12/24/16 09:57 Heparin - SQ 5,000 unit BID NURIS Administration Piperacillin/Tazobactam/Dextrose 50 mls @ 100 mls/hr 12/19/16 10:00 12/24/16 09 :59 Zosyn 2.25gm Ivpb (Premix) IVPB 100 mls/hr Q8H-IV NURIS Administration Sodium Chloride 1,000 mls @ 50 mls/hr 12/23/16 16:30 12/23/16 17:03 Normal Saline - IV 12/24/16 16:24 50 mls/hr ASDIR NURIS Administration Levothyroxine Sodium 44 mcg 12/19/16 07:00 12/24/16 06:27 Synthroid - PO 44 mcg DAILY@0700 NURIS Administration Oxycodone HCl 10 mg 12/22/16 17:54 12/24/16 10:19 Roxicodone - PO 10 mg Q4H PRN Administration PAIN 76 y/o patient with h/o breast Cancer treated by 8 yrs. ago s/p lumpectomy/RT/tamoxifen x 5yrs.There was a concern for recurrence vs lung primary ---?? mediastinum --s/p chemo /RT in 2013. Pt was on [place] /cis for 8 cycles then switched to gemzaar and has been off therapy Has cisplatin induced neuropathy/CKD Bone scan last admission showed no e/o disease LLL pneumonia -stable, not hypoxic today -on IV zosyn per ID Anemia---multifactorial -stable, will monitor -received Iron during the week -evaluate need for Procrit next week Hypercalcemia -holding all calcium supplements -On IVF -Please repeat Ca level today -may need a repeat bone scan
[2016-12-25 08:06] LABS: IG G IMMUNOGLOBULIN 1190 mg/dL (700-1600); IGM IMMUNOGLOBULIN 912 mg/dL (26-217)
[2016-12-27 12:47] LABS: IGG IMMUNOGLOBULIN 1190
--- NOTE | 2016-12-29 16:01 | DS ---
Physical Examination Vital Signs: Vital Signs Temperature 98.6 F 12/24/16 06:00 Pulse Rate 86 12/24/16 11:06 Respiratory Rate 18 12/24/16 09:00 Blood Pressure 141/78 12/24/16 06:00 O2 Sat by Pulse Oximetry (%) 96 12/24/16 11:06 Labs: CBC, BMP 12/24/16 07:30 12/23/16 10:30 Discharge Summary Reason For Visit: WEAKNESS/SOB Hospital Course: addendum (5) Sepsis syndrome Assessment/Plan: abx per id cultures Microbiology 12/18/16 18:40 Blood - Peripheral Venous Blood Culture - Final NO GROWTH AFTER 5 DAYS INCUBATION 12/18/16 18:40 Blood - Peripheral Venous Blood Culture - Final NO GROWTH AFTER 5 DAYS INCUBATION 12/19/16 21:44 Sputum - Expectorated Gram Stain - Final 12/19/16 21:44 Sputum - Expectorated Sputum Culture - Final Pseudomonas Aeruginosa 12/18/16 18:41 Urine - Urine - Catheterized Urine Culture - Final Escherichia Coli 12/18/16 18:30 Nasopharyngeal Swab Influenza Types A,B Antigen (SAE) - Final 12/18/16 18:30 Nasopharyngeal Swab - Final Code(s): [id number] - Condition: Fair - Instructions Diet, Activity, Other Instructions: LOW SALT Referrals: Isaiah Thompson MD [Primary Care Provider] - Disposition: [facility]TERM FACILITY - Home Medications Comprehensive Discharge Medication List: Ambulatory Orders Citalopram Hydrobromide [Celexa -] 40 mg PO DAILY tablet 08/05/16 Ascorbate Calcium [Vitamin C] 500 mg PO DAILY 12/18/16 Calcium Carbonate [Calcium] 1,000 mg PO BID 12/18/16 Carvedilol [Coreg -] 6.25 mg PO BID 12/18/16 Cholecalciferol (Vitamin D3) [Vitamin D3] 4,000 unit PO DAILY 12/18/16 Gabapentin 200 mg PO DAILY 12/18/16 Guaifenesin [Mucinex -] 600 mg PO BID PRN 12/18/16 Hydrocodone/Acetaminophen [Hydrocodon-Acetaminophn 10-325] 1 each PO Q4H PRN Iron 65 mg PO DAILY 12/18/16 Levothyroxine [Synthroid -] 44 mcg PO DAILY 12/18/16 Albuterol 2.5/Ipratropium 0.5 [Duoneb -] 1 amp NEB QIDR amp 12/24/16 Heparin - 5,000 unit SQ BID vial 12/24/16 Oxycodone HCl [Roxicodone -] 10 mg PO Q4H PRN #0 tablet MDD 6 12/24/16
== END 2016-12-24 13:27 | DRG 871 ==
LOC: JER 18:21 → JERBED 21:09 → UNDOADMIN 21:39 → JERBED 21:39 → J6S 22:58
PROVIDERS: ADMIT Family Medicine; ATTEND Family Medicine
DX: A41.9 Sepsis, unspecified organism (principal); J18.9 Pneumonia, unspecified organism; E43 Unspecified severe protein-calorie malnutrition; I96 Gangrene, not elsewhere classified; J96.11 Chronic respiratory failure with hypoxia; J98.11 Atelectasis; Z68.1 Body mass index [BMI] 19.9 or less, adult; E78.5 Hyperlipidemia, unspecified; J44.9 Chronic obstructive pulmonary disease, unspecified; Z99.81 Dependence on supplemental oxygen; E03.9 Hypothyroidism, unspecified; Z87.891 Personal history of nicotine dependence; D64.9 Anemia, unspecified; I12.9 Hypertensive chronic kidney disease with stage 1 through stage 4 chronic kidney disease, or unspecified chronic kidney disease; N18.9 Chronic kidney disease, unspecified; I35.0 Nonrheumatic aortic (valve) stenosis; I27.20 Pulmonary hypertension, unspecified; F41.9 Anxiety disorder, unspecified; M54.5 Low back pain; K57.90 Diverticulosis of intestine, part unspecified, without perforation or abscess without bleeding; M85.80 Other specified disorders of bone density and structure, unspecified site; Z85.3 Personal history of malignant neoplasm of breast; Z85.118 Personal history of other malignant neoplasm of bronchus and lung; I25.10 Atherosclerotic heart disease of native coronary artery without angina pectoris; R59.0 Localized enlarged lymph nodes; E83.52 Hypercalcemia
CPT/HCPCS: 36415; 36430; 71010-TC; 71250-TC; 80053; 81003; 81015; 82272; 82550; 82728; 82784; 82803; 83540; 83550; 83605; 84439; 84443; 84484; 85025; 85027; 85610; 85730; 86850; 86900; 86901; 86922; 87040; 87070; 87086; 87186; 87205; 87804; 93005; 93010; 94640; 97116-GP; 97161-GP; 99285-25; J1644; J1756; P9038; P9058

== ENCOUNTER 2017-06-22 21:14 | Inpatient (IN) | payer OTHER, MEDICARE ==
--- NOTE | 2017-06-22 21:30 | PDOC ---
History of Present Illness - General History Source: Patient Exam Limitations: No Limitations - History of Present Illness Initial Comments: 06/22/17 21:46 The patient is a 77 year old female who presents to the emergency department complaining of shortness of breath beginning 1 hour ago. The patient reports progressive shortness of breath over the last 2 days. The patient describes it feels like an elephant is on my chest. The patient was recently admitted to [facility] 4 days ago for similar symptoms, where she had a complete workup, but had negative results. After discharge, she states her condition was initially improving; however, it worsened over the last few days. She reports associated symptoms of diaphoresis and palpitations associated with shortness of breath. The patient denies chest pain, headache, and dizziness. Denies fevers, chills, nausea, vomiting, diarrhea, and constipation. PAST MEDICAL HISTORY: Lung cancer, Breast cancer, COPD PAST SURGICAL HISTORY: no significant history FAMILY HISTORY: no pertinent history SOCIAL HISTORY: Pt lives with family and is employed. MEDICATIONS: reviewed ALLERGIES: As per nursing notes ROS General: No fevers or chills, no weakness, no weight loss HEENT: No change in vision. No sore throat,. No ear pain Cardiovascular: (+)Shortness of breath. No chest pain. Respiratory: No cough, or wheezing. Gastrointestinal: no nausea, vomiting, diarrhea or constipation, No rectal bleeding Genitourinary: No dysuria, hematuria, or frequency Musculoskeletal: No joint or muscle pain or swelling Neurologic: No headache, vertigo, dizziness or loss of consciousness Psychiatric: nor depression Skin: No rashes or easy bruising Endocrine: no increased thirst or abnormal weight change Allergic: no skin or latex allergy All other systems reviewed and normal Exam: General: (+)Moderate distress, dyspneic HEENT: Throat: Normal, tonsils normal, no erythema or exudate Neck: Supple, no meningeal signs, no lymphadenopathy Eyes::Pupils equal reactive and round, extraocular motion intact Chest: Nontender to palpation Cardiac: Tachycardic. Respiratory: (+)Decreased breath sounds bilaterally with poor air exchange. Abdomen: Soft, nondistended, normal bowel sounds, nontender to palpation diffusely Extremities: Warm, dry, no cyanosis, clubbing, or edema Skin: profusely diaphoretic, no edema. Neuro: Alert and oriented x3, nonfocal exam, grossly intact, normal gait Psych: Normal mood and affect. <Connor Kay - Last Filed: 06/22/17 21:46> - General History Source: Patient Exam Limitations: No Limitations - History of Present Illness Initial Comments: A portion of this note was documented by scribe services under my direction. I have reviewed the details of the note, within reason, and agree with the documentation. The case summary and management plan written by me. 21:20 This is a 77-year-old female who comes in complaining of severe difficulty breathing on arrival patient was noted to be diaphoretic complaining of some chest pain and in moderate respiratory distress. Will obtain workup including CBC, comp, ABG, lactic acid, cardiac enzymes, EKG, chest x-ray, blood cultures, urine, urine culture We'll put patient on BiPAP. We'll follow-up results of labs and continue to monitor patient and reevaluated frequently 22:00 Patient improved on BiPAP. More comfortable. Workup pending EKG shows normal sinus tachycardia at a rate of 129, nonspecific intraventricular block no acute ST-T wave changes when compared with old EKG of November 2016 no significant change 22:30 Patient feeling much better, and O2 sats now in the low 90s. Patient's heart rate is down high 90s low 100s. Patient will be admitted to an ICU bed at [facility] Patient's white count is 19.7 Patient given ceftriaxone in case there is apparent infectious component, secondary to the pneumonia Patient has some mild hyperkalemia of 5.2 Patient has some mild hyperglycemia Patient's chest x-ray shows probable right lower lobe infiltrate and moderate CHF, for which she was given Lasix. Patient's ABG is still pending 06/22/17 23:20 Patient is feeling much better. Respiratory rate is no normal heart rate is come down to 104 and O2 sat is 96% on BiPAP. ABG shows a pH of 7.31 pCO2 of 47 and pO2 is 76 her COPD who was severe difficulty distal direct profusely diaphoretic and O2 sats low to mid 80s Patient's potassium is mildly elevated at 5.2 Discussed admission with hospitalist B[facility]OVER in the ICU at [facility]. Patient accepted for admission to [facility] ICU . Signout given to the admitting hospitalist, who accepts the patient. Discussed plan with the patient family at bedside, Patient and family aware of the plan and agree. <Terrence Kerns I - Last Filed: 06/22/17 23:43> - General Chief Complaint: Shortness of Breath Stated Complaint: COPD EXAC Time Seen by Provider: 06/22/17 21:24 Past History <Connor Kay - Last Filed: 06/22/17 21:46> - Past Medical History Anemia: Yes Asthma: No Cancer: Yes (Rt breast CA and lung CA - 2 primaries) Cardiac Disorders: Yes (ASHD S/P STENT) CVA: No COPD: Yes (O2 3L NC PRN.) CHF: No Dementia: No Diabetes: No GI Disorders: No Disorders: Yes (uti,renal insuff.) HTN: Yes Hypercholesterolemia: No Liver Disease: No Seizures: No Thyroid Disease: Yes (hypothyroidism, MULTIPLE NODULES) - Surgical History Abdominal Surgery: No Appendectomy: No Cardiac Surgery: Yes (STENT) Cholecystectomy: No Lung Surgery: Yes (LUNG BX, LUNG CA) Neurologic Surgery: No Orthopedic Surgery: Yes (CERVICAL, LUMBAR LAMINECTOMIES) - Immunization History Immunization Up to Date: Yes - Suicide/Smoking/Psychosocial Hx Smoking Status: Yes Smoking History: Former smoker Have you smoked in the past 12 months: No Number of Cigarettes Smoked Daily: 0 If you are a former smoker, when did you quit?: 2015 Cigars Per Day: 0 'Breaking Loose' booklet given: 09/29/14 Hx Alcohol Use: No Drug/Substance Use Hx: No Substance Use Type: None Hx Substance Use Treatment: No <Terrence Kerns I - Last Filed: 06/22/17 23:43> - Past Medical History Allergies/Adverse Reactions: Allergies Allergy/AdvReac Type Severity Reaction Status Date / Time No Known Allergies Allergy Verified 12/18/16 18:56 Home Medications: Ambulatory Orders Citalopram Hydrobromide [Celexa -] 40 mg PO DAILY tablet 08/05/16 Ascorbate Calcium [Vitamin C] 500 mg PO DAILY 12/18/16 Calcium Carbonate [Calcium] 1,000 mg PO Q2D 12/18/16 Carvedilol [Coreg -] 12.5 mg PO BID 12/18/16 Cholecalciferol (Vitamin D3) [Vitamin D3] 4,000 unit PO DAILY 12/18/16 Guaifenesin [Mucinex -] 600 mg PO BID PRN 12/18/16 Hydrocodone/Acetaminophen [Hydrocodon-Acetaminophn 10-325] 1 each PO Q4H PRN Iron 65 mg PO DAILY 12/18/16 Levothyroxine [Synthroid -] 44 mcg PO DAILY 12/18/16 Albuterol 2.5/Ipratropium 0.5 [Duoneb -] 1 amp NEB QIDR amp 12/24/16 Multivitamin [Daily Multiple Vitamin] 1 each PO DAILY 06/22/17 Thiamine HCl [Vitamin B1] 250 mg PO BID 06/22/17 Zinc 50 mg PO BID 06/22/17 Respiratory Specific PMHX - Complaint Specific PMHX Angina: No Pulmonary Embolus: No <Terrence Kerns I - Last Filed: 06/22/17 23:43> *Physical Exam - Vital Signs Last Vital Signs Temp Pulse Resp BP Pulse Ox 134 H 24 181/114 89 L 06/22/17 21:15 06/22/17 21:15 06/22/17 21:15 06/22/17 21:15 <Connor Kay - Last Filed: 06/22/17 21:46> ED Treatment Course - LABORATORY CBC & Chemistry Diagram: 06/22/17 21:30 06/22/17 21:30 <Terrence Kerns I - Last Filed: 06/22/17 23:43> Medical Decision Making - Critical Care Time Total Critical Care Time (minutes): 45 Critical Care Statement: The care of this patient involved high complexity decision making to prevent further life threatening deterioration of the patient 's condition and/or to evaluate & treat vital organ system(s) failure or risk of failure. <Terrence Kerns I - Last Filed: 06/22/17 23:43> *DC/Admit/Observation/Transfer - Attestations Scribe Attestion: Documentation prepared by Connor Kay, acting as senior medical transcriptionist for Terrence Kerns MD. <Connor Kya - Last Filed: 06/22/17 21:46> - Discharge Dispostion Admit: Yes <Terrence Kerns I - Last Filed: 06/22/17 23:43> Diagnosis at time of Disposition: Renal insufficiency COPD (chronic obstructive pulmonary disease) Qualifiers: COPD type: unspecified COPD Qualified Code(s): J44.9 - Chronic obstructive pulmonary disease, unspecified CHF (congestive heart failure) Qualifiers: Heart failure type: unspecified Heart failure chronicity: unspecified Qualified Code(s): I50.9 - Heart failure, unspecified Pneumonia Qualifiers: Pneumonia type: due to unspecified organism - Discharge Dispostion Condition at time of disposition: Stable - Referrals Referrals: Isaiah Thompson MD [Primary Care Provider] - - Patient Instructions - Post Discharge Activity
[2017-06-22 21:51] LABS: HEMATOCRIT 37.3 % (32.4-45.2); HEMOGLOBIN 12.1 GM/dl (10.7-15.3); MCH 29.5 pg (25.7-33.7); MCHC 32.5 g/dl (32.0-36.0); MEAN CELL VOLUME 90.7 fl (80-96); MEAN PLT VOLUME 7.9 fl (7.5-11.1); PLATELET COUNT 448 K/MM3 (134-434); RBC 4.12 M/mm3 (3.60-5.2); RDW 14.3 % (11.6-15.6); WHITE BLOOD COUNT 19.7 K/mm3 (4.0-10.8)
[2017-06-22 22:05] LABS: INR 1.03 (0.82-1.09); PROTHROMBIN TIME (PATIENT) 11.5 SEC (10.2-13.0)
[2017-06-22] MEDS ORDERED: FUROSEMIDE 40 MG/4 ML INJECTABLE VIAL IVPUSH ONE (22:10)
[2017-06-22] MEDS ORDERED: FUROSEMIDE 40 MG/4 ML INJECTABLE VIAL ONE (22:16)
[2017-06-22 22:20] LABS: ALBUMIN 3.1 g/dl (3.5-5.0); ALK PHOS 108 U/L (32-92); ANION GAP 8 (8-16); BILIRUBIN,TOTAL 0.6 mg/dl (0.2-1.0); BLOOD UREA NITROGEN 39 mg/dl (7-18); CALCIUM 8.2 mg/dl (8.4-10.2); CHLORIDE 100 mmol/L (98-107); CO2 28 mmol/L (22-28); CREATININE 2.2 mg/dl (0.6-1.3); GLUCOSE,RANDOM 176 mg/dl (74-106); POTASSIUM 5.2 mmol/L (3.5-5.1); SGOT/AST 26 U/L (10-42); SGPT/ALT 20 U/L (10-40); SODIUM 136 mmol/L (136-145); TOT PROT 7.5 g/dl (6.4-8.3)
[2017-06-22] MEDS ORDERED: KETOROLAC TROMETHAMINE 30 MG/1 ML VIAL IVPUSH ONE (22:25)
[2017-06-22 22:27] LABS: PLATELET ESTIMATE SLT INCREASE
[2017-06-22] MEDS ORDERED: CEFTRIAXONE 1,000 MG in DEXTROSE 5%-WATER - 50 ML IVPB ONE (22:31)
[2017-06-22] MEDS ORDERED: KETOROLAC TROMETHAMINE 30 MG/1 ML VIAL ONE (22:35)
[2017-06-22] MEDS ORDERED: cefTRIAXone SODIUM 1 GM VIAL ONE (22:35)
[2017-06-22 23:08] LABS: ARTERIAL BLOOD GAS pH 7.31 (7.35-7.45)
[2017-06-22 23:09] LABS: ARTERIAL BLD GAS O2 SATURATION 94.3 % (90-98.9); ARTERIAL BLOOD GAS BASE EXCESS -2.3 meq/l (-2-2); ARTERIAL BLOOD GAS PCO2 47.6 mmHg (35-45); ARTERIAL BLOOD GAS PO2 75.9 mmHg (70-100)
[2017-06-22] MEDS ORDERED: AZITHROMYCIN IVPB 500 MG in DEXTROSE 5%-WATER - 250 ML IVPB ONE (23:37)
[2017-06-22] MEDS ORDERED: AZITHROMYCIN 500 MG VIAL IVPB ONE (23:43)
[2017-06-23 01:45] VITALS: BMI 17.2
[2017-06-23] MEDS ORDERED: ALBUTEROL SO4 0.083% IH SOL 2.5 MG/3 ML VIAL.NEB. NEB PRN ×2 (02:21→19:37)
[2017-06-23] MEDS ORDERED: morphine SULFATE 4 MG/ML VIAL IVPUSH ONE (02:35)
--- NOTE | 2017-06-23 03:00 | HP ---
CHIEF COMPLAINT: sob PCP: Dr. Thompson HISTORY OF PRESENT ILLNESS: Patient is a 77 yo F with a PMHx of COPD (3L O2), Lung cancer (remission), Breast cancer(8 years ago), Renal insufficiency, presented at [facility] because of shortness of breath that occurred while she was in a group meeting. She had her O2 with her with no improvement in her breathing. Her then took her to [facility] where the patient was found hypoxic. She also says she was diaphoretic and had a dry cough. Patient says she went to [facility] 3 weeks ago and was discharged on Levaquin for antibiotics for 10 days. Patient said she only felt better but for a short time. Patient denies chest pain, fevers, nausea, vomiting , dysuria, lower extremity swelling, sick contacts, recent travel, diarrhea. ER course was notable for: (1) WBC 19.7, 4.5 Lactic Acid (2) CXR: probable RLL infiltrate (3) Ceftriaxone, Azithromycin Recent Travel: denies PAST MEDICAL HISTORY: A-fib, Lung cancer (remission), breast cancer (8 years ago ), COPD, Anemia, Renal insufficiency, hypothyroidism PAST SURGICAL HISTORY: lumpectomy Social History: Smoking: quit 20 years ago Alcohol: denies Drugs: denies Family History: Allergies No Known Allergies Allergy (Verified 12/18/16 18:56) HOME MEDICATIONS: Home Medications Medication Instructions Recorded Citalopram Hydrobromide [Celexa -] 40 mg PO DAILY tablet 08/05/16 Ascorbate Calcium [Vitamin C] 500 mg PO DAILY 12/18/16 Calcium Carbonate [Calcium] 1,000 mg PO Q2D 12/18/16 Carvedilol [Coreg -] 12.5 mg PO BID 12/18/16 Cholecalciferol (Vitamin D3) 4,000 unit PO DAILY 12/18/16 [Vitamin D3] Guaifenesin [Mucinex -] 600 mg PO BID PRN 12/18/16 Hydrocodone/Acetaminophen 1 each PO Q4H PRN 12/18/16 [Hydrocodon-Acetaminophn 10-325] Iron 65 mg PO DAILY 12/18/16 Levothyroxine [Synthroid -] 44 mcg PO DAILY 12/18/16 Albuterol 2.5/Ipratropium 0.5 1 amp NEB QIDR amp 12/24/16 [Duoneb -] Multivitamin [Daily Multiple 1 each PO DAILY 06/22/17 Vitamin] Thiamine HCl [Vitamin B1] 250 mg PO BID 06/22/17 Zinc 50 mg PO BID 06/22/17 REVIEW OF SYSTEMS CONSTITUTIONAL: diaphoresis Absent: fever, chills, generalized weakness, malaise, loss of appetite, weight change HEENT: Absent: rhinorrhea, nasal congestion, throat pain, throat swelling, difficulty swallowing, mouth swelling, ear pain, eye pain, visual changes CARDIOVASCULAR: Absent: chest pain, syncope, palpitations, irregular heart rate, lightheadedness , peripheral edema RESPIRATORY: cough, sob, Absent: dyspnea with exertion, orthopnea, wheezing, stridor, hemoptysis GASTROINTESTINAL: Absent: abdominal pain, abdominal distension, nausea, vomiting, diarrhea, constipation, melena, hematochezia GENITOURINARY: Absent: dysuria, frequency, urgency, hesitancy, hematuria, flank pain, genital pain SKIN: Absent: rash, itching, pallor NEUROLOGIC: Absent: headache, focal weakness or paresthesias, dizziness, unsteady gait, seizure, mental status changes PSYCHIATRIC: Absent: anxiety, depression, suicidal or homicidal ideation, hallucinations. PHYSICAL EXAMINATION Vital Signs - 24 hr 06/22/17 06/22/17 06/22/17 21:15 22:00 23:00 Temperature 99.1 F Pulse Rate 134 H Pulse Rate [ 109 H 104 H Apical] Respiratory 24 28 H 22 Rate Blood Pressure 181/114 Blood Pressure 154/81 107/85 [Arm] O2 Sat by Pulse 89 L 95 94 L Oximetry (%) 06/22/17 06/23/17 06/23/17 23:05 00:00 01:37 Temperature 97.4 F L Pulse Rate 100 H Pulse Rate [ 106 H Apical] Respiratory 22 21 Rate Blood Pressure 131/80 Blood Pressure 126/76 [Arm] O2 Sat by Pulse 97 98 Oximetry (%) 06/23/17 01:46 Temperature Pulse Rate Pulse Rate [ Apical] Respiratory Rate Blood Pressure Blood Pressure [Arm] O2 Sat by Pulse 100 Oximetry (%) GENERAL: On Bipap, appears comfortable, no acute distress HEAD: Normal with no signs of trauma. EYES: Pextraocular movements intact, sclera anicteric, conjunctiva clear. EARS, NOSE, THROAT: oropharynx clear without exudates. Moist mucous membranes. NECK: supple without lymphadenopathy, JVD, or masses, left sided chemoport LUNGS: decreased breath sounds at bases. no wheezing, or crackles HEART: tachy, 3/6 Systolic murmur DOREEN ABDOMEN: Soft, nontender, not distended, normoactive bowel sounds, no guarding, no rebound, no masses. UPPER EXTREMITIES: 2+ pulses, L thumb amputation, No peripheral edema. LOWER EXTREMITIES: 2+ pulses, warm,No calf tenderness. No peripheral edema. Skin tears b/l NEUROLOGICAL: Cranial nerves II-XII intact. Normal speech. Normal gait. PSYCHIATRIC: Cooperative. Good eye contact. Appropriate mood and affect. Skin: Poor skin turgor Laboratory Results - last 24 hr 06/22/17 06/22/17 06/22/17 21:30 21:30 21:30 WBC 19.7 H D RBC 4.12 D Hgb 12.1 D Hct 37.3 D MCV 90.7 MCH 29.5 D MCHC 32.5 RDW 14.3 D Plt Count 448 H MPV 7.9 Neutrophils % No Result Required. Neutrophils % (Manual) 72.0 Band Neutrophils % 3.0 Lymphocytes % No Result Required. Lymphocytes % (Manual) 18.0 Monocytes % (Manual) 5 Eosinophils % (Manual) 2.0 Platelet Estimate Slt increase Platelet Comment Moderate large plts. PT with INR 11.5 INR 1.03 Anticoagulation Therapy Puncture Site ABG pH ABG pCO2 at Pt Temp ABG pO2 at Pt Temp ABG HCO3 ABG O2 Sat (Measured) ABG O2 Content ABG Base Excess Parrish Test O2 Delivery Device Oxygen Flow Rate Vent Mode Vent Rate Mechanical Rate Pressure Support Vent Sodium 136 Potassium 5.2 H Chloride 100 Carbon Dioxide 28 Anion Gap 8 BUN 39 H D Creatinine 2.2 H Creat Clearance w eGFR 21.64 Random Glucose 176 H D Lactic Acid Calcium 8.2 L Total Bilirubin 0.6 D AST 26 ALT 20 Alkaline Phosphatase 108 H D Creatine Kinase Creatine Kinase Index CK-MB (CK-2) Troponin I B-Natriuretic Peptide Total Protein 7.5 Albumin 3.1 L 06/22/17 06/22/17 06/22/17 21:30 21:30 21:47 WBC RBC Hgb Hct MCV MCH MCHC RDW Plt Count MPV Neutrophils % Neutrophils % (Manual) Band Neutrophils % Lymphocytes % Lymphocytes % (Manual) Monocytes % (Manual) Eosinophils % (Manual) Platelet Estimate Platelet Comment PT with INR INR Anticoagulation Therapy No Result Required. Puncture Site No Result Required. ABG pH 7.31 L ABG pCO2 at Pt Temp 47.6 H ABG pO2 at Pt Temp 75.9 D ABG HCO3 23.7 ABG O2 Sat (Measured) 94.3 ABG O2 Content No Result Required. ABG Base Excess -2.3 L Parrish Test No Result Required. O2 Delivery Device No Result Required. Oxygen Flow Rate No Result Required. Vent Mode No Result Required. Vent Rate No Result Required. Mechanical Rate No Result Required. Pressure Support Vent No Result Required. Sodium Potassium Chloride Carbon Dioxide Anion Gap BUN Creatinine Creat Clearance w eGFR Random Glucose Lactic Acid Calcium Total Bilirubin AST ALT Alkaline Phosphatase Creatine Kinase 154 Creatine Kinase Index 1.4 CK-MB (CK-2) 2.3 Troponin I 0.03 B-Natriuretic Peptide Total Protein Albumin 06/22/17 06/22/17 21:50 21:50 WBC RBC Hgb Hct MCV MCH MCHC RDW Plt Count MPV Neutrophils % Neutrophils % (Manual) Band Neutrophils % Lymphocytes % Lymphocytes % (Manual) Monocytes % (Manual) Eosinophils % (Manual) Platelet Estimate Platelet Comment PT with INR INR Anticoagulation Therapy Puncture Site ABG pH ABG pCO2 at Pt Temp ABG pO2 at Pt Temp ABG HCO3 ABG O2 Sat (Measured) ABG O2 Content ABG Base Excess Parrish Test O2 Delivery Device Oxygen Flow Rate Vent Mode Vent Rate Mechanical Rate Pressure Support Vent Sodium Potassium Chloride Carbon Dioxide Anion Gap BUN Creatinine Creat Clearance w eGFR Random Glucose Lactic Acid 4.5 H* Calcium Total Bilirubin AST ALT Alkaline Phosphatase Creatine Kinase Creatine Kinase Index CK-MB (CK-2) Troponin I B-Natriuretic Peptide 20829.09 H Total Protein Albumin ASSESSMENT/PLAN: Patient is a 77 yo F with a PMHx of A-fib, COPD (3 L O2), Lung Cancer(in remission), Breast cancer, Renal insufficiency, presented with acute hypoxic respiratory failure. #Severe Sepsis 2/2 CAP -CXR: probable RLL infiltrate -WBC 19.7 -UCx,Bcx,Sputum Cx -Repeat Lactic, 1st set: 4.5 -Case discussed w/ ICU AUCTIONEER ART, does not advise Lasix, and IV fluids (BP stable) -IV abx: cont. Ceftriaxone, Azithromycin -FU Am labs #Acute Hypoxic respiratory failure -Likely secondary to CAP, r/o CHF -Duonebs PRN, Albuterol -BiPap -ECHO in AM, 06/13 echo:65% EF -BNP 42209 -Daily weights/ I/O's -Keep O2 Sat>90% -Pulm Consulted: Dr. Almazan #Hyperkalemia -No T wave changes on EKG -1x Lasix given in ED -FU am CMP #FRANK vs CKD stage IV -Cr. 2.2 -avoid nephrotoxins -urine lytes, urine cr -monitor #Hypothyroidism -cont. Levothyroxine 44mcg #A-fib -cont. Coreg 12.5 BID #FEN -No fluids at this time -hyperkalemia. will monitor -Renal diet #DVT -Hep SQ TID ICU Visit type - Emergency Visit Emergency Visit: Yes ED Registration Date: 06/22/17 Care time: The patient presented to the Emergency Department on the above date and was hospitalized for further evaluation of their emergent condition. - New Patient This patient is new to me today: Yes Date on this admission: 06/23/17 - Critical Care Critical Care patient: Yes Total Critical Care Time (in minutes): 45 Critical Care Statement: The care of this patient involved high complexity decision making to prevent further life threatening deterioration of the patient 's condition and/or to evaluate & treat vital organ system(s) failure or risk of failure. Hospitalist Screening - Colonoscopy Questionnaire Colonoscopy Questionnaire: Colonoscopy Questionnaire - Patient: 50 - 75 years old and never had a screening colonoscopy: Unknown History of colon or rectal polyps, or CA: Unknown History of IBD, Crohn's disease or UC: Unknown History of abdominal radiation therapy as a child: Unknown - Relative: 1 with colon or rectal CA, or polyps at age 60 or younger: Unknown Colon or rectal CA diagnosed at age 45 or younger: Unknown Multiple relatives with colon or rectal CA: Unknown - Outcome: Screening Result: Negative Screen
--- NOTE | 2017-06-23 05:19 | CONSULT ---
Consult Consult Specialty:: Pulmonary Critical Care Reason for Consultation:: Respiratory failure - History of Present Illness Chief Complaint: SOB History of Present Illness: Pt is a 77 yo female with h/o afib, COPD (home o2 3L), lung Ca (in remission), Breast Ca, CKD (baseline Cr ~2) who was brought to [facility] ED on 06/22 for evaluation of SOB. Pt was recently admitted to [facility] and was has completed a course of levaquin for possible CAP. In ED labs notable for WBC 19.7, Cr 2.2, lactate 4.5, BNP 29332, ABG 7.31/48/76 on BiPAP with FiO2 of 35%. Hemodynamically stable. She was started on Ceftriaxone and given a dose of lasix. She was then transferred to [facility] ICU for further management. Active Medications Albuterol Sulfate (Ventolin 0.083% Nebulizer Soln -) 1 amp NEB Q4H PRN PRN Reason: SHORT OF BREATH/WHEEZING Albuterol/Ipratropium (Duoneb -) 1 amp NEB RQID [facility] Ascorbic Acid (Vitamin C -) 500 mg PO DAILY [facility] Calcium Carbonate (Os-Ced 500mg -) 1,000 mg PO Q2D@1000 [facility] Carvedilol (Coreg -) 12.5 mg PO BID [facility] Chlorhexidine Gluconate (Hibiclens For Decolonization -) 1 applic TP HS [facility] Cholecalciferol (Vitamin D3 -) 4,000 unit PO DAILY [facility] Citalopram Hydrobromide (Celexa -) 40 mg PO DAILY [facility] Ferrous Sulfate (Feosol -) 325 mg PO DAILY [facility] Heparin Sodium (Porcine) (Heparin -) 5,000 unit SQ TID [facility] Azithromycin 500 mg/ Dextrose 250 mls @ 250 mls/hr IVPB DAILY [facility] Ceftriaxone Sodium 1 gm/ (Dextrose) 50 mls @ 100 mls/hr IVPB DAILY [facility] Levothyroxine Sodium (Synthroid -) 44 mcg PO DAILY@0700 [facility] Multivitamins/Minerals/Vitamin C (Tab-A-Vit -) 1 tab PO DAILY [facility] Mupirocin (Bactroban Ointment (For Decolonization) -) 1 applic NS BID NUR[facility] Stop: 06/28/17 09:59 Thiamine HCl (Vitamin B1 -) 250 mg PO BID N[facility] Zinc Sulfate (Orazinc -) 220 mg PO BID NUR[facility] - Past Medical History Cardio/Vascular: Yes: Aortic Stenosis, CAD (with coronary stenting), HTN, Hyperlipdemia, Mitral Insufficiency, Pulmonary Hypertension Pulmonary: Yes: Cancer (Chemothrerapy for small cell carcinoma- Dr Simpson), COPD Gastrointestinal: Yes: Diverticulosis, Other (Breast lumpectomy) Renal/: Yes: Renal Failure, Renal Inusuff ...: No Psych: Yes: Anxiety Musculoskeletal: Yes: Chronic low back pain, Osteoarthritis Endocrine: Yes: Hypothyroidism, Osteopenia - Past Surgical History Past Surgical History: Yes: Laminectomy (cervical , lumbar ), Stent, Tonsillectomy, Tubal Ligation - Alcohol/Substance Use Hx Alcohol Use: No Date of Last Use: 02/27/81 - Smoking History Smoking history: Former smoker Have you smoked in the past 12 months: No Aproximately how many cigarettes per day: 0 If you are a former smoker, when did you quit?: 2014 - Social History Usual Living Arrangement: With Spouse ADL: Independent 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 History of Recent Travel: No Home Medications - Allergies Allergies/Adverse Reactions: Allergies Allergy/AdvReac Type Severity Reaction Status Date / Time No Known Allergies Allergy Verified 12/18/16 18:56 - Home Medications Home Medications: Ambulatory Orders Citalopram Hydrobromide [Celexa -] 40 mg PO DAILY tablet 08/05/16 Ascorbate Calcium [Vitamin C] 500 mg PO DAILY 12/18/16 Calcium Carbonate [Calcium] 1,000 mg PO Q2D 12/18/16 Carvedilol [Coreg -] 12.5 mg PO BID 12/18/16 Cholecalciferol (Vitamin D3) [Vitamin D3] 4,000 unit PO DAILY 12/18/16 Guaifenesin [Mucinex -] 600 mg PO BID PRN 12/18/16 Hydrocodone/Acetaminophen [Hydrocodon-Acetaminophn 10-325] 1 each PO Q4H PRN Iron 65 mg PO DAILY 12/18/16 Levothyroxine [Synthroid -] 44 mcg PO DAILY 12/18/16 Albuterol 2.5/Ipratropium 0.5 [Duoneb -] 1 amp NEB QIDR amp 12/24/16 Multivitamin [Daily Multiple Vitamin] 1 each PO DAILY 06/22/17 Thiamine HCl [Vitamin B1] 250 mg PO BID 06/22/17 Zinc 50 mg PO BID 06/22/17 Family Disease History - Family Disease History Family Disease History: CA: Father (diffuse unknown primary), Sister ( of lung cancer), Other: Mother ( after hip fracture) Physical Exam Vital Signs: Vital Signs Temperature 97.4 F L 06/23/17 01:37 Pulse Rate 100 H 06/23/17 01:37 Respiratory Rate 21 06/23/17 01:37 Blood Pressure 131/80 06/23/17 01:37 O2 Sat by Pulse Oximetry (%) 100 06/23/17 02:30 Cardiovascular: Yes: Regular Rate and Rhythm Respiratory: Yes: Regular. No: Wheezes Gastrointestinal: Yes: WNL Edema: No Neurological: Yes: WNL Labs: CBC, BMP 06/22/17 21:30 06/22/17 21:30 Imaging - Results Chest X-ray: Image Reviewed Problem List - Problems (1) CHF (congestive heart failure) Code(s): I50.9 - HEART FAILURE, UNSPECIFIED Qualifiers: Heart failure type: unspecified Heart failure chronicity: unspecified Qualified Code(s): I50.9 - Heart failure, unspecified (2) COPD (chronic obstructive pulmonary disease) Code(s): J44.9 - CHRONIC OBSTRUCTIVE PULMONARY DISEASE, UNSPECIFIED Qualifiers: COPD type: unspecified COPD Qualified Code(s): J44.9 - Chronic obstructive pulmonary disease, unspecified (3) Pneumonia Code(s): J18.9 - PNEUMONIA, UNSPECIFIED ORGANISM Qualifiers: Pneumonia type: due to unspecified organism (4) Renal insufficiency Code(s): N28.9 - DISORDER OF KIDNEY AND URETER, UNSPECIFIED (5) Acute on chronic renal failure Code(s): N17.9 - ACUTE KIDNEY FAILURE, UNSPECIFIED; N18.9 - CHRONIC KIDNEY DISEASE, UNSPECIFIED Qualifiers: Acute renal failure type: unspecified Chronic kidney disease stage: unspecified stage Qualified Code(s): N17.9 - Acute kidney failure, unspecified Assessment/Plan Respiratory insufficiency possibly in the setting of fluid overload vs PNA vs COPD exacerbation CKD (Cr at baseline) Elevated lactate (resolved) Elevated BNP Hypothyroidism -wean off BiPAP -supplemental O2 as needed (pt on home O2) -nebs prn -diurese for net out -TTE -no fluids -send respiratory swab and sputum sample if able -cont Ceftriaxone/Azithro though low threshold to escalate to Zosyn/Vanco given recent hospitalization -trend BNP -cont synthroid -heparin subQ BRIDGER Trevino Critical Care time: 35 min
--- NOTE | 2017-06-23 06:07 | PN ---
Teaching Attending Note Name of Resident: Elizabeth Gant ATTENDING PHYSICIAN STATEMENT I saw and evaluated the patient. I reviewed the resident's note and discussed the case with the resident. I agree with the resident's findings and plan as documented. SUBJECTIVE: 77 F presented to ED c/o SOB, patient has a h/o , COPD of home o2, Lung cancer and h/o Breast cancer and CKD stg 4. Patient recently seen treated at [facility]. OBJECTIVE: GEN: A&Ox3 in mild distress HEENT: NC, AT, PERRLA, EOMI CVS: left sided chemoport, RRR, 2nd R ICS systolic murmur Lungs: CTA, no wheezing, or rhonchi Abd: soft, NT, BS+ Ext: left 1st digit amputated CBCD WBC 19.7 K/mm3 (4.0-10.8) H D 06/22/17 21:30 RBC 4.12 M/mm3 (3.60-5.2) D 06/22/17 21:30 Hgb 12.1 GM/dl (10.7-15.3) D 06/22/17 21:30 Hct 37.3 % (32.4-45.2) D 06/22/17 21: MCV 90.7 fl (80-96) 06/22/17 21:30 MCHC 32.5 g/dl (32.0-36.0) 06/22/17 21: RDW 14.3 % (11.6-15.6) D 06/22/17 21: Plt Count 448 K/MM3 (134-434) H 06/22/17 21:30 MPV 7.9 fl (7.5-11.1) 06/22/17 21:30 CMP Sodium 136 mmol/L (136-145) 06/22/17 21:30 Potassium 5.2 mmol/L (3.5-5.1) H 06/22/17 21: Chloride 100 mmol/L (98-107) 06/22/17 21: Carbon Dioxide 28 mmol/L (22-28) 06/22/17 21:30 Anion Gap 8 (8-16) 06/22/17 21:30 BUN 39 mg/dl (7-18) H D 06/22/17 21:30 Creatinine 2.2 mg/dl (0.6-1.3) H 06/22/17 21:30 Creat Clearance w eGFR 21.64 (>60) 06/22/17 21:30 Random Glucose 176 mg/dl (74-106) H D 06/22/17 21:30 Calcium 8.2 mg/dl (8.4-10.2) L 06/22/17 21:30 Total Bilirubin 0.6 mg/dl (0.2-1.0) D 06/22/17 21:30 AST 26 U/L (10-42) 06/22/17 21:30 ALT 20 U/L (10-40) 06/22/17 21:30 Alkaline Phosphatase 108 U/L (32-92) H D 06/22/17 21:30 Total Protein 7.5 g/dl (6.4-8.3) 06/22/17 21:30 Albumin 3.1 g/dl (3.5-5.0) L 06/22/17 21:30 CARDIAC ENZYMES Creatine Kinase 154 IU/L (26-192) 06/22/17 21:30 Troponin I 0.03 ng/ml (0.00-0.06) 06/22/17 21:30 ASSESSMENT AND PLAN: Ac Hypoxic respiratory failure secondary to Pneumonia , r/o CHF severe sepsis with lactic acidosis Ceftriaxone and azithromycin Neb q6h Bipap 35% now switched to 2L nc ECHO DVT prophylaxis
[2017-06-23 06:32] LABS: HEMATOCRIT 29.7 % (32.4-45.2); HEMOGLOBIN 10.1 GM/dL (10.7-15.3); MCH 30.5 pg (25.7-33.7); MCHC 33.9 g/dl (32.0-36.0); MEAN CELL VOLUME 90.1 fl (80-96); MEAN PLT VOLUME 7.9 fl (7.5-11.1); PLATELET COUNT 263 K/MM3 (134-434); RBC 3.29 M/mm3 (3.60-5.2); RDW 14.3 % (11.6-15.6); WHITE BLOOD COUNT 9.6 K/mm3 (4.0-10.0)
[2017-06-23 06:42] LABS: INR 1.01 (0.82-1.09); PROTHROMBIN TIME (PATIENT) 11.4 SEC (9.7-13.0)
[2017-06-23] MEDS: HEPARIN NA (PORCINE) 5,000 UNITS/ML 1ML VIAL SQ SCH ×3 (06:55→21:42)
[2017-06-23 06:58] LABS: ALBUMIN 2.6 g/dl (3.4-5.0); ANION GAP 2 (8-16); BLOOD UREA NITROGEN 43 mg/dL (7-18); CALCIUM 7.5 mg/dL (8.5-10.1); CHLORIDE 105 mmol/L (98-107); CO2 32 mmol/L (21-32); GLUCOSE,RANDOM 90 mg/dL (74-106); MAGNESIUM 2.9 mg/dL (1.8-2.4); POTASSIUM 5.2 mmol/L (3.5-5.1); SODIUM 139 mmol/L (136-145)
[2017-06-23] MEDS ORDERED: LEVOTHYROXINE NA 88 MCG TABLET (FP) PO SCH (07:00)
[2017-06-23 07:02] LABS: ALK PHOS 114 U/L (45-117); BILIRUBIN,TOTAL 0.3 mg/dL (0.2-1.0); CREATININE 2.3 mg/dL (0.55-1.02); PHOSPHOROUS 3.9 mg/dL (2.5-4.9); SGOT/AST 24 U/L (15-37); SGPT/ALT 23 U/L (12-78); TOT PROT 6.7 g/dl (6.4-8.2)
[2017-06-23] MEDS: ALBUTEROL SO4 2.5/IPRATROPIUM 0.5 INH SOL 3 ML VIAL.NEB. NEB SCH ×4 (08:10→20:50)
[2017-06-23] MEDS ORDERED: cefTRIAXone SODIUM 1 GM VIAL ONE (09:11)
[2017-06-23] MEDS ORDERED: DEXTROSE 5%-WATER - 50 ML IVPB ONE (09:11)
--- NOTE | 2017-06-23 09:23 | PN ---
Progress Note, Physician History of Present Illness: SUDDEN ONSET OF SOB YESTERDAY ON BIPAP FEELS BETTER - Current Medication List Current Medications: Active Medications Albuterol Sulfate (Ventolin 0.083% Nebulizer Soln -) 1 amp NEB Q4H PRN PRN Reason: SHORT OF BREATH/WHEEZING Albuterol/Ipratropium (Duoneb -) 1 amp NEB RQID [facility] Last Admin: 06/23/17 08:10 Dose: 1 amp Ascorbic Acid (Vitamin C -) 500 mg PO DAILY [facility] Calcium Carbonate (Os-Ced 500mg -) 1,000 mg PO Q2D@1000 [facility] Carvedilol (Coreg -) 12.5 mg PO BID [facility] Chlorhexidine Gluconate (Hibiclens For Decolonization -) 1 applic TP HS [facility] Cholecalciferol (Vitamin D3 -) 4,000 unit PO DAILY [facility] Citalopram Hydrobromide (Celexa -) 40 mg PO DAILY [facility] Ferrous Sulfate (Feosol -) 325 mg PO DAILY [facility] Heparin Sodium (Porcine) (Heparin -) 5,000 unit SQ TID [facility] Last Admin: 06/23/17 06:55 Dose: 5,000 unit Azithromycin 500 mg/ Dextrose 250 mls @ 250 mls/hr IVPB DAILY [facility] Ceftriaxone Sodium 1 gm/ (Dextrose) 50 mls @ 100 mls/hr IVPB DAILY [facility] Levothyroxine Sodium (Synthroid -) 44 mcg PO DAILY@0700 [facility] Last Admin: 06/23/17 06:55 Dose: 44 mcg Multivitamins/Minerals/Vitamin C (Tab-A-Vit -) 1 tab PO DAILY [facility] Mupirocin (Bactroban Ointment (For Decolonization) -) 1 applic NS BID [facility] Stop: 06/28/17 09:59 Thiamine HCl (Vitamin B1 -) 250 mg PO BID [facility] Zinc Sulfate (Orazinc -) 220 mg PO BID [facility] - Objective Vital Signs: Vital Signs Temperature 98.7 F 06/23/17 08:00 Pulse Rate 99 H 06/23/17 08:00 Respiratory Rate 20 06/23/17 08:00 Blood Pressure 133/69 06/23/17 08:00 O2 Sat by Pulse Oximetry (%) 100 06/23/17 08:29 Cardiovascular: Yes: Murmur, S1, S2 Respiratory: Yes: Diminished, On BiPap, Rales Gastrointestinal: Yes: Normal Bowel Sounds, Soft. No: Tenderness Edema: No Labs: CBC, BMP 06/23/17 05:00 06/23/17 05:00 INR, PTT INR 1.01 (0.82-1.09) 06/23/17 05:00 Problem List - Problems (1) COPD (chronic obstructive pulmonary disease) Assessment/Plan: -IV STEROIDS -NEBS -BIPAP -PULM Code(s): J44.9 - CHRONIC OBSTRUCTIVE PULMONARY DISEASE, UNSPECIFIED Qualifiers: COPD type: unspecified COPD Qualified Code(s): J44.9 - Chronic obstructive pulmonary disease, unspecified (2) CHF (congestive heart failure) Assessment/Plan: -NO EVIDENCE OF FAILURE -CARDIO -ECHO Code(s): I50.9 - HEART FAILURE, UNSPECIFIED Qualifiers: Heart failure type: unspecified Heart failure chronicity: unspecified Qualified Code(s): I50.9 - Heart failure, unspecified (3) Pneumonia Assessment/Plan: -WILL DO CT SCAN TO R/O ANY CONSOLIDATION Code(s): J18.9 - PNEUMONIA, UNSPECIFIED ORGANISM Qualifiers: Pneumonia type: due to unspecified organism (4) CKD (chronic kidney disease) Assessment/Plan: ACUTE ON CHRONIC -MONITOR Code(s): N18.9 - CHRONIC KIDNEY DISEASE, UNSPECIFIED
[2017-06-23] MEDS: oxyCODONE HCL 5 MG TABLET PO PRN ×3 (09:40→21:43)
[2017-06-23] MEDS ORDERED: CARVEDILOL 12.5 MG TABLET (FP) PO SCH ×2 (10:00)
[2017-06-23] MEDS ORDERED: FERROUS SO4 325 MG TABLET (FP) PO SCH (10:00)
[2017-06-23] MEDS ORDERED: CEFTRIAXONE 1 GM in DEXTROSE 5%-WATER - 50 ML IVPB SCH (10:00)
[2017-06-23] MEDS ORDERED: ZINC SULFATE 220 MG CAPSULE (FP) PO SCH (10:00)
[2017-06-23] MEDS ORDERED: MULTIVITAMINS (DAILY MVI) TABLET (FP) PO SCH (10:00)
[2017-06-23] MEDS ORDERED: ASCORBIC ACID 500 MG TABLET (FP) PO SCH (10:00)
[2017-06-23] MEDS ORDERED: CHOLECALCIFEROL (VITAMIN D3) 1,000 UNIT TABLET (FP) PO SCH (10:00)
[2017-06-23] MEDS ORDERED: MUPIROCIN 2% TOPICAL OINTMENT FOR DECOLONIZATION NS SCH (10:00)
[2017-06-23] MEDS ORDERED: CALCIUM (OYSTER SHELL) 500 MG TABLET (FP) PO SCH (10:00)
[2017-06-23] MEDS ORDERED: CITALOPRAM HYDROBROMIDE 20 MG TABLET (FP) PO SCH (10:00)
[2017-06-23] MEDS ORDERED: AZITHROMYCIN IVPB 500 MG in DEXTROSE 5%-WATER - 250 ML IVPB SCH (10:00)
[2017-06-23] MEDS ORDERED: THIAMINE HCL 100 MG TABLET (FP) PO SCH (10:00)
--- NOTE | 2017-06-23 10:02 | EKG ---
Test Reason : Blood Pressure : / mmHG Vent. Rate : 129 BPM Atrial Rate : 129 BPM P-R Int : 128 ms QRS Dur : 128 ms QT Int : 294 ms P-R-T Axes : 068 000 083 degrees QTc Int : 430 ms POOR DATA QUALITY, INTERPRETATION MAY BE ADVERSELY AFFECTED SINUS TACHYCARDIA NON-SPECIFIC INTRA-VENTRICULAR CONDUCTION BLOCK CANNOT RULE OUT ANTEROSEPTAL INFARCT , AGE UNDETERMINED ABNORMAL ECG WHEN COMPARED WITH ECG OF 18-DEC-2016 18:40, SIGNIFICANT CHANGES HAVE OCCURRED Confirmed by RICARDO THOMPSON MD ([id number]) on 06/23/2017 10:01:54 AM Referred By: CONCETTA Confirmed By:RICARDO THOMPSON MD
[2017-06-23 10:58] LABS: URINE APPEARANCE CLEAR; URINE BILIRUBIN NEGATIVE (<2.0 mg/dL); URINE COLOR LTYELLOW; URINE GLUCOSE (UA) NEGATIVE (NEGATIVE); URINE KETONE NEGATIVE (NEGATIVE); URINE LEUK ESTERASE NEGATIVE (NEGATIVE); URINE NITRITE NEGATIVE (NEGATIVE); URINE PROTEIN NEGATIVE (NEGATIVE); URINE UROBILINOGEN NEGATIVE mg/dL (0.2-1.0)
--- NOTE | 2017-06-23 11:14 | PN ---
Teaching Attending Note Name of Resident: Clyde Alanis ATTENDING PHYSICIAN STATEMENT I saw and evaluated the patient. I reviewed the resident's note and discussed the case with the resident. I agree with the resident's findings and plan as documented. SUBJECTIVE: Patient seen and examined in the ICU. Awake and alert on NIPPV. Denies CP. Reports breathing is better on NIPPV. Afebrile. WBC normal this AM. No hemoptysis. Intake & Output 06/20/17 06/21/17 06/22/17 06/23/17 23:59 23:59 23:59 23:59 Intake Total 650 Output Total 200 Balance 450 Weight 105 lb 103 lb 4 oz Last Vital Signs Temp Pulse Resp BP Pulse Ox 98.9 F 83 20 127/74 100 06/23/17 10:00 06/23/17 10:00 06/23/17 10:00 06/23/17 10:00 06/23/17 08:29 Active Medications Albuterol Sulfate (Ventolin 0.083% Nebulizer Soln -) 1 amp NEB Q4H PRN PRN Reason: SHORT OF BREATH/WHEEZING Albuterol/Ipratropium (Duoneb -) 1 amp NEB RQID [facility] Last Admin: 06/23/17 08:10 Dose: 1 amp Ascorbic Acid (Vitamin C -) 500 mg PO DAILY [facility] Last Admin: 06/23/17 09:22 Dose: 500 mg Calcium Carbonate (Os-Ced 500mg -) 1,000 mg PO Q2D@1000 [facility] Carvedilol (Coreg -) 12.5 mg PO BID [facility] Last Admin: 06/23/17 09:24 Dose: 12.5 mg Chlorhexidine Gluconate (Hibiclens For Decolonization -) 1 applic TP HS [facility] Cholecalciferol (Vitamin D3 -) 4,000 unit PO DAILY [facility] Last Admin: 06/23/17 09:22 Dose: 4,000 unit Citalopram Hydrobromide (Celexa -) 40 mg PO DAILY [facility] Last Admin: 06/23/17 09:24 Dose: 40 mg Ferrous Sulfate (Feosol -) 325 mg PO DAILY [facility] Last Admin: 06/23/17 09:22 Dose: 325 mg Heparin Sodium (Porcine) (Heparin -) 5,000 unit SQ TID [facility] Last Admin: 06/23/17 06:55 Dose: 5,000 unit Azithromycin 500 mg/ Dextrose 250 mls @ 250 mls/hr IVPB DAILY [facility] Ceftriaxone Sodium 1 gm/ (Dextrose) 50 mls @ 100 mls/hr IVPB DAILY [facility] Last Admin: 06/23/17 09:25 Dose: 100 mls/hr Levothyroxine Sodium (Synthroid -) 44 mcg PO DAILY@0700 [facility] Last Admin: 06/23/17 06:55 Dose: 44 mcg Methylprednisolone Sodium Succinate (Solu-Medrol -) 40 mg IVPUSH Q6H-IV [facility] Multivitamins/Minerals/Vitamin C (Tab-A-Vit -) 1 tab PO DAILY [facility] Last Admin: 06/23/17 09:21 Dose: 1 tab Mupirocin (Bactroban Ointment (For Decolonization) -) 1 applic NS BID [facility] Stop: 06/28/17 09:59 Last Admin: 06/23/17 09:24 Dose: 1 applic Oxycodone HCl (Roxicodone -) 10 mg PO Q6H PRN PRN Reason: PAIN LEVEL 6-10 Thiamine HCl (Vitamin B1 -) 250 mg PO BID [facility] Last Admin: 06/23/17 09:20 Dose: 250 mg Zinc Sulfate (Orazinc -) 220 mg PO BID [facility] Last Admin: 06/23/17 09:24 Dose: 220 mg General: Awake and alert on NIPPV Cardiovascular: Yes: Regular Rate and Rhythm Respiratory: Yes: NIPPV support, bilateral crackles, I:E markedly prolonged Gastrointestinal: Yes: WNL Edema: No Neurological: Yes: WNL Labs: Laboratory Results - last 24 hr 06/22/17 06/22/17 06/22/17 06:30 21:30 21:30 WBC 19.7 H D RBC 4.12 D Hgb 12.1 D Hct 37.3 D MCV 90.7 MCH 29.5 D MCHC 32.5 RDW 14.3 D Plt Count 448 H MPV 7.9 Neutrophils % No Result Required. Neutrophils % (Manual) 72.0 Band Neutrophils % 3.0 Lymphocytes % No Result Required. Lymphocytes % (Manual) 18.0 Monocytes % (Manual) 5 Eosinophils % (Manual) 2.0 Platelet Estimate Slt increase Platelet Comment Moderate large plts. PT with INR 11.5 INR 1.03 Anticoagulation Therapy Puncture Site ABG pH ABG pCO2 at Pt Temp ABG pO2 at Pt Temp ABG HCO3 ABG O2 Sat (Measured) ABG O2 Content ABG Base Excess Parrish Test O2 Delivery Device Oxygen Flow Rate Vent Mode Vent Rate Mechanical Rate Pressure Support Vent Sodium Potassium Chloride Carbon Dioxide Anion Gap BUN Creatinine Creat Clearance w eGFR Random Glucose Lactic Acid Calcium Phosphorus Magnesium Total Bilirubin AST ALT Alkaline Phosphatase Creatine Kinase Creatine Kinase Index CK-MB (CK-2) Troponin I B-Natriuretic Peptide Total Protein Albumin Urine Color Ltyellow Urine Appearance Clear Urine pH 6.0 Ur Specific [place] 1.011 Urine Protein Negative Urine Glucose (UA) Negative Urine Ketones Negative Urine Blood Negative Urine Nitrite Negative Urine Bilirubin Negative Urine Urobilinogen Negative Ur Leukocyte Esterase Negative Ur Random Sodium Ur Random Potassium Ur Random Chloride Urine Creatinine 06/22/17 06/22/17 06/22/17 21:30 21:30 21:30 WBC RBC Hgb Hct MCV MCH MCHC RDW Plt Count MPV Neutrophils % Neutrophils % (Manual) Band Neutrophils % Lymphocytes % Lymphocytes % (Manual) Monocytes % (Manual) Eosinophils % (Manual) Platelet Estimate Platelet Comment PT with INR INR Anticoagulation Therapy Puncture Site ABG pH ABG pCO2 at Pt Temp ABG pO2 at Pt Temp ABG HCO3 ABG O2 Sat (Measured) ABG O2 Content ABG Base Excess Parrish Test O2 Delivery Device Oxygen Flow Rate Vent Mode Vent Rate Mechanical Rate Pressure Support Vent Sodium 136 Potassium 5.2 H Chloride 100 Carbon Dioxide 28 Anion Gap 8 BUN 39 H D Creatinine 2.2 H Creat Clearance w eGFR 21.64 Random Glucose 176 H D Lactic Acid Calcium 8.2 L Phosphorus Magnesium Total Bilirubin 0.6 D AST 26 ALT 20 Alkaline Phosphatase 108 H D Creatine Kinase 154 Creatine Kinase Index 1.4 CK-MB (CK-2) 2.3 Troponin I 0.03 B-Natriuretic Peptide Total Protein 7.5 Albumin 3.1 L Urine Color Urine Appearance Urine pH Ur Specific [place] Urine Protein Urine Glucose (UA) Urine Ketones Urine Blood Urine Nitrite Urine Bilirubin Urine Urobilinogen Ur Leukocyte Esterase Ur Random Sodium Ur Random Potassium Ur Random Chloride Urine Creatinine 06/22/17 06/22/17 06/22/17 21:47 21:50 21:50 WBC RBC Hgb Hct MCV MCH MCHC RDW Plt Count MPV Neutrophils % Neutrophils % (Manual) Band Neutrophils % Lymphocytes % Lymphocytes % (Manual) Monocytes % (Manual) Eosinophils % (Manual) Platelet Estimate Platelet Comment PT with INR INR Anticoagulation Therapy No Result Required. Puncture Site No Result Required. ABG pH 7.31 L ABG pCO2 at Pt Temp 47.6 H ABG pO2 at Pt Temp 75.9 D ABG HCO3 23.7 ABG O2 Sat (Measured) 94.3 ABG O2 Content No Result Required. ABG Base Excess -2.3 L Parrish Test No Result Required. O2 Delivery Device No Result Required. Oxygen Flow Rate No Result Required. Vent Mode No Result Required. Vent Rate No Result Required. Mechanical Rate No Result Required. Pressure Support Vent No Result Required. Sodium Potassium Chloride Carbon Dioxide Anion Gap BUN Creatinine Creat Clearance w eGFR Random Glucose Lactic Acid 4.5 H* Calcium Phosphorus Magnesium Total Bilirubin AST ALT Alkaline Phosphatase Creatine Kinase Creatine Kinase Index CK-MB (CK-2) Troponin I B-Natriuretic Peptide 27288.09 H Total Protein Albumin Urine Color Urine Appearance Urine pH Ur Specific [place] Urine Protein Urine Glucose (UA) Urine Ketones Urine Blood Urine Nitrite Urine Bilirubin Urine Urobilinogen Ur Leukocyte Esterase Ur Random Sodium Ur Random Potassium Ur Random Chloride Urine Creatinine 06/23/17 06/23/17 06/23/17 02:30 05:00 05:00 WBC 9.6 RBC 3.29 L Hgb 10.1 L Hct 29.7 L MCV 90.1 MCH 30.5 MCHC 33.9 RDW 14.3 Plt Count 263 D MPV 7.9 D Neutrophils % Neutrophils % (Manual) Band Neutrophils % Lymphocytes % Lymphocytes % (Manual) Monocytes % (Manual) Eosinophils % (Manual) Platelet Estimate Platelet Comment PT with INR 11.40 INR 1.01 Anticoagulation Therapy Puncture Site ABG pH ABG pCO2 at Pt Temp ABG pO2 at Pt Temp ABG HCO3 ABG O2 Sat (Measured) ABG O2 Content ABG Base Excess Parrish Test O2 Delivery Device Oxygen Flow Rate Vent Mode Vent Rate Mechanical Rate Pressure Support Vent Sodium Potassium Chloride Carbon Dioxide Anion Gap BUN Creatinine Creat Clearance w eGFR Random Glucose Lactic Acid 0.9 Calcium Phosphorus Magnesium Total Bilirubin AST ALT Alkaline Phosphatase Creatine Kinase Creatine Kinase Index CK-MB (CK-2) Troponin I B-Natriuretic Peptide Total Protein Albumin Urine Color Urine Appearance Urine pH Ur Specific [place] Urine Protein Urine Glucose (UA) Urine Ketones Urine Blood Urine Nitrite Urine Bilirubin Urine Urobilinogen Ur Leukocyte Esterase Ur Random Sodium Ur Random Potassium Ur Random Chloride Urine Creatinine 06/23/17 06/23/17 06/23/17 05:00 06:30 06:30 WBC RBC Hgb Hct MCV MCH MCHC RDW Plt Count MPV Neutrophils % Neutrophils % (Manual) Band Neutrophils % Lymphocytes % Lymphocytes % (Manual) Monocytes % (Manual) Eosinophils % (Manual) Platelet Estimate Platelet Comment PT with INR INR Anticoagulation Therapy Puncture Site ABG pH ABG pCO2 at Pt Temp ABG pO2 at Pt Temp ABG HCO3 ABG O2 Sat (Measured) ABG O2 Content ABG Base Excess Parrish Test O2 Delivery Device Oxygen Flow Rate Vent Mode Vent Rate Mechanical Rate Pressure Support Vent Sodium 139 Potassium 5.2 H Chloride 105 Carbon Dioxide 32 Anion Gap 2 L BUN 43 H Creatinine 2.3 H Creat Clearance w eGFR 20.56 Random Glucose 90 Lactic Acid Calcium 7.5 L Phosphorus 3.9 Magnesium 2.9 H Total Bilirubin 0.3 D AST 24 ALT 23 Alkaline Phosphatase 114 Creatine Kinase Creatine Kinase Index CK-MB (CK-2) Troponin I B-Natriuretic Peptide Total Protein 6.7 Albumin 2.6 L Urine Color Urine Appearance Urine pH Ur Specific [place] Urine Protein Urine Glucose (UA) Urine Ketones Urine Blood Urine Nitrite Urine Bilirubin Urine Urobilinogen Ur Leukocyte Esterase Ur Random Sodium 58 Ur Random Potassium 37.7 Ur Random Chloride 80 Urine Creatinine 49.4 Problem List - Problems (1) CHF (congestive heart failure) Code(s): I50.9 - HEART FAILURE, UNSPECIFIED Qualifiers: Heart failure type: unspecified Heart failure chronicity: unspecified Qualified Code(s): I50.9 - Heart failure, unspecified (2) COPD (chronic obstructive pulmonary disease) Code(s): J44.9 - CHRONIC OBSTRUCTIVE PULMONARY DISEASE, UNSPECIFIED Qualifiers: COPD type: unspecified COPD Qualified Code(s): J44.9 - Chronic obstructive pulmonary disease, unspecified (3) Pneumonia Code(s): J18.9 - PNEUMONIA, UNSPECIFIED ORGANISM Qualifiers: Pneumonia type: due to unspecified organism (4) Renal insufficiency Code(s): N28.9 - DISORDER OF KIDNEY AND URETER, UNSPECIFIED (5) Acute on chronic renal failure Code(s): N17.9 - ACUTE KIDNEY FAILURE, UNSPECIFIED; N18.9 - CHRONIC KIDNEY DISEASE, UNSPECIFIED Qualifiers: Acute renal failure type: unspecified Chronic kidney disease stage: unspecified stage Qualified Code(s): N17.9 - Acute kidney failure, unspecified Assessment/Plan Acute Respiratory Failure requiring NIPPV due to AE of COPD Do not suspect active infectious process Low suspicion of CHF Elevated lactate (resolved) Hypothyroidism NIPPV as needed VM trial as tolerated ECHO Would monitor off ABX for now Medrol BD TX Monitor off IVF VTE prophylaxis Cardiac telemetry monitoring Dr Henriquez Critical care time spent in reviewing chart, evaluating patient and formulating plan - 36 minutes.
[2017-06-23] MEDS: methylPREDNISolone NA SUCC 40 MG/1 ML VIAL IVPUSH SCH ×3 (11:18→21:42)
--- NOTE | 2017-06-23 11:20 | PN ---
Physical Exam: SUBJECTIVE: Patient seen and examined OBJECTIVE: Vital Signs Period Temp Pulse Resp BP Sys/Kennedy Pulse Ox Last 24 Hr 97.2 F-99.1 F 83-134 20-28 107-181/69-114 89-100 GENERAL: The patient is awake, alert, and fully oriented, in no acute distress. HEAD: Normal with no signs of trauma. EYES: PERRL, extraocular movements intact, sclera anicteric, conjunctiva clear. No ptosis. ENT: Ears normal, nares patent, oropharynx clear without exudates, moist mucous membranes. NECK: Trachea midline, full range of motion, supple. LUNGS: Breath sounds equal, clear to auscultation bilaterally, no wheezes, no crackles, no accessory muscle use. HEART: Regular rate and rhythm, S1, S2 without murmur, rub or gallop. ABDOMEN: Soft, nontender, nondistended, normoactive bowel sounds, no guarding, no rebound, no hepatosplenomegaly, no masses. EXTREMITIES: 2+ pulses, warm, well-perfused, no edema. NEUROLOGICAL: Cranial nerves II through XII grossly intact. Normal speech, gait not observed. PSYCH: Normal mood, normal affect. SKIN: Warm, dry, normal turgor, no rashes or lesions noted Laboratory Results - last 24 hr 06/22/17 06/22/17 06/22/17 06:30 21:30 21:30 WBC 19.7 H D RBC 4.12 D Hgb 12.1 D Hct 37.3 D MCV 90.7 MCH 29.5 D MCHC 32.5 RDW 14.3 D Plt Count 448 H MPV 7.9 Neutrophils % No Result Required. Neutrophils % (Manual) 72.0 Band Neutrophils % 3.0 Lymphocytes % No Result Required. Lymphocytes % (Manual) 18.0 Monocytes % (Manual) 5 Eosinophils % (Manual) 2.0 Platelet Estimate Slt increase Platelet Comment Moderate large plts. PT with INR 11.5 INR 1.03 Anticoagulation Therapy Puncture Site ABG pH ABG pCO2 at Pt Temp ABG pO2 at Pt Temp ABG HCO3 ABG O2 Sat (Measured) ABG O2 Content ABG Base Excess Parrish Test O2 Delivery Device Oxygen Flow Rate Vent Mode Vent Rate Mechanical Rate Pressure Support Vent Sodium Potassium Chloride Carbon Dioxide Anion Gap BUN Creatinine Creat Clearance w eGFR Random Glucose Lactic Acid Calcium Phosphorus Magnesium Total Bilirubin AST ALT Alkaline Phosphatase Creatine Kinase Creatine Kinase Index CK-MB (CK-2) Troponin I B-Natriuretic Peptide Total Protein Albumin Urine Color Ltyellow Urine Appearance Clear Urine pH 6.0 Ur Specific [place] 1.011 Urine Protein Negative Urine Glucose (UA) Negative Urine Ketones Negative Urine Blood Negative Urine Nitrite Negative Urine Bilirubin Negative Urine Urobilinogen Negative Ur Leukocyte Esterase Negative Ur Random Sodium Ur Random Potassium Ur Random Chloride Urine Creatinine 06/22/17 06/22/17 06/22/17 21:30 21:30 21:30 WBC RBC Hgb Hct MCV MCH MCHC RDW Plt Count MPV Neutrophils % Neutrophils % (Manual) Band Neutrophils % Lymphocytes % Lymphocytes % (Manual) Monocytes % (Manual) Eosinophils % (Manual) Platelet Estimate Platelet Comment PT with INR INR Anticoagulation Therapy Puncture Site ABG pH ABG pCO2 at Pt Temp ABG pO2 at Pt Temp ABG HCO3 ABG O2 Sat (Measured) ABG O2 Content ABG Base Excess Parrish Test O2 Delivery Device Oxygen Flow Rate Vent Mode Vent Rate Mechanical Rate Pressure Support Vent Sodium 136 Potassium 5.2 H Chloride 100 Carbon Dioxide 28 Anion Gap 8 BUN 39 H D Creatinine 2.2 H Creat Clearance w eGFR 21.64 Random Glucose 176 H D Lactic Acid Calcium 8.2 L Phosphorus Magnesium Total Bilirubin 0.6 D AST 26 ALT 20 Alkaline Phosphatase 108 H D Creatine Kinase 154 Creatine Kinase Index 1.4 CK-MB (CK-2) 2.3 Troponin I 0.03 B-Natriuretic Peptide Total Protein 7.5 Albumin 3.1 L Urine Color Urine Appearance Urine pH Ur Specific [place] Urine Protein Urine Glucose (UA) Urine Ketones Urine Blood Urine Nitrite Urine Bilirubin Urine Urobilinogen Ur Leukocyte Esterase Ur Random Sodium Ur Random Potassium Ur Random Chloride Urine Creatinine 06/22/17 06/22/17 06/22/17 21:47 21:50 21:50 WBC RBC Hgb Hct MCV MCH MCHC RDW Plt Count MPV Neutrophils % Neutrophils % (Manual) Band Neutrophils % Lymphocytes % Lymphocytes % (Manual) Monocytes % (Manual) Eosinophils % (Manual) Platelet Estimate Platelet Comment PT with INR INR Anticoagulation Therapy No Result Required. Puncture Site No Result Required. ABG pH 7.31 L ABG pCO2 at Pt Temp 47.6 H ABG pO2 at Pt Temp 75.9 D ABG HCO3 23.7 ABG O2 Sat (Measured) 94.3 ABG O2 Content No Result Required. ABG Base Excess -2.3 L Parrish Test No Result Required. O2 Delivery Device No Result Required. Oxygen Flow Rate No Result Required. Vent Mode No Result Required. Vent Rate No Result Required. Mechanical Rate No Result Required. Pressure Support Vent No Result Required. Sodium Potassium Chloride Carbon Dioxide Anion Gap BUN Creatinine Creat Clearance w eGFR Random Glucose Lactic Acid 4.5 H* Calcium Phosphorus Magnesium Total Bilirubin AST ALT Alkaline Phosphatase Creatine Kinase Creatine Kinase Index CK-MB (CK-2) Troponin I B-Natriuretic Peptide 00206.09 H Total Protein Albumin Urine Color Urine Appearance Urine pH Ur Specific [place] Urine Protein Urine Glucose (UA) Urine Ketones Urine Blood Urine Nitrite Urine Bilirubin Urine Urobilinogen Ur Leukocyte Esterase Ur Random Sodium Ur Random Potassium Ur Random Chloride Urine Creatinine 06/23/17 06/23/17 06/23/17 02:30 05:00 05:00 WBC 9.6 RBC 3.29 L Hgb 10.1 L Hct 29.7 L MCV 90.1 MCH 30.5 MCHC 33.9 RDW 14.3 Plt Count 263 D MPV 7.9 D Neutrophils % Neutrophils % (Manual) Band Neutrophils % Lymphocytes % Lymphocytes % (Manual) Monocytes % (Manual) Eosinophils % (Manual) Platelet Estimate Platelet Comment PT with INR 11.40 INR 1.01 Anticoagulation Therapy Puncture Site ABG pH ABG pCO2 at Pt Temp ABG pO2 at Pt Temp ABG HCO3 ABG O2 Sat (Measured) ABG O2 Content ABG Base Excess Parrish Test O2 Delivery Device Oxygen Flow Rate Vent Mode Vent Rate Mechanical Rate Pressure Support Vent Sodium Potassium Chloride Carbon Dioxide Anion Gap BUN Creatinine Creat Clearance w eGFR Random Glucose Lactic Acid 0.9 Calcium Phosphorus Magnesium Total Bilirubin AST ALT Alkaline Phosphatase Creatine Kinase Creatine Kinase Index CK-MB (CK-2) Troponin I B-Natriuretic Peptide Total Protein Albumin Urine Color Urine Appearance Urine pH Ur Specific [place] Urine Protein Urine Glucose (UA) Urine Ketones Urine Blood Urine Nitrite Urine Bilirubin Urine Urobilinogen Ur Leukocyte Esterase Ur Random Sodium Ur Random Potassium Ur Random Chloride Urine Creatinine 06/23/17 06/23/17 06/23/17 05:00 06:30 06:30 WBC RBC Hgb Hct MCV MCH MCHC RDW Plt Count MPV Neutrophils % Neutrophils % (Manual) Band Neutrophils % Lymphocytes % Lymphocytes % (Manual) Monocytes % (Manual) Eosinophils % (Manual) Platelet Estimate Platelet Comment PT with INR INR Anticoagulation Therapy Puncture Site ABG pH ABG pCO2 at Pt Temp ABG pO2 at Pt Temp ABG HCO3 ABG O2 Sat (Measured) ABG O2 Content ABG Base Excess Parrish Test O2 Delivery Device Oxygen Flow Rate Vent Mode Vent Rate Mechanical Rate Pressure Support Vent Sodium 139 Potassium 5.2 H Chloride 105 Carbon Dioxide 32 Anion Gap 2 L BUN 43 H Creatinine 2.3 H Creat Clearance w eGFR 20.56 Random Glucose 90 Lactic Acid Calcium 7.5 L Phosphorus 3.9 Magnesium 2.9 H Total Bilirubin 0.3 D AST 24 ALT 23 Alkaline Phosphatase 114 Creatine Kinase Creatine Kinase Index CK-MB (CK-2) Troponin I B-Natriuretic Peptide Total Protein 6.7 Albumin 2.6 L Urine Color Urine Appearance Urine pH Ur Specific [place] Urine Protein Urine Glucose (UA) Urine Ketones Urine Blood Urine Nitrite Urine Bilirubin Urine Urobilinogen Ur Leukocyte Esterase Ur Random Sodium 58 Ur Random Potassium 37.7 Ur Random Chloride 80 Urine Creatinine 49.4 Active Medications Generic Name Dose Route Start Last Admin Trade Name Freq PRN Reason Stop Dose Admin Albuterol Sulfate 1 amp 06/23/17 02:21 Ventolin 0.083% Nebulizer Soln - NEB Q4H PRN SHORT OF BREATH/WHEEZING Albuterol/Ipratropium 1 amp 06/23/17 08:00 06/23/17 08:10 Duoneb - NEB 1 amp RQID ON LICENSE OF [facility] Administration Ascorbic Acid 500 mg 06/23/17 10:00 06/23/17 09:22 Vitamin C - PO 500 mg DAILY NURIS Administration Calcium Carbonate 1,000 mg 06/23/17 10:00 Os-Ced 500mg - PO Q2D@1000 ON LICENSE OF [facility] Carvedilol 12.5 mg 06/23/17 10:00 06/23/17 09:24 Coreg - PO 12.5 mg BID NURIS Administration Chlorhexidine Gluconate 1 applic 06/23/17 22:00 Hibiclens For Decolonization - TP HS ON LICENSE OF [facility] Cholecalciferol 4,000 unit 06/23/17 10:00 06/23/17 09:22 Vitamin D3 - PO 4,000 unit DAILY NURIS Administration Citalopram Hydrobromide 40 mg 06/23/17 10:00 06/23/17 09:24 Celexa - PO 40 mg DAILY NURIS Administration Ferrous Sulfate 325 mg 06/23/17 10:00 04/27/18 09:22 Feosol - PO 325 mg DAILY NURIS Administration Heparin Sodium (Porcine) 5,000 unit 06/23/17 06:00 06/23/17 06:55 Heparin - SQ 5,000 unit TID NURIS Administration Levothyroxine Sodium 44 mcg 06/23/17 07:00 06/23/17 06:55 Synthroid - PO 44 mcg DAILY@0700 NURIS Administration Methylprednisolone Sodium Succinate 40 mg 06/23/17 09:30 Solu-Medrol - IVPUSH Q6H-IV ON LICENSE OF [facility] Multivitamins/Minerals/Vitamin C 1 tab 06/23/17 10:00 06/23/17 09:21 Tab-A-Vit - PO 1 tab DAILY NURIS Administration Mupirocin 1 applic 06/23/17 10:00 06/23/17 09:24 Bactroban Ointment (For Decolonization) - NS 06/28/17 09:59 1 applic BID NURIS Administration Oxycodone HCl 10 mg 06/23/17 09:32 Roxicodone - PO Q6H PRN PAIN LEVEL 6-10 Thiamine HCl 250 mg 06/23/17 10:00 06/23/17 09:20 Vitamin B1 - PO 250 mg BID NURIS Administration Zinc Sulfate 220 mg 06/23/17 10:00 06/23/17 09:24 Orazinc - PO 220 mg BID NURIS Administration ASSESSMENT/PLAN:
--- NOTE | 2017-06-23 11:31 | PN ---
Progress Note, Physician - Current Medication List Current Medications: Active Medications Albuterol Sulfate (Ventolin 0.083% Nebulizer Soln -) 1 amp NEB Q4H PRN PRN Reason: SHORT OF BREATH/WHEEZING Albuterol/Ipratropium (Duoneb -) 1 amp NEB RQID [facility] Last Admin: 06/23/17 08:10 Dose: 1 amp Ascorbic Acid (Vitamin C -) 500 mg PO DAILY [facility] Last Admin: 06/23/17 09:22 Dose: 500 mg Calcium Carbonate (Os-Ced 500mg -) 1,000 mg PO Q2D@1000 [facility] Last Admin: 06/23/17 11:23 Dose: Not Given Carvedilol (Coreg -) 12.5 mg PO BID [facility] Last Admin: 06/23/17 09:24 Dose: 12.5 mg Chlorhexidine Gluconate (Hibiclens For Decolonization -) 1 applic TP [facility] Cholecalciferol (Vitamin D3 -) 4,000 unit PO DAILY [facility] Last Admin: 06/23/17 09:22 Dose: 4,000 unit Citalopram Hydrobromide (Celexa -) 40 mg PO DAILY [facility] Last Admin: 06/23/17 09:24 Dose: 40 mg Ferrous Sulfate (Feosol -) 325 mg PO DAILY [facility] Last Admin: 06/23/17 09:22 Dose: 325 mg Heparin Sodium (Porcine) (Heparin -) 5,000 unit SQ TID [facility] Last Admin: 06/23/17 06:55 Dose: 5,000 unit Levothyroxine Sodium (Synthroid -) 44 mcg PO DAILY@0700 [facility] Last Admin: 06/23/17 06:55 Dose: 44 mcg Methylprednisolone Sodium Succinate (Solu-Medrol -) 40 mg IVPUSH Q6H-IV [facility] Last Admin: 06/23/17 11:18 Dose: 40 mg Multivitamins/Minerals/Vitamin C (Tab-A-Vit -) 1 tab PO DAILY [facility] Last Admin: 06/23/17 09:21 Dose: 1 tab Mupirocin (Bactroban Ointment (For Decolonization) -) 1 applic NS BID [facility] Stop: 06/28/17 09:59 Last Admin: 06/23/17 09:24 Dose: 1 applic Oxycodone HCl (Roxicodone -) 10 mg PO Q6H PRN PRN Reason: PAIN LEVEL 6-10 Last Admin: 06/23/17 09:40 Dose: 10 mg Thiamine HCl (Vitamin B1 -) 250 mg PO BID [facility] Last Admin: 06/23/17 09:20 Dose: 250 mg Zinc Sulfate (Orazinc -) 220 mg PO BID [facility] Last Admin: 06/23/17 09:24 Dose: 220 mg - Objective Vital Signs: Vital Signs Temperature 98.9 F 06/23/17 10:00 Pulse Rate 83 06/23/17 10:00 Respiratory Rate 20 06/23/17 10:00 Blood Pressure 127/74 06/23/17 10:00 O2 Sat by Pulse Oximetry (%) 94 L 06/23/17 11:31 Labs: CBC, BMP 06/23/17 05:00 06/23/17 05:00 INR, PTT INR 1.01 (0.82-1.09) 06/23/17 05:00
--- NOTE | 2017-06-23 12:12 | PN ---
Physical Exam: SUBJECTIVE: Patient seen and examined Overnight, pt had episode of sinus tachycardia off of bipap, and was placed back on bipap. This am, pt denies chest pain, SOB, n/v/c/c, abdominal pain, and dysuria. OBJECTIVE: Vital Signs Period Temp Pulse Resp BP Sys/Kennedy Pulse Ox Last 24 Hr 97.2 F-99.1 F 83-134 20-28 107-181/69-114 89-100 GENERAL: elderly thin female, lying in bed, breathing on bipap, in NAD HEENT: on bipap, no JVD LUNGS: mechanical breath sounds, diffuse rhonchi, no rales HEART: tachycardic, regular rhythm, no murmurs ABDOMEN: soft, NT, ND EXTREMITIES: hyperpigmentation on b/l legs, no edema NEUROLOGICAL: Cranial nerves II through XII grossly intact. Normal speech, gait not observed. Laboratory Results - last 24 hr 06/22/17 06/22/17 06/22/17 06:30 21:30 21:30 WBC 19.7 H D RBC 4.12 D Hgb 12.1 D Hct 37.3 D MCV 90.7 MCH 29.5 D MCHC 32.5 RDW 14.3 D Plt Count 448 H MPV 7.9 Neutrophils % No Result Required. Neutrophils % (Manual) 72.0 Band Neutrophils % 3.0 Lymphocytes % No Result Required. Lymphocytes % (Manual) 18.0 Monocytes % (Manual) 5 Eosinophils % (Manual) 2.0 Platelet Estimate Slt increase Platelet Comment Moderate large plts. PT with INR 11.5 INR 1.03 Anticoagulation Therapy Puncture Site ABG pH ABG pCO2 at Pt Temp ABG pO2 at Pt Temp ABG HCO3 ABG O2 Sat (Measured) ABG O2 Content ABG Base Excess Parrish Test O2 Delivery Device Oxygen Flow Rate Vent Mode Vent Rate Mechanical Rate Pressure Support Vent Sodium Potassium Chloride Carbon Dioxide Anion Gap BUN Creatinine Creat Clearance w eGFR Random Glucose Lactic Acid Calcium Phosphorus Magnesium Total Bilirubin AST ALT Alkaline Phosphatase Creatine Kinase Creatine Kinase Index CK-MB (CK-2) Troponin I B-Natriuretic Peptide Total Protein Albumin Urine Color Ltyellow Urine Appearance Clear Urine pH 6.0 Ur Specific [place] 1.011 Urine Protein Negative Urine Glucose (UA) Negative Urine Ketones Negative Urine Blood Negative Urine Nitrite Negative Urine Bilirubin Negative Urine Urobilinogen Negative Ur Leukocyte Esterase Negative Ur Random Sodium Ur Random Potassium Ur Random Chloride Urine Creatinine 06/22/17 06/22/17 06/22/17 21:30 21:30 21:30 WBC RBC Hgb Hct MCV MCH MCHC RDW Plt Count MPV Neutrophils % Neutrophils % (Manual) Band Neutrophils % Lymphocytes % Lymphocytes % (Manual) Monocytes % (Manual) Eosinophils % (Manual) Platelet Estimate Platelet Comment PT with INR INR Anticoagulation Therapy Puncture Site ABG pH ABG pCO2 at Pt Temp ABG pO2 at Pt Temp ABG HCO3 ABG O2 Sat (Measured) ABG O2 Content ABG Base Excess Parrish Test O2 Delivery Device Oxygen Flow Rate Vent Mode Vent Rate Mechanical Rate Pressure Support Vent Sodium 136 Potassium 5.2 H Chloride 100 Carbon Dioxide 28 Anion Gap 8 BUN 39 H D Creatinine 2.2 H Creat Clearance w eGFR 21.64 Random Glucose 176 H D Lactic Acid Calcium 8.2 L Phosphorus Magnesium Total Bilirubin 0.6 D AST 26 ALT 20 Alkaline Phosphatase 108 H D Creatine Kinase 154 Creatine Kinase Index 1.4 CK-MB (CK-2) 2.3 Troponin I 0.03 B-Natriuretic Peptide Total Protein 7.5 Albumin 3.1 L Urine Color Urine Appearance Urine pH Ur Specific [place] Urine Protein Urine Glucose (UA) Urine Ketones Urine Blood Urine Nitrite Urine Bilirubin Urine Urobilinogen Ur Leukocyte Esterase Ur Random Sodium Ur Random Potassium Ur Random Chloride Urine Creatinine 06/22/17 06/22/17 06/22/17 21:47 21:50 21:50 WBC RBC Hgb Hct MCV MCH MCHC RDW Plt Count MPV Neutrophils % Neutrophils % (Manual) Band Neutrophils % Lymphocytes % Lymphocytes % (Manual) Monocytes % (Manual) Eosinophils % (Manual) Platelet Estimate Platelet Comment PT with INR INR Anticoagulation Therapy No Result Required. Puncture Site No Result Required. ABG pH 7.31 L ABG pCO2 at Pt Temp 47.6 H ABG pO2 at Pt Temp 75.9 D ABG HCO3 23.7 ABG O2 Sat (Measured) 94.3 ABG O2 Content No Result Required. ABG Base Excess -2.3 L Parrish Test No Result Required. O2 Delivery Device No Result Required. Oxygen Flow Rate No Result Required. Vent Mode No Result Required. Vent Rate No Result Required. Mechanical Rate No Result Required. Pressure Support Vent No Result Required. Sodium Potassium Chloride Carbon Dioxide Anion Gap BUN Creatinine Creat Clearance w eGFR Random Glucose Lactic Acid 4.5 H* Calcium Phosphorus Magnesium Total Bilirubin AST ALT Alkaline Phosphatase Creatine Kinase Creatine Kinase Index CK-MB (CK-2) Troponin I B-Natriuretic Peptide 36836.09 H Total Protein Albumin Urine Color Urine Appearance Urine pH Ur Specific [place] Urine Protein Urine Glucose (UA) Urine Ketones Urine Blood Urine Nitrite Urine Bilirubin Urine Urobilinogen Ur Leukocyte Esterase Ur Random Sodium Ur Random Potassium Ur Random Chloride Urine Creatinine 06/23/17 06/23/17 06/23/17 02:30 05:00 05:00 WBC 9.6 RBC 3.29 L Hgb 10.1 L Hct 29.7 L MCV 90.1 MCH 30.5 MCHC 33.9 RDW 14.3 Plt Count 263 D MPV 7.9 D Neutrophils % Neutrophils % (Manual) Band Neutrophils % Lymphocytes % Lymphocytes % (Manual) Monocytes % (Manual) Eosinophils % (Manual) Platelet Estimate Platelet Comment PT with INR 11.40 INR 1.01 Anticoagulation Therapy Puncture Site ABG pH ABG pCO2 at Pt Temp ABG pO2 at Pt Temp ABG HCO3 ABG O2 Sat (Measured) ABG O2 Content ABG Base Excess Parrish Test O2 Delivery Device Oxygen Flow Rate Vent Mode Vent Rate Mechanical Rate Pressure Support Vent Sodium Potassium Chloride Carbon Dioxide Anion Gap BUN Creatinine Creat Clearance w eGFR Random Glucose Lactic Acid 0.9 Calcium Phosphorus Magnesium Total Bilirubin AST ALT Alkaline Phosphatase Creatine Kinase Creatine Kinase Index CK-MB (CK-2) Troponin I B-Natriuretic Peptide Total Protein Albumin Urine Color Urine Appearance Urine pH Ur Specific [place] Urine Protein Urine Glucose (UA) Urine Ketones Urine Blood Urine Nitrite Urine Bilirubin Urine Urobilinogen Ur Leukocyte Esterase Ur Random Sodium Ur Random Potassium Ur Random Chloride Urine Creatinine 06/23/17 06/23/17 06/23/17 05:00 06:30 06:30 WBC RBC Hgb Hct MCV MCH MCHC RDW Plt Count MPV Neutrophils % Neutrophils % (Manual) Band Neutrophils % Lymphocytes % Lymphocytes % (Manual) Monocytes % (Manual) Eosinophils % (Manual) Platelet Estimate Platelet Comment PT with INR INR Anticoagulation Therapy Puncture Site ABG pH ABG pCO2 at Pt Temp ABG pO2 at Pt Temp ABG HCO3 ABG O2 Sat (Measured) ABG O2 Content ABG Base Excess Parrish Test O2 Delivery Device Oxygen Flow Rate Vent Mode Vent Rate Mechanical Rate Pressure Support Vent Sodium 139 Potassium 5.2 H Chloride 105 Carbon Dioxide 32 Anion Gap 2 L BUN 43 H Creatinine 2.3 H Creat Clearance w eGFR 20.56 Random Glucose 90 Lactic Acid Calcium 7.5 L Phosphorus 3.9 Magnesium 2.9 H Total Bilirubin 0.3 D AST 24 ALT 23 Alkaline Phosphatase 114 Creatine Kinase Creatine Kinase Index CK-MB (CK-2) Troponin I B-Natriuretic Peptide Total Protein 6.7 Albumin 2.6 L Urine Color Urine Appearance Urine pH Ur Specific [place] Urine Protein Urine Glucose (UA) Urine Ketones Urine Blood Urine Nitrite Urine Bilirubin Urine Urobilinogen Ur Leukocyte Esterase Ur Random Sodium 58 Ur Random Potassium 37.7 Ur Random Chloride 80 Urine Creatinine 49.4 Active Medications Generic Name Dose Route Start Last Admin Trade Name Freq PRN Reason Stop Dose Admin Albuterol Sulfate 1 amp 06/23/17 02:21 Ventolin 0.083% Nebulizer Soln - NEB Q4H PRN SHORT OF BREATH/WHEEZING Albuterol/Ipratropium 1 amp 06/23/17 08:00 06/23/17 08:10 Duoneb - NEB 1 amp RQID [facility] Administration Ascorbic Acid 500 mg 06/23/17 10:00 06/23/17 09:22 Vitamin C - PO 500 mg DAILY [facility] Administration Calcium Carbonate 1,000 mg 06/23/17 10:00 06/23/17 11:23 Os-Ced 500mg - PO Not Given Q2D@1000 [facility] Carvedilol 12.5 mg 06/23/17 10:00 06/23/17 09:24 Coreg - PO 12.5 mg BID NURIS Administration Chlorhexidine Gluconate 1 applic 06/23/17 22:00 Hibiclens For Decolonization - TP HS [facility] Cholecalciferol 4,000 unit 06/23/17 10:00 06/23/17 09:22 Vitamin D3 - PO 4,000 unit DAILY NURIS Administration Citalopram Hydrobromide 40 mg 06/23/17 10:00 06/23/17 09:24 Celexa - PO 40 mg DAILY NURIS Administration Ferrous Sulfate 325 mg 06/23/17 10:00 06/23/17 09:22 Feosol - PO 325 mg DAILY NURIS Administration Heparin Sodium (Porcine) 5,000 unit 06/23/17 06:00 06/23/17 06:55 Heparin - SQ 5,000 unit TID NURIS Administration Levothyroxine Sodium 44 mcg 06/23/17 07:00 06/23/17 06:55 Synthroid - PO 44 mcg DAILY@0700 NURIS Administration Methylprednisolone Sodium Succinate 40 mg 06/23/17 09:30 06/23/17 11:18 Solu-Medrol - IVPUSH 40 mg Q6H-IV NURIS Administration Multivitamins/Minerals/Vitamin C 1 tab 06/23/17 10:00 06/23/17 09:21 Tab-A-Vit - PO 1 tab DAILY NURIS Administration Mupirocin 1 applic 06/23/17 10:00 06/23/17 09:24 Bactroban Ointment (For Decolonization) - NS 06/28/17 09:59 1 applic BID NURIS Administration Oxycodone HCl 10 mg 06/23/17 09:32 06/23/17 09:40 Roxicodone - PO 10 mg Q6H PRN Administration PAIN LEVEL 6-10 Thiamine HCl 250 mg 06/23/17 10:00 06/23/17 09:20 Vitamin B1 - PO 250 mg BID NURIS Administration Zinc Sulfate 220 mg 06/23/17 10:00 06/23/17 09:24 Orazinc - PO 220 mg BID NURIS Administration ASSESSMENT/PLAN: [id number] w/ hx of A-fib, COPD (on 3 L O2 at home), Lung Cancer (in remission), Breast cancer, and renal insufficiency who presented with acute hypoxic respiratory failure, admitted for CAP vs. CHF exacerbation vs. COPD exacerbation. ID #severe sepsis (tachycardia, leukocytosis, lactic acidosis). no obvious cause, likely 2/2 COPD exacerbation, less likely CAP. -CXR: hyperinflated lungs, unconvincing RLL infiltrate -WBC 19.7--> 9.6 -f/u UCx, Bcx, and sputum Cx -lactic acidosis resolved, currently 0.9 -abx stopped, will monitor off for now. Will f/u cultures and continue to trend wbc count and temps. Resp #Acute Hypoxic respiratory failure -Likely 2/2 copd exacerbation given physical exam, hyperinflated lungs on CXR, and ABG findings -started steroids -Duonebs PRN, Albuterol -wean off bipap as tolerated -f/u echo -BNP 19082, likely 2/2 right heart strain -Daily weights/ I/O's -Keep O2 Sat>90% -Pulm on board Renal #CKD stage IV -Cr. 2.3 today, at baseline -avoid nephrotoxins -urine lytes, urine cr -monitor Endo #Hypothyroidism -cont home Levothyroxine 44mcg CV #A-fib -cont home coreg 12.5 BID FEN/ppx -po fluids -electrolytes wnl -Renal diet -Hep SQ TID -no GI ppx indicated Dispo -stable for transfer to tele Case discussed with attending, Dr. Henriquez. -Clyde Alanis MD PGY1 ICU Team Visit type - Emergency Visit Emergency Visit: Yes ED Registration Date: 06/22/17 Care time: The patient presented to the Emergency Department on the above date and was hospitalized for further evaluation of their emergent condition. - New Patient This patient is new to me today: Yes Date on this admission: 06/23/17 - Critical Care Critical Care patient: Yes Total Critical Care Time (in minutes): 37 Critical Care Statement: The care of this patient involved high complexity decision making to prevent further life threatening deterioration of the patient 's condition and/or to evaluate & treat vital organ system(s) failure or risk of failure.
--- NOTE | 2017-06-23 15:42 | CON.CARD ---
Consult Consult Specialty:: Cardiology Referred by:: Dr. Thompson Reason for Consultation:: CHF - History of Present Illness Chief Complaint: Shortness of breath History of Present Illness: 77 year-old woman with a PMHx of CAD, s/p PCI/stenting in the past, paroxysmal atrial fibrillation, COPD (3L O2), lung cancer (remission), breast cancer (8 years ago), CKD, presented at [place] 06/22/2017 because of shortness of breath, transferred to [facility] for further management. The patient was recently (3 weeks ago) treated at [facility] for chest pain and pneumonia. Her SOB occurred while she was in a group meeting. She was diaphoretic and had a dry cough. She denies recurrent chest pain, palpitation, fevers, chills nausea, vomiting, syncope or near syncope. She was found to have leukocytosis and elevated lactic acid with CXR evidence of RLL pneumonia. Received Ceftriaxone, and Azithromycin in ED. She was tachypnea, tachycardia and hypertensive in ICU. Echocardiogram 06/23/2017 showed significant segmental wall motion abnormalities with moderate LV systolic dysfunction. LVEF 35-40%. Moderate RV dysfunction. Moderate to severe and mild AI. - History Source History Provided By: Patient, Family Member, Medical Record, Transfer Record Limitations to Obtaining History: No Limitations - Past Medical History Cardio/Vascular: Yes: Aortic Stenosis, CAD (with coronary stenting), HTN, Hyperlipdemia, Mitral Insufficiency, Pulmonary Hypertension Pulmonary: Yes: Cancer (Chemothrerapy for small cell carcinoma- Dr Simpson), COPD Gastrointestinal: Yes: Diverticulosis, Other (Breast lumpectomy) Renal/: Yes: Renal Failure, Renal Inusuff ...: No Psych: Yes: Anxiety Musculoskeletal: Yes: Chronic low back pain, Osteoarthritis Endocrine: Yes: Hypothyroidism, Osteopenia - Past Surgical History Past Surgical History: Yes: Laminectomy (cervical , lumbar ), Stent, Tonsillectomy, Tubal Ligation - Alcohol/Substance Use Hx Alcohol Use: No Date of Last Use: 02/27/81 - Smoking History Smoking history: Former smoker Have you smoked in the past 12 months: No Aproximately how many cigarettes per day: 0 If you are a former smoker, when did you quit?: 2014 - Social History Usual Living Arrangement: With Spouse ADL: Independent 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 History of Recent Travel: No Home Medications - Allergies Allergies/Adverse Reactions: Allergies Allergy/AdvReac Type Severity Reaction Status Date / Time No Known Allergies Allergy Verified 12/18/16 18:56 - Home Medications Home Medications: Ambulatory Orders Citalopram Hydrobromide [Celexa -] 40 mg PO DAILY tablet 08/05/16 Ascorbate Calcium [Vitamin C] 500 mg PO DAILY 12/18/16 Calcium Carbonate [Calcium] 1,000 mg PO Q2D 12/18/16 Carvedilol [Coreg -] 12.5 mg PO BID 12/18/16 Cholecalciferol (Vitamin D3) [Vitamin D3] 4,000 unit PO DAILY 12/18/16 Guaifenesin [Mucinex -] 600 mg PO BID PRN 12/18/16 Hydrocodone/Acetaminophen [Hydrocodon-Acetaminophn 10-325] 1 each PO Q4H PRN Iron 65 mg PO DAILY 12/18/16 Levothyroxine [Synthroid -] 44 mcg PO DAILY 12/18/16 Albuterol 2.5/Ipratropium 0.5 [Duoneb -] 1 amp NEB QIDR amp 12/24/16 Multivitamin [Daily Multiple Vitamin] 1 each PO DAILY 06/22/17 Thiamine HCl [Vitamin B1] 250 mg PO BID 06/22/17 Zinc 50 mg PO BID 06/22/17 Family Disease History - Family Disease History Family Disease History: CA: Father (diffuse unknown primary), Sister ( of lung cancer), Other: Mother ( after hip fracture) Review of Systems - Review of Systems Constitutional: reports: Weakness HENT: reports: No Symptoms Neck: reports: No Symptoms Cardiovascular: reports: Chest Pain, Shortness of Breath Respiratory: reports: SOB Gastrointestinal: reports: No Symptoms Genitourinary: reports: No Symptoms Breasts: reports: No Symptoms Reported Musculoskeletal: reports: No Symptoms Integumentary: reports: No Symptoms Neurological: reports: No Symptoms Endocrine: reports: No Symptoms Hematology/Lymphatic: reports: No Symptoms Psychiatric: reports: No Symptoms Vital Signs: Vital Signs Temperature 98.7 F 06/23/17 14:00 Pulse Rate 83 06/23/17 14:00 Respiratory Rate 20 06/23/17 12:00 Blood Pressure 117/69 06/23/17 14:00 O2 Sat by Pulse Oximetry (%) 95 06/23/17 13:54 General: Well developed. Poorly nourished and thin. No acute distress. Head: Normocephalic. Atraumatic, Eyes: PERRLA, EOMI. Sclerae anicteric. Conjunctivae clear. Neck: Supple. No JVD. No bruits. Heart: Normal S1, S2: Regularly regular rhythm and rate. II/ CARLTON at RUSB with radiation. A2 is diminished. No gallop or rub. Lungs: Symmetrical air entry. Right LL crackle. No wheezing or rhonchi. Abdomen: Soft. Bowel sound positive. Non tender. No masses. Extremities: No edema. No clubbing or cyanosis. PD 2+, equal bilaterally. Neuro: Intact, no focal findings. AAO X3. - Other Data Labs, Other Data: CBC, BMP 06/23/17 05:00 06/23/17 05:00 INR, PTT INR 1.01 (0.82-1.09) 06/23/17 05:00 Troponin, BNP 06/22/17 06/22/17 21:30 21:50 Troponin I 0.03 B-Natriuretic Peptide 89760.09 H Troponin, BNP 06/22/17 06/22/17 21:30 21:50 Troponin I 0.03 B-Natriuretic Peptide 96068.09 H Assessment/Plan 77 year-old woman with a PMHx of CAD, s/p PCI/stenting in the past, paroxysmal atrial fibrillation, COPD (3L O2), lung cancer (remission), breast cancer (8 years ago), CKD, presented at [place] 06/22/2017 because of shortness of breath, transferred to [facility] for further management. The patient was recently (3 weeks ago) treated at [facility] for chest pain and pneumonia. Her SOB occurred while she was in a group meeting. She was diaphoretic and had a dry cough. She denies recurrent chest pain, palpitation, fevers, chills nausea, vomiting, syncope or near syncope. She was found to have leukocytosis and elevated lactic acid with CXR evidence of RLL pneumonia. Received Ceftriaxone, and Azithromycin in ED. She was tachypnea, tachycardia and hypertensive in ICU. Echocardiogram 06/23/2017 showed significant segmental wall motion abnormalities with moderate LV systolic dysfunction. LVEF 35-40%. Moderate RV dysfunction. Moderate to severe and mild AI. 1) Acute systolic CHF: Acute respiratory distress, likely caused by acute systolic CHF and COPD. Moderate to severe may exacerbated her symptoms. She is currently stable with resolved physical signs of fluid overload. Would use Lasix as needed at this time. Continue Carvedilol for heart rate and BP control. 2) Moderate to severe : Need repeat a good quality echo when the patient is stable. She may need aortic valve intervention in the future. 3) CAD: s/p stenting in the remote past. Had chest pain 3 weeks ago. Echo shows moderate LV systolic dysfunction with significant segmental wall motion abnormalities. Aspirin 81 mg daily and low dose statin recommended. 4) Paroxysmal atrial fibrillation: In sinus, no recurrent palpitation or atrial fibrillation so far.
[2017-06-23] MEDS: CHLORHEXIDINE GLUCONATE 4% CLEANSER FOR DECOLONIZATION TP SCH (21:42)
[2017-06-23] MEDS: MUPIROCIN 2% TOPICAL OINTMENT FOR DECOLONIZATION NS SCH (21:42)
[2017-06-23] MEDS: CARVEDILOL 12.5 MG TABLET (FP) PO SCH (21:42)
[2017-06-23] MEDS: THIAMINE HCL 100 MG TABLET (FP) PO SCH (21:43)
[2017-06-23] MEDS: ZINC SULFATE 220 MG CAPSULE (FP) PO SCH (21:43)
[2017-06-23] MEDS ORDERED: CHLORHEXIDINE GLUCONATE 4% CLEANSER FOR DECOLONIZATION TP SCH (22:00)
[2017-06-24] MEDS: methylPREDNISolone NA SUCC 40 MG/1 ML VIAL IVPUSH SCH ×3 (02:46→18:21)
[2017-06-24] MEDS: oxyCODONE HCL 5 MG TABLET PO PRN ×3 (05:35→20:47)
[2017-06-24] MEDS: HEPARIN NA (PORCINE) 5,000 UNITS/ML 1ML VIAL SQ SCH ×3 (05:35→21:08)
[2017-06-24 06:00] LABS: HEMOGLOBIN 9.9 GM/dL (10.7-15.3); LYMPH % 8.6 % (8-40); MCH 30.7 pg (25.7-33.7); MCHC 34.2 g/dl (32.0-36.0); MEAN CELL VOLUME 89.8 fl (80-96); MONO % 0.4 % (3.8-10.2); PLATELET COUNT 252 K/MM3 (134-434); RBC 3.23 M/mm3 (3.60-5.2); RDW 14.6 % (11.6-15.6); WHITE BLOOD COUNT 7.8 K/mm3 (4.0-10.0)
[2017-06-24] MEDS: LEVOTHYROXINE NA 88 MCG TABLET (FP) PO SCH ×2 (06:10→06:41)
[2017-06-24 06:20] LABS: ALBUMIN 2.6 g/dl (3.4-5.0); ANION GAP 2 (8-16); BLOOD UREA NITROGEN 49 mg/dL (7-18); CALCIUM 7.8 mg/dL (8.5-10.1); CHLORIDE 108 mmol/L (98-107); CO2 29 mmol/L (21-32); GLUCOSE,RANDOM 148 mg/dL (74-106); POTASSIUM 5.3 mmol/L (3.5-5.1); SODIUM 139 mmol/L (136-145)
[2017-06-24 06:24] LABS: ALK PHOS 99 U/L (45-117); BILIRUBIN,TOTAL 0.2 mg/dL (0.2-1.0); CREATININE 2.2 mg/dL (0.55-1.02); PHOSPHOROUS 3.5 mg/dL (2.5-4.9); SGOT/AST 13 U/L (15-37); SGPT/ALT 19 U/L (12-78); TOT PROT 6.9 g/dl (6.4-8.2)
[2017-06-24] MEDS: ALBUTEROL SO4 2.5/IPRATROPIUM 0.5 INH SOL 3 ML VIAL.NEB. NEB SCH ×4 (08:10→20:49)
[2017-06-24] MEDS: ZINC SULFATE 220 MG CAPSULE (FP) PO SCH ×2 (09:24→21:07)
[2017-06-24] MEDS: CHOLECALCIFEROL (VITAMIN D3) 1,000 UNIT TABLET (FP) PO SCH (09:25)
[2017-06-24] MEDS: ASCORBIC ACID 500 MG TABLET (FP) PO SCH (09:26)
[2017-06-24] MEDS: CITALOPRAM HYDROBROMIDE 20 MG TABLET (FP) PO SCH (09:26)
[2017-06-24] MEDS: THIAMINE HCL 100 MG TABLET (FP) PO SCH ×2 (09:27→21:05)
[2017-06-24] MEDS: MULTIVITAMINS (DAILY MVI) TABLET (FP) PO SCH (09:27)
[2017-06-24] MEDS: FERROUS SO4 325 MG TABLET (FP) PO SCH (09:27)
[2017-06-24] MEDS: CARVEDILOL 12.5 MG TABLET (FP) PO SCH ×2 (09:27→21:05)
--- NOTE | 2017-06-24 09:56 | PN ---
Progress Note (short form) - Note Progress Note: PULMONARY/CCM Pt seen and examined in the ICU. States breathing is better. Did not require BiPAP overnight. Less cough and wheezing. Last Vital Signs Temp Pulse Resp BP Pulse Ox 98.0 F 83 20 133/77 96 06/24/17 06:00 06/24/17 06:00 06/24/17 06:00 06/24/17 06:00 06/23/17 21:00 Intake & Output 06/21/17 06/22/17 06/23/17 06/24/17 23:59 23:59 23:59 23:59 Intake Total 850 240 Output Total 1100 350 Balance -250 -110 Weight 47.627 kg 46.833 kg 47.202 kg Gen: NAD at rest Heart: RRR Lung: scattered rhonchi Abd: soft, nontender Ext: no edema CBC, BMP 06/24/17 05:10 06/24/17 05:10 Active Medications Albuterol Sulfate (Ventolin 0.083% Nebulizer Soln -) 1 amp NEB Q4H PRN PRN Reason: SHORT OF BREATH/WHEEZING Albuterol/Ipratropium (Duoneb -) 1 amp NEB RQID [facility] Last Admin: 06/24/17 08:10 Dose: 1 amp Ascorbic Acid (Vitamin C -) 500 mg PO DAILY [facility] Last Admin: 06/24/17 09:26 Dose: 500 mg Calcium Carbonate (Os-Ced 500mg -) 1,000 mg PO Q2D@1000 [facility] Carvedilol (Coreg -) 12.5 mg PO BID [facility] Last Admin: 06/24/17 09:27 Dose: 12.5 mg Chlorhexidine Gluconate (Hibiclens For Decolonization -) 1 applic TP HS [facility] Last Admin: 06/23/17 21:42 Dose: 1 applic Cholecalciferol (Vitamin D3 -) 4,000 unit PO DAILY [facility] Last Admin: 06/24/17 09:25 Dose: 4,000 unit Citalopram Hydrobromide (Celexa -) 40 mg PO DAILY [facility] Last Admin: 06/24/17 09:26 Dose: 40 mg Ferrous Sulfate (Feosol -) 325 mg PO DAILY [facility] Last Admin: 06/24/17 09:27 Dose: 325 mg Heparin Sodium (Porcine) (Heparin -) 5,000 unit SQ TID [facility] Last Admin: 06/24/17 05:35 Dose: 5,000 unit Levothyroxine Sodium (Synthroid -) 44 mcg PO DAILY@0700 [facility] Last Admin: 06/24/17 06:41 Dose: 44 mcg Methylprednisolone Sodium Succinate (Solu-Medrol -) 40 mg IVPUSH Q6H-IV [facility] Last Admin: 06/24/17 08:47 Dose: 40 mg Multivitamins/Minerals/Vitamin C (Tab-A-Vit -) 1 tab PO DAILY [facility] Last Admin: 06/24/17 09:27 Dose: 1 tab Mupirocin (Bactroban Ointment (For Decolonization) -) 1 applic NS BID [facility] Stop: 06/28/17 09:59 Last Admin: 06/23/17 21:42 Dose: 1 applic Oxycodone HCl (Roxicodone -) 10 mg PO Q6H PRN PRN Reason: PAIN LEVEL 6-10 Last Admin: 06/24/17 05:35 Dose: 10 mg Thiamine HCl (Vitamin B1 -) 250 mg PO BID [facility] Last Admin: 06/24/17 09:27 Dose: 250 mg Zinc Sulfate (Orazinc -) 220 mg PO BID [facility] Last Admin: 06/24/17 09:24 Dose: 220 mg A/P Acute Hypoxic Respiratory Failure Acute COPD Exacerbation Biventricular Systolic Dysfunction Aortic Stenosis Lactic Acidosis resolved CKD Hypothyroidism - will decrease medrol to q8h - inhaled bronchodilators standing and PRN - O2 to keep Spo2 >90% - BiPAP as needed - monitor urine output, creatinine - PO as tolerated - DVT prophylaxis - can monitor on floor
[2017-06-24] MEDS: MUPIROCIN 2% TOPICAL OINTMENT FOR DECOLONIZATION NS SCH ×2 (10:00→21:09)
--- NOTE | 2017-06-24 11:43 | PN ---
Progress Note, Physician Chief Complaint: still cough and sob but improving tele neg History of Present Illness: 7 year-old woman with a PMHx of CAD, s/p PCI/stenting in the past, paroxysmal atrial fibrillation, COPD (3L O2), lung cancer (remission), breast cancer (8 years ago), CKD, presented at [place] 06/22/2017 because of shortness of breath, transferred to [facility] for further management. The patient was recently (3 weeks ago) treated at [facility] for chest pain and pneumonia. Her SOB occurred while she was in a group meeting. She was diaphoretic and had a dry cough. She denies recurrent chest pain, palpitation, fevers, chills nausea, vomiting, syncope or near syncope. She was found to have leukocytosis and elevated lactic acid with CXR evidence of RLL pneumonia. Received Ceftriaxone, and Azithromycin in ED. She was tachypnea, tachycardia and hypertensive in ICU. Echocardiogram 06/23/2017 showed significant segmental wall motion abnormalities with moderate LV systolic dysfunction. LVEF 35-40%. Moderate RV dysfunction. Moderate to severe and mild AI. - Current Medication List Current Medications: Active Medications Albuterol Sulfate (Ventolin 0.083% Nebulizer Soln -) 1 amp NEB Q4H PRN PRN Reason: SHORT OF BREATH/WHEEZING Albuterol/Ipratropium (Duoneb -) 1 amp NEB RQID [facility] Last Admin: 06/24/17 11:25 Dose: 1 amp Ascorbic Acid (Vitamin C -) 500 mg PO DAILY [facility] Last Admin: 06/24/17 09:26 Dose: 500 mg Calcium Carbonate (Os-Ced 500mg -) 1,000 mg PO Q2D@1000 [facility] Carvedilol (Coreg -) 12.5 mg PO BID [facility] Last Admin: 06/24/17 09:27 Dose: 12.5 mg Chlorhexidine Gluconate (Hibiclens For Decolonization -) 1 applic TP HS [facility] Last Admin: 06/23/17 21:42 Dose: 1 applic Cholecalciferol (Vitamin D3 -) 4,000 unit PO DAILY [facility] Last Admin: 06/24/17 09:25 Dose: 4,000 unit Citalopram Hydrobromide (Celexa -) 40 mg PO DAILY [facility] Last Admin: 06/24/17 09:26 Dose: 40 mg Ferrous Sulfate (Feosol -) 325 mg PO DAILY [facility] Last Admin: 06/24/17 09:27 Dose: 325 mg Heparin Sodium (Porcine) (Heparin -) 5,000 unit SQ TID [facility] Last Admin: 06/24/17 05:35 Dose: 5,000 unit Levothyroxine Sodium (Synthroid -) 44 mcg PO DAILY@0700 [facility] Last Admin: 06/24/17 06:41 Dose: 44 mcg Methylprednisolone Sodium Succinate (Solu-Medrol -) 40 mg IVPUSH Q8H-IV [facility] Multivitamins/Minerals/Vitamin C (Tab-A-Vit -) 1 tab PO DAILY [facility] Last Admin: 06/24/17 09:27 Dose: 1 tab Mupirocin (Bactroban Ointment (For Decolonization) -) 1 applic NS BID [facility] Stop: 06/28/17 09:59 Last Admin: 06/23/17 21:42 Dose: 1 applic Oxycodone HCl (Roxicodone -) 10 mg PO Q6H PRN PRN Reason: PAIN LEVEL 6-10 Last Admin: 06/24/17 05:35 Dose: 10 mg Thiamine HCl (Vitamin B1 -) 250 mg PO BID [facility] Last Admin: 06/24/17 09:27 Dose: 250 mg Zinc Sulfate (Orazinc -) 220 mg PO BID [facility] Last Admin: 06/24/17 09:24 Dose: 220 mg - Objective Vital Signs: Vital Signs Temperature 98.4 F 06/24/17 10:00 Pulse Rate 86 06/24/17 10:00 Respiratory Rate 18 06/24/17 10:00 Blood Pressure 116/59 06/24/17 10:00 O2 Sat by Pulse Oximetry (%) 97 06/24/17 10:00 Constitutional: Yes: No Distress, Calm Eyes: Yes: Conjunctiva Clear, EOM Intact HENT: Yes: Normocephalic Neck: Yes: Trachea Midline Cardiovascular: Yes: Regular Rate and Rhythm, Murmur (2/6 tony rusb), S1, S2 Respiratory: Yes: Rales (bilat bases) Gastrointestinal: Yes: Normal Bowel Sounds, Soft Extremities: Yes: WNL Edema: No Labs: CBC, BMP 06/24/17 05:10 06/24/17 05:10 INR, PTT INR 1.01 (0.82-1.09) 06/23/17 05:00 Problem List - Problems (1) CHF (congestive heart failure) Assessment/Plan: 1) Acute systolic CHF: Acute respiratory distress, likely caused by acute systolic CHF and COPD. Moderate to severe may exacerbated her symptoms. She is currently stable with resolved physical signs of fluid overload. Would use Lasix as needed at this time. Continue Carvedilol for heart rate and BP control. 2) Moderate to severe : Need repeat a good quality echo when the patient is stable. She may need aortic valve intervention in the future. Would probably defer this for outpatient fu given her pulmonary issues right now. 3) CAD: s/p stenting in the remote past. Had chest pain 3 weeks ago. Echo shows moderate LV systolic dysfunction with significant segmental wall motion abnormalities. Aspirin 81 mg daily and low dose statin recommended. 4) Paroxysmal atrial fibrillation: In sinus, no recurrent palpitation or atrial fibrillation so far. Code(s): I50.9 - HEART FAILURE, UNSPECIFIED Qualifiers: Heart failure type: systolic Heart failure chronicity: acute on chronic Qualified Code(s): I50.23 - Acute on chronic systolic (congestive) heart failure
--- NOTE | 2017-06-24 15:06 | PN ---
Progress Note, Physician Chief Complaint: COPD EXACERBATION History of Present Illness: NAD sitting in chair off bipap IV tapering steroids Seen by Cardiology and pulmonary - Current Medication List Current Medications: Active Medications Albuterol Sulfate (Ventolin 0.083% Nebulizer Soln -) 1 amp NEB Q4H PRN PRN Reason: SHORT OF BREATH/WHEEZING Albuterol/Ipratropium (Duoneb -) 1 amp NEB RQID [facility] Last Admin: 06/24/17 11:25 Dose: 1 amp Ascorbic Acid (Vitamin C -) 500 mg PO DAILY [facility] Last Admin: 06/24/17 09:26 Dose: 500 mg Calcium Carbonate (Os-Ced 500mg -) 1,000 mg PO Q2D@1000 [facility] Carvedilol (Coreg -) 12.5 mg PO BID [facility] Last Admin: 06/24/17 09:27 Dose: 12.5 mg Chlorhexidine Gluconate (Hibiclens For Decolonization -) 1 applic TP HS [facility] Last Admin: 06/23/17 21:42 Dose: 1 applic Cholecalciferol (Vitamin D3 -) 4,000 unit PO DAILY [facility] Last Admin: 06/24/17 09:25 Dose: 4,000 unit Citalopram Hydrobromide (Celexa -) 40 mg PO DAILY [facility] Last Admin: 06/24/17 09:26 Dose: 40 mg Ferrous Sulfate (Feosol -) 325 mg PO DAILY [facility] Last Admin: 06/24/17 09:27 Dose: 325 mg Heparin Sodium (Porcine) (Heparin -) 5,000 unit SQ TID [facility] Last Admin: 06/24/17 14:03 Dose: 5,000 unit Levothyroxine Sodium (Synthroid -) 44 mcg PO DAILY@0700 [facility] Last Admin: 06/24/17 06:41 Dose: 44 mcg Methylprednisolone Sodium Succinate (Solu-Medrol -) 40 mg IVPUSH Q8H-IV [facility] Multivitamins/Minerals/Vitamin C (Tab-A-Vit -) 1 tab PO DAILY [facility] Last Admin: 06/24/17 09:27 Dose: 1 tab Mupirocin (Bactroban Ointment (For Decolonization) -) 1 applic NS BID [facility] Stop: 06/28/17 09:59 Last Admin: 06/24/17 10:00 Dose: 1 applic Oxycodone HCl (Roxicodone -) 10 mg PO Q6H PRN PRN Reason: PAIN LEVEL 6-10 Last Admin: 06/24/17 12:33 Dose: 10 mg Thiamine HCl (Vitamin B1 -) 250 mg PO BID [facility] Last Admin: 06/24/17 09:27 Dose: 250 mg Zinc Sulfate (Orazinc -) 220 mg PO BID [facility] Last Admin: 06/24/17 09:24 Dose: 220 mg - Objective Vital Signs: Vital Signs Temperature 98.5 F 06/24/17 14:00 Pulse Rate 85 06/24/17 14:00 Respiratory Rate 20 06/24/17 14:00 Blood Pressure 101/50 06/24/17 14:00 O2 Sat by Pulse Oximetry (%) 97 06/24/17 10:00 Constitutional: Yes: No Distress, Calm, Cachectic Cardiovascular: Yes: Regular Rate and Rhythm Respiratory: Yes: Diminished (BLL) Gastrointestinal: Yes: Normal Bowel Sounds, Soft Musculoskeletal: Yes: Muscle Weakness Extremities: Yes: WNL Edema: No Peripheral Pulses WNL: Yes Neurological: Yes: Alert, Oriented Psychiatric: Yes: Alert, Oriented Labs: CBC, BMP 06/24/17 05:10 06/24/17 05:10 INR, PTT INR 1.01 (0.82-1.09) 06/23/17 05:00 Problem List - Problems (1) COPD (chronic obstructive pulmonary disease) Assessment/Plan: Pulmonary consult -nasal O2 -Bronchodilators -Tapering IV steroids -repeat CXR- no change Code(s): J44.9 - CHRONIC OBSTRUCTIVE PULMONARY DISEASE, UNSPECIFIED Qualifiers: COPD type: unspecified COPD Qualified Code(s): J44.9 - Chronic obstructive pulmonary disease, unspecified (2) CHF (congestive heart failure) Assessment/Plan: -Cardiology consult -Furosemide as needed -on Carvedilol Code(s): I50.9 - HEART FAILURE, UNSPECIFIED Qualifiers: Heart failure type: systolic Heart failure chronicity: acute on chronic Qualified Code(s): I50.23 - Acute on chronic systolic (congestive) heart failure (3) Anemia Assessment/Plan: -Chronic -JOAN -recheck iron stores, b12, folate, TSH, Ft4 Code(s): D64.9 - ANEMIA, UNSPECIFIED Qualifiers: Anemia type: due to chronic kidney disease Chronic kidney disease stage: unspecified stage Qualified Code(s): N18.9 - Chronic kidney disease, unspecified (4) CKD (chronic kidney disease) Code(s): N18.9 - CHRONIC KIDNEY DISEASE, UNSPECIFIED Assessment/Plan see problem list
[2017-06-24] MEDS: AMINO ACIDS/PROTEIN HYDROLYS 30 ML LIQUID.PKT PO SCH (18:21)
[2017-06-24] MEDS: MIRTAZAPINE 15 MG TABLET (FP) PO SCH (21:08)
[2017-06-24] MEDS: CHLORHEXIDINE GLUCONATE 4% CLEANSER FOR DECOLONIZATION TP SCH (21:09)
[2017-06-25] MEDS: methylPREDNISolone NA SUCC 40 MG/1 ML VIAL IVPUSH SCH ×2 (01:07→09:23)
[2017-06-25] MEDS: oxyCODONE HCL 5 MG TABLET PO PRN ×3 (05:50→20:18)
[2017-06-25 07:22] LABS: BASO % 0.1 % (0-2.0); HEMATOCRIT 29.8 % (32.4-45.2); HEMOGLOBIN 9.9 GM/dL (10.7-15.3); LYMPH % 5.3 % (8-40); MCH 29.9 pg (25.7-33.7); MEAN CELL VOLUME 90.4 fl (80-96); MEAN PLT VOLUME 7.9 fl (7.5-11.1); MONO % 0.5 % (3.8-10.2); NEUT % 94.1 % (42.8-82.8); PLATELET COUNT 270 K/MM3 (134-434); RDW 14.4 % (11.6-15.6); WHITE BLOOD COUNT 10.3 K/mm3 (4.0-10.0)
[2017-06-25 07:55] LABS: ALBUMIN 2.8 g/dl (3.4-5.0); ANION GAP 6 (8-16); BLOOD UREA NITROGEN 64 mg/dL (7-18); CALCIUM 8.3 mg/dL (8.5-10.1); CHLORIDE 106 mmol/L (98-107); CO2 28 mmol/L (21-32); GLUCOSE,RANDOM 132 mg/dL (74-106); POTASSIUM 4.6 mmol/L (3.5-5.1); SODIUM 140 mmol/L (136-145)
[2017-06-25 07:59] LABS: ALK PHOS 89 U/L (45-117); BILIRUBIN,TOTAL 0.3 mg/dL (0.2-1.0); CREATININE 2.3 mg/dL (0.55-1.02); MAGNESIUM 2.9 mg/dL (1.8-2.4); PHOSPHOROUS 4.5 mg/dL (2.5-4.9); SGOT/AST 17 U/L (15-37); SGPT/ALT 18 U/L (12-78)
[2017-06-25] MEDS: AMINO ACIDS/PROTEIN HYDROLYS 30 ML LIQUID.PKT PO SCH ×2 (08:05→16:49)
--- NOTE | 2017-06-25 08:27 | PN ---
Progress Note, Physician Chief Complaint: still cough and sob but improving tele neg History of Present Illness: 7 year-old woman with a PMHx of CAD, s/p PCI/stenting in the past, paroxysmal atrial fibrillation, COPD (3L O2), lung cancer (remission), breast cancer (8 years ago), CKD, presented at [place] 06/22/2017 because of shortness of breath, transferred to [facility] for further management. The patient was recently (3 weeks ago) treated at [facility] for chest pain and pneumonia. Her SOB occurred while she was in a group meeting. She was diaphoretic and had a dry cough. She denies recurrent chest pain, palpitation, fevers, chills nausea, vomiting, syncope or near syncope. She was found to have leukocytosis and elevated lactic acid with CXR evidence of RLL pneumonia. Received Ceftriaxone, and Azithromycin in ED. She was tachypnea, tachycardia and hypertensive in ICU. Echocardiogram 06/23/2017 showed significant segmental wall motion abnormalities with moderate LV systolic dysfunction. LVEF 35-40%. Moderate RV dysfunction. Moderate to severe and mild AI. - Current Medication List Current Medications: Active Medications Albuterol Sulfate (Ventolin 0.083% Nebulizer Soln -) 1 amp NEB Q4H PRN PRN Reason: SHORT OF BREATH/WHEEZING Albuterol/Ipratropium (Duoneb -) 1 amp NEB RQID [facility] Last Admin: 06/24/17 20:49 Dose: 1 amp Amino Acids (Prosource No Carb Liquid Pkt) 30 ml PO BID@0800,1730 [facility] Last Admin: 06/24/17 18:21 Dose: 30 ml Ascorbic Acid (Vitamin C -) 500 mg PO DAILY [facility] Last Admin: 06/24/17 09:26 Dose: 500 mg Calcium Carbonate (Os-Ced 500mg -) 1,000 mg PO Q2D@1000 [facility] Carvedilol (Coreg -) 12.5 mg PO BID [facility] Last Admin: 06/24/17 21:05 Dose: 12.5 mg Chlorhexidine Gluconate (Hibiclens For Decolonization -) 1 applic TP HS [facility] Last Admin: 06/24/17 21:09 Dose: Not Given Cholecalciferol (Vitamin D3 -) 4,000 unit PO DAILY [facility] Last Admin: 06/24/17 09:25 Dose: 4,000 unit Citalopram Hydrobromide (Celexa -) 40 mg PO DAILY [facility] Last Admin: 06/24/17 09:26 Dose: 40 mg Ferrous Sulfate (Feosol -) 325 mg PO DAILY [facility] Last Admin: 06/24/17 09:27 Dose: 325 mg Heparin Sodium (Porcine) (Heparin -) 5,000 unit SQ BID [facility] Last Admin: 06/24/17 21:08 Dose: 5,000 unit Levothyroxine Sodium (Synthroid -) 44 mcg PO DAILY@0700 [facility] Last Admin: 06/24/17 06:41 Dose: 44 mcg Methylprednisolone Sodium Succinate (Solu-Medrol -) 40 mg IVPUSH Q8H-IV [facility] Last Admin: 06/25/17 01:07 Dose: 40 mg Mirtazapine (Remeron -) 15 mg PO HS [facility] Last Admin: 06/24/17 21:08 Dose: 15 mg Multivitamins/Minerals/Vitamin C (Tab-A-Vit -) 1 tab PO DAILY [facility] Last Admin: 06/24/17 09:27 Dose: 1 tab Mupirocin (Bactroban Ointment (For Decolonization) -) 1 applic NS BID [facility] Stop: 06/28/17 09:59 Last Admin: 06/24/17 21:09 Dose: Not Given Oxycodone HCl (Roxicodone -) 10 mg PO Q6H PRN PRN Reason: PAIN LEVEL 6-10 Last Admin: 06/25/17 05:50 Dose: 10 mg Thiamine HCl (Vitamin B1 -) 250 mg PO BID [facility] Last Admin: 06/24/17 21:05 Dose: 250 mg Zinc Sulfate (Orazinc -) 220 mg PO BID [facility] Last Admin: 06/24/17 21:07 Dose: 220 mg - Objective Vital Signs: Vital Signs Temperature 97.3 F L 06/25/17 02:00 Pulse Rate 92 H 06/25/17 06:00 Respiratory Rate 20 06/25/17 06:00 Blood Pressure 138/76 06/25/17 06:00 O2 Sat by Pulse Oximetry (%) 99 06/24/17 21:00 Constitutional: Yes: No Distress, Calm Eyes: Yes: Conjunctiva Clear, EOM Intact HENT: Yes: Normocephalic Neck: Yes: Trachea Midline Cardiovascular: Yes: Regular Rate and Rhythm Respiratory: Yes: Rales (bilat bases) Gastrointestinal: Yes: Soft Extremities: Yes: WNL Edema: No Peripheral Pulses WNL: Yes Labs: CBC, BMP 06/25/17 07:04 INR, PTT INR 1.01 (0.82-1.09) 06/23/17 05:00 Problem List - Problems (1) CHF (congestive heart failure) Assessment/Plan: 1) Acute systolic CHF: Acute respiratory distress, likely caused by acute systolic CHF and COPD. Moderate to severe may exacerbated her symptoms. She is currently stable with resolved physical signs of fluid overload. Would use Lasix daily.. Continue Carvedilol for heart rate and BP control. 2) Moderate to severe : Need repeat a good quality echo when the patient is stable. She may need aortic valve intervention in the future. Would probably defer this for outpatient fu given her pulmonary issues right now. 3) CAD: s/p stenting in the remote past. Had chest pain 3 weeks ago. Echo shows moderate LV systolic dysfunction with significant segmental wall motion abnormalities. Aspirin 81 mg daily and low dose statin recommended. 4) Paroxysmal atrial fibrillation: In sinus, no recurrent palpitation or atrial fibrillation so far. Code(s): I50.9 - HEART FAILURE, UNSPECIFIED Qualifiers: Heart failure type: systolic Heart failure chronicity: acute on chronic Qualified Code(s): I50.23 - Acute on chronic systolic (congestive) heart failure
[2017-06-25] MEDS: THIAMINE HCL 100 MG TABLET (FP) PO SCH ×2 (09:20→21:27)
[2017-06-25] MEDS: CHOLECALCIFEROL (VITAMIN D3) 1,000 UNIT TABLET (FP) PO SCH (09:20)
[2017-06-25] MEDS: CITALOPRAM HYDROBROMIDE 20 MG TABLET (FP) PO SCH (09:23)
[2017-06-25] MEDS: HEPARIN NA (PORCINE) 5,000 UNITS/ML 1ML VIAL SQ SCH ×2 (09:23→21:28)
[2017-06-25] MEDS: ASCORBIC ACID 500 MG TABLET (FP) PO SCH (09:23)
[2017-06-25] MEDS: CALCIUM (OYSTER SHELL) 500 MG TABLET (FP) PO SCH (09:23)
[2017-06-25] MEDS: CARVEDILOL 12.5 MG TABLET (FP) PO SCH ×2 (09:23→21:27)
[2017-06-25] MEDS: FERROUS SO4 325 MG TABLET (FP) PO SCH (09:23)
[2017-06-25] MEDS: ZINC SULFATE 220 MG CAPSULE (FP) PO SCH ×2 (09:23→21:27)
[2017-06-25] MEDS: MULTIVITAMINS (DAILY MVI) TABLET (FP) PO SCH (09:23)
[2017-06-25] MEDS: MUPIROCIN 2% TOPICAL OINTMENT FOR DECOLONIZATION NS SCH ×2 (09:45→21:28)
--- NOTE | 2017-06-25 11:42 | PN ---
Progress Note (short form) - Note Progress Note: PULMONARY States breathing continues to improve. Not requiring BiPAP. Less cough and wheezing. Last Vital Signs Temp Pulse Resp BP Pulse Ox 98.4 F 96 H 20 141/74 95 06/25/17 10:00 06/25/17 10:00 06/25/17 10:00 06/25/17 10:00 06/25/17 09:00 Gen: NAD at rest Heart: RRR Lung: scattered rhonchi Abd: soft, nontender Ext: no edema CBC, BMP 06/25/17 07:04 06/25/17 07:04 Active Medications Albuterol Sulfate (Ventolin 0.083% Nebulizer Soln -) 1 amp NEB Q4H PRN PRN Reason: SHORT OF BREATH/WHEEZING Albuterol/Ipratropium (Duoneb -) 1 amp NEB RQID [facility] Last Admin: 06/24/17 20:49 Dose: 1 amp Amino Acids (Prosource No Carb Liquid Pkt) 30 ml PO BID@0800,1730 [facility] Last Admin: 06/25/17 08:05 Dose: 30 ml Ascorbic Acid (Vitamin C -) 500 mg PO DAILY [facility] Last Admin: 06/25/17 09:23 Dose: 500 mg Calcium Carbonate (Os-Ced 500mg -) 1,000 mg PO Q2D@1000 [facility] Last Admin: 06/25/17 09:23 Dose: 1,000 mg Carvedilol (Coreg -) 12.5 mg PO BID [facility] Last Admin: 06/25/17 09:23 Dose: 12.5 mg Chlorhexidine Gluconate (Hibiclens For Decolonization -) 1 applic TP HS [facility] Last Admin: 06/24/17 21:09 Dose: Not Given Cholecalciferol (Vitamin D3 -) 4,000 unit PO DAILY [facility] Last Admin: 06/25/17 09:20 Dose: 4,000 unit Citalopram Hydrobromide (Celexa -) 40 mg PO DAILY [facility] Last Admin: 06/25/17 09:23 Dose: 40 mg Ferrous Sulfate (Feosol -) 325 mg PO DAILY [facility] Last Admin: 06/25/17 09:23 Dose: 325 mg Heparin Sodium (Porcine) (Heparin -) 5,000 unit SQ BID [facility] Last Admin: 06/25/17 09:23 Dose: 5,000 unit Levothyroxine Sodium (Synthroid -) 44 mcg PO DAILY@0700 [facility] Last Admin: 06/24/17 06:41 Dose: 44 mcg Methylprednisolone Sodium Succinate (Solu-Medrol -) 40 mg IVPUSH Q8H-IV [facility] Last Admin: 06/25/17 09:23 Dose: 40 mg Mirtazapine (Remeron -) 15 mg PO HS [facility] Last Admin: 06/24/17 21:08 Dose: 15 mg Multivitamins/Minerals/Vitamin C (Tab-A-Vit -) 1 tab PO DAILY [facility] Last Admin: 06/25/17 09:23 Dose: 1 tab Mupirocin (Bactroban Ointment (For Decolonization) -) 1 applic NS BID [facility] Stop: 06/28/17 09:59 Last Admin: 06/25/17 09:45 Dose: Not Given Oxycodone HCl (Roxicodone -) 10 mg PO Q6H PRN PRN Reason: PAIN LEVEL 6-10 Last Admin: 06/25/17 05:50 Dose: 10 mg Thiamine HCl (Vitamin B1 -) 250 mg PO BID [facility] Last Admin: 06/25/17 09:20 Dose: 250 mg Zinc Sulfate (Orazinc -) 220 mg PO BID [facility] Last Admin: 06/25/17 09:23 Dose: 220 mg A/P Acute Hypoxic Respiratory Failure Acute COPD Exacerbation Biventricular Systolic Dysfunction Aortic Stenosis Lactic Acidosis resolved CKD Hypothyroidism - will decrease medrol to q12h - if continues to improve, can change to PO prednisone 40mg daily and taper as outpt - inhaled bronchodilators standing and PRN - O2 to keep Spo2 >90% - BiPAP as needed - monitor urine output, creatinine - PO as tolerated - DVT prophylaxis
--- NOTE | 2017-06-25 12:09 | PN ---
Progress Note, Physician Chief Complaint: COPD EXACERBATION History of Present Illness: NAD, feels better sitting in chair off bipap IV tapering steroids Seen by Cardiology and pulmonary - Current Medication List Current Medications: Active Medications Albuterol Sulfate (Ventolin 0.083% Nebulizer Soln -) 1 amp NEB Q4H PRN PRN Reason: SHORT OF BREATH/WHEEZING Albuterol/Ipratropium (Duoneb -) 1 amp NEB RQID [facility] Last Admin: 06/24/17 20:49 Dose: 1 amp Amino Acids (Prosource No Carb Liquid Pkt) 30 ml PO BID@0800,1730 [facility] Last Admin: 06/25/17 08:05 Dose: 30 ml Ascorbic Acid (Vitamin C -) 500 mg PO DAILY [facility] Last Admin: 06/25/17 09:23 Dose: 500 mg Calcium Carbonate (Os-Ced 500mg -) 1,000 mg PO Q2D@1000 [facility] Last Admin: 06/25/17 09:23 Dose: 1,000 mg Carvedilol (Coreg -) 12.5 mg PO BID [facility] Last Admin: 06/25/17 09:23 Dose: 12.5 mg Chlorhexidine Gluconate (Hibiclens For Decolonization -) 1 applic TP [facility] Last Admin: 06/24/17 21:09 Dose: Not Given Cholecalciferol (Vitamin D3 -) 4,000 unit PO DAILY [facility] Last Admin: 06/25/17 09:20 Dose: 4,000 unit Citalopram Hydrobromide (Celexa -) 40 mg PO DAILY [facility] Last Admin: 06/25/17 09:23 Dose: 40 mg Ferrous Sulfate (Feosol -) 325 mg PO DAILY [facility] Last Admin: 06/25/17 09:23 Dose: 325 mg Heparin Sodium (Porcine) (Heparin -) 5,000 unit SQ BID [facility] Last Admin: 06/25/17 09:23 Dose: 5,000 unit Levothyroxine Sodium (Synthroid -) 44 mcg PO DAILY@0700 [facility] Last Admin: 06/24/17 06:41 Dose: 44 mcg Methylprednisolone Sodium Succinate (Solu-Medrol -) 40 mg IVPUSH BID [facility] Mirtazapine (Remeron -) 15 mg PO HS [facility] Last Admin: 06/24/17 21:08 Dose: 15 mg Multivitamins/Minerals/Vitamin C (Tab-A-Vit -) 1 tab PO DAILY [facility] Last Admin: 06/25/17 09:23 Dose: 1 tab Mupirocin (Bactroban Ointment (For Decolonization) -) 1 applic NS BID [facility] Stop: 06/28/17 09:59 Last Admin: 06/25/17 09:45 Dose: Not Given Oxycodone HCl (Roxicodone -) 10 mg PO Q6H PRN PRN Reason: PAIN LEVEL 6-10 Last Admin: 06/25/17 05:50 Dose: 10 mg Thiamine HCl (Vitamin B1 -) 250 mg PO BID [facility] Last Admin: 06/25/17 09:20 Dose: 250 mg Zinc Sulfate (Orazinc -) 220 mg PO BID [facility] Last Admin: 06/25/17 09:23 Dose: 220 mg - Objective Vital Signs: Vital Signs Temperature 98.4 F 06/25/17 10:00 Pulse Rate 96 H 06/25/17 10:00 Respiratory Rate 20 06/25/17 10:00 Blood Pressure 141/74 06/25/17 10:00 O2 Sat by Pulse Oximetry (%) 95 06/25/17 09:00 Constitutional: Yes: No Distress, Calm, Cachectic Cardiovascular: Yes: Regular Rate and Rhythm Respiratory: Yes: Diminished (BLL), On Nasal O2, SOB on Exertion Musculoskeletal: Yes: Muscle Weakness Extremities: Yes: WNL Edema: No Peripheral Pulses WNL: Yes Neurological: Yes: Alert, Oriented Psychiatric: Yes: Alert, Oriented Labs: CBC, BMP 06/25/17 07:04 06/25/17 07:04 INR, PTT INR 1.01 (0.82-1.09) 06/23/17 05:00 Problem List - Problems (1) COPD (chronic obstructive pulmonary disease) Assessment/Plan: Pulmonary consult -nasal O2 -Bronchodilators -Tapering IV steroids -repeat CXR- no change Code(s): J44.9 - CHRONIC OBSTRUCTIVE PULMONARY DISEASE, UNSPECIFIED Qualifiers: COPD type: unspecified COPD Qualified Code(s): J44.9 - Chronic obstructive pulmonary disease, unspecified (2) CHF (congestive heart failure) Assessment/Plan: -Cardiology consult -Furosemide as needed -on Carvedilol Code(s): I50.9 - HEART FAILURE, UNSPECIFIED Qualifiers: Heart failure type: systolic Heart failure chronicity: acute on chronic Qualified Code(s): I50.23 - Acute on chronic systolic (congestive) heart failure (3) Anemia Assessment/Plan: -Chronic -JOAN -recheck iron stores, b12, folate, TSH, Ft4 Code(s): D64.9 - ANEMIA, UNSPECIFIED Qualifiers: Anemia type: due to chronic kidney disease Chronic kidney disease stage: unspecified stage Qualified Code(s): N18.9 - Chronic kidney disease, unspecified (4) CKD (chronic kidney disease) Code(s): N18.9 - CHRONIC KIDNEY DISEASE, UNSPECIFIED Assessment/Plan see problem list
--- NOTE | 2017-06-25 12:12 | DS ---
Physical Examination Vital Signs: Vital Signs Temperature 98.4 F 06/25/17 10:00 Pulse Rate 96 H 06/25/17 10:00 Respiratory Rate 20 06/25/17 10:00 Blood Pressure 141/74 06/25/17 10:00 O2 Sat by Pulse Oximetry (%) 95 06/25/17 09:00 Constitutional: Yes: No Distress, Calm, Cachectic Cardiovascular: Yes: Regular Rate and Rhythm Respiratory: Yes: Diminished, On Nasal O2 Gastrointestinal: Yes: Normal Bowel Sounds, Soft Musculoskeletal: Yes: Muscle Weakness Extremities: Yes: WNL Edema: No Peripheral Pulses WNL: Yes Neurological: Yes: Alert, Oriented Psychiatric: Yes: Alert, Oriented Labs: CBC, BMP 06/25/17 07:04 06/25/17 07:04 Discharge Summary Reason For Visit: COPD EXAC Current Active Problems CHF (congestive heart failure) (Acute) COPD (chronic obstructive pulmonary disease) (Acute) Pneumonia (Acute) Renal insufficiency (Acute) Hospital Course: Patient is a 77 yo F with a PMHx of COPD (3L O2), Lung cancer (remission), Breast cancer(8 years ago), Renal insufficiency, presented at [place] because of shortness of breath that occurred while she was in a group meeting. She had her O2 with her with no improvement in her breathing. Her then took her to [facility] where the patient was found hypoxic. She also says she was diaphoretic and had a dry cough. Patient says she went to [facility] 3 weeks ago and was discharged on Levaquin for antibiotics for 10 days. Patient said she only felt better but for a short time. Patient denies chest pain, fevers, nausea, vomiting, dysuria, lower extremity swelling, sick contacts, recent travel, diarrhea. Condition: Stable - Instructions Referrals: Isaiah Thompson MD [Primary Care Provider] - Disposition: VNS/HOME HEALTH CARE - Home Medications Comprehensive Discharge Medication List: Ambulatory Orders Citalopram Hydrobromide [Celexa -] 40 mg PO DAILY tablet 08/05/16 Ascorbate Calcium [Vitamin C] 500 mg PO DAILY 12/18/16 Calcium Carbonate [Calcium] 1,000 mg PO Q2D 12/18/16 Carvedilol [Coreg -] 12.5 mg PO BID 12/18/16 Cholecalciferol (Vitamin D3) [Vitamin D3] 4,000 unit PO DAILY 12/18/16 Guaifenesin [Mucinex -] 600 mg PO BID PRN 12/18/16 Hydrocodone/Acetaminophen [Hydrocodon-Acetaminophn 10-325] 1 each PO Q4H PRN Iron 65 mg PO DAILY 12/18/16 Levothyroxine [Synthroid -] 44 mcg PO DAILY 12/18/16 Albuterol 2.5/Ipratropium 0.5 [Duoneb -] 1 amp NEB QIDR amp 12/24/16 Multivitamin [Daily Multiple Vitamin] 1 each PO DAILY 06/22/17 Thiamine HCl [Vitamin B1] 250 mg PO BID 06/22/17 Zinc 50 mg PO BID 06/22/17
[2017-06-25] MEDS: ALBUTEROL SO4 2.5/IPRATROPIUM 0.5 INH SOL 3 ML VIAL.NEB. NEB SCH (20:22)
[2017-06-25] MEDS: MIRTAZAPINE 15 MG TABLET (FP) PO SCH (21:27)
[2017-06-25] MEDS: CHLORHEXIDINE GLUCONATE 4% CLEANSER FOR DECOLONIZATION TP SCH (21:29)
[2017-06-25] MEDS ORDERED: methylPREDNISolone NA SUCC 40 MG/1 ML VIAL IVPUSH SCH (22:00)
[2017-06-26 06:06] LABS: SERUM IRON SATURATION 11 % (15-55); TOTAL IRON BINDING CAPACITY 274 ug/dL (250-450); UIBC 245 ug/dL (118-369)
[2017-06-26 06:29] LABS: HEMATOCRIT 28.9 % (32.4-45.2); HEMOGLOBIN 9.8 GM/dL (10.7-15.3); LYMPH % 5.9 % (8-40); MCH 30.6 pg (25.7-33.7); MCHC 33.8 g/dl (32.0-36.0); MEAN CELL VOLUME 90.5 fl (80-96); MONO % 1.1 % (3.8-10.2); PLATELET COUNT 247 K/MM3 (134-434); RBC 3.19 M/mm3 (3.60-5.2); RDW 14.4 % (11.6-15.6); WHITE BLOOD COUNT 7.5 K/mm3 (4.0-10.0)
[2017-06-26] MEDS: LEVOTHYROXINE NA 88 MCG TABLET (FP) PO SCH (06:35)
[2017-06-26] MEDS: oxyCODONE HCL 5 MG TABLET PO PRN ×2 (06:36→20:16)
[2017-06-26 07:09] LABS: ALBUMIN 2.6 g/dl (3.4-5.0); ANION GAP 4 (8-16); BLOOD UREA NITROGEN 71 mg/dL (7-18); CHLORIDE 110 mmol/L (98-107); CO2 27 mmol/L (21-32); CREATININE 2.2 mg/dL (0.55-1.02); GLUCOSE,RANDOM 136 mg/dL (74-106); POTASSIUM 4.7 mmol/L (3.5-5.1); SGOT/AST 17 U/L (15-37); SGPT/ALT 22 U/L (12-78); SODIUM 141 mmol/L (136-145)
[2017-06-26 07:11] LABS: ALK PHOS 84 U/L (45-117); BILIRUBIN,TOTAL 0.2 mg/dL (0.2-1.0); TOT PROT 6.6 g/dl (6.4-8.2)
[2017-06-26] MEDS: ALBUTEROL SO4 2.5/IPRATROPIUM 0.5 INH SOL 3 ML VIAL.NEB. NEB SCH ×4 (07:40→20:45)
--- NOTE | 2017-06-26 09:03 | DS ---
Physical Examination Vital Signs: Vital Signs Temperature 97.2 F L 06/26/17 06:00 Pulse Rate 80 06/26/17 06:00 Respiratory Rate 20 06/26/17 06:00 Blood Pressure 147/82 06/26/17 06:00 O2 Sat by Pulse Oximetry (%) 95 06/25/17 22:00 Cardiovascular: Yes: S1, S2 Respiratory: Yes: Rales (at the bases) Gastrointestinal: Yes: Normal Bowel Sounds, Soft Labs: CBC, BMP 06/26/17 06:10 06/26/17 06:10 Discharge Summary Reason For Visit: COPD EXAC Current Active Problems CHF (congestive heart failure) (Acute) COPD (chronic obstructive pulmonary disease) (Acute) Pneumonia (Acute) Renal insufficiency (Acute) Hospital Course: Patient is a 77 yo F with a PMHx of COPD (3L O2), Lung cancer (remission), Breast cancer(8 years ago), Renal insufficiency, presented at [place] because of shortness of breath that occurred while she was in a group meeting. She had her O2 with her with no improvement in her breathing. Her then took her to [facility] where the patient was found hypoxic. She also says she was diaphoretic and had a dry cough. Patient says she went to [facility] 3 weeks ago and was discharged on Levaquin for antibiotics for 10 days. Patient said she only felt better but for a short time. Patient denies chest pain, fevers, nausea, vomiting, dysuria, lower extremity swelling, sick contacts, recent travel, diarrhea. - Problems (1) COPD (chronic obstructive pulmonary disease) Assessment/Plan: -Pulmonary consult -nasal O2 -Bronchodilators -Tapering IV steroids--to po -repeat CXR- no change Code(s): J44.9 - CHRONIC OBSTRUCTIVE PULMONARY DISEASE, UNSPECIFIED Qualifiers: COPD type: unspecified COPD Qualified Code(s): J44.9 - Chronic obstructive pulmonary disease, unspecified (2) CHF (congestive heart failure) Assessment/Plan: -Cardiology consult -Furosemide as needed -on Carvedilol Code(s): I50.9 - HEART FAILURE, UNSPECIFIED Qualifiers: Heart failure type: systolic Heart failure chronicity: acute on chronic Qualified Code(s): I50.23 - Acute on chronic systolic (congestive) heart failure (3) Anemia Assessment/Plan: -Chronic -JOAN -recheck iron stores, b12, folate, TSH, Ft4 Code(s): D64.9 - ANEMIA, UNSPECIFIED Qualifiers: Anemia type: due to chronic kidney disease Chronic kidney disease stage: unspecified stage Qualified Code(s): N18.9 - Chronic kidney disease, unspecified (4) CKD (chronic kidney disease) Code(s): N18.9 - CHRONIC KIDNEY DISEASE, UNSPECIFIED Condition: Stable - Instructions Referrals: Isaiah Thompson MD [Primary Care Provider] - Disposition: VNS/HOME HEALTH CARE - Home Medications Comprehensive Discharge Medication List: Ambulatory Orders Citalopram Hydrobromide [Celexa -] 40 mg PO DAILY tablet 08/05/16 Ascorbate Calcium [Vitamin C] 500 mg PO DAILY 12/18/16 Calcium Carbonate [Calcium] 1,000 mg PO Q2D 12/18/16 Carvedilol [Coreg -] 12.5 mg PO BID 12/18/16 Cholecalciferol (Vitamin D3) [Vitamin D3] 4,000 unit PO DAILY 12/18/16 Guaifenesin [Mucinex -] 600 mg PO BID PRN 12/18/16 Hydrocodone/Acetaminophen [Hydrocodon-Acetaminophn 10-325] 1 each PO Q4H PRN Iron 65 mg PO DAILY 12/18/16 Levothyroxine [Synthroid -] 44 mcg PO DAILY 12/18/16 Albuterol 2.5/Ipratropium 0.5 [Duoneb -] 1 amp NEB QIDR amp 12/24/16 Multivitamin [Daily Multiple Vitamin] 1 each PO DAILY 06/22/17 Thiamine HCl [Vitamin B1] 250 mg PO BID 06/22/17 Zinc 50 mg PO BID 06/22/17
[2017-06-26] MEDS: ASCORBIC ACID 500 MG TABLET (FP) PO SCH (09:44)
[2017-06-26] MEDS: THIAMINE HCL 100 MG TABLET (FP) PO SCH ×2 (09:44→21:44)
[2017-06-26] MEDS: MULTIVITAMINS (DAILY MVI) TABLET (FP) PO SCH (09:46)
[2017-06-26] MEDS: FERROUS SO4 325 MG TABLET (FP) PO SCH (09:46)
[2017-06-26] MEDS: CARVEDILOL 12.5 MG TABLET (FP) PO SCH ×2 (09:46→21:44)
[2017-06-26] MEDS: AMINO ACIDS/PROTEIN HYDROLYS 30 ML LIQUID.PKT PO SCH ×2 (09:47→18:08)
[2017-06-26] MEDS: CITALOPRAM HYDROBROMIDE 20 MG TABLET (FP) PO SCH (09:47)
[2017-06-26] MEDS: MUPIROCIN 2% TOPICAL OINTMENT FOR DECOLONIZATION NS SCH ×2 (09:47→21:45)
[2017-06-26] MEDS: HEPARIN NA (PORCINE) 5,000 UNITS/ML 1ML VIAL SQ SCH ×2 (09:49→21:45)
[2017-06-26] MEDS: CHOLECALCIFEROL (VITAMIN D3) 1,000 UNIT TABLET (FP) PO SCH (09:49)
[2017-06-26] MEDS: ZINC SULFATE 220 MG CAPSULE (FP) PO SCH ×2 (09:49→21:44)
[2017-06-26] MEDS: predniSONE 20 MG TABLET (UD) PO SCH ×2 (09:54→21:44)
--- NOTE | 2017-06-26 10:44 | PN ---
Progress Note, Physician History of Present Illness: pulmonary alert,feeling better,-resp distress - Current Medication List Current Medications: Active Medications Albuterol Sulfate (Ventolin 0.083% Nebulizer Soln -) 1 amp NEB Q4H PRN PRN Reason: SHORT OF BREATH/WHEEZING Albuterol/Ipratropium (Duoneb -) 1 amp NEB RQID [facility] Last Admin: 06/26/17 07:40 Dose: 1 amp Amino Acids (Prosource No Carb Liquid Pkt) 30 ml PO BID@0800,1730 [facility] Last Admin: 06/26/17 09:47 Dose: 30 ml Ascorbic Acid (Vitamin C -) 500 mg PO DAILY [facility] Last Admin: 06/26/17 09:44 Dose: 500 mg Calcium Carbonate (Os-Ced 500mg -) 1,000 mg PO Q2D@1000 [facility] Last Admin: 06/25/17 09:23 Dose: 1,000 mg Carvedilol (Coreg -) 12.5 mg PO BID [facility] Last Admin: 06/26/17 09:46 Dose: 12.5 mg Chlorhexidine Gluconate (Hibiclens For Decolonization -) 1 applic TP [facility] Last Admin: 06/25/17 21:29 Dose: Not Given Cholecalciferol (Vitamin D3 -) 4,000 unit PO DAILY [facility] Last Admin: 06/26/17 09:49 Dose: 4,000 unit Citalopram Hydrobromide (Celexa -) 40 mg PO DAILY [facility] Last Admin: 06/26/17 09:47 Dose: 40 mg Ferrous Sulfate (Feosol -) 325 mg PO DAILY [facility] Last Admin: 06/26/17 09:46 Dose: 325 mg Heparin Sodium (Porcine) (Heparin -) 5,000 unit SQ BID [facility] Last Admin: 06/26/17 09:49 Dose: 5,000 unit Levothyroxine Sodium (Synthroid -) 44 mcg PO DAILY@0700 [facility] Last Admin: 06/26/17 06:35 Dose: 44 mcg Mirtazapine (Remeron -) 15 mg PO HS [facility] Last Admin: 06/25/17 21:27 Dose: 15 mg Multivitamins/Minerals/Vitamin C (Tab-A-Vit -) 1 tab PO DAILY [facility] Last Admin: 06/26/17 09:46 Dose: 1 tab Mupirocin (Bactroban Ointment (For Decolonization) -) 1 applic NS BID [facility] Stop: 06/28/17 09:59 Last Admin: 06/26/17 09:47 Dose: Not Given Oxycodone HCl (Roxicodone -) 10 mg PO Q6H PRN PRN Reason: PAIN LEVEL 6-10 Last Admin: 06/26/17 06:36 Dose: 10 mg Prednisone (Deltasone -) 40 mg PO BID [facility] Last Admin: 06/26/17 09:54 Dose: 40 mg Thiamine HCl (Vitamin B1 -) 250 mg PO BID [facility] Last Admin: 06/26/17 09:44 Dose: 250 mg Zinc Sulfate (Orazinc -) 220 mg PO BID [facility] Last Admin: 06/26/17 09:49 Dose: 220 mg - Objective Vital Signs: Vital Signs Temperature 97.2 F L 06/26/17 06:00 Pulse Rate 80 06/26/17 06:00 Respiratory Rate 20 06/26/17 06:00 Blood Pressure 147/82 06/26/17 06:00 O2 Sat by Pulse Oximetry (%) 95 06/25/17 22:00 Constitutional: Yes: Calm, Thin Eyes: Yes: WNL HENT: Yes: WNL Neck: Yes: WNL Cardiovascular: Yes: Regular Rate and Rhythm, S1, S2 Respiratory: Yes: Wheezes (few wheezes) Gastrointestinal: Yes: Normal Bowel Sounds, Soft Extremities: Yes: WNL Edema: No Labs: CBC, BMP 06/26/17 06:10 06/26/17 06:10 Problem List - Problems (1) CHF (congestive heart failure) Code(s): I50.9 - HEART FAILURE, UNSPECIFIED Qualifiers: Heart failure type: systolic Heart failure chronicity: acute on chronic Qualified Code(s): I50.23 - Acute on chronic systolic (congestive) heart failure (2) COPD (chronic obstructive pulmonary disease) Code(s): J44.9 - CHRONIC OBSTRUCTIVE PULMONARY DISEASE, UNSPECIFIED Qualifiers: COPD type: unspecified COPD Qualified Code(s): J44.9 - Chronic obstructive pulmonary disease, unspecified (3) Acute on chronic renal insufficiency Code(s): N28.9 - DISORDER OF KIDNEY AND URETER, UNSPECIFIED; N18.9 - CHRONIC KIDNEY DISEASE, UNSPECIFIED (4) Aortic stenosis Code(s): I35.0 - NONRHEUMATIC AORTIC (VALVE) STENOSIS Qualifiers: Cardiac valve disease etiology: nonrheumatic Qualified Code(s): I35.0 - Nonrheumatic aortic (valve) stenosis (5) Chronic hypoxemic respiratory failure Code(s): J96.11 - CHRONIC RESPIRATORY FAILURE WITH HYPOXIA (6) HTN (hypertension) Code(s): I10 - ESSENTIAL (PRIMARY) HYPERTENSION Qualifiers: Hypertension type: essential hypertension Qualified Code(s): I10 - Essential (primary) hypertension (7) Acute hypoxemic respiratory failure Code(s): J96.01 - ACUTE RESPIRATORY FAILURE WITH HYPOXIA (8) Acute hypoxemic respiratory failure Code(s): J96.01 - ACUTE RESPIRATORY FAILURE WITH HYPOXIA Assessment/Plan A/P Acute Hypoxic Respiratory Failure improved Acute COPD Exacerbation improved Biventricular Systolic Dysfunction Aortic Stenosis Lactic Acidosis resolved CKD Hypothyroidism - prednisone 40mg daily and taper as outpt - inhaled bronchodilators standing and PRN - O2 to keep Spo2 >90% - BiPAP as needed - monitor urine output, creatinine - PO as tolerated - DVT prophylaxis DR ALVAREZ
--- NOTE | 2017-06-26 14:54 | PN ---
Progress Note, Physician Chief Complaint: Cardiology FU Less dyspnea and cough. Telem NSR History of Present Illness: 77year-old woman with a PMHx of CAD, s/p PCI/stenting in the past, paroxysmal atrial fibrillation, COPD (3L O2), lung cancer (remission), breast cancer (8 years ago), CKD, presented at [place] 06/22/2017 because of shortness of breath, transferred to [facility] for further management. The patient was recently (3 weeks ago) treated at [facility] for chest pain and pneumonia. Her SOB occurred while she was in a group meeting. She was diaphoretic and had a dry cough. She denies recurrent chest pain, palpitation, fevers, chills nausea, vomiting, syncope or near syncope. She was found to have leukocytosis and elevated lactic acid with CXR evidence of RLL pneumonia. Received Ceftriaxone, and Azithromycin in ED. She was tachypnea, tachycardia and hypertensive in ICU. Echocardiogram 06/23/2017 showed significant segmental wall motion abnormalities with moderate LV systolic dysfunction. LVEF 35-40%. Moderate RV dysfunction. Moderate to severe and mild AI. - Current Medication List Current Medications: Active Medications Albuterol Sulfate (Ventolin 0.083% Nebulizer Soln -) 1 amp NEB Q4H PRN PRN Reason: SHORT OF BREATH/WHEEZING Albuterol/Ipratropium (Duoneb -) 1 amp NEB RQID [facility] Last Admin: 06/26/17 11:15 Dose: 1 amp Amino Acids (Prosource No Carb Liquid Pkt) 30 ml PO BID@0800,1730 [facility] Last Admin: 06/26/17 09:47 Dose: 30 ml Ascorbic Acid (Vitamin C -) 500 mg PO DAILY [facility] Last Admin: 06/26/17 09:44 Dose: 500 mg Calcium Carbonate (Os-Ced 500mg -) 1,000 mg PO Q2D@1000 [facility] Last Admin: 06/25/17 09:23 Dose: 1,000 mg Carvedilol (Coreg -) 12.5 mg PO BID [facility] Last Admin: 06/26/17 09:46 Dose: 12.5 mg Chlorhexidine Gluconate (Hibiclens For Decolonization -) 1 applic TP HS [facility] Last Admin: 06/25/17 21:29 Dose: Not Given Cholecalciferol (Vitamin D3 -) 4,000 unit PO DAILY [facility] Last Admin: 06/26/17 09:49 Dose: 4,000 unit Citalopram Hydrobromide (Celexa -) 40 mg PO DAILY [facility] Last Admin: 06/26/17 09:47 Dose: 40 mg Ferrous Sulfate (Feosol -) 325 mg PO DAILY [facility] Last Admin: 06/26/17 09:46 Dose: 325 mg Heparin Sodium (Porcine) (Heparin -) 5,000 unit SQ BID [facility] Last Admin: 06/26/17 09:49 Dose: 5,000 unit Levothyroxine Sodium (Synthroid -) 44 mcg PO DAILY@0700 [facility] Last Admin: 06/26/17 06:35 Dose: 44 mcg Mirtazapine (Remeron -) 15 mg PO [facility] Last Admin: 06/25/17 21:27 Dose: 15 mg Multivitamins/Minerals/Vitamin C (Tab-A-Vit -) 1 tab PO DAILY [facility] Last Admin: 06/26/17 09:46 Dose: 1 tab Mupirocin (Bactroban Ointment (For Decolonization) -) 1 applic NS BID [facility] Stop: 06/28/17 09:59 Last Admin: 06/26/17 09:47 Dose: Not Given Oxycodone HCl (Roxicodone -) 10 mg PO Q6H PRN PRN Reason: PAIN LEVEL 6-10 Last Admin: 06/26/17 06:36 Dose: 10 mg Prednisone (Deltasone -) 40 mg PO BID [facility] Last Admin: 06/26/17 09:54 Dose: 40 mg Thiamine HCl (Vitamin B1 -) 250 mg PO BID [facility] Last Admin: 06/26/17 09:44 Dose: 250 mg Zinc Sulfate (Orazinc -) 220 mg PO BID [facility] Last Admin: 06/26/17 09:49 Dose: 220 mg - Objective Vital Signs: Vital Signs Temperature 98.0 F 06/26/17 14:00 Pulse Rate 86 06/26/17 14:00 Respiratory Rate 20 06/26/17 14:00 Blood Pressure 130/75 06/26/17 14:00 O2 Sat by Pulse Oximetry (%) 95 06/25/17 22:00 Constitutional: Yes: No Distress, Calm, Thin Eyes: Yes: Conjunctiva Clear, EOM Intact HENT: Yes: Atraumatic, Normocephalic Neck: Yes: Supple, Trachea Midline Cardiovascular: Yes: Regular Rate and Rhythm, S1, S2. No: JVD Respiratory: Yes: CTA Bilaterally, Diminished. No: Wheezes Gastrointestinal: Yes: Normal Bowel Sounds, Soft Edema: No Labs: CBC, BMP 06/26/17 06:10 06/26/17 06:10 INR, PTT INR 1.01 (0.82-1.09) 06/23/17 05:00 - ....Imaging Chest X-ray: Report Reviewed Cat Scan: Report Reviewed Problem List - Problems (1) Acute hypoxemic respiratory failure Code(s): J96.01 - ACUTE RESPIRATORY FAILURE WITH HYPOXIA (2) CHF (congestive heart failure) Code(s): I50.9 - HEART FAILURE, UNSPECIFIED Qualifiers: Heart failure type: systolic Heart failure chronicity: acute on chronic Qualified Code(s): I50.23 - Acute on chronic systolic (congestive) heart failure (3) COPD (chronic obstructive pulmonary disease) Code(s): J44.9 - CHRONIC OBSTRUCTIVE PULMONARY DISEASE, UNSPECIFIED Qualifiers: COPD type: unspecified COPD Qualified Code(s): J44.9 - Chronic obstructive pulmonary disease, unspecified (4) Renal insufficiency Code(s): N28.9 - DISORDER OF KIDNEY AND URETER, UNSPECIFIED (5) ASHD (arteriosclerotic heart disease) Code(s): I25.10 - ATHSCL HEART DISEASE OF [place] CORONARY ARTERY W/O ANG PCTRS Assessment/Plan 1) Acute systolic CHF: She is currently stable with resolved physical signs of fluid overload. Continue Carvedilol for heart rate and BP control. 2) Moderate to severe : Need repeat a good quality echo when the patient is stable. She may need aortic valve intervention in the future. Would probably defer this for outpatient fu given her pulmonary issues right now. 3) CAD: s/p stenting in the remote past. Had chest pain 3 weeks ago. Echo shows moderate LV systolic dysfunction with significant segmental wall motion abnormalities. Aspirin 81 mg daily and low dose statin recommended. 4) Paroxysmal atrial fibrillation: In sinus, no recurrent palpitation or atrial fibrillation so far.
[2017-06-26] MEDS: MIRTAZAPINE 15 MG TABLET (FP) PO SCH (21:44)
[2017-06-26] MEDS: CHLORHEXIDINE GLUCONATE 4% CLEANSER FOR DECOLONIZATION TP SCH (21:45)
[2017-06-26] MEDS ORDERED: MELATONIN 1 MG TABLET PO SCH (22:00)
[2017-06-26] MEDS ORDERED: ZOLPIDEM TARTRATE 5 MG TABLET PO ONE (23:42)
[2017-06-27] MEDS: LEVOTHYROXINE NA 88 MCG TABLET (FP) PO SCH (06:20)
[2017-06-27] MEDS: ALBUTEROL SO4 2.5/IPRATROPIUM 0.5 INH SOL 3 ML VIAL.NEB. NEB SCH (08:35)
[2017-06-27] MEDS: MULTIVITAMINS (DAILY MVI) TABLET (FP) PO SCH (09:25)
[2017-06-27] MEDS: FERROUS SO4 325 MG TABLET (FP) PO SCH (09:25)
[2017-06-27] MEDS: CALCIUM (OYSTER SHELL) 500 MG TABLET (FP) PO SCH (09:25)
[2017-06-27] MEDS: CHOLECALCIFEROL (VITAMIN D3) 1,000 UNIT TABLET (FP) PO SCH (09:25)
[2017-06-27] MEDS: CITALOPRAM HYDROBROMIDE 20 MG TABLET (FP) PO SCH (09:25)
[2017-06-27] MEDS: ASCORBIC ACID 500 MG TABLET (FP) PO SCH (09:25)
[2017-06-27] MEDS: predniSONE 20 MG TABLET (UD) PO SCH (09:26)
[2017-06-27] MEDS: CARVEDILOL 12.5 MG TABLET (FP) PO SCH (09:26)
[2017-06-27] MEDS: AMINO ACIDS/PROTEIN HYDROLYS 30 ML LIQUID.PKT PO SCH (09:26)
[2017-06-27] MEDS: HEPARIN NA (PORCINE) 5,000 UNITS/ML 1ML VIAL SQ SCH (09:26)
[2017-06-27] MEDS: THIAMINE HCL 100 MG TABLET (FP) PO SCH (09:27)
--- NOTE | 2017-06-27 09:39 | DS ---
Physical Examination Vital Signs: Vital Signs Temperature 98.2 F 06/27/17 06:00 Pulse Rate 80 06/27/17 06:00 Respiratory Rate 18 06/27/17 06:00 Blood Pressure 139/80 06/27/17 06:00 O2 Sat by Pulse Oximetry (%) 97 06/26/17 20:30 Cardiovascular: Yes: S1, S2 Respiratory: Yes: On Nasal O2, Rales (bases-chronic) Gastrointestinal: Yes: Normal Bowel Sounds, Soft Labs: CBC, BMP 06/26/17 06:10 06/26/17 06:10 Discharge Summary Reason For Visit: COPD EXAC Current Active Problems Acute hypoxemic respiratory failure (Acute) Acute hypoxemic respiratory failure (Acute) CHF (congestive heart failure) (Acute) COPD (chronic obstructive pulmonary disease) (Acute) Pneumonia (Acute) Renal insufficiency (Acute) Hospital Course: Patient is a 77 yo F with a PMHx of COPD (3L O2), Lung cancer (remission), Breast cancer(8 years ago), Renal insufficiency, presented at [place] because of shortness of breath that occurred while she was in a group meeting. She had her O2 with her with no improvement in her breathing. Her then took her to [facility] where the patient was found hypoxic. She also says she was diaphoretic and had a dry cough. Patient says she went to [facility] 3 weeks ago and was discharged on Levaquin for antibiotics for 10 days. Patient said she only felt better but for a short time. Patient denies chest pain, fevers, nausea, vomiting, dysuria, lower extremity swelling, sick contacts, recent travel, diarrhea. - Problems (1) COPD (chronic obstructive pulmonary disease) Assessment/Plan: -Pulmonary consult -nasal O2 -Bronchodilators -Tapering IV steroids--to po -repeat CXR- no change Code(s): J44.9 - CHRONIC OBSTRUCTIVE PULMONARY DISEASE, UNSPECIFIED Qualifiers: COPD type: unspecified COPD Qualified Code(s): J44.9 - Chronic obstructive pulmonary disease, unspecified (2) CHF (congestive heart failure) Assessment/Plan: -Cardiology consult -Furosemide as needed -on Carvedilol Code(s): I50.9 - HEART FAILURE, UNSPECIFIED Qualifiers: Heart failure type: systolic Heart failure chronicity: acute on chronic Qualified Code(s): I50.23 - Acute on chronic systolic (congestive) heart failure (3) Anemia Assessment/Plan: -Chronic -JOAN -recheck iron stores, b12, folate, TSH, Ft4 Code(s): D64.9 - ANEMIA, UNSPECIFIED Qualifiers: Anemia type: due to chronic kidney disease Chronic kidney disease stage: unspecified stage Qualified Code(s): N18.9 - Chronic kidney disease, unspecified (4) CKD (chronic kidney disease) Code(s): N18.9 - CHRONIC KIDNEY DISEASE, UNSPECIFIED Condition: Improved - Instructions Referrals: Isaiah Thompson MD [Primary Care Provider] - Disposition: VNS/HOME HEALTH CARE - Home Medications Comprehensive Discharge Medication List: Ambulatory Orders Ascorbate Calcium [Vitamin C] 500 mg PO DAILY 12/18/16 Calcium Carbonate [Calcium] 1,000 mg PO Q2D 12/18/16 Carvedilol [Coreg -] 12.5 mg PO BID 12/18/16 Cholecalciferol (Vitamin D3) [Vitamin D3] 4,000 unit PO DAILY 12/18/16 Guaifenesin [Mucinex -] 600 mg PO BID PRN 12/18/16 Hydrocodone/Acetaminophen [Hydrocodone-Acetamin 10-325 mg] 1 each PO Q4H PRN Iron 65 mg PO DAILY 12/18/16 Levothyroxine [Synthroid -] 44 mcg PO DAILY 12/18/16 Albuterol 2.5/Ipratropium 0.5 [Duoneb -] 1 amp NEB QIDR amp 12/24/16 Multivitamin [Daily Multiple Vitamin] 1 each PO DAILY 06/22/17 Thiamine HCl [Vitamin B1] 250 mg PO BID 06/22/17 Zinc 50 mg PO BID 06/22/17 Mirtazapine [Remeron -] 15 mg PO HS #30 tablet 06/27/17 Prednisone 10 mg PO BID #100 tab.ds.pk 06/27/17
[2017-06-27] MEDS: ZINC SULFATE 220 MG CAPSULE (FP) PO SCH (09:45)
[2017-06-27] MEDS: oxyCODONE HCL 5 MG TABLET PO PRN (09:45)
[2017-06-27 10:33] VITALS: BP 141/82; PULSE 81; TEMP 97.8
== END 2017-06-27 12:04 | disposition home health service (06) | DRG 871 ==
LOC: FER 21:14 → JICU 23:52 → J4W 06-24 18:49
PROVIDERS: ADMIT Internal Medicine; ATTEND Family Medicine
DX: A41.9 Sepsis, unspecified organism (principal); J96.01 Acute respiratory failure with hypoxia; J18.9 Pneumonia, unspecified organism; I50.23 Acute on chronic systolic (congestive) heart failure; N18.4 Chronic kidney disease, stage 4 (severe); I13.0 Hypertensive heart and chronic kidney disease with heart failure and stage 1 through stage 4 chronic kidney disease, or unspecified chronic kidney disease; E87.2 Acidosis; J44.1 Chronic obstructive pulmonary disease with (acute) exacerbation; R64 Cachexia; Z68.1 Body mass index [BMI] 19.9 or less, adult; Z85.118 Personal history of other malignant neoplasm of bronchus and lung; E03.9 Hypothyroidism, unspecified; D64.9 Anemia, unspecified; Z85.3 Personal history of malignant neoplasm of breast; Z87.891 Personal history of nicotine dependence; E87.5 Hyperkalemia; Z99.81 Dependence on supplemental oxygen; I25.10 Atherosclerotic heart disease of native coronary artery without angina pectoris; Z95.5 Presence of coronary angioplasty implant and graft; I48.0 Paroxysmal atrial fibrillation; I27.20 Pulmonary hypertension, unspecified; I35.0 Nonrheumatic aortic (valve) stenosis; R65.20 Severe sepsis without septic shock
CPT/HCPCS: 36415; 36600; 71045-TC-FY; 71250-TC; 80053; 81003; 82436; 82550; 82553; 82570; 82607; 82728; 82746; 82803; 83540; 83550; 83605; 83735; 83880; 84100; 84133; 84300; 84439; 84443; 84484; 85025; 85027; 85610; 87040; 87070; 87086; 87107; 87186; 87205; 87633; 87899; 93005; 93306-TC; 94640; 94660; 99284-25; J1644; J7620

== ENCOUNTER 2017-10-13 03:07 | Inpatient (IN) | payer OTHER, MEDICARE ==
[2017-10-13] MEDS ORDERED: ALBUTEROL SO4 0.083% IH SOL 2.5 MG/3 ML VIAL.NEB. NEB ONE (03:20)
[2017-10-13] MEDS ORDERED: DEXAMETHASONE SOD PHOSPHATE 10 MG/1 ML VIAL ONE (03:20)
[2017-10-13] MEDS ORDERED: IPRATROPIUM BR 0.02% 0.5 MG/2.5 ML VIAL.NEB. NEB ONE (03:21)
--- NOTE | 2017-10-13 03:26 | PDOC ---
Attending Attestation - HPI HPI: 77 year old female , PMHX of COPD, aortic stenosis, CAD s/p stent and PCI, HTN , HLD, mitral insufficiency, pulmonary HTN, small cell carcinoma s/p chemo, lung CA O2 dependent, renal failure, chronic lower back pain, and hypothyroidism , who presents with difficulty breathing since 10 pm she also appreciated some chest pain at the time which she states has since subsided after being given BIPAP when initially arriving to the ER. She denies recent fevers, chills or infections. Denies dysuria, frequency, or urgency. Denies recent cough or increased sputum production. Past Surgical Hx: lumpectomy PCP: Isaiah Thompson Social Hx: quit smoking > 20 years ago - Physicial Exam PE: GENERAL: Awake, alert, and fully oriented, in no acute distress HEAD: No signs of trauma EYES: PERRLA, EOMI, sclera anicteric, conjunctiva clear LUNGS: Decreased breath sounds. Diffuse crackles b/l. HEART: Tachycardic. Regular rate and rhythm, normal S1 and S2, no murmurs, rubs or gallops ABDOMEN: Soft, nontender, normoactive bowel sounds. No guarding, no rebound. No masses EXTREMITIES: Normal range of motion, no edema. No clubbing or cyanosis. No cords, erythema, or tenderness NEUROLOGICAL: Cranial nerves II through XII grossly intact. Normal speech, normal gait SKIN: Warm, Dry, normal turgor, no rashes or lesions noted. <Marya Conley - Last Filed: 10/13/17 05:31> - Resident Resident Name: John Rivera - ED Attending Attestation I have performed the following: I have examined & evaluated the patient, The case was reviewed & discussed with the resident, I agree w/resident's findings & plan - Medical Decision Making 10/13/17 06:48 Pt will be admitted for SOB; pleural effusion and fluid retention. <Leah Lopez - Last Filed: 10/13/17 06:48>
[2017-10-13 03:28] LABS: BASO % 0.9 % (0-2.0); HEMATOCRIT 38.5 % (32.4-45.2); HEMOGLOBIN 12.1 GM/dL (10.7-15.3); MCH 29.4 pg (25.7-33.7); MCHC 31.4 g/dl (32.0-36.0); MEAN CELL VOLUME 93.4 fl (80-96); MEAN PLT VOLUME 7.6 fl (7.5-11.1); MONO % 4.7 % (3.8-10.2); NEUT % 80.4 % (42.8-82.8); PLATELET COUNT 334 K/MM3 (134-434); RBC 4.12 M/mm3 (3.60-5.2); RDW 17.7 % (11.6-15.6); WHITE BLOOD COUNT 18.2 K/mm3 (4.0-10.0)
[2017-10-13 03:39] LABS: INR 0.93 (0.83-1.09); PROTHROMBIN TIME (PATIENT) 10.5 SEC (9.7-13.0)
[2017-10-13 03:41] LABS: ACTIVATED PTT 18.8 SECONDS (25.2-36.5)
[2017-10-13 03:48] LABS: ANION GAP 5 (8-16); BILIRUBIN,TOTAL 0.4 mg/dL (0.2-1.0); BLOOD UREA NITROGEN 57 mg/dL (7-18); CALCIUM 9.6 mg/dL (8.5-10.1); CHLORIDE 106 mmol/L (98-107); CO2 33 mmol/L (21-32); CREATININE 2.3 mg/dL (0.55-1.02); GLUCOSE,RANDOM 169 mg/dL (74-106); MAGNESIUM 2.5 mg/dL (1.8-2.4); PHOSPHOROUS 3.7 mg/dL (2.5-4.9); POTASSIUM 4.8 mmol/L (3.5-5.1); SGOT/AST 29 U/L (15-37); SGPT/ALT 39 U/L (12-78); SODIUM 144 mmol/L (136-145)
--- NOTE | 2017-10-13 03:48 | PDOC ---
History of Present Illness - General Chief Complaint: Respiratory Distress Stated Complaint: RESPIRATORY DISTRESS Time Seen by Provider: 10/13/17 03:08 - History of Present Illness Initial Comments: 10/13/17 03:42 77 yo F w/ a hx of COPD, aortic stenosis, CAD s/p stent and PCI, HTN, HLD, mitral insufficiency, pulmonary HTN, small cell carcinoma s/p chemo, lung CA O2 dependent, renal failure, chronic lower back pain, and hypothyroidism brought in by EMS for respiratory distress. She describes a feeling of impending doom and says this is it for her. She started becoming short of breath at 10 pm. It slowly worsened until 3 am when she became severly short of breath and called EMS to bring her to the hospital. She said she originally had chest pain but it went away after 10 minutes of BPAP and being in the hospital. She Denies recent fevers, chills or infections. Denies dysuria, frequency, or urgency. Denies recent cough or increased sputum production. 10/13/17 03:44 10/13/17 03:57 10/13/17 04:08 Past History - Past Medical History Allergies/Adverse Reactions: Allergies Allergy/AdvReac Type Severity Reaction Status Date / Time No Known Allergies Allergy Verified 10/13/17 03:23 Home Medications: Ambulatory Orders Carvedilol [Coreg -] 12.5 mg PO BID 12/18/16 Hydrocodone/Acetaminophen [Hydrocodone-Acetamin 10-325 mg] 1 each PO Q4H PRN Levothyroxine [Synthroid -] 88 mcg PO DAILY 12/18/16 Multivitamin [Daily Multiple Vitamin] 1 each PO DAILY 06/22/17 Mirtazapine [Remeron -] 15 mg PO HS #30 tablet 06/27/17 Budesonide [Pulmicort 0.25 mg Nebulizer -] 0.25 mg IH BID 10/13/17 Citalopram Hydrobromide [Citalopram HBr] 40 mg PO DAILY 10/13/17 Diazepam [Valium] 2 mg PO DAILY 10/13/17 Furosemide [Lasix] 40 mg PO DAILY 10/13/17 Magnesium Oxide [Mag-Ox -] 400 mg PO BID 10/13/17 Mirtazapine 15 mg PO HS 10/13/17 Prednisone 20 mg PO BID 10/13/17 Anemia: Yes Asthma: No Cancer: Yes (Rt breast CA and lung CA - 2 primaries) Cardiac Disorders: Yes (ASHD S/P STENT) CVA: No COPD: Yes (O2 3L NC PRN.) CHF: No DVT: Yes Dementia: No Diabetes: No GI Disorders: No Disorders: Yes (uti,renal insuff.) HTN: Yes Hypercholesterolemia: No Liver Disease: No Seizures: No Thyroid Disease: Yes (hypothyroidism, MULTIPLE NODULES) - Surgical History Abdominal Surgery: No Appendectomy: No Cardiac Surgery: Yes (STENT) Cholecystectomy: No Lung Surgery: Yes (LUNG BX, LUNG CA) Neurologic Surgery: No Orthopedic Surgery: Yes (CERVICAL, LUMBAR LAMINECTOMIES) - Immunization History Immunization Up to Date: Yes - Suicide/Smoking/Psychosocial Hx Smoking Status: Yes Smoking History: Never smoked Have you smoked in the past 12 months: No Number of Cigarettes Smoked Daily: 0 If you are a former smoker, when did you quit?: 2015 Cigars Per Day: 0 Information on smoking cessation initiated: No 'Breaking Loose' booklet given: 09/29/14 Hx Alcohol Use: No Drug/Substance Use Hx: No Substance Use Type: None Hx Substance Use Treatment: No Review of Systems - Review of Systems Comments:: 10/13/17 04:11 CONSTITUTIONAL: Positive: Diaphoresis Absent: fever, chills, generalized weakness, malaise, loss of appetite HEENT: Absent: rhinorrhea, nasal congestion, throat pain, throat swelling, difficulty swallowing, mouth swelling, ear pain, eye pain, visual Changes CARDIOVASCULAR: Positive: Chest pain Absent: syncope, palpitations, irregular heart rate, lightheadedness, peripheral edema RESPIRATORY: Positive: Shortness of breath, dyspnea with exertion, orthopnea, wheezing, Absent: cough, stridor, hemoptysis GASTROINTESTINAL: Absent: abdominal pain, abdominal distension, nausea, vomiting, diarrhea, constipation, melena, hematochezia GENITOURINARY: Absent: dysuria, frequency, urgency, hesitancy, hematuria, flank pain, genital pain MUSCULOSKELETAL: Absent: myalgia, arthralgia, joint swelling SKIN: Positive: Rash on legs Absent: itching, pallor HEMATOLOGIC/IMMUNOLOGIC: Positive: easy bleeding, easy bruising, lymphadenopathy, frequent infections ENDOCRINE: Absent: unexplained weight gain, unexplained weight loss, heat intolerance, cold intolerance NEUROLOGIC: Absent: headache, focal weakness or paresthesias, dizziness, unsteady gait, seizure, mental status changes, bladder or bowel incontinence PSYCHIATRIC: Positive: Anxiety Absent: depression, suicidal or homicidal ideation, hallucinations. *Physical Exam - Vital Signs Last Vital Signs Temp Pulse Resp BP Pulse Ox 106 H 176/118 97 10/13/17 03:08 10/13/17 03:08 10/13/17 03:25 - Physical Exam Comments: 10/13/17 04:13 GENERAL: Patient is scared and thinks she is going to . She is frail and in significant distress. She is awake and alert. HEENT: Normocephalic, atraumatic. PERRLA, EOMI. No conjunctival pallor. Sclera are non- icteric. Moist mucous membranes. Oropharynx is clear. NECK: +JVD. Supple. Full ROM. CARDIOVASCULAR: Tachycardic with occasional PVC's. Distal pulses are 2+ and symmetric. PULMONARY: Significant respiratory distress. There are crackles at the bilateral lung bases. No wheezing, rales or rhonchi. ABDOMINAL: Soft. Non-tender. Non-distended. No rebound or guarding. No organomegaly. Normoactive bowel sounds. MUSCULOSKELETAL Normal range of motion at all joints. No bony deformities or tenderness. No CVA tenderness. EXTREMITIES: Right Leg has a rash that is very tender to touch. The rash No cyanosis. No clubbing. No edema. No calf tenderness. SKIN: Warm and dry. Normal capillary refill. No rashes. No jaundice. NEUROLOGICAL: Alert, awake, appropriate. Cranial nerves 2-12 intact. Normal speech. PSYCHIATRIC: Cooperative. Good eye contact. Appropriate mood and affect. 10/13/17 04:20 ED Treatment Course - LABORATORY CBC & Chemistry Diagram: 10/13/17 03:12 10/13/17 03:12 - ADDITIONAL ORDERS Additional order review: 10/13/17 03:12 RBC 4.12 MCV 93.4 MCHC 31.4 L RDW 17.7 H MPV 7.6 Neutrophils % 80.4 Lymphocytes % 13.0 D Monocytes % 4.7 D Eosinophils % 1.0 D Basophils % 0.9 D - RADIOLOGY Radiology Studies Ordered: Category Date Time Status CHEST X-RAY PORTABLE* [RAD] Stat Radiology 10/13/17 03:10 Taken Medical Decision Making - Medical Decision Making 10/13/17 03:48 77 yo F w/ a hx of COPD, aortic stenosis, CAD s/p stent and PCI, HTN, HLD, mitral insufficiency, pulmonary HTN, small cell carcinoma s/p chemo, lung CA O2 dependent, renal failure, chronic lower back pain, and hypothyroidism. Her RR was originally 46. She was originally satting at 80%, tachycardic to 126, BP of 175/115. Here in the ED after treatment with Bi-pap she is satting at 96%, RR - 25, HR - 98, BP - 144/96. She feels much better now that she is in the ED after receiving BPAP. There are crackles at the b/l lung bases. DD: COPD vs CHF. Plan: labs, urine, CXR, BPAP, steroids, duonebs, re-assess. 10/13/17 03:49 10/13/17 04:20 *DC/Admit/Observation/Transfer Diagnosis at time of Disposition: COPD (chronic obstructive pulmonary disease) - Discharge Dispostion Condition at time of disposition: Guarded Decision to Admit order: Yes - Referrals - Patient Instructions - Post Discharge Activity
[2017-10-13 03:56] LABS: ARTERIAL BLD GAS O2 SATURATION 89.3 % (90-98.9); ARTERIAL BLOOD GAS PCO2 50.2 mmHg (35-45); ARTERIAL BLOOD GAS pH 7.41 (7.35-7.45)
[2017-10-13 03:57] LABS: ALLENS TEST POSITIVE
[2017-10-13 04:03] LABS: ALK PHOS 70 U/L (45-117); N-TERMINAL BNP 98976.98 pg/ml (5-450)
[2017-10-13] MEDS ORDERED: FUROSEMIDE 40 MG/4 ML INJECTABLE VIAL IVPUSH ONE (04:38)
[2017-10-13] MEDS ORDERED: FUROSEMIDE 40 MG/4 ML INJECTABLE VIAL ONE (04:51)
[2017-10-13] MEDS ORDERED: CEFTRIAXONE 1 GM in DEXTROSE 5%-WATER - 50 ML IVPB ONE (04:55)
[2017-10-13] MEDS ORDERED: AZITHROMYCIN IVPB 500 MG in DEXTROSE 5%-WATER - 250 ML IVPB ONE (04:55)
[2017-10-13] MEDS ORDERED: SODIUM CHLORIDE 0.9% 500 ML INFUS.BAG IV ONE (04:56)
--- NOTE | 2017-10-13 05:24 | PN ---
Teaching Attending Note Name of Resident: Mingo Jean-Baptiste ATTENDING PHYSICIAN STATEMENT I saw and evaluated the patient. I reviewed the resident's note and discussed the case with the resident. I agree with the resident's findings and plan as documented. SUBJECTIVE: Patient is a 77 year old woman with history of COPD, paroxysmal afib, aortic stenosis, CAD s/p stent and PCI, HTN, HLD, mitral insufficiency, pulmonary HTN, small cell carcinoma s/p chemo, lung CA O2 dependent, CKD, chronic lower back pain, and hypothyroidism brought in by EMS for respiratory distress. She describes a feeling of impending doom and says this is it for her. She started becoming very short of breath at 10 pm, but says she has been progressively short of breath for 2 days. He says bronchodilators and oxygen did nolt help. She also has had cough productive of scanty clear sputum. She said she originally had chest pain but it went away after 10 minutes of BIPAP and being in the hospital. She got 80 mg of IV lasix in the ER and appears to be better though still on BIPAP. says she had pedal edema 2 weeks ago and improved with diuretics. She has orthopnea but denies fevers, chills, headache or dysuria. OBJECTIVE: Alert but anxious on BIPAP Vital Signs Period Temp Pulse Resp BP Sys/Kennedy Pulse Ox Last 24 Hr 106-111 23 148-176/97-118 95-97 HEENT: No Jaundice, eye redness or discharge, PERRLA, EOMI. Normocephalic, atraumatic. External ears are normal and hearing is grossly intact. No nasal discharge. Neck: Supple, nontender. No palpable adenopathy or thyromegaly. No JVD Chest: Good effort. Good air entry, diffuse rhochi, bibasilar crackles, prolonged expiration but no wheezing. Heart: Regular. No S3, rub or murmur Abdomen: Not distended, soft, nontender and no HSM. No rebound or guarding. Normoactive bowel sounds. Ext: Peripheral pulses intact. No leg edema. Very thin skin with prominent vessels. Ulcers (skin break down on both mid leg area). Skin: Warm and dry. No petechiae, rash or ecchymosis. Neuro: Alert. Oriented x3. CN 2-12 grossly intact. Sensation grossly intact in all four extremities and DTR are symmetric. Current Medications Generic Name Dose Route Start Last Admin Trade Name Erik PRN Reason Stop Dose Admin Azithromycin 500 mg/ Dextrose 250 mls @ 250 mls/hr 10/13/17 04:55 IVPB 10/13/17 05:54 ONCE ONE Ceftriaxone Sodium 1 gm/ 50 mls @ 100 mls/hr 10/13/17 04:55 Dextrose IVPB 10/13/17 05:24 ONCE ONE Home Medications Medication Instructions Recorded Ascorbate Calcium [Vitamin C] 500 mg PO DAILY 12/18/16 Calcium Carbonate [Calcium] 1,000 mg PO Q2D 12/18/16 Carvedilol [Coreg -] 12.5 mg PO BID 12/18/16 Cholecalciferol (Vitamin D3) 4,000 unit PO DAILY 12/18/16 [Vitamin D3] Guaifenesin [Mucinex -] 600 mg PO BID PRN 12/18/16 Hydrocodone/Acetaminophen 1 each PO Q4H PRN 12/18/16 [Hydrocodone-Acetamin 10-325 mg] Iron 65 mg PO DAILY 12/18/16 Levothyroxine [Synthroid -] 44 mcg PO DAILY 12/18/16 Albuterol 2.5/Ipratropium 0.5 1 amp NEB QIDR amp 12/24/16 [Duoneb -] Multivitamin [Daily Multiple 1 each PO DAILY 06/22/17 Vitamin] Thiamine HCl [Vitamin B1] 250 mg PO BID 06/22/17 Zinc 50 mg PO BID 06/22/17 Mirtazapine [Remeron -] 15 mg PO HS #30 tablet 06/27/17 Prednisone 10 mg PO BID #100 tab.ds.pk 06/27/17 Abnormal Lab Results 10/13/17 10/13/17 10/13/17 03:12 03:12 03:12 WBC 18.2 H MCHC 31.4 L RDW 17.7 H Absolute Neuts (auto) 14.7 H PTT (Actin FS) 18.8 L ABG pCO2 at Pt Temp ABG pO2 at Pt Temp ABG HCO3 ABG O2 Sat (Measured) ABG O2 Content ABG Base Excess Carbon Dioxide 33 H Anion Gap 5 L BUN 57 H Creatinine 2.3 H Random Glucose 169 H Magnesium 2.5 H Troponin I 0.10 H B-Natriuretic Peptide 98218.98 H Albumin 3.0 L 10/13/17 03:50 WBC MCHC RDW Absolute Neuts (auto) PTT (Actin FS) ABG pCO2 at Pt Temp 50.2 H ABG pO2 at Pt Temp 61.0 L ABG HCO3 31.2 H ABG O2 Sat (Measured) 89.3 L ABG O2 Content 14.4 L ABG Base Excess 6.0 H Carbon Dioxide Anion Gap BUN Creatinine Random Glucose Magnesium Troponin I B-Natriuretic Peptide Albumin ASSESSMENT AND PLAN: 1. Acute hypoxic and hypercarbic respiratory failure; COPD exacerbation and chronic lung disease likely explain the majority of her symptoms, but she may also have a contibution from poor LV function. ECHO from 06/23/17 showed EF of 44 % with wall motion abnormalities. Her CXR shows diffuse interstitial and nodular infiltrates and has not changed significantly for months. Pseudomonas was recently isolated from her sputum so we will treat with IV Zosyn, azithromycin, duoneb, solumedrol, spiriva and continue BIPAP. Will treat with IV lasix and restrict salt intake. Consult pulmnary, ID and cardiology. Very thin and friable skin likely due to chronic steroid therapy - provide wound care of leg ulcers. Continue comprehensive care of all her comorbid issues and get an EKG and UA. 2. CKD - Etiology unclear. Will consult nephrology and avoid nephrotoxic agents such as NSAIDS, aminoglycosides, contrast dyes and certain Alternative medicine products. 3. DVT prophylaxis - Heparin 5000u sq tid. 4. Advance directives - Full code
[2017-10-13] MEDS ORDERED: cefTRIAXone SODIUM 1 GM VIAL ONE (06:04)
[2017-10-13] MEDS ORDERED: AZITHROMYCIN IVPB 250 ML IVPB ONE (06:04)
[2017-10-13] MEDS ORDERED: PIPERACILLIN/TAZOB 3.375 GM 3.375 GM in DEXTROSE 5%-WATER - 50 ML IVPB ONE (06:15)
--- NOTE | 2017-10-13 06:20 | HP ---
CHIEF COMPLAINT: SOB PCP: HISTORY OF PRESENT ILLNESS: 77 yo female with PMH COPD, aortic stenosis, CAD s/p stent and PCI, HTN, HLD, mitral insufficiency, pulmonary HTN, small cell carcinoma s/p chemo, lung CA O2 dependent, renal failure, chronic lower back pain, and hypothyroidism, presented to ED for worsening SOB that began at 10pm last night. She stated at that time she felt "impending doom" as per ED staff. She was placed on bilevel ventilation and was much improved by the time I saw her. She says she had a productive cough with clear sputum earlier but that has improved. She currently states her SOB has improved, she denies chest pain, fever, chills. ER course was notable for: (1) WBC 18.2, Trop 0.1, BNP 33208 (2) SOB improved on Bilevel ventilation (3) ceftriaxone azithromycin given Recent Travel: none PAST MEDICAL HISTORY: as above PAST SURGICAL HISTORY: as above Social History: Smoking: none Alcohol: none Drugs: none Family History: Allergies No Known Allergies Allergy (Verified 10/13/17 03:23) HOME MEDICATIONS: Home Medications Medication Instructions Recorded Ascorbate Calcium [Vitamin C] 500 mg PO DAILY 12/18/16 Calcium Carbonate [Calcium] 1,000 mg PO Q2D 12/18/16 Carvedilol [Coreg -] 12.5 mg PO BID 12/18/16 Cholecalciferol (Vitamin D3) 4,000 unit PO DAILY 12/18/16 [Vitamin D3] Guaifenesin [Mucinex -] 600 mg PO BID PRN 12/18/16 Hydrocodone/Acetaminophen 1 each PO Q4H PRN 12/18/16 [Hydrocodone-Acetamin 10-325 mg] Iron 65 mg PO DAILY 12/18/16 Levothyroxine [Synthroid -] 88 mcg PO DAILY 12/18/16 Albuterol 2.5/Ipratropium 0.5 1 amp NEB QIDR amp 12/24/16 [Duoneb -] Multivitamin [Daily Multiple 1 each PO DAILY 06/22/17 Vitamin] Thiamine HCl [Vitamin B1] 250 mg PO BID 06/22/17 Zinc 50 mg PO BID 06/22/17 Mirtazapine [Remeron -] 15 mg PO HS #30 tablet 06/27/17 Budesonide [Pulmicort 0.25 mg 0.25 mg IH BID 10/13/17 Nebulizer -] Prednisone 20 mg PO BID 10/13/17 REVIEW OF SYSTEMS CONSTITUTIONAL: Absent: fever, chills, diaphoresis, generalized weakness, malaise, loss of appetite, weight change HEENT: Absent: rhinorrhea, nasal congestion, throat pain, throat swelling, difficulty swallowing, mouth swelling, ear pain, eye pain, visual changes CARDIOVASCULAR: Absent: chest pain, syncope, palpitations, irregular heart rate, lightheadedness , peripheral edema RESPIRATORY: cough, shortness of breath, Absent: dyspnea with exertion, orthopnea, wheezing, stridor, hemoptysis GASTROINTESTINAL: Absent: abdominal pain, abdominal distension, nausea, vomiting, diarrhea, constipation, melena, hematochezia GENITOURINARY: Absent: dysuria, frequency, urgency, hesitancy, hematuria, flank pain, genital pain MUSCULOSKELETAL: Absent: myalgia, arthralgia, joint swelling, back pain, neck pain SKIN: Absent: rash, itching, pallor HEMATOLOGIC/IMMUNOLOGIC: Absent: easy bleeding, easy bruising, lymphadenopathy, frequent infections ENDOCRINE: Absent: unexplained weight gain, unexplained weight loss, heat intolerance, cold intolerance NEUROLOGIC: Absent: headache, focal weakness or paresthesias, dizziness, unsteady gait, seizure, mental status changes, bladder or bowel incontinence PSYCHIATRIC: Absent: anxiety, depression, suicidal or homicidal ideation, hallucinations. PHYSICAL EXAMINATION Vital Signs - 24 hr 10/13/17 10/13/17 10/13/17 03:08 03:25 05:02 Pulse Rate 106 H Pulse Rate [ 111 H Left] Respiratory 23 Rate Blood Pressure 176/118 Blood Pressure 148/97 [Left Arm] O2 Sat by Pulse 96 97 95 Oximetry (%) GENERAL: A&O, no acute distress HEAD: Normocephalic, atraumatic. EYES: PERRL, EOMI, no scleral icterus EARS, NOSE, THROAT: oropharynx clear without exudates. Moist mucous membranes. NECK: supple without lymphadenopathy LUNGS: Bilevel ventilation, bibasilar crackles HEART:Tachycardic and regular rhythm, normal S1 and S2 without murmur, rub or gallop. ABDOMEN: Soft, nontender to palpation, normoactive bowel sounds MUSCULOSKELETAL: No bony deformities or tenderness. No CVA tenderness. UPPER EXTREMITIES: 2+ pulses, warm, well-perfused. No cyanosis. No clubbing. No peripheral edema. LOWER EXTREMITIES: 2+ pulses, warm, well-perfused. No calf tenderness. No peripheral edema. B/l ulceration on anterior shins, wrapped in clean dry dressings. NEUROLOGICAL: Cranial nerves II-XII grossly intact. Normal speech. PSYCHIATRIC: Cooperative. Good eye contact. Appropriate mood and affect. SKIN: Warm, dry, normal turgor, no rashes or lesions noted Laboratory Results - last 24 hr 10/13/17 10/13/17 10/13/17 03:12 03:12 03:12 WBC 18.2 H RBC 4.12 Hgb 12.1 Hct 38.5 D MCV 93.4 MCH 29.4 MCHC 31.4 L RDW 17.7 H Plt Count 334 D MPV 7.6 Absolute Neuts (auto) 14.7 H Neutrophils % 80.4 Lymphocytes % 13.0 D Monocytes % 4.7 D Eosinophils % 1.0 D Basophils % 0.9 D Nucleated RBC % 0 PT with INR 10.50 INR 0.93 PTT (Actin FS) 18.8 L Puncture Site ABG pH ABG pCO2 at Pt Temp ABG pO2 at Pt Temp ABG HCO3 ABG O2 Sat (Measured) ABG O2 Content ABG Base Excess Parrish Test O2 Delivery Device Oxygen Flow Rate Vent Rate PEEP Pressure Support Vent Sodium 144 Potassium 4.8 Chloride 106 Carbon Dioxide 33 H Anion Gap 5 L BUN 57 H Creatinine 2.3 H Creat Clearance w eGFR 20.56 Random Glucose 169 H Calcium 9.6 Phosphorus 3.7 Magnesium 2.5 H Total Bilirubin 0.4 AST 29 ALT 39 Alkaline Phosphatase 70 Creatine Kinase 32 Troponin I 0.10 H B-Natriuretic Peptide 80467.98 H Total Protein 7.0 Albumin 3.0 L 10/13/17 03:50 WBC RBC Hgb Hct MCV MCH MCHC RDW Plt Count MPV Absolute Neuts (auto) Neutrophils % Lymphocytes % Monocytes % Eosinophils % Basophils % Nucleated RBC % PT with INR INR PTT (Actin FS) Puncture Site Right radial ABG pH 7.41 ABG pCO2 at Pt Temp 50.2 H ABG pO2 at Pt Temp 61.0 L ABG HCO3 31.2 H ABG O2 Sat (Measured) 89.3 L ABG O2 Content 14.4 L ABG Base Excess 6.0 H Parrish Test Positive O2 Delivery Device Bpap Oxygen Flow Rate 30 Vent Rate 14 PEEP 5.0 Pressure Support Vent 10 Sodium Potassium Chloride Carbon Dioxide Anion Gap BUN Creatinine Creat Clearance w eGFR Random Glucose Calcium Phosphorus Magnesium Total Bilirubin AST ALT Alkaline Phosphatase Creatine Kinase Troponin I B-Natriuretic Peptide Total Protein Albumin ASSESSMENT/PLAN: 77 yo female with PMH COPD, aortic stenosis, CAD s/p stent and PCI, HTN, HLD, mitral insufficiency, pulmonary HTN, small cell carcinoma s/p chemo, lung CA O2 dependent, renal failure, chronic lower back pain, and hypothyroidism, admitted to telemetry with COPD exacerbation secondary to pneumonia vs acute on chronic CHF. COPD exacerbation -Pt SOB, improved on bilevel, saturating well now -CXR noted, minimal change from earlier this year, no clear pneumonia noted -Pt meets SIRS criteria with WBC 18.2 and Tachycardia 111, source of infection not clear at this time -Urine and blood c/s ordered -Lactic acid ordered -Rocephin/azithro given in ED -Pt has recent history of pseudomonas on sputum c/s -will switch to Zosyn 3.375 mg IV Q8 and Azithromycin 500 mg IV Daily -ID consult ordered -Duonebs Q4 -Symbicort 2 puffs BID -Solumedrol 40 mg IV Daily -Pulmonology consult ordered -Hx SCC noted CHF -recent echo with EF 40% -Bibasilar crackles noted, could be part of her chronic lung disease -Lasix 80mg IV given in ED with improvement of symptoms, though pt also started on bilevel, so etiology of SOB somewhat unclear -Cardiology consulted -will await evaluation for recommendation with lasix Hypothyroidism -Synthroid 88 mcg PO Daily DVT prophylaxis -Heparin 5000 SQ TID FEN -no fluids -No electrolyte abnormalities, BMP in AM -NPO except ice chips on Bipap Disposition Telemetry Visit type - Emergency Visit Emergency Visit: Yes Care time: The patient presented to the Emergency Department on the above date and was hospitalized for further evaluation of their emergent condition. - New Patient This patient is new to me today: Yes Date on this admission: 10/13/17 - Critical Care Critical Care patient: No Hospitalist Screening - Colonoscopy Questionnaire Colonoscopy Questionnaire: Colonoscopy Questionnaire - Patient: 50 - 75 years old and never had a screening colonoscopy: No History of colon or rectal polyps, or CA: No History of IBD, Crohn's disease or UC: No History of abdominal radiation therapy as a child: No - Relative: 1 with colon or rectal CA, or polyps at age 60 or younger: No Colon or rectal CA diagnosed at age 45 or younger: No Multiple relatives with colon or rectal CA: No - Outcome: Screening Result: Negative Screen
[2017-10-13] MEDS: HEPARIN NA (PORCINE) 5,000 UNITS/ML 1ML VIAL SQ SCH ×3 (06:31→21:10)
[2017-10-13] MEDS ORDERED: HEPARIN NA (PORCINE) 5,000 UNITS/ML 1ML VIAL ONE (06:33)
[2017-10-13] MEDS ORDERED: PIPERACILLIN/TAZOB 3.375 GM 3.375 GM/50 ML BAG IVPB ONE ×2 (07:38→17:01)
[2017-10-13] MEDS ORDERED: ALBUTEROL SO4 2.5/IPRATROPIUM 0.5 INH SOL 3 ML VIAL.NEB. NEB ONE ×3 (07:38→17:01)
[2017-10-13] MEDS: ALBUTEROL SO4 2.5/IPRATROPIUM 0.5 INH SOL 3 ML VIAL.NEB. NEB SCH ×4 (07:57→20:50)
--- NOTE | 2017-10-13 09:29 | PN ---
Progress Note, Physician History of Present Illness: 77 yo female with PMH COPD, aortic stenosis, CAD s/p stent and PCI, HTN, HLD, mitral insufficiency, pulmonary HTN, small cell carcinoma s/p chemo, lung CA O2 dependent, renal failure, chronic lower back pain, and hypothyroidism, admitted to telemetry with COPD exacerbation secondary to pneumonia vs acute on chronic CHF. - Current Medication List Current Medications: Active Medications Acetaminophen (Tylenol -) 325 mg PO Q4H PRN PRN Reason: PAIN LEVEL 6-10 Stop: 10/16/17 06:27 Albuterol/Ipratropium (Duoneb -) 1 amp NEB RQID [facility] Last Admin: 10/13/17 07:57 Dose: 1 amp Budesonide/Formoterol Fumarate (Symbicort 160/4.5mcg -) 2 puff IH BID [facility] Carvedilol (Coreg -) 12.5 mg PO BID [facility] Citalopram Hydrobromide (Celexa -) 40 mg PO DAILY [facility] Diazepam (Valium -) 2 mg PO DAILY [facility] Heparin Sodium (Porcine) (Heparin -) 5,000 unit SQ TID [facility] Last Admin: 10/13/17 06:31 Dose: 5,000 unit Azithromycin 500 mg/ Dextrose 250 mls @ 250 mls/hr IVPB DAILY [facility] Piperacillin Sod/Tazobactam (Sod 3.375 gm/ Dextrose) 50 mls @ 100 mls/hr IVPB Q8H-IV [facility]; Protocol Levothyroxine Sodium (Synthroid -) 88 mcg PO DAILY@0700 [facility] Magnesium Oxide (Mag-Ox -) 400 mg PO BID [facility] Methylprednisolone Sodium Succinate (Solu-Medrol -) 40 mg IVPUSH Q6H-IV [facility] Mirtazapine (Remeron -) 15 mg PO HS [facility] Multivitamins/Minerals/Vitamin C (Tab-A-Vit -) 1 tab PO DAILY [facility] Oxycodone HCl (Roxicodone -) 5 mg PO Q4H PRN PRN Reason: PAIN LEVEL 6-10 - Objective Vital Signs: Vital Signs Temperature 97.9 F 10/13/17 07:32 Pulse Rate 106 H 10/13/17 07:32 Respiratory Rate 23 10/13/17 05:02 Blood Pressure 135/81 10/13/17 07:32 O2 Sat by Pulse Oximetry (%) 95 10/13/17 07:32 Cardiovascular: Yes: S1, S2 Respiratory: Yes: Diminished, On Venti-Mask, Rales, Rhonchi Gastrointestinal: Yes: Normal Bowel Sounds, Soft Labs: CBC, BMP 10/13/17 03:12 10/13/17 03:12 INR, PTT INR 0.93 (0.83-1.09) 10/13/17 03:12 Problem List - Problems (1) COPD (chronic obstructive pulmonary disease) Assessment/Plan: -Bipap--ICU -Pt meets SIRS criteria with WBC 18.2 and Tachycardia 111, source of infection not clear at this time -Urine and blood c/s ordered -Lactic acid ordered -Rocephin/azithro given in ED -Pt has recent history of pseudomonas on sputum c/s - Zosyn 3.375 mg IV Q8 and Azithromycin 500 mg IV Daily -ID consult ordered -Duonebs Q4 -Solumedrol 40 mg IV q 6hrs -Pulmonology consult ordered -Hx SCC noted Code(s): J44.9 - CHRONIC OBSTRUCTIVE PULMONARY DISEASE, UNSPECIFIED Qualifiers: (2) Acute hypoxemic respiratory failure Assessment/Plan: -as above Code(s): J96.01 - ACUTE RESPIRATORY FAILURE WITH HYPOXIA (3) CHF (congestive heart failure) Assessment/Plan: -recent echo with EF 40% -Bibasilar crackles noted, could be part of her chronic lung disease -Lasix 80mg IV given in ED with improvement of symptoms, though pt also started on bilevel, so etiology of SOB somewhat unclear -Cardiology consulted -will await evaluation for recommendation with lasix Code(s): I50.9 - HEART FAILURE, UNSPECIFIED Qualifiers: Heart failure type: systolic Heart failure chronicity: acute on chronic Qualified Code(s): I50.23 - Acute on chronic systolic (congestive) heart failure (4) Anemia Assessment/Plan: -Follow labs Code(s): D64.9 - ANEMIA, UNSPECIFIED Qualifiers: Anemia type: due to chronic kidney disease Chronic kidney disease stage: unspecified stage Qualified Code(s): N18.9 - Chronic kidney disease, unspecified (5) CKD (chronic kidney disease) Assessment/Plan: -Monitor Code(s): N18.9 - CHRONIC KIDNEY DISEASE, UNSPECIFIED
[2017-10-13] MEDS: AZITHROMYCIN IVPB 500 MG in DEXTROSE 5%-WATER - 250 ML IVPB SCH (09:39)
[2017-10-13] MEDS ORDERED: MUPIROCIN 2% TOPICAL OINTMENT FOR DECOLONIZATION NS SCH (10:00)
[2017-10-13] MEDS ORDERED: methylPREDNISolone NA SUCC 40 MG/1 ML VIAL IVPUSH SCH (10:00)
[2017-10-13] MEDS: MAGNESIUM OXIDE 400 MG TABLET (FP) PO SCH ×2 (10:23→21:12)
[2017-10-13] MEDS: CITALOPRAM HYDROBROMIDE 20 MG TABLET (FP) PO SCH (10:23)
[2017-10-13] MEDS: MULTIVITAMINS (DAILY MVI) TABLET (FP) PO SCH (10:23)
[2017-10-13] MEDS: CARVEDILOL 12.5 MG TABLET (FP) PO SCH ×2 (10:23→21:11)
[2017-10-13] MEDS: LEVOTHYROXINE NA 88 MCG TABLET (FP) PO SCH (10:23)
[2017-10-13] MEDS: BUDESONIDE/FORMETEROL FUMARATE 160/4.5 mcg INHALER IH SCH ×2 (10:24→23:53)
[2017-10-13] MEDS: diazePAM 2 MG TABLET PO SCH (10:24)
[2017-10-13] MEDS ORDERED: methylPREDNISolone NA SUCC 40 MG/1 ML VIAL ONE ×2 (10:28→14:10)
[2017-10-13] MEDS: methylPREDNISolone NA SUCC 40 MG/1 ML VIAL IVPUSH SCH ×3 (10:30→21:08)
[2017-10-13 10:40] LABS: BASO % 0.1 % (0-2.0); HEMATOCRIT 36.9 % (32.4-45.2); HEMOGLOBIN 11.8 GM/dL (10.7-15.3); LYMPH % 5.7 % (8-40); MCH 29.2 pg (25.7-33.7); MCHC 31.9 g/dl (32.0-36.0); MEAN CELL VOLUME 91.6 fl (80-96); MEAN PLT VOLUME 8.2 fl (7.5-11.1); MONO % 0.6 % (3.8-10.2); NEUT % 93.6 % (42.8-82.8); PLATELET COUNT 261 K/MM3 (134-434); RBC 4.03 M/mm3 (3.60-5.2); RDW 17.2 % (11.6-15.6); WHITE BLOOD COUNT 13.3 K/mm3 (4.0-10.0)
[2017-10-13 11:01] LABS: ALBUMIN 2.9 g/dl (3.4-5.0); ALK PHOS 65 U/L (45-117); ANION GAP 6 (8-16); BILIRUBIN,TOTAL 0.4 mg/dL (0.2-1.0); BLOOD UREA NITROGEN 57 mg/dL (7-18); CALCIUM 9.8 mg/dL (8.5-10.1); CHLORIDE 102 mmol/L (98-107); CO2 35 mmol/L (21-32); CREATININE 2.3 mg/dL (0.55-1.02); GLUCOSE,RANDOM 164 mg/dL (74-106); POTASSIUM 4.6 mmol/L (3.5-5.1); SGOT/AST 23 U/L (15-37); SGPT/ALT 35 U/L (12-78); SODIUM 143 mmol/L (136-145); TOT PROT 6.8 g/dl (6.4-8.2)
[2017-10-13 11:03] LABS: MAGNESIUM 2.4 mg/dL (1.8-2.4)
--- NOTE | 2017-10-13 11:04 | EKG ---
Test Reason : Blood Pressure : / mmHG Vent. Rate : 110 BPM Atrial Rate : 110 BPM P-R Int : 146 ms QRS Dur : 086 ms QT Int : 302 ms P-R-T Axes : 072 -17 081 degrees QTc Int : 408 ms SINUS TACHYCARDIA WITH FREQUENT PREMATURE VENTRICULAR COMPLEXES POSSIBLE LEFT ATRIAL ENLARGEMENT NONSPECIFIC ST AND T WAVE ABNORMALITY ABNORMAL ECG Confirmed by RICARDO THOMPSON MD ([id number]) on 10/13/2017 11:03:31 AM Referred By: Confirmed By:RICARDO THOMPSON MD
[2017-10-13 11:08] LABS: PHOSPHOROUS 2.8 mg/dL (2.5-4.9)
[2017-10-13 11:44] LABS: ARTERIAL BLD GAS O2 SATURATION 95.3 % (90-98.9); ARTERIAL BLOOD GAS BASE EXCESS 8.7 meq/l (-2-2); ARTERIAL BLOOD GAS PCO2 44.5 mmHg (35-45); ARTERIAL BLOOD GAS PO2 86.3 mmHg (70-100); ARTERIAL BLOOD GAS pH 7.48 (7.35-7.45)
[2017-10-13 11:45] LABS: ALLENS TEST POSITIVE
[2017-10-13 12:03] LABS: URINE APPEARANCE CLEAR; URINE BILIRUBIN NEGATIVE (<2.0 mg/dL); URINE COLOR STRAW; URINE GLUCOSE (UA) NEGATIVE (NEGATIVE); URINE KETONE NEGATIVE (NEGATIVE); URINE LEUK ESTERASE NEGATIVE (NEGATIVE); URINE NITRITE NEGATIVE (NEGATIVE); URINE PROTEIN NEGATIVE (NEGATIVE); URINE UROBILINOGEN NEGATIVE mg/dL (0.2-1.0)
--- NOTE | 2017-10-13 13:09 | CON.PULM ---
Consult Consult Specialty:: PULM/CCM Referred by:: NELSON Reason for Consultation:: SOB - History of Present Illness Chief Complaint: SOB History of Present Illness: 77 F, well known to our service. Advanced O2 dependent COPD/Emphysema, Aortic stenosis, CAD S/P PCI, HTN, HLD, mitral insufficiency, Pulmonary HTN, small cell carcinoma s/p chemo/RT, renal failure, chronic lower back pain, and hypothyroidism. Admitted via the ER due to progressive SOB that started last night. No travel history or sick contacts. No fever or chills. No hemoptysis. Due to severe respiratory distress, she required NIPPV support. She received 80mg Lasix IVP and now feels clinically improved. She does have a history of chronic bronchitis, so she does cough everyday with sputum production. CXR: increased pulmonary vascular markings / possible fluid or infiltrate in the right fissure - History Source History Provided By: Patient Limitations to Obtaining History: No Limitations - Past Medical History Cardio/Vascular: Yes: Aortic Stenosis, CAD (with coronary stenting), HTN, Hyperlipdemia, Mitral Insufficiency, Pulmonary Hypertension Pulmonary: Yes: Cancer (Chemothrerapy for small cell carcinoma- Dr Simpson), COPD, O2 Dependent, Pneumonia. No: Pulmonary Embolus, Sleep Apnea Gastrointestinal: Yes: Diverticulosis, Other (Breast lumpectomy) Renal/: Yes: Renal Failure, Renal Inusuff Psych: Yes: Anxiety Musculoskeletal: Yes: Chronic low back pain, Osteoarthritis Endocrine: Yes: Hypothyroidism, Osteopenia - Past Surgical History Past Surgical History: Yes: Laminectomy (cervical '99, lumbar '97), Stent, Tonsillectomy, Tubal Ligation - Alcohol/Substance Use Hx Alcohol Use: No Date of Last Use: 02/27/81 - Smoking History Smoking history: Never smoked Have you smoked in the past 12 months: No Aproximately how many cigarettes per day: 0 If you are a former smoker, when did you quit?: 2014 - Social History Usual Living Arrangement: With Spouse ADL: Independent 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 History of Recent Travel: No Home Medications - Allergies Allergies/Adverse Reactions: Allergies Allergy/AdvReac Type Severity Reaction Status Date / Time No Known Allergies Allergy Verified 10/13/17 03:23 - Home Medications Home Medications: Ambulatory Orders Carvedilol [Coreg -] 12.5 mg PO BID 12/18/16 Hydrocodone/Acetaminophen [Hydrocodone-Acetamin 10-325 mg] 1 each PO Q4H PRN Levothyroxine [Synthroid -] 88 mcg PO DAILY 12/18/16 Multivitamin [Daily Multiple Vitamin] 1 each PO DAILY 06/22/17 Mirtazapine [Remeron -] 15 mg PO HS #30 tablet 06/27/17 Budesonide [Pulmicort 0.25 mg Nebulizer -] 0.25 mg IH BID 10/13/17 Citalopram Hydrobromide [Citalopram HBr] 40 mg PO DAILY 10/13/17 Diazepam [Valium] 2 mg PO DAILY 10/13/17 Furosemide [Lasix] 40 mg PO DAILY 10/13/17 Magnesium Oxide [Mag-Ox -] 400 mg PO BID 10/13/17 Mirtazapine 15 mg PO HS 10/13/17 Prednisone 20 mg PO BID 10/13/17 Family Disease History - Family Disease History Family Disease History: CA: Father (diffuse unknown primary), Sister ( of lung cancer), Other: Mother ( after hip fracture) Review of Systems - Review of Systems Constitutional: reports: Malaise. denies: Chills, Fever, Night Sweats Eyes: reports: No Symptoms HENT: reports: No Symptoms Neck: reports: No Symptoms Cardiovascular: reports: Edema, Palpitations. denies: Chest Pain, Shortness of Breath Respiratory: reports: Cough, SOB, SOB on Exertion, Wheezing. denies: Hemoptysis , Snoring Gastrointestinal: reports: No Symptoms Genitourinary: reports: No Symptoms Breasts: reports: No Symptoms Reported Musculoskeletal: reports: Back Pain Integumentary: reports: No Symptoms Neurological: reports: No Symptoms Endocrine: reports: No Symptoms Hematology/Lymphatic: reports: No Symptoms Psychiatric: reports: No Symptoms Physical Exam Vital Sings: Vital Signs Temperature 97.9 F 10/13/17 07:32 Pulse Rate 100 H 10/13/17 10:30 Respiratory Rate 13 10/13/17 10:30 Blood Pressure 126/96 10/13/17 10:30 O2 Sat by Pulse Oximetry (%) 96 10/13/17 10:30 Constitutional: Yes: Mild Distress, Thin Eyes: Yes: Conjunctiva Clear, EOM Intact HENT: Yes: Atraumatic, Normocephalic Neck: Yes: Supple, Trachea Midline Cardiovascular: Yes: Tachycardia Respiratory: Yes: Cough, Diminished, On BiPap, Rales, Rhonchi, SOB, Tachypnea. No: Accessory Muscle Use, Stridor, Wheezes ...Inspection: Yes: WNL ...Clubbing: No Gastrointestinal: Yes: Normal Bowel Sounds, Soft Renal/: Yes: WNL Musculoskeletal: Yes: WNL Extremities: Yes: WNL Edema: Yes Peripheral Pulses WNL: No Integumentary: Yes: Bruising, Erythema, Skin Tear, Venous Stasis Changes Neurological: Yes: Alert, Oriented ...Motor Strength: WNL Psychiatric: Yes: WNL, Alert, Oriented Labs: CBC, BMP 10/13/17 09:28 10/13/17 09:28 ABG Results ABG pH 7.48 (7.35-7.45) H 10/13/17 09:27 ABG pCO2 at Pt Temp 44.5 mmHg (35-45) 10/13/17 09:27 ABG pO2 at Pt Temp 86.3 mmHg (70-100) D 10/13/17 09:27 ABG HCO3 33.0 meq/L (22-26) H 10/13/17 09:27 ABG O2 Sat (Measured) 95.3 % (90-98.9) 10/13/17 09:27 ABG O2 Content 15.8 % vol (15-22) 10/13/17 09:27 ABG Base Excess 8.7 meq/l (-2-2) H 10/13/17 09:27 Imaging - Results Chest X-ray: Report Reviewed, Image Reviewed Problem List - Problems (1) COPD (chronic obstructive pulmonary disease) Code(s): J44.9 - CHRONIC OBSTRUCTIVE PULMONARY DISEASE, UNSPECIFIED Qualifiers: (2) ASHD (arteriosclerotic heart disease) Code(s): I25.10 - ATHSCL HEART DISEASE OF [place] CORONARY ARTERY W/O ANG PCTRS (3) Acute hypoxemic respiratory failure Code(s): J96.01 - ACUTE RESPIRATORY FAILURE WITH HYPOXIA (4) Anemia Code(s): D64.9 - ANEMIA, UNSPECIFIED Qualifiers: Anemia type: due to chronic kidney disease Chronic kidney disease stage: unspecified stage Qualified Code(s): N18.9 - Chronic kidney disease, unspecified (5) Aortic stenosis Code(s): I35.0 - NONRHEUMATIC AORTIC (VALVE) STENOSIS Qualifiers: Cardiac valve disease etiology: nonrheumatic Qualified Code(s): I35.0 - Nonrheumatic aortic (valve) stenosis (6) CAD (coronary artery disease) Code(s): I25.10 - ATHSCL HEART DISEASE OF [place] CORONARY ARTERY W/O ANG PCTRS Qualifiers: Coronary Disease-Associated Artery/Lesion type: [place] artery [place] vs. transplanted heart: [place] heart Associated angina: without angina Qualified Code(s): I25.10 - Atherosclerotic heart disease of [place] coronary artery without angina pectoris (7) CHF (congestive heart failure) Code(s): I50.9 - HEART FAILURE, UNSPECIFIED Qualifiers: Heart failure type: systolic Heart failure chronicity: acute on chronic Qualified Code(s): I50.23 - Acute on chronic systolic (congestive) heart failure (8) CKD (chronic kidney disease) Code(s): N18.9 - CHRONIC KIDNEY DISEASE, UNSPECIFIED (9) Chronic hypoxemic respiratory failure Code(s): J96.11 - CHRONIC RESPIRATORY FAILURE WITH HYPOXIA (10) Cough Code(s): R05 - COUGH (11) Edema extremities Code(s): R60.0 - LOCALIZED EDEMA (12) HTN (hypertension) Code(s): I10 - ESSENTIAL (PRIMARY) HYPERTENSION Qualifiers: Hypertension type: essential hypertension Qualified Code(s): I10 - Essential (primary) hypertension (13) Hypothyroid Code(s): E03.9 - HYPOTHYROIDISM, UNSPECIFIED Qualifiers: Hypothyroidism type: unspecified Qualified Code(s): E03.9 - Hypothyroidism , unspecified (14) Lung cancer Code(s): C34.90 - MALIGNANT NEOPLASM OF UNSP PART OF UNSP BRONCHUS OR LUNG Qualifiers: Lung location: unspecified part of lung (15) Neuropathy Code(s): G62.9 - POLYNEUROPATHY, UNSPECIFIED (16) Pneumonia Code(s): J18.9 - PNEUMONIA, UNSPECIFIED ORGANISM Qualifiers: Pneumonia type: due to unspecified organism (17) Tachycardia Code(s): R00.0 - TACHYCARDIA, UNSPECIFIED Assessment/Plan Trial of VM O2 with NIPPV as backup Daily weight ABX per ID Agree with Medrol for now: previous wheezing heard has improved BD TX QID Follow cultures VTE prophylaxis No smoking discussed Cardiac Telemetry monitoring Will follow Thank you. Dr Henriquez
[2017-10-13 14:25] LABS: ANISOCYTOSIS 1+; MACROCYTOSIS 0; PLATELET ESTIMATE NORMAL
--- NOTE | 2017-10-13 16:33 | PN ---
Progress Note (short form) - Note Progress Note: ID consult dictated imp/reccd 77 year old female with copd admitted with worsening repiratory symptoms, sob and cough, no fevers at home brown sputum no blood copd on home oxygen prior history of pseudomonas agree wtih zosyn/zithromax check cultures legionella urinary antigen
[2017-10-13] MEDS: PIPERACILLIN/TAZOB 3.375 GM 3.375 GM in DEXTROSE 5%-WATER - 50 ML IVPB SCH (17:11)
[2017-10-13] MEDS: ACETAMINOPHEN 325 MG TABLET (FP) PO PRN (21:11)
[2017-10-13] MEDS: oxyCODONE HCL 5 MG TABLET PO PRN (21:12)
[2017-10-13] MEDS ORDERED: MIRTAZAPINE 15 MG TABLET (FP) PO SCH (22:00)
[2017-10-13] MEDS ORDERED: CHLORHEXIDINE GLUCONATE 4% CLEANSER FOR DECOLONIZATION TP SCH (22:00)
[2017-10-13 22:57] VITALS: BMI 23.8
[2017-10-13] MEDS ORDERED: PT OWN MED DRAWER 7, Y5N ONE (23:55)
[2017-10-14] MEDS ORDERED: DEXTROSE 5%-WATER - 50 ML IVPB ONE ×3 (00:57→16:51)
[2017-10-14] MEDS ORDERED: PIPERACILLIN/TAZOBACTAM 3.375 GM VIAL IVPB ONE ×3 (00:57→16:50)
[2017-10-14] MEDS: PIPERACILLIN/TAZOB 3.375 GM 3.375 GM in DEXTROSE 5%-WATER - 50 ML IVPB SCH ×3 (02:12→17:11)
[2017-10-14] MEDS: methylPREDNISolone NA SUCC 40 MG/1 ML VIAL IVPUSH SCH ×3 (02:13→17:03)
[2017-10-14] MEDS: HEPARIN NA (PORCINE) 5,000 UNITS/ML 1ML VIAL SQ SCH ×3 (07:41→21:14)
[2017-10-14] MEDS: LEVOTHYROXINE NA 88 MCG TABLET (FP) PO SCH (07:41)
[2017-10-14] MEDS: ALBUTEROL SO4 2.5/IPRATROPIUM 0.5 INH SOL 3 ML VIAL.NEB. NEB SCH ×4 (08:14→20:36)
--- NOTE | 2017-10-14 08:52 | PN ---
Progress Note, Physician - Current Medication List Current Medications: Active Medications Acetaminophen (Tylenol -) 325 mg PO Q4H PRN PRN Reason: PAIN LEVEL 6-10 Stop: 10/16/17 06:27 Last Admin: 10/13/17 21:11 Dose: 325 mg Albuterol/Ipratropium (Duoneb -) 1 amp NEB RQID [facility] Last Admin: 10/14/17 08:14 Dose: 1 amp Budesonide/Formoterol Fumarate (Symbicort 160/4.5mcg -) 2 puff IH BID [facility] Last Admin: 10/13/17 23:53 Dose: 2 puff Carvedilol (Coreg -) 12.5 mg PO BID [facility] Last Admin: 10/13/17 21:11 Dose: 12.5 mg Citalopram Hydrobromide (Celexa -) 40 mg PO DAILY [facility] Last Admin: 10/13/17 10:23 Dose: 40 mg Diazepam (Valium -) 2 mg PO DAILY [facility] Heparin Sodium (Porcine) (Heparin -) 5,000 unit SQ TID [facility] Last Admin: 10/14/17 07:41 Dose: 5,000 unit Azithromycin 500 mg/ Dextrose 250 mls @ 250 mls/hr IVPB DAILY [facility] Last Admin: 10/13/17 09:39 Dose: 250 mls/hr Piperacillin Sod/Tazobactam (Sod 3.375 gm/ Dextrose) 50 mls @ 100 mls/hr IVPB Q8H-IV [facility]; Protocol Last Admin: 10/14/17 02:12 Dose: 100 mls/hr Levothyroxine Sodium (Synthroid -) 88 mcg PO DAILY@0700 [facility] Last Admin: 10/14/17 07:41 Dose: 88 mcg Magnesium Oxide (Mag-Ox -) 400 mg PO BID [facility] Last Admin: 10/13/17 21:12 Dose: 400 mg Methylprednisolone Sodium Succinate (Solu-Medrol -) 40 mg IVPUSH Q6H-IV [facility] Last Admin: 10/14/17 02:13 Dose: 40 mg Mirtazapine (Remeron -) 15 mg PO HS [facility] Last Admin: 10/13/17 21:12 Dose: 15 mg Multivitamins/Minerals/Vitamin C (Tab-A-Vit -) 1 tab PO DAILY [facility] Last Admin: 10/13/17 10:23 Dose: 1 tab Oxycodone HCl (Roxicodone -) 5 mg PO Q4H PRN PRN Reason: PAIN LEVEL 6-10 Last Admin: 10/13/17 21:12 Dose: 5 mg - Objective Vital Signs: Vital Signs Temperature 98.1 F 10/14/17 05:30 Pulse Rate 89 10/14/17 05:30 Respiratory Rate 20 10/14/17 05:30 Blood Pressure 136/88 10/14/17 05:30 O2 Sat by Pulse Oximetry (%) 96 10/14/17 04:42 Labs: CBC, BMP 10/13/17 09:28 10/13/17 09:28 INR, PTT INR 0.93 (0.83-1.09) 10/13/17 03:12 Problem List - Problems (1) COPD (chronic obstructive pulmonary disease) Code(s): J44.9 - CHRONIC OBSTRUCTIVE PULMONARY DISEASE, UNSPECIFIED Qualifiers: (2) Acute hypoxemic respiratory failure Code(s): J96.01 - ACUTE RESPIRATORY FAILURE WITH HYPOXIA (3) CHF (congestive heart failure) Code(s): I50.9 - HEART FAILURE, UNSPECIFIED Qualifiers: Heart failure type: systolic Heart failure chronicity: acute on chronic Qualified Code(s): I50.23 - Acute on chronic systolic (congestive) heart failure (4) Anemia Code(s): D64.9 - ANEMIA, UNSPECIFIED Qualifiers: Anemia type: due to chronic kidney disease Chronic kidney disease stage: unspecified stage Qualified Code(s): N18.9 - Chronic kidney disease, unspecified (5) CKD (chronic kidney disease) Code(s): N18.9 - CHRONIC KIDNEY DISEASE, UNSPECIFIED
[2017-10-14] MEDS ORDERED: PT OWN MED DRAWER 7, Y5N ONE ×2 (10:00→20:19)
[2017-10-14] MEDS: AZITHROMYCIN IVPB 500 MG in DEXTROSE 5%-WATER - 250 ML IVPB SCH (10:08)
[2017-10-14] MEDS: MULTIVITAMINS (DAILY MVI) TABLET (FP) PO SCH (10:09)
[2017-10-14] MEDS: CARVEDILOL 12.5 MG TABLET (FP) PO SCH ×2 (10:09→21:14)
[2017-10-14] MEDS: MAGNESIUM OXIDE 400 MG TABLET (FP) PO SCH ×2 (10:09→21:14)
[2017-10-14] MEDS: BUDESONIDE/FORMETEROL FUMARATE 160/4.5 mcg INHALER IH SCH ×2 (10:09→21:14)
[2017-10-14] MEDS: CITALOPRAM HYDROBROMIDE 20 MG TABLET (FP) PO SCH (10:09)
[2017-10-14] MEDS: diazePAM 2 MG TABLET PO SCH (10:09)
--- NOTE | 2017-10-14 11:35 | PN ---
Progress Note, Physician History of Present Illness: 77 yo female with PMH COPD, aortic stenosis, CAD s/p stent and PCI, HTN, HLD, mitral insufficiency, pulmonary HTN, small cell carcinoma s/p chemo, lung CA O2 dependent, renal failure, chronic lower back pain, and hypothyroidism, admitted to telemetry with COPD exacerbation secondary to pneumonia vs acute on chronic CHF. - Current Medication List Current Medications: Active Medications Acetaminophen (Tylenol -) 325 mg PO Q4H PRN PRN Reason: PAIN LEVEL 6-10 Stop: 10/16/17 06:27 Last Admin: 10/13/17 21:11 Dose: 325 mg Albuterol/Ipratropium (Duoneb -) 1 amp NEB RQID [facility] Last Admin: 10/14/17 08:14 Dose: 1 amp Budesonide/Formoterol Fumarate (Symbicort 160/4.5mcg -) 2 puff IH BID [facility] Last Admin: 10/14/17 10:09 Dose: 2 puff Carvedilol (Coreg -) 12.5 mg PO BID [facility] Last Admin: 10/14/17 10:09 Dose: 12.5 mg Citalopram Hydrobromide (Celexa -) 40 mg PO DAILY [facility] Last Admin: 10/14/17 10:09 Dose: 40 mg Diazepam (Valium -) 2 mg PO DAILY [facility] Last Admin: 10/14/17 10:09 Dose: 2 mg Heparin Sodium (Porcine) (Heparin -) 5,000 unit SQ TID [facility] Last Admin: 10/14/17 07:41 Dose: 5,000 unit Azithromycin 500 mg/ Dextrose 250 mls @ 250 mls/hr IVPB DAILY [facility] Last Admin: 10/14/17 10:08 Dose: 250 mls/hr Piperacillin Sod/Tazobactam (Sod 3.375 gm/ Dextrose) 50 mls @ 100 mls/hr IVPB Q8H-IV [facility]; Protocol Last Admin: 10/14/17 10:09 Dose: 100 mls/hr Levothyroxine Sodium (Synthroid -) 88 mcg PO DAILY@0700 [facility] Last Admin: 10/14/17 07:41 Dose: 88 mcg Magnesium Oxide (Mag-Ox -) 400 mg PO BID [facility] Last Admin: 10/14/17 10:09 Dose: 400 mg Methylprednisolone Sodium Succinate (Solu-Medrol -) 40 mg IVPUSH Q6H-IV [facility] Last Admin: 10/14/17 10:09 Dose: 40 mg Mirtazapine (Remeron -) 15 mg PO HS [facility] Last Admin: 10/13/17 21:12 Dose: 15 mg Multivitamins/Minerals/Vitamin C (Tab-A-Vit -) 1 tab PO DAILY [facility] Last Admin: 10/14/17 10:09 Dose: 1 tab Oxycodone HCl (Roxicodone -) 5 mg PO Q4H PRN PRN Reason: PAIN LEVEL 6-10 Last Admin: 10/13/17 21:12 Dose: 5 mg - Objective Vital Signs: Vital Signs Temperature 98.1 F 10/14/17 05:30 Pulse Rate 89 10/14/17 05:30 Respiratory Rate 20 10/14/17 05:30 Blood Pressure 136/88 10/14/17 05:30 O2 Sat by Pulse Oximetry (%) 96 10/14/17 04:42 Cardiovascular: Yes: S1, S2 Respiratory: Yes: Regular, CTA Bilaterally Gastrointestinal: Yes: Normal Bowel Sounds, Soft. No: Tenderness Labs: CBC, BMP 10/13/17 09:28 10/13/17 09:28 INR, PTT INR 0.93 (0.83-1.09) 10/13/17 03:12 Problem List - Problems (1) COPD (chronic obstructive pulmonary disease) Assessment/Plan: -Urine and blood c/s Microbiology 10/13/17 21:00 Legionella Antigen - Final Urine For Antigen Detection Streptococcus pneumoniae Antigen (M - Final 10/13/17 05:27 Urine Culture - Final Urine - Urine - Catheterized 10/13/17 05:00 Blood Culture - Preliminary Blood - Peripheral Venous NO GROWTH OBTAINED AFTER 24 HOURS, INCUBATION TO CONTINUE FOR 4 DAYS. 10/13/17 04:42 Blood Culture - Preliminary Blood - Peripheral Venous NO GROWTH OBTAINED AFTER 24 HOURS, INCUBATION TO CONTINUE FOR 4 DAYS. -Pt has recent history of pseudomonas on sputum c/s - Zosyn 3.375 mg IV Q8 and Azithromycin 500 mg IV Daily -ID consult ordered -Duonebs Q4 -Solumedrol 40 mg IV q 6hrs -Pulmonology consult ordered -Hx SCC noted Code(s): J44.9 - CHRONIC OBSTRUCTIVE PULMONARY DISEASE, UNSPECIFIED Qualifiers: (2) Acute hypoxemic respiratory failure Assessment/Plan: -as above Code(s): J96.01 - ACUTE RESPIRATORY FAILURE WITH HYPOXIA (3) CHF (congestive heart failure) Assessment/Plan: -recent echo with EF 40% -Bibasilar crackles noted, could be part of her chronic lung disease -Lasix 80mg IV given in ED with improvement of symptoms, though pt also started on bilevel, so etiology of SOB somewhat unclear -Lasix 40 iv daily Code(s): I50.9 - HEART FAILURE, UNSPECIFIED Qualifiers: Heart failure type: systolic Heart failure chronicity: acute on chronic Qualified Code(s): I50.23 - Acute on chronic systolic (congestive) heart failure (4) Anemia Assessment/Plan: -Follow labs Code(s): D64.9 - ANEMIA, UNSPECIFIED Qualifiers: Anemia type: due to chronic kidney disease Chronic kidney disease stage: unspecified stage Qualified Code(s): N18.9 - Chronic kidney disease, unspecified (5) CKD (chronic kidney disease) Assessment/Plan: -Monitor Code(s): N18.9 - CHRONIC KIDNEY DISEASE, UNSPECIFIED
--- NOTE | 2017-10-14 12:27 | PN ---
Progress Note (short form) - Note Progress Note: PULMONARY Subjective improvement VSS Constitutional: Yes: Mild Distress, Thin Eyes: Yes: Conjunctiva Clear, EOM Intact HENT: Yes: Atraumatic, Normocephalic Neck: Yes: Supple, Trachea Midline Cardiovascular: Yes: Tachycardia Respiratory: Yes: Cough, Diminished, On BiPap, Rales, Rhonchi, SOB, Tachypnea. No: Accessory Muscle Use, Stridor, Wheezes ...Inspection: Yes: WNL ...Clubbing: No Gastrointestinal: Yes: Normal Bowel Sounds, Soft Renal/: Yes: WNL Musculoskeletal: Yes: WNL Extremities: Yes: WNL Edema: Yes Peripheral Pulses WNL: No Integumentary: Yes: Bruising, Erythema, Skin Tear, Venous Stasis Changes Neurological: Yes: Alert, Oriented ...Motor Strength: WNL Psychiatric: Yes: WNL, Alert, Oriented labs/meds/notes reviewed Imaging - Results Chest X-ray: Report Reviewed, Image Reviewed Problem List - Problems (1) COPD (chronic obstructive pulmonary disease) Code(s): J44.9 - CHRONIC OBSTRUCTIVE PULMONARY DISEASE, UNSPECIFIED Qualifiers: (2) ASHD (arteriosclerotic heart disease) Code(s): I25.10 - ATHSCL HEART DISEASE OF [place] CORONARY ARTERY W/O ANG PCTRS (3) Acute hypoxemic respiratory failure Code(s): J96.01 - ACUTE RESPIRATORY FAILURE WITH HYPOXIA (4) Anemia Code(s): D64.9 - ANEMIA, UNSPECIFIED Qualifiers: Anemia type: due to chronic kidney disease Chronic kidney disease stage: unspecified stage Qualified Code(s): N18.9 - Chronic kidney disease, unspecified (5) Aortic stenosis Code(s): I35.0 - NONRHEUMATIC AORTIC (VALVE) STENOSIS Qualifiers: Cardiac valve disease etiology: nonrheumatic Qualified Code(s): I35.0 - Nonrheumatic aortic (valve) stenosis (6) CAD (coronary artery disease) Code(s): I25.10 - ATHSCL HEART DISEASE OF [place] CORONARY ARTERY W/O ANG PCTRS Qualifiers: Coronary Disease-Associated Artery/Lesion type: [place] artery [place] vs. transplanted heart: [place] heart Associated angina: without angina Qualified Code(s): I25.10 - Atherosclerotic heart disease of [place] coronary artery without angina pectoris (7) CHF (congestive heart failure) Code(s): I50.9 - HEART FAILURE, UNSPECIFIED Qualifiers: Heart failure type: systolic Heart failure chronicity: acute on chronic Qualified Code(s): I50.23 - Acute on chronic systolic (congestive) heart failure (8) CKD (chronic kidney disease) Code(s): N18.9 - CHRONIC KIDNEY DISEASE, UNSPECIFIED (9) Chronic hypoxemic respiratory failure Code(s): J96.11 - CHRONIC RESPIRATORY FAILURE WITH HYPOXIA (10) Cough Code(s): R05 - COUGH (11) Edema extremities Code(s): R60.0 - LOCALIZED EDEMA (12) HTN (hypertension) Code(s): I10 - ESSENTIAL (PRIMARY) HYPERTENSION Qualifiers: Hypertension type: essential hypertension Qualified Code(s): I10 - Essential (primary) hypertension (13) Hypothyroid Code(s): E03.9 - HYPOTHYROIDISM, UNSPECIFIED Qualifiers: Hypothyroidism type: unspecified Qualified Code(s): E03.9 - Hypothyroidism , unspecified (14) Lung cancer Code(s): C34.90 - MALIGNANT NEOPLASM OF UNSP PART OF UNSP BRONCHUS OR LUNG Qualifiers: Lung location: unspecified part of lung (15) Neuropathy Code(s): G62.9 - POLYNEUROPATHY, UNSPECIFIED (16) Pneumonia Code(s): J18.9 - PNEUMONIA, UNSPECIFIED ORGANISM Qualifiers: Pneumonia type: due to unspecified organism (17) Tachycardia Code(s): R00.0 - TACHYCARDIA, UNSPECIFIED Assessment/Plan Trial of VM O2 with NIPPV as backup Daily weight ABX per ID Medrol dose reduced BD TX QID Follow cultures VTE prophylaxis No smoking discussed Cardiac Telemetry monitoring Francois ROBERTS MD
[2017-10-14] MEDS: FUROSEMIDE 40 MG/4 ML INJECTABLE VIAL IVPUSH SCH (12:56)
[2017-10-14] MEDS: oxyCODONE HCL 5 MG TABLET PO PRN ×2 (14:28→21:15)
[2017-10-14] MEDS: ACETAMINOPHEN 325 MG TABLET (FP) PO PRN ×2 (14:31→21:15)
[2017-10-14] MEDS: MIRTAZAPINE 15 MG TABLET (FP) PO SCH (21:14)
[2017-10-15] MEDS ORDERED: PIPERACILLIN/TAZOBACTAM 3.375 GM VIAL IVPB ONE ×3 (00:47→17:10)
[2017-10-15] MEDS ORDERED: DEXTROSE 5%-WATER - 50 ML IVPB ONE ×3 (00:47→17:10)
[2017-10-15] MEDS: PIPERACILLIN/TAZOB 3.375 GM 3.375 GM in DEXTROSE 5%-WATER - 50 ML IVPB SCH ×3 (01:15→17:20)
[2017-10-15] MEDS: methylPREDNISolone NA SUCC 40 MG/1 ML VIAL IVPUSH SCH ×2 (01:15→09:03)
[2017-10-15] MEDS: oxyCODONE HCL 5 MG TABLET PO PRN ×3 (05:10→21:16)
[2017-10-15] MEDS: ACETAMINOPHEN 325 MG TABLET (FP) PO PRN ×3 (05:15→21:16)
[2017-10-15] MEDS: HEPARIN NA (PORCINE) 5,000 UNITS/ML 1ML VIAL SQ SCH ×3 (05:15→21:16)
[2017-10-15] MEDS: LEVOTHYROXINE NA 88 MCG TABLET (FP) PO SCH (06:17)
[2017-10-15] MEDS: ALBUTEROL SO4 2.5/IPRATROPIUM 0.5 INH SOL 3 ML VIAL.NEB. NEB SCH ×4 (07:48→20:50)
[2017-10-15 08:20] LABS: HEMATOCRIT 35.3 % (32.4-45.2); HEMOGLOBIN 11.5 GM/dL (10.7-15.3); LYMPH % 3.4 % (8-40); MCHC 32.6 g/dl (32.0-36.0); MEAN CELL VOLUME 92.1 fl (80-96); MEAN PLT VOLUME 8.1 fl (7.5-11.1); MONO % 1.1 % (3.8-10.2); NEUT % 95.5 % (42.8-82.8); PLATELET COUNT 256 K/MM3 (134-434); RBC 3.83 M/mm3 (3.60-5.2); RDW 16.6 % (11.6-15.6); WHITE BLOOD COUNT 11.7 K/mm3 (4.0-10.0)
[2017-10-15] MEDS ORDERED: PT OWN MED DRAWER 7, Y5N ONE ×2 (08:33→19:32)
[2017-10-15 08:54] LABS: ALBUMIN 2.4 g/dl (3.4-5.0); ALK PHOS 47 U/L (45-117); ANION GAP 9 (8-16); BILIRUBIN,TOTAL 0.3 mg/dL (0.2-1.0); BLOOD UREA NITROGEN 78 mg/dL (7-18); CALCIUM 8.4 mg/dL (8.5-10.1); CHLORIDE 99 mmol/L (98-107); CO2 36 mmol/L (21-32); CREATININE 3.3 mg/dL (0.55-1.02); GLUCOSE,RANDOM 138 mg/dL (74-106); POTASSIUM 4.2 mmol/L (3.5-5.1); SGOT/AST 17 U/L (15-37); SGPT/ALT 27 U/L (12-78); SODIUM 144 mmol/L (136-145); TOT PROT 6.2 g/dl (6.4-8.2)
[2017-10-15] MEDS: MAGNESIUM OXIDE 400 MG TABLET (FP) PO SCH ×2 (09:02→21:16)
[2017-10-15] MEDS: CITALOPRAM HYDROBROMIDE 20 MG TABLET (FP) PO SCH (09:02)
[2017-10-15] MEDS: diazePAM 2 MG TABLET PO SCH (09:02)
[2017-10-15] MEDS: MULTIVITAMINS (DAILY MVI) TABLET (FP) PO SCH (09:02)
[2017-10-15] MEDS: CARVEDILOL 12.5 MG TABLET (FP) PO SCH ×2 (09:03→21:16)
[2017-10-15] MEDS: FUROSEMIDE 40 MG/4 ML INJECTABLE VIAL IVPUSH SCH (09:03)
[2017-10-15] MEDS: BUDESONIDE/FORMETEROL FUMARATE 160/4.5 mcg INHALER IH SCH ×2 (09:03→21:15)
[2017-10-15] MEDS: AZITHROMYCIN IVPB 500 MG in DEXTROSE 5%-WATER - 250 ML IVPB SCH (09:16)
--- NOTE | 2017-10-15 11:22 | PN ---
Progress Note, Physician - Current Medication List Current Medications: Active Medications Acetaminophen (Tylenol -) 325 mg PO Q4H PRN PRN Reason: PAIN LEVEL 6-10 Stop: 10/16/17 06:27 Last Admin: 10/15/17 09:01 Dose: 325 mg Albuterol/Ipratropium (Duoneb -) 1 amp NEB RQID [facility] Last Admin: 10/15/17 07:48 Dose: 1 amp Budesonide/Formoterol Fumarate (Symbicort 160/4.5mcg -) 2 puff IH BID [facility] Last Admin: 10/15/17 09:03 Dose: 2 puff Carvedilol (Coreg -) 12.5 mg PO BID [facility] Last Admin: 10/15/17 09:03 Dose: 12.5 mg Citalopram Hydrobromide (Celexa -) 40 mg PO DAILY [facility] Last Admin: 10/15/17 09:02 Dose: 40 mg Diazepam (Valium -) 2 mg PO DAILY [facility] Last Admin: 10/15/17 09:02 Dose: 2 mg Furosemide (Lasix Injection -) 40 mg IVPUSH DAILY [facility] Last Admin: 10/15/17 09:03 Dose: 40 mg Heparin Sodium (Porcine) (Heparin -) 5,000 unit SQ TID [facility] Last Admin: 10/15/17 05:15 Dose: 5,000 unit Azithromycin 500 mg/ Dextrose 250 mls @ 250 mls/hr IVPB DAILY [facility] Last Admin: 10/15/17 09:16 Dose: 250 mls/hr Piperacillin Sod/Tazobactam (Sod 3.375 gm/ Dextrose) 50 mls @ 100 mls/hr IVPB Q8H-IV [facility]; Protocol Last Admin: 10/15/17 09:03 Dose: 100 mls/hr Levothyroxine Sodium (Synthroid -) 88 mcg PO DAILY@0700 [facility] Last Admin: 10/15/17 06:17 Dose: 88 mcg Magnesium Oxide (Mag-Ox -) 400 mg PO BID [facility] Last Admin: 10/15/17 09:02 Dose: 400 mg Mirtazapine (Remeron -) 15 mg PO HS [facility] Last Admin: 10/14/17 21:14 Dose: 15 mg Multivitamins/Minerals/Vitamin C (Tab-A-Vit -) 1 tab PO DAILY [facility] Last Admin: 10/15/17 09:02 Dose: 1 tab Oxycodone HCl (Roxicodone -) 5 mg PO Q4H PRN PRN Reason: PAIN LEVEL 6-10 Last Admin: 10/15/17 09:01 Dose: 5 mg Prednisone (Deltasone -) 40 mg PO DAILY [facility] - Objective Vital Signs: Vital Signs Temperature 97.9 F 10/15/17 06:00 Pulse Rate 81 10/15/17 06:00 Respiratory Rate 18 10/15/17 06:00 Blood Pressure 142/83 10/15/17 06:00 O2 Sat by Pulse Oximetry (%) 98 10/14/17 22:00 Cardiovascular: Yes: S1, S2 Respiratory: Yes: Regular, CTA Bilaterally Gastrointestinal: Yes: Normal Bowel Sounds, Soft Labs: CBC, BMP 10/15/17 07:52 10/15/17 07:52 INR, PTT INR 0.93 (0.83-1.09) 10/13/17 03:12 Problem List - Problems (1) COPD (chronic obstructive pulmonary disease) Assessment/Plan: -Urine and blood c/s Microbiology 10/13/17 21:00 Legionella Antigen - Final Urine For Antigen Detection Streptococcus pneumoniae Antigen (M - Final 10/13/17 05:27 Urine Culture - Final Urine - Urine - Catheterized 10/13/17 05:00 Blood Culture - Preliminary Blood - Peripheral Venous NO GROWTH OBTAINED AFTER 24 HOURS, INCUBATION TO CONTINUE FOR 4 DAYS. 10/13/17 04:42 Blood Culture - Preliminary Blood - Peripheral Venous NO GROWTH OBTAINED AFTER 24 HOURS, INCUBATION TO CONTINUE FOR 4 DAYS. -Pt has recent history of pseudomonas on sputum c/s - Zosyn 3.375 mg IV Q8 and Azithromycin 500 mg IV Daily -ID consult ordered -Duonebs Q4 -Solumedrol 40 mg IV q 6hrs--To po -Pulmonology consult ordered -Hx SCC noted Code(s): J44.9 - CHRONIC OBSTRUCTIVE PULMONARY DISEASE, UNSPECIFIED Qualifiers: (2) Acute hypoxemic respiratory failure Assessment/Plan: -as above Code(s): J96.01 - ACUTE RESPIRATORY FAILURE WITH HYPOXIA (3) CHF (congestive heart failure) Assessment/Plan: -recent echo with EF 40% -Bibasilar crackles noted, could be part of her chronic lung disease -Lasix 40 iv daily -Cxr Code(s): I50.9 - HEART FAILURE, UNSPECIFIED Qualifiers: Heart failure type: systolic Heart failure chronicity: acute on chronic Qualified Code(s): I50.23 - Acute on chronic systolic (congestive) heart failure (4) Anemia Assessment/Plan: -Follow labs Code(s): D64.9 - ANEMIA, UNSPECIFIED Qualifiers: Anemia type: due to chronic kidney disease Chronic kidney disease stage: unspecified stage Qualified Code(s): N18.9 - Chronic kidney disease, unspecified (5) CKD (chronic kidney disease) Assessment/Plan: -Monitor Code(s): N18.9 - CHRONIC KIDNEY DISEASE, UNSPECIFIED
--- NOTE | 2017-10-15 11:32 | PN ---
Progress Note (short form) - Note Progress Note: PULMONARY Subjective improvement VSS Constitutional: Yes: Mild Distress, Thin Eyes: Yes: Conjunctiva Clear, EOM Intact HENT: Yes: Atraumatic, Normocephalic Neck: Yes: Supple, Trachea Midline Cardiovascular: Yes: Tachycardia Respiratory: Yes: Cough, Diminished, On BiPap, Rales, Rhonchi, SOB, Tachypnea. No: Accessory Muscle Use, Stridor, Wheezes ...Inspection: Yes: WNL ...Clubbing: No Gastrointestinal: Yes: Normal Bowel Sounds, Soft Renal/: Yes: WNL Musculoskeletal: Yes: WNL Extremities: Yes: WNL Edema: Yes Peripheral Pulses WNL: No Integumentary: Yes: Bruising, Erythema, Skin Tear, Venous Stasis Changes Neurological: Yes: Alert, Oriented ...Motor Strength: WNL Psychiatric: Yes: WNL, Alert, Oriented labs/meds/notes reviewed Imaging - Results Chest X-ray: Report Reviewed, Image Reviewed Problem List - Problems (1) COPD (chronic obstructive pulmonary disease) Code(s): J44.9 - CHRONIC OBSTRUCTIVE PULMONARY DISEASE, UNSPECIFIED Qualifiers: (2) ASHD (arteriosclerotic heart disease) Code(s): I25.10 - ATHSCL HEART DISEASE OF [place] CORONARY ARTERY W/O ANG PCTRS (3) Acute hypoxemic respiratory failure Code(s): J96.01 - ACUTE RESPIRATORY FAILURE WITH HYPOXIA (4) Anemia Code(s): D64.9 - ANEMIA, UNSPECIFIED Qualifiers: Anemia type: due to chronic kidney disease Chronic kidney disease stage: unspecified stage Qualified Code(s): N18.9 - Chronic kidney disease, unspecified (5) Aortic stenosis Code(s): I35.0 - NONRHEUMATIC AORTIC (VALVE) STENOSIS Qualifiers: Cardiac valve disease etiology: nonrheumatic Qualified Code(s): I35.0 - Nonrheumatic aortic (valve) stenosis (6) CAD (coronary artery disease) Code(s): I25.10 - ATHSCL HEART DISEASE OF [place] CORONARY ARTERY W/O ANG PCTRS Qualifiers: Coronary Disease-Associated Artery/Lesion type: [place] artery [place] vs. transplanted heart: [place] heart Associated angina: without angina Qualified Code(s): I25.10 - Atherosclerotic heart disease of [place] coronary artery without angina pectoris (7) CHF (congestive heart failure) Code(s): I50.9 - HEART FAILURE, UNSPECIFIED Qualifiers: Heart failure type: systolic Heart failure chronicity: acute on chronic Qualified Code(s): I50.23 - Acute on chronic systolic (congestive) heart failure (8) CKD (chronic kidney disease) Code(s): N18.9 - CHRONIC KIDNEY DISEASE, UNSPECIFIED (9) Chronic hypoxemic respiratory failure Code(s): J96.11 - CHRONIC RESPIRATORY FAILURE WITH HYPOXIA (10) Cough Code(s): R05 - COUGH (11) Edema extremities Code(s): R60.0 - LOCALIZED EDEMA (12) HTN (hypertension) Code(s): I10 - ESSENTIAL (PRIMARY) HYPERTENSION Qualifiers: Hypertension type: essential hypertension Qualified Code(s): I10 - Essential (primary) hypertension (13) Hypothyroid Code(s): E03.9 - HYPOTHYROIDISM, UNSPECIFIED Qualifiers: Hypothyroidism type: unspecified Qualified Code(s): E03.9 - Hypothyroidism , unspecified (14) Lung cancer Code(s): C34.90 - MALIGNANT NEOPLASM OF UNSP PART OF UNSP BRONCHUS OR LUNG Qualifiers: Lung location: unspecified part of lung (15) Neuropathy Code(s): G62.9 - POLYNEUROPATHY, UNSPECIFIED (16) Pneumonia Code(s): J18.9 - PNEUMONIA, UNSPECIFIED ORGANISM Qualifiers: Pneumonia type: due to unspecified organism (17) Tachycardia Code(s): R00.0 - TACHYCARDIA, UNSPECIFIED Assessment/Plan O2 has been titrated Daily weight ABX per ID Prednisone to to taper slowly BD TX QID oob to chair VTE prophylaxis Cardiac Telemetry monitoring Francois ROBERTS MD
[2017-10-15] MEDS: predniSONE 20 MG TABLET (UD) PO SCH (11:43)
[2017-10-15 15:02] LABS: PLATELET ESTIMATE ADEQUATE
[2017-10-15] MEDS: MIRTAZAPINE 15 MG TABLET (FP) PO SCH (21:16)
[2017-10-16] MEDS ORDERED: DEXTROSE 5%-WATER - 50 ML IVPB ONE ×4 (00:45→20:34)
[2017-10-16] MEDS ORDERED: PIPERACILLIN/TAZOBACTAM 3.375 GM VIAL IVPB ONE ×2 (00:45→09:47)
[2017-10-16] MEDS: PIPERACILLIN/TAZOB 3.375 GM 3.375 GM in DEXTROSE 5%-WATER - 50 ML IVPB SCH ×2 (01:02→10:01)
[2017-10-16] MEDS: oxyCODONE HCL 5 MG TABLET PO PRN ×4 (01:05→22:10)
[2017-10-16] MEDS: ACETAMINOPHEN 325 MG TABLET (FP) PO PRN ×2 (01:05→05:20)
[2017-10-16] MEDS: HEPARIN NA (PORCINE) 5,000 UNITS/ML 1ML VIAL SQ SCH ×3 (05:20→21:08)
[2017-10-16] MEDS: LEVOTHYROXINE NA 88 MCG TABLET (FP) PO SCH (06:05)
[2017-10-16] MEDS: ALBUTEROL SO4 2.5/IPRATROPIUM 0.5 INH SOL 3 ML VIAL.NEB. NEB SCH ×4 (07:33→19:14)
[2017-10-16 07:53] LABS: ANION GAP 8 (8-16); BLOOD UREA NITROGEN 74 mg/dL (7-18); CALCIUM 8.3 mg/dL (8.5-10.1); CHLORIDE 99 mmol/L (98-107); CO2 37 mmol/L (21-32); GLUCOSE,RANDOM 93 mg/dL (74-106); POTASSIUM 4.2 mmol/L (3.5-5.1); SODIUM 144 mmol/L (136-145)
[2017-10-16] MEDS ORDERED: PT OWN MED DRAWER 7, Y5N ONE (09:48)
[2017-10-16] MEDS: MULTIVITAMINS (DAILY MVI) TABLET (FP) PO SCH (09:59)
[2017-10-16] MEDS: CARVEDILOL 12.5 MG TABLET (FP) PO SCH ×2 (09:59→21:08)
[2017-10-16] MEDS: diazePAM 2 MG TABLET PO SCH (09:59)
[2017-10-16] MEDS: predniSONE 20 MG TABLET (UD) PO SCH (09:59)
[2017-10-16] MEDS: MAGNESIUM OXIDE 400 MG TABLET (FP) PO SCH ×2 (09:59→21:08)
[2017-10-16] MEDS: FUROSEMIDE 20 MG TABLET (FP) PO SCH (09:59)
[2017-10-16] MEDS: AZITHROMYCIN IVPB 500 MG in DEXTROSE 5%-WATER - 250 ML IVPB SCH (10:00)
[2017-10-16] MEDS: CITALOPRAM HYDROBROMIDE 20 MG TABLET (FP) PO SCH (10:00)
[2017-10-16] MEDS: BUDESONIDE/FORMETEROL FUMARATE 160/4.5 mcg INHALER IH SCH ×2 (10:01→22:00)
--- NOTE | 2017-10-16 10:02 | DS ---
Physical Examination Vital Signs: Vital Signs Temperature 98 F 10/16/17 09:58 Pulse Rate 86 10/16/17 09:58 Respiratory Rate 20 10/16/17 09:58 Blood Pressure 129/90 10/16/17 09:58 O2 Sat by Pulse Oximetry (%) 97 10/15/17 21:00 Cardiovascular: Yes: S1, S2 Respiratory: Yes: Regular, CTA Bilaterally Gastrointestinal: Yes: Normal Bowel Sounds, Soft Labs: CBC, BMP 10/15/17 07:52 10/16/17 05:30 Discharge Summary Reason For Visit: COPD Current Active Problems COPD (chronic obstructive pulmonary disease) (Acute) Hospital Course: - Problems (1) COPD (chronic obstructive pulmonary disease) Assessment/Plan: -Urine and blood c/s Microbiology 10/13/17 21:00 Legionella Antigen - Final Urine For Antigen Detection Streptococcus pneumoniae Antigen (M - Final 10/13/17 05:27 Urine Culture - Final Urine - Urine - Catheterized 10/13/17 05:00 Blood Culture - Preliminary Blood - Peripheral Venous NO GROWTH OBTAINED AFTER 24 HOURS, INCUBATION TO CONTINUE FOR 4 DAYS. 10/13/17 04:42 Blood Culture - Preliminary Blood - Peripheral Venous NO GROWTH OBTAINED AFTER 24 HOURS, INCUBATION TO CONTINUE FOR 4 DAYS. -Pt has recent history of pseudomonas on sputum c/s - Zosyn 3.375 mg IV Q8 and Azithromycin 500 mg IV Daily -ID consult ordered -Duonebs Q4 -Solumedrol 40 mg IV q 6hrs--To po -Pulmonology consult ordered -Hx SCC noted Code(s): J44.9 - CHRONIC OBSTRUCTIVE PULMONARY DISEASE, UNSPECIFIED Qualifiers: (2) Acute hypoxemic respiratory failure Assessment/Plan: -as above Code(s): J96.01 - ACUTE RESPIRATORY FAILURE WITH HYPOXIA (3) CHF (congestive heart failure) Assessment/Plan: -recent echo with EF 40% -Bibasilar crackles noted, could be part of her chronic lung disease -Lasix 40 iv daily -Cxr Code(s): I50.9 - HEART FAILURE, UNSPECIFIED Qualifiers: Heart failure type: systolic Heart failure chronicity: acute on chronic Qualified Code(s): I50.23 - Acute on chronic systolic (congestive) heart failure (4) Anemia Assessment/Plan: -Follow labs Code(s): D64.9 - ANEMIA, UNSPECIFIED Qualifiers: Anemia type: due to chronic kidney disease Chronic kidney disease stage: unspecified stage Qualified Code(s): N18.9 - Chronic kidney disease, unspecified (5) CKD (chronic kidney disease) Assessment/Plan: -Monitor Code(s): N18.9 - CHRONIC KIDNEY DISEASE, UNSPECIFIED Condition: Improved - Instructions Referrals: Isaiah Thompson MD [Primary Care Provider] - Disposition: [facility]/HOME HEALTH CARE - Home Medications Comprehensive Discharge Medication List: Ambulatory Orders Carvedilol [Coreg -] 12.5 mg PO BID 12/18/16 Hydrocodone/Acetaminophen [Hydrocodone-Acetamin 10-325 mg] 1 each PO Q4H PRN Levothyroxine [Synthroid -] 88 mcg PO DAILY 12/18/16 Multivitamin [Daily Multiple Vitamin] 1 each PO DAILY 06/22/17 Mirtazapine [Remeron -] 15 mg PO HS #30 tablet 06/27/17 Budesonide [Pulmicort 0.25 mg Nebulizer -] 0.25 mg IH BID 10/13/17 Citalopram Hydrobromide [Citalopram HBr] 40 mg PO DAILY 10/13/17 Diazepam [Valium] 2 mg PO DAILY 10/13/17 Furosemide [Lasix] 40 mg PO DAILY 10/13/17 Magnesium Oxide [Mag-Ox -] 400 mg PO BID 10/13/17 Mirtazapine 15 mg PO HS 10/13/17 Prednisone 20 mg PO BID 10/13/17 Albuterol 2.5/Ipratropium 0.5 [Duoneb -] 1 amp NEB RQID amp 10/16/17
--- NOTE | 2017-10-16 13:29 | PN ---
Progress Note (short form) - Note Progress Note: feels much better today less sob no hemoptysis no fevers Vital Signs Period Temp Pulse Resp BP Sys/Kennedy Pulse Ox Last 24 Hr 97.7 F-98.5 F 76-86 18-20 129-145/71-90 97 cor-rrr lungs decreased bs at bses abd soft nt ext no edema CBC, BMP 10/15/17 07:52 10/16/17 05:30 Microbiology 10/13/17 05:00 Blood - Peripheral Venous Blood Culture - Preliminary NO GROWTH OBTAINED AFTER 72 HOURS, INCUBATION TO CONTINUE FOR 2 DAYS. 10/13/17 04:42 Blood - Peripheral Venous Blood Culture - Preliminary NO GROWTH OBTAINED AFTER 72 HOURS, INCUBATION TO CONTINUE FOR 2 DAYS. 10/13/17 21:00 Urine For Antigen Detection Legionella Antigen - Final 10/13/17 21:00 Urine For Antigen Detection Streptococcus pneumoniae Antigen (M - Final 10/13/17 05:27 Urine - Urine - Catheterized Urine Culture - Final cxray improved a/p day #3 zosyn/zithromax can d/c zithromax legionella antigen negative continue zosyn decrease dose due to elevated creatinine eren/ckd- follow up renal function copd
--- NOTE | 2017-10-16 14:44 | PN ---
Progress Note, Physician History of Present Illness: PULMONARY ALERT,FEELING BETTER,LESS DYSPNEIC,+ COUGH - Current Medication List Current Medications: Active Medications Albuterol/Ipratropium (Duoneb -) 1 amp NEB RQID [facility] Last Admin: 10/16/17 11:05 Dose: Not Given Budesonide/Formoterol Fumarate (Symbicort 160/4.5mcg -) 2 puff IH BID [facility] Last Admin: 10/16/17 10:01 Dose: 2 puff Carvedilol (Coreg -) 12.5 mg PO BID [facility] Last Admin: 10/16/17 09:59 Dose: 12.5 mg Citalopram Hydrobromide (Celexa -) 40 mg PO DAILY [facility] Last Admin: 10/16/17 10:00 Dose: 40 mg Diazepam (Valium -) 2 mg PO DAILY [facility] Last Admin: 10/16/17 09:59 Dose: 2 mg Furosemide (Lasix -) 20 mg PO DAILY [facility] Last Admin: 10/16/17 09:59 Dose: 20 mg Heparin Sodium (Porcine) (Heparin -) 5,000 unit SQ TID [facility] Last Admin: 10/16/17 05:20 Dose: 5,000 unit Piperacillin Sod/Tazobactam (Sod 2.25 gm/ Dextrose) 50 mls @ 100 mls/hr IVPB Q8H-IV [facility]; Protocol Levothyroxine Sodium (Synthroid -) 88 mcg PO DAILY@0700 [facility] Last Admin: 10/16/17 06:05 Dose: 88 mcg Magnesium Oxide (Mag-Ox -) 400 mg PO BID [facility] Last Admin: 10/16/17 09:59 Dose: 400 mg Mirtazapine (Remeron -) 15 mg PO HS [facility] Last Admin: 10/15/17 21:16 Dose: 15 mg Multivitamins/Minerals/Vitamin C (Tab-A-Vit -) 1 tab PO DAILY [facility] Last Admin: 10/16/17 09:59 Dose: 1 tab Oxycodone HCl (Roxicodone -) 5 mg PO Q4H PRN PRN Reason: PAIN LEVEL 6-10 Last Admin: 10/16/17 05:20 Dose: 5 mg Prednisone (Deltasone -) 40 mg PO DAILY [facility] Last Admin: 10/16/17 09:59 Dose: 40 mg - Objective Vital Signs: Vital Signs Temperature 98 F 10/16/17 09:58 Pulse Rate 86 10/16/17 09:58 Respiratory Rate 20 10/16/17 09:58 Blood Pressure 129/90 10/16/17 09:58 O2 Sat by Pulse Oximetry (%) 97 10/15/17 21:00 Constitutional: Yes: Well Nourished, Calm Eyes: Yes: WNL HENT: Yes: WNL Neck: Yes: WNL Cardiovascular: Yes: Regular Rate and Rhythm, S1, S2 Respiratory: Yes: Rales (BIBASIALR CRACKLES) Gastrointestinal: Yes: Normal Bowel Sounds, Soft Extremities: Yes: WNL Edema: No Labs: CBC, BMP 10/15/17 07:52 10/16/17 05:30 INR, PTT INR 0.93 (0.83-1.09) 10/13/17 03:12 Assessment/Plan Problem List - Problems (1) COPD (chronic obstructive pulmonary disease) Code(s): J44.9 - CHRONIC OBSTRUCTIVE PULMONARY DISEASE, UNSPECIFIED Qualifiers: (2) ASHD (arteriosclerotic heart disease) Code(s): I25.10 - ATHSCL HEART DISEASE OF [place] CORONARY ARTERY W/O ANG PCTRS (3) Acute hypoxemic respiratory failure Code(s): J96.01 - ACUTE RESPIRATORY FAILURE WITH HYPOXIA (4) Anemia Code(s): D64.9 - ANEMIA, UNSPECIFIED Qualifiers: Anemia type: due to chronic kidney disease Chronic kidney disease stage: unspecified stage Qualified Code(s): N18.9 - Chronic kidney disease, unspecified (5) Aortic stenosis Code(s): I35.0 - NONRHEUMATIC AORTIC (VALVE) STENOSIS Qualifiers: Cardiac valve disease etiology: nonrheumatic Qualified Code(s): I35.0 - Nonrheumatic aortic (valve) stenosis (6) CAD (coronary artery disease) Code(s): I25.10 - ATHSCL HEART DISEASE OF [place] CORONARY ARTERY W/O ANG PCTRS Qualifiers: Coronary Disease-Associated Artery/Lesion type: [place] artery [place] vs. transplanted heart: [place] heart Associated angina: without angina Qualified Code(s): I25.10 - Atherosclerotic heart disease of [place] coronary artery without angina pectoris (7) CHF (congestive heart failure) Code(s): I50.9 - HEART FAILURE, UNSPECIFIED Qualifiers: Heart failure type: systolic Heart failure chronicity: acute on chronic Qualified Code(s): I50.23 - Acute on chronic systolic (congestive) heart failure (8) CKD (chronic kidney disease) Code(s): N18.9 - CHRONIC KIDNEY DISEASE, UNSPECIFIED (9) Chronic hypoxemic respiratory failure Code(s): J96.11 - CHRONIC RESPIRATORY FAILURE WITH HYPOXIA (10) Cough Code(s): R05 - COUGH (11) Edema extremities Code(s): R60.0 - LOCALIZED EDEMA (12) HTN (hypertension) Code(s): I10 - ESSENTIAL (PRIMARY) HYPERTENSION Qualifiers: Hypertension type: essential hypertension Qualified Code(s): I10 - Essential (primary) hypertension (13) Hypothyroid Code(s): E03.9 - HYPOTHYROIDISM, UNSPECIFIED Qualifiers: Hypothyroidism type: unspecified Qualified Code(s): E03.9 - Hypothyroidism , unspecified (14) Lung cancer Code(s): C34.90 - MALIGNANT NEOPLASM OF UNSP PART OF UNSP BRONCHUS OR LUNG Qualifiers: Lung location: unspecified part of lung (15) Neuropathy Code(s): G62.9 - POLYNEUROPATHY, UNSPECIFIED (16) Pneumonia Code(s): J18.9 - PNEUMONIA, UNSPECIFIED ORGANISM Qualifiers: Pneumonia type: due to unspecified organism (17) Tachycardia Code(s): R00.0 - TACHYCARDIA, UNSPECIFIED Assessment/Plan O2 Daily weight ABX per ID Prednisone BD TX QID VTE prophylaxis No smoking discussed DR ALVAREZ
[2017-10-16] MEDS ORDERED: PIPERACILLIN/TAZOBACTAM 2.25 GM VIAL IVPB ONE ×2 (16:30→20:34)
[2017-10-16] MEDS ORDERED: ACETAMINOPHEN 325 MG TABLET (FP) ONE (16:41)
[2017-10-16] MEDS: PIPERACILLIN/TAZOB 2.25 GM 2.25 GM in DEXTROSE 5%-WATER - 50 ML IVPB SCH (17:35)
--- NOTE | 2017-10-16 19:00 | CONS ---
DATE OF CONSULTATION: 10/13/2017 CONSULTATION REQUESTED BY: Isaiah Thompson MD This is a 77-year-old woman with COPD admitted with resting respiratory symptoms, shortness of breath, and cough, but no fever. She had brown sputum production. No hemoptysis at home. Her breathing progressed to such a point that when she came to the emergency room she required BiPAP support. She received Lasix as well, with some improvement. By the time I saw her, she was still feeling tachypneic but mildly improved. PAST MEDICAL HISTORY: Notable for history of COPD, aortic stenosis, coronary artery disease, hypertension, hyperlipidemia, pulmonary hypertension, small cell cancer status post chemo; COPD, oxygen dependent; CKD, chronic low back pain, and hypothyroidism. She is status post stenting and PCI in the past. PAST SURGICAL HISTORY: Notable for lung biopsy for lung cancer, cervical and lumbar laminectomies. HABITS: She is a former smoker. She quit in 2014. SOCIAL HISTORY: She lives at home with her . She has been hospitalized. Her last hospitalization was in May, after which she went to [facility]. REVIEW OF SYSTEMS: She denies dysuria. She denies fevers or chills. She denies nausea, vomiting. She has no appetite. PHYSICAL EXAMINATION: General: She was awake and alert. Vital Signs: Temperature 99, blood pressure 129/90, respiratory rate of 20. She was saturating 97% on 3 L. HEENT: Normocephalic. Her eyes are anicteric. She has no thrush. Neck: Supple. Lungs: Diminished breath sounds at the bases. Heart: Regular rate and rhythm. Abdomen: Soft, nontender. Extremities: Without edema. LABORATORY: White count on admission was 18.2, repeated later in the day was 13.3. Hemoglobin 11.8, platelets of 261. Blood gas on admission showed a PCO2 of 50, PO2 of 61 on BiPAP, and later in the morning improved to a PO2 of . Chemistries are notable for BUN and creatinine of 57 and 2.3, with normal LFTs and troponin of 0.10. Urinalysis was negative. Cultures were sent. Chest x-ray shows increased interstitial markings with a question of small infiltrate superior to the right fissure. SUMMARY: This is a 77-year-old woman with a past history of COPD, pneumonia, prior history of pseudomonas, now with possible pneumonia and respiratory distress, possible CHF. I would agree with the Zosyn and Zithromax order, would check cultures, a Legionella urinary antigen, and pulmonary and cardiology evaluations to follow. Further recommendations based on her clinical course. FAITH MEDEROS M.D. [id number]
[2017-10-16] MEDS: MIRTAZAPINE 15 MG TABLET (FP) PO SCH (21:09)
[2017-10-17] MEDS: PIPERACILLIN/TAZOB 2.25 GM 2.25 GM in DEXTROSE 5%-WATER - 50 ML IVPB SCH ×2 (03:00→09:40)
[2017-10-17] MEDS ORDERED: ACETAMINOPHEN 325 MG TABLET (FP) ONE (04:55)
[2017-10-17] MEDS: oxyCODONE HCL 5 MG TABLET PO PRN ×2 (04:56→12:39)
[2017-10-17] MEDS: HEPARIN NA (PORCINE) 5,000 UNITS/ML 1ML VIAL SQ SCH ×2 (07:00→14:11)
[2017-10-17] MEDS: LEVOTHYROXINE NA 88 MCG TABLET (FP) PO SCH (07:00)
[2017-10-17] MEDS: ALBUTEROL SO4 2.5/IPRATROPIUM 0.5 INH SOL 3 ML VIAL.NEB. NEB SCH ×2 (08:01→11:09)
[2017-10-17] MEDS ORDERED: PT OWN MED DRAWER 7, Y5N ONE (08:31)
[2017-10-17] MEDS ORDERED: PIPERACILLIN/TAZOBACTAM 2.25 GM VIAL IVPB ONE (09:29)
[2017-10-17] MEDS ORDERED: DEXTROSE 5%-WATER - 50 ML IVPB ONE (09:29)
--- NOTE | 2017-10-17 09:36 | DS ---
Physical Examination Vital Signs: Vital Signs Temperature 97.5 F L 10/17/17 01:56 Pulse Rate 71 10/17/17 01:56 Respiratory Rate 18 10/17/17 01:56 Blood Pressure 137/75 10/17/17 01:56 O2 Sat by Pulse Oximetry (%) 97 10/16/17 21:00 Labs: CBC, BMP 10/15/17 07:52 10/16/17 05:30 Discharge Summary Reason For Visit: COPD Current Active Problems COPD (chronic obstructive pulmonary disease) (Acute) Hospital Course: 77 yo female with PMH COPD, aortic stenosis, CAD s/p stent and PCI, HTN, HLD, mitral insufficiency, pulmonary HTN, small cell carcinoma s/p chemo, lung CA O2 dependent, renal failure, chronic lower back pain, and hypothyroidism, presented to ED for worsening SOB that began at 10pm last night. She stated at that time she felt "impending doom" as per ED staff. She was placed on bilevel ventilation and was much improved by the time I saw her. She says she had a productive cough with clear sputum earlier but that has improved. She currently states her SOB has improved, she denies chest pain, fever, chills. ER course was notable for: (1) WBC 18.2, Trop 0.1, BNP 09496 (2) SOB improved on Bilevel ventilation (3) ceftriaxone azithromycin given - Problems (1) COPD (chronic obstructive pulmonary disease) Assessment/Plan: -Urine and blood c/s Microbiology 10/13/17 21:00 Legionella Antigen - Final Urine For Antigen Detection Streptococcus pneumoniae Antigen (M - Final 10/13/17 05:27 Urine Culture - Final Urine - Urine - Catheterized 10/13/17 05:00 Blood Culture - Preliminary Blood - Peripheral Venous NO GROWTH OBTAINED AFTER 24 HOURS, INCUBATION TO CONTINUE FOR 4 DAYS. 10/13/17 04:42 Blood Culture - Preliminary Blood - Peripheral Venous NO GROWTH OBTAINED AFTER 24 HOURS, INCUBATION TO CONTINUE FOR 4 DAYS. -Pt has recent history of pseudomonas on sputum c/s - Zosyn 3.375 mg IV Q8 and Azithromycin 500 mg IV Daily--to po ceftin -ID consult ordered -Duonebs Q4 -Solumedrol 40 mg IV q 6hrs--To po -Pulmonology consult ordered -Hx SCC noted Code(s): J44.9 - CHRONIC OBSTRUCTIVE PULMONARY DISEASE, UNSPECIFIED Qualifiers: (2) Acute hypoxemic respiratory failure Assessment/Plan: -as above Code(s): J96.01 - ACUTE RESPIRATORY FAILURE WITH HYPOXIA (3) CHF (congestive heart failure) Assessment/Plan: -recent echo with EF 40% -Bibasilar crackles noted, could be part of her chronic lung disease -Lasix 40 iv daily -Cxr Code(s): I50.9 - HEART FAILURE, UNSPECIFIED Qualifiers: Heart failure type: systolic Heart failure chronicity: acute on chronic Qualified Code(s): I50.23 - Acute on chronic systolic (congestive) heart failure (4) Anemia Assessment/Plan: -Follow labs Code(s): D64.9 - ANEMIA, UNSPECIFIED Qualifiers: Anemia type: due to chronic kidney disease Chronic kidney disease stage: unspecified stage Qualified Code(s): N18.9 - Chronic kidney disease, unspecified (5) CKD (chronic kidney disease) Assessment/Plan: -Monitor Code(s): N18.9 - CHRONIC KIDNEY DISEASE, UNSPECIFIED Condition: Improved - Instructions Referrals: Isaiah Thompson MD [Primary Care Provider] - 1 Week Disposition: VNS/HOME HEALTH CARE - Home Medications Comprehensive Discharge Medication List: Ambulatory Orders Carvedilol [Coreg -] 12.5 mg PO BID 12/18/16 Hydrocodone/Acetaminophen [Hydrocodone-Acetamin 10-325 mg] 1 each PO Q4H PRN Levothyroxine [Synthroid -] 88 mcg PO DAILY 12/18/16 Multivitamin [Daily Multiple Vitamin] 1 each PO DAILY 06/22/17 Mirtazapine [Remeron -] 15 mg PO HS #30 tablet 06/27/17 Budesonide [Pulmicort 0.25 mg Nebulizer -] 0.25 mg IH BID 10/13/17 Citalopram Hydrobromide [Citalopram HBr] 40 mg PO DAILY 10/13/17 Diazepam [Valium] 2 mg PO DAILY 10/13/17 Furosemide [Lasix] 40 mg PO DAILY 10/13/17 Magnesium Oxide [Mag-Ox -] 400 mg PO BID 10/13/17 Mirtazapine 15 mg PO HS 10/13/17 Prednisone 20 mg PO BID 10/13/17 Albuterol 2.5/Ipratropium 0.5 [Duoneb -] 1 amp NEB RQID amp 10/16/17 Cefuroxime Axetil [Cefuroxime] 250 mg PO BID #10 tablet 10/17/17
[2017-10-17] MEDS: predniSONE 20 MG TABLET (UD) PO SCH (09:39)
[2017-10-17] MEDS: CARVEDILOL 12.5 MG TABLET (FP) PO SCH (09:39)
[2017-10-17] MEDS: diazePAM 2 MG TABLET PO SCH (09:39)
[2017-10-17] MEDS: MULTIVITAMINS (DAILY MVI) TABLET (FP) PO SCH (09:39)
[2017-10-17] MEDS: CITALOPRAM HYDROBROMIDE 20 MG TABLET (FP) PO SCH (09:39)
[2017-10-17] MEDS: MAGNESIUM OXIDE 400 MG TABLET (FP) PO SCH (09:40)
[2017-10-17] MEDS: FUROSEMIDE 20 MG TABLET (FP) PO SCH (09:40)
[2017-10-17] MEDS: BUDESONIDE/FORMETEROL FUMARATE 160/4.5 mcg INHALER IH SCH (10:00)
--- NOTE | 2017-10-17 11:27 | PN ---
Progress Note, Physician History of Present Illness: pulmonary alert,feeling better,-resp distress - Current Medication List Current Medications: Active Medications Albuterol/Ipratropium (Duoneb -) 1 amp NEB RQID [facility] Last Admin: 10/17/17 11:09 Dose: 1 amp Budesonide/Formoterol Fumarate (Symbicort 160/4.5mcg -) 2 puff IH BID [facility] Last Admin: 10/16/17 22:00 Dose: 2 puff Carvedilol (Coreg -) 12.5 mg PO BID [facility] Last Admin: 10/17/17 09:39 Dose: 12.5 mg Citalopram Hydrobromide (Celexa -) 40 mg PO DAILY [facility] Last Admin: 10/17/17 09:39 Dose: 40 mg Diazepam (Valium -) 2 mg PO DAILY [facility] Last Admin: 10/17/17 09:39 Dose: 2 mg Furosemide (Lasix -) 20 mg PO DAILY [facility] Last Admin: 10/17/17 09:40 Dose: 20 mg Heparin Sodium (Porcine) (Heparin -) 5,000 unit SQ TID [facility] Last Admin: 10/17/17 07:00 Dose: 5,000 unit Piperacillin Sod/Tazobactam (Sod 2.25 gm/ Dextrose) 50 mls @ 100 mls/hr IVPB Q8H-IV [facility]; Protocol Last Admin: 10/17/17 09:40 Dose: 100 mls/hr Levothyroxine Sodium (Synthroid -) 88 mcg PO DAILY@0700 [facility] Last Admin: 10/17/17 07:00 Dose: 88 mcg Magnesium Oxide (Mag-Ox -) 400 mg PO BID [facility] Last Admin: 10/17/17 09:40 Dose: 400 mg Mirtazapine (Remeron -) 15 mg PO HS [facility] Last Admin: 10/16/17 21:09 Dose: 15 mg Multivitamins/Minerals/Vitamin C (Tab-A-Vit -) 1 tab PO DAILY [facility] Last Admin: 10/17/17 09:39 Dose: 1 tab Oxycodone HCl (Roxicodone -) 5 mg PO Q4H PRN PRN Reason: PAIN LEVEL 6-10 Last Admin: 10/17/17 04:56 Dose: 5 mg Prednisone (Deltasone -) 40 mg PO DAILY [facility] Last Admin: 10/17/17 09:39 Dose: 40 mg - Objective Vital Signs: Vital Signs Temperature 98 F 10/17/17 09:38 Pulse Rate 73 10/17/17 09:38 Respiratory Rate 20 10/17/17 09:38 Blood Pressure 122/70 10/17/17 09:38 O2 Sat by Pulse Oximetry (%) 97 10/16/17 21:00 Constitutional: Yes: Well Nourished, Calm Eyes: Yes: WNL HENT: Yes: WNL Neck: Yes: WNL Cardiovascular: Yes: Regular Rate and Rhythm, S1, S2 Respiratory: Yes: Diminished Gastrointestinal: Yes: Normal Bowel Sounds, Soft Extremities: Yes: WNL Edema: No Labs: CBC, BMP Assessment/Plan Problem List - Problems (1) COPD (chronic obstructive pulmonary disease) Code(s): J44.9 - CHRONIC OBSTRUCTIVE PULMONARY DISEASE, UNSPECIFIED Qualifiers: (2) ASHD (arteriosclerotic heart disease) Code(s): I25.10 - ATHSCL HEART DISEASE OF [place] CORONARY ARTERY W/O ANG PCTRS (3) Acute hypoxemic respiratory failure Code(s): J96.01 - ACUTE RESPIRATORY FAILURE WITH HYPOXIA (4) Anemia Code(s): D64.9 - ANEMIA, UNSPECIFIED Qualifiers: Anemia type: due to chronic kidney disease Chronic kidney disease stage: unspecified stage Qualified Code(s): N18.9 - Chronic kidney disease, unspecified (5) Aortic stenosis Code(s): I35.0 - NONRHEUMATIC AORTIC (VALVE) STENOSIS Qualifiers: Cardiac valve disease etiology: nonrheumatic Qualified Code(s): I35.0 - Nonrheumatic aortic (valve) stenosis (6) CAD (coronary artery disease) Code(s): I25.10 - ATHSCL HEART DISEASE OF [place] CORONARY ARTERY W/O ANG PCTRS Qualifiers: Coronary Disease-Associated Artery/Lesion type: [place] artery [place] vs. transplanted heart: [place] heart Associated angina: without angina Qualified Code(s): I25.10 - Atherosclerotic heart disease of [place] coronary artery without angina pectoris (7) CHF (congestive heart failure) Code(s): I50.9 - HEART FAILURE, UNSPECIFIED Qualifiers: Heart failure type: systolic Heart failure chronicity: acute on chronic Qualified Code(s): I50.23 - Acute on chronic systolic (congestive) heart failure (8) CKD (chronic kidney disease) Code(s): N18.9 - CHRONIC KIDNEY DISEASE, UNSPECIFIED (9) Chronic hypoxemic respiratory failure Code(s): J96.11 - CHRONIC RESPIRATORY FAILURE WITH HYPOXIA (10) Cough Code(s): R05 - COUGH (11) Edema extremities Code(s): R60.0 - LOCALIZED EDEMA (12) HTN (hypertension) Code(s): I10 - ESSENTIAL (PRIMARY) HYPERTENSION Qualifiers: Hypertension type: essential hypertension Qualified Code(s): I10 - Essential (primary) hypertension (13) Hypothyroid Code(s): E03.9 - HYPOTHYROIDISM, UNSPECIFIED Qualifiers: Hypothyroidism type: unspecified Qualified Code(s): E03.9 - Hypothyroidism , unspecified (14) Lung cancer Code(s): C34.90 - MALIGNANT NEOPLASM OF UNSP PART OF UNSP BRONCHUS OR LUNG Qualifiers: Lung location: unspecified part of lung (15) Neuropathy Code(s): G62.9 - POLYNEUROPATHY, UNSPECIFIED (16) Pneumonia Code(s): J18.9 - PNEUMONIA, UNSPECIFIED ORGANISM Qualifiers: Pneumonia type: due to unspecified organism (17) Tachycardia Code(s): R00.0 - TACHYCARDIA, UNSPECIFIED Assessment/Plan O2 Daily weight Prednisone BD TX QID VTE prophylaxis No smoking discussed DR ALVAREZ
[2017-10-17 15:09] VITALS: BP 135/77; PULSE 80; TEMP 98.3
--- NOTE | 2017-10-19 17:50 | CONS ---
INFECTIOUS DISEASE CONSULTATION DATE OF CONSULTATION: 10/13/2017 This is a 77-year-old woman with COPD on home oxygen. She was admitted on the with a 2-week history of worsening shortness of breath. She reports that breathing has worsened significantly at home. She was coughing up brownish sputum. There was no hemoptysis. She required BiPAP ventilation and felt much better. She was given a dose of Lasix as well in the emergency room. She reports having seen her PMD over the last couple of weeks, was prescribed more bronchodilators and inhalers, but she reports they did not help. She has a history of intermittent pedal edema which she reports has now improved. She has not had any fevers or chills. There is no history of any recent travel or sick contacts. She lives at home with her . ALLERGIES: She has no known drug allergies. MEDICATIONS AT HOME: Include Coreg, hydrocodone/acetaminophen, levothyroxine, multivitamins, Remeron, Pulmicort, Celexa, Valium, furosemide, magnesium oxide, mirtazapine, and prednisone which she says she has been on for the last month, 1-1/2 pills. She has a history of anemia. She has had right breast cancer and lung cancer, atherosclerotic heart disease status post stentings. She has COPD and is on home oxygen, 3 L. She has been to pulmonary rehab at before. She has a history of DVT in the past, UTI, renal insufficiency, hypercholesterolemia, hypothyroidism as well. SURGICAL HISTORY: Notable for lung biopsy and cervical and lumbar laminectomies. She has a history as well of pulmonary hypertension. She has a history of aortic stenosis as well. FAMILY HISTORY: Noncontributory. SOCIAL HISTORY: She is . She lives with her . There is no history of any recent travel. REVIEW OF SYSTEMS: Unremarkable. PHYSICAL EXAMINATION: Vital Signs: She has been afebrile. Temperature 97.9, pulse is 71, blood pressure 118/73. She is on nasal cannula and in no distress. General: She is a thin woman in no acute distress. HEENT: She is normocephalic. Her eyes are anicteric. Neck: Supple. Lungs: Crackles at the bases. Heart: Regular rate and rhythm. Abdomen: Soft, nontender. Extremities: Trace pedal edema. LABORATORY DATA: White count on admission was 18.2, repeat at 13.3; hemoglobin 11.8; platelets are 261. Her BUN is 57 and creatinine 2.3. Urinalysis is negative. She has cultures pending. She had a chest x-ray that shows diffuse interstitial and alveolar changes. There is a question of an acute right lung process at the right fissure. In summary, this is a 77-year-old woman with COPD on home oxygen, admitted with: 1. Worsening respiratory symptoms, shortness of breath and cough, brown sputum, no blood, prior history of pseudomonas. I would agree with Zosyn and Zithromax. Would check cultures including sputum as well as blood and legionella and pneumococcal urinary antigen. 2. History of COPD on home oxygen. 3. Chronic kidney disease; creatinine appears to be at baseline. Further recommendations to follow. Lorena [id number]
== END 2017-10-17 15:31 | disposition home health service (06) | DRG 291 ==
LOC: JER 03:07 → JERBED 05:09 → UNDOADMIN 05:42 → J4S 18:59
PROVIDERS: ADMIT Internal Medicine; ATTEND Family Medicine
DX: I13.0 Hypertensive heart and chronic kidney disease with heart failure and stage 1 through stage 4 chronic kidney disease, or unspecified chronic kidney disease (principal); J96.01 Acute respiratory failure with hypoxia; I50.23 Acute on chronic systolic (congestive) heart failure; J44.1 Chronic obstructive pulmonary disease with (acute) exacerbation; C34.90 Malignant neoplasm of unspecified part of unspecified bronchus or lung; J44.9 Chronic obstructive pulmonary disease, unspecified; N18.9 Chronic kidney disease, unspecified; I35.0 Nonrheumatic aortic (valve) stenosis; I25.10 Atherosclerotic heart disease of native coronary artery without angina pectoris; E03.9 Hypothyroidism, unspecified; G62.9 Polyneuropathy, unspecified; Z98.61 Coronary angioplasty status; E78.5 Hyperlipidemia, unspecified; D64.9 Anemia, unspecified
CPT/HCPCS: 36415; 36600; 71045-TC-FY; 80048; 80053; 81003; 82375; 82550; 82803; 83050; 83605; 83735; 83880; 84100; 84484; 85025; 85610; 85730; 87040; 87070; 87077; 87086; 87186; 87205; 87899; 93005; 93010; 94640; 97116-GP; 97161-GP; 99283-25; J1644; J7620

== ENCOUNTER 2018-01-16 04:48 | Inpatient (IN) | payer OTHER, MEDICARE ==
--- NOTE | 2018-01-16 05:07 | PDOC ---
History of Present Illness - General History Source: Patient Exam Limitations: No Limitations - History of Present Illness Initial Comments: 01/16/18 05:33 77 year old female with PMH COPD, CHF last EF 40%, CAD, stent x2 month ago, [place] 06/2017, HTN, HLD, mitral insufficiency, pulmonary HTN, small cell CA, lung CA, home O2 dependent (2-4L), CKD, hypothyroid, chronic low back pain, prior pseudamonas presented to ED for SOB, increased sputum production x3 days. Pt admitted to fever at home. Pt denied chest pain, palpitations, lower extremity swelling, nausea, vomiting, diarrhea, abdominal pain. 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) Cardiac Disorders: Yes (ASHD S/P STENT) CVA: No COPD: Yes (O2 3L NC PRN.) CHF: No DVT: Yes Dementia: No Diabetes: No GI Disorders: No Disorders: Yes (uti,renal insuff.) HTN: Yes Hypercholesterolemia: No Liver Disease: No Seizures: No Thyroid Disease: Yes (hypothyroidism, MULTIPLE NODULES) - Surgical History Abdominal Surgery: No Appendectomy: No Cardiac Surgery: Yes (STENT) Cholecystectomy: No Lung Surgery: Yes (LUNG BX, LUNG CA) Neurologic Surgery: No Orthopedic Surgery: Yes (CERVICAL, LUMBAR LAMINECTOMIES) - Immunization History Immunization Up to Date: Yes - Suicide/Smoking/Psychosocial Hx Smoking Status: Yes Smoking History: Never smoked Have you smoked in the past 12 months: No Number of Cigarettes Smoked Daily: 0 If you are a former smoker, when did you quit?: 2014 Cigars Per Day: 0 'Breaking Loose' booklet given: 09/29/14 Hx Alcohol Use: No Drug/Substance Use Hx: No Substance Use Type: None Hx Substance Use Treatment: No <Yuni Durant - Last Filed: 01/16/18 07:21> <Shasta Sebastian - Last Filed: 11/20/18 10:17> - Past Medical History Allergies/Adverse Reactions: Allergies Allergy/AdvReac Type Severity Reaction Status Date / Time No Known Allergies Allergy Verified 01/16/18 07:38 Home Medications: Ambulatory Orders Carvedilol [Coreg -] 12.5 mg PO BID 12/18/16 Levothyroxine [Synthroid -] 88 mcg PO DAILY 12/18/16 Multivitamin [Daily Multiple Vitamin] 1 each PO DAILY 06/22/17 Mirtazapine [Remeron -] 15 mg PO HS #30 tablet 06/27/17 Citalopram Hydrobromide [Citalopram HBr] 40 mg PO DAILY 10/13/17 Furosemide [Lasix] 80 mg PO DAILY 10/13/17 Magnesium Oxide [Mag-Ox -] 400 mg PO BID 10/13/17 Prednisone 10 mg PO BID 10/13/17 Alprazolam [Xanax] 0.125 mg PO DAILY PRN 01/16/18 Aspirin 81 mg PO DAILY 01/16/18 Atorvastatin Ca [Lipitor] 40 mg PO DAILY 01/16/18 Budesonide/Formeterol Fumarate [SYMBICORT 160/4.5mcg -] 1 inh PO BID 01/16/18 Oxycodone HCl/Acetaminophen [Percocet 5-325 mg Tablet] 1 - 2 tab PO Q6H PRN Sodium Polystyrene Sulfonate [Kayexalate] 30 gm PO DAILY PRN 01/16/18 Tiotropium [place] [Spiriva Respimat] 4 gm IH DAILY 01/16/18 Review of Systems - Review of Systems Able to Perform ROS?: Yes Constitutional: Yes: Fever, Malaise HEENTM: No: Ear Pain, Throat Pain Respiratory: Yes: Cough, Shortness of Breath Cardiac (ROS): No: Chest Pain, Palpitations, Syncope ABD/GI: No: Diarrhea, Nausea, Vomiting : No: Dysuria, Hematuria Musculoskeletal: Yes: Back Pain Neurological: No: Headache, Numbness, Tingling, Weakness, Dizziness <Yuni Durant - Last Filed: 01/16/18 07:21> *Physical Exam - Physical Exam Comments: 01/16/18 05:38 Constitutional: well developed, well nourished. HEENT: head is normocephalic, atraumatic. EOMI. PERRLA. dry oral mucosa. Neck: supple. full ROM. Heart: regular rhythm. no murmurs. Lungs: crackles bilaterally. no wheezing. decreased air entry bilaterally. Abdomen: soft, nontender. normal bowel sounds. no rebound, no guarding. Extremities: peripheral pulses intact and equal. no lower extremity edema. Neurological: CN2-12 grossly intact. Moves all four extremities. Psych: awake, alert, oriented to person. follows commands. answers questions appropriately. <Yuni Durant - Last Filed: 01/16/18 07:21> - Vital Signs Last Vital Signs Temp Pulse Resp BP Pulse Ox 98.2 F 87 20 126/104 H 98 01/16/18 08:00 01/16/18 06:50 01/16/18 06:50 01/16/18 06:50 01/16/18 06:57 <Shasta Sebastian - Last Filed: 01/16/18 10:17> ED Treatment Course - LABORATORY CBC & Chemistry Diagram: 01/16/18 05:21 01/16/18 06:00 <Yuni Durant - Last Filed: 01/16/18 07:21> - LABORATORY CBC & Chemistry Diagram: 01/16/18 05:21 01/16/18 06:00 - ADDITIONAL ORDERS Additional order review: Laboratory Results 01/16/18 01/16/18 01/16/18 06:00 06:00 06:00 PT with INR INR PTT (Actin FS) VBG pH POC VBG pCO2 POC VBG pO2 Mixed VBG HCO3 Sodium Potassium Chloride Carbon Dioxide Anion Gap BUN Creatinine Creat Clearance w eGFR Random Glucose Lactic Acid 1.0 Calcium Total Bilirubin AST ALT Alkaline Phosphatase CK-MB (CK-2) Troponin I 0.30 H Cancelled B-Natriuretic Peptide 24393.20 H Total Protein Albumin TSH 2.42 01/16/18 01/16/18 01/16/18 06:00 06:00 06:00 PT with INR 11.20 INR 0.95 PTT (Actin FS) 24.7 L VBG pH 7.38 POC VBG pCO2 73.4 H* D POC VBG pO2 29.9 Mixed VBG HCO3 42.0 H* Sodium Cancelled Potassium Cancelled Chloride Cancelled Carbon Dioxide Cancelled Anion Gap Cancelled BUN Cancelled Creatinine Cancelled Creat Clearance w eGFR Cancelled Random Glucose Cancelled Lactic Acid Calcium Cancelled Total Bilirubin Cancelled AST Cancelled ALT Cancelled Alkaline Phosphatase Cancelled CK-MB (CK-2) Cancelled Troponin I Cancelled B-Natriuretic Peptide Total Protein Cancelled Albumin Cancelled TSH 01/16/18 05:21 RBC 3.52 L MCV 96.8 H MCHC 30.7 L RDW 17.6 H MPV 7.9 Neutrophils % 92.7 H Lymphocytes % 4.5 L D Monocytes % 2.0 L D Eosinophils % 0.4 D Basophils % 0.4 D - Medications Given in the ED: ED Medications Discontinued Medications Generic Name Dose Route Start Last Admin Trade Name Freq PRN Reason Stop Dose Admin Albuterol/Ipratropium 3 amp 01/16/18 05:22 01/16/18 06:34 Duoneb - NEB 01/16/18 05:23 3 amp ONCE ONE Administration Levofloxacin 750 mg in 150 mls @ 100 mls/hr 01/16/18 05:32 01/16/18 07:12 Levaquin 750 Mg Premixed Ivpb - IVPB 01/16/18 07:01 100 mls/hr ONCE ONE Administration Protocol Magnesium Sulfate/Dextrose 2 200 mls @ 100 mls/hr 01/16/18 05:26 01/16/18 07: 12 gm/ Miscellaneous IVPB 01/16/18 07:25 100 mls/hr ONCE ONE Administration Methylprednisolone Sodium Succinate 125 mg 01/16/18 05:24 01/16/18 06:34 Solu-Medrol - IVPUSH 01/16/18 05:25 125 mg ONCE ONE Administration <Shasta Sebastian - Last Filed: 01/16/18 10:17> Medical Decision Making - Medical Decision Making 01/16/18 05:39 77 year old female with extensive cardiopulmonary PMH presented to ED for SOB, increased sputum production, fever. Initial Vital Signs Temp Pulse Resp BP Pulse Ox 98.7 F 75 22 H 125/73 84 L 01/16/18 04:50 01/16/18 04:50 01/16/18 04:50 01/16/18 04:50 01/16/18 04:50 Afebrile. No tachycardia. Tachypneic. No hypotension. Hypoxia on room air. Currently satting 100% on nonrebreather. Last EF 35-40% on 06/23. Pending CXR, CBC for evaluation of pneumonia. Pending CMP for evaluation of CKD, potassium status. Pending Trop, CK, EKG for evaluation of ACS/arrhythmia. Pending UA/UC, blood cultures for evaluation of sepsis. Pending TSH for evaluation of hypothyroidism. Pending BNP, CXR for evaluation of CHF. Solumedrol 125 mg, duoneb, magnesium 2g, levaquin 750 mg ordered for suspected COPD exacerbation, prior hx of pseudamonas. EKG performed at 0603: rate 105, regular rhythm, left axis, occasional PVCs, left BBB, no acute ST changes. Similar to prior 06/22/17 01/16/18 06:40 Labs reviewed: - Leukocytosis, WBC 20.2 - Anemia, Hgb 10.5 - VBG: - Normal pH - Elevated pCO2, 73.4 - Elevated HCO3-, 42 - Normal pO2 BIPAP ordered. Respiratory paged. 01/16/18 06:52 Pt now on BIPAP. Repeat vitals: - BP 126/104 - HR 55 - SPO2 95% on BIPAP, 40% FiO2 01/16/18 07:21 <Yuni Durant - Last Filed: 01/16/18 07:21> *DC/Admit/Observation/Transfer <Yuni Durant - Last Filed: 01/16/18 07:21> - Discharge Dispostion Decision to Admit order Date/Time: Decision to Admit Order Category Date Time Status Decision to Admit to Hospital Routine Admission 01/16/18 10:16 Ordered <Shasta Sebastian - Last Filed: 01/16/18 10:17> Diagnosis at time of Disposition: COPD exacerbation CHF exacerbation Qualifiers: Heart failure type: systolic Qualified Code(s): I50.23 - Acute on chronic systolic (congestive) heart failure - Discharge Dispostion Condition at time of disposition: Fair - Referrals Referrals: Isaiah Thompson MD [Primary Care Provider] -
--- NOTE | 2018-01-16 05:09 | PDOC ---
Attending Attestation - Resident Resident Name: Yuni Durant - HPI HPI: 01/16/18 06:21 Pt presents to the ED complaining of wheezing and shortness of breath consistent with prior COPD exacerbations, as well as fever at home and productive cough for three days. Patient has extensive cardiac history as described in resident note. Mild improvement after nebs by EMS. 01/16/18 06:25 - Physicial Exam PE: 01/16/18 06:27 Agree with resident exam. Patient is speaking in three to four word sentences but is not tachypneic or using accessory muscles. She is resting, but is easily arousable and is oriented x 3. - Medical Decision Making 01/16/18 06:21 : [phone] 01/16/18 06:30 Pt presents to the ED complaining of wheezing and shortness of breath consistent with prior COPD exacerbations. Will treat with nebs and steroids and antibiotics and admit to medicine. Will check labs and CXR. Will check VBG to evaluate for CO2 retention. 01/16/18 06:32
[2018-01-16] MEDS ORDERED: ALBUTEROL SO4 2.5/IPRATROPIUM 0.5 INH SOL 3 ML VIAL.NEB. NEB ONE ×2 (05:22→06:11)
[2018-01-16] MEDS ORDERED: methylPREDNISolone NA SUCC 125 MG/2 ML VIAL IVPUSH ONE (05:24)
[2018-01-16] MEDS ORDERED: MAGNESIUM SULF 50% (8.12 MEQ/2 ML-1 GM VIAL) ONE (06:11)
[2018-01-16] MEDS ORDERED: methylPREDNISolone NA SUCC 125 MG/2 ML VIAL ONE (06:12)
[2018-01-16 06:25] LABS: BASO % 0.4 % (0-2.0); EOS % 0.4 % (0-4.5); HEMOGLOBIN 10.5 GM/dL (10.7-15.3); LYMPH % 4.5 % (8-40); MCH 29.7 pg (25.7-33.7); MCHC 30.7 g/dl (32.0-36.0); MEAN CELL VOLUME 96.8 fl (80-96); MEAN PLT VOLUME 7.9 fl (7.5-11.1); NEUT % 92.7 % (42.8-82.8); PLATELET COUNT 298 K/MM3 (134-434); RBC 3.52 M/mm3 (3.60-5.2); RDW 17.6 % (11.6-15.6); WHITE BLOOD COUNT 20.2 K/mm3 (4.0-10.0)
[2018-01-16 06:25] LABS: VENOUS PH 7.38 (7.32-7.42); VENOUS PO2 29.9 mmHg (28-48)
[2018-01-16 06:31] LABS: VENOUS PC02 73.4 mmHg (38-52)
[2018-01-16 06:45] LABS: INR 0.95 (0.83-1.09); PROTHROMBIN TIME (PATIENT) 11.2 SEC (9.7-13.0)
[2018-01-16 06:48] LABS: ACTIVATED PTT 24.7 SECONDS (25.2-36.5)
[2018-01-16] MEDS ORDERED: ASPIRIN 81 MG CHEWABLE TABLETS PO ONE (09:32)
--- NOTE | 2018-01-16 10:12 | PDOC ---
*Physical Exam - Vital Signs Last Vital Signs Temp Pulse Resp BP Pulse Ox 98.2 F 87 20 126/104 H 98 01/16/18 08:00 01/16/18 06:50 01/16/18 06:50 01/16/18 06:50 01/16/18 06:57 <Cadence Chu - Last Filed: 01/16/18 10:13> - Vital Signs Last Vital Signs Temp Pulse Resp BP Pulse Ox 98.2 F 87 20 126/104 H 98 01/16/18 08:00 01/16/18 06:50 01/16/18 06:50 01/16/18 06:50 01/16/18 06:57 <Shasta Sebastian - Last Filed: 01/16/18 10:16> ED Treatment Course - LABORATORY CBC & Chemistry Diagram: 01/16/18 05:21 01/16/18 06:00 - ADDITIONAL ORDERS Additional order review: Laboratory Results 01/16/18 01/16/18 01/16/18 06:00 06:00 06:00 PT with INR INR PTT (Actin FS) VBG pH POC VBG pCO2 POC VBG pO2 Mixed VBG HCO3 Sodium Potassium Chloride Carbon Dioxide Anion Gap BUN Creatinine Creat Clearance w eGFR Random Glucose Lactic Acid 1.0 Calcium Total Bilirubin AST ALT Alkaline Phosphatase CK-MB (CK-2) Troponin I 0.30 H Cancelled B-Natriuretic Peptide 10640.20 H Total Protein Albumin TSH 2.42 01/16/18 01/16/18 01/16/18 06:00 06:00 06:00 PT with INR 11.20 INR 0.95 PTT (Actin FS) 24.7 L VBG pH 7.38 POC VBG pCO2 73.4 H* D POC VBG pO2 29.9 Mixed VBG HCO3 42.0 H* Sodium Cancelled Potassium Cancelled Chloride Cancelled Carbon Dioxide Cancelled Anion Gap Cancelled BUN Cancelled Creatinine Cancelled Creat Clearance w eGFR Cancelled Random Glucose Cancelled Lactic Acid Calcium Cancelled Total Bilirubin Cancelled AST Cancelled ALT Cancelled Alkaline Phosphatase Cancelled CK-MB (CK-2) Cancelled Troponin I Cancelled B-Natriuretic Peptide Total Protein Cancelled Albumin Cancelled TSH 01/16/18 05:21 RBC 3.52 L MCV 96.8 H MCHC 30.7 L RDW 17.6 H MPV 7.9 Neutrophils % 92.7 H Lymphocytes % 4.5 L D Monocytes % 2.0 L D Eosinophils % 0.4 D Basophils % 0.4 D - Medications Given in the ED: ED Medications Discontinued Medications Generic Name Dose Route Start Last Admin Trade Name Erik PRN Reason Stop Dose Admin Albuterol/Ipratropium 3 amp 01/16/18 05:22 01/16/18 06:34 Duoneb - NEB 01/16/18 05:23 3 amp ONCE ONE Administration Levofloxacin 750 mg in 150 mls @ 100 mls/hr 01/16/18 05:32 01/16/18 07:12 Levaquin 750 Mg Premixed Ivpb - IVPB 01/16/18 07:01 100 mls/hr ONCE ONE Administration Protocol Magnesium Sulfate/Dextrose 2 200 mls @ 100 mls/hr 01/16/18 05:26 01/16/18 07: 12 gm/ Miscellaneous IVPB 01/16/18 07:25 100 mls/hr ONCE ONE Administration Methylprednisolone Sodium Succinate 125 mg 01/16/18 05:24 01/16/18 06:34 Solu-Medrol - IVPUSH 01/16/18 05:25 125 mg ONCE ONE Administration <Cadence Chu - Last Filed: 01/16/18 10:13> - LABORATORY CBC & Chemistry Diagram: 01/16/18 05:21 01/16/18 06:00 - ADDITIONAL ORDERS Additional order review: Laboratory Results 01/16/18 01/16/18 01/16/18 06:00 06:00 06:00 PT with INR INR PTT (Actin FS) VBG pH POC VBG pCO2 POC VBG pO2 Mixed VBG HCO3 Sodium Potassium Chloride Carbon Dioxide Anion Gap BUN Creatinine Creat Clearance w eGFR Random Glucose Lactic Acid 1.0 Calcium Total Bilirubin AST ALT Alkaline Phosphatase CK-MB (CK-2) Troponin I 0.30 H Cancelled B-Natriuretic Peptide 16636.20 H Total Protein Albumin TSH 2.42 01/16/18 01/16/18 01/16/18 06:00 06:00 06:00 PT with INR 11.20 INR 0.95 PTT (Actin FS) 24.7 L VBG pH 7.38 POC VBG pCO2 73.4 H* D POC VBG pO2 29.9 Mixed VBG HCO3 42.0 H* Sodium Cancelled Potassium Cancelled Chloride Cancelled Carbon Dioxide Cancelled Anion Gap Cancelled BUN Cancelled Creatinine Cancelled Creat Clearance w eGFR Cancelled Random Glucose Cancelled Lactic Acid Calcium Cancelled Total Bilirubin Cancelled AST Cancelled ALT Cancelled Alkaline Phosphatase Cancelled CK-MB (CK-2) Cancelled Troponin I Cancelled B-Natriuretic Peptide Total Protein Cancelled Albumin Cancelled TSH 01/16/18 05:21 RBC 3.52 L MCV 96.8 H MCHC 30.7 L RDW 17.6 H MPV 7.9 Neutrophils % 92.7 H Lymphocytes % 4.5 L D Monocytes % 2.0 L D Eosinophils % 0.4 D Basophils % 0.4 D - Medications Given in the ED: ED Medications Discontinued Medications Generic Name Dose Route Start Last Admin Trade Name Freq PRN Reason Stop Dose Admin Albuterol/Ipratropium 3 amp 01/16/18 05:22 01/16/18 06:34 Duoneb - NEB 01/16/18 05:23 3 amp ONCE ONE Administration Levofloxacin 750 mg in 150 mls @ 100 mls/hr 01/16/18 05:32 01/16/18 07:12 Levaquin 750 Mg Premixed Ivpb - IVPB 01/16/18 07:01 100 mls/hr ONCE ONE Administration Protocol Magnesium Sulfate/Dextrose 2 200 mls @ 100 mls/hr 01/16/18 05:26 01/16/18 07: 12 gm/ Miscellaneous IVPB 01/16/18 07:25 100 mls/hr ONCE ONE Administration Methylprednisolone Sodium Succinate 125 mg 01/16/18 05:24 01/16/18 06:34 Solu-Medrol - IVPUSH 01/16/18 05:25 125 mg ONCE ONE Administration <Shasta Sebastian - Last Filed: 01/16/18 10:16> Medical Decision Making - Medical Decision Making 01/16/18 10:[address] Brown, covering for Dr. Geiger today. will admit patient. <Cadence Chu - Last Filed: 01/16/18 10:13> - Medical Decision Making signed out from Koki Fry 7am pending labs, workup and admit admit to Dr. geiger. vitals initially notable for hypoxia and tachypnea, treated now remains on bipap for acute respiratory failure 2/2 combo copd and chf bnp and trop elevated, as expected. ASA given. levaquin for abx coverage. leukocytosis noted, covered appropriately telemetry admit. 01/16/18 10:15 01/16/18 10:16 <Shasta Sebastian - Last Filed: 01/16/18 10:16> *DC/Admit/Observation/Transfer - Discharge Dispostion Decision to Admit order: Yes Decision to Admit order Date/Time: 01/16/18 10:12 <Cadence Chu - Last Filed: 01/16/18 10:13> - Discharge Dispostion Decision to Admit order: Yes <Shasta Sebastian - Last Filed: 01/16/18 10:16> Diagnosis at time of Disposition: COPD exacerbation CHF exacerbation Qualifiers: Heart failure type: systolic Qualified Code(s): I50.23 - Acute on chronic systolic (congestive) heart failure - Discharge Dispostion Condition at time of disposition: Fair - Referrals Referrals: Isaiah Geiger MD [Primary Care Provider] - - Patient Instructions - Post Discharge Activity
[2018-01-16] MEDS ORDERED: ASPIRIN 325 MG TABLET ONE (10:26)
--- NOTE | 2018-01-16 10:33 | EKG ---
Test Reason : Blood Pressure : / mmHG Vent. Rate : 105 BPM Atrial Rate : 105 BPM P-R Int : 150 ms QRS Dur : 144 ms QT Int : 390 ms P-R-T Axes : 072 -39 094 degrees QTc Int : 515 ms SINUS TACHYCARDIA WITH OCCASIONAL PREMATURE VENTRICULAR COMPLEXES LEFT AXIS DEVIATION LEFT BUNDLE BRANCH BLOCK ABNORMAL ECG WHEN COMPARED WITH ECG OF 13-OCT-2017 03:17, LEFT BUNDLE BRANCH BLOCK IS NOW PRESENT Confirmed by William Olmedo MD ([id number]) on 01/16/2018 10:33:04 AM Referred By: Confirmed By:William Olmedo MD
[2018-01-16 10:47] LABS: ALBUMIN 2.9 g/dl (3.4-5.0)
[2018-01-16 10:56] LABS: ALK PHOS 77 U/L (45-117); ANION GAP 15 MMOL/L (8-16); BILIRUBIN,TOTAL 0.6 mg/dL (0.2-1); BLOOD UREA NITROGEN 86 mg/dL (7-18); CALCIUM 9.1 mg/dL (8.5-10.1); CHLORIDE 85 mmol/L (98-107); CO2 35 mmol/L (21-32); CREATININE 2.9 mg/dL (0.55-1.3); GLUCOSE,RANDOM 108 mg/dL (74-106); N-TERMINAL BNP 34378.2 pg/ml (5-450); POTASSIUM 3.8 mmol/L (3.5-5.1); SGOT/AST 19 U/L (15-37); SGPT/ALT 16 U/L (13-61); SODIUM 134 mmol/L (136-145); TOT PROT 6.9 g/dl (6.4-8.2)
--- NOTE | 2018-01-16 10:56 | CON.CARD ---
Consult Consult Specialty:: Cardiology Referred by:: Dr Thompson Reason for Consultation:: CAD, SOB, elevated troponin - History of Present Illness Chief Complaint: sob History of Present Illness: 77year-old woman with a PMHx of CAD, s/p PCI/stenting in the distant past, paroxysmal atrial fibrillation, COPD (3L O2), lung cancer (remission), breast cancer (8 years ago), CKD stage 5, aortic stenosis s/p balloon valvuloplasty at [facility] [place] 12/27/[address] Dion Mane (cath showed CAD and patent stents by report of the patients ), recently treated for pneumonia, COPD and CHF exacerbation, now presents with several days worsening SOB, cough, sputum without chest pain. Found with CHF, elevated troponin (0.3) and BNP, creat 2.9. Echocardiogram 06/23/2017 showed significant segmental wall motion abnormalities with moderate LV systolic dysfunction. LVEF 35-40%. Moderate RV dysfunction. Moderate to severe and mild AI. Workup at [facility] [place] (per Dr Gloria Kearney-partner of Dr Mane) showed patent stents , EF 25-30. - History Source History Provided By: Patient, Medical Record - Past Medical History Cardio/Vascular: Yes: Aortic Stenosis, CAD (with coronary stenting), HTN, Hyperlipdemia, Mitral Insufficiency, Pulmonary Hypertension Pulmonary: Yes: Cancer (Chemothrerapy for small cell carcinoma- Dr Simpson), COPD, O2 Dependent, Pneumonia. No: Pulmonary Embolus, Sleep Apnea Gastrointestinal: Yes: Diverticulosis, Other (Breast lumpectomy) Renal/: Yes: Renal Failure, Renal Inusuff Psych: Yes: Anxiety Musculoskeletal: Yes: Chronic low back pain, Osteoarthritis Endocrine: Yes: Hypothyroidism, Osteopenia - Past Surgical History Past Surgical History: Yes: Laminectomy (cervical ', lumbar '), Stent, Tonsillectomy, Tubal Ligation - Alcohol/Substance Use Hx Alcohol Use: No Date of Last Use: 02/27/81 - Smoking History Smoking history: Never smoked Have you smoked in the past 12 months: No Aproximately how many cigarettes per day: 0 If you are a former smoker, when did you quit?: 2014 - Social History Usual Living Arrangement: With Spouse ADL: Independent 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 History of Recent Travel: No Home Medications - Allergies Allergies/Adverse Reactions: Allergies Allergy/AdvReac Type Severity Reaction Status Date / Time No Known Allergies Allergy Verified 01/16/18 07:38 - Home Medications Home Medications: Ambulatory Orders Carvedilol [Coreg -] 3.125 mg PO BID 12/18/16 Levothyroxine [Synthroid -] 88 mcg PO DAILY 12/18/16 Multivitamin [Daily Multiple Vitamin] 1 each PO DAILY 06/22/17 Mirtazapine [Remeron -] 15 mg PO HS #30 tablet 06/27/17 Citalopram Hydrobromide [Citalopram HBr] 40 mg PO DAILY 10/13/17 Furosemide [Lasix] 80 mg PO DAILY 10/13/17 Magnesium Oxide [Mag-Ox -] 400 mg PO BID 10/13/17 Prednisone 10 mg PO BID 10/13/17 Alprazolam [Xanax] 0.125 mg PO DAILY PRN 01/16/18 Aspirin 81 mg PO DAILY 01/16/18 Atorvastatin Ca [Lipitor] 40 mg PO DAILY 01/16/18 Budesonide/Formeterol Fumarate [SYMBICORT 160/4.5mcg -] 1 inh PO BID 01/16/18 Oxycodone HCl/Acetaminophen [Percocet 5-325 mg Tablet] 1 - 2 tab PO Q6H PRN Sodium Polystyrene Sulfonate [Kayexalate] 30 gm PO DAILY PRN 01/16/18 Tiotropium [place] [Spiriva Respimat] 4 gm IH DAILY 01/16/18 Family Disease History - Family Disease History Family Disease History: CA: Father (diffuse unknown primary), Sister ( of lung cancer), Other: Mother ( after hip fracture) Vital Signs: Vital Signs Temperature 98.2 F 01/16/18 08:00 Pulse Rate 96 H 01/16/18 10:41 Respiratory Rate 16 01/16/18 10:41 Blood Pressure 122/73 01/16/18 10:41 O2 Sat by Pulse Oximetry (%) 100 01/16/18 10:41 Constitutional: Yes: Calm, Mild Distress Eyes: Yes: Conjunctiva Clear, EOM Intact HENT: Yes: Atraumatic, Normocephalic Neck: Yes: Trachea Midline Respiratory: Yes: Rales (1/2 up bilat) Gastrointestinal: Yes: Normal Bowel Sounds Renal/: Yes: WNL JVD: Yes Carotid Bruit: No PMI: Displaced Heart Sounds: Yes: S1, S2 Murmur: Yes: Systolic Murmur, Grade 2 Musculoskeletal: Yes: WNL Extremities: Yes: WNL Edema: No Peripheral Pulses WNL: Yes - Other Data Labs, Other Data: CBC, BMP 01/16/18 05:21 01/16/18 06:00 INR, PTT INR 0.95 (0.83-1.09) 01/16/18 06:00 Troponin, BNP 01/16/18 01/16/18 01/16/18 06:00 06:00 06:00 Troponin I Cancelled Cancelled 0.30 H B-Natriuretic Peptide 84207.20 H Troponin, BNP 01/16/18 01/16/18 01/16/18 06:00 06:00 06:00 Troponin I Cancelled Cancelled 0.30 H B-Natriuretic Peptide 49296.20 H Imaging - Results X-ray: Report Reviewed (chf) EKG: Report Reviewed (nsr lbbb) Assessment/Plan 77year-old woman with a PMHx of CAD, s/p PCI/stenting in the distant past, paroxysmal atrial fibrillation, COPD (3L O2), lung cancer (remission), breast cancer (8 years ago), CKD stage 5, aortic stenosis s/p balloon valvuloplasty at [facility] [place] 12/27/[address] Dion Mane (cath showed CAD and patent stents by report of the patients ), recently treated for pneumonia, COPD and CHF exacerbation, now presents with several days worsening SOB, cough, sputum without chest pain. Found with CHF, elevated troponin (0.3) and BNP, creat 2.9. Echocardiogram 06/23/2017 showed significant segmental wall motion abnormalities with moderate LV systolic dysfunction. LVEF 35-40%. Moderate RV dysfunction. Moderate to severe and mild AI. Workup at [facility] [place] (per Dr Gloria Kearney-partner of Dr Mane) showed patent stents , EF 25-30. 1. CHF--acute on chronic systolic chf, possibly triggered by worsening renal disease and hypoxia from COPD. -needs IV lasix 80 bid for diuresis. -daily wts, fluid and salt restriction. -consider renal eval for GFR < 15, pulm eval for COPD. 2. PAF--she is in nsr at present. -no change in RX. 3. Elevated troponin -known history of CAD and stenting, with reduced EF and WMA but worsening creatinine precludes ischemia eval at this point, and recent cardiac cath at [facility] [place] showed no need for PCI. -elevated troponin may be due to renal disease rather than TX. -repeat echo 4. Nonrheumatic Aortic Stenosis -repeat echo -recent BVP, will ultimately need TAVR when renal issues are stable.
[2018-01-16] MEDS ORDERED: FUROSEMIDE 40 MG TABLET (FP) ONE (11:49)
[2018-01-16] MEDS ORDERED: LEVOTHYROXINE NA 25 MCG TABLET (FP) ONE (11:49)
--- NOTE | 2018-01-16 11:57 | HP ---
Admitting History and Physical - Admission Chief Complaint: cough and shortness of breath History of Present Illness: 77 yr old female with cough,shortness of breath,copd,chf,paroxsymal afib came, cad s/p pci came in for for cough shortness of breath found to be in CHF with elevated bnp and troponin and wbc 20.2 in ER solumedrol albuterol magnesium levaquin placed on bipap bc VBG showed pCO2 73.4 History Source: Patient, Medical Record - Past Medical History Cardiovascular: Yes: Aortic Stenosis, CAD (with coronary stenting), HTN, Hyperlipdemia, Mitral Insufficiency, Pulmonary Hypertension Pulmonary: Yes: Cancer (Chemothrerapy for small cell carcinoma- Dr Simpson), COPD, O2 Dependent, Pneumonia. No: Pulmonary Embolus, Sleep Apnea Gastrointestinal: Yes: Diverticulosis, Other (Breast lumpectomy) Renal/: Yes: Renal Failure, Renal Inusuff Heme/Onc: Yes: Cancer Psych: Yes: Anxiety Musculoskeletal: Yes: Chronic low back pain, Osteoarthritis Endocrine: Yes: Hypothyroidism, Osteopenia - Past Surgical History Past Surgical History: Yes: Laminectomy (cervical ', lumbar '), Stent, Tonsillectomy, Tubal Ligation - Smoking History Smoking history: Never smoked Have you smoked in the past 12 months: No Aproximately how many cigarettes per day: 0 If you are a former smoker, when did you quit?: 2014 - Alcohol/Substance Use Hx Alcohol Use: No Date of Last Use: 02/27/81 - Social History ADL: Independent 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 History of Recent Travel: No Home Medications - Allergies Allergies/Adverse Reactions: Allergies Allergy/AdvReac Type Severity Reaction Status Date / Time No Known Allergies Allergy Verified 01/16/18 07:38 - Home Medications Home Medications: Ambulatory Orders Carvedilol [Coreg -] 3.125 mg PO BID 12/18/16 Levothyroxine [Synthroid -] 88 mcg PO DAILY 12/18/16 Multivitamin [Daily Multiple Vitamin] 1 each PO DAILY 06/22/17 Mirtazapine [Remeron -] 15 mg PO HS #30 tablet 06/27/17 Citalopram Hydrobromide [Citalopram HBr] 40 mg PO DAILY 10/13/17 Furosemide [Lasix] 80 mg PO DAILY 10/13/17 Magnesium Oxide [Mag-Ox -] 400 mg PO BID 10/13/17 Prednisone 10 mg PO BID 10/13/17 Alprazolam [Xanax] 0.125 mg PO DAILY PRN 01/16/18 Aspirin 81 mg PO DAILY 01/16/18 Atorvastatin Ca [Lipitor] 40 mg PO DAILY 01/16/18 Budesonide/Formeterol Fumarate [SYMBICORT 160/4.5mcg -] 1 inh PO BID 01/16/18 Oxycodone HCl/Acetaminophen [Percocet 5-325 mg Tablet] 1 - 2 tab PO Q6H PRN Sodium Polystyrene Sulfonate [Kayexalate] 30 gm PO DAILY PRN 01/16/18 Tiotropium [place] [Spiriva Respimat] 4 gm IH DAILY 01/16/18 Family Disease History - Family Disease History Family Disease History: CA: Father (diffuse unknown primary), Sister ( of lung cancer), Other: Mother ( after hip fracture) Review of Systems - Review of Systems Respiratory: reports: Cough, SOB Physical Examination Vital Signs: Vital Signs Temperature 98.2 F 01/16/18 08:00 Pulse Rate 96 H 01/16/18 10:41 Respiratory Rate 16 01/16/18 10:41 Blood Pressure 122/73 01/16/18 10:41 O2 Sat by Pulse Oximetry (%) 100 01/16/18 10:41 Labs: CBC, BMP 01/16/18 05:21 01/16/18 06:00 Problem List - Problems (1) CHF exacerbation Assessment/Plan: ivlasix 80mg BID strict I/o monitor lytes cardiology consult appreciated echo Code(s): I50.9 - HEART FAILURE, UNSPECIFIED Qualifiers: Heart failure type: systolic Qualified Code(s): I50.23 - Acute on chronic systolic (congestive) heart failure (2) COPD exacerbation Assessment/Plan: bipap bronchodilators abg to recheck Pco2 pulm consult Code(s): J44.1 - CHRONIC OBSTRUCTIVE PULMONARY DISEASE W (ACUTE) EXACERBATION (3) Aortic stenosis Assessment/Plan: echo Code(s): I35.0 - NONRHEUMATIC AORTIC (VALVE) STENOSIS Qualifiers: Cardiac valve disease etiology: nonrheumatic Qualified Code(s): I35.0 - Nonrheumatic aortic (valve) stenosis (4) CKD (chronic kidney disease) Assessment/Plan: renal eval Code(s): N18.9 - CHRONIC KIDNEY DISEASE, UNSPECIFIED (5) Hypothyroid Assessment/Plan: tsh slightly high inc synthroid dose- patient takes half of synthroid 88mcg at home will increase to 50mcg of synthroid Code(s): E03.9 - HYPOTHYROIDISM, UNSPECIFIED Qualifiers: Hypothyroidism type: unspecified Qualified Code(s): E03.9 - Hypothyroidism , unspecified
[2018-01-16] MEDS ORDERED: LEVOTHYROXINE NA 50 MCG TABLET (FP) PO ONE (12:06)
[2018-01-16] MEDS ORDERED: FUROSEMIDE 40 MG TABLET (FP) PO ONE (12:13)
[2018-01-16 12:21] LABS: VENOUS PC02 49.8 mmHg (38-52); VENOUS PH 7.5 (7.32-7.42); VENOUS PO2 74.5 mmHg (28-48)
[2018-01-16 12:39] LABS: ARTERIAL BLD GAS O2 SATURATION 97.1 % (90-98.9); ARTERIAL BLOOD GAS PCO2 47.7 mmHg (35-45); CARBOXYHEMOGLOBIN 1.5 gm% (0.5-2.0)
[2018-01-16 12:40] LABS: ALLENS TEST POSITIVE
[2018-01-16 12:48] LABS: ANISOCYTOSIS 1+; MACROCYTOSIS 1+; OVALOCYTE 1+; PLATELET ESTIMATE NORMAL
--- NOTE | 2018-01-16 14:04 | PN ---
Progress Note (short form) - Note Progress Note: PULMONARY CONSULTATION DICTATED 01/16/19 IMP ACUTE ON CHRONIC HYPOXEMIC RESPIRATORY FAILURE ACUTE ON CHRONIC CHF COPD ASHD S/P STENT + TROPONIN H/O LUNG CA NON-SMALL CA S/P CHEMO PAF S/P BALLOON VALVULOPLASTY ACUTE ON CHRONIC KIDNEY DISEASE H/O BREAST CA PLAN IV LASIX O2 NIPPV NEEDED FOR INCREASED SOB INHALED BRONCHODILATORS STRICT I+O F/U CHEST CT TREND TROPONIN MONITOR LYTES,RENAL FUNCTION DR ALVAREZ Problem List - Problems (1) Acute on chronic respiratory failure with hypoxia and hypercapnia Code(s): J96.21 - ACUTE AND CHRONIC RESPIRATORY FAILURE WITH HYPOXIA; J96.22 - ACUTE AND CHRONIC RESPIRATORY FAILURE WITH HYPERCAPNIA (2) CHF exacerbation Code(s): I50.9 - HEART FAILURE, UNSPECIFIED Qualifiers: Heart failure type: systolic Qualified Code(s): I50.23 - Acute on chronic systolic (congestive) heart failure (3) COPD exacerbation Code(s): J44.1 - CHRONIC OBSTRUCTIVE PULMONARY DISEASE W (ACUTE) EXACERBATION (4) ASHD (arteriosclerotic heart disease) Code(s): I25.10 - ATHSCL HEART DISEASE OF [place] CORONARY ARTERY W/O ANG PCTRS (5) Acute on chronic renal failure Code(s): N17.9 - ACUTE KIDNEY FAILURE, UNSPECIFIED; N18.9 - CHRONIC KIDNEY DISEASE, UNSPECIFIED Qualifiers: Acute renal failure type: unspecified Chronic kidney disease stage: unspecified stage Qualified Code(s): N17.9 - Acute kidney failure, unspecified (6) Troponin I above reference range Code(s): R74.8 - ABNORMAL LEVELS OF OTHER SERUM ENZYMES (7) HTN (hypertension) Code(s): I10 - ESSENTIAL (PRIMARY) HYPERTENSION Qualifiers: Hypertension type: essential hypertension Qualified Code(s): I10 - Essential (primary) hypertension (8) Lung cancer Code(s): C34.90 - MALIGNANT NEOPLASM OF UNSP PART OF UNSP BRONCHUS OR LUNG Qualifiers: Lung location: unspecified part of lung (9) S/P coronary artery stent placement Code(s): Z95.5 - PRESENCE OF CORONARY ANGIOPLASTY IMPLANT AND GRAFT
--- NOTE | 2018-01-16 15:08 | ECHO ---
Name: BRITTA HUTTON Exam:Adult Echocardiogram Study Date: 01/16/2018 01:09 PM Age: 77 yrs Reason For Study: AORTIC VALVE STENOSIS Height: 63 in Weight: 109 lb BSA: 1.5 m2 MMode/2D Measurements & Calculations IVSd: 1.1 cm Ao root diam: 2.6 cm LVIDd: 4.8 cm LA dimension: 3.4 cm LVIDs: 3.9 cm LVPWd: 1.1 cm EDV(Teich): 108.9 ml LVOT diam: 1.9 cm ESV(Teich): 66.3 ml TAPSE: 2.9 cm Doppler Measurements & Calculations MV E max cruz: 41.8 cm/sec Ao V2 max: 355.0 cm/sec MV A max cruz: 74.0 cm/sec Ao max P.4 mmHg MV E/A: 0.56 Ao V2 mean: 245.2 cm/sec Ao mean P.6 mmHg Ao V2 VTI: 60.5 cm AI P1/2t: 1033 msec ERNESTO(V,D): 0.47 cm2 AI max cruz: 296.2 cm/sec LV V1 max P.5 mmHg AI max P.1 mmHg LV V1 max: 62.0 cm/sec AI dec slope: 84.0 cm/sec2 MR max cruz: 331.3 cm/sec TR max cruz: 260.4 cm/sec MR max P.6 mmHg TR max P.5 mmHg Med Peak E' Cruz: 2.9 cm/sec Med E/e': 14.3 Procedure A complete two-dimensional transthoracic echocardiogram was performed (2D, M-mode, Doppler and color flow Doppler). Left Ventricle The left ventricle is normal in size. Ejection Fraction = 30%. Left ventricular systolic function is severely reduced. The transmitral spectral Doppler flow pattern is suggestive of impaired LV relaxation. There is septal akinesis. There is anterior wall akinesis. There is apical akinesis. Right Ventricle The right ventricle is normal in size and function. Atria Normal left and right atrial size and function. Mitral Valve There is mild mitral annular calcification. There is mild to moderate mitral regurgitation. Tricuspid Valve The tricuspid valve is normal. There is mild tricuspid regurgitation. Right ventricular systolic pres sure is elevated at 33 mmhg. Aortic Valve Severe valvular aortic stenosis. Aortic max pressure gradient= 50.4. Aortic mean pressure gradient= 2 8.6. Pulmonic Valve The pulmonic valve is not well seen, but is grossly normal. Trace pulmonic valvular regurgitation. Great Vessels The aortic root is normal size. Pericardium/Pleura There is no pericardial effusion. There is no pleural effusion. Interpretation Summary Left ventricular systolic function is severely reduced. Ejection Fraction = 30%. There is septal akinesis. There is anterior wall akinesis. There is apical akinesis. The right ventricle is normal in size and function. There is mild mitral annular calcification. There is mild to moderate mitral regurgitation. There is mild tricuspid regurgitation. Right ventricular systolic pressure is elevated at 33 mmhg. Severe valvular aortic stenosis. Aortic max pressure gradient= 50.4 Aortic mean pressure gradient= 28.6 Trace pulmonic valvular regurgitation. MD William Olmedo 01/16/2018 03:07 PM
--- NOTE | 2018-01-16 15:30 | EKG ---
Test Reason : Blood Pressure : / mmHG Vent. Rate : 095 BPM Atrial Rate : 095 BPM P-R Int : 156 ms QRS Dur : 146 ms QT Int : 434 ms P-R-T Axes : 075 -41 092 degrees QTc Int : 545 ms SINUS RHYTHM WITH FREQUENT PREMATURE VENTRICULAR COMPLEXES POSSIBLE LEFT ATRIAL ENLARGEMENT LEFT AXIS DEVIATION LEFT BUNDLE BRANCH BLOCK ABNORMAL ECG WHEN COMPARED WITH ECG OF 16-JAN-2018 06:03, NO SIGNIFICANT CHANGE WAS FOUND Confirmed by William Olmedo MD ([id number]) on 01/16/2018 3:29:55 PM Referred By: Confirmed By:William Olmedo MD
[2018-01-16] MEDS: oxyCODONE HCL 5 MG TABLET PO PRN ×2 (16:29→22:33)
[2018-01-16] MEDS: ACETAMINOPHEN 325 MG TABLET (FP) PO PRN ×2 (16:33→22:32)
--- NOTE | 2018-01-16 17:29 | CON.ID ---
Consult Consult Specialty:: infectious disease Referred by:: dr matamoros Reason for Consultation:: leukocytosis - History of Present Illness Chief Complaint: SOB History of Present Illness: 77 yo female with COPD, on steroids at home, history of balloon valvuloplasty for in November, admitted for SOB, cough with beige sputum no hemoptysis no fevers has been on prednisone 10 mg daily for the last several months per patient received levaquin and steroids in ED now feels better - History Source History Provided By: Patient Limitations to Obtaining History: Poor Historian - Past Medical History Cardio/Vascular: Yes: Aortic Stenosis, CAD (with coronary stenting), HTN, Hyperlipdemia, Mitral Insufficiency, Pulmonary Hypertension Pulmonary: Yes: Cancer (Chemothrerapy for small cell carcinoma- Dr Simpson), COPD, O2 Dependent, Pneumonia. No: Pulmonary Embolus, Sleep Apnea Gastrointestinal: Yes: Diverticulosis, Other (Breast lumpectomy) Renal/: Yes: Renal Failure, Renal Inusuff Psych: Yes: Anxiety Musculoskeletal: Yes: Chronic low back pain, Osteoarthritis Endocrine: Yes: Hypothyroidism, Osteopenia - Past Surgical History Past Surgical History: Yes: Laminectomy (cervical ', lumbar '), Stent, Tonsillectomy, Tubal Ligation Additional Surgical History: amputation of thumb left hand - Alcohol/Substance Use Hx Alcohol Use: No Date of Last Use: 02/27/81 - Smoking History Smoking history: Former smoker Have you smoked in the past 12 months: No Aproximately how many cigarettes per day: 0 If you are a former smoker, when did you quit?: 1999 - Social History Usual Living Arrangement: With Spouse ADL: Independent 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 History of Recent Travel: No Home Medications - Allergies Allergies/Adverse Reactions: Allergies Allergy/AdvReac Type Severity Reaction Status Date / Time No Known Allergies Allergy Verified 01/16/18 07:38 - Home Medications Home Medications: Ambulatory Orders Carvedilol [Coreg -] 3.125 mg PO BID 12/18/16 Levothyroxine [Synthroid -] 0.5 tab PO DAILY 12/18/16 Multivitamin [Daily Multiple Vitamin] 1 each PO DAILY 06/22/17 Mirtazapine [Remeron -] 15 mg PO HS #30 tablet 06/27/17 Citalopram Hydrobromide [Citalopram HBr] 40 mg PO DAILY 10/13/17 Furosemide [Lasix] 80 mg PO DAILY 10/13/17 Magnesium Oxide [Mag-Ox -] 400 mg PO BID 10/13/17 Prednisone 10 mg PO BID 10/13/17 Alprazolam [Xanax] 0.125 mg PO DAILY PRN 01/16/18 Aspirin 81 mg PO DAILY 01/16/18 Atorvastatin Ca [Lipitor] 40 mg PO DAILY 01/16/18 Budesonide/Formeterol Fumarate [SYMBICORT 160/4.5mcg -] 1 inh PO BID 01/16/18 Oxycodone HCl/Acetaminophen [Percocet 5-325 mg Tablet] 1 - 2 tab PO Q6H PRN Sodium Polystyrene Sulfonate [Kayexalate] 30 gm PO DAILY PRN 01/16/18 Tiotropium [place] [Spiriva Respimat] 4 gm IH DAILY 01/16/18 Family Disease History - Family Disease History Family Disease History: CA: Father (diffuse unknown primary), Sister ( of lung cancer), Other: Mother ( after hip fracture) Review of Systems - Review of Systems Constitutional: denies: Chills, Diaphoresis, Fever Eyes: reports: No Symptoms HENT: reports: No Symptoms Neck: reports: No Symptoms Cardiovascular: reports: No Symptoms. denies: Chest Pain Respiratory: reports: Cough, SOB Gastrointestinal: reports: No Symptoms Genitourinary: reports: No Symptoms Physical Exam Vital Signs: Vital Signs Temperature 98.1 F 01/16/18 16:38 Pulse Rate 89 01/16/18 16:38 Respiratory Rate 20 01/16/18 16:38 Blood Pressure 119/85 01/16/18 16:38 O2 Sat by Pulse Oximetry (%) 95 01/16/18 16:38 Constitutional: Yes: Well Nourished, No Distress Eyes: Yes: Conjunctiva Clear HENT: Yes: Atraumatic, Normocephalic Neck: Yes: Supple Cardiovascular: Yes: Regular Rate and Rhythm Respiratory: Yes: Regular, CTA Bilaterally, Diminished Gastrointestinal: Yes: Normal Bowel Sounds, Soft Extremities: Yes: WNL, Amputation (left thumb amputation) Edema: No Psychiatric: Yes: Alert Labs: CBC, BMP 01/16/18 05:21 01/16/18 06:00 Problem List - Problems (1) COPD exacerbation Code(s): J44.1 - CHRONIC OBSTRUCTIVE PULMONARY DISEASE W (ACUTE) EXACERBATION (2) CHF exacerbation Code(s): I50.9 - HEART FAILURE, UNSPECIFIED Qualifiers: Heart failure type: systolic Qualified Code(s): I50.23 - Acute on chronic systolic (congestive) heart failure (3) CKD (chronic kidney disease) Code(s): N18.9 - CHRONIC KIDNEY DISEASE, UNSPECIFIED Assessment/Plan leukocytosis looks well cxray with no lobar infiltrate prolonged qtc would avoid quinolones start rocephin legionella/pneumococcal antigens chf and copd exacerbation ckd at baseline positive troponins - per cardiology contact isolation prior mrsa in sputum
[2018-01-16] MEDS ORDERED: PT OWN MED DRAWER 7, Y5N ONE (18:50)
[2018-01-16] MEDS: HEPARIN NA (PORCINE) 5,000 UNITS/ML 1ML VIAL SQ SCH (21:54)
[2018-01-16] MEDS: ATORVASTATIN CA 40 MG TABLET (FP) PO SCH (21:55)
[2018-01-16] MEDS: FUROSEMIDE 40 MG/4 ML INJECTABLE VIAL IVPUSH SCH (21:56)
[2018-01-16] MEDS ORDERED: FUROSEMIDE 40 MG TABLET (FP) PO SCH (22:00)
[2018-01-17] MEDS ORDERED: MIRTAZAPINE 15 MG TABLET (FP) PO ONE (00:34)
[2018-01-17] MEDS: methylPREDNISolone NA SUCC 40 MG/1 ML VIAL IVPUSH SCH ×4 (06:42→21:16)
[2018-01-17] MEDS: oxyCODONE HCL 5 MG TABLET PO PRN ×2 (06:44→21:11)
[2018-01-17] MEDS: LEVOTHYROXINE NA 50 MCG TABLET (FP) PO SCH (06:44)
[2018-01-17] MEDS: ACETAMINOPHEN 325 MG TABLET (FP) PO PRN (06:45)
[2018-01-17] MEDS ORDERED: LEVOTHYROXINE NA 100 MCG TABLET (FP) PO SCH ×2 (07:00)
[2018-01-17 07:33] LABS: HEMATOCRIT 31.3 % (32.4-45.2); HEMOGLOBIN 9.9 GM/dL (10.7-15.3); MCH 30.7 pg (25.7-33.7); MCHC 31.7 g/dl (32.0-36.0); MEAN CELL VOLUME 97.1 fl (80-96); MEAN PLT VOLUME 7.8 fl (7.5-11.1); PLATELET COUNT 254 K/MM3 (134-434); RBC 3.22 M/mm3 (3.60-5.2); RDW 16.9 % (11.6-15.6); WHITE BLOOD COUNT 10.2 K/mm3 (4.0-10.0)
[2018-01-17 07:48] LABS: PROTHROMBIN TIME (PATIENT) 11.8 SEC (9.7-13.0)
[2018-01-17 07:50] LABS: ACTIVATED PTT 25.9 SECONDS (25.2-36.5)
[2018-01-17 08:24] LABS: ALBUMIN 2.6 g/dl (3.4-5.0); ALK PHOS 65 U/L (45-117); ANION GAP 11 MMOL/L (8-16); BILIRUBIN,TOTAL 0.3 mg/dL (0.2-1); BLOOD UREA NITROGEN 92 mg/dL (7-18); CALCIUM 9.2 mg/dL (8.5-10.1); CHLORIDE 83 mmol/L (98-107); CO2 37 mmol/L (21-32); CREATININE 3.2 mg/dL (0.55-1.3); GLUCOSE,RANDOM 114 mg/dL (74-106); MAGNESIUM 3.6 mg/dL (1.8-2.4); POTASSIUM 4.2 mmol/L (3.5-5.1); SGOT/AST 21 U/L (15-37); SGPT/ALT 16 U/L (13-61); SODIUM 131 mmol/L (136-145); TOT PROT 6.6 g/dl (6.4-8.2)
--- NOTE | 2018-01-17 09:04 | PN ---
Progress Note, Physician - Current Medication List Current Medications: Active Medications Acetaminophen (Tylenol -) 650 mg PO Q6H PRN PRN Reason: Fever Or Pain Last Admin: 01/17/18 06:45 Dose: 650 mg Aspirin (Asa -) 81 mg PO DAILY [facility] Atorvastatin Calcium (Lipitor -) 40 mg PO HS [facility] Last Admin: 01/16/18 21:55 Dose: 40 mg Budesonide/Formoterol Fumarate (Symbicort 160/4.5mcg -) 2 puff IH DAILY@0800 [facility] Furosemide (Lasix Injection -) 80 mg IVPUSH BID [facility] Last Admin: 01/16/18 21:56 Dose: 80 mg Heparin Sodium (Porcine) (Heparin -) 5,000 unit SQ BID [facility] Last Admin: 01/16/18 21:54 Dose: 5,000 unit Ceftriaxone Sodium 1 gm/ (Dextrose) 50 mls @ 100 mls/hr IVPB DAILY [facility]; Protocol Levothyroxine Sodium (Synthroid -) 50 mcg PO AM [facility] Last Admin: 01/17/18 06:44 Dose: 50 mcg Methylprednisolone Sodium Succinate (Solu-Medrol -) 40 mg IVPUSH Q6H-IV NURIS Last Admin: 01/17/18 06:42 Dose: 40 mg Mirtazapine (Remeron -) 15 mg PO HS [facility] Oxycodone HCl (Roxicodone -) 10 mg PO Q6H PRN PRN Reason: PAIN > 6 Last Admin: 01/17/18 06:44 Dose: 10 mg Tiotropium [place] (Spiriva Respimat) 2 puff IH DAILY [facility] - Objective Vital Signs: Vital Signs Temperature 98.3 F 01/17/18 06:00 Pulse Rate 79 01/17/18 06:00 Respiratory Rate 20 01/17/18 06:00 Blood Pressure 112/70 01/17/18 06:00 O2 Sat by Pulse Oximetry (%) 96 01/16/18 21:00 Cardiovascular: Yes: S1, S2 Respiratory: Yes: Diminished, On Nasal O2 Gastrointestinal: Yes: Normal Bowel Sounds, Soft Labs: CBC, BMP 01/17/18 05:30 01/17/18 05:30 INR, PTT INR 1.00 (0.83-1.09) 01/17/18 05:30 Assessment/Plan - Problems (1) CHF exacerbation Assessment/Plan: iv lasix 80mg BID strict I/o monitor lytes cardiology consult appreciated echo Code(s): I50.9 - HEART FAILURE, UNSPECIFIED Qualifiers: Heart failure type: systolic Qualified Code(s): I50.23 - Acute on chronic systolic (congestive) heart failure (2) COPD exacerbation Assessment/Plan: bipap bronchodilators abg to recheck Pco2 pulm consult Code(s): J44.1 - CHRONIC OBSTRUCTIVE PULMONARY DISEASE W (ACUTE) EXACERBATION (3) Aortic stenosis Assessment/Plan: echo Code(s): I35.0 - NONRHEUMATIC AORTIC (VALVE) STENOSIS Qualifiers: Cardiac valve disease etiology: nonrheumatic Qualified Code(s): I35.0 - Nonrheumatic aortic (valve) stenosis (4) CKD (chronic kidney disease) Assessment/Plan: renal eval Code(s): N18.9 - CHRONIC KIDNEY DISEASE, UNSPECIFIED (5) Hypothyroid Assessment/Plan: tsh slightly high inc synthroid dose- patient takes half of synthroid 88mcg at home will increase to 50mcg of synthroid Code(s): E03.9 - HYPOTHYROIDISM, UNSPECIFIED Qualifiers: Hypothyroidism type: unspecified Qualified Code(s): E03.9 - Hypothyroidism , unspecified
--- NOTE | 2018-01-17 09:27 | CONS ---
DATE OF CONSULTATION: 01/16/2018 PULMONARY CONSULTATION REFERRING PHYSICIAN: Isaiah Thompson MD HISTORY OF PRESENT ILLNESS: The patient is a 77-year-old white female known to me from previous hospitalization. She has a past medical history of chronic obstructive pulmonary disease - O2 dependent, ASHD status post stent, paroxysmal atrial fibrillation, a history of breast cancer years ago, a history of lung cancer status post chemotherapy, chronic kidney disease, aortic stenosis status post valvuloplasty at [facility] in November 2017, congestive heart failure noted on a echocardiogram with moderate left ventricular systolic function with an left ventricular ejection fraction of 35% to 40%, RV dysfunction. She was admitted to [facility] with a complaint of a 3- to 4-day history of increasing shortness of breath, dyspnea on exertion and a cough productive of grayish sputum. She denied chest pain, nausea, vomiting, diaphoresis or hemoptysis. Her symptoms worsened, at which time she presented to the emergency room. In the ER , she was noted to have an elevated BNP as well as elevated troponin levels. A chest x-ray was performed which revealed mildly increased vascular congestion. She was felt to be in acute congestive heart failure. The patient was given Lasix with some clinical improvement. She was also placed on a BiPAP secondary to acute hypercapnia. The patient has a history of tobacco use, approximately one pack per day, but quit about 3 years ago. There is no history of occupational exposures or exposure to fumes. She denies any history of recent travel. There is no history of DVT or PE in the past. PMHX As above REVIEW OF SYSTEMS: Positive for dyspnea, positive for cough, positive for mild chest congestion. No fevers or chills. No chest pain, no palpitations, no hemoptysis. No abdominal pain. No lower extremity edema. PHYSICAL EXAMINATION: General: The patient is an elderly white female, awake and alert, in no acute distress. Vital Signs: She is currently afebrile. Blood pressure is 122/73, respiratory rate 16, O2 saturation is 97% on 3 liters. HEENT: Head is normocephalic, atraumatic. Neck: Supple. Heart: Regular. S1, S2. Chest: Bibasilar crackles. Abdomen: Soft. Bowel sounds are positive. Extremities: No cyanosis or edema. LABORATORY: WBC is 20.2, hemoglobin 10.5, hematocrit 34, platelet count of 298, 000. INR is 0.95. On blood gases, initial pH was 7.38, PCO2 was 73, PO2 was 29, bicarbonate was 42. Most recent blood gas on BiPAP showed pH of 7.50, PCO2 was 47, PO2 was 84, bicarbonate was 36, sat was 97. Chemistries showed a BUN of 86, creatinine 2.9. Initial troponin was 0.030. Repeat troponin was 0.23. BNP was 34,378. IMPRESSION: 1. [id number] hypoxemic, hypercapnic respiratory failure secondary to multiple factors, including [id number] congestive heart failure, chronic obstructive pulmonary disease with exacerbation and aortic stenosis status post balloon valvuloplasty. 2. History of breast cancer. 3. History of lung cancer status post chemotherapy. 4. Paroxysmal atrial fibrillation. 5. Arterial sclerotic heart disease. 6. Positive troponins. PLAN: 1. IV Lasix. 2. Supplemental O2. 3. Inhaled bronchodilators. 4. Steroids x 24 to 48 hours. 5. BiPAP as needed. 6. Nasal intermittent positive pressure ventilation as needed. 7. Follow up chest x-rays. 8. Follow up chest CT. 9. Trend troponins. FE ALVAREZ M.D. ERYN/[id number] MTDD
[2018-01-17] MEDS: ASPIRIN 81 MG CHEWABLE TABLETS PO SCH (09:33)
[2018-01-17] MEDS: FUROSEMIDE 40 MG/4 ML INJECTABLE VIAL IVPUSH SCH ×2 (09:33→21:24)
[2018-01-17] MEDS: HEPARIN NA (PORCINE) 5,000 UNITS/ML 1ML VIAL SQ SCH ×2 (09:33→21:23)
[2018-01-17] MEDS: BUDESONIDE/FORMETEROL FUMARATE 160/4.5 mcg INHALER IH SCH (09:34)
[2018-01-17] MEDS ORDERED: TIOTROPIUM BROMIDE 2.5 MCG (SPIRIVA) RESPIMAT INHALER IH SCH (10:00)
--- NOTE | 2018-01-17 10:48 | PN ---
Progress Note (short form) - Note Progress Note: feeling much better wants to go home Vital Signs Period Temp Pulse Resp BP Sys/Kennedy Pulse Ox Last 24 Hr 98.0 F-98.4 F 79-98 18-20 109-129/56-85 94-100 cor-rrr lungs bibasilar crackles abd soft,nt ext no edema CBC, BMP 01/17/18 05:30 01/17/18 05:30 Microbiology 01/16/18 06:00 Blood - Peripheral Venous Blood Culture - Preliminary NO GROWTH OBTAINED AFTER 24 HOURS, INCUBATION TO CONTINUE FOR 4 DAYS. 01/16/18 06:00 Blood - Peripheral Venous Blood Culture - Preliminary NO GROWTH OBTAINED AFTER 24 HOURS, INCUBATION TO CONTINUE FOR 4 DAYS. cxray improved a/p copd exacerbation chf exacerbation ?bronchitis-day 32 antibiotics ckd can switch to po ceftin 250 daily to finish 7 days please call back if needed Problem List - Problems (1) COPD exacerbation Code(s): J44.1 - CHRONIC OBSTRUCTIVE PULMONARY DISEASE W (ACUTE) EXACERBATION (2) CHF exacerbation Code(s): I50.9 - HEART FAILURE, UNSPECIFIED Qualifiers: Heart failure type: systolic Qualified Code(s): I50.23 - Acute on chronic systolic (congestive) heart failure (3) CKD (chronic kidney disease) Code(s): N18.9 - CHRONIC KIDNEY DISEASE, UNSPECIFIED
--- NOTE | 2018-01-17 11:17 | PN ---
Progress Note, Physician History of Present Illness: PULMONARY ALERT,FEELING BETTER,-CP,-SOB - Current Medication List Current Medications: Active Medications Acetaminophen (Tylenol -) 650 mg PO Q6H PRN PRN Reason: Fever Or Pain Last Admin: 01/17/18 06:45 Dose: 650 mg Aspirin (Asa -) 81 mg PO DAILY [facility] Last Admin: 01/17/18 09:33 Dose: 81 mg Atorvastatin Calcium (Lipitor -) 40 mg PO HS [facility] Last Admin: 01/16/18 21:55 Dose: 40 mg Budesonide/Formoterol Fumarate (Symbicort 160/4.5mcg -) 2 puff IH DAILY@0800 [facility] Last Admin: 01/17/18 09:34 Dose: 2 inh Furosemide (Lasix Injection -) 80 mg IVPUSH BID [facility] Last Admin: 01/17/18 09:33 Dose: 80 mg Heparin Sodium (Porcine) (Heparin -) 5,000 unit SQ BID [facility] Last Admin: 01/17/18 09:33 Dose: 5,000 unit Ceftriaxone Sodium 1 gm/ (Dextrose) 50 mls @ 100 mls/hr IVPB DAILY [facility]; Protocol Levothyroxine Sodium (Synthroid -) 50 mcg PO AM [facility] Last Admin: 01/17/18 06:44 Dose: 50 mcg Methylprednisolone Sodium Succinate (Solu-Medrol -) 40 mg IVPUSH Q6H-IV [facility] Last Admin: 01/17/18 09:33 Dose: 40 mg Mirtazapine (Remeron -) 15 mg PO HS [facility] Oxycodone HCl (Roxicodone -) 10 mg PO Q6H PRN PRN Reason: PAIN > 6 Last Admin: 01/17/18 06:44 Dose: 10 mg Tiotropium [place] (Spiriva Respimat) 2 puff IH DAILY [facility] - Objective Vital Signs: Vital Signs Temperature 98.3 F 01/17/18 06:00 Pulse Rate 79 01/17/18 06:00 Respiratory Rate 20 01/17/18 06:00 Blood Pressure 112/70 01/17/18 06:00 O2 Sat by Pulse Oximetry (%) 96 01/16/18 21:00 Constitutional: Yes: Calm, Thin Eyes: Yes: WNL HENT: Yes: WNL Neck: Yes: WNL Cardiovascular: Yes: Regular Rate and Rhythm, S1, S2 Respiratory: Yes: Diminished Gastrointestinal: Yes: Normal Bowel Sounds, Soft Extremities: Yes: WNL, Internal Rotation Edema: No Labs: CBC, BMP 01/17/18 05:30 01/17/18 05:30 INR, PTT INR 1.00 (0.83-1.09) 01/17/18 05:30 Problem List - Problems (1) Acute on chronic respiratory failure with hypoxia and hypercapnia Code(s): J96.21 - ACUTE AND CHRONIC RESPIRATORY FAILURE WITH HYPOXIA; J96.22 - ACUTE AND CHRONIC RESPIRATORY FAILURE WITH HYPERCAPNIA (2) CHF exacerbation Code(s): I50.9 - HEART FAILURE, UNSPECIFIED Qualifiers: Heart failure type: systolic Qualified Code(s): I50.23 - Acute on chronic systolic (congestive) heart failure (3) COPD exacerbation Code(s): J44.1 - CHRONIC OBSTRUCTIVE PULMONARY DISEASE W (ACUTE) EXACERBATION (4) ASHD (arteriosclerotic heart disease) Code(s): I25.10 - ATHSCL HEART DISEASE OF [place] CORONARY ARTERY W/O ANG PCTRS (5) Acute on chronic renal failure Code(s): N17.9 - ACUTE KIDNEY FAILURE, UNSPECIFIED; N18.9 - CHRONIC KIDNEY DISEASE, UNSPECIFIED Qualifiers: Acute renal failure type: unspecified Chronic kidney disease stage: unspecified stage Qualified Code(s): N17.9 - Acute kidney failure, unspecified (6) Troponin I above reference range Code(s): R74.8 - ABNORMAL LEVELS OF OTHER SERUM ENZYMES (7) HTN (hypertension) Code(s): I10 - ESSENTIAL (PRIMARY) HYPERTENSION Qualifiers: Hypertension type: essential hypertension Qualified Code(s): I10 - Essential (primary) hypertension (8) Lung cancer Code(s): C34.90 - MALIGNANT NEOPLASM OF UNSP PART OF UNSP BRONCHUS OR LUNG Qualifiers: Lung location: unspecified part of lung (9) S/P coronary artery stent placement Code(s): Z95.5 - PRESENCE OF CORONARY ANGIOPLASTY IMPLANT AND GRAFT Assessment/Plan IMP ACUTE ON CHRONIC HYPOXEMIC RESPIRATORY FAILURE IMPROVED ACUTE ON CHRONIC CHF COPD ASHD S/P STENT + TROPONIN H/O LUNG CA NON-SMALL CA S/P CHEMO PAF S/P BALLOON VALVULOPLASTY ACUTE ON CHRONIC KIDNEY DISEASE H/O BREAST CA PLAN LASIX STEROID TAPER O2 INHALED BRONCHODILATORS STRICT I+O MONITOR HAWK ALVAREZ Problem List - Problems (1) Acute on chronic respiratory failure with hypoxia and hypercapnia Code(s): J96.21 - ACUTE AND CHRONIC RESPIRATORY FAILURE WITH HYPOXIA; J96.22 - ACUTE AND CHRONIC RESPIRATORY FAILURE WITH HYPERCAPNIA (2) CHF exacerbation Code(s): I50.9 - HEART FAILURE, UNSPECIFIED Qualifiers: Heart failure type: systolic Qualified Code(s): I50.23 - Acute on chronic systolic (congestive) heart failure (3) COPD exacerbation Code(s): J44.1 - CHRONIC OBSTRUCTIVE PULMONARY DISEASE W (ACUTE) EXACERBATION (4) ASHD (arteriosclerotic heart disease) Code(s): I25.10 - ATHSCL HEART DISEASE OF [place] CORONARY ARTERY W/O ANG PCTRS (5) Acute on chronic renal failure Code(s): N17.9 - ACUTE KIDNEY FAILURE, UNSPECIFIED; N18.9 - CHRONIC KIDNEY DISEASE, UNSPECIFIED Qualifiers: Acute renal failure type: unspecified Chronic kidney disease stage: unspecified stage Qualified Code(s): N17.9 - Acute kidney failure, unspecified (6) Troponin I above reference range Code(s): R74.8 - ABNORMAL LEVELS OF OTHER SERUM ENZYMES (7) HTN (hypertension) Code(s): I10 - ESSENTIAL (PRIMARY) HYPERTENSION Qualifiers: Hypertension type: essential hypertension Qualified Code(s): I10 - Essential (primary) hypertension (8) Lung cancer Code(s): C34.90 - MALIGNANT NEOPLASM OF UNSP PART OF UNSP BRONCHUS OR LUNG Qualifiers: Lung location: unspecified part of lung (9) S/P coronary artery stent placement Code(s): Z95.5 - PRESENCE OF CORONARY ANGIOPLASTY IMPLANT AND GRAFT
--- NOTE | 2018-01-17 14:05 | PN ---
Progress Note, Physician Chief Complaint: less sob tele neg History of Present Illness: 77year-old woman with a PMHx of CAD, s/p PCI/stenting in the distant past, paroxysmal atrial fibrillation, COPD (3L O2), lung cancer (remission), breast cancer (8 years ago), CKD stage 5, aortic stenosis s/p balloon valvuloplasty at [facility] 12/27/[address] Dion Mane (cath showed CAD and patent stents by report of the patients ), recently treated for pneumonia, COPD and CHF exacerbation, now presents with several days worsening SOB, cough, sputum without chest pain. Found with CHF, elevated troponin (0.3) and BNP, creat 2.9. Echocardiogram 06/23/2017 showed significant segmental wall motion abnormalities with moderate LV systolic dysfunction. LVEF 35-40%. Moderate RV dysfunction. Moderate to severe and mild AI. Workup at [facility] (per Dr Gloria Kearney-partner of Dr Mane) showed patent stents , EF 25-30. Repeat echo 01/16/18 - Current Medication List Current Medications: Active Medications Acetaminophen (Tylenol -) 650 mg PO Q6H PRN PRN Reason: Fever Or Pain Last Admin: 01/17/18 06:45 Dose: 650 mg Aspirin (Asa -) 81 mg PO DAILY [facility] Last Admin: 01/17/18 09:33 Dose: 81 mg Atorvastatin Calcium (Lipitor -) 40 mg PO HS [facility] Last Admin: 01/16/18 21:55 Dose: 40 mg Budesonide/Formoterol Fumarate (Symbicort 160/4.5mcg -) 2 puff IH DAILY@0800 [facility] Last Admin: 01/17/18 09:34 Dose: 2 inh Furosemide (Lasix Injection -) 80 mg IVPUSH BID [facility] Last Admin: 01/17/18 09:33 Dose: 80 mg Heparin Sodium (Porcine) (Heparin -) 5,000 unit SQ BID [facility] Last Admin: 01/17/18 09:33 Dose: 5,000 unit Ceftriaxone Sodium 1 gm/ (Dextrose) 50 mls @ 100 mls/hr IVPB DAILY [facility]; Protocol Levothyroxine Sodium (Synthroid -) 50 mcg PO AM [facility] Last Admin: 01/17/18 06:44 Dose: 50 mcg Methylprednisolone Sodium Succinate (Solu-Medrol -) 40 mg IVPUSH Q6H-IV [facility] Last Admin: 01/17/18 09:33 Dose: 40 mg Mirtazapine (Remeron -) 15 mg PO HS [facility] Oxycodone HCl (Roxicodone -) 10 mg PO Q6H PRN PRN Reason: PAIN > 6 Last Admin: 01/17/18 06:44 Dose: 10 mg Tiotropium [place] (Spiriva Respimat) 2 puff IH DAILY [facility] - Objective Vital Signs: Vital Signs Temperature 98.3 F 01/17/18 06:00 Pulse Rate 79 01/17/18 06:00 Respiratory Rate 20 01/17/18 09:00 Blood Pressure 112/70 01/17/18 06:00 O2 Sat by Pulse Oximetry (%) 96 01/17/18 09:00 Constitutional: Yes: No Distress, Calm Eyes: Yes: Conjunctiva Clear, EOM Intact HENT: Yes: Atraumatic, Normocephalic Neck: Yes: Trachea Midline Cardiovascular: Yes: Regular Rate and Rhythm, Murmur (2/6 tony rusb), S1, S2 Respiratory: Yes: Rales (bilat bases) Gastrointestinal: Yes: Normal Bowel Sounds, Soft Extremities: Yes: WNL Edema: No Labs: CBC, BMP 01/17/18 05:30 01/17/18 05:30 INR, PTT INR 1.00 (0.83-1.09) 01/17/18 05:30 Assessment/Plan 77year-old woman with a PMHx of CAD, s/p PCI/stenting in the distant past, paroxysmal atrial fibrillation, COPD (3L O2), lung cancer (remission), breast cancer (8 years ago), CKD stage 5, aortic stenosis s/p balloon valvuloplasty at [facility] 12/27/[address] Dion Mane (cath showed CAD and patent stents by report of the patients ), recently treated for pneumonia, COPD and CHF exacerbation, now presents with several days worsening SOB, cough, sputum without chest pain. Found with CHF, elevated troponin (0.3) and BNP, creat 2.9. Echocardiogram 06/23/2017 showed significant segmental wall motion abnormalities with moderate LV systolic dysfunction. LVEF 35-40%. Moderate RV dysfunction. Moderate to severe and mild AI. Workup at [facility] (per Dr Gloria Kearney-partner of Dr Mane) showed patent stents , EF 25-30. echo 01/16/18 EF 30 severe . 1. CHF--acute on chronic systolic chf, possibly triggered by worsening renal disease and hypoxia from COPD. -needs IV lasix 80 bid for diuresis. -daily wts, fluid and salt restriction. -consider renal eval for GFR < 15, pulm eval for COPD. 2. PAF--she is in nsr at present. -no change in RX. 3. Elevated troponin -known history of CAD and stenting, with reduced EF and WMA but worsening creatinine precludes ischemia eval at this point, and recent cardiac cath at [facility] showed no need for PCI. -elevated troponin may be due to renal disease rather than MN. -repeat echo severe decreased EF no change. 4. Nonrheumatic Aortic Stenosis -repeat echo shows severe , will ultimately need TAVR. -recent BVP, will ultimately need TAVR when renal issues are stable.
--- NOTE | 2018-01-17 14:48 | CONSULT ---
Consult - text type - Consultation Consultation Note: Renal consult for CKD This is a 77 year old woman with PMHx of CKD stage 4/5 without proteinuira, COPD on O2, CHF, CAD, PVD, Lung Ca s/p Chemo and radiation, Breast Ca who presented with SOB/PERKINS and admitted for COPD/CHF exacerbation and found to have eGFR of 14. Pt was seen by me as an outpatient last week and Cr was 3.18 and eGFR was 14 at that time. Cr was lower in september. Pt is on Lasix and kayexlate as an outpatient. Pt reports feeling better and SOB is back at baseline now. No fever or chills, abd pain, N/V/D. Making urine. Leg edmea has improved. Denies any flank pain, hematuira, dysuira, nsaid use, or recent contrast exposure. PMhx: As above Allergies NKDA Family Hx: [place] Social Hx: Former smoker ROS: as per HPI Home Medications Medication Instructions Recorded Carvedilol [Coreg -] 3.125 mg PO BID 12/18/16 Levothyroxine [Synthroid -] 0.5 tab PO DAILY 12/18/16 Multivitamin [Daily Multiple 1 each PO DAILY 06/22/17 Vitamin] Mirtazapine [Remeron -] 15 mg PO HS #30 tablet 06/27/17 Citalopram Hydrobromide 40 mg PO DAILY 10/13/17 [Citalopram HBr] Furosemide [Lasix] 80 mg PO DAILY 10/13/17 Magnesium Oxide [Mag-Ox -] 400 mg PO BID 10/13/17 Prednisone 10 mg PO BID 10/13/17 Alprazolam [Xanax] 0.125 mg PO DAILY PRN 01/16/18 Aspirin 81 mg PO DAILY 01/16/18 Atorvastatin Ca [Lipitor] 40 mg PO DAILY 01/16/18 Budesonide/Formeterol Fumarate 1 inh PO BID 01/16/18 [SYMBICORT 160/4.5mcg -] Oxycodone HCl/Acetaminophen 1 - 2 tab PO Q6H PRN 01/16/18 [Percocet 5-325 mg Tablet] Sodium Polystyrene Sulfonate 30 gm PO DAILY PRN 01/16/18 [Kayexalate] Tiotropium [place] [Spiriva 4 gm IH DAILY 11/20/18 Respimat] Vital Signs Temperature 98 F 01/17/18 14:26 Pulse Rate 94 H 01/17/18 14:26 Respiratory Rate 18 01/17/18 14:26 Blood Pressure 113/73 01/17/18 14:26 O2 Sat by Pulse Oximetry (%) 96 01/17/18 09:00 Intake & Output 01/14/18 01/15/18 01/16/18 01/17/18 23:59 23:59 23:59 23:59 Intake Total 360 Balance 360 Weight 49.442 kg 47.627 kg NAD on NC O2 Neck supple, No JVD MMM RRR, No M/R Dec BS, no rales or wheeze soft NT/ND No LE edema CBC, BMP 01/17/18 05:30 01/17/18 05:30 Laboratory Tests 01/17/18 05:30 Calcium 9.2 Phosphorus 6.0 H Magnesium 3.6 H Albumin 2.6 L Current Medications Acetaminophen (Tylenol -) 650 mg PO Q6H PRN PRN Reason: Fever Or Pain Last Admin: 01/17/18 06:45 Dose: 650 mg Aspirin (Asa -) 81 mg PO DAILY [facility] Last Admin: 01/17/18 09:33 Dose: 81 mg Atorvastatin Calcium (Lipitor -) 40 mg PO HS [facility] Last Admin: 01/16/18 21:55 Dose: 40 mg Budesonide/Formoterol Fumarate (Symbicort 160/4.5mcg -) 2 puff IH DAILY@0800 [facility] Last Admin: 01/17/18 09:34 Dose: 2 inh Furosemide (Lasix Injection -) 80 mg IVPUSH BID [facility] Last Admin: 01/17/18 09:33 Dose: 80 mg Heparin Sodium (Porcine) (Heparin -) 5,000 unit SQ BID [facility] Last Admin: 01/17/18 09:33 Dose: 5,000 unit Ceftriaxone Sodium 1 gm/ (Dextrose) 50 mls @ 100 mls/hr IVPB DAILY [facility]; Protocol Levothyroxine Sodium (Synthroid -) 50 mcg PO AM [facility] Last Admin: 01/17/18 06:44 Dose: 50 mcg Methylprednisolone Sodium Succinate (Solu-Medrol -) 40 mg IVPUSH Q6H-IV [facility] Last Admin: 01/17/18 09:33 Dose: 40 mg Mirtazapine (Remeron -) 15 mg PO HS [facility] Oxycodone HCl (Roxicodone -) 10 mg PO Q6H PRN PRN Reason: PAIN > 6 Last Admin: 01/17/18 06:44 Dose: 10 mg Tiotropium [place] (Spiriva Respimat) 2 puff IH DAILY [facility] 77 year old woman with PMHx of CKD stage 4/5 without proteinuira, COPD on O2, CHF, CAD, PVD, Lung Ca s/p Chemo and radiation, Breast Ca who presented with SOB /PERKINS and admitted for COPD/CHF exacerbation and found to have eGFR of 14. 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 #CHF exacerbation #COPD exacerbation #Hypertension #CAD #Anemia Renal function stable at this time no acute indication for JOURNAL CLERK given no overt urmeia, acidosis or volume overload refractory do diuretics volume status is improved at this time, continue Lasix (may need to titrate down as no edema seen now and CXR with improvement in congestion) pt may benefit from twice daily dose of lasix at home or conversion to torsemide BUN high likely due to steroids and not direct reflection or uremia pt will need dialysis planning but can be done as an outpatient check iron profile, may need CLIF if Hgb remains < 10 Trend renal function and electrolytes avoid nephrotoxins no PREETI/ARB given low eGFR Thank you Will follow Eric Mendoza DO
[2018-01-17] MEDS ORDERED: cefTRIAXone SODIUM 1 GM VIAL ONE (15:21)
[2018-01-17] MEDS ORDERED: DEXTROSE 5%-WATER - 50 ML IVPB ONE (15:22)
[2018-01-17] MEDS: CEFTRIAXONE 1 GM in DEXTROSE 5%-WATER - 50 ML IVPB SCH (15:41)
[2018-01-17] MEDS: ATORVASTATIN CA 40 MG TABLET (FP) PO SCH (21:26)
[2018-01-17] MEDS ORDERED: MIRTAZAPINE 15 MG TABLET (FP) PO SCH (22:00)
[2018-01-17 23:50] VITALS: BMI 17.4
[2018-01-18] MEDS: methylPREDNISolone NA SUCC 40 MG/1 ML VIAL IVPUSH SCH ×2 (03:08→12:31)
[2018-01-18] MEDS: LEVOTHYROXINE NA 50 MCG TABLET (FP) PO SCH (06:25)
--- NOTE | 2018-01-18 07:46 | PN ---
Progress Note (short form) - Note Progress Note: Renal follow up for CKD Pt seen and examined at the bedside no acute complaints slept well, no PND or orthopnea making dennis feels like her breathing is at her baseline Vital Signs Temperature 98.1 F 01/18/18 02:00 Pulse Rate 87 01/18/18 06:00 Respiratory Rate 18 01/18/18 06:00 Blood Pressure 134/84 01/18/18 06:00 O2 Sat by Pulse Oximetry (%) 97 01/17/18 21:00 Intake & Output 01/15/18 01/16/18 01/17/18 01/18/18 23:59 23:59 23:59 23:59 Intake Total 360 400 Balance 360 400 Weight 49.442 kg 47.627 kg NAD CTA, no rales, DEC throughout the lungs no LE edema CBC, BMP 01/17/18 05:30 01/17/18 05:30 Current Medications Acetaminophen (Tylenol -) 650 mg PO Q6H PRN PRN Reason: Fever Or Pain Last Admin: 01/17/18 06:45 Dose: 650 mg Aspirin (Asa -) 81 mg PO DAILY [facility] Last Admin: 01/17/18 09:33 Dose: 81 mg Atorvastatin [place] (Lipitor -) 40 mg PO HS [facility] Last Admin: 01/17/18 21:26 Dose: 40 mg Budesonide/Formoterol Fumarate (Symbicort 160/4.5mcg -) 2 puff IH DAILY@0800 [facility] Last Admin: 01/17/18 09:34 Dose: 2 inh Furosemide (Lasix Injection -) 80 mg IVPUSH BID [facility] Last Admin: 01/17/18 21:24 Dose: 80 mg Heparin Sodium (Porcine) (Heparin -) 5,000 unit SQ BID [facility] Last Admin: 01/17/18 21:23 Dose: 5,000 unit Ceftriaxone Sodium 1 gm/ (Dextrose) 50 mls @ 100 mls/hr IVPB DAILY [facility]; Protocol Last Admin: 01/17/18 15:41 Dose: 100 mls/hr Levothyroxine Sodium (Synthroid -) 50 mcg PO AM [facility] Last Admin: 01/18/18 06:25 Dose: 50 mcg Methylprednisolone Sodium Succinate (Solu-Medrol -) 40 mg IVPUSH Q6H-IV [facility] Last Admin: 01/18/18 03:08 Dose: 40 mg Mirtazapine (Remeron -) 15 mg PO HS [facility] Last Admin: 01/17/18 21:26 Dose: 15 mg Oxycodone HCl (Roxicodone -) 10 mg PO Q6H PRN PRN Reason: PAIN > 6 Last Admin: 01/17/18 21:11 Dose: 10 mg Tiotropium [place] (Spiriva Respimat) 2 puff IH DAILY [facility] 77 year old woman with PMHx of CKD stage 4/5 without proteinuira, COPD on O2, CHF, CAD, PVD, Lung Ca s/p Chemo and radiation, Breast Ca who presented with SOB /PERKINS and admitted for COPD/CHF exacerbation and found to have eGFR of 14. 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
[2018-01-18] MEDS: oxyCODONE HCL 5 MG TABLET PO PRN (08:10)
[2018-01-18 09:26] LABS: ALBUMIN 2.8 g/dl (3.4-5.0); ANION GAP 13 MMOL/L (8-16); BILIRUBIN,TOTAL 0.3 mg/dL (0.2-1); CALCIUM 8.1 mg/dL (8.5-10.1); CHLORIDE 80 mmol/L (98-107); CO2 37 mmol/L (21-32); CREATININE 3.6 mg/dL (0.55-1.3); GLUCOSE,RANDOM 168 mg/dL (74-106); POTASSIUM 3.6 mmol/L (3.5-5.1); SODIUM 130 mmol/L (136-145); TOT PROT 6.8 g/dl (6.4-8.2)
[2018-01-18 09:27] LABS: ALK PHOS 72 U/L (45-117); SGOT/AST 27 U/L (15-37); SGPT/ALT 19 U/L (13-61)
[2018-01-18 09:31] LABS: BLOOD UREA NITROGEN 112 mg/dL (7-18)
--- NOTE | 2018-01-18 10:00 | PN ---
Progress Note, Physician History of Present Illness: PULMONARY ALERT,FEELING BETTER,DYSPNEA IMPROVED,-CP - Current Medication List Current Medications: Active Medications Acetaminophen (Tylenol -) 650 mg PO Q6H PRN PRN Reason: Fever Or Pain Last Admin: 01/17/18 06:45 Dose: 650 mg Aspirin (Asa -) 81 mg PO DAILY [facility] Last Admin: 01/17/18 09:33 Dose: 81 mg Atorvastatin [place] (Lipitor -) 40 mg PO HS [facility] Last Admin: 01/17/18 21:26 Dose: 40 mg Budesonide/Formoterol Fumarate (Symbicort 160/4.5mcg -) 2 puff IH DAILY@0800 [facility] Last Admin: 01/17/18 09:34 Dose: 2 inh Furosemide (Lasix Injection -) 80 mg IVPUSH BID [facility] Last Admin: 01/17/18 21:24 Dose: 80 mg Heparin Sodium (Porcine) (Heparin -) 5,000 unit SQ BID [facility] Last Admin: 01/17/18 21:23 Dose: 5,000 unit Ceftriaxone Sodium 1 gm/ (Dextrose) 50 mls @ 100 mls/hr IVPB DAILY [facility]; Protocol Last Admin: 01/17/18 15:41 Dose: 100 mls/hr Levothyroxine Sodium (Synthroid -) 50 mcg PO AM [facility] Last Admin: 01/18/18 06:25 Dose: 50 mcg Methylprednisolone Sodium Succinate (Solu-Medrol -) 40 mg IVPUSH Q6H-IV [facility] Last Admin: 01/18/18 03:08 Dose: 40 mg Mirtazapine (Remeron -) 15 mg PO HS [facility] Last Admin: 01/17/18 21:26 Dose: 15 mg Oxycodone HCl (Roxicodone -) 10 mg PO Q6H PRN PRN Reason: PAIN > 6 Last Admin: 01/18/18 08:10 Dose: 10 mg Tiotropium [place] (Spiriva Respimat) 2 puff IH DAILY [facility] - Objective Vital Signs: Vital Signs Temperature 98.1 F 01/18/18 02:00 Pulse Rate 78 01/18/18 09:38 Respiratory Rate 18 01/18/18 09:38 Blood Pressure 143/68 01/18/18 09:38 O2 Sat by Pulse Oximetry (%) 94 L 01/18/18 09:00 Constitutional: Yes: Well Nourished, Calm Eyes: Yes: WNL HENT: Yes: WNL Neck: Yes: WNL Cardiovascular: Yes: Regular Rate and Rhythm, S1, S2 Respiratory: Yes: Rales (FEW BIBASILAR CRACKLES) Gastrointestinal: Yes: Normal Bowel Sounds, Soft Extremities: Yes: WNL Edema: No Labs: CBC, BMP 01/17/18 05:30 01/18/18 08:35 INR, PTT INR 1.00 (0.83-1.09) 01/17/18 05:30 Problem List - Problems (1) Acute on chronic respiratory failure with hypoxia and hypercapnia Code(s): J96.21 - ACUTE AND CHRONIC RESPIRATORY FAILURE WITH HYPOXIA; J96.22 - ACUTE AND CHRONIC RESPIRATORY FAILURE WITH HYPERCAPNIA (2) CHF exacerbation Code(s): I50.9 - HEART FAILURE, UNSPECIFIED Qualifiers: Heart failure type: systolic Qualified Code(s): I50.23 - Acute on chronic systolic (congestive) heart failure (3) COPD exacerbation Code(s): J44.1 - CHRONIC OBSTRUCTIVE PULMONARY DISEASE W (ACUTE) EXACERBATION (4) ASHD (arteriosclerotic heart disease) Code(s): I25.10 - ATHSCL HEART DISEASE OF [place] CORONARY ARTERY W/O ANG PCTRS (5) Acute on chronic renal failure Code(s): N17.9 - ACUTE KIDNEY FAILURE, UNSPECIFIED; N18.9 - CHRONIC KIDNEY DISEASE, UNSPECIFIED Qualifiers: Acute renal failure type: unspecified Chronic kidney disease stage: unspecified stage Qualified Code(s): N17.9 - Acute kidney failure, unspecified (6) Troponin I above reference range Code(s): R74.8 - ABNORMAL LEVELS OF OTHER SERUM ENZYMES (7) HTN (hypertension) Code(s): I10 - ESSENTIAL (PRIMARY) HYPERTENSION Qualifiers: Hypertension type: essential hypertension Qualified Code(s): I10 - Essential (primary) hypertension (8) Lung cancer Code(s): C34.90 - MALIGNANT NEOPLASM OF UNSP PART OF UNSP BRONCHUS OR LUNG Qualifiers: Lung location: unspecified part of lung (9) S/P coronary artery stent placement Code(s): Z95.5 - PRESENCE OF CORONARY ANGIOPLASTY IMPLANT AND GRAFT Assessment/Plan IMP ACUTE ON CHRONIC HYPOXEMIC RESPIRATORY FAILURE IMPROVED ACUTE ON CHRONIC CHF COPD ASHD S/P STENT + TROPONIN H/O LUNG CA NON-SMALL CA S/P CHEMO PAF S/P BALLOON VALVULOPLASTY ACUTE ON CHRONIC KIDNEY DISEASE H/O BREAST CA PLAN LASIX PER CARDIOLOGY STEROID TAPER O2 INHALED BRONCHODILATORS STRICT I+O MONITOR HAWK ALVAREZ Problem List - Problems (1) Acute on chronic respiratory failure with hypoxia and hypercapnia Code(s): J96.21 - ACUTE AND CHRONIC RESPIRATORY FAILURE WITH HYPOXIA; J96.22 - ACUTE AND CHRONIC RESPIRATORY FAILURE WITH HYPERCAPNIA (2) CHF exacerbation Code(s): I50.9 - HEART FAILURE, UNSPECIFIED Qualifiers: Heart failure type: systolic Qualified Code(s): I50.23 - Acute on chronic systolic (congestive) heart failure (3) COPD exacerbation Code(s): J44.1 - CHRONIC OBSTRUCTIVE PULMONARY DISEASE W (ACUTE) EXACERBATION (4) ASHD (arteriosclerotic heart disease) Code(s): I25.10 - ATHSCL HEART DISEASE OF [place] CORONARY ARTERY W/O ANG PCTRS (5) Acute on chronic renal failure Code(s): N17.9 - ACUTE KIDNEY FAILURE, UNSPECIFIED; N18.9 - CHRONIC KIDNEY DISEASE, UNSPECIFIED Qualifiers: Acute renal failure type: unspecified Chronic kidney disease stage: unspecified stage Qualified Code(s): N17.9 - Acute kidney failure, unspecified (6) Troponin I above reference range Code(s): R74.8 - ABNORMAL LEVELS OF OTHER SERUM ENZYMES (7) HTN (hypertension) Code(s): I10 - ESSENTIAL (PRIMARY) HYPERTENSION Qualifiers: Hypertension type: essential hypertension Qualified Code(s): I10 - Essential (primary) hypertension (8) Lung cancer Code(s): C34.90 - MALIGNANT NEOPLASM OF UNSP PART OF UNSP BRONCHUS OR LUNG Qualifiers: Lung location: unspecified part of lung (9) S/P coronary artery stent placement Code(s): Z95.5 - PRESENCE OF CORONARY ANGIOPLASTY IMPLANT AND GRAFT
[2018-01-18] MEDS ORDERED: cefTRIAXone SODIUM 1 GM VIAL ONE (11:36)
[2018-01-18] MEDS ORDERED: DEXTROSE 5%-WATER - 50 ML IVPB ONE (11:36)
[2018-01-18] MEDS ORDERED: PT OWN MED DRAWER 7, Y5N ONE (11:36)
[2018-01-18] MEDS: HEPARIN NA (PORCINE) 5,000 UNITS/ML 1ML VIAL SQ SCH (12:31)
[2018-01-18] MEDS: CEFTRIAXONE 1 GM in DEXTROSE 5%-WATER - 50 ML IVPB SCH (12:31)
[2018-01-18] MEDS: BUDESONIDE/FORMETEROL FUMARATE 160/4.5 mcg INHALER IH SCH (12:31)
[2018-01-18] MEDS: ASPIRIN 81 MG CHEWABLE TABLETS PO SCH (12:31)
--- NOTE | 2018-01-18 12:48 | DS ---
Physical Examination Vital Signs: Vital Signs Temperature 98.1 F 01/18/18 02:00 Pulse Rate 78 01/18/18 09:38 Respiratory Rate 18 01/18/18 09:38 Blood Pressure 143/68 01/18/18 09:38 O2 Sat by Pulse Oximetry (%) 94 L 01/18/18 09:00 Labs: CBC, BMP 01/17/18 05:30 01/18/18 08:35 Discharge Summary Reason For Visit: ACUTE ON CHRONIC CHF, ACUTE RESP FAILURE HYPOXEMIA Current Active Problems Acute on chronic respiratory failure with hypoxia and hypercapnia (Acute) CHF exacerbation (Acute) COPD exacerbation (Acute) Troponin I above reference range (Acute) Condition: Fair - Instructions Referrals: Isaiah Thompson MD [Primary Care Provider] - 1 Week - Home Medications Comprehensive Discharge Medication List: Ambulatory Orders Carvedilol [Coreg -] 3.125 mg PO BID 12/18/16 Levothyroxine [Synthroid -] 0.5 tab PO DAILY 12/18/16 Multivitamin [Daily Multiple Vitamin] 1 each PO DAILY 06/22/17 Mirtazapine [Remeron -] 15 mg PO HS #30 tablet 06/27/17 Citalopram Hydrobromide [Citalopram HBr] 40 mg PO DAILY 10/13/17 Furosemide [Lasix] 80 mg PO DAILY 10/13/17 Magnesium Oxide [Mag-Ox -] 400 mg PO BID 10/13/17 Prednisone 10 mg PO BID 10/13/17 Alprazolam [Xanax] 0.125 mg PO DAILY PRN 01/16/18 Aspirin 81 mg PO DAILY 01/16/18 Atorvastatin Ca [Lipitor] 40 mg PO DAILY 01/16/18 Budesonide/Formeterol Fumarate [SYMBICORT 160/4.5mcg -] 1 inh PO BID 01/16/18 Oxycodone HCl/Acetaminophen [Percocet 5-325 mg Tablet] 1 - 2 tab PO Q6H PRN Sodium Polystyrene Sulfonate [Kayexalate -] 30 gm PO DAILY PRN 01/16/18 Tiotropium [place] [Spiriva Respimat] 4 gm IH DAILY 01/16/18
[2018-01-18 14:21] VITALS: BP 115/72; PULSE 86; TEMP 98.2
--- NOTE | 2018-01-18 14:53 | PN ---
Progress Note, Physician History of Present Illness: seen and examined today in nad. pt states she feels well and wants to go home. denies sob. states her wheezing is at baseline. - Current Medication List Current Medications: Active Medications Acetaminophen (Tylenol -) 650 mg PO Q6H PRN PRN Reason: Fever Or Pain Last Admin: 01/17/18 06:45 Dose: 650 mg Aspirin (Asa -) 81 mg PO DAILY NURIS Last Admin: 01/18/18 12:31 Dose: 81 mg Atorvastatin Calcium (Lipitor -) 40 mg PO HS NURIS Last Admin: 01/17/18 21:26 Dose: 40 mg Budesonide/Formoterol Fumarate (Symbicort 160/4.5mcg -) 2 puff IH DAILY@0800 NURIS Last Admin: 01/18/18 12:31 Dose: 2 inh Furosemide (Lasix -) 80 mg PO DAILY NURIS Heparin Sodium (Porcine) (Heparin -) 5,000 unit SQ BID NURIS Last Admin: 01/18/18 12:31 Dose: 5,000 unit Ceftriaxone Sodium 1 gm/ (Dextrose) 50 mls @ 100 mls/hr IVPB DAILY NURIS; Protocol Last Admin: 01/18/18 12:31 Dose: 100 mls/hr Levothyroxine Sodium (Synthroid -) 50 mcg PO AM NURIS Last Admin: 01/18/18 06:25 Dose: 50 mcg Methylprednisolone Sodium Succinate (Solu-Medrol -) 40 mg IVPUSH Q6H-IV NURIS Last Admin: 01/18/18 12:31 Dose: 40 mg Mirtazapine (Remeron -) 15 mg PO HS NURIS Last Admin: 01/17/18 21:26 Dose: 15 mg Oxycodone HCl (Roxicodone -) 10 mg PO Q6H PRN PRN Reason: PAIN > 6 Last Admin: 01/18/18 08:10 Dose: 10 mg Tiotropium [place] (Spiriva Respimat) 2 puff IH DAILY NURIS Last Admin: 01/18/18 12:31 Dose: 2 puff - Objective Vital Signs: Vital Signs Temperature 98.2 F 01/18/18 14:20 Pulse Rate 86 01/18/18 14:20 Respiratory Rate 18 01/18/18 14:20 Blood Pressure 115/72 01/18/18 14:20 O2 Sat by Pulse Oximetry (%) 94 L 01/18/18 09:00 Constitutional: Yes: No Distress, Calm Eyes: Yes: Conjunctiva Clear, EOM Intact, PERRL HENT: Yes: Atraumatic, Normocephalic Neck: Yes: Supple, Trachea Midline Cardiovascular: Yes: Regular Rate and Rhythm, Murmur, S1. No: Bradycardia, Tachycardia, Pulse Irregular, Bruit, JVD, Gallop, Rub, S2, S3, S4, Varicosities Respiratory: Yes: Regular, On Nasal O2, Wheezes. No: Rales, Rhonchi, SOB Gastrointestinal: Yes: Normal Bowel Sounds, Soft, Distention, Tenderness Extremities: Yes: WNL Edema: No Peripheral Pulses WNL: Yes Peripheral Pulses: Left Doralis Pedis: 2+, Right Dorsalis Pedis: 2+ Neurological: Yes: Alert, Oriented Psychiatric: Yes: Alert, Oriented Labs: CBC, BMP 01/17/18 05:30 01/18/18 08:35 INR, PTT INR 1.00 (0.83-1.09) 01/17/18 05:30 - ....Imaging Chest X-ray: Report Reviewed, Image Reviewed EKG: Report Reviewed, Image Reviewed Other: Report Reviewed, Image Reviewed ([id number] pvcs) Assessment/Plan 77year-old woman with a PMHx of CAD, s/p PCI/stenting in the distant past, paroxysmal atrial fibrillation, COPD (3L O2), lung cancer (remission), breast cancer (8 years ago), CKD stage 5, aortic stenosis s/p balloon valvuloplasty at [facility] 12/27/[address] Dion Mane (cath showed CAD and patent stents by report of the patients ), recently treated for pneumonia, COPD and CHF exacerbation, now presents with several days worsening SOB, cough, sputum without chest pain. Found with CHF, elevated troponin (0.3) and BNP, creat 2.9. Echocardiogram 06/23/2017 showed significant segmental wall motion abnormalities with moderate LV systolic dysfunction. LVEF 35-40%. Moderate RV dysfunction. Moderate to severe and mild AI. Workup at [facility] (per Dr Gloria Kearney-partner of Dr Mane) showed patent stents , EF 25-30. echo 01/16/18 EF 30 severe . 1. CHF--acute on chronic systolic chf, possibly triggered by worsening renal disease and hypoxia from COPD. -euvolemic -change to po lasix -daily wts, fluid and salt restriction. -not on bblocker due to copd and not on PREETI-I/arb due to CKD -close outpatient fup with her ships equipment engineer 2. PAF--she is in nsr at present. -no change in RX. -outpatient fup 3. Elevated troponin -known history of CAD and stenting, with reduced EF and WMA but worsening creatinine precludes ischemia eval at this point, and recent cardiac cath at [facility] showed no need for PCI. -elevated troponin may be due to renal disease rather than LA. -repeat echo severe decreased EF no change. -close outpatient fup 4. Nonrheumatic Aortic Stenosis -repeat echo shows severe -recent BVP, will ultimately need TAVR when renal issues are stable. -close outpatient fup with her ships equipment engineer Pt is acceptable for discharge from a cardiac standpoint. Please call with any additional questions.
[2018-01-19] MEDS ORDERED: FUROSEMIDE 40 MG TABLET (FP) PO SCH (10:00)
--- NOTE | 2018-01-24 17:08 | PN ---
Progress Note (short form) - Note Progress Note: ADDENDUM DIAGNOSIS: SEVERE MALNUTRITION
== END 2018-01-18 15:02 | disposition home or self-care (01) | DRG 291 ==
LOC: JER 04:48 → JERBED 10:16 → J4W 14:14
PROVIDERS: ADMIT Family Medicine; ATTEND Family Medicine
DX: I13.2 Hypertensive heart and chronic kidney disease with heart failure and with stage 5 chronic kidney disease, or end stage renal disease (principal); J96.21 Acute and chronic respiratory failure with hypoxia; J96.22 Acute and chronic respiratory failure with hypercapnia; I50.23 Acute on chronic systolic (congestive) heart failure; E43 Unspecified severe protein-calorie malnutrition; J44.1 Chronic obstructive pulmonary disease with (acute) exacerbation; N17.9 Acute kidney failure, unspecified; N18.5 Chronic kidney disease, stage 5; C34.90 Malignant neoplasm of unspecified part of unspecified bronchus or lung; Z68.1 Body mass index [BMI] 19.9 or less, adult; I25.10 Atherosclerotic heart disease of native coronary artery without angina pectoris; E78.5 Hyperlipidemia, unspecified; I27.20 Pulmonary hypertension, unspecified; I34.0 Nonrheumatic mitral (valve) insufficiency; J44.9 Chronic obstructive pulmonary disease, unspecified; E03.9 Hypothyroidism, unspecified; M54.5 Low back pain; E04.2 Nontoxic multinodular goiter; D64.9 Anemia, unspecified; D72.829 Elevated white blood cell count, unspecified; I48.0 Paroxysmal atrial fibrillation; F41.9 Anxiety disorder, unspecified; I35.0 Nonrheumatic aortic (valve) stenosis; M85.80 Other specified disorders of bone density and structure, unspecified site; E83.39 Other disorders of phosphorus metabolism; K57.90 Diverticulosis of intestine, part unspecified, without perforation or abscess without bleeding; R74.8 Abnormal levels of other serum enzymes; I45.81 Long QT syndrome; I73.9 Peripheral vascular disease, unspecified; Z85.3 Personal history of malignant neoplasm of breast; Z99.81 Dependence on supplemental oxygen; Z87.891 Personal history of nicotine dependence
CPT/HCPCS: 36415; 36600; 71045-TC-FY; 80053; 80061; 82375; 82550; 82803; 83050; 83605; 83721; 83735; 83880; 84100; 84443; 84484; 85025; 85027; 85610; 85730; 87040; 93005; 93010; 93306-TC; 94660; 99285-25; J1644